=== PATIENT | female | born 1940 | race Caucasian/White ===

== ENCOUNTER → 2017-05-21 12:48 | Outpatient (CLI) | payer MEDICARE, OTHER, SELFPAY ==
[2017-05-21 14:55] LABS: BNP,B-Type NATRIURETIC PEPTIDE 247.3 pg/mL (0-100)
[2017-05-21 15:05] LABS: Erythrocyte Sedimentation Rate 3 mm/hr (0-30)
== END ==
PROVIDERS: Family Provider Family Medicine; PCP Family Medicine; Visit Provider Internal Medicine Pulmonary Disease
DX: R06.00 Dyspnea, unspecified (principal); R91.1 Solitary pulmonary nodule; M25.50 Pain in unspecified joint
CPT/HCPCS: 36415; 83880; 85652

== ENCOUNTER → 2017-05-24 12:15 | Outpatient (CLI) | payer MEDICARE, OTHER, SELFPAY ==
[2017-05-24 14:40] LABS: International Normalized Ratio 2.5; Prothrombin Time (Protime)PT. 27.1 SECONDS (11.7-14.9)
== END ==
PROVIDERS: Family Provider Family Medicine; PCP Family Medicine; Visit Provider Nurse Practitioner Family
DX: Z79.899 Other long term (current) drug therapy (principal)
CPT/HCPCS: 36415; 85610

== ENCOUNTER 2017-06-25 14:03 | Outpatient (RCR) | payer MEDICARE, OTHER, SELFPAY ==
[2017-06-25 16:06] LABS: International Normalized Ratio 1.8
== END 2017-07-23 13:20 | disposition home or self-care (01) ==
LOC: MTLAB 14:03
PROVIDERS: Family Provider Family Medicine; PCP Family Medicine; Visit Provider Nurse Practitioner Family
DX: I26.99 Other pulmonary embolism without acute cor pulmonale (principal); Z79.899 Other long term (current) drug therapy
CPT/HCPCS: 36415; 85610

== ENCOUNTER 2017-08-19 18:51 | Emergency (ER) | payer MEDICARE, OTHER, SELFPAY ==
[2017-08-19 18:51] VITALS: BP 175/66; PULSE 68; RESP 15; TEMP 37.1; O2SAT 97; BMI 30.2
[2017-08-19 19:26] LABS: Hematocrit 37.6 % (37-47); Hemoglobin 12.3 g/dl (12.0-15.0); Mean Corp Hgb Conc 32.7 g/gl (32-36); Mean Corpuscular Hgb 31.4 pg (27.0-32.0); Mean Corpuscular Volume 95.9 fL (81-99); Mean Platelet Vol. 9.7 fl (6.2-12.0); Platelet Count 137 K/mm3 (150-450); RBC Distribution Width CV 12.8 % (11.6-14.6); RBC Distribution Width SD 44.3 fl (35.1-43.9); Red Blood Count 3.92 M/mm3 (4.2-5.4); White Blood Count 5.7 K/mm3 (4.4-11.0)
[2017-08-19 19:33] LABS: Scan Indicated on CBC? Y/N NO
[2017-08-19 19:44] LABS: Anion Gap 8 (5-15); BUN 21 mg/dL (7-18); BUN/Creat Ratio 19.8 RATIO (10-20); Calcium,Total 8.5 mg/dL (8.5-10.1); Chloride 102 mmol/L (98-107); Creatinine, Serum 1.06 mg/dL (0.55-1.02); EST Glomerular Filtration Rate 53 mL/min (>60); Est Glom Filt Rate - Afr Amer 64 mL/min (>60); Estimated Creatinine Clearance 33.01 ml/min; Glucose 101 mg/dL (74-106); Potassium 4.3 mmol/L (3.5-5.1); Sodium Level 141 mmol/L (136-145)
[2017-08-19 19:47] VITALS: BP 140/59; BP 157/68; BP 166/80; PULSE 68; PULSE 70
--- NOTE | 2017-08-19 19:48 | ED.RN ---
PT STATES SHE HAS FALLEN SEVERAL TIMES SINCE EASTER AND POOR BALANCE.
--- NOTE | 2017-08-19 20:23 | ED.VISSUMM ---
- ER Visit Summary Date of Service: 08/19/17 Chief Complaint: Lightheadedness History of Present Illness: The patient is a 76 F who presents because of lightheadedness. She was sitting and titi to use the restroom. She stated she needed to have a bowel movement. She did complain of nausea question of diaphoresis. She had no other symptoms with this episode. She is reported chest pain intermittently that is transient at best. There is no associated symptoms with the chest pain. There is no radiation to the jaw, extremities or back. She denies black stool or maroon stool. She denies any vomiting. 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 Physical Examination: Vital signs are marked for an elevated blood pressure 140/8079. Orthostatic vital signs are normal. HEENT exam is remarkable for cataract surgery. Otherwise exam is normal. Heart is irregularly irregular. Lungs are clear to auscultation. Abdomen soft nontender. Neuro exam is nonfocal. Test Results: CBC is remarkable for a platelet count of 137. BMP is marked for threatening of 1.06. Troponin is less than 0.015. Emergency Department Course and Treatment: To evaluate patient's symptoms in light of her age and and will obtain EKG and troponin to evaluate for cardiac ischemia. CBC to evaluate for anemia. BMP to assess electrolyte and BUN/creatinine ratio. Orthostatics were obtained as well. Treatment Plan: Since her workup is unremarkable and she had urged to use the restroom in my professional medical opinion patient had a near psychosocial secondary to vasovagal event. Disposition: Discharged to home Impression: Vasovagal near syncopal episode Transient mid chest pain of noncardiac etiology History of non-Hodgkin's lymphoma History of hypertension History obstructive sleep apnea History of pulmonary embolus Atrial fibrillation with rate control This note was generated with [employer] dictation software. It may contain incorrect words, spelling, and punctuation that were not noted in review of the chart prior to signing ED Disposition - Plan for ED Patient: Disposition: Home or Assisted Living Chief Complaint: Syncope Instructions: ED Near Syncope Vasovagal Referrals: Roosevelt Mahan, [Primary Care Provider] - As Needed
--- NOTE | 2017-08-19 20:28 | ED.DCSUM_ITS ---
- ER Visit Summary Date of Service: 08/19/17 Chief Complaint: Lightheadedness History of Present Illness: The patient is a 76 F who presents because of lightheadedness. She was sitting and titi to use the restroom. She stated she needed to have a bowel movement. She did complain of nausea question of diaphoresis. She had no other symptoms with this episode. She is reported chest pain intermittently that is transient at best. There is no associated symptoms with the chest pain. There is no radiation to the jaw, extremities or back. She denies black stool or maroon stool. She denies any vomiting. 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 Physical Examination: Vital signs are marked for an elevated blood pressure 140/ 8079. Orthostatic vital signs are normal. HEENT exam is remarkable for cataract surgery. Otherwise exam is normal. Heart is irregularly irregular. Lungs are clear to auscultation. Abdomen soft nontender. Neuro exam is nonfocal. Test Results: CBC is remarkable for a platelet count of 137. BMP is marked for threatening of 1.06. Troponin is less than 0.015. Emergency Department Course and Treatment: To evaluate patient's symptoms in light of her age and and will obtain EKG and troponin to evaluate for cardiac ischemia. CBC to evaluate for anemia. BMP to assess electrolyte and BUN/ creatinine ratio. Orthostatics were obtained as well. Treatment Plan: Since her workup is unremarkable and she had urged to use the restroom in my professional medical opinion patient had a near psychosocial secondary to vasovagal event. Disposition: Discharged to home Impression: Vasovagal near syncopal episode Transient mid chest pain of noncardiac etiology History of non-Hodgkin's lymphoma History of hypertension History obstructive sleep apnea History of pulmonary embolus Atrial fibrillation with rate control This note was generated with [employer] dictation software. It may contain incorrect words, spelling, and punctuation that were not noted in review of the chart prior to signing ED Disposition - Plan for ED Patient: Disposition: Home or Assisted Living Chief Complaint: Syncope Instructions: ED Near Syncope Vasovagal Referrals: Roosevelt Mahan, [Primary Care Provider] - As Needed
[2017-08-19 20:36] VITALS: BP 144/74; PULSE 67; RESP 16
== END 2017-08-19 20:36 | disposition home or self-care (01) ==
PROVIDERS: Emergency Provider Emergency Medicine; Family Provider Family Medicine; PCP Family Medicine
DX: R55 Syncope and collapse (principal); G47.33 Obstructive sleep apnea (adult) (pediatric); I48.91 Unspecified atrial fibrillation; I10 Essential (primary) hypertension; R07.89 Other chest pain; Z85.72 Personal history of non-Hodgkin lymphomas; Z86.711 Personal history of pulmonary embolism; Z79.01 Long term (current) use of anticoagulants; Z79.899 Other long term (current) drug therapy; E03.9 Hypothyroidism, unspecified
CPT/HCPCS: 80048; 84484; 85027; 99285; A4216

== ENCOUNTER → 2017-08-28 14:09 | Outpatient (CLI) | payer MEDICARE, OTHER, SELFPAY ==
--- NOTE | 2017-08-28 14:09 | DT_ITS ---
This patient was seen during an EMR downtime August 26, 2017 - September 02, 2017. This patient may have a combination of paper and electronic documentation or all paper documentation. All documentation is viewable within the e-chart portion of [facility] for each patient visit.
[2017-09-02 11:29] LABS: T4 Free Direct 1.71 ng/dL (0.76-1.46); Thyroid Stim Hormone (TSH) 0.43 uIU/mL (0.358-3.74)
[2017-09-02 11:34] LABS: Hemoglobin 12.2 g/dl (12.0-15.0); Mean Corp Hgb Conc 32.1 g/gl (32-36); Mean Corpuscular Hgb 31.5 pg (27.0-32.0); Mean Corpuscular Volume 98.2 fL (81-99); Mean Platelet Vol. 10.7 fl (6.2-12.0); Platelet Count 185 K/mm3 (150-450); RBC Distribution Width CV 12.4 % (11.6-14.6); RBC Distribution Width SD 43.6 fl (35.1-43.9); Red Blood Count 3.87 M/mm3 (4.2-5.4); Scan Indicated on CBC? Y/N NO; White Blood Count 5.7 K/mm3 (4.4-11.0)
== END ==
PROVIDERS: Family Provider Family Medicine; PCP Family Medicine; Visit Provider Family Medicine
DX: E03.9 Hypothyroidism, unspecified (principal); I10 Essential (primary) hypertension; R55 Syncope and collapse; Z79.01 Long term (current) use of anticoagulants
CPT/HCPCS: 36415; 84439; 84443; 85027; 85610

== ENCOUNTER → 2017-09-04 13:28 | Outpatient (CLI) | payer MEDICARE, OTHER, SELFPAY ==
--- NOTE | 2017-09-04 13:33 | CT_ITS ---
STUDY: CT CHEST/THORAX WITHOUT CONTRAST REASON FOR EXAM: Female, 76 years old. Lung nodule follow-up. RADIATION DOSAGE (If Supplied By Facility): CTDIvol = ( 12.25 ) mGy, DLP = ( 345.98 ) mGycm TECHNIQUE: Transaxial imaging was performed without the administration of intravenous contrast material. Multiplanar coronal and sagittal images were reformatted. Individualized dose optimization techniques were used for this CT. COMPARISON: CT chest/thorax without contrast September 04, 2016. FINDINGS: The 5 mm nodule noted previously in the lingula of the left upper lobe is less conspicuous today. Groundglass nodules seen previously in the anteromedial right upper lobe (dictated as right middle lobe on previous exam) have cleared. The lungs again are underexpanded. Lobulated soft tissue density in the inferior right lower lobe abutting the diaphragm is unchanged. Calcified granuloma in the inferior right upper lobe near the minor fissure (series 4 image 41, 06 at image 114) is stable. 2 mm nodule in the anterolateral periphery of the right upper lobe on series 4 image 28 is also stable. There is stable 2-3 mm nodule in the lateral periphery of the left upper lobe on series 4 image 37. There is stable subsegmental atelectasis in the left lung base. There is no demonstrated pleural abnormality. Normal heart and pericardium. There is dense calcification in the mitral valve annulus Stable borderline to mildly enlarged lymph nodes in the medial aortopulmonary window and precarinal tissues. A few additional nonspecific subcentimeter lymph nodes seen in the left anterior mediastinum Normal hilar regions. Normal unenhanced pulmonary arteries. There is stable atherosclerotic calcification of the ascending aorta, the aortic arch, the proximal brachiocephalic arteries, and descending thoracic aorta. There are multi-level degenerative changes of the thoracic spine. There are relatively acute fractures of the posterior right eighth and 10th ribs, the 10th rib fracture showing two thirds shaft width displacement. There are healing fractures in varying stage at the anterolateral and lateral right eighth rib as well as posterolateral and lateral right ninth rib There are stable postsurgical changes along the fundus and greater curvature the stomach, as well as a cluster of surgical clips adjacent to the medial posterior aspect of the spleen. Surgical clips of prior cholecystectomy noted in the gallbladder fossa. CT/Chest without Contrast IMPRESSION: 1. Pulmonary nodules described on previous study are either stable or resolved, as noted. There are a few additional stable small nodules, also described above. 2. The lungs are hypoexpanded. Stable subsegmental atelectasis left lung base as well as lobulated soft tissue density in the inferior right lower lobe abutting the diaphragm, which may also be atelectasis. 3. There is dense calcification of the mitral valve. 4. There is vascular calcification seen in the coronary arteries and thoracic aorta. 5. Stable borderline to mildly enlarged lymph nodes in the aorticopulmonary window and precarinal tissues. No new adenopathy. 6. Multiple right rib fracture deformities of varying degrees of healing, as noted, new since previous exam. 7. Postsurgical changes of the stomach and posterior left upper quadrant again noted. Prior cholecystectomy. Electronically Signed: Sergio Robin MD at 15:35 EDT , Service support ,
== END ==
PROVIDERS: Family Provider Family Medicine; PCP Family Medicine; Visit Provider Internal Medicine Pulmonary Disease
DX: R91.8 Other nonspecific abnormal finding of lung field (principal)
CPT/HCPCS: 71250

== ENCOUNTER → 2017-09-09 10:44 | Outpatient (CLI) | payer MEDICARE, OTHER, SELFPAY | PROVIDERS: Family Provider Family Medicine; PCP Family Medicine; Visit Provider Family Medicine | DX: R55 Syncope and collapse (principal) | CPT/HCPCS: 93225; 93226 ==

== ENCOUNTER → 2017-09-12 15:48 | Outpatient (CLI) | payer MEDICARE, OTHER, SELFPAY ==
[2017-09-12 17:42] LABS: International Normalized Ratio 1.7; Prothrombin Time (Protime)PT. 19.8 SECONDS (11.7-14.9)
== END ==
PROVIDERS: Family Provider Family Medicine; PCP Family Medicine; Visit Provider Family Medicine
DX: Z79.899 Other long term (current) drug therapy (principal)
CPT/HCPCS: 85610

== ENCOUNTER 2017-10-04 15:30 | Emergency (ER) | payer MEDICARE, OTHER, SELFPAY ==
[2017-10-04 15:31] VITALS: BP 164/74; PULSE 69; RESP 16; TEMP 36.9; O2SAT 97; BMI 30.4
[2017-10-04] MEDS: Ondansetron 4 MG/2 ML Vial IV (16:30)
[2017-10-04] MEDS: Morphine 4 MG/ML Syringe IV (16:30)
[2017-10-04] MEDS: 0.9% Normal Saline 1,000 ML 150 ML IV (16:30)
[2017-10-04 16:33] LABS: Absolute Lymphocyte Count 1.42 X10^3/ul (0.83-4.51); Absolute Neutrophil Count 2.7 X10^3/uL (2.0-7.7); Basophil# 0.01 X10^3/uL; Basophil% 0.2 % (0-1); Eosinophil# 0.05 X10^3/uL; Eosinophils% 1.1 % (0-5); Hemoglobin 11.5 g/dl (12.0-15.0); Lymphocyte # 1.42 X10^3/ul (4.0); Lymphocyte % 30.3 % (19-41); Mean Corp Hgb Conc 33.8 g/gl (32-36); Mean Corpuscular Hgb 32.7 pg (27.0-32.0); Mean Corpuscular Volume 96.6 fL (81-99); Mean Platelet Vol. 10.5 fl (6.2-12.0); Monocyte# 0.46 X10^3/uL; Monocyte% 9.8 % (0-10); Neutrophil # 2.74 X10^3/uL (2.7-7.7); Neutrophil % 58.4 % (47-70); Platelet Count 122 K/mm3 (150-450); RBC Distribution Width CV 12.9 % (11.6-14.6); Red Blood Count 3.52 M/mm3 (4.2-5.4); White Blood Count 4.7 K/mm3 (4.4-11.0)
[2017-10-04 16:35] LABS: POSITIVE COUNT NO; POSITIVE DIFFERENTIAL NO; POSITIVE MORPHOLOGY NO
--- NOTE | 2017-10-04 16:35 | RAD_ITS ---
STUDY: X-RAY CHEST REASON FOR EXAM: Female, 77 years old. Right-sided pain TECHNIQUE: Frontal and lateral views of the chest. COMPARISON: CTA chest September 04, 2017 and January 25, 2017 FINDINGS: Surgical clips right and left upper quadrant. IVC filter present. The lungs are clear and expanded. There is no demonstrated pleural abnormality. Normal size heart. Normal mediastinum and radames. Normal visualized pulmonary arteries. Normal visualized aortic arch and descending thoracic aorta. Normal visualized thoracic spine. Normal visualized ribs, clavicles, and shoulders. There is no demonstrated abnormality of the visualized soft tissue structures of the upper abdomen. RAD/Chest PA and Lateral IMPRESSION: Normal x-ray examination of the chest. Electronically Signed: Lobo Teixeira MD at 17:01 EDT , Service support ,
[2017-10-04 17:12] LABS: AST(SGOT) 36 U/L (15-37); Alanine Aminotransfer ALT/SGPT 29 U/L (13-56); Albumin, Serum 3.5 g/dL (3.2-5.0); Alkaline Phosphatase 71 U/L (45-117); Anion Gap 7 (5-15); BUN 20 mg/dL (7-18); BUN/Creat Ratio 19.8 RATIO (10-20); Bilirubin, Direct 0.25 mg/dL (0.00-0.30); Calcium,Total 9.1 mg/dL (8.5-10.1); Chloride 105 mmol/L (98-107); Creatinine, Serum 1.01 mg/dL (0.55-1.02); EST Glomerular Filtration Rate 56 mL/min (>60); Est Glom Filt Rate - Afr Amer 68 mL/min (>60); Estimated Creatinine Clearance 32.44 ml/min; Glucose 90 mg/dL (74-106); Potassium 4.1 mmol/L (3.5-5.1); Protein, Total 6.5 g/dL (6.4-8.2); Sodium Level 141 mmol/L (136-145)
[2017-10-04 17:37] VITALS: PULSE 60; RESP 16; O2SAT 97
[2017-10-04 17:42] LABS: Bacteria 0 SEEN /hpf (None Seen); Mucous, Urine 0 SEEN /hpf (<or=2+); Red Blood Cells-Urine 0 SEEN /hpf (0-5); Squamous Epithelial Cells - UA 0 SEEN /hpf (5-10); White Blood Cells 0 SEEN /hpf (0-5)
[2017-10-04 17:51] LABS: Color, Urine Yellow (Yellow); Glucose, Dipstick Normal (Normal); Ketone-Dipstick Negative (Negative); Leukocyte Esterase-Dipstick Negative /ul (Negative); Nitrite-Dipstick Negative (Negative); Occult Blood-Urine Negative /ul (Negative); Protein-Dipstick Negative (Negative); Specific Gravity, Urine 1.025 (1.002-1.030); Urine Bilirubin Dipstick Negative (Negative); Urine Clarity Sl. Cloudy (Clear); Urine Urobilinogen Normal (Normal)
--- NOTE | 2017-10-04 18:25 | ED.VISSUMM ---
- ER Visit Summary Date of Service: 10/04/17 Chief Complaint: Right flank pain History of Present Illness: The patient is a [address] Roosevelt Mahan. She reports that she has right flank pain that began yesterday and is gradually increased since noon. Is a sharp pains 5 out of 10 with movement. It is 2 out of 10 at rest. She states it is not worsened by deep breaths. She denies any associated nausea, vomiting, diarrhea. Her last bowel movement was yesterday. She has had no melena or hematochezia. No dysuria or frequency. Patient reports that she had a CAT scan recently that showed she had multiple rib fractures on that side. She reports that she fell Easter Saturday and at the end of June. She reports her pain is much worse today than it had been. Physical Examination: Vitals: Stable. Afebrile. General: Well-nourished and well-developed. Head: Normocephalic atraumatic. Neck: Supple, no lymphadenopathy. No JVD. Nontender. Cardiovascular: Regular rate and rhythm. No murmurs. Respiratory: No respiratory distress. Clear to auscultation bilaterally. Mild tenderness palpation over the lower ribs on the right anteriorly. Moderate tenderness palpation over the right posterior ribs inferiorly. Abdominal: Soft, nontender, nondistended, normal bowel sounds. No guarding, rebound, or peritoneal signs. Back: Nontender. Extremities: Nontender, no edema. Skin: Normal color, no rash. Neurologic: Alert and oriented ?3. Cranial nerves II through XII are intact. Normal strength and sensation. Psych: Normal affect. Test Results: CBC is marked for an H&H 11.5 and 34.0, platelets 122. Chem-7 more for BUN of 20. LFTs are normal. UA is normal. Chest x-ray shows no acute disease. No pneumothorax or hemothorax. Emergency Department Course and Treatment: Reviewed the patient's prior CT. This was obtained September 04, 2017. It showed multiple right rib fractures in varying degrees of healing. I suspect this is the source of her pain. She treated morphine and Zofran IV and is resting comfortably. Treatment Plan: Patient will be discharged with [place] and Colace. She reports that Konstantin has an incentive spirometer at home. Instructed to follow-up Dr. Roosevelt Mahan in 1 week if not improving. Return to the emergency department for any worsening symptoms. Disposition: To home in improved and stable condition. Impression: 1. Rib fractures on right. This note was generated with [employer] dictation software. It may contain incorrect words, spelling, and punctuation that were not noted in review of the chart prior to signing ED Disposition - Plan for ED Patient: Disposition: Home or Assisted Living Chief Complaint: Flank Pain Instructions: ED Fx Rib Prescriptions: Ondansetron [Zofran Odt] 4 mg PO Q8H PRN PRN #10 tablet PRN Reason: Nausea Docusate Sodium [Colace] 100 mg PO DAILY #20 capsule Hydrocodone/Acetaminophen [[place] 5-325 Tablet] 1 - 2 each PO 4X/DAY PRN PRN 5 Days #20 tablet PRN Reason: Pain Referrals: Roosevelt Mahan DO [Primary Care Provider] - 1 Week if not improving
[2017-10-04 18:53] VITALS: BP 123/74; PULSE 68; RESP 15; O2SAT 98
== END 2017-10-04 18:55 | disposition home or self-care (01) ==
PROVIDERS: Emergency Provider Emergency Medicine; Family Provider Family Medicine; PCP Family Medicine
DX: R07.81 Pleurodynia (principal); S22.41XD Multiple fractures of ribs, right side, subsequent encounter for fracture with routine healing; W19.XXXD Unspecified fall, subsequent encounter; R06.00 Dyspnea, unspecified; R05 Cough; K59.00 Constipation, unspecified; R53.1 Weakness; I25.10 Atherosclerotic heart disease of native coronary artery without angina pectoris; I10 Essential (primary) hypertension; G47.33 Obstructive sleep apnea (adult) (pediatric); Z90.49 Acquired absence of other specified parts of digestive tract; Z79.01 Long term (current) use of anticoagulants; Z79.899 Other long term (current) drug therapy
CPT/HCPCS: 71046; 80048; 80076; 81001; 85025; 96361; 96374; 96375; 99284; J7030; A4216; J2405

== ENCOUNTER 2017-11-26 12:38 | Outpatient (RCR) | payer MEDICARE, OTHER, SELFPAY ==
[2017-11-26 13:54] LABS: International Normalized Ratio 1.8; Prothrombin Time (Protime)PT. 20.6 SECONDS (11.7-14.9)
== END 2017-11-26 14:00 ==
LOC: MTLAB 12:38
PROVIDERS: Family Provider Family Medicine; PCP Family Medicine; Visit Provider Family Medicine
DX: Z79.899 Other long term (current) drug therapy (principal)
CPT/HCPCS: 36415; 85610

== ENCOUNTER → 2018-01-03 15:26 | Outpatient (CLI) | payer MEDICARE, OTHER, SELFPAY ==
[2018-01-03 17:35] LABS: International Normalized Ratio 2.7; Prothrombin Time (Protime)PT. 28.5 SECONDS (11.7-14.9)
[2018-01-03 17:41] LABS: Erythrocyte Sedimentation Rate 4 mm/hr (0-30)
[2018-01-03 18:22] LABS: BNP,B-Type NATRIURETIC PEPTIDE 112.6 pg/mL (0-100)
== END ==
PROVIDERS: Family Provider Family Medicine; PCP Family Medicine; Visit Provider Internal Medicine Pulmonary Disease
DX: R91.1 Solitary pulmonary nodule (principal); R07.9 Chest pain, unspecified; R55 Syncope and collapse; Z79.899 Other long term (current) drug therapy; R06.00 Dyspnea, unspecified
CPT/HCPCS: 36415; 83880; 85610; 85652

== ENCOUNTER 2018-02-14 13:41 | Outpatient (RCR) | payer MEDICARE, OTHER, SELFPAY ==
[2018-02-03 15:55] LABS: International Normalized Ratio 1.6; Prothrombin Time (Protime)PT. 19.2 SECONDS (11.7-14.9)
[2018-02-14 17:56] LABS: International Normalized Ratio 3.4; Prothrombin Time (Protime)PT. 34.9 SECONDS (11.7-14.9)
== END 2018-02-14 14:00 | disposition home or self-care (01) ==
LOC: MTLAB 13:41
PROVIDERS: Family Provider Family Medicine; PCP Family Medicine; Referring Provider Family Medicine; Visit Provider Family Medicine
DX: Z79.899 Other long term (current) drug therapy (principal); Z79.01 Long term (current) use of anticoagulants
CPT/HCPCS: 36415; 83880; 85610

== ENCOUNTER → 2018-02-17 15:09 | Outpatient (CLI) | payer MEDICARE, OTHER, SELFPAY ==
[2017-12-04 13:09] VITALS: BMI 30.4
--- NOTE | 2018-02-17 15:12 | RAD_ITS ---
STUDY: X-RAY CHEST REASON FOR EXAM: Female, 77 years old. Lung nodules. TECHNIQUE: PA and lateral views of the chest. COMPARISON: PA and lateral chest x-ray as well as CT chest/thorax without contrast October 04, 2017. FINDINGS: The lungs again are under expanded, and there is some crowding that limits evaluation. There is stable lobulated density in the inferior right base superimposed on the dome of the diaphragm that correlates with areas of concern on prior imaging. No new infiltrate. There is no demonstrated pleural abnormality. Normal size heart. Normal mediastinum and radames. Normal visualized pulmonary arteries. There is stable mild atherosclerotic calcification of the aortic arch. There are stable degenerative changes and mild dextroscoliosis of the visualized thoracic spine. 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 Surgical clips again project in the bilateral upper quadrants of the abdomen. Inferior vena cava filter is again noted as well. RAD/Chest PA and Lateral IMPRESSION: Stable x-ray examination of the chest, as described. Lobulated density in the inferior right lung base may be nodular atelectasis or true pulmonary nodules. Electronically Signed: Sergio Robin MD at 18:44 EST , Service support ,
--- OUTSIDE RECORDS SUMMARY | 2018-04-01 13:40 | XMS RPT_ITS ---
:1940 Author Organization OHIP Support Name Relationship Address Phone R Unavailable Unavailable Unavailable ZIMMERLY, ROLANDO Unavailable [address] + [place] [address] R Unavailable Unavailable Unavailable ZIMMERLY, ROLANDO Unavailable [address] + [place] [address] R Unavailable Unavailable Unavailable ZIMMERLY, ROLANDO Unavailable [address] + [place] [address] R Unavailable Unavailable Unavailable ZIMMERLY, ROLANDO Unavailable [address] + [place] [address] R Unavailable Unavailable Unavailable ZIMMERLY, ROLANDO Unavailable [address] + [place] [address] R Unavailable Unavailable Unavailable ZIMMERLY, ROLANDO Unavailable [address] + [place] [address] R Unavailable Unavailable Unavailable ZIMMERLY, ROLANDO Unavailable [address] + [place] [address] R Unavailable Unavailable Unavailable ZIMMERLY, ROLANDO Unavailable [address] + [place] [address] ZIMMERLY, LUBA Unavailable [address] + [place] [address] ZIMMERLY, LUBA Unavailable [address] + [place] [address] ZIMMERLY, LUBA Unavailable [address] + [place] [address] ZIMMERLY, LUBA Unavailable [address] + [place] [address] R Unavailable Unavailable Unavailable ZIMMERLY, ROLANDO Unavailable [address] + [place] [address] R Unavailable Unavailable Unavailable ZIMMERLY, ROLANDO Unavailable [address] + [place] [address] R Unavailable Unavailable Unavailable ZIMMERLY, ROLANDO Unavailable [address] [phone] [place] [address] R Unavailable Unavailable Unavailable ZIMMERLY, ROLANDO Unavailable [address] + [place] [address] R Unavailable Unavailable Unavailable ZIMMERLY, ROLANDO Unavailable [address] [phone] [place] [address] R Unavailable Unavailable Unavailable ZIMMERLY, ROLANDO Unavailable [address] + [place] [address] R Unavailable Unavailable Unavailable ZIMMERLY, ROLANDO Unavailable [address] [phone] [place] [address] R Unavailable Unavailable Unavailable ZIMMERLY, ROLANDO Unavailable [address] [phone] [place] [address] R Unavailable Unavailable Unavailable ZIMMERLY, ROLANDO Unavailable [address] [phone] [place] [address] R Unavailable Unavailable Unavailable ZIMMERLY, ROLANDO Unavailable [address] [phone] [place] [address] R Unavailable Unavailable Unavailable ZIMMERLY, ROLANDO Unavailable [address] [phone] [place] [address] R Unavailable Unavailable Unavailable ZIMMERLY, ROLANDO Unavailable [address] [phone] [place] [address] R Unavailable Unavailable Unavailable ZIMMERLY, ROLANDO Unavailable [address] [phone] [place] [address] R Unavailable Unavailable Unavailable ZIMMERLY, ROLANDO Unavailable [address] [phone] [place] [address] R Unavailable Unavailable Unavailable ZIMMERLY, ROLANDO Unavailable [address] [phone] [place] [address] ZIMMERLY, LUBA Unavailable [address] + [place] [address] ZIMMERLY, LUBA Unavailable [address] + [place] [address] Care Team Providers Name Role Phone JAJA PHAN Chely SANA Attending Unavailable BROWN, PATRICIA Primary Care Unavailable YAJAIRA GARG CNP Attending Unavailable BROWN, PATRICIA Primary Care Unavailable YAJAIRA GARG CNP Attending Unavailable BROWN, PATRICIA Primary Care Unavailable Brown, Patricia Attending Unavailable Brown, Patricia Referring Unavailable Brown, Patricia Attending Unavailable Brown, Patricia Referring Unavailable Brown, Patricia Primary Care Unavailable Sibilia, Jonny Attending Unavailable Sibilia, Jonny Referring Unavailable Brown, Patricia Primary Care Unavailable Ellis, Esequiel COSTUME SHOP COORDINATOR-C Attending Unavailable Brown, Patricia Referring Unavailable Ellis, Esequiel COSTUME SHOP COORDINATOR-C Attending Unavailable Brown, Patricia Referring Unavailable Ellis, Esequiel COSTUME SHOP COORDINATOR-C Attending Unavailable Brown, Patricia Primary Care Unavailable Ellis, Esequiel COSTUME SHOP COORDINATOR-C Attending Unavailable Ellis, Esequiel COSTUME SHOP COORDINATOR-C Referring Unavailable Brown, Patricia Primary Care Unavailable Brown, Patricia Attending Unavailable Brown, Patricia Referring Unavailable Brown, Patricia Primary Care Unavailable Ellis, Esequiel COSTUME SHOP COORDINATOR-C Attending Unavailable Ellis, Esequiel COSTUME SHOP COORDINATOR-C Referring Unavailable Brown, Patricia Primary Care Unavailable Brown, Patricia Primary Care Unavailable Cirilo Sal Attending Unavailable Brown, Patricia Attending Unavailable Brown, Patricia Referring Unavailable Brown, Patricia Primary Care Unavailable Sibilia, Jonny Attending Unavailable Sibilia, Jonny Referring Unavailable Brown, Patricia Primary Care Unavailable Brown, Patricia Attending Unavailable Brown, Patricia Referring Unavailable Brown, Patricia Primary Care Unavailable Brown, Patricia Attending Unavailable Brown, Patricia Referring Unavailable Brown, Patricia Primary Care Unavailable Brown, Patricia Attending Unavailable Brown, Patricia Referring Unavailable Brown, Patricia Primary Care Unavailable Brown, Patricia Primary Care Unavailable Timmy Portillo Attending Unavailable Dwain Castaneda Attending Unavailable Brown, Patricia Attending Unavailable Brown, Patricia Referring Unavailable Brown, Patricia Primary Care Unavailable Brown, Patricia Attending Unavailable Brown, Patricia Referring Unavailable Brown, Patricia Primary Care Unavailable Brown, Patricia Attending Unavailable Brown, Patricia Referring Unavailable Brown, Patricia Primary Care Unavailable Sibilia, Jonny Attending Unavailable SibLakisha arita Referring Unavailable Brown, Patricia Primary Care Unavailable Sibilia, Jonny Attending Unavailable Sibilia, Jonny Referring Unavailable Brown, Patricia Primary Care Unavailable Brown, Patricia Attending Unavailable Brown, Patricia Referring Unavailable Brown, Patricia Primary Care Unavailable PROBLEMS PROBLEMS DATE TYPE CONDITION / CODE ATTENDING STATUS SOURCE 03/05/2018 Unknown E03.9 - Brown, Patricia Active [place] Hypothyroidism, Community unspecified / Hospital E03.9(ICD-10) Repository 03/05/2018 Unknown R53.83 - Other Patricia Mahan Active [place] fatigue / Community R53.83(ICD-10) Hospital Repository 03/05/2018 Unknown R29.898 - Other Patricia Mahan Active [place] symptoms and signs Community involving the Hospital musculoskeletal Repository system / R29.898(ICD-10) 03/05/2018 Unknown 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 / Community L60.3(ICD-10) Hospital Repository 02/25/2018 Unknown Z79.899 - Other long Patricia Mahan Active [place] term (current) drug Community therapy / Hospital Z79.899(ICD-10) Repository 12/04/2017 Unknown R55 - Syncope and Patircia Mahan Active [place] collapse / Community R55(ICD-10) Hospital Repository 12/24/2017 Unknown 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 of Community anticoagulants / Hospital Z79.01(ICD-10) Repository 10/04/2017 Unknown S22.39XA - Fracture Timmy Portillo Active [place] of one rib, Community unspecified side, Hospital initial encounter for Repository closed fracture / S22.39XA(ICD-10) 09/09/2017 Unknown R42 - Dizziness and Patricia Mahan Active [place] giddiness / Community R42(ICD-10) Hospital Repository 05/24/2017 Unknown C85.90 - Non-Hodgkin [place] gibson Active [place] lymphoma, COSTUME SHOP COORDINATOR-C Community unspecified, Hospital unspecified site / Repository C85.90(ICD-10) PROCEDURES PROCEDURES No Procedure Records FoundRESULTS RESULTS INTERNAL MEDICINE Observed: 03/05/2018 Status: F Source: [place] OFFICE VISIT 2:23 PM [facility] REPOSITORY [facility] [address] [place] [address] [place] [address] OFFICE VISIT Date of Service: 03/05/18 MR#: [id number] Acct: [id number] Name: JEAN PAUL LICEA Rep #: [id number] : 1940 Provider: Patricia Mahan DO Age/Sex: 77/F [place] [facility] [place] Status: Signed Intake Vital Signs03/05/18 Height 5 ft 03/05/18 Weight: 156 lb 03/05/18 Body Mass Index (BMI) 30.4 03/05/18 Blood Pressure 155/78 H Intake Visit Reasons: 3 MO FU Chief Complaint: 3 Month follow-up visit Is patient in pain?: No Allergies gentamicin Adverse Reaction (Verified 03/05/18 13:21) Unknown Medications Ascorbic Acid 500 mg PO DAILY 06/20/16 [History Confirmed 03/05/18] Calcium Carb/Vitamin D [Caltrate-600 With Vit D Tab] 1 tab PO BIDCM 06/20/16 [History Confirmed 03/05/18] Cetirizine HCl [Zyrtec] 10 mg PO DAILY 06/20/16 [History Confirmed 03/05/18] Cyanocobalamin (Vitamin B-12) [B-12] 1,000 mcg PO DAILY 06/20/16 [History Confirmed 03/05/18] Folic Acid/Vit B Complex and C [B-Complex with Vit C Caplet] 400 mcg PO DAILY 06/20/16 [History Confirmed 03/05/18] Ocean Gate-3 Fatty Acids/Fish Oil [Ocean Gate 3 1,000 mg Softgel] 1 ea PO DAILY 06/20/16 [History Confirmed 03/05/18] Vitamin E (Dl,Tocopheryl Acet) [E-200] 200 unit PO DAILY 06/20/16 [History Confirmed 03/05/18] Multivitamin [Multiple Vitamins] 1 ea PO DAILY 06/21/16 [History Confirmed 03/05/18] artificial tears (hypromellose) 0.3 % eye gel 1 drp OPHTHALMIC ONCE 05/24/17 [History Confirmed 03/05/18] carboxymethylcellulose sodium 1 % eye liquid gel drops 1 drp OPHTHALMIC 4-8XD PRN 05/24/17 [History Confirmed 03/05/18] prednisolone acetate 1 % eye drops,suspension 1 drp OPHTHALMIC Q4H 05/24/17 [History Confirmed 03/05/18] solifenacin 10 mg tablet 10 mg PO QDAY 07/16/17 [History Confirmed 03/05/18] alendronate 70 mg tablet 70 mg PO QWEEK #14 tab 08/04/17 [Rx Confirmed 03/05/18] levothyroxine 75 mcg tablet 75 mcg PO QDAY #90 tab 08/04/17 [Rx Confirmed 03/05/18] Warfarin [Coumadin] 1 mg PO SUTUTHSA 08/19/17 [History Confirmed 03/05/18] Docusate Sodium [Colace] 100 mg PO DAILY #20 cap 10/04/17 [Rx Confirmed 03/05/18] amlodipine 5 mg tablet 5 mg PO QDAY #90 tab 10/18/17 [Rx Confirmed 03/05/18] furosemide 40 mg tablet 40 mg PO DAILY PRN #90 tab 10/18/17 [Rx Confirmed 03/05/18] lisinopril 40 mg tablet 40 mg PO DAILY #90 tab 10/18/17 [Rx Confirmed 03/05/18] mirabegron ER 25 mg tablet,extended release 24 hr 25 mg PO DAILY 12/04/17 [History Confirmed 03/05/18] nabumetone 500 mg tablet 500 mg PO BID PRN #180 tab 01/21/18 [Rx Confirmed 03/05/18] warfarin 2 mg tablet 2 mg PO MOWEFR #14 tab 02/11/18 [Rx Confirmed 03/05/18] [facility] Medical History History of pneumonia (Acute) Osteoporosis (Chronic) Degenerative arthritis (Acute) Pulmonary embolism (Acute) Corneal dystrophy (Acute) Non Hodgkin's lymphoma (Acute) Arthritis (Chronic) Chronic pain (Chronic) History of blood clots (Acute) Hypertension (Chronic) Hypothyroidism (Chronic) Sleep apnea (Chronic) Surgical History History of Achilles tendon repair (Acute) History of cholecystectomy (Acute) History of colonoscopy (Acute) history of heart cath (Acute) Family History Father Heart disease Cancer prostate Mother No problems noted. Social History Smoking Status: Never smoker alcohol intake: never substance use type: does not use what type of physical activity do you participate in: none HPI HPI Chief Complaint: 3 Month follow-up visit Details: JEAN PAUL LICEA, is a 77 F who presents to the office today for multiple problems. She is having increasing difficulty walking but it seems to be basically because of being weak. She has nails on her left foot that are very thickened and she is unable to cut. She is concerned that her thyroid dose may be off as it has not been checked in about a year. Her major complaint is that she is increasingly weak and increasingly unstable when she walks. ROS Const Constitutional: No chills, fatigue, fever(s), frequent falls, malaise, weakness, sleep problems or change in appetite Eyes Eyes: No blurry vision, change in vision, double vision, discharge or visual disturbances ENT ENT: Positive for mouth pain (Tongue sore); no abnormal hearing, ear pain, ear pressure, tinnitus or dizziness/vertigo Resp Respiratory: No cough, shortness of breath or wheezing Cardio Cardiology: No chest pain at rest, chest pain with exertion, shortness of breath, dyspnea on exertion, generalized swelling, irregular heart rhythm, lightheadedness, orthopnea, fast heart rate or palpitations Gastro GI: No abdominal pain, change in bowel habits, constipation, diarrhea, nausea/dyspepsia or vomiting Genitourinary-Female: No difficulty urinating, burning urination, painful urination, urinary incontinence, urinary frequency, urinary urgency, urinary hesitancy, urinary retention, Frequent nighttime urination/ nocturia, sexual problems, genital lesions, abnormal vaginal bleeding, pelvic pain, vaginal dryness, vaginal odor or Vaginal Itching Musc Musculoskeletal: No joint pain, back pain, joint swelling, limited range of motion, numbness or tingling Skin Skin: Positive for nail changes (Left large toe); no change in skin color, itching, rash or wounds Breast Breast: No breast lump or breast pain Neuro Neurology: Positive for unsteady gait/balance, dizziness and memory loss; no frequent falls, weakness, visual disturbances, abnormal hearing, numbness, tingling or loss of vision Psych Psychiatric: No change in appetite, Positive for memory loss, No anxiety, No depression, No Thoughts of harming yourself/Others Endo Endocrine: No fatigue, heat intolerance, increased thirst/drinking, increased hunger or increased urination Aller/Imm Allergy/Immunologic: No wheezing, itchy eyes or seasonal allergy symptoms Lamin/Lymp Hematologic/Lymphatic: No easy bleeding, easy bruising or enlarged lymph nodes Exam Const General: frail appearing Nutritional Appearance: average body habitus Orientation: oriented x3 HENMT Head: normal to inspection Ears: hearing grossly normal bilaterally Nose: external nose normal Face and sinus: normal facial exam Mouth: oral mucosae normal Teeth and gingiva: dentition normal Throat: posterior oropharynx normal Neck Neck: no lymphadenopathy Neck mass: No Resp Effort AND Inspection: normal respiratory effort Auscultation: Bilateral: Clear to Auscultation Cardio Rate: regular rate Rhythm: regular rhythm Skin Lesions: no lesions Neuro Gait: gait assisted Method: walking stick Extrem General: no clubbing, cyanosis or edema Assessment AND Plan Problems 1. Osteoporosis M81.0 2. Degenerative arthritis M19.90 3. Non Hodgkin's lymphoma C85.90 4. History of blood clots Z86.718 5. Hypertension I10 6. Generalized weakness R53.1 Plan This patient was seen for routine checkup. Her health appears to be declining as she is much more frail and is having significant difficulty with walking. She does not complain of any specific pain just weakness in the feeling of being very unstable. She also has very dystrophic nails on the left foot but other than that her exam was unchanged from prior exams. I have ordered a number of different things for her. First were going to get physical therapy on to see if we can help with gait training. Second are going to have her see a news videotape editor to deal with the dystrophic nails on the left foot. Then I going to do some blood work to evaluate her blood count check her thyroid status. I am not very hopeful that with the multiplicity of problems she has had in the past that were going to be able to keep her out of a care facility for much longer. Orders Orders: Referrals: Plan Detail Follow Up 3 Months Coding Level of Care Code Off vis,est,level 4 Diagnoses Osteoporosis M81.0 Degenerative arthritis M19.90 Non Hodgkin's lymphoma C85.90 History of blood clots Z86.718 Hypertension I10 Generalized weakness R53.1 03/05/18 1423 <Electronically signed by Patricia Mahan DO> Date Patricia Mahan DO Cosigner Signature: Date (if applicable) CC: CBC W/DIFF, AUTOMATED Collected: 03/05/2018 Status: F Source: [place] 2:15 PM [facility] REPOSITORY TYPE CODE TESTS RESULT OUT OF RANGE REFERENCE UNITS LAB L100.1000 4.4-11.0 K/mm3 Normal WBC 4.6 LAB L100.1200 4.2-5.4 M/mm3 Low RBC 3.52 LAB L100.1300 12.0-15.0 g/dl Low HGB 11.5 LAB L100.1400 37-47 % Low HCT 34.4 LAB L100.1500 81-99 fL Normal MCV 97.7 LAB L100.1600 27.0-32.0 pg High MCH 32.7 LAB L100.1700 32-36 g/gl Normal MCHC 33.4 LAB L100.1810 11.6-14.6 % Normal RDW CV 12.2 LAB L100.1820 35.1-43.9 fl Normal RDW SD 42.0 LAB L100.1900 150-450 K/mm3 Low PLT 148 LAB L100.2000 6.2-12.0 fl Normal MPV 10.1 LAB L100.2100 47-70 % Normal NEUT% 65.9 LAB L100.2200 19-41 % Normal LY% 23.9 LAB L100.2300 0-10 % Normal MONO% 9.1 LAB L100.2400 0-5 % Normal EO% 0.9 LAB L100.2500 0-1 % Normal BASO% 0.2 LAB L100.2550 0.0-0.9 % Normal IM GRAN % 0.000 Result Comment: IG% - Immature Granulocytes (promyelocytes, myelocytes and metamyelocytes) > 1% indicates that a LEFT SHIFT is Present. LAB L100.2620 2.0-7.7 X10 3/uL Normal Absolute Neut 3.0 LAB L100.2720 0.83-4.51 X10 3/ul Normal Absolute Lymph 1.10 Performed By: #### L100.0100 #### [facility] [address] [place], [address] THYROID STIM HORMONE Collected: 03/05/2018 Status: F Source: [place] (TSH) 2:15 PM [facility] REPOSITORY TYPE CODE TESTS RESULT OUT OF RANGE REFERENCE UNITS LAB L501.9520 0.358-3.74 uIU/mL Low TSH 0.31 Performed By: #### L501.9520, L506.0400 #### [facility] [address] [place], [address] T4 FREE DIRECT Collected: 03/05/2018 Status: F Source: [place] 2:15 PM [facility] REPOSITORY TYPE CODE TESTS RESULT OUT OF REFERENCE UNITS RANGE LAB L506.0400 0.76-1.46 ng/dL High T4 FREE 1.70 DIRECT Performed By: #### L501.9520, L506.0400 #### [facility] [address] [place], [address] PROTHROMBIN TIME W/INR Collected: 03/03/2018 Status: F Source: [place] 1:37 PM [facility] REPOSITORY TYPE CODE TESTS RESULT OUT OF RANGE REFERENCE UNITS LAB L300.4150 11.7-14.9 SECONDS High PROTIME 23.1 LAB L300.4200 Normal INR 2.0 Performed By: #### L300.3900 #### [facility] [address] [place], [address] PROTHROMBIN TIME W/INR Collected: 02/26/2018 Status: F Source: [place] 1:27 PM [facility] REPOSITORY TYPE CODE TESTS RESULT OUT OF RANGE REFERENCE UNITS LAB L300.4150 11.7-14.9 SECONDS High PROTIME 33.8 LAB L300.4200 Normal INR 3.3 Performed By: #### L300.3900 #### [facility] [address] [place], [address] CHEST PA AND LATERAL Observed: 02/17/2018 Status: F Source: [place] 3:13 PM [facility] REPOSITORY [facility] [address] [place] [address] Chest PA and Lateral MR#: [id number] Acct: [id number] Name: JEAN PAUL LICEA Rep #: [id number] : 1940 F 77 From: Morris Robin MD PCP: Patricia Mahan DO Status: REG CLI Study: Chest PA and Lateral Date of Exam: 02/17/18 Exam# [id number] Ordering Dr: Jonny Esteban MD STUDY: X-RAY CHEST REASON FOR EXAM: Female, 77 years old. Lung nodules. TECHNIQUE: PA and lateral views of the chest. COMPARISON: PA and lateral chest x-ray as well as CT chest/thorax without contrast October 04, 2017. FINDINGS: The lungs again are under expanded, and there is some crowding that limits evaluation. There is stable lobulated density in the inferior right base superimposed on the dome of the diaphragm that correlates with areas of concern on prior imaging. No new infiltrate. There is no demonstrated pleural abnormality. Normal size heart. Normal mediastinum and radames. Normal visualized pulmonary arteries. There is stable mild atherosclerotic calcification of the aortic arch. There are stable degenerative changes and mild dextroscoliosis of the visualized thoracic spine. 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 Surgical clips again project in the bilateral upper quadrants of the abdomen. Inferior vena cava filter is again noted as well. RAD/Chest PA and Lateral IMPRESSION: Stable x-ray examination of the chest, as described. Lobulated density in the inferior right lung base may be nodular atelectasis or true pulmonary nodules. Electronically Signed: Sergio Robin MD at 18:44 EST , Service support , CC: Patricia Mahan DO; Jonny Esteban MD Navigation Teacher: Signed PROTHROMBIN TIME W/INR Collected: 02/14/2018 Status: F Source: [place] 1:44 PM [facility] REPOSITORY TYPE CODE TESTS RESULT OUT OF RANGE REFERENCE UNITS LAB L300.4150 11.7-14.9 SECONDS High PROTIME 34.9 LAB L300.4200 Normal INR 3.4 Performed By: #### L300.3900 #### [facility] [address] [address] [place], [place], [address] PROTHROMBIN TIME W/INR Collected: 02/03/2018 Status: F Source: [place] 2:25 PM [facility] REPOSITORY TYPE CODE TESTS RESULT OUT OF RANGE REFERENCE UNITS LAB L300.4150 11.7-14.9 SECONDS High PROTIME 19.2 LAB L300.4200 Normal INR 1.6 Performed By: #### L300.3900 #### [facility] [address] [place], [place], [address] PROTHROMBIN TIME W/INR Collected: 01/03/2018 Status: F Source: [place] 3:30 PM [facility] REPOSITORY Order Comment: Comments: Standing order --to be done monthly DR. MAHAN ORDERED PT DR. ESTEBAN ORDERED BTNP,SED Comments: Standing order --to be done monthly TYPE CODE TESTS RESULT OUT OF RANGE REFERENCE UNITS LAB L300.4150 11.7-14.9 SECONDS High PROTIME 28.5 LAB L300.4200 Normal INR 2.7 Performed By: #### L300.3900 #### [facility] [address] [place], [place], [address] ERYTHROCYTE SED RATE Collected: 01/03/2018 Status: F Source: [place] 3:30 PM [facility] REPOSITORY Order Comment: DR. MAHAN ORDERED PT DR. ESTEBAN ORDERED BTNP,SED TYPE CODE TESTS RESULT OUT OF RANGE REFERENCE UNITS LAB L102.0000 0-30 mm/hr Normal SED RATE 4 Performed By: #### L101.9900 #### [facility] [place], [place], [address] BNP,B-TYPE NATRIURETIC Collected: 01/03/2018 Status: F Source: [place] PEPTIDE 3:30 PM [facility] REPOSITORY Order Comment: DR. MAHAN ORDERED PT DR. ESTEBAN ORDERED BTNP,SED TYPE CODE TESTS RESULT OUT OF RANGE REFERENCE UNITS LAB L503.6620 0-100 pg/mL High B-TYPE 112.6 ZAKI PEP Performed By: #### L503.6620 #### [facility] [address] [place], [place], [address] INTERNAL MEDICINE Observed: 12/04/2017 Status: F Source: [place] OFFICE VISIT 2:20 PM [facility] [address] [place] [address] [place] [address] OFFICE VISIT Date of Service: 12/04/17 MR#: [id number] Acct: [id number] Name: JEAN PAUL LICEA Rep #: [id number] : 1940 Provider: Patricia Mahan DO Age/Sex: 77/F [place] [facility] Status: Signed Intake Vital Signs12/04/17 Height 5 ft Intake Visit Reasons: 3 mo fu Chief Complaint: follow-up visit Is patient in pain?: No Allergies gentamicin Adverse Reaction (Verified 10/04/17 15:33) Unknown Medications Ascorbic Acid 500 mg PO DAILY 06/20/16 [History Confirmed 08/19/17] Calcium Carb/Vitamin D [Caltrate-600 With Vit D Tab] 1 tab PO BIDCM 06/20/16 [History Confirmed 08/19/17] Cetirizine HCl [Zyrtec] 10 mg PO DAILY 06/20/16 [History Confirmed 12/04/17] Cyanocobalamin (Vitamin B-12) [B-12] 1,000 mcg PO DAILY 06/20/16 [History Confirmed 08/19/17] Folic Acid/Vit Bcomp,C [B-Complex with Vit C Caplet] 400 mcg PO DAILY 06/20/16 [History Confirmed 08/19/17] Ocean Gate-3 Fatty Acids/Fish Oil [Ocean Gate 3 1,000 mg Softgel] 1 ea PO DAILY 06/20/16 [History Confirmed 08/19/17] Vitamin E (Dl,Tocopheryl Acet) [E-200] 200 unit PO DAILY 06/20/16 [History Confirmed 08/19/17] Multivitamin [Multiple Vitamins] 1 ea PO DAILY 06/21/16 [History Confirmed 08/19/17] artificial tears (hypromellose) 0.3 % eye gel 1 drp OPHTHALMIC ONCE 05/24/17 [History Confirmed 08/19/17] carboxymethylcellulose sodium 1 % eye liquid gel drops 1 drp OPHTHALMIC 4-8XD PRN 05/24/17 [History Confirmed 08/19/17] ofloxacin 0.3 % eye drops 2 drp OPHTHALMIC Q4H 05/24/17 [History Confirmed 08/19/17] prednisolone acetate 1 % eye drops,suspension 1 drp OPHTHALMIC Q4H 05/24/17 [History Confirmed 08/19/17] solifenacin 10 mg tablet 10 mg PO QDAY 07/16/17 [History Confirmed 08/19/17] alendronate 70 mg tablet 70 mg PO QWEEK #14 tab 08/04/17 [Rx Confirmed 08/19/17] levothyroxine 75 mcg tablet 75 mcg PO QDAY #90 tab 08/04/17 [Rx Confirmed 12/04/17] Warfarin Sodium [Coumadin] 2 mg PO MOWEFR 08/19/17 [History Confirmed 08/19/17] Warfarin [Coumadin] 1 mg PO SUTUTHSA 08/19/17 [History Confirmed 08/19/17] Docusate Sodium [Colace] 100 mg PO DAILY #20 cap 10/04/17 [Rx] amlodipine 5 mg tablet 5 mg PO QDAY #90 tab 10/18/17 [Rx] furosemide 40 mg tablet 40 mg PO DAILY PRN #90 tab 10/18/17 [Rx] lisinopril 40 mg tablet 40 mg PO DAILY #90 tab 10/18/17 [Rx] nabumetone 500 mg tablet 500 mg PO BID PRN #60 tab 12/03/17 [Rx] mirabegron ER 25 mg tablet,extended release 24 hr 25 mg PO DAILY 12/04/17 [History Confirmed 12/04/17] PFSH Medical History History of pneumonia (Acute) Osteoporosis (Chronic) Degenerative arthritis (Acute) Pulmonary embolism (Acute) Corneal dystrophy (Acute) Non Hodgkin's lymphoma (Acute) Arthritis (Chronic) Chronic pain (Chronic) History of blood clots (Acute) Hypertension (Chronic) Hypothyroidism (Chronic) Sleep apnea (Chronic) Surgical History History of Achilles tendon repair (Acute) History of cholecystectomy (Acute) History of colonoscopy (Acute) history of heart cath (Acute) Family History Father Heart disease Cancer prostate Mother No problems noted. Social History Smoking Status: Never smoker alcohol intake: never substance use type: does not use what type of physical activity do you participate in: none HPI HPI Chief Complaint: follow-up visit Details: JEAN PAUL LICEA, is a 77 F who presents to the office today for routine check up. She has had some more episodes of syncope ROS Const Constitutional: Positive for fatigue and weakness; no weight change, body ache, chills, sleep problems, fever(s), change in appetite, snoring, frequent falls, headache(s) or excessive sweating Eyes Eyes: No change in vision, eye pain, light sensitivity or blurry vision ENT ENT: No headache(s), abnormal hearing, ear pain, tinnitus, nasal congestion, sore throat or neck pain Resp Respiratory: No snoring, cough, shortness of breath or wheezing Cardio Cardiology: Positive for chest pain at rest; no excessive sweating, chest pain with exertion, shortness of breath, dyspnea on exertion, palpitations, orthopnea or lightheadedness Gastro GI: Positive for constipation; no abdominal pain, change in bowel habits, diarrhea, vomiting, nausea/dyspepsia or cramping Genitourinary-Female: No burning urination, painful urination, urinary incontinence, urinary frequency, abnormal vaginal bleeding, pelvic pain or other Musc Musculoskeletal: No neck pain, abnormal walking, joint pain, back pain, limited range of motion, numbness or tingling Skin Skin: No redness, dry skin, itching, lesions, wounds or rash Neuro Neurology: Positive for weakness, dizziness and memory loss; no frequent falls, headache(s), abnormal hearing, abnormal walking, numbness, tingling or abnormal speech Psych Psychiatric: No change in appetite, Positive for memory loss, No anxiety, No depression, No Thoughts of harming yourself/Others Endo Endocrine: Positive for fatigue; no excessive sweating, cold intolerance, increased thirst/drinking, heat intolerance, flushing or increased hunger Aller/Imm Allergy/Immunologic: No wheezing, itchy eyes, hives or seasonal allergy symptoms Lamin/Lymp Hematologic/Lymphatic: No easy bleeding, easy bruising or enlarged lymph nodes Exam Const General: frail appearing Nutritional Appearance: average body habitus Orientation: oriented x3 [facility] Head: normal to inspection Ears: hearing grossly normal bilaterally Nose: external nose normal Face and sinus: normal facial exam Mouth: oral mucosae normal Teeth and gingiva: dentition normal Throat: posterior oropharynx normal Neck Neck: no lymphadenopathy Neck mass: No Resp Effort AND Inspection: normal respiratory effort Auscultation: Bilateral: Clear to Auscultation Cardio Rate: regular rate Rhythm: regular rhythm Skin Lesions: no lesions Extrem General: no clubbing, cyanosis or edema Assessment AND Plan Problems 1. Hypertension I10 2. History of blood clots Z86.718 3. History of non-Hodgkin's lymphoma Z85.72 4. 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 Syncopal episodes R55 Patient Instructions This patient is here for regular checkup. Since I last have seen her she is gone through her 30 day patient monitor. On this monitor it showed 4 episodes where she had a winky block phenomena dropping her heart rate to as low as 36. When I done a 48 hour Holter monitor earlier this summer it did not show that arrhythmia and that certainly explains her episodes of syncope. Physical examination is unchanged I told her that perhaps decreasing or eliminating the metoprolol would take care of this problem but if it did not pacemaker would be the only other solution she understood this we also discussed problems she is having with her eyes and indeed apparently needs another retinal surgery. I talked about her INR results the need to do regular monthly checks to make sure she falls within therapeutic limits and she understands that. 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 Syncopal episodes R55 12/04/17 1420 <Electronically signed by Patricia Mahan DO> Date Patricia Mahan DO Cosigner Signature: Date (if applicable) CC: PROTHROMBIN TIME W/INR Collected: 11/26/2017 Status: F Source: [place] 12:43 PM [facility] REPOSITORY TYPE CODE TESTS RESULT OUT OF RANGE REFERENCE UNITS LAB L300.4150 11.7-14.9 SECONDS High PROTIME 20.6 LAB L300.4200 Normal INR 1.8 Performed By: #### L300.3900 #### [facility] [address] [place], [address] Observed: 11/18/2017 Status: F Source: [facility] 12:16 PM [facility] REPOSITORY . MICRO - Microbiology PROCEDURE: Urine Culture [*1] SOURCE: Urine BODY SITE: COLLECTED DATE/TIME: 11/18/2017 12:16 EDT RECEIVED DATE/TIME: 11/18/2017 22:35 EDT START DATE/TIME: 11/18/2017 22:35 EDT FREE TEXT SOURCE: FINAL REPORTS Final Report [] Verified Date/Time/Personnel: 11/20/2017 07:15 EDT 10,000 organisms per mL Mixed without predominant isolate(s). Sensitivity Testing not indicated. Probably contamination. Repeat culture suggested. PRELIMINARY REPORTS Preliminary Report [] Verified Date/Time/Personnel: 11/19/2017 08:38 EDT No growth to date Performing Locations *1: This test was performed at: [facility], [address] [place] [address], [address] [place] [address] Performed By: #### CUR #### [address] [address] UA Collected: 11/18/2017 Status: F Source: [facility] 12:15 PM [facility] REPOSITORY TYPE CODE TESTS RESULT OUT OF RANGE REFERENCE UNITS LAB SPCUA(RAMIRO NC) UA Specimen Type Not Given LAB CLRUA(RAM[place]O NC) UA Color Yellow LAB APPUA(RAMIRO Clear NC) UA Appear Clear LAB SGUA(LOIN C) UA Spec Unknown Grav 1.005 LAB GLUA(LOIN Negative mg/dL C) UA Glucose Negative LAB BILUA(RAMIRO Negative NC) UA Bili Negative LAB KETUA(RAM[place] Negative mg/dL NC) UA Ketones Negative LAB BLDUA(RAMIRO Negative NC) UA Blood Negative LAB PHUA(LOIN C) UA pH 6.0 LAB PROUA(RAMIRO Negative mg/dL NC) UA Protein Negative LAB UROUA(RAMIRO E.U./dL NC) UA Urobilinogen 0.2 LAB NITUA(RAMIRO Negative NC) UA Nitrite Negative LAB LEUUA(RAMIRO Negative NC) UA Leuk Est Negative Performed By: #### UAMICAO, UA #### [facility] [address] [place], [place] [address] .URINALYSIS MICROSCOPIC Collected: 11/18/2017 Status: F Source: [facility] 12:15 PM [facility] REPOSITORY TYPE CODE TESTS RESULT OUT OF REFERENCE UNITS RANGE LAB WBCUA(LOIN None Seen /hpf C) UA WBC None Seen LAB RBCUA(LOIN None Seen /hpf C) UA RBC None Seen LAB EPIUA(LOIN None Seen /hpf C) UA Squam Epithelial None Seen Performed By: #### UAMICAO, UA #### [facility] [address] [place], [place] [address] BMP Collected: 11/18/2017 Status: F Source: [facility] 12:15 [facility] REPOSITORY TYPE CODE TESTS RESULT OUT OF REFERENCE UNITS RANGE LAB GLU(LOINC) 83-110 mg/dL Glucose Level 88 LAB NA(LOINC) 136-145 mmol/L Sodium Level 141 LAB K(LOINC) 3.5-5.1 mmol/L Potassium Level 4.1 LAB CL(LOINC) 98-107 mmol/L Chloride 101 LAB CO2(LOINC) 23-31 mmol/L CO2 High 34 LAB EBAL(LOINC mEq/L ) Electrolyte Balance 6.0 LAB BUN(LOINC) 7-18 mg/dL BUN High 27 LAB CRE(LOINC) 0.55-1.02 mg/dL Creatinine High Lvl (s) 1.20 LAB BC(LOINC) 7-27 ratio BUN/Creatinine 22 Ratio LAB CA(LOINC) 8.4-10.2 mg/dL Calcium Lvl 9.4 Performed By: #### GFR, BMP #### [address] [address] .GFR Collected: 11/18/2017 Status: F Source: [facility] 12:15 [facility] REPOSITORY TYPE CODE TESTS RESULT OUT OF REFERENCE UNITS RANGE LAB GFRAA(LOINC ml/min/1.73 ) sqm GFR 53 Colombian Result Comment: GFR Population mean for , Non- Americans Ages 20-29 = 116 mL/min/1.73 sq.m. Ages 30-39 = 107 mL/min/1.73 sq.m. Ages 40-49 = 99 mL/min/1.73 sq.m. Ages 50-59 = 93 mL/min/1.73 sq.m. Ages 60-69 = 85 mL/min/1.73 sq.m. Ages 70+ = 75 mL/min/1.73 sq.m. Chronic Kidney Disease: Less than 60 mL/min/1.73 square meters End Stage Renal Disease: Less than 15 mL/min/1.73 square meters LAB GFRNO(LOINC) ml/min/1.73sqm GFR Non- 43 Result Comment: GFR Population mean for , Non- Americans Ages 20-29 = 116 mL/min/1.73 sq.m. Ages 30-39 = 107 mL/min/1.73 sq.m. Ages 40-49 = 99 mL/min/1.73 sq.m. Ages 50-59 = 93 mL/min/1.73 sq.m. Ages 60-69 = 85 mL/min/1.73 sq.m. Ages 70+ = 75 mL/min/1.73 sq.m. Chronic Kidney Disease: Less than 60 mL/min/1.73 square meters End Stage Renal Disease: Less than 15 mL/min/1.73 square meters Performed By: #### GFR, [facility] #### [place] [address] EMERGENCY DEPARTMENT Observed: 10/05/2017 Status: F Source: [place] SUMMARY 12:49 AM [facility] REPOSITORY [facility] Medical Records Department [address] [place] [id number] Emergency Department Summary 10/04/17 1825 MR#: [id number] Acct: [id number] Name: JEAN PAUL LICEA Rep #: [id number] : 1940 77 From: Timmy Portillo MD PCP: Patricia Mahan DO Status: DEP ER - ER Visit Summary Date of Service: 10/04/17 Chief Complaint: Right flank pain History of Present Illness: The patient is a [address] Patricia Mahan. She reports that she has right flank pain that began yesterday and is gradually increased since noon. Is a sharp pains 5 out of 10 with movement. It is 2 out of 10 at rest. She states it is not worsened by deep breaths. She denies any associated nausea, vomiting, diarrhea. Her last bowel movement was yesterday. She has had no melena or hematochezia. No dysuria or frequency. Patient reports that she had a CAT scan recently that showed she had multiple rib fractures on that side. She reports that she fell Easter Saturday and at the end of June. She reports her pain is much worse today than it had been. Physical Examination: Vitals: Stable. Afebrile. General: Well-nourished and well-developed. Head: Normocephalic atraumatic. Neck: Supple, no lymphadenopathy. No JVD. Nontender. Cardiovascular: Regular rate and rhythm. No murmurs. Respiratory: No respiratory distress. Clear to auscultation bilaterally. Mild tenderness palpation over the lower ribs on the right anteriorly. Moderate tenderness palpation over the right posterior ribs inferiorly. Abdominal: Soft, nontender, nondistended, normal bowel sounds. No guarding, rebound, or peritoneal signs. Back: Nontender. Extremities: Nontender, no edema. Skin: Normal color, no rash. Neurologic: Alert and oriented 3. Cranial nerves II through XII are intact. Normal strength and sensation. Psych: Normal affect. Test Results: CBC is marked for an H AND H 11.5 and 34.0, platelets 122. Chem-7 more for BUN of 20. LFTs are normal. UA is normal. Chest x-ray shows no acute disease. No pneumothorax or hemothorax. Emergency Department Course and Treatment: Reviewed the patient's prior CT. This was obtained September 04, 2017. It showed multiple right rib fractures in varying degrees of healing. I suspect this is the source of her pain. She treated morphine and Zofran IV and is resting comfortably. Treatment Plan: Patient will be discharged with Juntura and Colace. She reports that Konstantin has an incentive spirometer at home. Instructed to follow-up Dr. Patricia Mahan in 1 week if not improving. Return to the emergency department for any worsening symptoms. Disposition: To home in improved and stable condition. Impression: 1. Rib fractures on right. This note was generated with Friendseeation software. It may contain incorrect words, spelling, and punctuation that were not noted in review of the chart prior to signing ED Disposition - Plan for ED Patient: Disposition: Home or Assisted Living Chief Complaint: Flank Pain Instructions: ED Fx Rib Prescriptions: Ondansetron [Zofran Odt] 4 mg PO Q8H PRN PRN #10 tablet PRN Reason: Nausea Docusate Sodium [Colace] 100 mg PO DAILY #20 capsule Hydrocodone/Acetaminophen [Juntura 5-325 Tablet] 1 - 2 each PO 4X/DAY PRN PRN 5 Days #20 tablet PRN Reason: Pain Referrals: Patricia Mahan, DO [Primary Care Provider] - 1 Week if not improving What to do if you have Problems For any increased pain, shortness of breath, bleeding, nausea or vomiting, chest pain, or any unexpected problems, contact your Primary Care Provider. Call [facility] ([phone]) or report to the closest Emergency Room. Call 911 if necessary. 10/05/17 0049 <Electronically signed by Timmy Portillo MD> Date Timmy Portillo MD Cosigner Signature (If Indicated): Date CC: Patricia Mahan DO URINALYSIS, COMPLETE Collected: 10/04/2017 Status: F Source: [place] 5:34 PM [facility] REPOSITORY Order Comment: Order Date: 10/04/17 Has pt arrived? Y How was Urine Obtained? CLEAN CATCH TYPE CODE TESTS RESULT OUT OF RANGE REFERENCE UNITS LAB L400.3000 Yellow COLOR Normal Yellow LAB L400.3050 Clear Normal CLARITY Sl. Cloudy LAB L400.3200 Normal mg/dl Normal GLUCOSE, UR Normal LAB L400.3300 Negative mg/dL Normal BILIRUBIN URINE Negative LAB L400.3400 Negative mg/dl Normal KETONE UR Negative LAB L400.3465 1.002-1.030 Normal SP.GR. DIPSTX 1.025 LAB L400.3550 5.0 - 8.0 pH UR Normal 7.0 LAB L400.3600 Negative mg/dl PROT Normal DIPSTX Negative LAB L400.3700 Normal mg/dl Normal UROBILI Normal LAB L400.3750 Negative Normal NITRITE UR Negative LAB L400.3780 Negative /ul Normal OCCULT BLOOD-UR Negative LAB L400.3800 Negative /ul LEUK Normal ESTERASE Negative LAB L400.4050 0-5 /hpf WBC 0 Normal SEEN LAB L400.4100 0-5 /hpf 0 Normal RBC-UA SEEN LAB L400.4150 5-10 /hpf SQUAM 0 Normal EPI SEEN LAB L400.4300 None Seen /hpf 0 Normal BACTERIA SEEN LAB L400.4350 <or=2+ /hpf 0 Normal MUCUS, URINE SEEN Performed By: #### L400.0001 #### [facility] [address] [place], [place], [id number] CBC W/DIFF, AUTOMATED Collected: 10/04/2017 Status: F Source: [place] 4:24 PM [facility] REPOSITORY TYPE CODE TESTS RESULT OUT OF RANGE REFERENCE UNITS LAB L100.1000 4.4-11.0 K/mm3 Normal WBC 4.7 LAB L100.1200 4.2-5.4 M/mm3 Low RBC 3.52 LAB L100.1300 12.0-15.0 g/dl Low HGB 11.5 LAB L100.1400 37-47 % Low HCT 34.0 LAB L100.1500 81-99 fL Normal MCV 96.6 LAB L100.1600 27.0-32.0 pg High MCH 32.7 LAB L100.1700 32-36 g/gl Normal MCHC 33.8 LAB L100.1810 11.6-14.6 % Normal RDW CV 12.9 LAB L100.1820 35.1-43.9 fl High RDW SD 44.0 LAB L100.1900 150-450 K/mm3 Low PLT 122 LAB L100.2000 6.2-12.0 fl Normal MPV 10.5 LAB L100.2100 47-70 % Normal NEUT% 58.4 LAB L100.2200 19-41 % Normal LY% 30.3 LAB L100.2300 0-10 % Normal MONO% 9.8 LAB L100.2400 0-5 % Normal EO% 1.1 LAB L100.2500 0-1 % Normal BASO% 0.2 LAB L100.2550 0.0-0.9 % Normal IM GRAN % 0.200 Result Comment: IG% - Immature Granulocytes (promyelocytes, myelocytes and metamyelocytes) > 1% indicates that a LEFT SHIFT is Present. LAB L100.2620 2.0-7.7 X10 3/uL Normal Absolute Neut 2.7 LAB L100.2720 0.83-4.51 X10 3/ul Normal Absolute Lymph 1.42 Performed By: #### L100.0100 #### [facility] [address] [facility] [place], [place], [id number] BASIC METABOLIC Collected: 10/04/2017 Status: F Source: [place] PROFILE ([facility]) 4:24 PM [facility] REPOSITORY TYPE CODE TESTS RESULT OUT OF RANGE REFERENCE UNITS LAB L501.0100 74-106 mg/dL Normal GLU 90 Result Comment: Please note revised GLUCOSE reference range effective 2017. LAB L501.1000 7-18 mg/dL High BUN 20 LAB L501.1100 0.55-1.02 mg/dL Normal CREAT,SERUM 1.01 Result Comment: The validity of the calculated GFR AND GFRAA in patients over 70 years has not been determined. Clinical correlation is essential. LAB L501.1110 >60 mL/min Low EST GFR 56 Result Comment: Non- GFR Calc LAB L501.1115 >60 mL/min Normal EST GFR - AA 68 Result Comment: GFR Calc LAB L501.1255 ml/min Normal Estimated CRCL 32.44 LAB L501.1300 10-20 RATIO Normal BUN/CRE 19.8 LAB L501.2200 8.5-10 mg/dL Normal .1 CA 9.1 LAB L501.5300 136-14 mmol/L Normal 5 NA 141 LAB L501.5600 3.5-5. mmol/L Normal 1 K 4.1 LAB L501.5900 98-107 mmol/L Normal CL 105 LAB L501.6100 21.0-3 mmol/L Normal 2.0 CO2 29.0 LAB L501.6200 5-15 Normal GAP 7 Performed By: #### L500.2500, L500.3400 #### [facility] [address] [place], [place], [address] LIVER PROFILE Collected: 10/04/2017 Status: F Source: [place] 4:24 PM [facility] REPOSITORY TYPE CODE TESTS RESULT OUT OF RANGE REFERENCE UNITS LAB L501.1500 6.4-8.2 g/dL Normal T PROT 6.5 LAB L501.1800 3.2-5.0 g/dL Normal ALB 3.5 LAB L501.1950 2.2-4.2 g/dL Normal GLOB 3.0 LAB L501.4100 15-37 U/L Normal AST 36 LAB L501.4305 45-117 U/L Normal ALK P 71 LAB L501.4405 13-56 U/L Normal ALT 29 LAB L501.4600 0.20-1.00 mg/dL Normal T BILI 0.80 LAB L501.4700 0.00-0.30 mg/dL Normal D BILI 0.25 Performed By: #### L500.2500, L500.3400 #### [facility] [address] [facility] [facility] [place], [place], [address] CHEST PA AND LATERAL Observed: 10/04/2017 Status: F Source: [place] 4:05 PM [facility] REPOSITORY [facility] Imaging Services [address] [place] [address] Chest PA and Lateral MR#: [id number] Acct: [id number] Name: JEAN PAUL LICEA Rep #: [id number] : 1940 F 77 From: Lobo Teixeira MD PCP: Patricia Mahan DO Status: REG ER Study: Chest PA and Lateral Date of Exam: 10/04/17 Exam# [id number] Ordering Dr: Timmy Portillo MD STUDY: X-RAY CHEST REASON FOR EXAM: Female, 77 years old. Right-sided pain TECHNIQUE: Frontal and lateral views of the chest. COMPARISON: CTA chest September 04, 2017 and January 25, 2017 FINDINGS: Surgical clips right and left upper quadrant. IVC filter present. The lungs are clear and expanded. There is no demonstrated pleural abnormality. Normal size heart. Normal mediastinum and radames. Normal visualized pulmonary arteries. Normal visualized aortic arch and descending thoracic aorta. Normal visualized thoracic spine. Normal visualized ribs, clavicles, and shoulders. There is no demonstrated abnormality of the visualized soft tissue structures of the upper abdomen. RAD/Chest PA and Lateral IMPRESSION: Normal x-ray examination of the chest. Electronically Signed: Lobo Teixeira MD at 17:01 EDT , Service support , CC: Patricia Mahan DO; Timmy Portillo MD Navigation Teacher: Signed PROTHROMBIN TIME W/INR Collected: 09/12/2017 Status: F Source: [place] 3:55 PM [facility] REPOSITORY TYPE CODE TESTS RESULT OUT OF RANGE REFERENCE UNITS LAB L300.4150 11.7-14.9 SECONDS High PROTIME 19.8 LAB L300.4200 Normal INR 1.7 Performed By: #### L300.3900 #### [facility] [address] [facility] [place], [address] DOWNTIME REPORT Observed: 09/12/2017 Status: F Source: [place] 12:[address] [facility] Medical Records Department [address] [place] [address] Downtime Report MR#: [id number] Acct: [id number] Name: JEAN PAUL LICEA Rep #: [id number] : 1940 76 From: Rush Huynh PCP: Patricia Mahan DO Status: REG CLI This patient was seen during an EMR downtime August 26, 2017 - September 02, 2017. This patient may have a combination of paper and electronic documentation or all paper documentation. All documentation is viewable within the e-chart portion of Footnote for each patient visit. CHEST WITHOUT Observed: 09/04/2017 Status: F Source: [place] CONTRAST 1:33 PM [facility] REPOSITORY [facility] Imaging Services [address] [place] [address] Chest without Contrast MR#: [id number] Acct: [id number] Name: JEAN PAUL LICEA Rep #: [id number] : 1940 F 76 From: Morris Robin MD PCP: Patricia Mahan, DO Status: REG CLI Study: Chest without Contrast Date of Exam: 09/04/17 Exam# [id number] Ordering Dr: Jonny Esteban MD STUDY: CT CHEST/THORAX WITHOUT CONTRAST REASON FOR EXAM: Female, 76 years old. Lung nodule follow-up. RADIATION DOSAGE (If Supplied By Facility): CTDIvol = ( 12.25 ) mGy, DLP = ( 345.98 ) mGycm TECHNIQUE: Transaxial imaging was performed without the administration of intravenous contrast material. Multiplanar coronal and sagittal images were reformatted. Individualized dose optimization techniques were used for this CT. COMPARISON: CT chest/thorax without contrast September 04, 2016. FINDINGS: The 5 mm nodule noted previously in the lingula of the left upper lobe is less conspicuous today. Groundglass nodules seen previously in the anteromedial right upper lobe (dictated as right middle lobe on previous exam) have cleared. The lungs again are underexpanded. Lobulated soft tissue density in the inferior right lower lobe abutting the diaphragm is unchanged. Calcified granuloma in the inferior right upper lobe near the minor fissure (series 4 image 41, 06 at image 114) is stable. 2 mm nodule in the anterolateral periphery of the right upper lobe on series 4 image 28 is also stable. There is stable 2-3 mm nodule in the lateral periphery of the left upper lobe on series 4 image 37. There is stable subsegmental atelectasis in the left lung base. There is no demonstrated pleural abnormality. Normal heart and pericardium. There is dense calcification in the mitral valve annulus Stable borderline to mildly enlarged lymph nodes in the medial aortopulmonary window and precarinal tissues. A few additional nonspecific subcentimeter lymph nodes seen in the left anterior mediastinum Normal hilar regions. Normal unenhanced pulmonary arteries. There is stable atherosclerotic calcification of the ascending aorta, the aortic arch, the proximal brachiocephalic arteries, and descending thoracic aorta. There are multi-level degenerative changes of the thoracic spine. There are relatively acute fractures of the posterior right eighth and 10th ribs, the 10th rib fracture showing two thirds shaft width displacement. There are healing fractures in varying stage at the anterolateral and lateral right eighth rib as well as posterolateral and lateral right ninth rib There are stable postsurgical changes along the fundus and greater curvature the stomach, as well as a cluster of surgical clips adjacent to the medial posterior aspect of the spleen. Surgical clips of prior cholecystectomy noted in the gallbladder fossa. CT/Chest without Contrast IMPRESSION: 1. Pulmonary nodules described on previous study are either stable or resolved, as noted. There are a few additional stable small nodules, also described above. 2. The lungs are hypoexpanded. Stable subsegmental atelectasis left lung base as well as lobulated soft tissue density in the inferior right lower lobe abutting the diaphragm, which may also be atelectasis. 3. There is dense calcification of the mitral valve. 4. There is vascular calcification seen in the coronary arteries and thoracic aorta. 5. Stable borderline to mildly enlarged lymph nodes in the aorticopulmonary window and precarinal tissues. No new adenopathy. 6. Multiple right rib fracture deformities of varying degrees of healing, as noted, new since previous exam. 7. Postsurgical changes of the stomach and posterior left upper quadrant again noted. Prior cholecystectomy. Electronically Signed: Sergio Robin MD at 15:35 EDT , Service support , CC: Patricia Mahan DO; Jonny Esteban MD Navigation Teacher: Signed CBC-COMPLETE BLOOD CNT Collected: 08/28/2017 Status: F Source: [place] NO DIFF 10:00 AM [facility] REPOSITORY TYPE CODE TESTS RESULT OUT OF RANGE REFERENCE UNITS LAB L100.1000 4.4-11.0 K/mm3 Normal WBC 5.7 LAB L100.1200 4.2-5.4 M/mm3 Low RBC 3.87 LAB L100.1300 12.0-15.0 g/dl Normal HGB 12.2 LAB L100.1400 37-47 % Normal HCT 38.0 LAB L100.1500 81-99 fL Normal MCV 98.2 LAB L100.1600 27.0-32.0 pg Normal MCH 31.5 LAB L100.1700 32-36 g/gl Normal MCHC 32.1 LAB L100.1810 11.6-14.6 % Normal RDW CV 12.4 LAB L100.1820 35.1-43.9 fl Normal RDW SD 43.6 LAB L100.1900 150-450 K/mm3 Normal PLT 185 LAB L100.2000 6.2-12.0 fl Normal MPV 10.7 Performed By: #### L100.0500 #### [facility] [address] [place], [address] THYROID STIM HORMONE Collected: 08/28/2017 Status: F Source: [place] (TSH) 10:00 AM [facility] REPOSITORY Order Comment: Has Patient had X-rays with Contrast this admission? N TYPE CODE TESTS RESULT OUT OF RANGE REFERENCE UNITS LAB L501.9520 0.358-3.74 uIU/mL Normal TSH 0.43 Performed By: #### L501.9520, L506.0400 #### [facility] [address] [place], [address] T4 FREE DIRECT Collected: 08/28/2017 Status: F Source: [place] 10:00 AM [facility] REPOSITORY Order Comment: Has Patient had X-rays with Contrast this admission? N TYPE CODE TESTS RESULT OUT OF REFERENCE UNITS RANGE LAB L506.0400 0.76-1.46 ng/dL High T4 FREE 1.71 DIRECT Performed By: #### L501.9520, L506.0400 #### [facility] [address] [place], [address] EMERGENCY DEPARTMENT Observed: 08/19/2017 Status: F Source: [place] SUMMARY 8:28 PM [facility] REPOSITORY [facility] Medical Records Department [address] [place] [id number] Emergency Department Summary 08/19/172022 MR#: [id number] Acct: [id number] Name: JEAN PAUL LICEA Rep #: [id number] : 1940 76 From: Cirilo Sal MD PCP: Patricia Mahan DO Status: REG ER - ER Visit Summary Date of Service: 08/19/17 Chief Complaint: Lightheadedness History of Present Illness: The patient is a 76 F who presents because of lightheadedness. She was sitting and titi to use the restroom. She stated she needed to have a bowel movement. She did complain of nausea question of diaphoresis. She had no other symptoms with this episode. She is reported chest pain intermittently that is transient at best. There is no associated symptoms with the chest pain. There is no radiation to the jaw, extremities or back. She denies black stool or maroon stool. She denies any vomiting. 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 Physical Examination: Vital signs are marked for an elevated blood pressure 140/8079. Orthostatic vital signs are normal. HEENT exam is remarkable for cataract surgery. Otherwise exam is normal. Heart is irregularly irregular. Lungs are clear to auscultation. Abdomen soft nontender. Neuro exam is nonfocal. Test Results: CBC is remarkable for a platelet count of 137. BMP is marked for threatening of 1.06. Troponin is less than 0.015. Emergency Department Course and Treatment: To evaluate patient's symptoms in light of her age and and will obtain EKG and troponin to evaluate for cardiac ischemia. CBC to evaluate for anemia. BMP to assess electrolyte and BUN/creatinine ratio. Orthostatics were obtained as well. Treatment Plan: Since her workup is unremarkable and she had urged to use the restroom in my professional medical opinion patient had a near psychosocial secondary to vasovagal event. Disposition: Discharged to home Impression: Vasovagal near syncopal episode Transient mid chest pain of noncardiac etiology History of non-Hodgkin's lymphoma History of hypertension History obstructive sleep apnea History of pulmonary embolus Atrial fibrillation with rate control This note was generated with [employer] dictation software. It may contain incorrect words, spelling, and punctuation that were not noted in review of the chart prior to signing ED Disposition - Plan for ED Patient: Disposition: Home or Assisted Living Chief Complaint: Syncope Instructions: ED Near Syncope Vasovagal Referrals: Patricia Mahan DO [Primary Care Provider] - As Needed What to do if you have Problems For any increased pain, shortness of breath, bleeding, nausea or vomiting, chest pain, or any unexpected problems, contact your Primary Care Provider. Call [facility] ([phone]) or report to the closest Emergency Room. Call 911 if necessary. 08/19/172027 <Electronically signed by Cirilo Sal MD> Date Cirilo Sal MD Cosigner Signature (If Indicated): Date CC: Patricia Mahan DO CBC-COMPLETE BLOOD CNT Collected: 08/19/2017 Status: F Source: [place] NO DIFF 7:20 PM [facility] REPOSITORY TYPE CODE TESTS RESULT OUT OF RANGE REFERENCE UNITS LAB L100.1000 4.4-11.0 K/mm3 Normal WBC 5.7 LAB L100.1200 4.2-5.4 M/mm3 Low RBC 3.92 LAB L100.1300 12.0-15.0 g/dl Normal HGB 12.3 LAB L100.1400 37-47 % Normal HCT 37.6 LAB L100.1500 81-99 fL Normal MCV 95.9 LAB L100.1600 27.0-32.0 pg Normal MCH 31.4 LAB L100.1700 32-36 g/gl Normal MCHC 32.7 LAB L100.1810 11.6-14.6 % Normal RDW CV 12.8 LAB L100.1820 35.1-43.9 fl High RDW SD 44.3 LAB L100.1900 150-450 K/mm3 Low PLT 137 LAB L100.2000 6.2-12.0 fl Normal MPV 9.7 Performed By: #### L100.0500 #### [facility] [address] [place], [address] BASIC METABOLIC Collected: 08/19/2017 Status: F Source: [place] PROFILE (BMP) 7:20 PM [facility] REPOSITORY TYPE CODE TESTS RESULT OUT OF RANGE REFERENCE UNITS LAB L501.0100 74-106 mg/dL Normal GLU 101 Result Comment: Fasting Glucose result from 100 to 125 mg/dL suggests IMPAIRED HOMEOSTASIS per A.D.A. criteria. Please note revised GLUCOSE reference range effective 2017. LAB L501.1000 7-18 mg/dL High BUN 21 LAB L501.1100 0.55-1.02 mg/dL High CREAT,SERUM 1.06 Result Comment: The validity of the calculated GFR AND GFRAA in patients over 70 years has not been determined. Clinical correlation is essential. LAB L501.1110 >60 mL/min Low EST GFR 53 Result Comment: Non- GFR Calc LAB L501.1115 >60 mL/min Normal EST GFR - AA 64 Result Comment: GFR Calc LAB L501.1255 ml/min Normal Estimated CRCL 33.01 LAB L501.1300 10-20 RATIO Normal BUN/CRE 19.8 LAB L501.2200 8.5-10 mg/dL Normal .1 CA 8.5 LAB L501.5300 136-14 mmol/L Normal 5 NA 141 LAB L501.5600 3.5-5. mmol/L Normal 1 K 4.3 LAB L501.5900 98-107 mmol/L Normal CL 102 LAB L501.6100 21.0-3 mmol/L Normal 2.0 CO2 31.0 LAB L501.6200 5-15 Normal GAP 8 Performed By: #### L500.2500, L501.4010 #### [facility] [address] [place], [address] TROPONIN-I Collected: 08/19/2017 Status: F Source: [place] 7:20 PM [facility] REPOSITORY TYPE CODE TESTS RESULT OUT OF RANGE REFERENCE UNITS LAB L501.4010 <0.045 ng/mL Normal < 0.015 TROPONIN-I Result Comment: TROPONIN-I EXPECTED VALUES <0.045 Negative 0.045 - 0.590 Consistent with Cardiac Damage > OR = 0.600 Critical Value Not every elevated troponin is indicative of ND. These values should be used with clinical judgement in examining the patient's clinical picture for diagnosis. To establish a diagnosis of ND versus myocardial injury, there must be a demonstrated rise and/or fall in the troponin values, in addition to ischemic symptoms, EKG changes, new regional wall motion abnormality, and/or angiographical evidence. PLEASE NOTE: REFERENCE RANGES EDITED 17 Performed By: #### L500.2500, L501.4010 #### [place] [facility] [address] [place], [address] INTERNAL MEDICINE Observed: 07/16/2017 Status: F Source: [place] OFFICE VISIT 5:34 PM [facility] REPOSITORY [facility] [address] [place] [address] [place] [address] OFFICE VISIT Date of Service: 07/16/17 MR#: [id number] Acct: [id number] Name: JEAN PAUL LICEA Rep #: [id number] : 1940 Provider: Patricia Mahan DO Age/Sex: 76/F Location: [facility] Status: Signed Intake Vital Signs07/16/17 Height 4 ft 10 in Intake Visit Reasons: FU Chief Complaint: follow-up visit Is patient in pain?: Yes (back ) Pain scale (1-10): 5 Allergies gentamicin Adverse Reaction (Verified 07/17/16 13:05) Unknown Medications Alendronate Sodium [Fosamax] 70 mg PO QWEEK 06/20/16 [History Confirmed 07/16/17] Ascorbic Acid 500 mg PO DAILY 06/20/16 [History Confirmed 07/16/17] Atenolol [Tenormin] 100 mg PO BID 06/20/16 [History Confirmed 07/16/17] Calcium Carb/Vitamin D [Caltrate-600 With Vit D Tab] 1 tab PO BIDCM 06/20/16 [History Confirmed 05/24/17] Cetirizine HCl [Zyrtec] 10 mg PO DAILY 06/20/16 [History Confirmed 07/16/17] Cyanocobalamin (Vitamin B-12) [B-12] 1,000 mcg PO DAILY 06/20/16 [History Confirmed 07/16/17] Folic Acid/Vit Bcomp,C [B-Complex with Vit C Caplet] 400 mcg PO DAILY 06/20/16 [History Confirmed 07/16/17] Furosemide [Lasix] 40 mg PO DAILY PRN 06/20/16 [History Confirmed 07/16/17] Lisinopril [Zestril] 40 mg PO DAILY 06/20/16 [History Confirmed 07/16/17] Ocean Gate-3 Fatty Acids/Fish Oil [Ocean Gate 3 1,000 mg Softgel] 1 ea PO DAILY 06/20/16 [History Confirmed 07/16/17] Vitamin E (Dl,Tocopheryl Acet) [E-200] 200 unit PO DAILY 06/20/16 [History Confirmed 07/16/17] Multivitamin [Multiple Vitamins] 1 ea PO DAILY 06/21/16 [History Confirmed 07/16/17] Nabumetone [Relafen] 500 mg PO BID 07/17/16 [History Confirmed 07/16/17] amlodipine 5 mg tablet 5 mg PO QDAY 05/24/17 [History Confirmed 05/24/17] artificial tears (hypromellose) 0.3 % eye gel 1 drp OPHTHALMIC ONCE 05/24/17 [History Confirmed 07/16/17] carboxymethylcellulose sodium 1 % eye liquid gel drops 1 drp OPHTHALMIC 4-8XD PRN 05/24/17 [History Confirmed 07/16/17] levothyroxine 75 mcg capsule PO 05/24/17 [History Confirmed 07/16/17] ofloxacin 0.3 % eye drops 2 drp OPHTHALMIC Q4H 05/24/17 [History Confirmed 07/16/17] prednisolone acetate 1 % eye drops,suspension 1 drp OPHTHALMIC Q4H 05/24/17 [History Confirmed 07/16/17] warfarin 1 mg tablet 1 mg PO ONCE tab 05/24/17 [History Confirmed 05/24/17] warfarin 2 mg tablet 2 mg PO QDAY 05/24/17 [History Confirmed 05/24/17] solifenacin 10 mg tablet 10 mg PO QDAY PRN 07/16/17 [History Confirmed 07/16/17] PFSH Medical History History of pneumonia (Acute) Osteoporosis (Chronic) Degenerative arthritis (Acute) Pulmonary embolism (Acute) Corneal dystrophy (Acute) Non Hodgkin's lymphoma (Acute) Arthritis (Chronic) Chronic pain (Chronic) History of blood clots (Acute) Hypertension (Chronic) Hypothyroidism (Chronic) Sleep apnea (Chronic) Surgical History History of Achilles tendon repair (Acute) History of cholecystectomy (Acute) History of colonoscopy (Acute) history of heart cath (Acute) Family History Father Heart disease Cancer prostate Mother No problems noted. Social History Smoking Status: Never smoker alcohol intake: never substance use type: does not use what type of physical activity do you participate in: none HPI HPI Chief Complaint: follow-up visit Details: JEAN PAUL LICEA, is a 76 F who presents to the office today for a pre-op evaluation before eye surgery. She fell several weeks ago and has a lot of facial eccymosis. ROS Const Constitutional: Positive for fatigue, weakness and frequent falls; no weight change, body ache, chills, sleep problems, fever(s), change in appetite, snoring, headache(s) or excessive sweating Eyes Eyes: No change in vision, eye pain, light sensitivity or blurry vision ENT ENT: No headache(s), abnormal hearing, ear pain, tinnitus, nasal congestion, sore throat or neck pain Resp Respiratory: No snoring, cough, shortness of breath or wheezing Cardio Cardiology: Positive for chest pain at rest; no excessive sweating, chest pain with exertion, shortness of breath, dyspnea on exertion, palpitations, orthopnea or lightheadedness Gastro GI: No abdominal pain, change in bowel habits, constipation, diarrhea, vomiting, nausea/dyspepsia or cramping Genitourinary-Female: No burning urination, painful urination, urinary incontinence, urinary frequency, abnormal vaginal bleeding, pelvic pain or other Musc Musculoskeletal: Positive for back pain, numbness and tingling (arms and feet); no neck pain, abnormal walking, joint pain or limited range of motion Skin Skin: No redness, dry skin, itching, lesions, wounds or rash Neuro Neurology: Positive for weakness, frequent falls, numbness, tingling (arms and feet), dizziness, memory loss and unsteady gait/balance; no headache(s), abnormal hearing, abnormal walking or abnormal speech Psych Psychiatric: No change in appetite, Positive for memory loss, No anxiety, No depression, No Thoughts of harming yourself/Others, Positive for difficulty concentrating Endo Endocrine: Positive for fatigue; no excessive sweating, cold intolerance, increased thirst/drinking, heat intolerance, flushing or increased hunger Aller/Imm Allergy/Immunologic: No wheezing, itchy eyes, hives or seasonal allergy symptoms Lamin/Lymp Hematologic/Lymphatic: No easy bleeding, easy bruising or enlarged lymph nodes Exam Const General: cooperative Nutritional Appearance: average body habitus Orientation: oriented x3 Limitations: physical limitations (needs a cane to walk) HENMT Head: normal to inspection, other (Marked facial eccymosis from fall) Ears: hearing grossly normal bilaterally, TM's normal bilaterally Nose: external nose normal Face and sinus: ecchymosis bilaterally Resp Effort AND Inspection: normal respiratory effort Auscultation: Bilateral: Clear to Auscultation Cardio Rate: regular rate Rhythm: regular rhythm Neuro General: oriented x3, no focal motor deficits Cognition: normal cognition Gait: shuffling Extrem General: no calf tenderness, limp Other: marked Assessment AND Plan Problems 1. Retinal tear of right eye H33.311 2. Pulmonary embolism I26.99 3. Hypertension I10 4. History of non-Hodgkin's lymphoma Z85.72 5. Arthritis M19.90 Patient Instructions This patient was seen for preop evaluation they are going to do some eye surgery on the right eye she had surgery for retinal tear was partially successful they are going to do a procedure that I am not familiar with putting a bubble and trying to fasten the rest of the retina down to see if it can improve some of her eyesight. It is important for her to improve the eyesight because her balance is been off she has fallen several times and had a severely contused face and right knee from these falls. She walks very and certainly with a cane and she has had some increased memory loss so part of our plan is doing neurologic evaluation after the completion of the surgery. Plan Detail Follow Up 4 Months Coding Level of Care Code Off vis,est,level 3 Diagnoses Retinal tear of right eye H33.311 Pulmonary embolism I26.99 Hypertension I10 History of non-Hodgkin's lymphoma Z85.72 Arthritis M19.90 07/16/17 5844 <Electronically signed by Patricai Mahan DO> Date Patricia Mahan DO Cosigner Signature: Date (if applicable) CC: PROTHROMBIN TIME W/INR Collected: 06/25/2017 Status: F Source: [place] 2:07 PM [facility] REPOSITORY TYPE CODE TESTS RESULT OUT OF RANGE REFERENCE UNITS LAB L300.4150 11.7-14.9 SECONDS High PROTIME 21.0 LAB L300.4200 Normal INR 1.8 Performed By: #### L300.3900 #### [facility] [address] [place], [address] INTERNAL MEDICINE Observed: 05/24/2017 Status: F Source: [place] OFFICE VISIT 3:37 PM [facility] REPOSITORY [facility] [address] [place] [address] OFFICE VISIT Date of Service: 05/24/17 MR#: [id number] Acct: [id number] Name: JEAN PAUL LICEA Rep #: [id number] : 1940 Provider: Esequiel Ellis NP Age/Sex: 76/F Location[place] [facility] Status: Signed Intake Vital Signs05/24/17 Height 4 ft 11 in Intake Visit Reasons: NEEDS COUMADIN CHECK Chief Complaint: Needs INR order Is patient in pain?: Yes (generalized) Pain scale (1-10): 5 Allergies gentamicin Adverse Reaction (Verified 07/17/16 13:05) Unknown Medications Alendronate Sodium [Fosamax] 70 mg PO QWEEK 06/20/16 [History Confirmed 07/17/16] Ascorbic Acid 500 mg PO DAILY 06/20/16 [History Confirmed 07/17/16] Atenolol [Tenormin] 100 mg PO BID 06/20/16 [History Confirmed 12/10/16] Calcium Carb/Vitamin D [Caltrate-600 With Vit D Tab] 1 tab PO BIDCM 06/20/16 [History Confirmed 07/17/16] Cetirizine HCl [Zyrtec] 10 mg PO DAILY 06/20/16 [History Confirmed 07/17/16] Cyanocobalamin (Vitamin B-12) [B-12] 1,000 mcg PO DAILY 06/20/16 [History Confirmed 07/17/16] Folic Acid/Vit Bcomp,C [B-Complex with Vit C Caplet] 400 mcg PO DAILY 06/20/16 [History Confirmed 07/17/16] Furosemide [Lasix] 40 mg PO DAILY PRN 06/20/16 [History Confirmed 07/17/16] Levothyroxine [Synthroid] 100 mcg PO DAILY 06/20/16 [History Confirmed 12/10/16] Lisinopril [Zestril] 40 mg PO DAILY 06/20/16 [History Confirmed 07/17/16] Ocean Gate-3 Fatty Acids/Fish Oil [Ocean Gate 3 1,000 mg Softgel] 1 ea PO DAILY 06/20/16 [History Confirmed 07/17/16] Vitamin E (Dl,Tocopheryl Acet) [E-200] 200 unit PO DAILY 06/20/16 [History Confirmed 07/17/16] Multivitamin [Multiple Vitamins] 1 ea PO DAILY 06/21/16 [History Confirmed 07/17/16] Mirabegron [Myrbetriq] 50 mg PO DAILY 07/17/16 [History Confirmed 07/17/16] Nabumetone [Relafen] 500 mg PO BID 07/17/16 [History Confirmed 07/17/16] artificial tears (hypromellose) 0.3 % eye gel 1 drp OPHTHALMIC ONCE 05/24/17 [History Confirmed 05/24/17] carboxymethylcellulose sodium 1 % eye liquid gel drops 1 drp OPHTHALMIC 4-8XD PRN 05/24/17 [History Confirmed 05/24/17] ofloxacin 0.3 % eye drops 2 drp OPHTHALMIC Q4H 05/24/17 [History Confirmed 05/24/17] prednisolone acetate 1 % eye drops,suspension 1 drp OPHTHALMIC Q4H 05/24/17 [History Confirmed 05/24/17] warfarin 1 mg tablet 1 mg PO ONCE tab 05/24/17 [History Confirmed 05/24/17] warfarin 2 mg tablet 2 mg PO QDAY 05/24/17 [History Confirmed 05/24/17] [facility] Medical History Non Hodgkin's lymphoma (Acute) Arthritis (Chronic) Chronic pain (Chronic) History of blood clots (Acute) Hypertension (Chronic) Hypothyroidism (Chronic) Sleep apnea (Chronic) Social History Smoking Status: Never smoker HPI [facility] Chief Complaint: Needs INR order Details: JEAN PAUL LICEA, is a 76 F who presents to the office today for an acute visit to have an order for her INR to be checked. She has a past medical history as listed below. 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 She has resumed her regular dose of Coumadin and is due to have a INR checked. She is a patient of Dr. 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 The patient states that she has resumed her Coumadin at the prior instructed dose and denies any current signs of bleeding. She specifically denies any bleeding of the gums, blood in the urine, blood in the stool, or hematemesis. The patient states that she has no acute complaints at this time. The patient otherwise denies any fever, chills, nausea, vomiting, shortness of breath, chest pain or pressure, palpitations, orthopnea, lower extremity edema, syncope or presyncopal episodes. ROS Const Constitutional: Positive for fatigue, sleep problems and weakness; no weight change, body ache, chills, fever(s), change in appetite, snoring, frequent falls, headache(s) or excessive sweating Eyes Eyes: Positive for eye pain and blurry vision; no change in vision or light sensitivity ENT ENT: Positive for neck pain and hearing loss; no headache(s), abnormal hearing, ear pain, tinnitus, nasal congestion or sore throat Resp Respiratory: Positive for wheezing; no snoring, cough or shortness of breath Cardio Cardiology: No excessive sweating, chest pain at rest, chest pain with exertion, shortness of breath, dyspnea on exertion, palpitations, orthopnea or lightheadedness Gastro GI: Positive for bloating; no abdominal pain, change in bowel habits, constipation, diarrhea, vomiting, nausea/dyspepsia or cramping Genitourinary-Female: Positive for urinary incontinence Musc Musculoskeletal: Positive for neck pain, joint pain, back pain, numbness, tingling (fingers, legs chronic) and stiffness; no abnormal walking or limited range of motion Skin Skin: No redness, dry skin, itching, lesions, wounds or rash Neuro Neurology: Positive for weakness, numbness and tingling (fingers, legs chronic); no frequent falls, headache(s), abnormal hearing, abnormal walking, abnormal speech, dizziness or memory loss Psych Psychiatric: No change in appetite, No memory loss, No anxiety, No depression, No Thoughts of harming yourself/Others Endo Endocrine: Positive for fatigue; no excessive sweating, cold intolerance, increased thirst/drinking, heat intolerance, flushing or increased hunger Aller/Imm Allergy/Immunologic: Positive for wheezing; no itchy eyes, hives or seasonal allergy symptoms Lamin/Lymp Hematologic/Lymphatic: No easy bleeding, easy bruising or enlarged lymph nodes Exam Const General: cooperative, comfortable, no acute distress Nutritional Appearance: average body habitus, well nourished Orientation: alert, oriented x3 Limitations: mental status not altered [facility] Head: normal to inspection Mouth: oral mucosa abnormal other (dry) Throat: posterior oropharynx normal Resp Effort AND Inspection: normal respiratory effort, able to speak in complete sentences, normal respiratory pattern, symmetric chest movement, no audible wheezes, no cough Auscultation: Bilateral: Clear to Auscultation Cardio Palpation: normal PMI Rate: regular rate Heart Sounds: S1 normal, S2 normal, normal S1 and S2, no click, no gallops, no murmurs, no rubs Skin General: no rashes or lesions noted, elasticity normal, turgor normal Lesions: no lesions Rashes: no rashes Neuro General: alert, awake, oriented x3, CN's II-XI intact bilaterally Speech: speech normal Gait: gait assisted (cane) Motor: muscle tone normal throughout Extrem General: normal to inspection, no edema, no pedal edema Psych Appearance: grossly normal Mental Status: mental status grossly normal Affect: normal affect Attitude: cooperative Thought Process: normal Assessment AND Plan 1. History of blood clots Z86.718 Plan A standing order for PT/INR was placed for the patient. Her INR was 2.5 which is therapeutic no adjustments to her current Coumadin dosing. Informed patient of this and she will follow-up with Dr. Mahan on her routine appointments in 3 months or sooner if needed 2. Long-term use of high-risk medication Z79.899 Plan Plan as above Orders Orders: 3. HTN (hypertension) I10 Plan Hypertension: Stable on current medications, will not make any adjustments at this time. Will continue with current medication regimen, risk factor reduction, and lifestyle modifications. Discussed dietary changes that should be considered which include reducing the amount of sodium intake. Plan Detail Follow Up 3 months for routine appointment with Dr. Mahan Coding Level of Care Code Off vis,new,level 3 Diagnoses History of blood clots Z86.718 Long-term use of high-risk medication Z79.899 HTN (hypertension) I10 05/24/17 1537 <Electronically signed by Esequiel SANTANA> Date Esequiel SANTANA Cosigner Signature: Date (if applicable) CC: PROTHROMBIN TIME W/INR Collected: 05/24/2017 Status: F Source: [place] 12:21 PM [facility] REPOSITORY Order Comment: Comments: Standing order Comments: Standing order TYPE CODE TESTS RESULT OUT OF RANGE REFERENCE UNITS LAB L300.4150 11.7-14.9 SECONDS High PROTIME 27.1 LAB L300.4200 Normal INR 2.5 Performed By: #### L300.3900 #### [facility] [address] [place], [address] BNP,B-TYPE NATRIURETIC Collected: 05/21/2017 Status: F Source: [place] PEPTIDE 12:55 PM [facility] REPOSITORY TYPE CODE TESTS RESULT OUT OF RANGE REFERENCE UNITS LAB L503.6620 0-100 pg/mL High B-TYPE 247.3 ZAKI PEP Performed By: #### L503.6620 #### [facility] [address] [place], [place], [address] ERYTHROCYTE SED RATE Collected: 05/21/2017 Status: F Source: MELISSA 12:55 PM [facility] REPOSITORY TYPE CODE TESTS RESULT OUT OF RANGE REFERENCE UNITS LAB L102.0000 0-30 mm/hr Normal SED RATE 3 Performed By: #### L101.9900 #### [facility] [address] [place], [address] XR CHEST 2 VIEWS Observed: 04/17/2017 Status: F Source: Appydrink 10:58 AM [facility] REPOSITORY ORIGINAL XR CHEST 2 VIEWS CLINICAL STATEMENT: cough COMPARISON: None FINDINGS:The cardiac contours are normal. There is no pulmonary vascular congestion or consolidation. There is minimal patchy bilateral lower lobe parenchymal changes present without consolidation, pleu ral effusion, or pneumothorax. There are degenerative changes present throughout the osseous structures. Postsurgical changes are noted in the left upper quadrant with partial visualization of an IVC filter. IMPRESSION:Patchy opacities in the lower hemithoraces. There is been little interval change given technical factors from remote CT images dating back to 12/30/2013 Interpreted By: Susi Osborne MD Preliminary Report By: Susi Osborne MD Electronically Signed By: Susi Osborne MD Dictated Date: 04/17/2017 11:14:48 AM Prelim Date: 04/17/2017 11:14:48 AM Sign Date: 04/17/2017 11:16:15 AM ALLERGIES ALLERGIES DATE TYPE / CODE NAME / CODE REACTION SEVERITY SOURCE 03/05/2018 Drug gentamicin/F Unknown Unknown [facility] Allergy/4160 [id number]( Hospital 22229(SNOMED NORM) Repository CT) ENCOUNTERS ENCOUNTERS ADMIT/DISCHARGE ACCOUNT NUMBER ADMITTING ENCOUNTER LOCATION SOURCE CLASS 03/05/2018 [id number] Ambulatory [facility] ding:MTLAB Repository 03/05/2018/03/05/20 [id number] Ambulatory BMSBuilding: [place] [facility] Repository 03/03/2018 [id number] Ambulatory [facility] ding:MTLAB Repository 02/17/2018 [id number] Ambulatory [facility] ding:MTRAD Repository 02/14/2018/02/15/20 [id number] Ambulatory [place] [address] ding:MTLAB Repository 01/03/2018 [id number] Ambulatory [facility] ding:MTLAB Repository 12/04/2017/12/05/19 [id number] Ambulatory BMSBuilding: [place] 18 [facility] Repository 11/26/2017/11/27/19 [id number] Ambulatory [place] ding:MTLAB Repository 11/18/2017/11/19/19 [id number] Ambulatory ABY [place] [address] [place] [address] ding:[facility] Repository 10/24/2017/10/25/19 [id number] Ambulatory ABY Aby[address] ding:RAD [facility] Repository 10/04/2017/10/05/19 [id number] Emergency [place] Melissa[address] ding:ED Repository 09/12/2017 [id number] [facility] 09/09/2017 [id number] [facility] 09/09/2017 [id number] Ambulatory BMSBuilding: [facility] Repository 09/04/2017 [id number] Ambulatory [facility] ding:CT Repository 08/28/2017 [id number] Ambulatory [facility] ding:MTLAB Repository 08/28/2017/08/29/19 [id number] Ambulatory BMSBuilding: [place] 18 BMS.[facility] Repository 08/19/2017/08/20/19 [id number] Emergency [place] Melissa[address] ding:ED Repository 07/23/2017 [id number] Ambulatory [facility] ding:MTLAB Repository 07/16/2017/07/17/19 [id number] Ambulatory BMSBuilding: Melissa 18 BMS.[facility] Repository 06/25/2017/07/24/19 [id number] Ambulatory Melissa Melissa[address] Hospital ding:MTLAB Repository 05/24/2017 [id number] [facility] Repository 05/24/2017/05/25/19 [id number] Ambulatory BMSBuilding: [place] 18 BMS.[facility] Hospital Repository 05/23/2017 [id number] Ambulatory BMSBuilding: [place] BMS.[facility] Hospital Repository 05/21/2017 [id number] Ambulatory [facility] Hospital ding:MTLAB Repository 04/17/2017/04/17/19 [id number] Ambulatory ABY Aby [address] [place] [address] ding:[facility] Repository PAYERS PAYERS ENCOUNTER GUARANTOR PAYER SUBSCRIBER SOURCE 03/05/2018 JEAN PAUL E Primary JEAN PAUL E [place] [id number] Insurance:MEDICARE ZIMMERLYDOB: [facility] PART [facility] [id number] [place] Number: Repository [id number]: 330 [id number] [phone] (HP) Date:2018-03-05 03/05/2018 Secondary JEAN PAUL E [place] Insurance:EVERENCE ZIMMERLYDOB: [facility] [id number] Hospital Number: Repository [id number] Date:0061-81-70JK [address] [address]TN: 03/05/2018 Tertiary NOT GIVENUNK [place] Insurance:SELF PAY [facility] Hospital Number: Effective Repository Date:2018-03-05 03/05/2018 JEAN PAUL E Primary JEAN PAUL E [place] [id number] Insurance:MEDICARE ZIMMERLYDOB: [facility] [id number] [facility] [place] Number: Repository 13835Zzh: 330 [id number] [phone] () Date:2017-12-04 03/05/2018 Secondary JEAN PAUL E [place] Insurance:EVERENCE ZIMMERLYDOB: [facility] 0411-03-27ESB Hospital Number: Repository [id number] Date:0643-77-58ZR [address] [place] [address]KN: 03/05/2018 Tertiary NOT GIVENUNK Melissa Insurance:SELF PAY [facility] [place] Hospital Number: Effective Repository Date:2018-03-05 03/03/2018 JEAN PAUL E Primary JEAN PAUL E [place] [id number] Insurance:MEDICARE ZIMMERLYDOB: [facility] PART A [facility] [id number] [facility] [place] Number: Repository 85086Kfa: 330 [id number] [phone] (HP) Date:2017-11-26 03/03/2018 Secondary JEAN PAUL E [place] Insurance:EVERENCE ZIMMERLYDOB: [facility] [id number] Hospital Number: Repository [id number] Date:6277-58-75NK[address] [place] [address]KM: 03/03/2018 Tertiary NOT GIVENUNK [place] Insurance:SELF PAY [facility] Number: Effective Repository Date:2018-02-25 02/17/2018 JEAN PAUL E Primary JEAN PAUL E [place] [id number] Insurance:MEDICARE [facility]LYD[facility] [id number] [facility] [place] Number: Repository [id number]: 330 [id number] [phone] () Date:2018-02-17 02/17/2018 Secondary JEAN PAUL E [place] Insurance:EVERENCE ZIMMERLYDOB: [facility] [id number] Hospital Number: Repository [id number] Date:8962-47-69YI [address], [place] [address]WQ: 02/17/2018 Tertiary NOT GIVENUNK Melissa Insurance:SELF PAY [facility] Number: Effective Repository Date:2018-02-17 02/14/2018 JEAN PAUL E Primary JEAN PAUL E [place] [id number] Insurance:MEDICARE ZIMMERLYDOB: [facility] [place] PART A [facility] [id number] [facility] [place] Number: Repository [id number]: 330 [id number] [phone] () Date:2017-11-26 02/14/2018 Secondary JEAN PAUL E [place] Insurance:EVERENCE ZIMMERLYDOB: [facility] [id number] Hospital Number: Repository [id number] Date:7515-12-13RZ[address] [place] [address]HN: 02/14/2018 Tertiary NOT GIVENUNK [place] Insurance:SELF PAY [facility] Number: Effective Repository Date:2017-12-24 01/03/2018 JEAN PAUL E Primary JEAN PAUL E [place] [id number] Insurance:MEDICARE ZIMMERLYDOB: Community [place] PART A [facility] [id number] [facility] [place] Number: Repository [id number]: 330 [id number] [phone] (HP) Date:2018-01-03 01/03/2018 Secondary JEAN PAUL E [place] Insurance:EVERENCE ZIMMERLYDOB: [facility] [id number] Hospital Number: Repository [id number] Date:8363-93-75OU [address] [place] [address] [place] [address]OL: 01/03/2018 Tertiary NOT GIVENUNK [place] Insurance:SELF PAY [facility] Hospital Number: Effective Repository Date:2018-01-03 12/04/2017 JEAN PAUL E Primary JEAN PAUL E [place] [id number] Insurance:MEDICARE ZIMMERLYDOB: Community [place] PART A [facility] [id number] [facility] [place] Number: Repository [id number]: 330 [id number] [phone] (HP) Date:2017-09-07 12/04/2017 Secondary JEAN PAUL E [place] Insurance:EVERENCE ZIMMERLYDOB: [facility] [id number] Hospital Number: Repository [id number] Date:9782-88-78BE [address] [place] [place] [address]CP: 12/04/2017 Tertiary NOT GIVENUNK [place] Insurance:SELF PAY [facility] Hospital Number: Effective Repository Date:2017-12-04 11/26/2017 JEAN PAUL E Primary JEAN PAUL E [place] [id number] Insurance:MEDICARE ZIMMERLYDOB: Community [place] PART A [facility] [id number] [facility] [place] Number: Repository [address]Oeq: 330 [id number] [phone] (HP) Date:2017-11-26 11/26/2017 Secondary JEAN PAUL E [place] Insurance:EVERENCE ZIMMERLYDOB: [facility] [id number] Hospital Number: Repository [id number] Date:0878-52-06XZ [address], [place] [address]NC: 11/26/2017 Tertiary NOT GIVENUNK Melissa Insurance:SELF PAY [facility] Number: Effective Repository Date:2017-11-26 11/18/2017 [facility]ARE [facility]: [facility] PART BPolicy Number: [id number] Repository [place] [id number] [address] [place] Date:2017-11-18 - [place], [place] [address]Xut: 330 [id number] 85[address]Yqf: (HP) Name:[facility]8 Administrators LLCPO (HP)Tel: (000) [address]Dzrhxwnxm, 000-0000 (WP) [place] [address]WJ: 11/18/2017 Secondary [facility] Insurance:EVERENCE [facility]: [facility] Number: [id number] Repository [id number] [address] [place] Date:2017-11-18 - [place] 0516-11-50Orrh [address]Yii: (330) Name:[facility] Sree [phone] [place] (HP)Tel: [phone]: (SY) [phone] 10/24/2017 BINGHAMTON E Primary [facility] CharlotteDOB: Insurance:MEDICARE [facility] REXDOB: [facility] PART BPolicy Number: [id number] Repository [place] [id number] [address] [place] [address], [place] Date:2017-10-11 - [place], [place] [address]Rxv: 330 [id number] 00[address]Djf: (HP) Name:[facility] [phone] Administrators LLCPO (HP)Tel: (000) [address]Frtkpzvqr, 000-0000 (WP) [place] [address]VE: 10/24/2017 Secondary JEAN PAUL E [facility] Insurance:EVERENCE OF ZIMMERLYDOB: [facility] Number: [id number] Repository [id number] 9 [place] Date:2017-10-11 - [place] 3692-88-89Bose [address]Qeo: 330) Name:[facility] Sree [phone] [address] [place] (HP)Tel: [phone]: () [phone] 10/04/2017 JEAN PAUL E Primary JEAN PAUL E [place] [id number] Insurance:MEDICARE [facility] HOSPITALMERLYDOB: [facility] [id number] [place] Number: Repository [address]Vjr: 330 [id number] [phone] () Date:2017-10-04 10/04/2017 Secondary JEAN PAUL E [place] Insurance:EVERENCE [facility]IG[facility] HOSPITALMERLYDOB: [facility] [id number] Hospital Number: Repository [id number] Date:4947-83-57DI [address] [place] [address]VH: 10/04/2017 Tertiary NOT GIVENUNK [place] Insurance:SELF PAY [facility] [place] [facility] Number: Effective Repository Date:2017-10-04 09/12/2017 JEAN PAUL E Primary JEAN PAUL E [place] [id number] Insurance:MEDICARE ZIMMERLYDOB: [facility] [id number] [place] Number: Repository [address]Lch: 330 [id number] [phone] () Date:2017-09-12 09/12/2017 Secondary JEAN PAUL E [place] Insurance:EVERENCE ZIMMERLYDOB: [facility] [id number] Hospital Number: Repository [id number] Date:8852-19-63JU [address] [address]WT: 09/12/2017 Tertiary NOT GIVENUNK [place] Insurance:SELF PAY [facility] Number: Effective Repository Date:2017-09-12 09/09/2017 JEAN PAUL E Primary JEAN PAUL E [place] [id number] Insurance:MEDICARE ZIMMERLYDOB[facility] [id number] Number: Repository [address]Gim: 330 [id number] [phone] (HP) Date:2017-08-29 09/09/2017 Secondary JEAN PAUL E [place] Insurance:EVERENCE ZIMMERLYDOB: [facility] [id number] Hospital Number: Repository [id number] Date:7138-50-94LP[address] [address]VU: 09/09/2017 Tertiary NOT GIVENUNK [place] Insurance:SELF PAY [facility] Number: Effective Repository Date:2017-08-29 09/09/2017 JEAN PAUL E Primary JEAN PAUL E [place] [id number] Insurance:MEDICARE ZIMMERLYDOB: [facility] PART A [facility] [id number] [facility] [place] Number: Repository [address]Ojk: 330 [id number] [phone] () Date:2017-08-29 09/09/2017 Secondary JEAN PAUL E [place] Insurance:EVERENCE ZIMMERLYDOB: [facility] [id number] Hospital Number: Repository [id number] Date:7114-28-72MF [address] [address]EK: 09/09/2017 Tertiary NOT GIVENUNK [place] Insurance:SELF PAY [facility] Number: Effective Repository Date:2017-09-09 09/04/2017 JEAN PAUL E Primary JEAN PAUL E [place] [id number] Insurance:MEDICARE ZIMMERLYDOB: [facility] [id number] Number: Repository [id number]: 330 [id number] [phone] (HP) Date:2017-05-21 09/04/2017 Secondary JEAN PAUL E [place] Insurance:EVERENCE ZIMMERLYDOB: [facility] [id number] Hospital Number: Repository [id number] Date:2511-77-54YC [facility] [address] [address]AR: 09/04/2017 Tertiary NOT GIVENUNK [place] Insurance:SELF PAY [facility] Number: Effective Repository Date:2017-05-21 08/28/2017 JEAN PAUL E Primary JEAN PAUL E [place] [id number] Insurance:MEDICARE ZIMMERLYDOB: [facility] [id number] [place] Number: Repository [address]Zau: 330 [id number] [phone] (HP) Date:2017-08-28 08/28/2017 Secondary JEAN PAUL E [place] Insurance:EVERENCE ZIMMERLYDOB: [facility] [id number] Hospital Number: Repository [id number] Date:1569-96-82DI [address] [address]BJ: 08/28/2017 Tertiary NOT GIVENUNK [place] Insurance:SELF PAY [facility] Number: Effective Repository Date:2017-08-28 08/28/2017 JEAN PAUL E Primary JEAN PAUL E [place] [id number] Insurance:MEDICARE ZIMMERLYDOB: [facility] [id number] [facility] [place] Number: Repository [address]Mxi: 330 [id number] [phone] () Date:2017-05-24 08/28/2017 Secondary JEAN PAUL E [place] Insurance:EVERENCE ZIMMERLYDOB: [facility] [id number] Hospital Number: Repository [id number] Date:4342-62-51RV [address] [address]FC: 08/28/2017 Tertiary NOT GIVENUNK Melissa Insurance:SELF PAY [facility] Number: Effective Repository Date:2017-09-05 08/19/2017 JEAN PAUL E Primary JEAN PAUL E [place] [id number] Insurance:MEDICARE ZIMMERLYDOB: [facility] [id number] Acute Long [facility], [place] Number: Repository [address]Piq: 330 [id number] [phone] (HP) Date:2017-08-19 08/19/2017 Secondary JEAN PAUL E [place] Insurance:EVERENCE ZIMMERLYDOB: [facility] [id number] Hospital Number: Repository [id number] Date:5611-59-52DG [address] [address]CX: 08/19/2017 Tertiary NOT GIVENUNK [place] Insurance:SELF PAY [facility] Hospital Number: Effective Repository Date:2017-08-19 07/23/2017 JEAN PAUL E Primary JEAN PAUL E [place] [id number] Insurance:MEDICARE ZIMMERLYDOB: [facility] [id number] [facility] [place] Number: Repository [id number]: 330 [id number] [phone] (HP) Date:2017-06-25 07/23/2017 Secondary JEAN PAUL E [place] Insurance:EVERENCE ZIMMERLYDOB: [facility] [id number] Hospital Number: Repository [id number] Date:7550-76-89KM [address] [address]RU: 07/23/2017 Tertiary NOT GIVENUNK [place] Insurance:SELF PAY [facility] [place] [facility] Number: Effective Repository Date:2017-07-23 07/16/2017 JEAN PAUL E Primary JEAN PAUL E [place] [id number] Insurance:MEDICARE ZIMMERLYDOB: [facility] [id number] Recovery Center [facility] [place] Number: Repository [id number]: 330 [id number] [phone] (HP) Date:2017-07-02 07/16/2017 Secondary JEAN PAUL E [place] Insurance:EVERENCE ZIMMERLYDOB: [facility] [id number] Hospital Number: Repository [id number] Date:9524-94-71[address], [place] [address]XC: 07/16/2017 Tertiary NOT GIVENUNK [place] Insurance:SELF PAY [facility] [place] [facility] Number: Effective Repository Date:2017-07-05 06/25/2017 JEAN PAUL E Primary JEAN PAUL E [place] [id number] Insurance:MEDICARE ZIMMERLYDOB: [facility] [id number] [facility] [place] Number: Repository [id number]: 330 [id number] [phone] (HP) Date:2017-06-25 06/25/2017 Secondary JEAN PAUL E [place] Insurance:EVERENCE ZIMMERLYDOB: [facility] [id number] Hospital Number: Repository [id number] Date:5097-66-78CO [address] [place] [address]EM: 06/25/2017 Tertiary NOT GIVENUNK [place] Insurance:SELF PAY [facility] Number: Effective Repository Date:2017-06-25 05/24/2017 JEAN PAUL E Primary JEAN PAUL E [place] [id number] Insurance:MEDICARE ZIMMERLYDOB: [facility] [id number] [place] Number: Repository [address]Yuy: 330 [id number] [phone] (HP) Date:2017-05-24 05/24/2017 Secondary JEAN PAUL E [place] Insurance:EVERENCE ZIMMERLYDOB: [facility] [id number] Hospital Number: Repository [id number] Date:9181-82-95RS [address] [address]ID: 05/24/2017 Tertiary NOT GIVENUNK [place] Insurance:SELF PAY [facility] Number: Effective Repository Date:2017-05-24 05/24/2017 JEAN PAUL E Primary JEAN PAUL E [place] [id number] Insurance:MEDICARE ZIMMERLYDOB: [facility] [id number] Acute [facility], [place] Number: Repository [address]Kfb: 330 [id number] [phone] (HP) Date:2017-05-23 05/24/2017 Secondary JEAN PAUL E [place] Insurance:EVERENCE ZIMMERLYDOB: [facility] [id number] Hospital Number: Repository [id number] Date:4413-87-97TR [address] [address]JQ: 05/24/2017 Tertiary NOT GIVENUNK [place] Insurance:SELF PAY [facility] Number: Effective Repository Date:2017-05-23 05/23/2017 Jean Paul E Primary JEAN PAUL E [place] [id number] Insurance:MEDICARE ZIMMERLYDOB: [facility] [id number] [place] Number: Repository [id number]: 330 [id number] [phone] (HP) Date:2017-05-23 05/23/2017 Secondary Jean Paul E [place] Insurance:EVERENCE ZimmerlyDOB: [facility] [id number] Hospital Number: Repository [id number] Date:9710-97-56ZD [address] [address]GG: 05/23/2017 Tertiary NOT GIVENUNK [place] Insurance:SELF PAY [facility] [place] [facility] Number: Effective Repository Date:2017-05-23 05/21/2017 Jean Paul E Primary JEAN PAUL E [place] [id number] Insurance:MEDICARE ZIMMERLYDOB: [facility] [id number] [facility] [place] Number: Repository [id number]: 330 [id number] [phone] (HP) Date:2017-05-21 05/21/2017 Secondary Jean Paul E [place] Insurance:EVERENCE ZimmerlyDOB: [facility] [id number] Hospital Number: Repository [id number] Date:9763-91-33MR [address] [address]PE: 05/21/2017 Tertiary NOT GIVENUNK [place] Insurance:SELF PAY [facility] Number: Effective Repository Date:2017-05-21 04/17/2017 JEAN PAUL E Primary JEAN PAUL E [facility] ZIMMERLYDOB: Insurance:MEDICARE ZIMMERLYDOB: [facility] [id number] PART [facility] Number: [id number] Repository [place] [id number] [address] [place] [facility] [place] [place] Date:2017-04-17 - [place] [address]Gks: 330 2638-36-33Oiiz 45[address]Gps: (HP) Name:[facility] [phone] Administrators LLCPO (HP)Tel: 000) [address]Vgkqrtrfc, [phone] (WP) [place] [address]PJ: 04/17/2017 [facility] Insurance:[facility]: [facility] Number: [id number] Repository [id number] [address] [place] Date:2017-04-17 - [place] 1595-03-90Fiti [address]Inf: (330) Name:[facility] [phone] JEWELS Back (HP)Tel: [phone]: (WP) [phone]
== END ==
PROVIDERS: Family Provider Family Medicine; PCP Family Medicine; Referring Provider Internal Medicine Pulmonary Disease; Visit Provider Internal Medicine Pulmonary Disease
DX: R91.1 Solitary pulmonary nodule (principal)
CPT/HCPCS: 71046

== ENCOUNTER 2018-03-03 13:31 | Outpatient (RCR) | payer MEDICARE, OTHER, SELFPAY ==
[2017-12-04 13:09] VITALS: BMI 30.4
[2018-02-26 14:16] LABS: International Normalized Ratio 3.3; Prothrombin Time (Protime)PT. 33.8 SECONDS (11.7-14.9)
[2018-03-03 15:58] LABS: Prothrombin Time (Protime)PT. 23.1 SECONDS (11.7-14.9)
== END 2018-03-03 14:00 | disposition home or self-care (01) ==
LOC: MTLAB 13:31
PROVIDERS: Family Provider Family Medicine; PCP Family Medicine; Referring Provider Family Medicine; Visit Provider Family Medicine
DX: Z79.01 Long term (current) use of anticoagulants (principal); Z79.899 Other long term (current) drug therapy
CPT/HCPCS: 36415; 85610

== ENCOUNTER → 2018-03-05 14:10 | Outpatient (CLI) | payer MEDICARE, OTHER, SELFPAY ==
[2018-03-05 13:19] VITALS: BMI 30.4
[2018-03-05 15:48] LABS: Basophil# 0.01 X10^3/uL; Basophil% 0.2 % (0-1); Eosinophil# 0.04 X10^3/uL; Eosinophils% 0.9 % (0-5); Hematocrit 34.4 % (37-47); Hemoglobin 11.5 g/dl (12.0-15.0); Lymphocyte % 23.9 % (19-41); Mean Corp Hgb Conc 33.4 g/gl (32-36); Mean Corpuscular Hgb 32.7 pg (27.0-32.0); Mean Corpuscular Volume 97.7 fL (81-99); Mean Platelet Vol. 10.1 fl (6.2-12.0); Monocyte# 0.42 X10^3/uL; Monocyte% 9.1 % (0-10); Neutrophil # 3.03 X10^3/uL (2.7-7.7); Neutrophil % 65.9 % (47-70); Platelet Count 148 K/mm3 (150-450); RBC Distribution Width CV 12.2 % (11.6-14.6); Red Blood Count 3.52 M/mm3 (4.2-5.4); White Blood Count 4.6 K/mm3 (4.4-11.0)
[2018-03-05 16:12] LABS: POSITIVE COUNT NO; POSITIVE DIFFERENTIAL NO; POSITIVE MORPHOLOGY NO
[2018-03-05 16:18] LABS: Thyroid Stim Hormone (TSH) 0.31 uIU/mL (0.358-3.74)
--- OUTSIDE RECORDS SUMMARY | 2018-04-21 19:01 | XMS RPT_ITS ---
:1940 Author Organization OHIP Support Name Relationship Address Phone R Unavailable Unavailable Unavailable ZIMMERLY, ROLANDO Unavailable [address] + [place] [address] R Unavailable Unavailable Unavailable ZIMMERLY, ROLANDO Unavailable [address] + [place] [address] R Unavailable Unavailable Unavailable ZIMMERLY, ROLANDO Unavailable [address] + [place] [address] R Unavailable Unavailable Unavailable ZIMMERLY, ROLANDO Unavailable [address] + [place] [address] R Unavailable Unavailable Unavailable ZIMMERLY, ROLANDO Unavailable [address] + [place] [address] R Unavailable Unavailable Unavailable ZIMMERLY, ROLANDO Unavailable [address] + [place] [address] R Unavailable Unavailable Unavailable ZIMMERLY, ROLANDO Unavailable [address] + [place] [address] R Unavailable Unavailable Unavailable ZIMMERLY, ROLANDO Unavailable [address] + [place] [address] R Unavailable Unavailable Unavailable ZIMMERLY, ROLANDO Unavailable [address] + [place] [address] R Unavailable Unavailable Unavailable ZIMMERLY, ROLANDO Unavailable [address] + [place] [address] ZIMMERLY, LUBA Unavailable [address] + [place] [address] ZIMMERLY, LUBA Unavailable [address] + [place] [address] ZIMMERLY, LUBA Unavailable [address] + [place] [address] ZIMMERLY, LUBA Unavailable [address] + [place] [address] R Unavailable Unavailable Unavailable ZIMMERLY, ROLANDO Unavailable [address] + [place] [address] R Unavailable Unavailable Unavailable ZIMMERLY, ROLANDO Unavailable [address] + [place] [address] R Unavailable Unavailable Unavailable ZIMMERLY, ROLANDO Unavailable [address] [phone] [place] [address] R Unavailable Unavailable Unavailable ZIMMERLY, ROLANDO Unavailable [address] + [place] [address] R Unavailable Unavailable Unavailable ZIMMERLY, ROLANDO Unavailable [address] [phone] [place] [address] R Unavailable Unavailable Unavailable ZIMMERLY, ROLANDO Unavailable [address] + [place] [address] R Unavailable Unavailable Unavailable ZIMMERLY, ROLANDO Unavailable [address] [phone] [place] [address] R Unavailable Unavailable Unavailable ZIMMERLY, ROLANDO Unavailable [address] [phone] [place] [address] R Unavailable Unavailable Unavailable ZIMMERLY, ROLANDO Unavailable [address] [phone] [place] [address] R Unavailable Unavailable Unavailable ZIMMERLY, ROLANDO Unavailable [address] [phone] [place] [address] R Unavailable Unavailable Unavailable ZIMMERLY, ROLANDO Unavailable [address] [phone] [place] [address] R Unavailable Unavailable Unavailable ZIMMERLY, ROLANDO Unavailable [address] [phone] [place] [address] R Unavailable Unavailable Unavailable ZIMMERLY, ROLANDO Unavailable [address] [phone] [place] [address] R Unavailable Unavailable Unavailable ZIMMERLY, ROLANDO Unavailable [address] [phone] [place] [address] R Unavailable Unavailable Unavailable ZIMMERLY, ROLANDO Unavailable [address] [phone] [place] [address] ZIMMERLY, LUBA Unavailable [address] + [place] [address] ZIMMERLY, LUBA Unavailable [address] + [place] [address] Care Team Providers Name Role Phone JAJA PHAN, Chely SANA Attending Unavailable BROWN, PATRICIA Primary Care Unavailable FISH BALTAZAR HENNESSYE Attending Unavailable BROWN, PATRICIA Primary Care Unavailable FISH BALTAZAR HENNESSYE Attending Unavailable BROWN, PATRICIA Primary Care Unavailable Brown, Patricia Attending Unavailable Brown, Patrciia Referring Unavailable Brown, Patricia Attending Unavailable Brown, Patricia Referring Unavailable Brown, Patricia Primary Care Unavailable Jonny Esteban Attending Unavailable Sibilia, Jonny Referring Unavailable Brown, Patricia Primary Care Unavailable Esequiel Ellis REEL HOOKER-C Attending Unavailable Brown, Patricia Referring Unavailable Brown, Patricia Attending Unavailable Brown, Patricia Referring Unavailable Brown, Patricia Primary Care Unavailable Brown, Patricia Attending Unavailable Brown, Patricia Referring Unavailable Brown, Patricia Primary Care Unavailable Esequiel Ellis REEL HOOKER-C Attending Unavailable Brown, Patricia Referring Unavailable Esequiel Ellis REEL HOOKER-C Attending Unavailable Brown, Patricia Primary Care Unavailable Esequiel Ellis REEL HOOKER-C Attending Unavailable Esequiel Ellis REEL HOOKER-C Referring Unavailable Brown, Patricia Primary Care Unavailable Brown, Patricia Attending Unavailable Brown, Patricia Referring Unavailable Brown, Patricia Primary Care Unavailable Esequiel Ellis REEL HOOKER-C Attending Unavailable EllisEsequiel REEL HOOKER-C Referring Unavailable Brown, Patricia Primary Care Unavailable Brown, Patricia Primary Care Unavailable Cirilo Sal Attending Unavailable Brown, Patricia Attending Unavailable Brown, Patricia Referring Unavailable Brown, Patricia Primary Care Unavailable Jonny Esteban Attending Unavailable Sibilia Jonny Referring Unavailable Brown, Patricia Primary Care [...] Referring Unavailable Brown, Patricia Primary Care Unavailable Jonny Esteban Attending Unavailable Lakisha Walker Referring Unavailable Patricia Mahan Primary Care Unavailable Sibilia, Jonny Attending Unavailable Sibilia, Jonny Referring Unavailable Negrito, Patricia Primary Care Unavailable Negrito, Patricia Attending Unavailable Negrito, Patricia Referring Unavailable Negrito, Patricia Primary Care Unavailable PROBLEMS PROBLEMS DATE TYPE CONDITION / CODE ATTENDING STATUS SOURCE 03/05/2018 Unknown E03.9 - Patricia Mahan Active [facility] Hypothyroidism, Community unspecified / Hospital E03.9(ICD-10) Repository 03/05/2018 Unknown R53.83 - Other Patricia Mahan Active [facility] fatigue / Community R53.83(ICD-10) Hospital Repository 03/05/2018 Unknown R29.898 - Other Patricia Mahan Active [facility] symptoms and signs Community involving the Hospital musculoskeletal Repository system / R29.898(ICD-10) 03/05/2018 Unknown 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 / Community L60.3(ICD-10) Hospital Repository 03/24/2018 Unknown Z79.01 - residential Patricia Mahan Active [facility] (current) use of Community anticoagulants / Hospital Z79.01(ICD-10) Repository 02/25/2018 Unknown Z79.899 - Other long Patricia Mahan Active [facility] term (current) drug Community therapy / Hospital Z79.899(ICD-10) Repository 12/04/2017 Unknown R55 - Syncope and Patricia Mahan Active [facility] collapse / Community R55(ICD-10) Hospital Repository 10/04/2017 Unknown S22.39XA - Fracture Timmy Portillo Active [facility] of one rib, Community unspecified side, Hospital initial encounter for Repository closed fracture / S22.39XA(ICD-10) 09/09/2017 Unknown R42 - Dizziness and Patricia Mahan Active [facility] giddiness / Community R42(ICD-10) Hospital Repository 05/24/2017 Unknown C85.90 - Non-Hodgkin EllisEsequiel Active [facility] lymphoma, REEL HOOKER-C Community unspecified, Hospital unspecified site / Repository C85.90(ICD-10) PROCEDURES PROCEDURES No Procedure Records FoundRESULTS RESULTS PROTHROMBIN TIME W/INR Collected: 04/15/2018 Status: F Source: [place] 2:40 PM [facility] REPOSITORY Order Comment: Comments: to be done weekly Comments: to be done weekly TYPE CODE TESTS RESULT OUT OF RANGE REFERENCE UNITS LAB L300.4150 11.7-14.9 SECONDS Normal PROTIME 14.9 LAB L300.4200 Normal INR 1.2 Performed By: #### L300.3900 #### [facility] [address] [place], [address] PT D/C SUMMARY (1) Observed: 04/11/2018 Status: F Source: [place] 9:28 AM [facility] REPOSITORY [facility] [address] [place] [address]. [address] [place] [address] / REHABILITATION SERVICES DISCHARGE SUMMARY MR#: [id number] Acct: [id number] Name: JEAN PAUL LICEA Rep #: [id number] : 1940 77 From: Félix Sawyer PT, Cert. MDT, OCS Referring Dr.: Patricia Mahan DO Status: REG RCR Insurance: MEDICARE PART A B [employer] - PT D/C Summary It has been my pleasure to treat JEAN PAUL LICEA under orders from Patricia Mahan DO, for the diagnosis of OTHER SYMPTOMS AND SIGNS INVOLVING THE MUSCULOSKELETAL SYSTEM for a total of 9 visit(s). Discharge Date: 04/09/18 Please see the following information for a summary of their discharge status. - Subjective Subjective: Doing okay ,,patient reports no falls. Plan for heart monitor to deternine if I need pacemaker - Pain Bilateral Back Pain Intensity (Out of 10): 3 - Overall Improvement % Improvement: 50 - Objective Objective/Function: POSTURE:mild foward mild knee valgus. GAIT: mild foward posture knee valgus reciprocal antalgic. MMT: quads/hams 4-/5,hip flexion 4-/5,hip abd 3+/5,ankle 4/5. BALANCE: fair with fww - Goals Goal 1:: Patient to be Independant with HEP Goal Progress: Goal Met Goal 2:: Patient to be Independant with posture/body mechanics Goal Progress: Goal Met Goal 3:: Patient to improve BLE by 1/2 grade to inmprove function Goal Progress: Progressing Goal 4:: Patient to improve CATSIB score b7 10 points to improve gait Goal Progress: Goal Met Goal 5:: Patient to improve functional gait assessment score by 10 points to improve gait Goal Progress: Progressing - Plan Plan: D/C - D/C Information Discharge Comments: HEP If there are questions or concerns regarding this patient's physical therapy, please feel free to call me at [phone]. Thank you for the referral of this patient. Sincerely, Félix Sawyer PT, Cert MDT, OCS <Electronically signed by Félix Sawyer PT, Cert. MDT, OCS> 04/11/18 0928 CC: Patricia Mahan DO KATHE Signed PROTHROMBIN TIME W/INR Collected: 04/07/2018 Status: F Source: [place] 1:44 PM [facility] REPOSITORY TYPE CODE TESTS RESULT OUT OF RANGE REFERENCE UNITS LAB L300.4150 11.7-14.9 SECONDS High PROTIME 16.9 LAB L300.4200 Normal INR 1.4 Performed By: #### L300.3900 #### [facility] [address] [place], [address] PROTHROMBIN TIME W/INR Collected: 04/02/2018 Status: F Source: [place] 1:41 PM [facility] REPOSITORY TYPE CODE TESTS RESULT OUT OF REFERENCE UNITS RANGE LAB L300.4150 11.7-14.9 SECONDS High PROTIME 38.9 LAB L300.4200 High alert INR 4.0 Result Comment: CRITICAL VALUE VERIFIED. CALLED TO DR MAHAN 04/02/18 180[facility] [place]. RESULTS READ BACK BY DR MAHAN . Performed By: #### L300.3900 #### [facility] [address] [place], [address] INITAL EVALUATION (1) Observed: 03/13/2018 Status: F Source: [place] - PT 1:54 PM [facility] REPOSITORY [facility] [address] [place], [place] [address] Fax REHABILITATION SERVICES INITIAL EVALUATION MR#: [id number] Acct: [id number] Name: JEAN PAUL LICEA Rep #: [id number] : 1940 77 From: Félix Sawyer PT, Cert. MDT, OCS Referring Dr.: Patricia Mahan DO Status: REG RCR Insurance: MEDICARE PART A B [facility] [employer] [facility] Patient's Visit Information JEAN PAUL LICEA is a 77 year old F referred to Physical Therapy by Patricia Mahan DO with a diagnosis of OTHER SYMPTOMS AND SIGNS INVOLVING THE MUSCULOSKELETAL SYSTEM. Date of Evaluation: 03/12/18 Physical Therapist: Félix Sawyer PT, Cert MDT, OCS - Visit Plan Frequency: 2x /Week Duration: 4 Weeks Plan: gait training ,balance training,strengthening LE,general condtion - Subjective Findings: This 77 y/o female presenst to physical therapy with difficulty with gait. Patient has been experiencing weakness in leg thus impairs gait . Patient has fallen at home. Patient seen MD recommended PT. Patient has multiple comorbities infleunce condtion.Patient had food surgery with achilles lengthening ,and surgery to support arch 1994. Patient uses cane for gait. Patient has h/o hodkins lymphoma. Patient c/o parathesia in hands.Patient has some dizziness. Patient lives [address] [facility] with stair lift. SOCAIL: lives with brother. VOACTION : RETIRED - Pain Bilateral Back Pain Intensity (Out of 10): 4 Pain Intensity Range: 10 - Objective POSTURE: mild foward posture trunk flexed foward ,ER right leg. NEURO: denies parathesia /tingling ,reflexes 1/3. GAIT: foward trunk ,slow burke unstaedy Right leg ER poor stance time ,shuffle steps. BALANCE: fair with cane. AROM: hip 95 degrees,knee 5-110 degrees. MMT: quads/hams 4-/5,hip flexion 3+/5 ,hip abd 3/5,ankle 4-/5 - Balance Scores Functional Gait Assessment Score: 2 % Disability: 93.3400 CATSIB Score (Max score 120 seconds): 10 - Goals Goal 1:: Patient to be Independant with HEP Goal Time Frame: 4-6 Weeks Goal 2:: Patient to be Independant with posture/body mechanics Goal Time Frame: 4-6 Weeks Goal 3:: Patient to improve BLE by 1/2 grade to inmprove function Goal Time Frame: 4-6 Weeks Goal 4:: Patient to improve CATSIB score b7 10 points to improve gait Goal Time Frame: 4-6 Weeks Goal 5:: Patient to improve functional gait assessment score by 10 points to improve gait Goal Time Frame: 4-6 Weeks - Rehabilitation Potential Physical Therapy Diagnosis: This patient has multile complexity issue along with weakness ,gait impairments and balance deficits thus benifit from skilled PT,did recommend rollator for walking safety Rehabilitation Potential: Fair - Anticipated Interventions Patient/Client Instruction: Educate patient on: Condition For the Purpose of:: To increase ROM, To improve muscle performance and motor function, To improve ability to perform ADL's, To increase tolerance to activity/condition/position, To improve ability of physical actions for home/community/work/leisure, To improve health of tissue, To decrease soft tissue restriction, To improve endurance, To improve balance, To improve safety with gait, To improve ability to perform tasks related to life management Therapeutic Exercise to Include: Strength training, Endurance training, Balance training, Gait and locomotor training For the Purpose of:: To improve muscle performance and motor function, To improve ability to perform ADL's, To increase tolerance to activity/condition/position, To improve ability of physical actions for home/community/work/leisure, To improve gait and locomotor functions, To increase flexibility/ROM, To improve endurance, To improve balance, To improve safety with gait, To assume or resume ADL's, To improve ability to perform tasks related to life management Thank you for the opportunity to evaluate your patient. For Medicare and Medicare HMO plans, please review the plan of care and approve it. It will need to be FAXED BACK to us at [phone] for Medicare purposes. For Medicare only, by signing this I certify the plan of care. Please let me know if there are questions or concerns regarding this plan of care. Physician Signature: Date: <Electronically signed by Félix Sawyer PT, Cert. T, OCS> 03/13/18 1354 CC: Patricia Mahan DO KATHE Signed INTERNAL MEDICINE Observed: 03/05/2018 Status: F Source: [place] OFFICE VISIT 2:23 PM [facility] [address] [place] [address] [place] [address] OFFICE VISIT Date of Service: 03/05/18 MR#: [id number] Acct: [id number] Name: JEAN PAUL LICEA Rep #: [id number] : 1940 Provider: Patricia Mahan DO Age/Sex: 77/F Location: [facility] Status: Signed Intake Vital Signs03/05/18 Height 5 [...] mcg PO DAILY 06/20/16 [History Confirmed 03/05/18] Macon-3 Fatty Acids/Fish Oil [Macon 3 1,000 mg Softgel] 1 ea PO [...] MOWEFR #14 tab 02/11/18 [Rx Confirmed 03/05/18] PFSH Medical History History of pneumonia (Acute) [...] are going to have her see a methodologist to deal with the dystrophic nails on [...] signed by Patricia Mahan DO> Date Patricia Briggs Signature: Date (if applicable) CC: CBC W/DIFF, AUTOMATED Collected: 03/05/2018 Status: F Source: [place] 2:15 PM [facility] REPOSITORY TYPE CODE TESTS RESULT OUT OF [...] Lymph 1.10 Performed By: #### L100.0100 #### [facility] [address] [place], [place], [address] THYROID STIM HORMONE Collected: 03/05/2018 Status: F Source: [place] (TSH) 2:15 PM [facility] REPOSITORY TYPE CODE TESTS RESULT OUT OF RANGE REFERENCE UNITS LAB L501.9520 0.358-3.74 uIU/mL Low TSH 0.31 Performed By: #### L501.9520, L506.0400 #### [facility] [address] [place], [address] T4 FREE DIRECT Collected: 03/05/2018 Status: F Source: [place] 2:15 PM [facility] REPOSITORY TYPE CODE TESTS RESULT OUT OF REFERENCE UNITS RANGE LAB L506.0400 0.76-1.46 ng/dL High T4 FREE 1.70 DIRECT Performed By: #### L501.9520, L506.0400 #### [facility] [address] [place], [address] PROTHROMBIN TIME W/INR Collected: 03/03/2018 Status: F Source: [place] 1:37 PM [facility] REPOSITORY TYPE CODE TESTS RESULT OUT OF RANGE REFERENCE UNITS LAB L300.4150 11.7-14.9 SECONDS High PROTIME 23.1 LAB L300.4200 Normal INR 2.0 Performed By: #### L300.3900 #### [facility] [address] [place], [address] PROTHROMBIN TIME W/INR Collected: 02/26/2018 Status: F Source: [place] 1:27 PM [facility] REPOSITORY TYPE CODE TESTS RESULT OUT OF RANGE REFERENCE UNITS LAB L300.4150 11.7-14.9 SECONDS High PROTIME 33.8 LAB L300.4200 Normal INR 3.3 Performed By: #### L300.3900 #### [facility] [address] [place], [address] CHEST PA AND LATERAL Observed: 02/17/2018 Status: F Source: [place] 3:13 PM [facility] REPOSITORY [facility] Imaging Services [address] [place] [address] Chest PA and Lateral MR#: [id number] Acct: [id number] Name: JEAN PAUL ILCEA Rep #: [id number] : 1940 F 77 From: Morris Robin MD PCP: Patricia Mahan DO Status: REG CLI Study: Chest PA and Lateral Date of Exam: 02/17/18 Exam# [id number] Ordering Dr: Jonny Esteban MD STUDY: X-RAY [...] CC: Patricia Mahan DO; Jonny Esteban MD Correctional Casework Specialist: Signed PROTHROMBIN TIME W/INR Collected: 02/14/2018 Status: F Source: [place] 1:44 PM [facility] REPOSITORY TYPE CODE TESTS RESULT OUT OF RANGE REFERENCE UNITS LAB L300.4150 11.7-14.9 SECONDS High PROTIME 34.9 LAB L300.4200 Normal INR 3.4 Performed By: #### L300.3900 #### [facility] [address] [place], [address] PROTHROMBIN TIME W/INR Collected: 02/03/2018 Status: F Source: [place] 2:25 PM [facility] REPOSITORY TYPE CODE TESTS RESULT OUT OF RANGE REFERENCE UNITS LAB L300.4150 11.7-14.9 SECONDS High PROTIME 19.2 LAB L300.4200 Normal INR 1.6 Performed By: #### L300.3900 #### [facility] [address] [place], [address] PROTHROMBIN TIME W/INR Collected: 01/03/2018 Status: F Source: [place] 3:30 PM [facility] REPOSITORY Order Comment: Comments: Standing order --to be done monthly DR. MAHAN ORDERED PT DR. ESTEBAN ORDERED BTNP,SED Comments: Standing order --to be done monthly TYPE CODE TESTS RESULT OUT OF RANGE REFERENCE UNITS LAB L300.4150 11.7-14.9 SECONDS High PROTIME 28.5 LAB L300.4200 Normal INR 2.7 Performed By: #### L300.3900 #### [facility] [address] [place], [address] ERYTHROCYTE SED RATE Collected: 01/03/2018 Status: F Source: [place] 3:30 PM [facility] REPOSITORY Order Comment: DR. MAHAN ORDERED PT DR. ESTEBAN ORDERED BTNP,SED TYPE CODE TESTS RESULT OUT OF RANGE REFERENCE UNITS LAB L102.0000 0-30 mm/hr Normal SED RATE 4 Performed By: #### L101.9900 #### [facility] [address] [place], [place], [address] BNP,B-TYPE NATRIURETIC Collected: 01/03/2018 Status: F Source: [place] 3:30 PM [facility] REPOSITORY Order Comment: DR. MAHAN ORDERED PT DR. ESTEBAN ORDERED BTNP,SED TYPE CODE TESTS RESULT OUT OF RANGE REFERENCE UNITS LAB L503.6620 0-100 pg/mL High B-TYPE 112.6 ZAKI PEP Performed By: #### L503.6620 #### [facility] [address] [place], [address] INTERNAL MEDICINE Observed: 12/04/2017 Status: F Source: [place] OFFICE VISIT 2:20 PM [facility] REPOSITORY [facility] [address] [place] [address] OFFICE VISIT Date of Service: 12/04/17 MR#: [id number] Acct: [id number] Name: JEAN PAUL LICEA Rep #: [id number] : 1940 Provider: Patricia Mahan DO Age/Sex: 77/F Location: [facility] Status: Signed Intake Vital Signs12/04/17 Height 5 [...] mcg PO DAILY 06/20/16 [History Confirmed 08/19/17] Macon-3 Fatty Acids/Fish Oil [Macon 3 1,000 mg Softgel] 1 ea PO DAILY 06/20/16 [History Confirmed 08/19/17] Vitamin E (Dl,Tocopheryl Acet) [E-200] 200 unit PO DAILY 03/29/17 [History Confirmed 08/19/17] Multivitamin [Multiple Vitamins] 1 [...] mg PO DAILY 12/04/17 [History Confirmed 12/04/17] [facility] Medical History History of pneumonia (Acute) [...] History of non-Hodgkin's lymphoma Z85.72 4. Arthritis M19. 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 Syncopal episodes R55 Patient Instructions This patient is here for regular checkup. Since I last have seen her she is gone through her 30 day cardiac exercise physiologist. 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, [address] Observed: 11/18/2017 Status: F Source: [facility] 12:16 PM [facility] REPOSITORY . MICRO - Microbiology PROCEDURE: Urine [...] Locations *1: This test was performed at: [facility], [address] [place] [address], [address] Performed By: #### CUR #### [address] [address] UA Collected: 11/18/2017 Status: F Source: [facility] 12:15 PM [facility] REPOSITORY TYPE CODE TESTS RESULT OUT [...] UA Leuk Est Negative Performed By: #### UA, UAMICAO #### [place] [address] [place] [address] .URINALYSIS MICROSCOPIC Collected: 11/18/2017 Status: F Source: [facility] [employer] 12:15 [facility] REPOSITORY TYPE CODE TESTS RESULT OUT OF REFERENCE UNITS RANGE LAB WBCUA(LOIN None Seen /hpf C) UA WBC None Seen LAB RBCUA(LOIN None Seen /hpf C) UA RBC None Seen LAB EPIUA(LOIN None Seen /hpf C) UA Squam Epithelial None Seen Performed By: #### UA, UAMICAO #### [place] [address] BMP Collected: 11/18/2017 Status: F Source: [facility] 12:15 [facility] REPOSITORY TYPE CODE TESTS RESULT [...] mg/dL Calcium Lvl 9.4 Performed By: #### BMP, GFR #### [address] [address] .GFR Collected: 11/18/2017 Status: F Source: [facility] 12:15 PM [facility] REPOSITORY TYPE CODE TESTS RESULT OUT OF REFERENCE UNITS RANGE LAB GFRAA(LOINC ml/min/1.73 ) sqm GFR 53 [place] Result Comment: GFR Population mean for , [...] 15 mL/min/1.73 square meters Performed By: #### BMP, GFR #### [address] [address] EMERGENCY DEPARTMENT Observed: 10/05/2017 Status: F Source: [place] SUMMARY 12:49 AM [facility] REPOSITORY [facility] Medical Records Department [address] [place] [address] Emergency Department Summary 10/04/17 1825 MR#: [id number] Acct: [id number] Name: JEAN PAUL LICEA Rep #: [id number] : 1940 77 From: Timmy Portillo MD PCP: Patricia Mahan, DO Status: DEP ER - ER Visit [...] Treatment Plan: Patient will be discharged with [place] and Colace. She reports that Konstantin has an incentive spirometer at home. Instructed to follow-up Dr. Patricia Mahan in 1 week if not improving. Return to the emergency department for any worsening symptoms. Disposition: To home in improved and stable condition. Impression: 1. Rib fractures on right. This note was generated with EMBA Medical dictation software. It may contain incorrect words, [...] 100 mg PO DAILY #20 capsule Hydrocodone/Acetaminophen [[place] 5-325 Tablet] 1 - 2 each PO 4X/DAY PRN PRN 5 Days #20 tablet PRN Reason: Pain Referrals: Patricia Mahan DO [Primary Care Provider] - 1 Week if not improving What to do if you have Problems For any increased pain, shortness of breath, bleeding, nausea or vomiting, chest pain, or any unexpected problems, contact your Primary Care Provider. Call [facility] ([phone]) or report to the closest Emergency Room. Call 911 if necessary. 10/05/17 0049 <Electronically signed by Timmy Portillo MD> Date Timmy Portillo MD Cosigner Signature (If Indicated): Date CC: Patricia Mahan DO URINALYSIS, COMPLETE Collected: 10/04/2017 Status: F Source: [place] 5:34 PM [facility] REPOSITORY Order Comment: Order Date: 10/04/17 Has [...] URINE SEEN Performed By: #### L400.0001 #### [facility] [address] [place], [address] CBC W/DIFF, AUTOMATED Collected: 10/04/2017 Status: F Source: [place] 4:24 PM [facility] REPOSITORY TYPE CODE TESTS RESULT OUT OF [...] Lymph 1.42 Performed By: #### L100.0100 #### [facility] [address] [place], [address] BASIC METABOLIC Collected: 10/04/2017 Status: F Source: [place] PROFILE ([facility]) 4:24 PM [facility] REPOSITORY TYPE CODE TESTS RESULT OUT OF [...] 7 Performed By: #### L500.2500, L500.3400 #### [facility] [address] [facility], [address] LIVER PROFILE Collected: 10/04/2017 Status: F Source: [place] 4:24 PM [facility] REPOSITORY TYPE CODE TESTS RESULT OUT OF [...] 0.25 Performed By: #### L500.2500, L500.3400 #### [facility] [address] [place], [address] CHEST PA AND LATERAL Observed: 10/04/2017 Status: F Source: [place] 4:05 PM [facility] REPOSITORY [facility] Imaging Services [address] [place] [address] Chest PA and Lateral MR#: [id number] Acct: [id number] Name: VINAYAKJEAN PAUL E Rep #: [id number] : 1940 F 77 From: Lobo Teixeira MD PCP: Patricia Mahan DO Status: REG ER Study: Chest PA and Lateral Date of Exam: 10/04/17 Exam# [id number] Ordering Dr: Timmy Portillo MD STUDY: X-RAY [...] CC: Patricia Mahan DO; Timmy Portillo MD Correctional Casework Specialist: Signed PROTHROMBIN TIME W/INR Collected: 09/12/2017 Status: F Source: [place] 3:55 PM [facility] REPOSITORY TYPE CODE TESTS RESULT OUT OF RANGE REFERENCE UNITS LAB L300.4150 11.7-14.9 SECONDS High PROTIME 19.8 LAB L300.4200 Normal INR 1.7 Performed By: #### L300.3900 #### [facility] [address] [facility], [address] DOWNTIME REPORT Observed: 09/12/2017 Status: F Source: [place] 12:36 PM [facility] REPOSITORY [facility] Medical Records Department [address] [place] [address] Downtime Report MR#: [id number] Acct: [id number] Name: JEAN PAUL LICEA Lynnette Rep #: [id number] : 1940 76 From: Rush Huynh PCP: Patricia Brown, DO Status: REG CLI This patient was seen during an EMR downtime August 26, 2017 - September 02, 2017. This patient may have a combination of paper and electronic documentation or all paper documentation. All documentation is viewable within the e-chart portion of A4 Data for each patient visit. CHEST WITHOUT Observed: 09/04/2017 Status: F Source: [place] CONTRAST 1:33 PM [facility] REPOSITORY [facility] Imaging Services [address] [place] [address] Chest without Contrast MR#: [id number] Acct: [id number] Name: JEAN PAUL LICEA Rep #: [id number] : 1940 F 76 From: Morris Robin MD PCP: Patricia Mahan DO Status: REG CLI Study: Chest without Contrast Date of Exam: 09/04/17 Exam# [id number] Ordering Dr: Jonny Esteban MD STUDY: CT [...] CC: Patricia Mahan DO; Jonny Esteban MD Correctional Casework Specialist: Signed CBC-COMPLETE BLOOD CNT Collected: 08/28/2017 Status: F Source: [place] NO DIFF 10:00 AM [facility] REPOSITORY TYPE CODE TESTS RESULT OUT OF [...] MPV 10.7 Performed By: #### L100.0500 #### [facility] [address] [facility] [place], [place], [address] THYROID STIM HORMONE Collected: 08/28/2017 Status: F Source: [place] (TSH) 10:00 AM [facility] REPOSITORY Order Comment: Has Patient had X-rays with Contrast this admission? N TYPE CODE TESTS RESULT OUT OF RANGE REFERENCE UNITS LAB L501.9520 0.358-3.74 uIU/mL Normal TSH 0.43 Performed By: #### L501.9520, L506.0400 #### [facility] [address] [place], [place], [address] T4 FREE DIRECT Collected: 08/28/2017 Status: F Source: [place] 10:00 AM [facility] REPOSITORY Order Comment: Has Patient had X-rays with Contrast this admission? N TYPE CODE TESTS RESULT OUT OF REFERENCE UNITS RANGE LAB L506.0400 0.76-1.46 ng/dL High T4 FREE 1.71 DIRECT Performed By: #### L501.9520, L506.0400 #### [facility] [address] [place], [address] EMERGENCY DEPARTMENT Observed: 08/19/2017 Status: F Source: [place] SUMMARY 8:28 PM [facility] REPOSITORY [facility] Medical Records Department [address] [place] [address] Emergency Department Summary 08/19/172022 MR#: [id number] Acct: [id number] Name: JEAN PAUL LICEA Rep #: [id number] : 1940 76 From: Cirilo Sal MD PCP: Patricia Mahan, DO Status: REG ER - ER Visit [...] rate control This note was generated with EMBA Medical dictation software. It may contain incorrect words, [...] your Primary Care Provider. Call [facility] ([phone]) or report to the closest Emergency Room. Call 911 if necessary. 08/19/172027 <Electronically signed by Cirilo Sal MD> Date Cirilo Sal MD Cosigner Signature (If Indicated): Date CC: Patricia Mahan DO CBC-COMPLETE BLOOD CNT Collected: 08/19/2017 Status: F Source: [place] NO DIFF 7:20 PM [facility] REPOSITORY TYPE CODE TESTS RESULT OUT OF [...] MPV 9.7 Performed By: #### L100.0500 #### [facility] [address] [facility], [address] BASIC METABOLIC Collected: 08/19/2017 Status: F Source: [place] PROFILE (BMP) 7:20 PM [facility] REPOSITORY TYPE CODE TESTS RESULT OUT OF [...] 8 Performed By: #### L500.2500, L501.4010 #### [facility] [address] [facility] [place], [address] TROPONIN-I Collected: 08/19/2017 Status: F Source: [place] 7:20 PM [facility] REPOSITORY TYPE CODE TESTS RESULT OUT OF RANGE REFERENCE UNITS LAB L501.4010 <0.045 ng/mL Normal < 0.015 TROPONIN-I Result Comment: TROPONIN-I EXPECTED VALUES <0.045 Negative 0.045 - 0.590 Consistent with Cardiac Damage > OR = 0.600 Critical Value Not every elevated troponin is indicative of PR. These values should be used with clinical judgement in examining the patient's clinical picture for diagnosis. To establish a diagnosis of PR versus myocardial injury, there must be a demonstrated rise and/or fall in the troponin values, in addition to ischemic symptoms, EKG changes, new regional wall motion abnormality, and/or angiographical evidence. PLEASE NOTE: REFERENCE RANGES EDITED 17 Performed By: #### L500.2500, L501.4010 #### [facility] [address] [place], [address] INTERNAL MEDICINE Observed: 07/16/2017 Status: F Source: [place] OFFICE VISIT 5:34 PM [facility] REPOSITORY [facility] [address] [place] [address] [place] [address] OFFICE VISIT Date of Service: 07/16/17 MR#: [id number] Acct: [id number] Name: BARBIESIMAMAKENNAJEAN PAUL Lynnette Rep #: [id number] : 1940 Provider: Patricia Mahan DO Age/Sex: 76/F Location: [facility] Status: Signed Intake Vital Signs07/16/17 Height 4 [...] mg PO DAILY 06/20/16 [History Confirmed 07/16/17] Macon-3 Fatty Acids/Fish Oil [Macon 3 1,000 mg Softgel] 1 ea PO [...] PO QDAY PRN 07/16/17 [History Confirmed 07/16/17] [facility] Medical History History of pneumonia (Acute) [...] of non-Hodgkin's lymphoma Z85.72 Arthritis M19.90 07/16/17 7068 <Electronically signed by Patricia R Brown DO> Date Patricia Mahan DO Trav Signature: Date (if applicable) CC: PROTHROMBIN TIME W/INR Collected: 06/25/2017 Status: F Source: [place] 2:07 PM [facility] REPOSITORY TYPE CODE TESTS RESULT OUT OF RANGE REFERENCE UNITS LAB L300.4150 11.7-14.9 SECONDS High PROTIME 21.0 LAB L300.4200 Normal INR 1.8 Performed By: #### L300.3900 #### [facility] [address] [place], [address] INTERNAL MEDICINE Observed: 05/24/2017 Status: F Source: [place] OFFICE VISIT 3:37 PM [facility] REPOSITORY [facility] [address] [place] [address] OFFICE VISIT Date of Service: 05/24/17 MR#: [id number] Acct: [id number] Name: JEAN PAUL LICEA Rep #: [id number] : 1940 Provider: Esequiel Ellis NP Age/Sex: 76/F Location: [facility] Status: Signed Intake Vital Signs05/24/17 Height 4 [...] mg PO DAILY 06/20/16 [History Confirmed 07/17/16] Macon-3 Fatty Acids/Fish Oil [Macon 3 1,000 mg Softgel] 1 ea PO [...] mg PO QDAY 05/24/17 [History Confirmed 05/24/17] [facility] Medical History Non Hodgkin's lymphoma (Acute) Arthritis (Chronic) Chronic pain (Chronic) History of blood clots (Acute) Hypertension (Chronic) Hypothyroidism (Chronic) Sleep apnea (Chronic) Social History Smoking Status: Never smoker HPI HPI Chief Complaint: Needs INR order Details: JEAN [...] oriented x3 Limitations: mental status not altered [facility] Head: normal to inspection Mouth: oral mucosa [...] 05/24/2017 Status: F Source: [place] 12:21 PM [facility] REPOSITORY Order Comment: Comments: Standing order Comments: Standing order TYPE CODE TESTS RESULT OUT OF RANGE REFERENCE UNITS LAB L300.4150 11.7-14.9 SECONDS High PROTIME 27.1 LAB L300.4200 Normal INR 2.5 Performed By: #### L300.3900 #### [facility] [address] [place], [place], [address] BNP,B-TYPE NATRIURETIC Collected: 05/21/2017 Status: F Source: [place] PEPTIDE 12:55 PM [facility] REPOSITORY TYPE CODE TESTS RESULT OUT OF RANGE REFERENCE UNITS LAB L503.6620 0-100 pg/mL High B-TYPE 247.3 ZAKI PEP Performed By: #### L503.6620 #### [facility] [address] [place], [address] ERYTHROCYTE SED RATE Collected: 05/21/2017 Status: F Source: [place] 12:55 PM [facility] REPOSITORY TYPE CODE TESTS RESULT OUT OF RANGE REFERENCE UNITS LAB L102.0000 0-30 mm/hr Normal SED RATE 3 Performed By: #### L101.9900 #### [facility] [address] [place], [address] XR CHEST 2 VIEWS Observed: 04/17/2017 Status: F Source: [facility] 10:58 AM [facility] REPOSITORY ORIGINAL XR CHEST [...] SEVERITY SOURCE 03/05/2018 Drug gentamicin/F Unknown Unknown [facility] Allergy/4160 [id number](RX [facility] [address](SNOMED NORM) Repository CT) ENCOUNTERS ENCOUNTERS ADMIT/DISCHARGE ACCOUNT NUMBER ADMITTING ENCOUNTER LOCATION SOURCE CLASS 04/15/2018 [id number] Ambulatory [facility] ding:MTLAB Repository 04/09/2018 [id number] Ambulatory [facility] ding:PT Repository 03/05/2018 [id number] Ambulatory [facility] ding:MTLAB Repository 03/05/2018/03/05/20 [id number] Ambulatory BMSBuilding: [place] 18 BMS.[facility] Repository 03/03/2018/03/03/20 [id number] Ambulatory [place] 18 [facility] Hospital ding:MTLAB Repository 02/17/2018 [id number] [facility] [place] [facility] ding[facility] Repository 02/14/2018/02/15/20 [id number] [place] [address] [place] [address] Hospital ding:MTLAB Repository 01/03/2018 [id number] [facility] [place] [facility] ding[facility] Repository 12/04/2017/12/05/19 [id number] Ambulatory BMSBuilding: [place] 18 [facility] Repository 11/26/2017/11/27/19 [id number] Amb[place] [address] [place] [address] Hospital ding:MTLAB Repository 11/18/2017/11/19/19 [id number] Ambulatory [address] ding:[facility]AB [facility] Repository 10/24/2017/10/25/19 [id number] Ambulatory [address] ding:RAD [facility] Repository 10/04/2017/10/05/19 [id number] Emergency [place] [address] [place] [address] Hospital ding:ED Repository 09/12/2017 [id number] [facility] Repository 09/09/2017 [id number] [facility]PSN Repository 09/09/2017 [id number] Ambulatory [facility]: [place] [facility] Hospital Repository 09/04/2017 [id number] [facility] [place] [facility] ding[facility]CT Repository 08/28/2017 [id number] [facility] [place] [facility] ding:MTLAB Repository 08/28/2017/08/29/19 [id number] Ambulatory BMSBuilding: [place] 18 [facility] Hospital Repository 08/19/2017/08/20/19 [id number] Emergency [place] [address] [place] [address] Hospital ding:ED Repository 07/23/2017 [id number] [facility] [place] [facility] ding:MTLAB Repository 07/16/2017/07/17/19 [id number] Ambulatory BMSBuilding: [place] 18 BMS.[facility] Repository 06/25/2017/07/24/19 [id number] Ambulatory [place] [address] [place] [address] ding:MTLAB Repository 05/24/2017 [id number] Ambulatory [place] [facility] ding:MTLAB Repository 05/24/2017/05/25/19 [id number] Ambulatory BMSBuilding: [place] 18 BMS.[facility] Repository 05/23/2017 [id number] Ambulatory BMSBuilding: [place] BMS.[facility] Repository 05/21/2017 [id number] Ambulatory [facility] ding:MTLAB Repository 04/17/2017/04/17/19 [id number] Ambulatory [address] ding:[facility] Repository PAYERS PAYERS ENCOUNTER GUARANTOR PAYER SUBSCRIBER SOURCE 04/15/2018 JEAN PAUL E Primary JEAN PAUL E [place] [id number] Insurance:MEDICARE ZIMMERLYDOB: [facility] [id number] Number: Repository [address]Jow: 330 [id number] [phone] () Date:2017-11-26 04/15/2018 Secondary JEAN PAUL E [place] Insurance:EVERENCE ZIMMERLYDOB: [facility] [id number] Hospital Number: Repository [id number] Date:[id number] [address]ON: 04/15/2018 Tertiary NOT GIVENUNK [place] Insurance:SELF PAY [facility] Number: Effective Repository Date:2018-03-24 04/09/2018 JEAN PAUL E Primary JEAN PAUL E [place] [id number] Insurance:MEDICARE ZIMMERLYDOB: [facility] [id number] Number: Repository [address]Bnz: 330 [id number] [phone] (HP) Date:1995-05-24 04/09/2018 Secondary JEAN PAUL E [place] Insurance:EVERENCE ZIMMERLYDOB: [facility] [id number] Hospital Number: Repository [id number] Date:[id number] [place] [address]PJ: 04/09/2018 Tertiary NOT GIVENUNK [place] Insurance:SELF PAY [facility] Number: Effective Repository Date:2018-03-06 03/05/2018 JEAN PAUL E Primary JEAN PAUL E [place] [id number] Insurance:MEDICARE ZIMMERLYDOB: [facility] [place] PART A [facility] [id number] [place] Number: Repository [id number]: 330 [id number] [phone] () Date:2018-03-05 03/05/2018 Secondary JEAN PAUL E [place] Insurance:EVERENCE ZIMMERLYDOB: [facility] [id number] Hospital Number: Repository [id number] Date:[id number] [address]CB: 03/05/2018 Tertiary NOT GIVENUNK [place] Insurance:SELF PAY [facility] Hospital Number: Effective Repository Date:2018-03-05 03/05/2018 JEAN PAUL E Primary JEAN PAUL E [place] [id number] Insurance:MEDICARE ZIMMERLYDOB: [facility] [place] PART A [facility] [id number] [facility] Health [place] Number: Repository [id number]: 330 [id number] [phone] () Date:2017-12-04 03/05/2018 Secondary JEAN PAUL E [place] Insurance:EVERENCE ZIMMERLYDOB: [facility] [id number] Hospital Number: Repository [id number] Date:0556-83-80YL[address] [address]XV: 03/05/2018 Tertiary NOT GIVENUNK [place] Insurance:SELF PAY [facility] Hospital Number: Effective Repository Date:2018-03-05 03/03/2018 JEAN PAUL E Primary JEAN PAUL E [place] [id number] Insurance:MEDICARE ZIMMERLYDOB: Community [place] PART A [facility] [id number] River Health [place] Number: Repository [id number]: 330 [id number] [phone] () Date:2017-11-26 03/03/2018 Secondary JEAN PAUL E [place] Insurance:EVERENCE ZIMMERLYDOB: [facility] [id number] Hospital Number: Repository [id number] Date:[id number] [address] [place] [address]YE: 03/03/2018 Tertiary NOT GIVENUNK [place] Insurance:SELF PAY [facility] Hospital Number: Effective Repository Date:2018-02-25 02/17/2018 JEAN PAUL E Primary JEAN PAUL E [place] [id number] Insurance:MEDICARE [facility] [id number] River Health [place] Number: Repository [id number]: (330 [id number] [phone] () Date:2018-02-17 02/17/2018 Secondary JEAN PAUL E [place] Insurance:EVERENCE ZIMMERLYDOB: [facility] [id number] Hospital Number: Repository [id number] Date:6552-93-72[address] [place] [address]NK: 02/17/2018 Tertiary NOT GIVENUNK [place] Insurance:SELF PAY [facility] Hospital Number: Effective Repository Date:2018-02-17 02/14/2018 JEAN PAUL E Primary JEAN PAUL E [place] [id number] Insurance:MEDICARE ZIMMERLYDOB: [facility] [id number] River Health [place] Number: Repository [address]Mpo: 330 [id number] [phone] () Date:2017-11-26 02/14/2018 Secondary JEAN PAUL E [place] Insurance:EVERENCE ZIMMERLYDOB: [facility] [id number] Hospital Number: Repository [id number] Date:7995-98-67IO [address] [place] [address]CJ: 02/14/2018 Tertiary NOT GIVENUNK [place] Insurance:SELF PAY [facility] Number: Effective Repository Date:2017-12-24 01/03/2018 JEAN PAUL E Primary JEAN PAUL E [place] [id number] Insurance:MEDICARE ZIMMERLYDOB: [facility] [place] PART A [facility] [id number] [place] Number[place] Repository [id number]: 330 [id number] [phone] (HP) Date:2018-01-03 01/03/2018 Secondary JEAN PAUL E [place] Insurance:EVERENCE ZIMMERLYDOB: [facility] [id number] Hospital Number: Repository [id number] Date:5341-67-83MT [facility] [address] [place] [address]JJ: 01/03/2018 Tertiary NOT GIVENUNK [place] Insurance:SELF PAY [facility] Hospital Number: Effective Repository Date:2018-01-03 12/04/2017 JEAN PAUL E Primary JEAN PAUL E [place] [id number] Insurance:MEDICARE ZIMMERLYDOB: [facility] [place] PART A [facility] [id number] River Health [place] Number: Repository [address]Vkl: 330 [id number] [phone] () Date:2017-09-07 12/04/2017 Secondary JEAN PAUL E [place] Insurance:EVERENCE ZIMMERLYDOB: [facility] [id number] Hospital Number: Repository [id number] Date:7489-98-50LB [address] [place] [address]RD: 12/04/2017 Tertiary NOT GIVENUNK [place] Insurance:SELF PAY [facility] Number: Effective Repository Date:2017-12-04 11/26/2017 JEAN PAUL E Primary JEAN PAUL E [place] [id number] Insurance:MEDICARE ZIMMERLYDOB: [facility] [place] PART A [facility] [id number] [place] Number: Repository [address]Cbj: 330 [id number] [phone] (HP) Date:2017-11-26 11/26/2017 Secondary JEAN PAUL E [place] Insurance:EVERENCE ZIMMERLYDOB: [facility] [id number] Hospital Number: Repository [id number] Date:3761-72-18JY [address] [address]OV: 11/26/2017 Tertiary NOT GIVENUNK [place] Insurance:SELF PAY [facility] Number: Effective Repository Date:2017-11-26 11/18/2017 JAEN PAUL E Primary JEAN PAUL E [facility] ZIMMERLYDOB: Insurance:MEDICARE ZIMMERLYDOB: [facility] [id number] PART BPolicy Number: [id number] Repository [place] [id number] [address] [place] Date:2017-11-18 [place], [place] [address]Euf: 330 [id number] 15125Idx: () Name:[facility] [phone] [facility] ()Tel: 000) [address]Jpv[address], 000-0000 ([place]) [place] [address]NE: 11/18/2017 Secondary JEAN PAUL E [facility] Insurance:EVERENCE OF ZIMMERMAKENNADOB: [facility] Number: [id number] Repository [id number] [address] [place] Date:2017-11-18 - [place] 8476-06-98Rorj [address]Ddi: (330) Name:[facility] [phone] [place] (HP)Tel: [phone]: (HZ) [phone] 10/24/2017 JEAN PAUL E Primary JEAN PAUL E [facility] ZIMMERLYDOB: Insurance:MEDICARE ZIMMERLYDOB: [facility] [id number] PART BPolicy Number: [id number] Repository [place] [id number] [address] [place], [place] Date:2017-10-11 [place], [place] [address]Fcq: 330 [id number] 005[address]Fhu: () Name:[facility] [phone] Administrators LLCPO (HP)Tel: 000) [address]Vqdjbabyc, 000-0000 ([place]) [place] [address]LK: 10/24/2017 Secondary JEAN PAUL E [facility] Insurance:EVERENCE OF ZIMMERLYDOB: [facility] Number: [id number] Repository [id number] [address] [place] [address] Date:2017-10-11 - [place], [place] 3734-71-26Qhrl [address]Duz: (711) Name:[facility] [phone], [place] (HP)Tel: [phone]: ([place]) [phone] 10/04/2017 JEAN PAUL E Primary JEAN PAUL E [place] [id number] Insurance:MEDICARE ZIMMERLYDOB: [facility] PART A [facility] [id number] Number: Repository [id number]: 330 [id number] [phone] () Date:2017-10-04 10/04/2017 Secondary JEAN PAUL E [place] Insurance:EVERENCE ZIMMERLYDOB: [facility] [id number] Hospital Number: Repository [id number] Date:7360-17-16CK [address] [address]DS: 10/04/2017 Tertiary NOT GIVENUNK [place] Insurance:SELF PAY [facility] Number: Effective Repository Date:2017-10-04 09/12/2017 JEAN PAUL E Primary JEAN PAUL E [place] [id number] Insurance:MEDICARE ZIMMERLYDOB: [facility] Hospital PART A [facility] [id number] Number: Repository [id number]: 330 [id number] [phone] () Date:2017-09-12 09/12/2017 Secondary JEAN PAUL E [place] Insurance:EVERENCE ZIMMERLYDOB: [facility] [id number] Hospital Number: Repository [id number] Date:7889-50-40OQ [address] [place] [place] [address]UQ: 09/12/2017 Tertiary NOT GIVENUNK [place] Insurance:SELF PAY [facility] Number: Effective Repository Date:2017-09-12 09/09/2017 JEAN PAUL E Primary JEAN PAUL E [place] [id number] Insurance:MEDICARE [facility]LY[facility]OB[facility] [id number] [place] Number[place] Repository [id number]: 330 [id number] [phone] (HP) Date:2017-08-29 09/09/2017 Secondary JEAN PAUL E [place] Insurance:EVERENCE ZIMMERLYDOB: [facility] [id number] Hospital Number: Repository [id number] Date:4498-21-47HE [address] [place] [address]PO: 09/09/2017 Tertiary NOT [place]UNK [place] Insurance:SELF PAY [facility] Number: Effective Repository Date:2017-08-29 09/09/2017 JEAN PAUL E Primary JEAN PAUL E [place] [id number] Insurance:MEDICARE ZIMMERLYDOB[facility] [id number] [place] Number[facility] Repository [address]Ncy: 330 [id number] [phone] Date:2017-08-29 09/09/2017 Secondary JEAN PAUL E [place] Insurance:EVERENCE ZIMMERLYDOB: [facility] [id number] Hospital Number: Repository [id number] Date:2434-71-00[address] [place] [address]LB: 09/09/2017 Tertiary NOT GIVENUNK [place] Insurance:SELF PAY [facility] Number: Effective Repository Date:2017-09-09 09/04/2017 JEAN PAUL E Primary JEAN PAUL E [place] [id number] Insurance:MEDICARE ZIMMERLYDOB[facility] [id number] [place] Number[place] Repository [address]Jfe: 330 [id number] [phone] (HP) Date:2017-05-21 09/04/2017 Secondary JEAN PAUL E [place] Insurance:EVERENCE ZIMMERLYDOB: [facility] [id number] Hospital Number: Repository [id number] Date:5660-82-27DR [address], [place] [address]WF: 09/04/2017 Tertiary NOT [place]UNK [place] Insurance:SELF PAY [facility] Number: Effective Repository Date:2017-05-21 08/28/2017 JEAN PAUL E Primary JEAN PAUL E [place] [id number] Insurance:MEDICARE ZIMMERLYDOB: [facility] [id number] [place] Number: Repository [address]Aah: 330 [id number] [phone] (HP) Date:2017-08-28 08/28/2017 Secondary JEAN PAUL E [place] Insurance:EVERENCE ZIMMERLYDOB: [facility] [id number] Hospital Number: Repository [id number] Date:8062-46-86[address], [place] [address]RM: 08/28/2017 Tertiary NOT [place] Insurance:SELF PAY [facility] Number: Effective Repository Date:2017-08-28 08/28/2017 JEAN PAUL E Primary JEAN PAUL E [place] [id number] Insurance:MEDICARE ZIMMERLYDOB: [facility] [id number] River Health [place] Number: Repository [id number]: 330 [id number] [phone] (HP) Date:2017-05-24 08/28/2017 Secondary JEAN PAUL E [place] Insurance:EVERENCE ZIMMERLYDOB: [facility] [id number] Hospital Number: Repository [id number] Date:2009-95-28[address], [place] [address]CX: 08/28/2017 Tertiary NOT [place] Insurance:SELF PAY [facility] Number: Effective Repository Date:2017-09-05 08/19/2017 JEAN PAUL E Primary JEAN PAUL E [place] [id number] Insurance:MEDICARE ZIMMERLYDOB: [facility] [id number] River Health [place] Number: Repository [address]Wgl: 330 [id number] [phone] (HP) Date:2017-08-19 08/19/2017 Secondary JEAN PAUL E [place] Insurance:EVERENCE ZIMMERLYDOB: [facility] [id number] Hospital Number: Repository [id number] Date:7160-25-11KA [address] [place] [address]WL: 08/19/2017 Tertiary NOT [place] Insurance:SELF PAY [facility] Number: Effective Repository Date:2017-08-19 07/23/2017 JEAN PAUL E Primary JEAN PAUL E [place] [id number] Insurance:MEDICARE ZIMMERLYDOB: [facility] [id number] [place], [place] Number: Repository [address]Qel: 330 [id number] [phone] (HP) Date:2017-06-25 07/23/2017 Secondary JEAN PAUL E [place] Insurance:EVERENCE ZIMMERLYDOB: [facility] [id number] Hospital Number: Repository [id number] Date:8519-41-67VB [address] [address]DZ: 07/23/2017 Tertiary NOT GIVENUNK [place] Insurance:SELF PAY [facility] Number: Effective Repository Date:2017-07-23 07/16/2017 JEAN PAUL E Primary JEAN PAUL E [place] [id number] Insurance:MEDICARE ZIMMERLYDOB: [facility] [id number] [place], [place] Number: Repository [id number]: 330 [id number] [phone] (HP) Date:2017-07-02 07/16/2017 Secondary JEAN PAUL E [place] Insurance:EVERENCE ZIMMERLYDOB: [facility] [id number] Hospital Number: Repository [id number] Date:3401-06-93KY [address] [place] [address], [place] [address]MY: 07/16/2017 Tertiary NOT GIVENUNK [place] Insurance:SELF PAY [facility] Number: Effective Repository Date:2017-07-05 06/25/2017 JEAN PAUL E Primary JEAN PAUL E [place] [id number] Insurance:MEDICARE ZIMMERLYDOB: [facility] [id number] [place], [place] Number: Repository [id number]: 330 [id number] [phone] (HP) Date:2017-06-25 06/25/2017 Secondary JEAN PAUL E [place] Insurance:EVERENCE ZIMMERLYDOB: [facility] [id number] Hospital Number: Repository [id number] Date:7746-42-88KZ [facility] [address] [address]TM: 06/25/2017 Tertiary NOT GIVENUNK [place] Insurance:SELF PAY [facility] Number: Effective Repository Date:2017-06-25 05/24/2017 JEAN PAUL E Primary JEAN PAUL E [place] [id number] Insurance:MEDICARE ZIMMERLYDOB: [facility] [id number] [place], [place] Number: Repository [id number]: 330 [id number] [phone] (HP) Date:2017-05-24 05/24/2017 Secondary JEAN PAUL E [place] Insurance:EVERENCE ZIMMERLYDOB: [facility] [id number] Hospital Number: Repository [id number] Date:8502-93-27BY [address] [place] [address] [place] [address]QZ: 05/24/2017 Tertiary NOT [place]UN[place] Insurance:SELF PAY [facility] Number: Effective Repository Date:2017-05-24 05/24/2017 JEAN PAUL E Primary JEAN PAUL E [place] [id number] Insurance:MEDICARE ZIMMERLYDOB: [facility] [id number] [place], [place] Number: Repository [id number]: 330 [id number] [phone] (HP) Date:2017-05-23 05/24/2017 Secondary JEAN PAUL E [place] Insurance:EVERENCE ZIMMERLYDOB: [facility] [id number] Hospital Number: Repository [id number] Date:2519-70-14DR [address] [address]NU: 05/24/2017 Tertiary NOT [place]IV[place]UNK [place] Insurance:SELF PAY [facility] Number: Effective Repository Date:2017-05-23 05/23/2017 Jean Paul E Primary JEAN PAUL E [place] [id number] Insurance:MEDICARE ZIMMERLYDOB: [facility] PART [facility] [id number] [place] Number: Repository [address]Tny: 330 [id number] [phone] (HP) Date:2017-05-23 05/23/2017 Secondary Jean Paul E [place] Insurance:EVERENCE ZimmerlyDOB: [facility] [id number] Hospital Number: Repository [id number] Date:8546-37-07FG [address] [place] [address]GH: 05/23/2017 Tertiary NOT [place]IV[place]UNK [place] Insurance:SELF PAY [facility] Hospital Number: Effective Repository Date:2017-05-23 05/21/2017 Jean Paul E Primary JENA PAUL E [place] [id number] Insurance:MEDICARE ZIMMERLYDOB: [facility] [id number] [place] Number: Repository [address]Wpm: 330 [id number] [phone] (HP) Date:2017-05-21 05/21/2017 Secondary Jean Paul E [place] Insurance:EVERENCE ZimmerlyDOB: [facility] [id number] Hospital Number: Repository [id number] Date:4199-79-95WI [address] [place] [address]ST: 05/21/2017 Tertiary NOT [place]UNK [place] Insurance:SELF PAY [facility] Number: Effective Repository Date:2017-05-21 04/17/2017 [facility]: [facility] [id number] PART BPolicy Number: [id number] Repository [facility] [id number] [address] [place], [place] Date:2017-04-17 - [place], [place] [address]Dvx: [phone] [id number] 901[address]Hzb: (HP) Name:[facility] [phone] [employer] (HP)Tel: [phone], [phone] ([place]) [place] [address]GD: 04/17/2017 Secondary [facility] Insurance:[facility]: [facility] Number: [id number] Repository [id number] 9 [facility] Date:2017-04-17 - [place], [place] 8417-80-27Imya [address]Cfa: (330) Name:[facility] [phone] JEWEL[employer] Back (HP)Tel: [phone]: [phone]
== END ==
PROVIDERS: Family Provider Family Medicine; PCP Family Medicine; Referring Provider Family Medicine; Visit Provider Family Medicine
DX: R53.83 Other fatigue (principal); E03.9 Hypothyroidism, unspecified
CPT/HCPCS: 36415; 84439; 84443; 85025

== ENCOUNTER 2018-04-09 13:00 | Outpatient (RCR) | payer MEDICARE, OTHER, SELFPAY ==
[2018-03-05 13:19] VITALS: BMI 30.4
--- NOTE | 2018-03-12 14:57 | HP.PTEVAL ---
Patient's Visit Information JEAN PAUL LICEA is a 77 year old F referred to Physical Therapy by Roosevelt Mahan DO with a diagnosis of OTHER SYMPTOMS AND SIGNS INVOLVING THE MUSCULOSKELETAL SYSTEM. Date of Evaluation: 03/12/18 Physical Therapist: Félix Sawyer, PT, Cert MDT, OCS - Visit Plan Frequency: 2x /Week Duration: 4 Weeks Plan: gait training ,balance training,strengthening LE,general condtion - Subjective Findings: This 77 y/o female presenst to physical therapy with difficulty with gait. Patient has been experiencing weakness in leg thus impairs gait . Patient has fallen at home. Patient seen MD recommended PT. Patient has multiple comorbities infleunce condtion.Patient had food surgery with achilles lengthening ,and surgery to support arch 1994. Patient uses cane for gait. Patient has h/o hodkins lymphoma. Patient c/o parathesia in hands.Patient has some dizziness. Patient lives 2 story [address] [facility] with stair lift. SOCAIL: lives with brother. VOACTION : RETIRED - Pain Bilateral Back Pain Intensity (Out of 10): 4 Pain Intensity Range: 10 - Objective POSTURE: mild foward posture trunk flexed foward ,ER right leg. NEURO: denies parathesia /tingling ,reflexes 1/3. GAIT: foward trunk ,slow burke unstaedy Right leg ER poor stance time ,shuffle steps. BALANCE: fair with cane. AROM: hip 95 degrees,knee 5-110 degrees. MMT: quads/hams 4-/5,hip flexion 3+/5 ,hip abd 3/5,ankle 4-/5 - Balance Scores Functional Gait Assessment Score: 2 % Disability: 93.3400 CATSIB Score (Max score 120 seconds): 10 - Goals Goal 1:: Patient to be Independant with HEP Goal Time Frame: 4-6 Weeks Goal 2:: Patient to be Independant with posture/body mechanics Goal Time Frame: 4-6 Weeks Goal 3:: Patient to improve BLE by 1/2 grade to inmprove function Goal Time Frame: 4-6 Weeks Goal 4:: Patient to improve CATSIB score b7 10 points to improve gait Goal Time Frame: 4-6 Weeks Goal 5:: Patient to improve functional gait assessment score by 10 points to improve gait Goal Time Frame: 4-6 Weeks - Rehabilitation Potential Physical Therapy Diagnosis: This patient has multile complexity issue along with weakness ,gait impairments and balance deficits thus benifit from skilled PT,did recommend rollator for walking safety Rehabilitation Potential: Fair - Anticipated Interventions Patient/Client Instruction: Educate patient on: Condition For the Purpose of:: To increase ROM, To improve muscle performance and motor function, To improve ability to perform ADL's, To increase tolerance to activity/condition/position, To improve ability of physical actions for home/community/work/leisure, To improve health of tissue, To decrease soft tissue restriction, To improve endurance, To improve balance, To improve safety with gait, To improve ability to perform tasks related to life management Therapeutic Exercise to Include: Strength training, Endurance training, Balance training, Gait and locomotor training For the Purpose of:: To improve muscle performance and motor function, To improve ability to perform ADL's, To increase tolerance to activity/condition/position, To improve ability of physical actions for home/community/work/leisure, To improve gait and locomotor functions, To increase flexibility/ROM, To improve endurance, To improve balance, To improve safety with gait, To assume or resume ADL's, To improve ability to perform tasks related to life management Thank you for the opportunity to evaluate your patient. For Medicare and Medicare HMO plans, please review the plan of care and approve it. It will need to be FAXED BACK to us at [phone] for Medicare purposes. For Medicare only, by signing this I certify the plan of care. Please let me know if there are questions or concerns regarding this plan of care. Physician Signature: Date:
--- NOTE | 2018-04-09 13:57 | HP.PTDCSUM_ITS ---
HP - PT D/C Summary It has been my pleasure to treat JEAN PAUL LICEA under orders from Roosevelt Mahan DO, for the diagnosis of OTHER SYMPTOMS AND SIGNS INVOLVING THE MUSCULOSKELETAL SYSTEM for a total of 9 visit(s). Discharge Date: 04/09/18 Please see the following information for a summary of their discharge status. - Subjective Subjective: Doing okay ,,patient reports no falls. Plan for heart monitor to deternine if I need pacemaker - Pain Bilateral Back Pain Intensity (Out of 10): 3 - Overall Improvement % Improvement: 50 - Objective Objective/Function: POSTURE:mild foward mild knee valgus. GAIT: mild foward posture knee valgus reciprocal antalgic. MMT: quads/hams 4-/5,hip flexion 4- /5,hip abd 3+/5,ankle 4/5. BALANCE: fair with fww - Goals Goal 1:: Patient to be Independant with HEP Goal Progress: Goal Met Goal 2:: Patient to be Independant with posture/body mechanics Goal Progress: Goal Met Goal 3:: Patient to improve BLE by 1/2 grade to inmprove function Goal Progress: Progressing Goal 4:: Patient to improve CATSIB score b7 10 points to improve gait Goal Progress: Goal Met Goal 5:: Patient to improve functional gait assessment score by 10 points to improve gait Goal Progress: Progressing - Plan Plan: D/C - D/C Information Discharge Comments: HEP If there are questions or concerns regarding this patient's physical therapy, please feel free to call me at [phone]. Thank you for the referral of this patient. Sincerely, Félix Sawyer, PT, Cert MDT, OCS
== END 2018-04-09 19:00 | disposition home or self-care (01) ==
LOC: PT 13:00
PROVIDERS: Family Provider Family Medicine; PCP Family Medicine; Referring Provider Family Medicine; Visit Provider Family Medicine
DX: R29.898 Other symptoms and signs involving the musculoskeletal system (principal)
CPT/HCPCS: 97110; 97163; 97530

== ENCOUNTER 2018-04-21 14:15 | Outpatient (RCR) | payer MEDICARE, OTHER, SELFPAY ==
[2018-03-05 13:19] VITALS: BMI 30.4
[2018-04-02 16:49] LABS: Prothrombin Time (Protime)PT. 38.9 SECONDS (11.7-14.9)
[2018-04-07 16:03] LABS: International Normalized Ratio 1.4; Prothrombin Time (Protime)PT. 16.9 SECONDS (11.7-14.9)
[2018-04-15 15:47] LABS: International Normalized Ratio 1.2; Prothrombin Time (Protime)PT. 14.9 SECONDS (11.7-14.9)
[2018-04-21 15:49] LABS: International Normalized Ratio 1.6; Prothrombin Time (Protime)PT. 18.7 SECONDS (11.7-14.9)
== END 2018-04-21 16:00 | disposition home or self-care (01) ==
LOC: MTLAB 14:15
PROVIDERS: Family Provider Family Medicine; PCP Family Medicine; Referring Provider Family Medicine; Visit Provider Family Medicine
DX: I26.99 Other pulmonary embolism without acute cor pulmonale (principal); Z79.899 Other long term (current) drug therapy
CPT/HCPCS: 36415; 85610

== ENCOUNTER 2018-05-20 15:02 | Outpatient (RCR) | payer MEDICARE, OTHER, SELFPAY ==
[2018-03-05 13:19] VITALS: BMI 30.4
[2018-04-29 16:48] LABS: International Normalized Ratio 1.4; Prothrombin Time (Protime)PT. 17.4 SECONDS (11.7-14.9)
[2018-05-08 16:49] LABS: International Normalized Ratio 1.6; Prothrombin Time (Protime)PT. 19.5 SECONDS (11.7-14.9)
[2018-05-20 17:55] LABS: International Normalized Ratio 1.7; Prothrombin Time (Protime)PT. 19.6 SECONDS (11.7-14.9)
== END 2018-05-22 15:01 | disposition home or self-care (01) ==
LOC: MTLAB 15:02
PROVIDERS: Nurse Practitioner Family; Family Provider Family Medicine; PCP Family Medicine; Referring Provider Family Medicine; Visit Provider Family Medicine
DX: Z79.899 Other long term (current) drug therapy (principal)
CPT/HCPCS: 36415; 85610

== ENCOUNTER 2018-06-10 12:44 | Outpatient (RCR) | payer MEDICARE, OTHER, SELFPAY ==
[2018-03-05 13:19] VITALS: BMI 30.4
[2018-05-28 16:07] LABS: International Normalized Ratio 2.1; Prothrombin Time (Protime)PT. 23.9 SECONDS (11.7-14.9)
[2018-06-10 15:18] LABS: Hematocrit 36.6 % (37-47); Mean Corp Hgb Conc 32.8 g/gl (32-36); Mean Corpuscular Hgb 31.5 pg (27.0-32.0); Mean Corpuscular Volume 96.1 fL (81-99); Mean Platelet Vol. 10.6 fl (6.2-12.0); Platelet Count 147 K/mm3 (150-450); RBC Distribution Width CV 12.9 % (11.6-14.6); RBC Distribution Width SD 45.2 fl (35.1-43.9); Red Blood Count 3.81 M/mm3 (4.2-5.4); White Blood Count 4.8 K/mm3 (4.4-11.0)
[2018-06-10 15:33] LABS: T4 Free Direct 1.73 ng/dL (0.76-1.46); Thyroid Stim Hormone (TSH) 0.37 uIU/mL (0.358-3.74)
[2018-06-10 15:46] LABS: Scan Indicated on CBC? Y/N NO
== END 2018-06-10 13:00 | disposition home or self-care (01) ==
LOC: MTLAB 12:44
PROVIDERS: Family Provider Family Medicine; PCP Family Medicine; Referring Provider Family Medicine; Visit Provider Family Medicine
DX: Z79.01 Long term (current) use of anticoagulants (principal); R53.83 Other fatigue
CPT/HCPCS: 36415; 84439; 84443; 85027; 85610

== ENCOUNTER 2018-07-09 15:14 | Outpatient (RCR) | payer MEDICARE, OTHER, SELFPAY ==
[2018-06-10 13:05] VITALS: BMI 30.4
[2018-07-09 17:55] LABS: International Normalized Ratio 2.1; Prothrombin Time (Protime)PT. 23.6 SECONDS (11.7-14.9)
== END 2018-07-22 16:00 | disposition home or self-care (01) ==
LOC: MTLAB 15:14
PROVIDERS: Family Provider Family Medicine; PCP Family Medicine; Referring Provider Family Medicine; Visit Provider Family Medicine
DX: Z79.01 Long term (current) use of anticoagulants (principal); Z86.718 Personal history of other venous thrombosis and embolism
CPT/HCPCS: 36415; 85610

== ENCOUNTER 2018-08-04 14:55 | Outpatient (RCR) | payer MEDICARE, OTHER, SELFPAY ==
[2018-06-10 13:05] VITALS: BMI 30.4
[2018-08-04 17:54] LABS: International Normalized Ratio 1.6; Prothrombin Time (Protime)PT. 18.9 SECONDS (11.7-14.9)
== END 2018-08-04 15:00 | disposition home or self-care (01) ==
LOC: MTLAB 14:55
PROVIDERS: Family Provider Family Medicine; PCP Family Medicine; Referring Provider Family Medicine; Visit Provider Family Medicine
DX: Z79.01 Long term (current) use of anticoagulants (principal); Z86.718 Personal history of other venous thrombosis and embolism
CPT/HCPCS: 36415; 85610

== ENCOUNTER 2018-08-22 14:31 | Outpatient (RCR) | payer MEDICARE, OTHER, SELFPAY ==
[2018-03-05 13:19] VITALS: BMI 30.4
[2018-06-10 13:05] VITALS: BMI 30.4
[2018-08-15 17:27] LABS: International Normalized Ratio 1.7; Prothrombin Time (Protime)PT. 19.4 SECONDS (11.7-14.9)
[2018-08-22 17:38] LABS: International Normalized Ratio 2.8; Prothrombin Time (Protime)PT. 29.8 SECONDS (11.7-14.9)
== END 2018-08-22 16:00 | disposition home or self-care (01) ==
LOC: MTLAB 14:31
PROVIDERS: Family Provider Family Medicine; PCP Family Medicine; Referring Provider Family Medicine; Visit Provider Family Medicine
DX: Z79.01 Long term (current) use of anticoagulants (principal); Z86.718 Personal history of other venous thrombosis and embolism
CPT/HCPCS: 36415; 85610

== ENCOUNTER → 2018-09-04 | Outpatient (CLI) | payer MEDICARE, OTHER, SELFPAY ==
[2018-03-05 13:19] VITALS: BMI 30.4
[2018-06-10 13:05] VITALS: BMI 30.4
--- NOTE | 2018-09-04 12:44 | CT_ITS ---
HISTORY: Lung nodules follow-up TECHNIQUE: Helically acquired images were obtained of the chest. A radiation dose optimization technique was used for this scan. IV Contrast dosage and agent: None. COMPARISON: September 04, 2017, September 04, 2016, September 05, 2015, April 04, 2015, and September 30, 2014. FINDINGS: # of images incl. paperwork: [phone] Several nodules remain within the right lower lobe sitting on the diaphragm. They are contiguous with one another, and difficult to separate out nodule from nodule from diaphragm. On lung windows, the largest, most lateral lesion within the right lower lobe, sitting on the diaphragm, abutting the major fissure, and anterior posterior dimensions, as measured on lung windows, series 4 image 91 is 1.5 cm. This lesion, on the September 30, 2014 study was slightly better defined, as were several additional adjacent nodules, likely due to improved pulmonary expansion, measured 1.3 cm. My measurement of this lesion of September 04, 2017 is 1.5 cm. My measurement of this lesion on September 05, 2015 1.4 cm. Bronchiectasis with bronchial wall thickening is present within the lower lungs. This is similar. The smaller nodules surrounding this larger nodule, on the diaphragm, anteriorly within the right lower lobe are otherwise very similar. A 3 mm nodule on the minor fissure within the right lower lobe is unchanged since September 30, 2014. Series 4 image 58 demonstrates a 3 x 1 mm nodule in the left upper lobe. This is more conspicuous on today's study compared to August 2017, but not enlarged. This is unchanged since September 05, 2015, and more conspicuous since September 30, 2014, but not significantly increased in size. 2 mm right upper lobe peripheral nodule anteriorly described on series 4 image 28 of the previous study is no longer identified. Groundglass opacity within the lungs is present but perhaps to a lesser degree than the previous study due to slightly improved expansion than previously, but still less expansion than the 2014 study. Posterior right seventh, eighth, ninth, and 11th incompletely healed rib fractures are more healed than the most recent study. Vertebral body height is fairly well-preserved. Calcification of intervertebral disks at almost every level within the thoracic spine is similar. Anterior bridging small enthesophytes are similar. Calcifications within the erector spinae musculature, posterior to the thoracic spine at many levels is the same as on all of the studies. Elongation of the thoracic aorta with atherosclerotic plaque is similar. Calcification tracheal bronchial tree is severe. Calcification around the aortic valve and mitral valve within the coronary arteries is similar. Mediastinal lymph nodes remain prominent. Axillary lymph nodes are normal. The gallbladder is been resected. Some metal is present at the left hemiabdomen near the splenic hilum, possibly related to clipping of an aneurysm. Gastric surgery has been performed. Small vessel calcifications within the breasts and anterior chest wall suggests long-standing type [address]Chest without Contrast IMPRESSION: Multiple pulmonary nodules. No new nodule since September 30, 2014. Slight increase in size of the largest nodule adjacent to the right hemidiaphragm from 1.3-1.5 cm since September 30, 2014. This 2 mm of growth over almost 4 years is not consistent with malignancy. Other nodules have also not grown or resolved. Per Fleischner Society recommendations, these nodules can be considered benign. Individualized dose optimization techniques were used for this CT. at 0234 Reported and signed by: Charles Garza MD Electronically Signed: Charles Garza MD at 2:33 EDT Tel , Service support ,
== END | disposition home or self-care (01) ==
LOC: CT 12:43
PROVIDERS: Family Provider Family Medicine; PCP Family Medicine; Referring Provider Internal Medicine Pulmonary Disease; Visit Provider Internal Medicine Pulmonary Disease
DX: R91.1 Solitary pulmonary nodule (principal)
CPT/HCPCS: 71250

== ENCOUNTER 2018-09-18 14:22 | Outpatient (RCR) | payer MEDICARE, OTHER, SELFPAY ==
[2018-06-10 13:05] VITALS: BMI 30.4
[2018-08-29 14:18] LABS: International Normalized Ratio 3.1; Prothrombin Time (Protime)PT. 31.8 SECONDS (11.7-14.9)
[2018-09-04 17:51] LABS: Prothrombin Time (Protime)PT. 37.5 SECONDS (11.7-14.9)
[2018-09-04 18:04] LABS: International Normalized Ratio 3.8
[2018-09-18 15:49] LABS: International Normalized Ratio 1.3; Prothrombin Time (Protime)PT. 15.5 SECONDS (11.7-14.9)
== END 2018-09-18 15:00 | disposition home or self-care (01) ==
LOC: MTLAB 14:22
PROVIDERS: Family Provider Family Medicine; PCP Family Medicine; Referring Provider Family Medicine; Visit Provider Family Medicine
DX: Z79.01 Long term (current) use of anticoagulants (principal); Z86.718 Personal history of other venous thrombosis and embolism; R91.1 Solitary pulmonary nodule
CPT/HCPCS: 36415; 71250; 85610

== ENCOUNTER 2018-10-08 14:23 | Outpatient (RCR) | payer MEDICARE, OTHER, SELFPAY ==
[2018-09-04 14:44] VITALS: BMI 30.4
[2018-09-24 16:03] LABS: International Normalized Ratio 2.3; Prothrombin Time (Protime)PT. 25.5 SECONDS (11.7-14.9)
[2018-10-08 16:36] LABS: International Normalized Ratio 2.5; Prothrombin Time (Protime)PT. 26.6 SECONDS (11.7-14.9)
== END 2018-10-08 15:00 | disposition home or self-care (01) ==
LOC: MTLAB 14:23
PROVIDERS: Family Provider Family Medicine; PCP Family Medicine; Referring Provider Family Medicine; Visit Provider Family Medicine
DX: Z79.01 Long term (current) use of anticoagulants (principal); Z86.718 Personal history of other venous thrombosis and embolism
CPT/HCPCS: 36415; 85610

== ENCOUNTER 2018-10-22 09:30 | Outpatient (RCR) | payer MEDICARE, OTHER, SELFPAY ==
[2018-09-24 16:18] VITALS: BMI 30.4
[2018-10-08 11:33] VITALS: BP 157/80; PULSE 80; RESP 18; TEMP 35.3; BMI 30.2
--- NOTE | 2018-10-08 15:09 | PCM.WC.HP ---
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 Burden is an 80-year-old who was referred to the wound center by her primary care physician due to nonhealing abdominal wall ulcer. This was started about 6 weeks ago. After onset, she was seen by her primary care physician and treated with a 10-day course of Keflex with some improvement noted. She was reevaluated after 3 weeks and subsequently referred here due to nonhealing of the ulcer. She admits to significant moisture in the yeast in her abdominal fold. She states that she tries to keep the area dry and applies plain powder to the area. She also admits to a lot of layering because she stays cold. She denies any significant discharge. She also denies chills or fever. 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) Skin ulcer (Chronic) Generalized weakness (Chronic) Osteoporosis (Chronic) Arthritis (Chronic) Chronic pain (Chronic) Hypertension (Chronic) Hypothyroidism (Chronic) Sleep apnea (Chronic) Chronic ITP (idiopathic thrombocytopenia) (Chronic) Allergies/Adverse Reactions: Allergies gentamicin Adverse Reaction (Verified 09/04/18 14:43) Unknown Home Medications: Ambulatory Orders Medication Instructions Recorded Ascorbic Acid 500 mg PO DAILY 06/20/16 Calcium Carb/Vitamin D 1 tab PO BIDCM 06/20/16 [Caltrate-600 With Vit D Tab] Cetirizine HCl [Zyrtec] 10 mg PO DAILY 06/20/16 Cyanocobalamin (Vitamin B-12) 1,000 mcg PO DAILY 06/20/16 [B-12] Folic Acid/Vit B Complex and C 400 mcg PO DAILY 06/20/16 [B-Complex with Vit C Caplet] [place]-3 Fatty Acids/Fish Oil 1 ea PO DAILY 06/20/16 [[place] 3 1,000 mg Softgel] Vitamin E (Dl,Tocopheryl Acet) 200 unit PO DAILY 06/20/16 [E-200] Multivitamin [Multiple Vitamins] 1 ea PO DAILY 06/21/16 artificial tears (hypromellose) 1 drp OPHTHALMIC ONCE 05/24/17 0.3 % eye gel carboxymethylcellulose sodium 1 % 1 drp OPHTHALMIC 4-8XD PRN 05/24/17 eye liquid gel drops prednisolone acetate 1 % eye 1 drp OPHTHALMIC Q4H 05/24/17 drops,suspension solifenacin 10 mg tablet 10 mg PO QDAY 07/16/17 amlodipine 5 mg tablet 5 mg PO QDAY #90 tab 10/18/17 furosemide 40 mg tablet 40 mg PO DAILY PRN #90 tab 10/18/17 lisinopril 40 mg tablet 40 mg PO DAILY #90 tab 10/18/17 alendronate 70 mg tablet 70 mg PO QWEEK #12 tab 04/04/18 levothyroxine 75 mcg tablet 75 mcg PO QDAY #90 tab 04/23/18 nabumetone 500 mg tablet 500 mg PO BID PRN #180 tab 08/07/18 multivitamin with minerals tablet 1 tab PO BID tab 09/04/18 mupirocin 2 % topical ointment 1 applic TOPICAL BID #30 g 09/05/18 docusate sodium 100 mg capsule 100 mg PO DAILY PRN cap 09/24/18 warfarin 1 mg tablet 1 mg PO DAILY #60 tab 09/24/18 warfarin 2 mg tablet 2 mg PO DAILY #60 tab 09/24/18 Smoking Status: Never smoker Review of Systems Constitutional: Denies: Anorexia, Chills, Fever Eyes: Denies: Pain, Redness HEENT: Denies: Difficulty Swallowing Cardiovascular: Denies: Chest Pain, Chest Pressure Respiratory: Denies: Hemoptysis Gastrointestinal: Denies: Hematemesis Genitourinary: Denies: Hematuria - Physical Exam Vital Signs Temp Pulse Resp BP 95.5 F L 80 18 157/80 H 10/08/18 11:33 10/08/18 11:33 10/08/18 11:33 10/08/18 11:33 General: Alert, Oriented x3, Cooperative, No apparent distress HEENT: Atraumatic, Normocephalic Oral: Moist Mucosa Neck: Supple Lungs: Normal air movement Cardiovascular: Regular rate, Regular Rhythm, Normal S1, Normal S2 Abdomen: Soft, Obese Extremities: No cyanosis, No edema Skin: Ulcer/ Wound Wound Measurements and Assessment WC - Nurse 1 - General Ulcer Measurement Start: 10/08/18 11:24 Freq: Status: Active Protocol: Activity Type Activity Date Activity User E-Sign Co-Sign Detail Recorded Client Recorded Date Recorded By Document 10/08/18 11:33 DV [id number] 10/08/18 12:03 DV 10/08/18 11:33 Wound Center Nurse 1 [Ulcer Assessment] #2 Right Lower Abdomen- Medial -Combined with other wound No -Current Size (cm) - Length 2.0 -Current Size (cm) - Width 2.5 -Current Size (cm) - Depth 0.1 -Total Square Cm 5.00 -Photo Taken No -Epithelialization None Present -Tunneling No -Undermining/Tunneling No -Circular Undermining No -Classification - Thickness Full Thickness without Exposed Support Structure -Exudate Amt Medium -Exudate Type Serosanguineous -Wound Margin Flat & Intact -Granulation Amt None Present (0 %) -Granulation Quality N/A -Slough/Fibrin No -Necrosis Amt Large (67-100%) -Necrotic Tissue Type Adherent Slough -Structure Exposed None/Limited to Skin Breakdown -Texture (Shanita-wound Skin Appearance) Assessed, Scarring,Rash -Moisture (Shanita-wound Skin Appearance Assessed, ) Weeping -Color (Shanita-wound Skin Appearance) Assessed, Erythema -Temperature (Shanita-wound Skin No Abnormality Appearance) (Pt Warm) -Tenderness on Palpation (Shanita-wound Yes Skin Appearance) -Foul Odor after Cleansing Yes -Anesthetic Used 5% Lidocaine Gel #1 Right Lower Abdomen- Lateral -Combined with other wound No -Current Size (cm) - Length 1.1 -Current Size (cm) - Width 3.3 -Current Size (cm) - Depth 0.1 -Total Square Cm 3.63 -Date of Last Picture (Recall this 10/08/18 field) -Photo Taken Yes -Epithelialization None Present -Tunneling No -Undermining/Tunneling No -Circular Undermining No -Classification - Thickness Full Thickness without Exposed Support Structure -Exudate Amt Medium -Exudate Type Yellow/Green -Wound Margin Flat & Intact -Granulation Amt None Present (0 %) -Granulation Quality N/A -Necrosis Amt Large (67-100%) -Necrotic Tissue Type Adherent Slough -Structure Exposed None/Limited to Skin Breakdown -Texture (Shanita-wound Skin Appearance) Assessed, Localized Edema ,Scarring -Moisture (Shanita-wound Skin Appearance Assessed, ) Weeping -Color (Shanita-wound Skin Appearance) Assessed, Erythema -Temperature (Shanita-wound Skin No Abnormality Appearance) (Pt Warm) -Tenderness on Palpation (Shanita-wound Yes Skin Appearance) -Foul Odor after Cleansing Yes -Anesthetic Used 5% Lidocaine Gel WC - Nurse 2 - General Ulcer CM Notes Start: 10/08/18 11:24 Freq: Status: Active Protocol: Activity Type Activity Date Activity User E-Sign Co-Sign Detail Recorded Client Recorded Date Recorded By Document 10/08/18 12:16 MW [id number] 10/08/18 12:25 MW 10/08/18 12:16 Wound Center Nurse 2 [Procedure/Treatment] #2 Right Lower Abdomen- Medial -Time 12:17 -Correct Patient Yes -Correct Side, Site, Position Yes -Correct Procedure Yes -Procedure Performed Yes -Type of Procedure Debridement -Clinical Debridement Subcutaneous -Post Debridement Size (cm) - Length 2.0 -Post Debridement Size (cm) - Width 2.2 -Post Debridement Size (cm) - Depth 0.1 -Total Square Cm 4.40 -Wound/Ulcer Outcome Not Healed -Ulcer Cleansing Rinsed/ Irrigated with Saline -Foul Odor after Cleansing No -Bioengineered Tissue No -Bleeding Controlled with Pressure -Offloading No -Treatment Response Procedure Tolerated Well #1 Right Lower Abdomen- Lateral -Time 12:17 -Correct Patient Yes -Correct Side, Site, Position Yes -Correct Procedure Yes -Procedure Performed Yes -Type of Procedure Debridement -Clinical Debridement Subcutaneous -Post Debridement Size (cm) - Length 0.7 -Post Debridement Size (cm) - Width 2.5 -Post Debridement Size (cm) - Depth 0.1 -Total Square Cm 1.75 -Wound/Ulcer Outcome Not Healed -Ulcer Cleansing Rinsed/ Irrigated with Saline -Foul Odor after Cleansing No -Bioengineered Tissue No -Bleeding Controlled with Pressure -Offloading No -Treatment Response Procedure Tolerated Well [See Physician Procedure note for Specifics] Pain Scale: 0-10 Numeric [Pain] -Is Patient Pain Free? Yes Musculoskeletal: No Muscle Wasting Neurological: Cranial nerves II-XII grossly intact Psych/Mental Status: Normal Affect Debridement Note Post-Debridement Measurements/Treatment WC - Nurse 2 - General Ulcer CM Notes Start: 10/08/18 11:24 Freq: Status: Active Protocol: Activity Type Activity Date Activity User E-Sign Co-Sign Detail Recorded Client Recorded Date Recorded By Document 10/08/18 12:16 MW [id number] 10/08/18 12:25 MW 10/08/18 12:16 Wound Center Nurse 2 #2 Right Lower Abdomen- Medial -Time 12:17 -Correct Patient Yes -Correct Side, Site, Position Yes -Correct Procedure Yes -Procedure Performed Yes -Type of Procedure Debridement -Clinical Debridement Subcutaneous -Post Debridement Size (cm) - Length 2.0 -Post Debridement Size (cm) - Width 2.2 -Post Debridement Size (cm) - Depth 0.1 -Total Square Cm 4.40 -Wound/Ulcer Outcome Not Healed -Ulcer Cleansing Rinsed/ Irrigated with Saline -Foul Odor after Cleansing No -Bioengineered Tissue No -Bleeding Controlled with Pressure -Offloading No -Treatment Response Procedure Tolerated Well #1 Right Lower Abdomen- Lateral -Time 12:17 -Correct Patient Yes -Correct Side, Site, Position Yes -Correct Procedure Yes -Procedure Performed Yes -Type of Procedure Debridement -Clinical Debridement Subcutaneous -Post Debridement Size (cm) - Length 0.7 -Post Debridement Size (cm) - Width 2.5 -Post Debridement Size (cm) - Depth 0.1 -Total Square Cm 1.75 -Wound/Ulcer Outcome Not Healed -Ulcer Cleansing Rinsed/ Irrigated with Saline -Foul Odor after Cleansing No -Bioengineered Tissue No -Bleeding Controlled with Pressure -Offloading No -Treatment Response Procedure Tolerated Well Pain Scale: 0-10 Numeric Is Patient Pain Free? Yes Wound debrided: Right lower abdomen (medial) Wound Grade/Stage: Stage III Type of Debridement: Excisional debridement Anesthesia Used: 4% Lidocaine Solution Depth: Down to and including healthy tissue, in the subcutaneous layer Percentage of wound debrided: 100 Instrument Used: 3mm curette Tissue Removed: Slough and devitalized tissue Severity: Fat Layer Exposed Amount of bleeding with debridement: Mild Bleeding Controlled with: Pressure Patient tolerated procedure well - Additional Wound Wound debrided: Right lower abdomen (lateral) Wound Grade/Stage: Stage II Type of Debridement: Excisional debridement Anesthesia Used: 4% Lidocaine Solution Depth: Down to and including healthy tissue, in the subcutaneous layer Percentage of wound debrided: 100 Instrument Used: 3mm curette Tissue Removed: Slough and devitalized tissue Severity: Fat Layer Exposed Amount of bleeding with debridement: Mild Bleeding Controlled with: Pressure Patient tolerated procedure: Patient tolerated procedure well Assessment/Plan Assessment: Same as above Plan: Debridement done as documented above. Procedure was well-tolerated. Ulceration likely due to pannicultis/increased moisture buildup due to dermatitis intertrigo. Culture taken from medial ulcer. Fibracol daily with Adaptic over top. Strongly advised that she keep surrounding area and pannus dry. Antifungal powder recommended. Use of absorbable clothing (100% cotton materials)also discussed. Advised to avoid layering. Increased protein intake also recommended. All her questions were answered and she was advised to call with any further questions or concerns. Follow-up in a week. This note was generated with [employer] dictation software. It may contain incorrect words, spelling, and punctuation that were not noted in checking the note before signing.
[2018-10-15 10:57] VITALS: BP 144/68; PULSE 86; RESP 20; TEMP 36.6; BMI 30.2
--- NOTE | 2018-10-15 11:44 | PCM.WC.PN ---
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 Burden is an 80-year-old who was referred to the wound center by her primary care physician due to nonhealing abdominal wall ulcer. This was started about 6 weeks ago. After onset, she was seen by her primary care physician and treated with a 10-day course of Keflex with some improvement noted. She was reevaluated after 3 weeks and subsequently referred here due to nonhealing of the ulcer. She admits to significant moisture in the yeast in her abdominal fold. She states that she tries to keep the area dry and applies plain powder to the area. She also admits to a lot of layering because she stays cold. She denies any significant discharge. She also denies chills or fever. Progress of Wound: No significnat improvement in the past week. Medial ulcer also with more slough and drainage. - Physical Exam Vital Signs Temp Pulse Resp BP 97.9 F 86 20 H 144/68 H 10/15/18 10:57 10/15/18 10:57 10/15/18 10:57 10/15/18 10:57 General: Alert, Oriented x3, Cooperative, No apparent distress HEENT: Atraumatic, Normocephalic Oral: Moist Mucosa Neck: Supple Lungs: Normal air movement Abdomen: Obese Extremities: No cyanosis Skin: Ulcer/ Wound Wound Measurements and Assessment WC - Nurse 1 - General Ulcer Measurement Start: 10/08/18 11:24 Freq: Status: Active Protocol: Activity Type Activity Date Activity User E-Sign Co-Sign Detail Recorded Client Recorded Date Recorded By Document 10/15/18 10:57 DL [id number] 10/15/18 11:06 DL 10/15/18 10:57 Wound Center Nurse 1 [Ulcer Assessment] #2 Right Lower Abdomen- Medial -Current Size (cm) - Length 2 -Current Size (cm) - Width 2.6 -Current Size (cm) - Depth 0.5 -Total Square Cm 5.2 -Photo Taken No -Exudate Amt Small -Exudate Type Serosanguineous -Wound Margin Distinct, Outline Attached -Granulation Amt Small (1-33%) -Necrosis Amt Large (67-100%) -Necrotic Tissue Type Adherent Slough -Structure Exposed N/A -Texture (Shanita-wound Skin Appearance) Scarring -Moisture (Shanita-wound Skin Appearance No Abnormality ) -Color (Shanita-wound Skin Appearance) Erythema -Temperature (Shanita-wound Skin No Abnormality Appearance) (Pt Warm) -Tenderness on Palpation (Shanita-wound Yes Skin Appearance) -Ulcer Cleansing Rinsed/ Irrigated with Saline -Foul Odor after Cleansing No -Anesthetic Used 5% Lidocaine Gel #1 Right Lower Abdomen- Lateral -Current Size (cm) - Length 0.7 -Current Size (cm) - Width 2.4 -Current Size (cm) - Depth 0.2 -Total Square Cm 1.68 -Photo Taken No -Exudate Amt Small -Exudate Type Serosanguineous -Wound Margin Distinct, Outline Attached -Granulation Amt None Present (0 %) -Necrosis Amt Large (67-100%) -Necrotic Tissue Type Adherent Slough -Structure Exposed N/A -Texture (Shanita-wound Skin Appearance) Scarring -Moisture (Shanita-wound Skin Appearance No Abnormality ) -Color (Shanita-wound Skin Appearance) Erythema -Temperature (Shanita-wound Skin No Abnormality Appearance) (Pt Warm) -Tenderness on Palpation (Shanita-wound No Skin Appearance) -Ulcer Cleansing Rinsed/ Irrigated with Saline -Foul Odor after Cleansing No -Anesthetic Used 4% Lidocaine Solution WC - Nurse 2 - General Ulcer CM Notes Start: 10/08/18 11:24 Freq: Status: Active Protocol: Activity Type Activity Date Activity User E-Sign Co-Sign Detail Recorded Client Recorded Date Recorded By Document 10/15/18 11:23 MW [id number] 10/15/18 11:29 MW 10/15/18 11:23 Wound Center Nurse 2 [Procedure/Treatment] #2 Right Lower Abdomen- Medial -Time 11:25 -Correct Patient Yes -Correct Side, Site, Position Yes -Correct Procedure Yes -Procedure Performed Yes -Type of Procedure Debridement -Clinical Debridement Subcutaneous -Post Debridement Size (cm) - Length 2.0 -Post Debridement Size (cm) - Width 2.6 -Post Debridement Size (cm) - Depth 0.4 -Total Square Cm 5.20 -Wound/Ulcer Outcome Not Healed -Ulcer Cleansing Rinsed/ Irrigated with Saline -Foul Odor after Cleansing No -Bioengineered Tissue No -Bleeding Controlled with Pressure -Offloading No -Treatment Response Procedure Tolerated Well #1 Right Lower Abdomen- Lateral -Time 11:26 -Correct Patient Yes -Correct Side, Site, Position Yes -Correct Procedure Yes -Procedure Performed Yes -Type of Procedure Debridement -Clinical Debridement Subcutaneous -Post Debridement Size (cm) - Length 0.8 -Post Debridement Size (cm) - Width 3.0 -Post Debridement Size (cm) - Depth 0.1 -Total Square Cm 2.40 -Wound/Ulcer Outcome Not Healed -Ulcer Cleansing Rinsed/ Irrigated with Saline -Foul Odor after Cleansing No -Bioengineered Tissue No -Bleeding Controlled with Pressure -Offloading No -Treatment Response Procedure Tolerated Well [See Physician Procedure note for Specifics] Pain Scale: 0-10 Numeric [Pain] -Is Patient Pain Free? Yes Musculoskeletal: No Muscle Wasting Neurological: Cranial nerves II-XII grossly intact Psych/Mental Status: Normal Affect Debridement Note Post-Debridement Measurements/Treatment WC - Nurse 2 - General Ulcer CM Notes Start: 10/08/18 11:24 Freq: Status: Active Protocol: Activity Type Activity Date Activity User E-Sign Co-Sign Detail Recorded Client Recorded Date Recorded By Document 10/08/18 12:16 MW [id number] 10/08/18 12:25 MW Document 10/15/18 11:23 MW [id number] 10/15/18 11:29 MW 10/08/18 10/15/18 12:16 11:23 Wound Center Nurse 2 #2 Right Lower Abdomen- Medial -Time 12:17 11:25 -Correct Patient Yes Yes -Correct Side, Site, Position Yes Yes -Correct Procedure Yes Yes -Procedure Performed Yes Yes -Type of Procedure Debridement Debridement -Clinical Debridement Subcutaneous Subcutaneous -Post Debridement Size (cm) - Length 2.0 2.0 -Post Debridement Size (cm) - Width 2.2 2.6 -Post Debridement Size (cm) - Depth 0.1 0.4 -Total Square Cm 4.40 5.20 -Wound/Ulcer Outcome Not Healed Not Healed -Ulcer Cleansing Rinsed/ Rinsed/ Irrigated with Irrigated with Saline Saline -Foul Odor after Cleansing No No -Bioengineered Tissue No No -Bleeding Controlled with Pressure Pressure -Offloading No No -Treatment Response Procedure Procedure Tolerated Well Tolerated Well #1 Right Lower Abdomen- Lateral -Time 12:17 11:26 -Correct Patient Yes Yes -Correct Side, Site, Position Yes Yes -Correct Procedure Yes Yes -Procedure Performed Yes Yes -Type of Procedure Debridement Debridement -Clinical Debridement Subcutaneous Subcutaneous -Post Debridement Size (cm) - Length 0.7 0.8 -Post Debridement Size (cm) - Width 2.5 3.0 -Post Debridement Size (cm) - Depth 0.1 0.1 -Total Square Cm 1.75 2.40 -Wound/Ulcer Outcome Not Healed Not Healed -Ulcer Cleansing Rinsed/ Rinsed/ Irrigated with Irrigated with Saline Saline -Foul Odor after Cleansing No No -Bioengineered Tissue No No -Bleeding Controlled with Pressure Pressure -Offloading No No -Treatment Response Procedure Procedure Tolerated Well Tolerated Well Pain Scale: 0-10 Numeric Is Patient Pain Free? Yes Yes Wound debrided: Right lower abdomen ( medial ) Wound Grade/Stage: Stage III Type of Debridement: Excisional debridement Anesthesia Used: 4% Lidocaine Solution Depth: Down to and including healthy tissue, in the subcutaneous layer Percentage of wound debrided: 100 Instrument Used: 5mm curette Tissue Removed: Slough and devitalized tissue Severity: Fat Layer Exposed Amount of bleeding with debridement: Mild Bleeding Controlled with: Pressure Patient tolerated procedure well - Additional Wound Wound debrided: Right Lower Abdomen (Lateral ) Wound Grade/Stage: Stage II Type of Debridement: Excisional debridement Anesthesia Used: 4% Lidocaine Solution Depth: Down to and including healthy tissue, in the subcutaneous layer Percentage of wound debrided: 100 Instrument Used: 5mm curette Tissue Removed: Slough and devitalized Severity: Fat Layer Exposed Amount of bleeding with debridement: Mild Bleeding Controlled with: Pressure Patient tolerated procedure: Patient tolerated procedure well Assessment/Plan Active Problems (Last Reviewed 09/24/18 @ 16:48 by Roosevelt Mahan DO) 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 Procedure was well-tolerated. Medial Ulcer with significant slough and culture with Pseudomonas sensitive to Ciprofloxacin. Switch to Santyl to the medial ulcer and continue Fibracol daily with Adaptic over top to lateral ulcer. Strongly advised that she keep surrounding area and pannus dry. Antifungal powder recommended. Use of absorbable clothing (100% cotton materials)also discussed. Advised to avoid layering. Increased protein intake also recommended. I believe she would benefit from HHN to help with ulcer care. Prescription for Ciprofloxacin and Flagyl also given. Advised that they have her pharmacist also run drug drug interactions. Currently on Coumadin. She was advised to check her INR on saturday and Saturday. All her questions were answered and she was advised to call with any further questions or concerns. Follow-up in a week. This note was generated with [email or web address] dictation software. It may contain incorrect words, spelling, and punctuation that were not noted in checking the note before signing.
[2018-10-22 09:39] VITALS: BP 137/71; PULSE 86; RESP 22; TEMP 36.8; BMI 30.2
--- NOTE | 2018-10-22 12:48 | PCM.WC.PN ---
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 Burden is an 80-year-old who was referred to the wound center by her primary care physician due to nonhealing abdominal wall ulcer. This was started about 6 weeks ago. After onset, she was seen by her primary care physician and treated with a 10-day course of Keflex with some improvement noted. She was reevaluated after 3 weeks and subsequently referred here due to nonhealing of the ulcer. She admits to significant moisture in the yeast in her abdominal fold. She states that she tries to keep the area dry and applies plain powder to the area. She also admits to a lot of layering because she stays cold. She denies any significant discharge. She also denies chills or fever. Progress of Wound: Improving. No new concerns at this time. Now has home health 3 days weekly. - Physical Exam Vital Signs Temp Pulse Resp BP 98.2 F 86 22 H 137/71 H 10/22/18 09:39 10/22/18 09:39 10/22/18 09:39 10/22/18 09:39 General: Alert, Oriented x3, Cooperative, No apparent distress HEENT: Atraumatic, Normocephalic Oral: Moist Mucosa Neck: Supple Lungs: Normal air movement Abdomen: Soft, Obese Extremities: No cyanosis Skin: Ulcer/ Wound Wound Measurements and Assessment WC - Nurse 1 - General Ulcer Measurement Start: 10/08/18 11:24 Freq: Status: Active Protocol: Activity Type Activity Date Activity User E-Sign Co-Sign Detail Recorded Client Recorded Date Recorded By Document 10/22/18 09:39 DL [id number] 10/22/18 09:45 DL 10/22/18 09:39 Wound Center Nurse 1 [Ulcer Assessment] #2 Right Lower Abdomen- Medial -Current Size (cm) - Length 1.8 -Current Size (cm) - Width 2.4 -Current Size (cm) - Depth 1.0 -Total Square Cm 4.32 -Photo Taken No -Epithelialization None Present -Tunneling No -Undermining/Tunneling No -Circular Undermining No -Classification - Thickness Full Thickness without Exposed Support Structure -Exudate Amt Medium -Exudate Type Serous -Wound Margin Flat & Intact -Granulation Amt None Present (0 %) -Granulation Quality N/A -Slough/Fibrin Yes -Necrosis Amt Large (67-100%) -Necrotic Tissue Type Adherent Slough -Structure Exposed None/Limited to Skin Breakdown -Texture (Shanita-wound Skin Appearance) Assessed, Scarring -Moisture (Shanita-wound Skin Appearance No Abnormality, ) Assessed -Color (Shanita-wound Skin Appearance) Assessed, Erythema -Temperature (Shanita-wound Skin No Abnormality Appearance) (Pt Warm) -Tenderness on Palpation (Shanita-wound No Skin Appearance) -Ulcer Cleansing Rinsed/ Irrigated with Saline -Foul Odor after Cleansing No -Anesthetic Used 4% Lidocaine Solution #1 Right Lower Abdomen- Lateral -Combined with other wound No -Current Size (cm) - Length 1.0 -Current Size (cm) - Width 2.7 -Current Size (cm) - Depth 0.2 -Total Square Cm 2.70 -Photo Taken No -Epithelialization None Present -Tunneling No -Undermining/Tunneling No -Circular Undermining No -Classification - Thickness Full Thickness without Exposed Support Structure -Exudate Amt Medium -Exudate Type Serous -Wound Margin Flat & Intact -Granulation Amt None Present (0 %) -Granulation Quality N/A -Slough/Fibrin Yes -Necrosis Amt Large (67-100%) -Necrotic Tissue Type Adherent Slough -Structure Exposed None/Limited to Skin Breakdown -Texture (Shanita-wound Skin Appearance) Assessed, Scarring -Moisture (Shanita-wound Skin Appearance No Abnormality, ) Assessed -Color (Shanita-wound Skin Appearance) Assessed, Erythema -Temperature (Shanita-wound Skin No Abnormality Appearance) (Pt Warm) -Tenderness on Palpation (Shanita-wound No Skin Appearance) -Ulcer Cleansing Rinsed/ Irrigated with Saline -Foul Odor after Cleansing No -Anesthetic Used 4% Lidocaine Solution WC - Nurse 2 - General Ulcer CM Notes Start: 10/08/18 11:24 Freq: Status: Active Protocol: Activity Type Activity Date Activity User E-Sign Co-Sign Detail Recorded Client Recorded Date Recorded By Document 10/22/18 10:23 MW [id number] 10/22/18 10:28 MW 10/22/18 10:23 Wound Center Nurse 2 [Procedure/Treatment] #2 Right Lower Abdomen- Medial -Time 10:23 -Correct Patient Yes -Correct Side, Site, Position Yes -Correct Procedure Yes -Procedure Performed Yes -Type of Procedure Debridement -Clinical Debridement Subcutaneous -Post Debridement Size (cm) - Length 1.5 -Post Debridement Size (cm) - Width 2.5 -Post Debridement Size (cm) - Depth 0.5 -Total Square Cm 3.75 -Wound/Ulcer Outcome Not Healed -Ulcer Cleansing Rinsed/ Irrigated with Saline -Foul Odor after Cleansing No -Bioengineered Tissue No -Bleeding Controlled with Pressure -Offloading No -Treatment Response Procedure Tolerated Well #1 Right Lower Abdomen- Lateral -Time 10:23 -Correct Patient Yes -Correct Side, Site, Position Yes -Correct Procedure Yes -Procedure Performed Yes -Type of Procedure Debridement -Clinical Debridement Subcutaneous -Post Debridement Size (cm) - Length 0.7 -Post Debridement Size (cm) - Width 2.5 -Post Debridement Size (cm) - Depth 0.1 -Total Square Cm 1.75 -Wound/Ulcer Outcome Not Healed -Ulcer Cleansing Rinsed/ Irrigated with Saline -Foul Odor after Cleansing No -Bioengineered Tissue No -Bleeding Controlled with Pressure -Offloading No -Treatment Response Procedure Tolerated Well [See Physician Procedure note for Specifics] Pain Scale: 0-10 Numeric [Pain] -Is Patient Pain Free? Yes Musculoskeletal: No Muscle Wasting Neurological: Cranial nerves II-XII grossly intact Psych/Mental Status: Normal Affect Debridement Note Post-Debridement Measurements/Treatment WC - Nurse 2 - General Ulcer CM Notes Start: 10/08/18 11:24 Freq: Status: Active Protocol: Activity Type Activity Date Activity User E-Sign Co-Sign Detail Recorded Client Recorded Date Recorded By Document 10/08/18 12:16 MW [id number] 10/08/18 12:25 MW Document 10/15/18 11:23 MW [id number] 10/15/18 11:29 MW Document 10/22/18 10:23 MW [id number] 10/22/18 10:28 MW 10/08/18 10/15/18 10/22/18 12:16 11:23 10:23 Wound Center Nurse 2 #2 Right Lower Abdomen- Medial -Time 12:17 11:25 10:23 -Correct Patient Yes Yes Yes -Correct Side, Site, Position Yes Yes Yes -Correct Procedure Yes Yes Yes -Procedure Performed Yes Yes Yes -Type of Procedure Debridement Debridement Debridement -Clinical Debridement Subcutaneous Subcutaneous Subcutaneous -Post Debridement Size (cm) - Length 2.0 2.0 1.5 -Post Debridement Size (cm) - Width 2.2 2.6 2.5 -Post Debridement Size (cm) - Depth 0.1 0.4 0.5 -Total Square Cm 4.40 5.20 3.75 -Wound/Ulcer Outcome Not Healed Not Healed Not Healed -Ulcer Cleansing Rinsed/ Rinsed/ Rinsed/ Irrigated with Irrigated with Irrigated with Saline Saline Saline -Foul Odor after Cleansing No No No -Bioengineered Tissue No No No -Bleeding Controlled with Pressure Pressure Pressure -Offloading No No No -Treatment Response Procedure Procedure Procedure Tolerated Well Tolerated Well Tolerated Well #1 Right Lower Abdomen- Lateral -Time 12:17 11:26 10:23 -Correct Patient Yes Yes Yes -Correct Side, Site, Position Yes Yes Yes -Correct Procedure Yes Yes Yes -Procedure Performed Yes Yes Yes -Type of Procedure Debridement Debridement Debridement -Clinical Debridement Subcutaneous Subcutaneous Subcutaneous -Post Debridement Size (cm) - Length 0.7 0.8 0.7 -Post Debridement Size (cm) - Width 2.5 3.0 2.5 -Post Debridement Size (cm) - Depth 0.1 0.1 0.1 -Total Square Cm 1.75 2.40 1.75 -Wound/Ulcer Outcome Not Healed Not Healed Not Healed -Ulcer Cleansing Rinsed/ Rinsed/ Rinsed/ Irrigated with Irrigated with Irrigated with Saline Saline Saline -Foul Odor after Cleansing No No No -Bioengineered Tissue No No No -Bleeding Controlled with Pressure Pressure Pressure -Offloading No No No -Treatment Response Procedure Procedure Procedure Tolerated Well Tolerated Well Tolerated Well Pain Scale: 0-10 Numeric Is Patient Pain Free? Yes Yes Yes Wound debrided: Right lower abdomen ( Medial ) Wound Grade/Stage: Stage III Type of Debridement: Excisional debridement Anesthesia Used: 4% Lidocaine Solution Depth: Down to and including healthy tissue, in the subcutaneous layer Percentage of wound debrided: 100 Instrument Used: 5mm curette Tissue Removed: Slough and devitalized tissue Severity: Fat Layer Exposed Amount of bleeding with debridement: Mild Bleeding Controlled with: Pressure Patient tolerated procedure well - Additional Wound Wound debrided: Right lower abdomen ( lateral ) Wound Grade/Stage: Stage II Type of Debridement: Excisional debridement Anesthesia Used: 4% Lidocaine Solution Depth: Down to and including healthy tissue, in the subcutaneous layer Percentage of wound debrided: 100 Instrument Used: 3mm curette Tissue Removed: Slough and devitalized tissue Severity: Fat Layer Exposed Amount of bleeding with debridement: Mild Bleeding Controlled with: Pressure Patient tolerated procedure: Patient tolerated procedure well Assessment/Plan Active Problems (Last Reviewed 09/24/18 @ 16:48 by Roosevelt Mahan DO) 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 Procedure was well-tolerated. Completed antibiotics. Improvement noted in the past week. Continue Santyl to medial ulcer and Fibracol to lateral. Strongly advised that she keep surrounding area and pannus dry. Antifungal powder recommended. Use of absorbable clothing (100% cotton materials)also discussed. Advised to avoid layering. Increased protein intake also recommended. She will continue with [facility] for wound care at home. All her questions were answered and she was advised to call with any further questions or concerns. Follow-up in 2 weeks. This note was generated with [employer] software. It may contain incorrect words, spelling, and punctuation that were not noted in checking the note before signing.
== END 2018-10-22 23:59 ==
LOC: WC 09:30
PROVIDERS: Family Provider Family Medicine; PCP Family Medicine; Visit Provider Internal Medicine
DX: L98.492 Non-pressure chronic ulcer of skin of other sites with fat layer exposed (principal); Z79.01 Long term (current) use of anticoagulants; Z86.718 Personal history of other venous thrombosis and embolism; E65 Localized adiposity; L30.4 Erythema intertrigo
CPT/HCPCS: 11042; 36415; 85610; 87070; 87075; 87077; 87186; 87205

== ENCOUNTER 2018-11-20 11:00 | Outpatient (RCR) | payer MEDICARE, OTHER, SELFPAY ==
[2018-10-23 01:14] VITALS: BP 137/71; PULSE 86; RESP 22; TEMP 36.8
[2018-11-05 10:49] VITALS: BP 151/79; PULSE 95; RESP 20; TEMP 37.2; BMI 30.2
--- NOTE | 2018-11-05 11:54 | PCM.WC.PN ---
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 Burden is an 80-year-old who was referred to the wound center by her primary care physician due to nonhealing abdominal wall ulcer. This was started about 6 weeks ago. After onset, she was seen by her primary care physician and treated with a 10-day course of Keflex with some improvement noted. She was reevaluated after 3 weeks and subsequently referred here due to nonhealing of the ulcer. She admits to significant moisture in the yeast in her abdominal fold. She states that she tries to keep the area dry and applies plain powder to the area. She also admits to a lot of layering because she stays cold. She denies any significant discharge. She also denies chills or fever. Progress of Wound: No significnat change in the past week. New left lower abdomen. - Physical Exam Vital Signs Temp Pulse Resp BP 98.9 F 95 20 H 151/79 H 11/05/18 10:49 11/05/18 10:49 11/05/18 10:49 11/05/18 10:49 General: Alert, Oriented x3, Cooperative, No apparent distress HEENT: Atraumatic, Normocephalic Oral: Moist Mucosa Neck: Supple Lungs: Normal air movement Abdomen: Obese, Tender Extremities: No cyanosis Skin: Ulcer/ Wound Wound Measurements and Assessment WC - Nurse 1 - General Ulcer Measurement Start: 11/05/18 10:49 Freq: Status: Active Protocol: Activity Type Activity Date Activity User E-Sign Co-Sign Detail Recorded Client Recorded Date Recorded By Document 11/05/18 10:49 DL [id number] 11/05/18 10:54 DL 11/05/18 10:49 Wound Center Nurse 1 [Ulcer Assessment] #2 Right Lower Abdomen- Medial -Current Size (cm) - Length 1.9 -Current Size (cm) - Width 2.9 -Current Size (cm) - Depth 0.9 -Total Square Cm 5.51 -Photo Taken No -Exudate Amt Small -Exudate Type Serosanguineous -Wound Margin Distinct, Outline Attached -Granulation Amt None Present (0 %) -Necrosis Amt Large (67-100%) -Necrotic Tissue Type Adherent Slough -Structure Exposed Fat Layer Exposed -Texture (Shanita-wound Skin Appearance) Scarring -Moisture (Shanita-wound Skin Appearance No Abnormality ) -Color (Shanita-wound Skin Appearance) Rubor -Ulcer Cleansing Rinsed/ Irrigated with Saline -Foul Odor after Cleansing No -Anesthetic Used 5% Lidocaine Gel #1 Right Lower Abdomen- Lateral -Current Size (cm) - Length 0.5 -Current Size (cm) - Width 3.1 -Current Size (cm) - Depth 0.2 -Total Square Cm 1.55 -Photo Taken No -Exudate Amt Small -Exudate Type Serosanguineous -Wound Margin Distinct, Outline Attached -Granulation Amt None Present (0 %) -Necrosis Amt Large (67-100%) -Necrotic Tissue Type Adherent Slough -Structure Exposed N/A -Texture (Shanita-wound Skin Appearance) Scarring -Color (Shanita-wound Skin Appearance) Rubor -Temperature (Shanita-wound Skin No Abnormality Appearance) (Pt Warm) -Tenderness on Palpation (Shanita-wound No Skin Appearance) -Ulcer Cleansing Rinsed/ Irrigated with Saline -Foul Odor after Cleansing No -Anesthetic Used 5% Lidocaine Gel WC - Nurse 2 - General Ulcer CM Notes Start: 11/05/18 10:49 Freq: Status: Active Protocol: Activity Type Activity Date Activity User E-Sign Co-Sign Detail Recorded Client Recorded Date Recorded By Document 11/05/18 11:19 ROMI [id number] 11/05/18 11:30 ROMI 11/05/18 11:19 Wound Center Nurse 2 [Procedure/Treatment] 3-left side abdomen -Time 11:23 -Correct Patient Yes -Correct Side, Site, Position Yes -Correct Procedure Yes -Procedure Performed Yes -Type of Procedure Debridement -Clinical Debridement Subcutaneous -Post Debridement Size (cm) - Length 1.2 -Post Debridement Size (cm) - Width 2 -Post Debridement Size (cm) - Depth 0.1 -Total Square Cm 2.4 -Wound/Ulcer Outcome Not Healed -Ulcer Cleansing Rinsed/ Irrigated with Saline -Foul Odor after Cleansing No -Bioengineered Tissue No -Bleeding Controlled with Pressure -Offloading No -Treatment Response Procedure Tolerated Well #2 Right Lower Abdomen- Medial -Time 11:24 -Correct Patient Yes -Correct Side, Site, Position Yes -Correct Procedure Yes -Procedure Performed Yes -Type of Procedure Debridement -Clinical Debridement Subcutaneous -Post Debridement Size (cm) - Length 1.2 -Post Debridement Size (cm) - Width 3 -Post Debridement Size (cm) - Depth 0.5 -Total Square Cm 3.6 -Wound/Ulcer Outcome Not Healed -Ulcer Cleansing Rinsed/ Irrigated with Saline -Foul Odor after Cleansing No -Bioengineered Tissue No -Bleeding Controlled with Pressure -Offloading No -Treatment Response Procedure Tolerated Well #1 Right Lower Abdomen- Lateral -Time 11:23 -Correct Patient Yes -Correct Side, Site, Position Yes -Correct Procedure Yes -Procedure Performed Yes -Type of Procedure Debridement -Clinical Debridement Subcutaneous -Post Debridement Size (cm) - Length 0.6 -Post Debridement Size (cm) - Width 2.4 -Post Debridement Size (cm) - Depth 0.1 -Total Square Cm 1.44 -Wound/Ulcer Outcome Not Healed -Ulcer Cleansing Rinsed/ Irrigated with Saline -Foul Odor after Cleansing No -Bioengineered Tissue No -Bleeding Controlled with Pressure -Offloading No -Treatment Response Procedure Tolerated Well [See Physician Procedure note for Specifics] Pain Scale: 0-10 Numeric [Pain] -Is Patient Pain Free? Yes Musculoskeletal: No Muscle Wasting Neurological: Cranial nerves II-XII grossly intact Psych/Mental Status: Normal Affect Debridement Note Post-Debridement Measurements/Treatment WC - Nurse 2 - General Ulcer CM Notes Start: 11/05/18 10:49 Freq: Status: Active Protocol: Activity Type Activity Date Activity User E-Sign Co-Sign Detail Recorded Client Recorded Date Recorded By Document 11/05/18 11:19 ROMI [id number] 11/05/18 11:30 ROMI 11/05/18 11:19 Wound Center Nurse 2 3-left side abdomen -Time 11:23 -Correct Patient Yes -Correct Side, Site, Position Yes -Correct Procedure Yes -Procedure Performed Yes -Type of Procedure Debridement -Clinical Debridement Subcutaneous -Post Debridement Size (cm) - Length 1.2 -Post Debridement Size (cm) - Width 2 -Post Debridement Size (cm) - Depth 0.1 -Total Square Cm 2.4 -Wound/Ulcer Outcome Not Healed -Ulcer Cleansing Rinsed/ Irrigated with Saline -Foul Odor after Cleansing No -Bioengineered Tissue No -Bleeding Controlled with Pressure -Offloading No -Treatment Response Procedure Tolerated Well #2 Right Lower Abdomen- Medial -Time 11:24 -Correct Patient Yes -Correct Side, Site, Position Yes -Correct Procedure Yes -Procedure Performed Yes -Type of Procedure Debridement -Clinical Debridement Subcutaneous -Post Debridement Size (cm) - Length 1.2 -Post Debridement Size (cm) - Width 3 -Post Debridement Size (cm) - Depth 0.5 -Total Square Cm 3.6 -Wound/Ulcer Outcome Not Healed -Ulcer Cleansing Rinsed/ Irrigated with Saline -Foul Odor after Cleansing No -Bioengineered Tissue No -Bleeding Controlled with Pressure -Offloading No -Treatment Response Procedure Tolerated Well #1 Right Lower Abdomen- Lateral -Time 11:23 -Correct Patient Yes -Correct Side, Site, Position Yes -Correct Procedure Yes -Procedure Performed Yes -Type of Procedure Debridement -Clinical Debridement Subcutaneous -Post Debridement Size (cm) - Length 0.6 -Post Debridement Size (cm) - Width 2.4 -Post Debridement Size (cm) - Depth 0.1 -Total Square Cm 1.44 -Wound/Ulcer Outcome Not Healed -Ulcer Cleansing Rinsed/ Irrigated with Saline -Foul Odor after Cleansing No -Bioengineered Tissue No -Bleeding Controlled with Pressure -Offloading No -Treatment Response Procedure Tolerated Well Pain Scale: 0-10 Numeric Is Patient Pain Free? Yes Wound debrided: Lower abdomen ( Left ) Wound Grade/Stage: Stage II Type of Debridement: Excisional debridement Anesthesia Used: 4% Lidocaine Solution Depth: Down to and including healthy tissue, in the subcutaneous layer Percentage of wound debrided: 100 Instrument Used: #15 blade Tissue Removed: Necrotic and devitalized tissue Severity: Fat Layer Exposed Amount of bleeding with debridement: Mild Bleeding Controlled with: Pressure Patient tolerated procedure well - Additional Wound Wound debrided: Lower abdomen ( Right Medial ) Wound Grade/Stage: Stage III Type of Debridement: Excisional debridement Anesthesia Used: 4% Lidocaine Solution Depth: Down to and including healthy tissue, in the subcutaneous layer Percentage of wound debrided: 100 Instrument Used: 7mm curette Tissue Removed: Slough and devitalized tissue Severity: Fat Layer Exposed Amount of bleeding with debridement: Mild Bleeding Controlled with: Pressure Patient tolerated procedure: Patient tolerated procedure well - Additional Wound Wound debrided: Right lower abdomen ( Lateral ) Wound Grade/Stage: Stage II Type of Debridement: Excisional debridement Anesthesia Used: 4% Lidocaine Solution Depth: Down to and including healthy tissue Percentage of wound debrided: 100 Instrument Used: 7mm curette Tissue Removed: Slough and devitalized tissue Severity: Fat Layer Exposed Amount of bleeding with debridement: Mild Bleeding Controlled with: Pressure Patient tolerated procedure: Patient tolerated procedure well Assessment/Plan Active Problems (Last Reviewed 09/24/18 @ 16:48 by Roosevelt Mahan DO) 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 Debridement done as documented above. Procedure was well-tolerated. No significant improvement in the past week. Continue Santyl to right sided medial ulcer and left abdominal ulcer. Fibracol to right sided lateral. Snap Vac also over the medial ulcer. Strongly advised that she keep surrounding area and pannus dry. Antifungal powder recommended. Use of absorbable clothing (100% cotton materials)also discussed. Advised to avoid layering. Increased protein intake also recommended. She will continue with [facility] for wound care at home. All her questions were answered and she was advised to call with any further questions or concerns. Follow-up on saturday for a nurse visit and with me in 1 week. This note was generated with [employer] dictation software. It may contain incorrect words, spelling, and punctuation that were not noted in checking the note before signing.
[2018-11-07 16:19] VITALS: BP 140/60; PULSE 86; RESP 18; TEMP 36.2; BMI 30.2
[2018-11-12 12:31] VITALS: BP 148/75; PULSE 90; RESP 18; TEMP 36.3; BMI 30.2
--- NOTE | 2018-11-12 19:32 | PN.PCM_ITS ---
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 Burden is an 80-year-old who was referred to the wound center by her primary care physician due to nonhealing abdominal wall ulcer. This was started about 6 weeks ago. After onset, she was seen by her primary care physician and treated with a 10-day course of Keflex with some improvement noted. She was reevaluated after 3 weeks and subsequently referred here due to nonhealing of the ulcer. She admits to significant moisture in the yeast in her abdominal fold. She states that she tries to keep the area dry and applies plain powder to the area. She also admits to a lot of layering because she stays cold. She denies any significant discharge. She also denies chills or fever. Progress of Wound: Reports worsening pain in her abdominal area over the last 3 days. Denies chills, fever otherwise feeling of unwell. - Physical Exam Vital Signs Temp Pulse Resp BP 97.3 F L 90 18 148/75 H 11/12/18 12:31 11/12/18 12:31 11/12/18 12:31 11/12/18 12:31 General: Alert, Oriented x3, Cooperative, No apparent distress HEENT: Atraumatic, Normocephalic Oral: Moist Mucosa Neck: Supple Lungs: Normal air movement Abdomen: Obese, Tender Skin: Ulcer/ Wound Wound Measurements and Assessment WC - Nurse 1 - General Ulcer Measurement Start: 11/05/18 10:49 Freq: Status: Active Protocol: Activity Type Activity Date Activity User E-Sign Co-Sign Detail Recorded Client Recorded Date Recorded By Document 11/12/18 12:31 DL [id number] 11/12/18 12:45 DL 11/12/18 12:31 Wound Center Nurse 1 [Ulcer Assessment] #4 R Lat ABD inf -Current Size (cm) - Length 1.4 -Current Size (cm) - Width 2.1 -Current Size (cm) - Depth 0.1 -Total Square Cm 2.94 -Photo Taken No -Exudate Amt Small -Exudate Type Serosanguineous -Wound Margin Distinct, Outline Attached -Granulation Amt Large (67-100%) -Granulation Quality Pale,[place] -Necrosis Amt None Present (0 %) -Structure Exposed N/A -Texture (Shanita-wound Skin Appearance) Scarring -Moisture (Shanita-wound Skin Appearance Dry/Scaly ) -Color (Shanita-wound Skin Appearance) Rubor -Temperature (Shanita-wound Skin No Abnormality Appearance) (Pt Warm) -Tenderness on Palpation (Shanita-wound No Skin Appearance) -Ulcer Cleansing Rinsed/ Irrigated with Saline -Foul Odor after Cleansing No -Anesthetic Used 5% Lidocaine Gel 3-left side abdomen -Current Size (cm) - Length 1.6 -Current Size (cm) - Width 1.7 -Current Size (cm) - Depth 0.1 -Total Square Cm 2.72 -Photo Taken No -Exudate Type Serosanguineous -Wound Margin Distinct, Outline Attached -Granulation Amt Small (1-33%) -Granulation Quality [place] -Necrosis Amt Large (67-100%) -Necrotic Tissue Type Adherent Slough -Structure Exposed N/A -Texture (Shanita-wound Skin Appearance) Scarring -Moisture (Shanita-wound Skin Appearance No Abnormality ) -Color (Shanita-wound Skin Appearance) Rubor -Temperature (Shanita-wound Skin No Abnormality Appearance) (Pt Warm) -Tenderness on Palpation (Shanita-wound No Skin Appearance) -Ulcer Cleansing Rinsed/ Irrigated with Saline -Foul Odor after Cleansing No -Anesthetic Used 5% Lidocaine Gel #2 Right Lower Abdomen- Medial -Current Size (cm) - Length 2 -Current Size (cm) - Width 3.8 -Current Size (cm) - Depth 0.6 -Total Square Cm 7.6 -Photo Taken No -Wound Margin Distinct, Outline Attached -Granulation Amt Small (1-33%) -Granulation Quality [place],Red -Necrosis Amt Large (67-100%) -Necrotic Tissue Type Adherent Slough -Structure Exposed N/A -Texture (Shanita-wound Skin Appearance) Scarring -Moisture (Shanita-wound Skin Appearance No Abnormality ) -Color (Shanita-wound Skin Appearance) Erythema,Rubor -Temperature (Shanita-wound Skin No Abnormality Appearance) (Pt Warm) -Tenderness on Palpation (Shanita-wound No Skin Appearance) -Ulcer Cleansing Rinsed/ Irrigated with Saline #1 Right Lower Abdomen- Lateral -Current Size (cm) - Length 0.7 -Current Size (cm) - Width 3 -Current Size (cm) - Depth 0.1 -Total Square Cm 2.1 -Photo Taken No -Exudate Amt Small -Exudate Type Serosanguineous -Wound Margin Distinct, Outline Attached -Granulation Amt Medium (34-66%) -Granulation Quality [place] -Necrosis Amt Medium (34-66%) -Necrotic Tissue Type Adherent Slough -Structure Exposed N/A -Texture (Shanita-wound Skin Appearance) Scarring -Moisture (Shanita-wound Skin Appearance No Abnormality ) -Color (Shanita-wound Skin Appearance) Rubor -Temperature (Shanita-wound Skin No Abnormality Appearance) (Pt Warm) -Tenderness on Palpation (Shanita-wound No Skin Appearance) -Ulcer Cleansing Rinsed/ Irrigated with Saline -Foul Odor after Cleansing No -Anesthetic Used 5% Lidocaine Gel WC - Nurse 2 - General Ulcer CM Notes Start: 11/05/18 10:49 Freq: Status: Active Protocol: Activity Type Activity Date Activity User E-Sign Co-Sign Detail Recorded Client Recorded Date Recorded By Document 11/12/18 13:27 MW [id number] 11/12/18 13:36 MW 11/12/18 13:27 Wound Center Nurse 2 [Procedure/Treatment] #4 R Lat ABD inf -Time 13:30 -Correct Patient Yes -Correct Side, Site, Position Yes -Correct Procedure Yes -Procedure Performed Yes -Type of Procedure Debridement -Clinical Debridement Subcutaneous -Post Debridement Size (cm) - Length 0.1 -Post Debridement Size (cm) - Width 0.1 -Post Debridement Size (cm) - Depth 0.1 -Total Square Cm 0.01 -Wound/Ulcer Outcome Not Healed -Ulcer Cleansing Rinsed/ Irrigated with Saline -Foul Odor after Cleansing No -Bioengineered Tissue No -Bleeding Controlled with Pressure -Offloading No -Treatment Response Procedure Tolerated Well 3-left side abdomen -Time 13:30 -Correct Patient Yes -Correct Side, Site, Position Yes -Correct Procedure Yes -Procedure Performed Yes -Type of Procedure Debridement -Clinical Debridement Subcutaneous -Post Debridement Size (cm) - Length 1.9 -Post Debridement Size (cm) - Width 2.5 -Post Debridement Size (cm) - Depth 0.1 -Total Square Cm 4.75 -Wound/Ulcer Outcome Not Healed -Ulcer Cleansing Rinsed/ Irrigated with Saline -Foul Odor after Cleansing No -Bioengineered Tissue No -Bleeding Controlled with Pressure -Offloading No -Treatment Response Procedure Tolerated Well #2 Right Lower Abdomen- Medial -Time 13:31 -Correct Patient Yes -Correct Side, Site, Position Yes -Correct Procedure Yes -Procedure Performed Yes -Type of Procedure Debridement -Clinical Debridement Subcutaneous -Post Debridement Size (cm) - Length 2.0 -Post Debridement Size (cm) - Width 3.7 -Post Debridement Size (cm) - Depth 0.4 -Total Square Cm 7.40 -Wound/Ulcer Outcome Not Healed -Ulcer Cleansing Rinsed/ Irrigated with Saline -Foul Odor after Cleansing No -Bioengineered Tissue No -Bleeding Controlled with Pressure -Offloading No -Treatment Response Procedure Tolerated Well #1 Right Lower Abdomen- Lateral -Time 13:31 -Correct Patient Yes -Correct Side, Site, Position Yes -Correct Procedure Yes -Procedure Performed Yes -Type of Procedure Debridement -Clinical Debridement Subcutaneous -Post Debridement Size (cm) - Length 0.8 -Post Debridement Size (cm) - Width 3.0 -Post Debridement Size (cm) - Depth 0.4 -Total Square Cm 2.40 -Wound/Ulcer Outcome Not Healed -Ulcer Cleansing Rinsed/ Irrigated with Saline -Foul Odor after Cleansing No -Bioengineered Tissue No -Bleeding Controlled with Pressure -Offloading No -Treatment Response Procedure Tolerated Well [See Physician Procedure note for Specifics] Pain Scale: 0-10 Numeric [Pain] -Is Patient Pain Free? Yes Neurological: Cranial nerves II-XII grossly intact Psych/Mental Status: Normal Affect Debridement Note Post-Debridement Measurements/Treatment WC - Nurse 2 - General Ulcer CM Notes Start: 11/05/18 10:49 Freq: Status: Active Protocol: Activity Type Activity Date Activity User E-Sign Co-Sign Detail Recorded Client Recorded Date Recorded By Document 11/05/18 11:19 JF [id number] 11/05/18 11:30 JF Document 11/12/18 13:27 MW [id number] 11/12/18 13:36 MW 11/05/18 11/12/18 11:19 13:27 Wound Center Nurse 2 #4 R Lat ABD inf -Time 13:30 -Correct Patient Yes -Correct Side, Site, Position Yes -Correct Procedure Yes -Procedure Performed Yes -Type of Procedure Debridement -Clinical Debridement Subcutaneous -Post Debridement Size (cm) - Length 0.1 -Post Debridement Size (cm) - Width 0.1 -Post Debridement Size (cm) - Depth 0.1 -Total Square Cm 0.01 -Wound/Ulcer Outcome Not Healed -Ulcer Cleansing Rinsed/ Irrigated with Saline -Foul Odor after Cleansing No -Bioengineered Tissue No -Bleeding Controlled with Pressure -Offloading No -Treatment Response Procedure Tolerated Well 3-left side abdomen -Time 11:23 13:30 -Correct Patient Yes Yes -Correct Side, Site, Position Yes Yes -Correct Procedure Yes Yes -Procedure Performed Yes Yes -Type of Procedure Debridement Debridement -Clinical Debridement Subcutaneous Subcutaneous -Post Debridement Size (cm) - Length 1.2 1.9 -Post Debridement Size (cm) - Width 2 2.5 -Post Debridement Size (cm) - Depth 0.1 0.1 -Total Square Cm 2.4 4.75 -Wound/Ulcer Outcome Not Healed Not Healed -Ulcer Cleansing Rinsed/ Rinsed/ Irrigated with Irrigated with Saline Saline -Foul Odor after Cleansing No No -Bioengineered Tissue No No -Bleeding Controlled with Pressure Pressure -Offloading No No -Treatment Response Procedure Procedure Tolerated Well Tolerated Well #2 Right Lower Abdomen- Medial -Time 11:24 13:31 -Correct Patient Yes Yes -Correct Side, Site, Position Yes Yes -Correct Procedure Yes Yes -Procedure Performed Yes Yes -Type of Procedure Debridement Debridement -Clinical Debridement Subcutaneous Subcutaneous -Post Debridement Size (cm) - Length 1.2 2.0 -Post Debridement Size (cm) - Width 3 3.7 -Post Debridement Size (cm) - Depth 0.5 0.4 -Total Square Cm 3.6 7.40 -Wound/Ulcer Outcome Not Healed Not Healed -Ulcer Cleansing Rinsed/ Rinsed/ Irrigated with Irrigated with Saline Saline -Foul Odor after Cleansing No No -Bioengineered Tissue No No -Bleeding Controlled with Pressure Pressure -Offloading No No -Treatment Response Procedure Procedure Tolerated Well Tolerated Well #1 Right Lower Abdomen- Lateral -Time 11:23 13:31 -Correct Patient Yes Yes -Correct Side, Site, Position Yes Yes -Correct Procedure Yes Yes -Procedure Performed Yes Yes -Type of Procedure Debridement Debridement -Clinical Debridement Subcutaneous Subcutaneous -Post Debridement Size (cm) - Length 0.6 0.8 -Post Debridement Size (cm) - Width 2.4 3.0 -Post Debridement Size (cm) - Depth 0.1 0.4 -Total Square Cm 1.44 2.40 -Wound/Ulcer Outcome Not Healed Not Healed -Ulcer Cleansing Rinsed/ Rinsed/ Irrigated with Irrigated with Saline Saline -Foul Odor after Cleansing No No -Bioengineered Tissue No No -Bleeding Controlled with Pressure Pressure -Offloading No No -Treatment Response Procedure Procedure Tolerated Well Tolerated Well Pain Scale: 0-10 Numeric Is Patient Pain Free? Yes Yes Wound debrided: Right medial abdomen Type of Debridement: Excisional debridement Anesthesia Used: 4% Lidocaine Solution Depth: Down to and including healthy tissue, in the subcutaneous layer Percentage of wound debrided: 100 Instrument Used: 7mm curette Tissue Removed: Slough and devitalized tissue Severity: Fat Layer Exposed Amount of bleeding with debridement: Mild Bleeding Controlled with: Pressure Patient tolerated procedure well - Additional Wound Wound debrided: Right lateral abdomen Type of Debridement: Excisional debridement Anesthesia Used: 4% Lidocaine Solution Depth: Down to and including healthy tissue, in the subcutaneous layer Percentage of wound debrided: 100 Instrument Used: 3mm curette Tissue Removed: Slough and-Devitalized tissue Severity: Fat Layer Exposed Amount of bleeding with debridement: Mild Bleeding Controlled with: Pressure Patient tolerated procedure: Patient tolerated procedure well - Additional Wound Wound debrided: Left lower abdomen Type of Debridement: Excisional debridement Anesthesia Used: 4% Lidocaine Solution Depth: Down to and including healthy tissue Percentage of wound debrided: 100 Instrument Used: 3mm curette Tissue Removed: Devitalized tissue Severity: Fat Layer Exposed Amount of bleeding with debridement: Mild Bleeding Controlled with: Pressure Assessment/Plan Active Problems (Last Reviewed 09/24/18 @ 16:48 by Roosevelt Mahan DO) 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 Debridement done as documented above. Procedure was well-tolerated. Cultures taken from the right medial abdomen. For now, continue Santyl to right sided medial ulcer and left abdominal ulcer. Fibracol to right sided lateral and snap Vac also over the right medial ulcer. Strongly advised that she keep surrounding area and pannus dry. Antifungal powder recommended. Use of absorbable clothing (100% cotton materials)also discussed. Advised to avoid layering. Increased protein intake also recommended. She will continue with N for wound care at home. All her questions were answered and she was advised to call with any further questions or concerns. Follow-up on saturday for a nurse visit and with me in 1 week. This note was generated with [employer] dictation software. It may contain incorrect words, spelling, and punctuation that were not noted in checking the note before signing.
[2018-11-18 16:23] VITALS: BP 133/81; PULSE 87; RESP 18; TEMP 36.1
[2018-11-20 10:52] VITALS: BP 135/66; PULSE 92; RESP 20; TEMP 36.9
--- NOTE | 2018-11-20 12:49 | PCM.WC.PN ---
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 Burden is an 80-year-old who was referred to the wound center by her primary care physician due to nonhealing abdominal wall ulcer. This was started about 6 weeks ago. After onset, she was seen by her primary care physician and treated with a 10-day course of Keflex with some improvement noted. She was reevaluated after 3 weeks and subsequently referred here due to nonhealing of the ulcer. She admits to significant moisture in the yeast in her abdominal fold. She states that she tries to keep the area dry and applies plain powder to the area. She also admits to a lot of layering because she stays cold. She denies any significant discharge. She also denies chills or fever. Progress of Wound: No new concerns at this time. Still reports abdominal pain. Right and left lateral ulcers with worsening. Right medial ulcer is improving. - Physical Exam Vital Signs Temp Pulse Resp BP 98.5 F 92 20 H 135/66 H 11/20/18 10:52 11/20/18 10:52 11/20/18 10:52 11/20/18 10:52 General: Alert, Oriented x3, Cooperative, No apparent distress HEENT: Atraumatic, Normocephalic Oral: Moist Mucosa Neck: Supple Abdomen: Soft, Obese Extremities: No cyanosis Skin: Ulcer/ Wound Wound Measurements and Assessment WC - Nurse 1 - General Ulcer Measurement Start: 11/05/18 10:49 Freq: Status: Active Protocol: Activity Type Activity Date Activity User E-Sign Co-Sign Detail Recorded Client Recorded Date Recorded By Document 11/18/18 16:23 DL [id number] 11/18/18 16:44 DL Document 11/20/18 10:52 DL [id number] 11/20/18 11:01 DL 11/18/18 11/20/18 16:23 10:52 Wound Center Nurse 1 [Ulcer Assessment] #4 R Lat ABD inf -Current Size (cm) - Length 0.5 -Current Size (cm) - Width 0.6 -Current Size (cm) - Depth 0.1 -Total Square Cm 0.30 -Photo Taken No -Exudate Amt None Present -Wound Margin Flat & Intact -Granulation Amt Small (1-33%) -Granulation Quality [place] -Necrosis Amt Small (1-33%) -Necrotic Tissue Type Adherent Slough -Structure Exposed N/A -Texture (Shanita-wound Skin Appearance) Scarring -Moisture (Shanita-wound Skin Appearance No Abnormality ) -Color (Shanita-wound Skin Appearance) Erythema -Temperature (Shanita-wound Skin No Abnormality Appearance) (Pt Warm) -Tenderness on Palpation (Shanita-wound Yes Skin Appearance) -Ulcer Cleansing Wound Cleanser -Foul Odor after Cleansing No -Anesthetic Used 5% Lidocaine Gel 3-left side abdomen -Current Size (cm) - Length 2 -Current Size (cm) - Width 2.8 -Current Size (cm) - Depth 0.2 -Total Square Cm 5.6 -Photo Taken No -Exudate Amt Small -Exudate Type Serosanguineous -Wound Margin Distinct, Outline Attached -Granulation Amt None Present (0 %) -Necrosis Amt Large (67-100%) -Necrotic Tissue Type Adherent Slough -Structure Exposed N/A -Texture (Shanita-wound Skin Appearance) Scarring -Moisture (Shanita-wound Skin Appearance No Abnormality ) -Color (Shanita-wound Skin Appearance) Erythema -Temperature (Shanita-wound Skin No Abnormality Appearance) (Pt Warm) -Tenderness on Palpation (Shanita-wound Yes Skin Appearance) -Ulcer Cleansing Wound Cleanser -Foul Odor after Cleansing No -Anesthetic Used 5% Lidocaine Gel #2 Right Lower Abdomen- Medial -Current Size (cm) - Length 2 -Current Size (cm) - Width 3.2 -Current Size (cm) - Depth 1.1 -Total Square Cm 6.4 -Photo Taken No -Exudate Amt Small Small -Exudate Type Serosanguineous Serosanguineous -Wound Margin Distinct, Distinct, Outline Outline Attached Attached -Granulation Amt Large (67-100%) -Necrosis Amt Medium (34-66%) -Necrotic Tissue Type Adherent Slough -Structure Exposed N/A -Texture (Shanita-wound Skin Appearance) No Abnormality Scarring -Moisture (Shanita-wound Skin Appearance No Abnormality No Abnormality ) -Color (Shanita-wound Skin Appearance) No Abnormality Erythema -Temperature (Shanita-wound Skin No Abnormality No Abnormality Appearance) (Pt Warm) (Pt Warm) -Tenderness on Palpation (Shanita-wound No Yes Skin Appearance) -Ulcer Cleansing Wound Cleanser Wound Cleanser -Foul Odor after Cleansing No No -Anesthetic Used 5% Lidocaine Gel #1 Right Lower Abdomen- Lateral -Current Size (cm) - Length 0.6 -Current Size (cm) - Width 3 -Current Size (cm) - Depth 0.2 -Total Square Cm 1.8 -Photo Taken No -Exudate Amt Small -Exudate Type Serosanguineous -Wound Margin Distinct, Outline Attached -Granulation Amt Medium (34-66%) -Granulation Quality Red -Necrosis Amt Medium (34-66%) -Necrotic Tissue Type Adherent Slough -Structure Exposed N/A -Texture (Shanita-wound Skin Appearance) Scarring -Moisture (Shanita-wound Skin Appearance No Abnormality ) -Color (Shanita-wound Skin Appearance) Erythema -Temperature (Shanita-wound Skin No Abnormality Appearance) (Pt Warm) -Tenderness on Palpation (Shanita-wound No Skin Appearance) -Ulcer Cleansing Wound Cleanser -Foul Odor after Cleansing No -Anesthetic Used 5% Lidocaine Gel WC - Nurse 2 - General Ulcer CM Notes Start: 11/05/18 10:49 Freq: Status: Active Protocol: Activity Type Activity Date Activity User E-Sign Co-Sign Detail Recorded Client Recorded Date Recorded By Document 11/20/18 11:11 MW [id number] 11/20/18 11:22 MW 11/20/18 11:11 Wound Center Nurse 2 [Procedure/Treatment] #4 R Lat ABD inf -Time 11:14 -Correct Patient Yes -Correct Side, Site, Position Yes -Correct Procedure Yes -Procedure Performed No -Post Debridement Size (cm) - Length 0.1 -Post Debridement Size (cm) - Width 0.1 -Post Debridement Size (cm) - Depth 0.1 -Total Square Cm 0.01 -Wound/Ulcer Outcome Not Healed -Ulcer Cleansing Rinsed/ Irrigated with Saline -Foul Odor after Cleansing No -Bioengineered Tissue No -Bleeding Controlled with Pressure -Offloading No -Treatment Response Procedure Tolerated Well 3-left side abdomen -Time 11:13 -Correct Patient Yes -Correct Side, Site, Position Yes -Correct Procedure Yes -Procedure Performed Yes -Type of Procedure Debridement -Clinical Debridement Subcutaneous -Post Debridement Size (cm) - Length 2.2 -Post Debridement Size (cm) - Width 3.1 -Post Debridement Size (cm) - Depth 0.1 -Total Square Cm 6.82 -Wound/Ulcer Outcome Not Healed -Ulcer Cleansing Rinsed/ Irrigated with Saline -Foul Odor after Cleansing No -Bioengineered Tissue No -Bleeding Controlled with Pressure -Offloading No -Treatment Response Procedure Tolerated Well #2 Right Lower Abdomen- Medial -Time 11:13 -Correct Patient Yes -Correct Side, Site, Position Yes -Correct Procedure Yes -Procedure Performed Yes -Type of Procedure Debridement -Clinical Debridement Subcutaneous -Post Debridement Size (cm) - Length 1.8 -Post Debridement Size (cm) - Width 3.3 -Post Debridement Size (cm) - Depth 0.8 -Total Square Cm 5.94 -Wound/Ulcer Outcome Not Healed -Ulcer Cleansing Rinsed/ Irrigated with Saline -Foul Odor after Cleansing No -Bioengineered Tissue No -Bleeding Controlled with Pressure -Offloading No -Treatment Response Procedure Tolerated Well #1 Right Lower Abdomen- Lateral -Time 11:11 -Correct Patient Yes -Correct Side, Site, Position Yes -Correct Procedure Yes -Procedure Performed Yes -Type of Procedure Debridement -Clinical Debridement Subcutaneous -Post Debridement Size (cm) - Length 0.8 -Post Debridement Size (cm) - Width 3.2 -Post Debridement Size (cm) - Depth 0.1 -Total Square Cm 2.56 -Wound/Ulcer Outcome Not Healed -Ulcer Cleansing Rinsed/ Irrigated with Saline -Foul Odor after Cleansing No -Bioengineered Tissue No -Bleeding Controlled with Pressure -Offloading No -Treatment Response Procedure Tolerated Well [See Physician Procedure note for Specifics] Pain Scale: 0-10 Numeric [Pain] -Is Patient Pain Free? Yes Musculoskeletal: No Muscle Wasting Neurological: Cranial nerves II-XII grossly intact Psych/Mental Status: Normal Affect Debridement Note Post-Debridement Measurements/Treatment WC - Nurse 2 - General Ulcer CM Notes Start: 11/05/18 10:49 Freq: Status: Active Protocol: Activity Type Activity Date Activity User E-Sign Co-Sign Detail Recorded Client Recorded Date Recorded By Document 08/14/19 11:19 [id number] 11/05/18 11:30 JF Document 11/12/18 13:27 MW [id number] 11/12/18 13:36 MW Document 11/20/18 11:11 MW [id number] 11/20/18 11:22 MW 11/05/18 11/12/18 11/20/18 11:19 13:27 11:11 Wound Center Nurse 2 #4 R Lat ABD inf -Time 13:30 11:14 -Correct Patient Yes Yes -Correct Side, Site, Position Yes Yes -Correct Procedure Yes Yes -Procedure Performed Yes No -Type of Procedure Debridement -Clinical Debridement Subcutaneous -Post Debridement Size (cm) - Length 0.1 0.1 -Post Debridement Size (cm) - Width 0.1 0.1 -Post Debridement Size (cm) - Depth 0.1 0.1 -Total Square Cm 0.01 0.01 -Wound/Ulcer Outcome Not Healed Not Healed -Ulcer Cleansing Rinsed/ Rinsed/ Irrigated with Irrigated with Saline Saline -Foul Odor after Cleansing No No -Bioengineered Tissue No No -Bleeding Controlled with Pressure Pressure -Offloading No No -Treatment Response Procedure Procedure Tolerated Well Tolerated Well 3-left side abdomen -Time 11:23 13:30 11:13 -Correct Patient Yes Yes Yes -Correct Side, Site, Position Yes Yes Yes -Correct Procedure Yes Yes Yes -Procedure Performed Yes Yes Yes -Type of Procedure Debridement Debridement Debridement -Clinical Debridement Subcutaneous Subcutaneous Subcutaneous -Post Debridement Size (cm) - Length 1.2 1.9 2.2 -Post Debridement Size (cm) - Width 2 2.5 3.1 -Post Debridement Size (cm) - Depth 0.1 0.1 0.1 -Total Square Cm 2.4 4.75 6.82 -Wound/Ulcer Outcome Not Healed Not Healed Not Healed -Ulcer Cleansing Rinsed/ Rinsed/ Rinsed/ Irrigated with Irrigated with Irrigated with Saline Saline Saline -Foul Odor after Cleansing No No No -Bioengineered Tissue No No No -Bleeding Controlled with Pressure Pressure Pressure -Offloading No No No -Treatment Response Procedure Procedure Procedure Tolerated Well Tolerated Well Tolerated Well #2 Right Lower Abdomen- Medial -Time 11:24 13:31 11:13 -Correct Patient Yes Yes Yes -Correct Side, Site, Position Yes Yes Yes -Correct Procedure Yes Yes Yes -Procedure Performed Yes Yes Yes -Type of Procedure Debridement Debridement Debridement -Clinical Debridement Subcutaneous Subcutaneous Subcutaneous -Post Debridement Size (cm) - Length 1.2 2.0 1.8 -Post Debridement Size (cm) - Width 3 3.7 3.3 -Post Debridement Size (cm) - Depth 0.5 0.4 0.8 -Total Square Cm 3.6 7.40 5.94 -Wound/Ulcer Outcome Not Healed Not Healed Not Healed -Ulcer Cleansing Rinsed/ Rinsed/ Rinsed/ Irrigated with Irrigated with Irrigated with Saline Saline Saline -Foul Odor after Cleansing No No No -Bioengineered Tissue No No No -Bleeding Controlled with Pressure Pressure Pressure -Offloading No No No -Treatment Response Procedure Procedure Procedure Tolerated Well Tolerated Well Tolerated Well #1 Right Lower Abdomen- Lateral -Time 11:23 13:31 11:11 -Correct Patient Yes Yes Yes -Correct Side, Site, Position Yes Yes Yes -Correct Procedure Yes Yes Yes -Procedure Performed Yes Yes Yes -Type of Procedure Debridement Debridement Debridement -Clinical Debridement Subcutaneous Subcutaneous Subcutaneous -Post Debridement Size (cm) - Length 0.6 0.8 0.8 -Post Debridement Size (cm) - Width 2.4 3.0 3.2 -Post Debridement Size (cm) - Depth 0.1 0.4 0.1 -Total Square Cm 1.44 2.40 2.56 -Wound/Ulcer Outcome Not Healed Not Healed Not Healed -Ulcer Cleansing Rinsed/ Rinsed/ Rinsed/ Irrigated with Irrigated with Irrigated with Saline Saline Saline -Foul Odor after Cleansing No No No -Bioengineered Tissue No No No -Bleeding Controlled with Pressure Pressure Pressure -Offloading No No No -Treatment Response Procedure Procedure Procedure Tolerated Well Tolerated Well Tolerated Well Pain Scale: 0-10 Numeric Is Patient Pain Free? Yes Yes Yes Wound debrided: Right lateral Type of Debridement: Excisional debridement Anesthesia Used: 4% Lidocaine Solution Depth: Down to and including healthy tissue, in the subcutaneous layer Percentage of wound debrided: 100 Instrument Used: 7mm curette Tissue Removed: Slough and devitalized tissue Severity: Fat Layer Exposed Amount of bleeding with debridement: Mild Bleeding Controlled with: Pressure Patient tolerated procedure well - Additional Wound Wound debrided: Right medial Type of Debridement: Excisional debridement Anesthesia Used: 4% Lidocaine Solution Depth: Down to and including healthy tissue, in the subcutaneous layer Percentage of wound debrided: 100 Instrument Used: 7mm curette Tissue Removed: Slough and devitalized tissue Severity: Fat Layer Exposed Amount of bleeding with debridement: Mild Bleeding Controlled with: Pressure Patient tolerated procedure: Patient tolerated procedure well - Additional Wound Wound debrided: Left lateral Type of Debridement: Excisional debridement Anesthesia Used: 4% Lidocaine Solution Depth: Down to and including healthy tissue, in the subcutaneous layer Percentage of wound debrided: 100 Instrument Used: 7mm curette Tissue Removed: Slough and devitalized tissue Severity: Fat Layer Exposed Amount of bleeding with debridement: Mild Bleeding Controlled with: Pressure Patient tolerated procedure: Patient tolerated procedure well Assessment/Plan Active Problems (Last Reviewed 11/17/18 @ 11:22 by Luz Andino) 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 Tolerated debridement better. Lateral ulcers with no significant improvement. Cultures from the right medial ulcer reviewed. Minimal growth which is likely due to skin contaminant. Right medial ulcer also with better granulation tissue. Debridement done as documented above. Procedure was well-tolerated. Continue Santyl to right sided medial ulcer. This appears to be responding well. Will switch from Fibracol to Kathy to the lateral ulcers. We will also start on fluconazole to cover for possible candidal infection secondary to intertrigo dermatitis/moisture. Continue snap Vac also over the right medial ulcer. Monitor INR every 48 hours due to increased risk of bleeding secondary to drug interaction between fluconazole and Coumadin. Strongly advised that she keep surrounding area and pannus dry. Antifungal powder recommended. Use of absorbable clothing (100% cotton materials)also discussed. Advised to avoid layering. Increased protein intake also recommended. She will continue with [facility] for wound care at home. All her questions were answered and she was advised to call with any further questions or concerns. Follow-up on saturday for a nurse visit and with me in 1 week. This note was generated with [employer] software. It may contain incorrect words, spelling, and punctuation that were not noted in checking the note before signing.
== END 2018-11-22 23:59 ==
LOC: WC 11:00
PROVIDERS: Family Provider Family Medicine; PCP Family Medicine; Referring Provider Internal Medicine; Visit Provider Internal Medicine
DX: L98.492 Non-pressure chronic ulcer of skin of other sites with fat layer exposed (principal); E65 Localized adiposity; L30.4 Erythema intertrigo
CPT/HCPCS: 11042; 87070; 87075; 87077; 87186; 87205; 97605; 97607; 99212; G0463

== ENCOUNTER → 2018-11-23 | Outpatient (CLI) | payer MEDICARE, OTHER, SELFPAY ==
[2018-11-23 11:00] LABS: International Normalized Ratio 2.3; Prothrombin Time (Protime)PT. 24.9 SECONDS (11.7-14.9)
== END | disposition home or self-care (01) ==
PROVIDERS: Family Provider Family Medicine; PCP Family Medicine; Referring Provider Family Medicine; Visit Provider Family Medicine
DX: D69.3 Immune thrombocytopenic purpura (principal); Z79.01 Long term (current) use of anticoagulants
CPT/HCPCS: 85610

== ENCOUNTER 2018-11-25 11:58 | Outpatient (RCR) | payer MEDICARE, OTHER, SELFPAY ==
[2018-11-25 13:58] LABS: International Normalized Ratio 2.3; Prothrombin Time (Protime)PT. 24.9 SECONDS (11.7-14.9)
== END 2018-11-25 18:00 | disposition home or self-care (01) ==
LOC: MTLAB 11:58
PROVIDERS: Family Provider Family Medicine; PCP Family Medicine; Referring Provider Family Medicine; Visit Provider Family Medicine
DX: Z79.01 Long term (current) use of anticoagulants (principal); Z86.718 Personal history of other venous thrombosis and embolism
CPT/HCPCS: 36415; 85610

== ENCOUNTER 2018-12-15 11:15 | Outpatient (RCR) | payer MEDICARE, OTHER, SELFPAY ==
[2018-11-23 01:00] VITALS: BP 135/66; PULSE 92; RESP 20; TEMP 36.9
[2018-11-25 11:31] VITALS: BP 136/66; PULSE 89; RESP 18; TEMP 37.1
[2018-11-27 08:48] VITALS: BP 143/63; PULSE 86; RESP 18; TEMP 36.2
--- NOTE | 2018-11-27 10:25 | PCM.WC.PN ---
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 Burden is an 80-year-old who was referred to the wound center by her primary care physician due to nonhealing abdominal wall ulcer. This was started about 6 weeks ago. After onset, she was seen by her primary care physician and treated with a 10-day course of Keflex with some improvement noted. She was reevaluated after 3 weeks and subsequently referred here due to nonhealing of the ulcer. She admits to significant moisture in the yeast in her abdominal fold. She states that she tries to keep the area dry and applies plain powder to the area. She also admits to a lot of layering because she stays cold. She denies any significant discharge. She also denies chills or fever. Progress of Wound: Stable ulcers. Started on Fluconazole. INR has remained stable. - Physical Exam Vital Signs Temp Pulse Resp BP 97.1 F L 86 18 143/63 H 11/27/18 08:48 11/27/18 08:48 11/27/18 08:48 11/27/18 08:48 General: Alert, Oriented x3, Cooperative, No apparent distress HEENT: Atraumatic, Normocephalic Oral: Moist Mucosa Neck: Supple Lungs: Normal air movement Abdomen: Obese Extremities: No cyanosis Skin: Ulcer/ Wound Wound Measurements and Assessment WC - Nurse 1 - General Ulcer Measurement Start: 11/25/18 11:31 Freq: Status: Active Protocol: Activity Type Activity Date Activity User E-Sign Co-Sign Detail Recorded Client Recorded Date Recorded By Document 11/25/18 11:31 MW [id number] 11/25/18 11:32 MW Document 11/27/18 08:48 RB [id number] 11/27/18 09:16 RB 11/25/18 11/27/18 11:31 08:48 [Ulcer Assessment] #4 R Lat ABD inf -Combined with other wound No -Current Size (cm) - Length 0.1 -Current Size (cm) - Width 0.1 -Current Size (cm) - Depth 0.1 -Total Square Cm 0.01 -Tunneling No -Undermining/Tunneling No -Circular Undermining No -Exudate Amt Small -Exudate Type Serosanguineous -Wound Margin Distinct, Outline Attached -Granulation Amt Medium (34-66%) -Granulation Quality [place] -Slough/Fibrin Yes -Necrosis Amt Small (1-33%) -Necrotic Tissue Type Adherent Slough -Structure Exposed N/A -Texture (Shanita-wound Skin Appearance) Assessed -Moisture (Shanita-wound Skin Appearance Assessed ) -Color (Shanita-wound Skin Appearance) Assessed -Temperature (Shanita-wound Skin No Abnormality Appearance) (Pt Warm) -Tenderness on Palpation (Shanita-wound No Skin Appearance) -Foul Odor after Cleansing No -Anesthetic Used 4% Lidocaine Solution,5% Lidocaine Gel 3-left side abdomen -Current Size (cm) - Length 2.3 -Current Size (cm) - Width 3.3 -Current Size (cm) - Depth 0.1 -Total Square Cm 7.59 -Tunneling No -Undermining/Tunneling No -Circular Undermining No -Exudate Amt Small -Exudate Type Serosanguineous -Wound Margin Distinct, Outline Attached -Granulation Amt Large (67-100%) -Granulation Quality [place] -Slough/Fibrin Yes -Necrosis Amt Small (1-33%) -Necrotic Tissue Type Adherent Slough -Structure Exposed N/A -Texture (Shanita-wound Skin Appearance) Assessed -Moisture (Shanita-wound Skin Appearance Assessed ) -Color (Shanita-wound Skin Appearance) Assessed -Temperature (Shanita-wound Skin No Abnormality Appearance) (Pt Warm) -Tenderness on Palpation (Shanita-wound No Skin Appearance) -Ulcer Cleansing Wound Cleanser -Foul Odor after Cleansing No -Anesthetic Used 5% Lidocaine Gel #2 Right Lower Abdomen- Medial -Combined with other wound No -Current Size (cm) - Length 2 -Current Size (cm) - Width 3.5 -Current Size (cm) - Depth 0.6 -Total Square Cm 7.0 -Tunneling No -Undermining/Tunneling No -Circular Undermining No -Exudate Amt Small -Exudate Type Serosanguineous -Wound Margin Flat & Intact -Granulation Amt Medium (34-66%) -Granulation Quality [place] -Slough/Fibrin Yes -Necrosis Amt Small (1-33%) -Necrotic Tissue Type Adherent Slough -Structure Exposed N/A -Texture (Shanita-wound Skin Appearance) Assessed -Moisture (Shanita-wound Skin Appearance Assessed ) -Color (Shanita-wound Skin Appearance) Assessed -Temperature (Shanita-wound Skin No Abnormality Appearance) (Pt Warm) -Tenderness on Palpation (Shanita-wound No Skin Appearance) -Ulcer Cleansing Wound Cleanser -Foul Odor after Cleansing No -Anesthetic Used 4% Lidocaine Solution #1 Right Lower Abdomen- Lateral -Combined with other wound No -Current Size (cm) - Length 1 -Current Size (cm) - Width 3 -Current Size (cm) - Depth 0.1 -Total Square Cm 3 -Tunneling No -Undermining/Tunneling No -Circular Undermining No -Exudate Amt Small -Exudate Type Serosanguineous -Wound Margin Distinct, Outline Attached -Granulation Amt Medium (34-66%) -Granulation Quality [place] -Slough/Fibrin Yes -Necrosis Amt Small (1-33%) -Necrotic Tissue Type Adherent Slough -Structure Exposed N/A -Texture (Shanita-wound Skin Appearance) Assessed -Moisture (Shanita-wound Skin Appearance Assessed ) -Color (Shanita-wound Skin Appearance) Assessed -Temperature (Shanita-wound Skin No Abnormality Appearance) (Pt Warm) -Tenderness on Palpation (Shanita-wound No Skin Appearance) -Ulcer Cleansing Wound Cleanser -Foul Odor after Cleansing No -Anesthetic Used 5% Lidocaine Gel Wound Center Nurse 1 [Edema Assessment] -Lower Limb Edema Present No WC - Nurse 2 - General Ulcer CM Notes Start: 11/25/18 11:31 Freq: Status: Active Protocol: Activity Type Activity Date Activity User E-Sign Co-Sign Detail Recorded Client Recorded Date Recorded By Document 11/27/18 09:24 MW [id number] 11/27/18 09:35 MW 11/27/18 09:24 Wound Center Nurse 2 [Procedure/Treatment] #4 R Lat ABD inf -Time 09:25 -Correct Patient Yes -Correct Side, Site, Position Yes -Correct Procedure Yes -Post Debridement Size (cm) - Length 0 -Post Debridement Size (cm) - Width 0 -Post Debridement Size (cm) - Depth 0 -Total Square Cm 0 -Wound/Ulcer Outcome Healed- Epithelialized -Ulcer Cleansing Rinsed/ Irrigated with Saline -Bleeding Controlled with NA -Treatment Response Procedure Tolerated Well 3-left side abdomen -Time 09:26 -Correct Patient Yes -Correct Side, Site, Position Yes -Correct Procedure Yes -Procedure Performed Yes -Type of Procedure Debridement -Clinical Debridement Subcutaneous -Post Debridement Size (cm) - Length 2.0 -Post Debridement Size (cm) - Width 3.7 -Post Debridement Size (cm) - Depth 0.2 -Total Square Cm 7.40 -Wound/Ulcer Outcome Not Healed -Ulcer Cleansing Rinsed/ Irrigated with Saline -Foul Odor after Cleansing No -Bioengineered Tissue No -Bleeding Controlled with Pressure -Offloading No -Treatment Response Procedure Tolerated Well #2 Right Lower Abdomen- Medial -Time 09:26 -Correct Patient Yes -Correct Side, Site, Position Yes -Correct Procedure Yes -Procedure Performed Yes -Type of Procedure Debridement -Clinical Debridement Subcutaneous -Post Debridement Size (cm) - Length 1.5 -Post Debridement Size (cm) - Width 3.2 -Post Debridement Size (cm) - Depth 1.0 -Total Square Cm 4.80 -Wound/Ulcer Outcome Not Healed -Ulcer Cleansing Rinsed/ Irrigated with Saline -Foul Odor after Cleansing No -Bioengineered Tissue No -Bleeding Controlled with Pressure -Offloading No -Treatment Response Procedure Tolerated Well #1 Right Lower Abdomen- Lateral -Time 09:26 -Correct Patient Yes -Correct Side, Site, Position Yes -Correct Procedure Yes -Procedure Performed Yes -Type of Procedure Debridement -Clinical Debridement Subcutaneous -Post Debridement Size (cm) - Length 0.6 -Post Debridement Size (cm) - Width 3.0 -Post Debridement Size (cm) - Depth 0.1 -Total Square Cm 1.80 -Wound/Ulcer Outcome Not Healed -Ulcer Cleansing Rinsed/ Irrigated with Saline -Foul Odor after Cleansing No -Bioengineered Tissue No -Bleeding Controlled with Pressure -Offloading No -Treatment Response Procedure Tolerated Well [See Physician Procedure note for Specifics] Pain Scale: 0-10 Numeric [Pain] -Is Patient Pain Free? Yes Neurological: Cranial nerves II-XII grossly intact Psych/Mental Status: Normal Affect Debridement Note Post-Debridement Measurements/Treatment WC - Nurse 2 - General Ulcer CM Notes Start: 11/25/18 11:31 Freq: Status: Active Protocol: Activity Type Activity Date Activity User E-Sign Co-Sign Detail Recorded Client Recorded Date Recorded By Document 11/27/18 09:24 MW [id number] 11/27/18 09:35 MW 11/27/18 09:24 Wound Center Nurse 2 #4 R Lat ABD inf -Time 09:25 -Correct Patient Yes -Correct Side, Site, Position Yes -Correct Procedure Yes -Post Debridement Size (cm) - Length 0 -Post Debridement Size (cm) - Width 0 -Post Debridement Size (cm) - Depth 0 -Total Square Cm 0 -Wound/Ulcer Outcome Healed- Epithelialized -Ulcer Cleansing Rinsed/ Irrigated with Saline -Bleeding Controlled with NA -Treatment Response Procedure Tolerated Well 3-left side abdomen -Time 09:26 -Correct Patient Yes -Correct Side, Site, Position Yes -Correct Procedure Yes -Procedure Performed Yes -Type of Procedure Debridement -Clinical Debridement Subcutaneous -Post Debridement Size (cm) - Length 2.0 -Post Debridement Size (cm) - Width 3.7 -Post Debridement Size (cm) - Depth 0.2 -Total Square Cm 7.40 -Wound/Ulcer Outcome Not Healed -Ulcer Cleansing Rinsed/ Irrigated with Saline -Foul Odor after Cleansing No -Bioengineered Tissue No -Bleeding Controlled with Pressure -Offloading No -Treatment Response Procedure Tolerated Well #2 Right Lower Abdomen- Medial -Time 09:26 -Correct Patient Yes -Correct Side, Site, Position Yes -Correct Procedure Yes -Procedure Performed Yes -Type of Procedure Debridement -Clinical Debridement Subcutaneous -Post Debridement Size (cm) - Length 1.5 -Post Debridement Size (cm) - Width 3.2 -Post Debridement Size (cm) - Depth 1.0 -Total Square Cm 4.80 -Wound/Ulcer Outcome Not Healed -Ulcer Cleansing Rinsed/ Irrigated with Saline -Foul Odor after Cleansing No -Bioengineered Tissue No -Bleeding Controlled with Pressure -Offloading No -Treatment Response Procedure Tolerated Well #1 Right Lower Abdomen- Lateral -Time 09:26 -Correct Patient Yes -Correct Side, Site, Position Yes -Correct Procedure Yes -Procedure Performed Yes -Type of Procedure Debridement -Clinical Debridement Subcutaneous -Post Debridement Size (cm) - Length 0.6 -Post Debridement Size (cm) - Width 3.0 -Post Debridement Size (cm) - Depth 0.1 -Total Square Cm 1.80 -Wound/Ulcer Outcome Not Healed -Ulcer Cleansing Rinsed/ Irrigated with Saline -Foul Odor after Cleansing No -Bioengineered Tissue No -Bleeding Controlled with Pressure -Offloading No -Treatment Response Procedure Tolerated Well Pain Scale: 0-10 Numeric Is Patient Pain Free? Yes Wound debrided: Right lower abdomen ( Medial ) Wound Grade/Stage: Stage III Type of Debridement: Excisional debridement Anesthesia Used: 4% Lidocaine Solution Depth: Down to and including healthy tissue, in the subcutaneous layer Percentage of wound debrided: 100 Instrument Used: 7mm curette Tissue Removed: Slough and devitalized tissue Severity: Fat Layer Exposed Amount of bleeding with debridement: Mild Bleeding Controlled with: Pressure Patient tolerated procedure well - Additional Wound Wound debrided: Right lower abdomen ( lateral ) Wound Grade/Stage: Stage II Type of Debridement: Excisional debridement Anesthesia Used: 4% Lidocaine Solution Depth: Down to and including healthy tissue, in the subcutaneous layer Percentage of wound debrided: 100 Instrument Used: 3mm curette Tissue Removed: Slough and devitalized tissue Severity: Fat Layer Exposed Amount of bleeding with debridement: Mild Bleeding Controlled with: Pressure Patient tolerated procedure: Patient tolerated procedure well - Additional Wound Wound debrided: Left lower abdomen Wound Grade/Stage: Stage III Type of Debridement: Excisional debridement Anesthesia Used: 4% Lidocaine Solution Depth: Down to and including healthy tissue, in the subcutaneous layer Percentage of wound debrided: 100 Instrument Used: 3mm curette Tissue Removed: Slough and devitalized tissue Severity: Fat Layer Exposed Amount of bleeding with debridement: Mild Bleeding Controlled with: Pressure Patient tolerated procedure: Patient tolerated procedure well Assessment/Plan Active Problems (Last Reviewed 11/17/18 @ 11:22 by Luz Andino) 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 Procedure was well-tolerated. Continue Santyl to right sided medial ulcer. Good granulation tissue. Depth however worsened slightly this week. Left lateral depth also worsened. Continue Kathy to both lateral ulcers and fluconazole to cover for possible candidal infection secondary to intertrigo dermatitis/moisture. Continue snap Vac also over the right medial ulcer. Monitor for increased bleeding/ bruising due to increased risk of bleeding secondary to drug interaction between fluconazole and Coumadin. INR x 2 have been within normal. Strongly advised that she keep surrounding area and pannus dry. Antifungal powder recommended. Use of absorbable clothing (100% cotton materials)also discussed. Advised to avoid layering. Increased protein intake also recommended. She will continue with N for wound care at home. All her questions were answered and she was advised to call with any further questions or concerns. Follow-up on saturday for a nurse visit and with me in 1 week. This note was generated with [employer] dictation software. It may contain incorrect words, spelling, and punctuation that were not noted in checking the note before signing.
[2018-12-01 14:16] VITALS: BP 101/70; PULSE 84; RESP 18; TEMP 36.7
[2018-12-03 11:19] VITALS: BP 131/77; PULSE 86; RESP 18; TEMP 36.3
--- NOTE | 2018-12-03 18:08 | PN.PCM_ITS ---
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 Burden is an 80-year-old who was referred to the wound center by her primary care physician due to nonhealing abdominal wall ulcer. This was started about 6 weeks ago. After onset, she was seen by her primary care physician and treated with a 10-day course of Keflex with some improvement noted. She was reevaluated after 3 weeks and subsequently referred here due to nonhealing of the ulcer. She admits to significant moisture in the yeast in her abdominal fold. She states that she tries to keep the area dry and applies plain powder to the area. She also admits to a lot of layering because she stays cold. She denies any significant discharge. She also denies chills or fever. Progress of Wound: Worsening ulcers. Still has significant abdominal pain. - Physical Exam Vital Signs Temp Pulse Resp BP 97.3 F L 86 18 131/77 H 12/03/18 11:19 12/03/18 11:19 12/03/18 11:19 12/03/18 11:19 General: Alert, Oriented x3, Cooperative, No apparent distress HEENT: Atraumatic, Normocephalic Oral: Moist Mucosa Neck: Supple Lungs: Normal air movement Abdomen: Soft, Obese, Tender Extremities: No cyanosis Skin: Ulcer/ Wound Wound Measurements and Assessment WC - Nurse 1 - General Ulcer Measurement Start: 11/25/18 11:31 Freq: Status: Active Protocol: Activity Type Activity Date Activity User E-Sign Co-Sign Detail Recorded Client Recorded Date Recorded By Document 12/01/18 14:16 MW [id number] 12/01/18 14:22 MW Document 12/03/18 11:19 RB [id number] 12/03/18 11:25 RB 09/09/19 09/11/19 14:16 11:19 Wound Center Nurse 1 [Ulcer Assessment] 3-left side abdomen -Combined with other wound No -Current Size (cm) - Length 2.5 -Current Size (cm) - Width 4.3 -Current Size (cm) - Depth 0.3 -Total Square Cm 10.75 -Tunneling No -Undermining/Tunneling No -Circular Undermining No -Exudate Amt Small -Exudate Type Serosanguineous -Wound Margin Flat & Intact -Granulation Amt Medium (34-66%) -Granulation Quality [place] -Slough/Fibrin Yes -Necrosis Amt Small (1-33%) -Necrotic Tissue Type Adherent Slough -Structure Exposed N/A -Texture (Shanita-wound Skin Appearance) Assessed, Scarring -Moisture (Shanita-wound Skin Appearance Assessed ) -Color (Shanita-wound Skin Appearance) Assessed, Erythema -Temperature (Shanita-wound Skin No Abnormality Appearance) (Pt Warm) -Tenderness on Palpation (Shanita-wound No Skin Appearance) -Ulcer Cleansing soap and water Wound Cleanser -Foul Odor after Cleansing No No -Anesthetic Used 4% Lidocaine Solution,5% Lidocaine Gel #2 Right Lower Abdomen- Medial -Combined with other wound No -Current Size (cm) - Length 2 -Current Size (cm) - Width 4 -Current Size (cm) - Depth 1.4 -Total Square Cm 8 -Tunneling Yes -Tunneling Position (O'clock) 9 -Tunneling Distance (cm) 1.4 -Undermining/Tunneling No -Circular Undermining No -Exudate Amt Small -Exudate Type Serosanguineous -Wound Margin Distinct, Outline Attached -Granulation Amt Medium (34-66%) -Granulation Quality [place] -Slough/Fibrin Yes -Necrosis Amt Small (1-33%) -Necrotic Tissue Type Adherent Slough -Structure Exposed N/A -Texture (Shanita-wound Skin Appearance) Assessed, Scarring -Moisture (Shanita-wound Skin Appearance Assessed ) -Color (Shanita-wound Skin Appearance) Assessed, Erythema -Temperature (Shanita-wound Skin No Abnormality Appearance) (Pt Warm) -Tenderness on Palpation (Shanita-wound No Skin Appearance) -Ulcer Cleansing soap and water Wound Cleanser -Foul Odor after Cleansing No No -Anesthetic Used 4% Lidocaine Solution,5% Lidocaine Gel #1 Right Lower Abdomen- Lateral -Combined with other wound No No -Current Size (cm) - Length 1 -Current Size (cm) - Width 3.5 -Current Size (cm) - Depth 0.4 -Total Square Cm 3.5 -Tunneling No -Undermining/Tunneling No -Circular Undermining No -Exudate Amt Small -Exudate Type Serosanguineous -Wound Margin Distinct, Outline Attached -Granulation Amt Medium (34-66%) -Granulation Quality [place] -Slough/Fibrin Yes -Necrosis Amt Small (1-33%) -Necrotic Tissue Type Adherent Slough -Structure Exposed N/A -Texture (Shanita-wound Skin Appearance) Assessed, Scarring -Moisture (Shanita-wound Skin Appearance Assessed ) -Color (Shanita-wound Skin Appearance) Erythema -Temperature (Shanita-wound Skin No Abnormality Appearance) (Pt Warm) -Tenderness on Palpation (Shanita-wound No Skin Appearance) -Ulcer Cleansing soap and water Wound Cleanser -Foul Odor after Cleansing No No -Anesthetic Used 4% Lidocaine Solution,5% Lidocaine Gel [Edema Assessment] -Lower Limb Edema Present No WC - Nurse 2 - General Ulcer CM Notes Start: 11/25/18 11:31 Freq: Status: Active Protocol: Activity Type Activity Date Activity User E-Sign Co-Sign Detail Recorded Client Recorded Date Recorded By Document 12/03/18 11:32 MW [id number] 12/03/18 11:47 MW 12/03/18 11:32 Wound Center Nurse 2 [Procedure/Treatment] 3-left side abdomen -Time 11:35 -Correct Patient Yes -Correct Side, Site, Position Yes -Correct Procedure Yes -Procedure Performed Yes -Type of Procedure Debridement -Clinical Debridement Subcutaneous -Post Debridement Size (cm) - Length 2.0 -Post Debridement Size (cm) - Width 4.0 -Post Debridement Size (cm) - Depth 0.4 -Total Square Cm 3.00 -Wound/Ulcer Outcome Not Healed -Ulcer Cleansing Rinsed/ Irrigated with Saline -Foul Odor after Cleansing No -Bioengineered Tissue No -Bleeding Controlled with Pressure -Offloading No -Treatment Response Procedure Tolerated Well #2 Right Lower Abdomen- Medial -Time 11:36 -Correct Patient Yes -Correct Side, Site, Position Yes -Correct Procedure Yes -Procedure Performed Yes -Type of Procedure Debridement -Clinical Debridement Subcutaneous -Post Debridement Size (cm) - Length 1.7 -Post Debridement Size (cm) - Width 3.5 -Post Debridement Size (cm) - Depth 2.0 -Total Square Cm 0.85 -Wound/Ulcer Outcome Not Healed -Ulcer Cleansing Rinsed/ Irrigated with Saline -Foul Odor after Cleansing No -Bioengineered Tissue No -Bleeding Controlled with Pressure -Offloading No -Treatment Response Procedure Tolerated Well #1 Right Lower Abdomen- Lateral -Time 11:36 -Correct Patient Yes -Correct Side, Site, Position Yes -Correct Procedure Yes -Procedure Performed Yes -Type of Procedure Debridement -Clinical Debridement Subcutaneous -Post Debridement Size (cm) - Length 1.0 -Post Debridement Size (cm) - Width 3.0 -Post Debridement Size (cm) - Depth 0.2 -Total Square Cm 8.00 -Wound/Ulcer Outcome Not Healed -Ulcer Cleansing Rinsed/ Irrigated with Saline -Foul Odor after Cleansing No -Bioengineered Tissue No -Bleeding Controlled with Pressure -Offloading No -Treatment Response Procedure Tolerated Well [See Physician Procedure note for Specifics] Pain Scale: 0-10 Numeric [Pain] -Is Patient Pain Free? Yes Neurological: Cranial nerves II-XII grossly intact Psych/Mental Status: Normal Affect Debridement Note Post-Debridement Measurements/Treatment WC - Nurse 2 - General Ulcer CM Notes Start: 11/25/18 11:31 Freq: Status: Active Protocol: Activity Type Activity Date Activity User E-Sign Co-Sign Detail Recorded Client Recorded Date Recorded By Document 11/27/18 09:24 MW [id number] 11/27/18 09:35 MW Document 12/03/18 11:32 MW [id number] 12/03/18 11:47 MW 11/27/18 12/03/18 09:24 11:32 Wound Center Nurse 2 #4 R Lat ABD inf -Time 09:25 -Correct Patient Yes -Correct Side, Site, Position Yes -Correct Procedure Yes -Post Debridement Size (cm) - Length 0 -Post Debridement Size (cm) - Width 0 -Post Debridement Size (cm) - Depth 0 -Total Square Cm 0 -Wound/Ulcer Outcome Healed- Epithelialized -Ulcer Cleansing Rinsed/ Irrigated with Saline -Bleeding Controlled with NA -Treatment Response Procedure Tolerated Well 3-left side abdomen -Time 09:26 11:35 -Correct Patient Yes Yes -Correct Side, Site, Position Yes Yes -Correct Procedure Yes Yes -Procedure Performed Yes Yes -Type of Procedure Debridement Debridement -Clinical Debridement Subcutaneous Subcutaneous -Post Debridement Size (cm) - Length 2.0 1.0 -Post Debridement Size (cm) - Width 3.7 3.0 -Post Debridement Size (cm) - Depth 0.2 0.2 -Total Square Cm 7.40 3.00 -Wound/Ulcer Outcome Not Healed Not Healed -Ulcer Cleansing Rinsed/ Rinsed/ Irrigated with Irrigated with Saline Saline -Foul Odor after Cleansing No No -Bioengineered Tissue No No -Bleeding Controlled with Pressure Pressure -Offloading No No -Treatment Response Procedure Procedure Tolerated Well Tolerated Well #2 Right Lower Abdomen- Medial -Time 09: 11:36 -Correct Patient Yes Yes -Correct Side, Site, Position Yes Yes -Correct Procedure Yes Yes -Procedure Performed Yes Yes -Type of Procedure Debridement Debridement -Clinical Debridement Subcutaneous Subcutaneous -Post Debridement Size (cm) - Length 1.5 1.7 -Post Debridement Size (cm) - Width 3.2 0.5 -Post Debridement Size (cm) - Depth 1.0 0.2 -Total Square Cm 4.80 0.85 -Wound/Ulcer Outcome Not Healed Not Healed -Ulcer Cleansing Rinsed/ Rinsed/ Irrigated with Irrigated with Saline Saline -Foul Odor after Cleansing No No -Bioengineered Tissue No No -Bleeding Controlled with Pressure Pressure -Offloading No No -Treatment Response Procedure Procedure Tolerated Well Tolerated Well #1 Right Lower Abdomen- Lateral -Time 09: 11:36 -Correct Patient Yes Yes -Correct Side, Site, Position Yes Yes -Correct Procedure Yes Yes -Procedure Performed Yes Yes -Type of Procedure Debridement Debridement -Clinical Debridement Subcutaneous Subcutaneous -Post Debridement Size (cm) - Length 0.6 2.0 -Post Debridement Size (cm) - Width 3.0 4.0 -Post Debridement Size (cm) - Depth 0.1 0.4 -Total Square Cm 1.80 8.00 -Wound/Ulcer Outcome Not Healed Not Healed -Ulcer Cleansing Rinsed/ Rinsed/ Irrigated with Irrigated with Saline Saline -Foul Odor after Cleansing No No -Bioengineered Tissue No No -Bleeding Controlled with Pressure Pressure -Offloading No No -Treatment Response Procedure Procedure Tolerated Well Tolerated Well Pain Scale: 0-10 Numeric Is Patient Pain Free? Yes Yes Wound debrided: Right lower abdomen (medial) Wound Grade/Stage: Stage III Type of Debridement: Excisional debridement Anesthesia Used: 4% Lidocaine Solution Depth: Down to and including healthy tissue, in the subcutaneous layer Percentage of wound debrided: 100 Instrument Used: 7mm curette Tissue Removed: Slough and devitalized tissue Severity: Fat Layer Exposed Amount of bleeding with debridement: Mild Bleeding Controlled with: Pressure Patient tolerated procedure well - Additional Wound Wound debrided: Right lateral abdomen Wound Grade/Stage: Stage II Type of Debridement: Excisional debridement Anesthesia Used: 4% Lidocaine Solution Depth: Down to and including healthy tissue, in the subcutaneous layer Percentage of wound debrided: 100 Instrument Used: 3mm curette Tissue Removed: Slough and devitalized tissue Severity: Fat Layer Exposed Amount of bleeding with debridement: Mild Bleeding Controlled with: Pressure Patient tolerated procedure: Patient tolerated procedure well - Additional Wound Wound debrided: Left lower abdomen Wound Grade/Stage: Stage III Type of Debridement: Excisional debridement Anesthesia Used: 5% Lidocaine Gel Depth: Down to and including healthy tissue, in the subcutaneous layer Percentage of wound debrided: 100 Instrument Used: 7mm curette Tissue Removed: Slough and devitalized tissue Severity: Fat Layer Exposed Amount of bleeding with debridement: Mild Bleeding Controlled with: Pressure Patient tolerated procedure: Patient tolerated procedure well Assessment/Plan Active Problems (Last Reviewed 12/02/18 @ 13:26 by Holly Burden) 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 Procedure was well-tolerated. Yohana has made no significant change. Right medial ulcer and left lateral with worsening depth. No improvement in right lateral ulcer. I believe she would benefit from surgical debridement/panniculectomy. Continue snap Vac to right medial ulcer. Santyl to left medial and Fibracol to right lateral ulcer. Strongly advised that she keep surrounding area and pannus dry. Antifungal powder recommended. Use of absorbable clothing (100% cotton materials)also discussed. Advised to avoid layering. Increased protein intake also recommended. She will continue with N for wound care at home. All her questions were answered and she was advised to call with any further questions or concerns. Referred to Dr. Tafoya for possible surgical consult. Follow-up on saturday for a nurse visit and with me in 1 week. This note was generated with Dragon dictation software. It may contain incorrect words, spelling, and punctuation that were not noted in checking the note before signing.
[2018-12-08 11:49] VITALS: BP 132/65; PULSE 82; RESP 18; TEMP 36.2
[2018-12-10 11:46] VITALS: BP 113/48; PULSE 94; RESP 18; TEMP 36.6
--- NOTE | 2018-12-10 12:28 | PCM.WC.PN ---
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 Burden is an 80-year-old who was referred to the wound center by her primary care physician due to nonhealing abdominal wall ulcer. This was started about 6 weeks ago. After onset, she was seen by her primary care physician and treated with a 10-day course of Keflex with some improvement noted. She was reevaluated after 3 weeks and subsequently referred here due to nonhealing of the ulcer. She admits to significant moisture in the yeast in her abdominal fold. She states that she tries to keep the area dry and applies plain powder to the area. She also admits to a lot of layering because she stays cold. She denies any significant discharge. She also denies chills or fever. Progress of Wound: Worsening still. Cultures with new growth. - Physical Exam Vital Signs Temp Pulse Resp BP 97.8 F 94 18 113/48 L 12/10/18 11:46 12/10/18 11:46 12/10/18 11:46 12/10/18 11:46 General: Alert, Oriented x3, Cooperative, No apparent distress HEENT: Atraumatic, Normocephalic Oral: Moist Mucosa Neck: Supple Lungs: Normal air movement Abdomen: Soft, Obese, Tender Extremities: No cyanosis Skin: Ulcer/ Wound Wound Measurements and Assessment WC - Nurse 1 - General Ulcer Measurement Start: 11/25/18 11:31 Freq: Status: Active Protocol: Activity Type Activity Date Activity User E-Sign Co-Sign Detail Recorded Client Recorded Date Recorded By Document 12/08/18 11:49 RB [id number] 12/08/18 11:52 RB Document 12/10/18 11:46 RB [id number] 12/10/18 11:58 RB 12/08/18 12/10/18 11:49 11:46 Wound Center Nurse 1 [Ulcer Assessment] 3-left side abdomen -Combined with other wound No -Current Size (cm) - Length 3.3 -Current Size (cm) - Width 5.1 -Current Size (cm) - Depth 1.3 -Total Square Cm 16.83 -Photo Taken No -Epithelialization None Present -Tunneling No Yes -Tunneling Position (O'clock) 8 -Tunneling Distance (cm) 1.2 -Undermining/Tunneling No No -Circular Undermining No No -Exudate Amt Medium Medium -Exudate Type Serosanguineous Serosanguineous -Wound Margin Thickened & Flat & Intact Rolled Under -Granulation Amt Medium (34-66%) None Present (0 %) -Granulation Quality Red -Slough/Fibrin Yes Yes -Necrosis Amt Medium (34-66%) Large (67-100%) -Necrotic Tissue Type Adherent Slough Adherent Slough -Structure Exposed N/A -Texture (Shanita-wound Skin Appearance) Assessed, Assessed, Scarring Scarring -Moisture (Shanita-wound Skin Appearance Assessed Assessed ) -Color (Shanita-wound Skin Appearance) Assessed Assessed, Erythema -Temperature (Shanita-wound Skin No Abnormality No Abnormality Appearance) (Pt Warm) (Pt Warm) -Tenderness on Palpation (Shanita-wound No Yes Skin Appearance) -Ulcer Cleansing Wound Cleanser soaqp and water -Foul Odor after Cleansing No -Anesthetic Used 4% Lidocaine Solution #2 Right Lower Abdomen- Medial -Combined with other wound No -Current Size (cm) - Length 1.7 -Current Size (cm) - Width 3.4 -Current Size (cm) - Depth 2.1 -Total Square Cm 5.78 -Photo Taken No -Epithelialization None Present -Tunneling No No -Undermining/Tunneling No Yes -Undermining/Tunneling Starts (O' 9 clock) -Undermining/Tunneling Ends (O'clock) 1 -Maximum Distance (cm) 2 -Circular Undermining No -Exudate Amt Medium Medium -Exudate Type Serosanguineous Serosanguineous -Wound Margin Distinct, Distinct, Outline Outline Attached Attached -Granulation Amt Medium (34-66%) Large (67-100%) -Granulation Quality Red Red -Slough/Fibrin No Yes -Necrosis Amt Medium (34-66%) Small (1-33%) -Necrotic Tissue Type Adherent Slough Adherent Slough -Structure Exposed N/A -Texture (Shanita-wound Skin Appearance) Assessed, Assessed, Scarring Scarring -Moisture (Shanita-wound Skin Appearance Assessed Assessed ) -Color (Shanita-wound Skin Appearance) Assessed Assessed, Erythema -Temperature (Shanita-wound Skin No Abnormality No Abnormality Appearance) (Pt Warm) (Pt Warm) -Tenderness on Palpation (Shanita-wound No Yes Skin Appearance) -Ulcer Cleansing Wound Cleanser soap and water -Foul Odor after Cleansing No No -Anesthetic Used 4% Lidocaine Solution #1 Right Lower Abdomen- Lateral -Combined with other wound No -Current Size (cm) - Length 0.9 -Current Size (cm) - Width 3 -Current Size (cm) - Depth 0.4 -Total Square Cm 2.7 -Photo Taken No -Epithelialization None Present -Tunneling No No -Undermining/Tunneling No No -Circular Undermining No No -Exudate Amt Medium Medium -Exudate Type Serosanguineous Serosanguineous -Wound Margin Distinct, Distinct, Outline Outline Attached Attached -Granulation Amt Medium (34-66%) Medium (34-66%) -Granulation Quality Red Red -Slough/Fibrin Yes Yes -Necrosis Amt Medium (34-66%) Medium (34-66%) -Necrotic Tissue Type Adherent Slough Adherent Slough -Structure Exposed N/A -Texture (Shanita-wound Skin Appearance) Scarring Assessed, Scarring -Moisture (Shanita-wound Skin Appearance Assessed Assessed ) -Color (Shanita-wound Skin Appearance) Assessed Erythema -Temperature (Shanita-wound Skin No Abnormality No Abnormality Appearance) (Pt Warm) (Pt Warm) -Tenderness on Palpation (Shanita-wound No Yes Skin Appearance) -Ulcer Cleansing Wound Cleanser soap and water -Foul Odor after Cleansing No No -Anesthetic Used 4% Lidocaine Solution WC - Nurse 2 - General Ulcer CM Notes Start: 11/25/18 11:31 Freq: Status: Active Protocol: Activity Type Activity Date Activity User E-Sign Co-Sign Detail Recorded Client Recorded Date Recorded By Document 12/10/18 12:09 MW [id number] 12/10/18 12:19 MW 12/10/18 12:09 Wound Center Nurse 2 [Procedure/Treatment] 3-left side abdomen -Time 12:10 -Correct Patient Yes -Correct Side, Site, Position Yes -Correct Procedure Yes -Procedure Performed Yes -Type of Procedure Debridement -Clinical Debridement Subcutaneous -Post Debridement Size (cm) - Length 4.0 -Post Debridement Size (cm) - Width 5.0 -Post Debridement Size (cm) - Depth 2.0 -Total Square Cm 20.00 -Wound/Ulcer Outcome Not Healed -Ulcer Cleansing Rinsed/ Irrigated with Saline -Foul Odor after Cleansing No -Bioengineered Tissue No -Bleeding Controlled with Pressure -Offloading No -Treatment Response Procedure Tolerated Well #2 Right Lower Abdomen- Medial -Time 12:10 -Correct Patient Yes -Correct Side, Site, Position Yes -Correct Procedure Yes -Procedure Performed Yes -Type of Procedure Debridement -Clinical Debridement Subcutaneous -Post Debridement Size (cm) - Length 1.3 -Post Debridement Size (cm) - Width 3.2 -Post Debridement Size (cm) - Depth 2.5 -Total Square Cm 4.16 -Wound/Ulcer Outcome Not Healed -Ulcer Cleansing Rinsed/ Irrigated with Saline -Foul Odor after Cleansing No -Bioengineered Tissue No -Bleeding Controlled with Pressure -Offloading No -Treatment Response Procedure Tolerated Well #1 Right Lower Abdomen- Lateral -Time 12:10 -Correct Patient Yes -Correct Side, Site, Position Yes -Correct Procedure Yes -Procedure Performed Yes -Type of Procedure Debridement -Clinical Debridement Subcutaneous -Post Debridement Size (cm) - Length 1.0 -Post Debridement Size (cm) - Width 3.0 -Post Debridement Size (cm) - Depth 0.2 -Total Square Cm 3.00 -Wound/Ulcer Outcome Not Healed -Ulcer Cleansing Rinsed/ Irrigated with Saline -Foul Odor after Cleansing No -Bioengineered Tissue No -Bleeding Controlled with Pressure -Offloading No -Treatment Response Procedure Tolerated Well [See Physician Procedure note for Specifics] Pain Scale: 0-10 Numeric [Pain] -Is Patient Pain Free? Yes Neurological: Cranial nerves II-XII grossly intact Psych/Mental Status: Normal Affect Debridement Note Post-Debridement Measurements/Treatment WC - Nurse 2 - General Ulcer CM Notes Start: 11/25/18 11:31 Freq: Status: Active Protocol: Activity Type Activity Date Activity User E-Sign Co-Sign Detail Recorded Client Recorded Date Recorded By Document 11/27/18 09:24 MW [id number] 11/27/18 09:35 MW Document 12/03/18 11:32 MW [id number] 12/03/18 11:47 MW Document 12/10/18 12:09 MW [id number] 12/10/18 12:19 MW 11/27/18 12/03/18 12/10/18 09:24 11:32 12:09 Wound Center Nurse 2 #4 R Lat ABD inf -Time 09:25 -Correct Patient Yes -Correct Side, Site, Position Yes -Correct Procedure Yes -Post Debridement Size (cm) - Length 0 -Post Debridement Size (cm) - Width 0 -Post Debridement Size (cm) - Depth 0 -Total Square Cm 0 -Wound/Ulcer Outcome Healed- Epithelialized -Ulcer Cleansing Rinsed/ Irrigated with Saline -Bleeding Controlled with NA -Treatment Response Procedure Tolerated Well 3-left side abdomen -Time 09: 11:35 12:10 -Correct Patient Yes Yes Yes -Correct Side, Site, Position Yes Yes Yes -Correct Procedure Yes Yes Yes -Procedure Performed Yes Yes Yes -Type of Procedure Debridement Debridement Debridement -Clinical Debridement Subcutaneous Subcutaneous Subcutaneous -Post Debridement Size (cm) - Length 2.0 2.0 4.0 -Post Debridement Size (cm) - Width 3.7 4.0 5.0 -Post Debridement Size (cm) - Depth 0.2 0.4 2.0 -Total Square Cm 7.40 8.00 20.00 -Wound/Ulcer Outcome Not Healed Not Healed Not Healed -Ulcer Cleansing Rinsed/ Rinsed/ Rinsed/ Irrigated with Irrigated with Irrigated with Saline Saline Saline -Foul Odor after Cleansing No No No -Bioengineered Tissue No No No -Bleeding Controlled with Pressure Pressure Pressure -Offloading No No No -Treatment Response Procedure Procedure Procedure Tolerated Well Tolerated Well Tolerated Well #2 Right Lower Abdomen- Medial -Time : 11:36 12:10 -Correct Patient Yes Yes Yes -Correct Side, Site, Position Yes Yes Yes -Correct Procedure Yes Yes Yes -Procedure Performed Yes Yes Yes -Type of Procedure Debridement Debridement Debridement -Clinical Debridement Subcutaneous Subcutaneous Subcutaneous -Post Debridement Size (cm) - Length 1.5 1.7 1.3 -Post Debridement Size (cm) - Width 3.2 0.5 3.2 -Post Debridement Size (cm) - Depth 1.0 2.0 2.5 -Total Square Cm 4.80 0.85 4.16 -Wound/Ulcer Outcome Not Healed Not Healed Not Healed -Ulcer Cleansing Rinsed/ Rinsed/ Rinsed/ Irrigated with Irrigated with Irrigated with Saline Saline Saline -Foul Odor after Cleansing No No No -Bioengineered Tissue No No No -Bleeding Controlled with Pressure Pressure Pressure -Offloading No No No -Treatment Response Procedure Procedure Procedure Tolerated Well Tolerated Well Tolerated Well #1 Right Lower Abdomen- Lateral -Time 09:26 11:36 12:10 -Correct Patient Yes Yes Yes -Correct Side, Site, Position Yes Yes Yes -Correct Procedure Yes Yes Yes -Procedure Performed Yes Yes Yes -Type of Procedure Debridement Debridement Debridement -Clinical Debridement Subcutaneous Subcutaneous Subcutaneous -Post Debridement Size (cm) - Length 0.6 1.0 1.0 -Post Debridement Size (cm) - Width 3.0 3.0 3.0 -Post Debridement Size (cm) - Depth 0.1 0.2 0.2 -Total Square Cm 1.80 3.00 3.00 -Wound/Ulcer Outcome Not Healed Not Healed Not Healed -Ulcer Cleansing Rinsed/ Rinsed/ Rinsed/ Irrigated with Irrigated with Irrigated with Saline Saline Saline -Foul Odor after Cleansing No No No -Bioengineered Tissue No No No -Bleeding Controlled with Pressure Pressure Pressure -Offloading No No No -Treatment Response Procedure Procedure Procedure Tolerated Well Tolerated Well Tolerated Well Pain Scale: 0-10 Numeric Is Patient Pain Free? Yes Yes Yes Wound debrided: Abdomen ( Left ) Type of Debridement: Excisional debridement Anesthesia Used: 4% Lidocaine Solution, 5% Lidocaine Gel Depth: Down to and including healthy tissue, in the subcutaneous layer Percentage of wound debrided: 100 Instrument Used: 7mm curette, #15 blade, Forceps Tissue Removed: Slough and devitalized tissue Severity: Fat Layer Exposed Amount of bleeding with debridement: Mild Bleeding Controlled with: Pressure Patient tolerated procedure well - Additional Wound Wound debrided: Abdomen ( Right Medial ) Type of Debridement: Excisional debridement Anesthesia Used: 4% Lidocaine Solution, 5% Lidocaine Gel Depth: Down to and including healthy tissue, in the subcutaneous layer Percentage of wound debrided: 100 Instrument Used: 7mm curette Tissue Removed: Slough and devitalized tissue Severity: Fat Layer Exposed Amount of bleeding with debridement: Mild Bleeding Controlled with: Pressure Patient tolerated procedure: Patient tolerated procedure well - Additional Wound Wound debrided: Abdomen ( Right lateral ) Type of Debridement: Excisional debridement Anesthesia Used: 4% Lidocaine Solution Depth: Down to and including healthy tissue, in the subcutaneous layer Percentage of wound debrided: 100 Instrument Used: 7mm curette Tissue Removed: Slouh and devitalized tissue Severity: Fat Layer Exposed Amount of bleeding with debridement: Mild Bleeding Controlled with: Pressure Patient tolerated procedure: Patient tolerated procedure well Assessment/Plan Active Problems (Last Reviewed 12/02/18 @ 13:26 by Holly Burden) 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 Procedure was well-tolerated. Yohana has made no significant change. Right medial ulcer and left lateral with worsening depth and circumference. No improvement in right lateral ulcer. I believe she would benefit from surgical debridement/panniculectomy. She is scheduled for a visit with Dr. Tafoya on Saturday. Vitals at this time are stable and ulcers are chronic. Continue Santyl to all ulcers. Strongly advised that she keep surrounding area and pannus dry. Antifungal powder recommended. Use of absorbable clothing (100% cotton materials)also discussed. Advised to avoid layering. Increased protein intake also recommended. She will continue with [facility] for wound care at home. She was also advised to go to the ER if notes worsening pain, chills, fever or any change in status. She expressed understanding. Prescription for Augmentin given based on current culture/sensitivity. All her questions were answered and she was advised to call with any further questions or concerns. Follow-up in 1 week. This note was generated with [employer] dictation software. It may contain incorrect words, spelling, and punctuation that were not noted in checking the note before signing.
[2018-12-15 11:02] VITALS: BP 127/63; PULSE 87; RESP 16; TEMP 37.1
--- NOTE | 2018-12-15 23:11 | PCM.WC.HP ---
History of Present Illness Date of Service: 12/15/18 - WOUND CENTER CONSULT Referring Physician: Dr. Wilson. PRISON LIBRARIAN: Dr. Tafoya. Chief Complaint: Nonhealing infected abdominal wall ulcers with panniculus. History of Wound: 80-year-old woman presented to the Wound Center with a large abdominal panniculus and associated multiple painful ulcerations that are infected. She had a wound culture in 10/10 which showed Pseudomonas aeroginosa, MRSE, Corynebacterium amycolatum, and Anaerobic cocci. She was placed on Cipro and Flagyl. Another wound culture in 11/10 showed MRSE again but it was felt to be a contaminant. Because of persistent pain and ulceration, another wound culture was done on 12/03/18. It showed Proteus mirabilis, MRSE, and Anaerobic cocci. She was placed on Augmentin. Will add Doxycycline today. At present, her wound care has been Santyl. She also has issues with fungal intertrigo for which powders and Diflucan have been ordered. With her large abdominal panniculus and associated painful symptomatology and infected ulcerations, I was asked to evaluate this patient for surgical options for treatment. 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 Arthritis. NonHodgkin's Lymphoma. ITP. Surgical History: no surgical history Allergies/Adverse Reactions: Allergies gentamicin Adverse Reaction (Verified 12/16/18 22:27) Unknown Home Medications: Ambulatory Orders Medication Instructions Recorded Cetirizine HCl [Zyrtec] 10 mg PO DAILY 06/20/16 Folic Acid/Vit B Complex and C 400 mcg PO DAILY 06/20/16 [B-Complex with Vit C Caplet] Vitamin E (Dl,Tocopheryl Acet) 400 unit PO DAILY 06/20/16 [E-200] artificial tears (hypromellose) 1 drp OPHTHALMIC ONCE 05/24/17 0.3 % eye gel prednisolone acetate 1 % eye 1 drp OPHTHALMIC Q4H 05/24/17 drops,suspension solifenacin 10 mg tablet 10 mg PO QDAY 07/16/17 multivitamin with minerals tablet 1 tab PO BID tab 09/04/18 docusate sodium 100 mg capsule 100 mg PO DAILY PRN cap 09/24/18 Krill Oil 500 mg PO DAILY 12/16/18 Levothyroxine Sodium [Synthroid] 100 mcg PO QDAY 12/16/18 Acetaminophen 500 mg PO BID PRN PRN 01/02/19 Benzonatate [Tessalon Perle] 100 mg PO TID PRN PRN 01/02/19 Bisacodyl 10 mg PA PRN PRN 01/02/19 Calcium Carbonate/Vitamin D3 1 ea PO DAILY 01/02/19 [Calcium 600 + Vit D Tablet] Ferrous Sulfate [Iron] 325 mg PO DAILY 01/02/19 Lisinopril 40 mg PO DAILY 01/02/19 Sennosides/Docusate Sodium 1 ea PO PRN PRN 01/02/19 [Senna-S Tablet] Sodium Chloride [Noé-128] 1 drp OP BID PRN PRN 01/02/19 traMADol [Ultram (G)] 50 mg PO Q6H PRN PRN 01/02/19 - Family History Paternal Family History: Family History (Last Reviewed 12/02/18 @ 13:26 by Holly Burden) Father Heart disease Cancer Mother No problems noted. Smoking Status: Never smoker Tobacco Use: Non-smoker Alcohol: None Drugs: None Review of Systems Constitutional: Reports: Fatigue. Denies: Fever, Weight Change Eyes: Denies: Pain HEENT: Denies: Nasal Congestion, Sore Throat Cardiovascular: Denies: Chest Pain Respiratory: Denies: Cough, Shortness of Breath Gastrointestinal: Denies: Constipation, Diarrhea, Nausea, Vomiting Genitourinary: Denies: Frequency, Hematuria Musculoskeletal: Reports: Joint Pain. Denies: Back Pain, Hand Pain, Leg Pain, Neck Pain Skin: Reports: Wounds - has multiple nonhealing infection abdominal wall ulcerations. Neurological: Denies: Headaches Psychiatric: Denies: Depression Endocrine: Denies: Polydipsia, Polyuria Hematologic/ Lymphatic: Reports: Easy Bruising - on Coumadin., - - has ITP and NonHodgkin's Lymphoma. - Physical Exam Vital Signs Temp Pulse Resp BP 98.7 F 87 16 127/63 H 12/15/18 11:02 12/15/18 11:02 12/15/18 11:02 12/15/18 11:02 General: Alert, Oriented x3 HEENT: PERRLA, EOMI Oral: Moist Mucosa Neck: Supple Lungs: Clear to auscultation Cardiovascular: Regular rate, Regular Rhythm Abdomen: Soft, Non-Distended, Tender - in the areas of the ulcerations., - - has large abdominal panniculus with associated abdominal wall skin crease intertrigo. Extremities: No clubbing, No cyanosis, Edema - mild edema in lower extremities., Peripheral Pulses Normal Skin: Ulcer/ Wound - has multiple nfected abdominal wall ulcerations., - - has abdominal wall skin crease intertrigo. Wound Measurements and Assessment WC - Nurse 1 - General Ulcer Measurement Start: 11/25/18 11:31 Freq: Status: Active Protocol: Activity Type Activity Date Activity User E-Sign Co-Sign Detail Recorded Client Recorded Date Recorded By Document 12/15/18 11:02 [facility] [id number] 12/15/18 11:15 [facility] 12/15/18 11:02 Wound Center Nurse 1 [Ulcer Assessment] 3-left side abdomen -Combined with other wound No -Current Size (cm) - Length 3.3 -Current Size (cm) - Width 6.2 -Current Size (cm) - Depth 1.2 -Total Square Cm 20.46 -Photo Taken No -Epithelialization None Present -Tunneling No -Undermining/Tunneling No -Circular Undermining No -Exudate Amt Large -Exudate Type Serosanguineous -Wound Margin Distinct, Outline Attached -Granulation Amt Small (1-33%) -Granulation Quality Red -Slough/Fibrin Yes -Necrosis Amt Large (67-100%) -Necrotic Tissue Type Eschar -Texture (Shanita-wound Skin Appearance) Assessed, Scarring -Moisture (Shanita-wound Skin Appearance Assessed ) -Color (Shanita-wound Skin Appearance) Erythema -Temperature (Shanita-wound Skin No Abnormality Appearance) (Pt Warm) -Tenderness on Palpation (Shanita-wound Yes Skin Appearance) -Ulcer Cleansing Rinsed/ Irrigated with Saline -Foul Odor after Cleansing No -Anesthetic Used 4% Lidocaine Solution #2 Right Lower Abdomen- Medial -Combined with other wound No -Current Size (cm) - Length 0.7 -Current Size (cm) - Width 3.7 -Current Size (cm) - Depth 0.2 -Total Square Cm 2.59 -Photo Taken No -Epithelialization None Present -Tunneling No -Undermining/Tunneling No -Circular Undermining No -Exudate Amt Medium -Exudate Type Serosanguineous -Wound Margin Distinct, Outline Attached -Granulation Amt Small (1-33%) -Granulation Quality Red -Slough/Fibrin Yes -Necrosis Amt Large (67-100%) -Necrotic Tissue Type Adherent Slough -Texture (Shanita-wound Skin Appearance) Assessed, Scarring -Moisture (Shanita-wound Skin Appearance Assessed ) -Color (Shanita-wound Skin Appearance) Assessed, Erythema -Temperature (Shanita-wound Skin No Abnormality Appearance) (Pt Warm) -Tenderness on Palpation (Shanita-wound Yes Skin Appearance) -Ulcer Cleansing Rinsed/ Irrigated with Saline -Foul Odor after Cleansing No -Anesthetic Used 4% Lidocaine Solution #1 Right Lower Abdomen- Lateral -Combined with other wound No -Current Size (cm) - Length 1 -Current Size (cm) - Width 3.5 -Current Size (cm) - Depth 0.4 -Total Square Cm 3.5 -Photo Taken No -Epithelialization None Present -Tunneling No -Undermining/Tunneling No -Circular Undermining No -Exudate Amt Medium -Exudate Type Serosanguineous -Wound Margin Distinct, Outline Attached -Granulation Amt Small (1-33%) -Granulation Quality Red -Slough/Fibrin Yes -Necrosis Amt Medium (34-66%) -Necrotic Tissue Type Adherent Slough -Texture (Shanita-wound Skin Appearance) Assessed, Scarring -Moisture (Shanita-wound Skin Appearance Assessed ) -Color (Shanita-wound Skin Appearance) Assessed, Erythema -Temperature (Shanita-wound Skin No Abnormality Appearance) (Pt Warm) -Tenderness on Palpation (Shanita-wound Yes Skin Appearance) -Ulcer Cleansing Rinsed/ Irrigated with Saline -Foul Odor after Cleansing No -Anesthetic Used 4% Lidocaine Solution WC - Nurse 2 - General Ulcer CM Notes Start: 11/25/18 11:31 Freq: Status: Active Protocol: Activity Type Activity Date Activity User E-Sign Co-Sign Detail Recorded Client Recorded Date Recorded By Document 12/15/18 11:59 ROMI [id number] 12/15/18 12:06 ROMI 12/15/18 11:59 Wound Center Nurse 2 [Procedure/Treatment] 3-left side abdomen -Time 12:05 -Correct Patient Yes -Correct Side, Site, Position Yes -Correct Procedure Yes -Procedure Performed Yes -Type of Procedure Debridement -Clinical Debridement Subcutaneous -Post Debridement Size (cm) - Length 3.4 -Post Debridement Size (cm) - Width 6.2 -Post Debridement Size (cm) - Depth 1.2 -Total Square Cm 21.08 -Wound/Ulcer Outcome Not Healed -Ulcer Cleansing Rinsed/ Irrigated with Saline -Foul Odor after Cleansing No -Bioengineered Tissue No -Bleeding Controlled with Pressure -Offloading No -Treatment Response Procedure Tolerated Well #2 Right Lower Abdomen- Medial -Time 12:05 -Correct Patient Yes -Correct Side, Site, Position Yes -Correct Procedure Yes -Procedure Performed Yes -Type of Procedure Debridement -Clinical Debridement Subcutaneous -Post Debridement Size (cm) - Length 0.8 -Post Debridement Size (cm) - Width 3.8 -Post Debridement Size (cm) - Depth 0.2 -Total Square Cm 3.04 -Wound/Ulcer Outcome Not Healed -Ulcer Cleansing Rinsed/ Irrigated with Saline -Foul Odor after Cleansing No -Bioengineered Tissue No -Bleeding Controlled with Pressure -Offloading No -Treatment Response Procedure Tolerated Well #1 Right Lower Abdomen- Lateral -Time 12:05 -Correct Patient Yes -Correct Side, Site, Position Yes -Correct Procedure Yes -Procedure Performed Yes -Type of Procedure Debridement -Clinical Debridement Subcutaneous -Post Debridement Size (cm) - Length 1.1 -Post Debridement Size (cm) - Width 3.5 -Post Debridement Size (cm) - Depth 0.5 -Total Square Cm 3.85 -Wound/Ulcer Outcome Not Healed -Ulcer Cleansing Rinsed/ Irrigated with Saline -Foul Odor after Cleansing No -Bioengineered Tissue No -Bleeding Controlled with Pressure -Offloading No -Treatment Response Procedure Tolerated Well [See Physician Procedure note for Specifics] Pain Scale: 0-10 Numeric [Pain] -Is Patient Pain Free? Yes Lymphatic: - - no inguinal adenopathy. Neurological: Cranial nerves II-XII grossly intact Psych/Mental Status: Normal Affect, Appropriate Debridement Note Post-Debridement Measurements/Treatment WC - Nurse 2 - General Ulcer CM Notes Start: 11/25/18 11:31 Freq: Status: Active Protocol: Activity Type Activity Date Activity User E-Sign Co-Sign Detail Recorded Client Recorded Date Recorded By Document 11/27/18 09:24 MW [id number] 11/27/18 09:35 MW Document 12/03/18 11:32 MW [id number] 12/03/18 11:47 MW Document 12/10/18 12:09 MW [id number] 12/10/18 12:19 MW Document 12/15/18 11:59 JF [id number] 12/15/18 12:06 JF 11/27/18 12/03/18 12/10/18 09:24 11:32 12:09 Wound Center Nurse 2 #4 R Lat ABD inf -Time 09:25 -Correct Patient Yes -Correct Side, Site, Position Yes -Correct Procedure Yes -Post Debridement Size (cm) - Length 0 -Post Debridement Size (cm) - Width 0 -Post Debridement Size (cm) - Depth 0 -Total Square Cm 0 -Wound/Ulcer Outcome Healed- Epithelialized -Ulcer Cleansing Rinsed/ Irrigated with Saline -Bleeding Controlled with NA -Treatment Response Procedure Tolerated Well 3-left side abdomen -Time 09: 11:35 12:10 -Correct Patient Yes Yes Yes -Correct Side, Site, Position Yes Yes Yes -Correct Procedure Yes Yes Yes -Procedure Performed Yes Yes Yes -Type of Procedure Debridement Debridement Debridement -Clinical Debridement Subcutaneous Subcutaneous Subcutaneous -Post Debridement Size (cm) - Length 2.0 2.0 4.0 -Post Debridement Size (cm) - Width 3.7 4.0 5.0 -Post Debridement Size (cm) - Depth 0.2 0.4 2.0 -Total Square Cm 7.40 8.00 20.00 -Wound/Ulcer Outcome Not Healed Not Healed Not Healed -Ulcer Cleansing Rinsed/ Rinsed/ Rinsed/ Irrigated with Irrigated with Irrigated with Saline Saline Saline -Foul Odor after Cleansing No No No -Bioengineered Tissue No No No -Bleeding Controlled with Pressure Pressure Pressure -Offloading No No No -Treatment Response Procedure Procedure Procedure Tolerated Well Tolerated Well Tolerated Well #2 Right Lower Abdomen- Medial -Time 09:26 11:36 12:10 -Correct Patient Yes Yes Yes -Correct Side, Site, Position Yes Yes Yes -Correct Procedure Yes Yes Yes -Procedure Performed Yes Yes Yes -Type of Procedure Debridement Debridement Debridement -Clinical Debridement Subcutaneous Subcutaneous Subcutaneous -Post Debridement Size (cm) - Length 1.5 1.7 1.3 -Post Debridement Size (cm) - Width 3.2 0.5 3.2 -Post Debridement Size (cm) - Depth 1.0 2.0 2.5 -Total Square Cm 4.80 0.85 4.16 -Wound/Ulcer Outcome Not Healed Not Healed Not Healed -Ulcer Cleansing Rinsed/ Rinsed/ Rinsed/ Irrigated with Irrigated with Irrigated with Saline Saline Saline -Foul Odor after Cleansing No No No -Bioengineered Tissue No No No -Bleeding Controlled with Pressure Pressure Pressure -Offloading No No No -Treatment Response Procedure Procedure Procedure Tolerated Well Tolerated Well Tolerated Well #1 Right Lower Abdomen- Lateral -Time 09:26 11:36 12:10 -Correct Patient Yes Yes Yes -Correct Side, Site, Position Yes Yes Yes -Correct Procedure Yes Yes Yes -Procedure Performed Yes Yes Yes -Type of Procedure Debridement Debridement Debridement -Clinical Debridement Subcutaneous Subcutaneous Subcutaneous -Post Debridement Size (cm) - Length 0.6 1.0 1.0 -Post Debridement Size (cm) - Width 3.0 3.0 3.0 -Post Debridement Size (cm) - Depth 0.1 0.2 0.2 -Total Square Cm 1.80 3.00 3.00 -Wound/Ulcer Outcome Not Healed Not Healed Not Healed -Ulcer Cleansing Rinsed/ Rinsed/ Rinsed/ Irrigated with Irrigated with Irrigated with Saline Saline Saline -Foul Odor after Cleansing No No No -Bioengineered Tissue No No No -Bleeding Controlled with Pressure Pressure Pressure -Offloading No No No -Treatment Response Procedure Procedure Procedure Tolerated Well Tolerated Well Tolerated Well Pain Scale: 0-10 Numeric Is Patient Pain Free? Yes Yes Yes 12/15/18 11:59 Wound Center Nurse 2 #4 R Lat ABD inf -Time -Correct Patient -Correct Side, Site, Position -Correct Procedure -Post Debridement Size (cm) - Length -Post Debridement Size (cm) - Width -Post Debridement Size (cm) - Depth -Total Square Cm -Wound/Ulcer Outcome -Ulcer Cleansing -Bleeding Controlled with -Treatment Response 3-left side abdomen -Time 12:05 -Correct Patient Yes -Correct Side, Site, Position Yes -Correct Procedure Yes -Procedure Performed Yes -Type of Procedure Debridement -Clinical Debridement Subcutaneous -Post Debridement Size (cm) - Length 3.4 -Post Debridement Size (cm) - Width 6.2 -Post Debridement Size (cm) - Depth 1.2 -Total Square Cm 21.08 -Wound/Ulcer Outcome Not Healed -Ulcer Cleansing Rinsed/ Irrigated with Saline -Foul Odor after Cleansing No -Bioengineered Tissue No -Bleeding Controlled with Pressure -Offloading No -Treatment Response Procedure Tolerated Well #2 Right Lower Abdomen- Medial -Time 12:05 -Correct Patient Yes -Correct Side, Site, Position Yes -Correct Procedure Yes -Procedure Performed Yes -Type of Procedure Debridement -Clinical Debridement Subcutaneous -Post Debridement Size (cm) - Length 0.8 -Post Debridement Size (cm) - Width 3.8 -Post Debridement Size (cm) - Depth 0.2 -Total Square Cm 3.04 -Wound/Ulcer Outcome Not Healed -Ulcer Cleansing Rinsed/ Irrigated with Saline -Foul Odor after Cleansing No -Bioengineered Tissue No -Bleeding Controlled with Pressure -Offloading No -Treatment Response Procedure Tolerated Well #1 Right Lower Abdomen- Lateral -Time 12:05 -Correct Patient Yes -Correct Side, Site, Position Yes -Correct Procedure Yes -Procedure Performed Yes -Type of Procedure Debridement -Clinical Debridement Subcutaneous -Post Debridement Size (cm) - Length 1.1 -Post Debridement Size (cm) - Width 3.5 -Post Debridement Size (cm) - Depth 0.5 -Total Square Cm 3.85 -Wound/Ulcer Outcome Not Healed -Ulcer Cleansing Rinsed/ Irrigated with Saline -Foul Odor after Cleansing No -Bioengineered Tissue No -Bleeding Controlled with Pressure -Offloading No -Treatment Response Procedure Tolerated Well Pain Scale: 0-10 Numeric Is Patient Pain Free? Yes Wound debrided: #1 Right lower lateral abdominal wall. Laterality: Right Wound Grade/Stage: 2. Type of Debridement: Excisional debridement Anesthesia Used: 4% Lidocaine Solution Depth: Down to and including healthy tissue, in the subcutaneous layer Percentage of wound debrided: 100 Instrument Used: 5mm curette Tissue Removed: subcutaneous tissue. Severity: Fat Layer Exposed Amount of bleeding with debridement: Mild Bleeding Controlled with: Pressure Patient tolerated procedure well - Additional Wound Wound debrided: #2 Right lower medial abdominal wall. Laterality: Right Wound Grade/Stage: 2. Type of Debridement: Excisional debridement Anesthesia Used: 4% Lidocaine Solution Depth: Down to and including healthy tissue, in the subcutaneous layer Percentage of wound debrided: 100 Instrument Used: 5mm curette Tissue Removed: subcutaneous tissue. Severity: Fat Layer Exposed Amount of bleeding with debridement: Mild Bleeding Controlled with: Pressure Patient tolerated procedure: Patient tolerated procedure well - Additional Wound Wound debrided: #4 Right lower inferolateral abdominal wall. Laterality: Right Wound Grade/Stage: 2. Type of Debridement: Excisional debridement Anesthesia Used: 4% Lidocaine Solution Depth: Down to and including healthy tissue, in the subcutaneous layer Percentage of wound debrided: 100 Instrument Used: 5mm curette Tissue Removed: subcutaneous tissue. Severity: Fat Layer Exposed Amount of bleeding with debridement: Mild Bleeding Controlled with: Pressure Patient tolerated procedure: Patient tolerated procedure well Assessment/Plan Assessment: 1. Nonhealing infected multiple abdominal ulcerations. 2. Abdominal panniculus. 3. Abdominal wall skin crease intertrigo. 4. FPC use of anticoagulation. Plan: Continue Santyl dressing changes daily. Recent wound cultures reviewed. Showed Proteus mirabilis, MRSE, and Anaerobic cocci. She was placed on Augmentin. Will add Doxycycline. With her large abdominal panniculus and recurring infected ulcerations with abscess, her ulcers will not heal without surgical intervention. Will need excisional debridement of skin, subcutaneous tissue, and fascia for suspected necrotizing infection and abdominal panniculectomy. Will leave the wound open initially and proceed with wound care with the VAC. After 4-6 weeks, can reassess for delayed complex secondary wound closure or possible skin grafting. Will check with her PCP regarding her Coumadin to see if we can safely stop it for the surgery. Surgery will be under general anesthesia with a surgical observation overnight stay in the hospital. Anticipate increased metabolic demands from the infection and the planned surgical wound. Will check a Prealbumin and encourage nutritional supplementation with protein to help the healing process. Patient was informed of the risks and complications of the procedure including alternatives to surgery. These were discussed with her personally. She voices understanding and wishes to proceed. Will schedule the surgery in the next couple of weeks. With the amount of pain she is having from these infected ulcerations, will write a script for Dilaudid for pain (40 tabs) and for Valium for spasm (30 tabs). Until then, followup one week for continued wound care.
== END 2018-12-22 23:59 ==
LOC: WC 11:15
PROVIDERS: Family Provider Family Medicine; PCP Family Medicine; Referring Provider Internal Medicine; Visit Provider Internal Medicine
DX: L98.492 Non-pressure chronic ulcer of skin of other sites with fat layer exposed (principal); Z79.01 Long term (current) use of anticoagulants; Z86.718 Personal history of other venous thrombosis and embolism; E65 Localized adiposity; L30.4 Erythema intertrigo
CPT/HCPCS: 11042; 11045; 36415; 85610; 87070; 87075; 87077; 87186; 87205; 97607; 99213; G0463

== ENCOUNTER 2018-12-16 22:19 | Emergency (ER) | payer MEDICARE, OTHER, SELFPAY ==
[2018-12-16 22:19] VITALS: BMI 30.2
[2018-12-16 22:21] VITALS: BP 126/64; PULSE 104; RESP 21; TEMP 37.1; O2SAT 98; BMI 29.7
[2018-12-16 22:29] VITALS: BP 126/64; PULSE 98; RESP 20; TEMP 37.1; O2SAT 97
--- NOTE | 2018-12-16 22:43 | EKG12_ITS ---
Test Reason : Blood Pressure : / mmHG Vent. Rate : 090 BPM Atrial Rate : 090 BPM P-R Int : 242 ms QRS Dur : 104 ms QT Int : 362 ms P-R-T Axes : 045 -11 044 degrees QTc Int : 442 ms Sinus rhythm with 1st degree A-V block Low voltage QRS Borderline ECG Confirmed by PAULINE PUENTES ([id number]), continuity editor MELANIA CHRISTOPHER ([id number]) on 12/23/2018 1:22:39 PM Referred By: ИРИНА Confirmed By:PAULINE PUENTES
--- NOTE | 2018-12-16 22:45 | ED.DCSUM_ITS ---
History of Present Illness Chief Complaint: GI Bleed Narrative: Patient is an 78-year-old female who presents with a dark tarry stool. She is a poor informant. She complains of nausea and vague epigastric discomfort today. Around 8 PM, 2 to 3 hours before presentation she had a single dark tarry stool. No bright red blood. No vomiting. She denies fever or chest pain. When asked if she is short of breath she initially said no and then said she did feel little bit short of breath this morning but then stated not really. No prior history of GI bleed. She is on warfarin due to a history of pulmonary embolism 20 years ago. She is also being treated for a necrotic left lower abdominal wall wound. She had debridement yesterday. She complains of pain associated with the debridement. She then stated she did not have any other abdominal pain although she had referenced some epigastric discomfort earlier. No diarrhea. She also complains of some dizziness which she describes as feeling lightheaded. However this is been a chronic issue. She states it may be a little worse today. Past Medical History - Allergies and Home Meds Allergies/Adverse Reactions: Allergies gentamicin Adverse Reaction (Verified 12/16/18 22:27) Unknown Primary Care Physician: Roosevelt Mahan DO [Primary Care Provider] - Past Medical History: - - Hypertension, left lower abdominal wall wound, hypothyroidism Smoking Status: Never smoker Review of Systems All systems negative except as indicated General: Denies: Fever Cardiovascular: Denies: Chest pain Respiratory: Reports: Dyspnea Gastrointestinal: Reports: Abdominal pain, Nausea, Melena. Denies: Vomiting Physical Exam Vital Signs/Narrative: Vital Signs Temp Pulse Resp BP Pulse Ox 12/16/18 22:29 98.7 F 98 20 H 126/64 H 97 12/16/18 22:21 98.7 F 104 H 21 H 126/64 H 98 Inital Vital Signs reviewed: Yes General: Well nourished Head: Normocephalic Eyes: EOMI ENT: Moist mucous membranes Neck: Supple Cardiovascular: - - Heart is regular tachycardia without murmur, gallop, rub, 2 out of 6 systolic murmur Respiratory: No distress, CTA bilaterally Abdomen: Soft, Nontender, - - Necrotic left lower abdominal wall wound, 2 separate clean-based abdominal wall wounds along the right side of the lower abdomen. Skin: Pallor Neurological: Alert Psychological: Normal affect Diagnostic/Tx/Re-eval Laboratory Results 12/16/18 12/16/18 12/16/18 23:10 23:10 23:10 WBC 19.7 H RBC 2.24 L Hgb 7.1 L Hct 21.2 L MCV 94.6 MCH 31.7 MCHC 33.5 RDW Std Deviation 42.2 RDW Coeff of Migd[place] 12.3 Plt Count 263 MPV 9.9 Immature Gran % (Auto) 0.700 Neut % (Auto) 88.9 H Lymph % (Auto) 2.7 L Ellis % (Auto) 7.2 Eos % (Auto) 0.3 Baso % (Auto) 0.2 Absolute Neuts (auto) 17.5 H Absolute Lymphs (auto) 0.54 L Nucleated RBC % 0 PT Cancelled INR Cancelled APTT Cancelled Sodium 137 Potassium 4.3 Chloride 105 Carbon Dioxide 27.0 Anion Gap 5 BUN 56 H Creatinine 1.37 H Estim Creat Clear Calc 23.52 Est GFR (MDRD) Af Amer 48 L Est GFR (MDRD) Non-Af 39 L BUN/Creatinine Ratio 40.9 H Glucose 116 H Calcium 8.6 Total Bilirubin 0.60 AST 25 ALT 16 Alkaline Phosphatase 164 H Total Protein 5.7 L Albumin 2.2 L Globulin 3.5 Albumin/Globulin Ratio 0.6 L Lipase 80 - Medical Decision Making Labs as above notable for significant leukocytosis with white count of 19.7, hemoglobin is 7.1. Lab called nursing to let them know the INR was 19. They are concerned that this could be laboratory error so I repeating it however given that the patient has obvious melanotic stool and anemia and patient reports that she has been having problems with her INR I believe this is the true value and initiated treatment. Vitamin K, FFP, packed red blood cells have been ordered. Patient is hemodynamically stable with a stable blood pressure and heart rate. Patient will be discussed with the hospitalist and admitted. Additionally her left lower abdominal wound appears infected and although she was on Augmentin as an outpatient she does not seem to be improving so I have ordered IV Zosyn. Patient was also given a Protonix bolus and infusion. ED Disposition - Plan for ED Patient: Disposition: Acute Care Hospital [facility] Diagnosis: Upper GI bleed, Infected wound, Warfarin-induced coagulopathy Referrals: Roosevelt Mahan, [Primary Care Provider] -
[2018-12-16] MEDS: 0.9% Normal Saline 1,000 ML 1000 ML IV (23:00)
[2018-12-16 23:23] LABS: Absolute Lymphocyte Count 0.54 X10^3/uL (0.83-4.51); Absolute Neutrophil Count 17.5 X10^3/uL (2.0-7.7); Basophil# 0.04 X10^3/uL; Basophil% 0.2 % (0-1); Eosinophil# 0.06 X10^3/uL; Eosinophils% 0.3 % (0-5); Hematocrit 21.2 % (37-47); Hemoglobin 7.1 g/dL (12.0-15.0); Lymphocyte # 0.54 X10^3/ul (4.0); Lymphocyte % 2.7 % (19-41); Mean Corp Hgb Conc 33.5 g/dL (32-36); Mean Corpuscular Hgb 31.7 pg (27.0-32.0); Mean Corpuscular Volume 94.6 fL (81-99); Mean Platelet Vol. 9.9 fl (6.2-12.0); Monocyte# 1.42 X10^3/uL; Monocyte% 7.2 % (0-10); NRBC Flagged by Analyzer 0 % (0-5); Neutrophil # 17.46 X10^3/uL (2.7-7.7); Neutrophil % 88.9 % (47-70); POSITIVE DIFFERENTIAL YES; Platelet Count 263 K/mm3 (150-450); RBC Distribution Width CV 12.3 % (11.6-14.6); RBC Distribution Width SD 42.2 fl (35.1-43.9); Red Blood Count 2.24 M/mm3 (4.2-5.4); White Blood Count 19.7 K/mm3 (4.4-11.0)
[2018-12-16 23:31] LABS: Differential Indicated SCAN CRITERIA MET
[2018-12-16 23:36] LABS: ALB/GLOB Ratio 0.6 RATIO (0.9-2.4); AST(SGOT) 25 U/L (15-37); Alanine Aminotransfer ALT/SGPT 16 U/L (13-56); Albumin, Serum 2.2 g/dL (3.2-5.0); Alkaline Phosphatase 164 U/L (45-117); Anion Gap 5 (5-15); BUN 56 mg/dL (7-18); BUN/Creat Ratio 40.9 RATIO (10-20); Calcium,Total 8.6 mg/dL (8.5-10.1); Chloride 105 mmol/L (98-107); Creatinine, Serum 1.37 mg/dL (0.55-1.02); EST Glomerular Filtration Rate 39 mL/min (>60); Est Glom Filt Rate - Afr Amer 48 mL/min (>60); Estimated Creatinine Clearance 23.52 ml/min; Globulin 3.5 g/dL (2.2-4.2); Glucose 116 mg/dL (74-106); Lipase 80 U/L (73-393); Potassium 4.3 mmol/L (3.5-5.1); Protein, Total 5.7 g/dL (6.4-8.2); Sodium Level 137 mmol/L (136-145)
[2018-12-17 00:20] VITALS: BP 94/49; PULSE 89; RESP 20; O2SAT 94
[2018-12-17] MEDS: Vancomycin IV 1,000 MG/200 ML BAG 200 MG IV (00:37)
[2018-12-17 00:38] LABS: Prothrombin Time (Protime)PT. > 120.0 SECONDS (11.7-14.9)
[2018-12-17 00:40] LABS: International Normalized Ratio > 19.5; Partial Thromboplast Time 167.3 Seconds (24.1-36.2)
[2018-12-17] MEDS: Morphine 4 MG/ML Syringe IV (00:41)
[2018-12-17] MEDS: Ondansetron 4 MG/2 ML Vial IV (00:42)
[2018-12-17 02:00] VITALS: BP 101/49; PULSE 86; RESP 17; O2SAT 95
== END 2018-12-17 02:10 | disposition short-term general hospital (02) ==
PROVIDERS: Emergency Provider Emergency Medicine; Family Provider Family Medicine; PCP Family Medicine
DX: K92.2 Gastrointestinal hemorrhage, unspecified (principal); S31.104A Unspecified open wound of abdominal wall, left lower quadrant without penetration into peritoneal cavity, initial encounter; L08.9 Local infection of the skin and subcutaneous tissue, unspecified; I96 Gangrene, not elsewhere classified; X58.XXXA Exposure to other specified factors, initial encounter; Y93.9 Activity, unspecified; Y92.9 Unspecified place or not applicable; D68.32 Hemorrhagic disorder due to extrinsic circulating anticoagulants; T45.515A Adverse effect of anticoagulants, initial encounter; D64.9 Anemia, unspecified; I10 Essential (primary) hypertension; E03.9 Hypothyroidism, unspecified; R01.1 Cardiac murmur, unspecified; Z86.711 Personal history of pulmonary embolism; Z79.899 Other long term (current) drug therapy
CPT/HCPCS: 80053; 83690; 85025; 85610; 85730; 86850; 86900; 86901; 86920; 87070; 87077; 87186; 87205; 93005; 96361; 96365; 96366; 96367; 96368; 96375; 99285; J7030; P9017; A4216; J2405; J3490

== ENCOUNTER 2019-01-05 08:13 | Inpatient (IN) | payer MEDICARE, OTHER, SELFPAY ==
[2018-12-25 09:18] VITALS: BMI 29.7
[2018-12-31 10:21] VITALS: BMI 29.7
--- NOTE | 2019-01-04 21:46 | PCM.HP.BLA ---
History and Physical Date of Admission: 01/05/19 Date: 12/15/18 23:11Initialization Date: 12/15/18 23:11 History of Present Illness Date of Service: 12/15/18 - WOUND CENTER CONSULT Referring Physician: Dr. Wilson. DRAPERY INSTALLER: Dr. Tafoya. Chief Complaint: Nonhealing infected abdominal wall ulcers with panniculus. History of Wound: 80-year-old woman presented to the Wound Center with a large abdominal panniculus and associated multiple painful ulcerations that are infected. She had a wound culture in 10/10 which showed Pseudomonas aeroginosa, MRSE, Corynebacterium amycolatum, and Anaerobic cocci. She was placed on Cipro and Flagyl. Another wound culture in 11/10 showed MRSE again but it was felt to be a contaminant. Because of persistent pain and ulceration, another wound culture was done on 12/03/18. It showed Proteus mirabilis, MRSE, and Anaerobic cocci. She was placed on Augmentin. Will add Doxycycline today. At present, her wound care has been Santyl. She also has issues with fungal intertrigo for which powders and Diflucan have been ordered. With her large abdominal panniculus and associated painful symptomatology and infected ulcerations, I was asked to evaluate this patient for surgical options for treatment. 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 Arthritis. NonHodgkin's Lymphoma. ITP. Surgical History: no surgical history Allergies/Adverse Reactions: Allergies gentamicin Adverse Reaction (Verified 12/16/18 22:27) Unknown Home Medications: Ambulatory Orders Medication Instructions Recorded Cetirizine HCl [Zyrtec] 10 mg PO DAILY 06/20/16 Folic Acid/Vit B Complex and C 400 mcg PO DAILY 06/20/16 [B-Complex with Vit C Caplet] Vitamin E (Dl,Tocopheryl Acet) 400 unit PO DAILY 06/20/16 [E-200] artificial tears (hypromellose) 1 drp OPHTHALMIC ONCE 05/24/17 0.3 % eye gel prednisolone acetate 1 % eye 1 drp OPHTHALMIC Q4H 05/24/17 drops,suspension solifenacin 10 mg tablet 10 mg PO QDAY 07/16/17 multivitamin with minerals tablet 1 tab PO BID tab 09/04/18 docusate sodium 100 mg capsule 100 mg PO DAILY PRN cap 09/24/18 Krill Oil 500 mg PO DAILY 12/16/18 Levothyroxine Sodium [Synthroid] 100 mcg PO QDAY 12/16/18 Acetaminophen 500 mg PO BID PRN PRN 01/02/19 Benzonatate [Tessalon Perle] 100 mg PO TID PRN PRN 01/02/19 Bisacodyl 10 mg NE PRN PRN 01/02/19 Calcium Carbonate/Vitamin D3 1 ea PO DAILY 01/02/19 [Calcium 600 + Vit D Tablet] Ferrous Sulfate [Iron] 325 mg PO DAILY 01/02/19 Lisinopril 40 mg PO DAILY 01/02/19 Sennosides/Docusate Sodium 1 ea PO PRN PRN 01/02/19 [Senna-S Tablet] Sodium Chloride [Noé-128] 1 drp OP BID PRN PRN 01/02/19 traMADol [Ultram (G)] 50 mg PO Q6H PRN PRN 01/02/19 - Family History Paternal Family History: Family History (Last Reviewed 12/02/18 @ 13:26 by Holly Burden) Father Heart disease Cancer Mother No problems noted. Smoking Status: Never smoker Tobacco Use: Non-smoker Alcohol: None Drugs: None Review of Systems Constitutional: Reports: Fatigue. Denies: Fever, Weight Change Eyes: Denies: Pain HEENT: Denies: Nasal Congestion, Sore Throat Cardiovascular: Denies: Chest Pain Respiratory: Denies: Cough, Shortness of Breath Gastrointestinal: Denies: Constipation, Diarrhea, Nausea, Vomiting Genitourinary: Denies: Frequency, Hematuria Musculoskeletal: Reports: Joint Pain. Denies: Back Pain, Hand Pain, Leg Pain, Neck Pain Skin: Reports: Wounds - has multiple nonhealing infection abdominal wall ulcerations. Neurological: Denies: Headaches Psychiatric: Denies: Depression Endocrine: Denies: Polydipsia, Polyuria Hematologic/ Lymphatic: Reports: Easy Bruising - on Coumadin., - - has ITP and NonHodgkin's Lymphoma. - Physical Exam Vital Signs Temp Pulse Resp BP 98.7 F 87 16 127/63 H 12/15/18 11:02 12/15/18 11:02 12/15/18 11:02 12/15/18 11:02 General: Alert, Oriented x3 HEENT: PERRLA, EOMI Oral: Moist Mucosa Neck: Supple Lungs: Clear to auscultation Cardiovascular: Regular rate, Regular Rhythm Abdomen: Soft, Non-Distended, Tender - in the areas of the ulcerations., - - has large abdominal panniculus with associated abdominal wall skin crease intertrigo. Extremities: No clubbing, No cyanosis, Edema - mild edema in lower extremities., Peripheral Pulses Normal Skin: Ulcer/ Wound - has multiple nfected abdominal wall ulcerations., - - has abdominal wall skin crease intertrigo. Wound Measurements and Assessment WC - Nurse 1 - General Ulcer Measurement Start: 11/25/18 11:31 Freq: Status: Active Protocol: Activity Type Activity Date Activity User E-Sign Co-Sign Detail Recorded Client Recorded Date Recorded By Document 12/15/18 11:02 [facility] [id number] 12/15/18 11:15 [facility] 12/15/18 11:02 Wound Center Nurse 1 [Ulcer Assessment] 3-left side abdomen -Combined with other wound No -Current Size (cm) - Length 3.3 -Current Size (cm) - Width 6.2 -Current Size (cm) - Depth 1.2 -Total Square Cm 20.46 -Photo Taken No -Epithelialization None Present -Tunneling No -Undermining/Tunneling No -Circular Undermining No -Exudate Amt Large -Exudate Type Serosanguineous -Wound Margin Distinct, Outline Attached -Granulation Amt Small (1-33%) -Granulation Quality Red -Slough/Fibrin Yes -Necrosis Amt Large (67-100%) -Necrotic Tissue Type Eschar -Texture (Shanita-wound Skin Appearance) Assessed, Scarring -Moisture (Shanita-wound Skin Appearance Assessed ) -Color (Shanita-wound Skin Appearance) Erythema -Temperature (Shanita-wound Skin No Abnormality Appearance) (Pt Warm) -Tenderness on Palpation (Shanita-wound Yes Skin Appearance) -Ulcer Cleansing Rinsed/ Irrigated with Saline -Foul Odor after Cleansing No -Anesthetic Used 4% Lidocaine Solution #2 Right Lower Abdomen- Medial -Combined with other wound No -Current Size (cm) - Length 0.7 -Current Size (cm) - Width 3.7 -Current Size (cm) - Depth 0.2 -Total Square Cm 2.59 -Photo Taken No -Epithelialization None Present -Tunneling No -Undermining/Tunneling No -Circular Undermining No -Exudate Amt Medium -Exudate Type Serosanguineous -Wound Margin Distinct, Outline Attached -Granulation Amt Small (1-33%) -Granulation Quality Red -Slough/Fibrin Yes -Necrosis Amt Large (67-100%) -Necrotic Tissue Type Adherent Slough -Texture (Shanita-wound Skin Appearance) Assessed, Scarring -Moisture (Shanita-wound Skin Appearance Assessed ) -Color (Shanita-wound Skin Appearance) Assessed, Erythema -Temperature (Shanita-wound Skin No Abnormality Appearance) (Pt Warm) -Tenderness on Palpation (Shanita-wound Yes Skin Appearance) -Ulcer Cleansing Rinsed/ Irrigated with Saline -Foul Odor after Cleansing No -Anesthetic Used 4% Lidocaine Solution #1 Right Lower Abdomen- Lateral -Combined with other wound No -Current Size (cm) - Length 1 -Current Size (cm) - Width 3.5 -Current Size (cm) - Depth 0.4 -Total Square Cm 3.5 -Photo Taken No -Epithelialization None Present -Tunneling No -Undermining/Tunneling No -Circular Undermining No -Exudate Amt Medium -Exudate Type Serosanguineous -Wound Margin Distinct, Outline Attached -Granulation Amt Small (1-33%) -Granulation Quality Red -Slough/Fibrin Yes -Necrosis Amt Medium (34-66%) -Necrotic Tissue Type Adherent Slough -Texture (Shanita-wound Skin Appearance) Assessed, Scarring -Moisture (Shanita-wound Skin Appearance Assessed ) -Color (Shanita-wound Skin Appearance) Assessed, Erythema -Temperature (Shaniat-wound Skin No Abnormality Appearance) (Pt Warm) -Tenderness on Palpation (Shanita-wound Yes Skin Appearance) -Ulcer Cleansing Rinsed/ Irrigated with Saline -Foul Odor after Cleansing No -Anesthetic Used 4% Lidocaine Solution WC - Nurse 2 - General Ulcer CM Notes Start: 11/25/18 11:31 Freq: Status: Active Protocol: Activity Type Activity Date Activity User E-Sign Co-Sign Detail Recorded Client Recorded Date Recorded By Document 12/15/18 11:59 ROMI [id number] 12/15/18 12:06 ROMI 12/15/18 11:59 Wound Center Nurse 2 [Procedure/Treatment] 3-left side abdomen -Time 12:05 -Correct Patient Yes -Correct Side, Site, Position Yes -Correct Procedure Yes -Procedure Performed Yes -Type of Procedure Debridement -Clinical Debridement Subcutaneous -Post Debridement Size (cm) - Length 3.4 -Post Debridement Size (cm) - Width 6.2 -Post Debridement Size (cm) - Depth 1.2 -Total Square Cm 21.08 -Wound/Ulcer Outcome Not Healed -Ulcer Cleansing Rinsed/ Irrigated with Saline -Foul Odor after Cleansing No -Bioengineered Tissue No -Bleeding Controlled with Pressure -Offloading No -Treatment Response Procedure Tolerated Well #2 Right Lower Abdomen- Medial -Time 12:05 -Correct Patient Yes -Correct Side, Site, Position Yes -Correct Procedure Yes -Procedure Performed Yes -Type of Procedure Debridement -Clinical Debridement Subcutaneous -Post Debridement Size (cm) - Length 0.8 -Post Debridement Size (cm) - Width 3.8 -Post Debridement Size (cm) - Depth 0.2 -Total Square Cm 3.04 -Wound/Ulcer Outcome Not Healed -Ulcer Cleansing Rinsed/ Irrigated with Saline -Foul Odor after Cleansing No -Bioengineered Tissue No -Bleeding Controlled with Pressure -Offloading No -Treatment Response Procedure Tolerated Well #1 Right Lower Abdomen- Lateral -Time 12:05 -Correct Patient Yes -Correct Side, Site, Position Yes -Correct Procedure Yes -Procedure Performed Yes -Type of Procedure Debridement -Clinical Debridement Subcutaneous -Post Debridement Size (cm) - Length 1.1 -Post Debridement Size (cm) - Width 3.5 -Post Debridement Size (cm) - Depth 0.5 -Total Square Cm 3.85 -Wound/Ulcer Outcome Not Healed -Ulcer Cleansing Rinsed/ Irrigated with Saline -Foul Odor after Cleansing No -Bioengineered Tissue No -Bleeding Controlled with Pressure -Offloading No -Treatment Response Procedure Tolerated Well [See Physician Procedure note for Specifics] Pain Scale: 0-10 Numeric [Pain] -Is Patient Pain Free? Yes Lymphatic: - - no inguinal adenopathy. Neurological: Cranial nerves II-XII grossly intact Psych/Mental Status: Normal Affect, Appropriate Debridement Note Post-Debridement Measurements/Treatment WC - Nurse 2 - General Ulcer CM Notes Start: 11/25/18 11:31 Freq: Status: Active Protocol: Activity Type Activity Date Activity User E-Sign Co-Sign Detail Recorded Client Recorded Date Recorded By Document 11/27/18 09:24 MW [id number] 11/27/18 09:35 MW Document 12/03/18 11:32 MW [id number] 12/03/18 11:47 MW Document 12/10/18 12:09 MW [id number] 12/10/18 12:19 MW Document 12/15/18 11:59 JF [id number] 12/15/18 12:06 JF 11/27/18 12/03/18 12/10/18 09:24 11:32 12:09 Wound Center Nurse 2 #4 R Lat ABD inf -Time 09:25 -Correct Patient Yes -Correct Side, Site, Position Yes -Correct Procedure Yes -Post Debridement Size (cm) - Length 0 -Post Debridement Size (cm) - Width 0 -Post Debridement Size (cm) - Depth 0 -Total Square Cm 0 -Wound/Ulcer Outcome Healed- Epithelialized -Ulcer Cleansing Rinsed/ Irrigated with Saline -Bleeding Controlled with NA -Treatment Response Procedure Tolerated Well 3-left side abdomen -Time 09:26 11:35 12:10 -Correct Patient Yes Yes Yes -Correct Side, Site, Position Yes Yes Yes -Correct Procedure Yes Yes Yes -Procedure Performed Yes Yes Yes -Type of Procedure Debridement Debridement Debridement -Clinical Debridement Subcutaneous Subcutaneous Subcutaneous -Post Debridement Size (cm) - Length 2.0 2.0 4.0 -Post Debridement Size (cm) - Width 3.7 4.0 5.0 -Post Debridement Size (cm) - Depth 0.2 0.4 2.0 -Total Square Cm 7.40 8.00 20.00 -Wound/Ulcer Outcome Not Healed Not Healed Not Healed -Ulcer Cleansing Rinsed/ Rinsed/ Rinsed/ Irrigated with Irrigated with Irrigated with Saline Saline Saline -Foul Odor after Cleansing No No No -Bioengineered Tissue No No No -Bleeding Controlled with Pressure Pressure Pressure -Offloading No No No -Treatment Response Procedure Procedure Procedure Tolerated Well Tolerated Well Tolerated Well #2 Right Lower Abdomen- Medial -Time 09: 11:36 12:10 -Correct Patient Yes Yes Yes -Correct Side, Site, Position Yes Yes Yes -Correct Procedure Yes Yes Yes -Procedure Performed Yes Yes Yes -Type of Procedure Debridement Debridement Debridement -Clinical Debridement Subcutaneous Subcutaneous Subcutaneous -Post Debridement Size (cm) - Length 1.5 1.7 1.3 -Post Debridement Size (cm) - Width 3.2 0.5 3.2 -Post Debridement Size (cm) - Depth 1.0 2.0 2.5 -Total Square Cm 4.80 0.85 4.16 -Wound/Ulcer Outcome Not Healed Not Healed Not Healed -Ulcer Cleansing Rinsed/ Rinsed/ Rinsed/ Irrigated with Irrigated with Irrigated with Saline Saline Saline -Foul Odor after Cleansing No No No -Bioengineered Tissue No No No -Bleeding Controlled with Pressure Pressure Pressure -Offloading No No No -Treatment Response Procedure Procedure Procedure Tolerated Well Tolerated Well Tolerated Well #1 Right Lower Abdomen- Lateral -Time 09: 11:36 12:10 -Correct Patient Yes Yes Yes -Correct Side, Site, Position Yes Yes Yes -Correct Procedure Yes Yes Yes -Procedure Performed Yes Yes Yes -Type of Procedure Debridement Debridement Debridement -Clinical Debridement Subcutaneous Subcutaneous Subcutaneous -Post Debridement Size (cm) - Length 0.6 1.0 1.0 -Post Debridement Size (cm) - Width 3.0 3.0 3.0 -Post Debridement Size (cm) - Depth 0.1 0.2 0.2 -Total Square Cm 1.80 3.00 3.00 -Wound/Ulcer Outcome Not Healed Not Healed Not Healed -Ulcer Cleansing Rinsed/ Rinsed/ Rinsed/ Irrigated with Irrigated with Irrigated with Saline Saline Saline -Foul Odor after Cleansing No No No -Bioengineered Tissue No No No -Bleeding Controlled with Pressure Pressure Pressure -Offloading No No No -Treatment Response Procedure Procedure Procedure Tolerated Well Tolerated Well Tolerated Well Pain Scale: 0-10 Numeric Is Patient Pain Free? Yes Yes Yes 12/15/18 11:59 Wound Center Nurse 2 #4 R Lat ABD inf -Time -Correct Patient -Correct Side, Site, Position -Correct Procedure -Post Debridement Size (cm) - Length -Post Debridement Size (cm) - Width -Post Debridement Size (cm) - Depth -Total Square Cm -Wound/Ulcer Outcome -Ulcer Cleansing -Bleeding Controlled with -Treatment Response 3-left side abdomen -Time 12:05 -Correct Patient Yes -Correct Side, Site, Position Yes -Correct Procedure Yes -Procedure Performed Yes -Type of Procedure Debridement -Clinical Debridement Subcutaneous -Post Debridement Size (cm) - Length 3.4 -Post Debridement Size (cm) - Width 6.2 -Post Debridement Size (cm) - Depth 1.2 -Total Square Cm 21.08 -Wound/Ulcer Outcome Not Healed -Ulcer Cleansing Rinsed/ Irrigated with Saline -Foul Odor after Cleansing No -Bioengineered Tissue No -Bleeding Controlled with Pressure -Offloading No -Treatment Response Procedure Tolerated Well #2 Right Lower Abdomen- Medial -Time 12:05 -Correct Patient Yes -Correct Side, Site, Position Yes -Correct Procedure Yes -Procedure Performed Yes -Type of Procedure Debridement -Clinical Debridement Subcutaneous -Post Debridement Size (cm) - Length 0.8 -Post Debridement Size (cm) - Width 3.8 -Post Debridement Size (cm) - Depth 0.2 -Total Square Cm 3.04 -Wound/Ulcer Outcome Not Healed -Ulcer Cleansing Rinsed/ Irrigated with Saline -Foul Odor after Cleansing No -Bioengineered Tissue No -Bleeding Controlled with Pressure -Offloading No -Treatment Response Procedure Tolerated Well #1 Right Lower Abdomen- Lateral -Time 12:05 -Correct Patient Yes -Correct Side, Site, Position Yes -Correct Procedure Yes -Procedure Performed Yes -Type of Procedure Debridement -Clinical Debridement Subcutaneous -Post Debridement Size (cm) - Length 1.1 -Post Debridement Size (cm) - Width 3.5 -Post Debridement Size (cm) - Depth 0.5 -Total Square Cm 3.85 -Wound/Ulcer Outcome Not Healed -Ulcer Cleansing Rinsed/ Irrigated with Saline -Foul Odor after Cleansing No -Bioengineered Tissue No -Bleeding Controlled with Pressure -Offloading No -Treatment Response Procedure Tolerated Well Pain Scale: 0-10 Numeric Is Patient Pain Free? Yes Wound debrided: #1 Right lower lateral abdominal wall. Laterality: Right Wound Grade/Stage: 2. Type of Debridement: Excisional debridement Anesthesia Used: 4% Lidocaine Solution Depth: Down to and including healthy tissue, in the subcutaneous layer Percentage of wound debrided: 100 Instrument Used: 5mm curette Tissue Removed: subcutaneous tissue. Severity: Fat Layer Exposed Amount of bleeding with debridement: Mild Bleeding Controlled with: Pressure Patient tolerated procedure well - Additional Wound Wound debrided: #2 Right lower medial abdominal wall. Laterality: Right Wound Grade/Stage: 2. Type of Debridement: Excisional debridement Anesthesia Used: 4% Lidocaine Solution Depth: Down to and including healthy tissue, in the subcutaneous layer Percentage of wound debrided: 100 Instrument Used: 5mm curette Tissue Removed: subcutaneous tissue. Severity: Fat Layer Exposed Amount of bleeding with debridement: Mild Bleeding Controlled with: Pressure Patient tolerated procedure: Patient tolerated procedure well - Additional Wound Wound debrided: #4 Right lower inferolateral abdominal wall. Laterality: Right Wound Grade/Stage: 2. Type of Debridement: Excisional debridement Anesthesia Used: 4% Lidocaine Solution Depth: Down to and including healthy tissue, in the subcutaneous layer Percentage of wound debrided: 100 Instrument Used: 5mm curette Tissue Removed: subcutaneous tissue. Severity: Fat Layer Exposed Amount of bleeding with debridement: Mild Bleeding Controlled with: Pressure Patient tolerated procedure: Patient tolerated procedure well Assessment/Plan Assessment: 1. Nonhealing infected multiple abdominal ulcerations. 2. Abdominal panniculus. 3. Abdominal wall skin crease intertrigo. 4. assisted use of anticoagulation. Plan: Continue Santyl dressing changes daily. Recent wound cultures reviewed. Showed Proteus mirabilis, MRSE, and Anaerobic cocci. She was placed on Augmentin. Will add Doxycycline. With her large abdominal panniculus and recurring infected ulcerations with abscess, her ulcers will not heal without surgical intervention. Will need excisional debridement of skin, subcutaneous tissue, and fascia for suspected necrotizing infection and abdominal panniculectomy. Will leave the wound open initially and proceed with wound care with the VAC. After 4-6 weeks, can reassess for delayed complex secondary wound closure or possible skin grafting. Will check with her PCP regarding her Coumadin to see if we can safely stop it for the surgery. Surgery will be under general anesthesia with a surgical observation overnight stay in the hospital. Anticipate increased metabolic demands from the infection and the planned surgical wound. Will check a Prealbumin and encourage nutritional supplementation with protein to help the healing process. Patient was informed of the risks and complications of the procedure including alternatives to surgery. These were discussed with her personally. She voices understanding and wishes to proceed. Will schedule the surgery in the next couple of weeks. With the amount of pain she is having from these infected ulcerations, will write a script for Dilaudid for pain (40 tabs) and for Valium for spasm (30 tabs). Until then, followup one week for continued wound care.
[2019-01-05] VITALS (14 sets, daily range): BP systolic 113–161; BP diastolic 53–76; PULSE 75–92; RESP 16–18; TEMP 36.4–37.3; O2SAT 92–100; BMI 30.1
[2019-01-05] MEDS: Vancomycin IV 1,000 MG/200 ML BAG 200 MG IV (09:04)
[2019-01-05] MEDS: Lactated Ringers 1,000 ML 100 ML IV (09:05)
[2019-01-05] MEDS: Ipratropium/Albuterol Sulfate 3 ML AMPUL.NEB INHALATION (09:42)
--- NOTE | 2019-01-05 10:15 | SOF_PTH ---
PATIENT: JEAN PAUL LICEA LOC: [facility] U#:[id number] AGE/SX: 78/F ROOM: [facility] RE01/05/[address]: Dr. Félix Tafoya MD : 1940 BED: 1 DIS: 01/07/2019 SPEC #: [id number] RECD: 01/05/19 16:17 STATUS: DARCY REQ #: [id number] EMETERIO: 01/05/19 10:[address]: Félix Tafoya DEPT: SURGICAL PATHOLOGY RECD BY: Hector Johnson ENTERED: 01/06/19 09:51 SP TYPE: SOFT TISS OTHR DR: MD Dr. Roosevelt Johnson Dr., DO Daniel Manz, MD Dr. Nicholas F Kotsonis, MD Tissues: Abdomen, NOS Procedures: Decalcification bone/plaque Surgery Specimen Level III HEADER OPERATION: Surgical prep lower abdominal wall with debridement skin PRE-OP DIAGNOSIS: Necrotizing soft tissue infection (chronic); skin ulcer of abdominal wall with fat layer exposed (chronic); intertriginous dermatitis (chronic) TISSUE SUBMITTED: Abdominal soft tissue infected ulcer and abscess MICROSCOPIC DIAGNOSIS Abdominal soft tissue infected ulcer and abscess, debridement: Pieces of skin with extensive ulceration, associated acute inflammation, granulation tissue reaction and underlying tissue with fat necrosis and focal calcification. CHILANGO:albert 01/09/19 MICROSCOPIC DESCRIPTION Slides are reviewed. GROSS DESCRIPTION Received in fixative is one container labeled with the patient's name and designated abdominal soft tissue. The specimen consists of two irregular fragments of skin with attached yellow fatty tissue. One fragment measures 23 x 16 x 5 cm and the other fragment measures 22 x 12 x 4 cm. The fragments contain cutaneous ulcers (three) ranging in size from 4 cm to 6 cm in greatest dimension. These ulcers vary in depth from 0.8 to 2 cm. Serial sections do not reveal mass lesions. The third largest ulcer contains a focus of gritty tissue, possibly representing fat necrosis and associated calcific change. Contract Technical Writer sections are submitted in four cassettes as follows: 1 - largest ulcer, 2 - second largest ulcer, 3 - third largest ulcer, 4 - third largest ulcer with area of calcific change submitted after decalcification. / AM:albert 01/06/19 TC:2 CPT:
--- NOTE | 2019-01-05 14:20 | PCM.OPRPT ---
Report of Operation Date of Procedure: 01/05/19 Pre-Operative Diagnosis: 1. Nonhealing infected multiple abdominal ulcerations. 2. Abdominal panniculus. 3. Abdominal wall skin crease intertrigo. 4. senior living use of anticoagulation. Post-Operative Diagnosis: 1. Nonhealing infected multiple abdominal ulceration abscesses. 2. 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 3. Abdominal panniculus. 4. Abdominal wall skin crease intertrigo. 5. senior living use of anticoagulation. Surgery/Procedure Performed:: 1. Surgical preparation lower anterior abdominal wall with excisional debridement skin, subcutaneous tissue, and fascia for necrotizing soft tissue infection abscess ulcers (588 cm2). 2. Abdominal panniculectomy. Description of Surgical Findings:: 80-year-old woman presented [facility] with a large abdominal panniculus and associated multiple painful ulcerations that are infected. She had a wound culture in 10/10 which showed Pseudomonas aeroginosa, MRSE, Corynebacterium amycolatum, and Anaerobic cocci. She was placed on Cipro and Flagyl. Another wound culture in 11/10 showed MRSE again but it was felt to be a contaminant. Because of persistent pain and ulceration, another wound culture was done on 12/03/18. It showed Proteus mirabilis, MRSE, and Anaerobic cocci. She was placed on Augmentin. Will add Doxycycline today. At present, her wound care has been Santyl. She also has issues with fungal intertrigo for which powders and Diflucan have been ordered. With her large abdominal panniculus and associated painful symptomatology and infected ulcerations, I was asked to evaluate this patient for surgical options for treatment. Patient was informed of the risks and complications of the procedure including alternatives to surgery. These were discussed with the patient personally. Patient voices understanding and wishes to proceed. Size of defect lower anterior abdominal wall - 49 x 12 x 4 cm. landscape contractor: None Type of Anesthesia:: General Specimen's removed: Necrotizing soft tissue infection abscess ulcers lower anterior abdominal wall to Pathology and Microbiology. Drains: None. Estimated Blood Loss (mL): 250 ml. Description of Procedure: Patient was taken to OR in supine position and was placed under general anesthesia. The abdominal wall was prepped and draped in the usual fashion. SCD's were placed for DVT prophylaxis. Perioperative antibiotics were given intravenously. I proceeded with excisional debridement of the nonhealing infection abscess ulcers down into the subcutaneous tissue. A lot of extensive fat necrosis was present. No pus was seen. The fat necrosis extended past Hanane's fascia down to the abdominal wall fascia. This extensive fat necrosis was excised and debrided. She also has extensive abdominal wall skin crease intertrigo, and her large abdominal panniculus is at risk for further worsening infection because her immune system is decreased due to her history of lymphoma and ITP. Therefore an abdominal panniculectomy was also performed from lateral abdominal wall to lateral abdominal wall and from the pubic area superiorly to the umbilicus. Tissue excised was sent to Pathology for analysis to rule out carcinoma. Tissue was also sent to Microbiology for culture. A positive culture will necessitate antibiotic therapy. The wound was irrigated with saline. Hemostasis was obtained with electrocautery. Dimensions of the abdominal wall wound after surgical preparation abdominal wall with excisional debridement skin and subcutaneous tissue and fascia necrotizing soft tissue hidradenitis infection and abdominal panniculectomy were 49 x 12 x 4 cm or 588 cm2. The wound was then dressed with Mepitel nonadherent dressing followed by Kerlix gauze and Betadine followed by dry Kerlix gauze and ABD compression dressing. An abdominal wall binder was also placed to keep the dressing in place. Patient tolerated the procedure well and was sent to PACU in satisfactory condition. Patient will be sent upstairs for continued postop care. She will continue IV antibiotics. The VAC will be placed tomorrow. Will also check a Prealbumin and encourage nutritional supplementation with protein to help the healing process. After discharge she will followup at the [facility] Center. If there is a plateau in the healing process, can proceed in a delayed fashion with further operative debridement and skin grafting or complex secondary wound closure. Grafts/Implants Used: None. - Complications None. - Admit VTE Documentation VTE Present on Admission: No VTE Mechan Device Prophylaxis: SCD's VTE Pharm Prophylaxis ordered?: Yes Code Visit Surgery Charges CPT - 23627 ICD-10 - L98.492, L02.211, M79.89, E65, L30.4, Z79.01 92775 E65, L98.492, L02.211, M79.89, L30.4, Z79.01
[2019-01-05] MEDS: Lactated Ringers 1,000 ML 60 ML IV (16:47)
--- NOTE | 2019-01-05 17:10 | PCM.CONS.GEN ---
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 (8) Generalized weakness Status: Chronic (9) History of pneumonia Status: Resolved (10) Osteoporosis Status: Chronic (11) Degenerative arthritis Status: Chronic (12) Pulmonary embolism Status: Resolved (13) Corneal dystrophy Status: Chronic (14) Chronic pain Status: Chronic Qualifiers: Chronic pain type: other chronic pain Qualified Code(s): G89.29 - Other chronic pain (15) History of blood clots Status: Chronic (16) Hypertension Status: Chronic Qualifiers: Hypertension type: essential hypertension Qualified Code(s): I10 - Essential (primary) hypertension (17) Hypothyroidism Status: Chronic Qualifiers: Hypothyroidism type: acquired Qualified Code(s): E03.9 - Hypothyroidism, unspecified (18) Sleep apnea Status: Chronic (19) History of non-Hodgkin's lymphoma Status: Chronic (20) Chronic ITP (idiopathic thrombocytopenia) Status: Chronic Reason for Consult Date of Consultation: 01/05/19 Reason for Consultation: Medical management. History of Present Illness: The patient is a 78 year old F who underwent excisional debridement of nonhealing infected multiple abdominal ulcerations and abdominal panniculectomy 01/05/[address] Tafoya. She denies significant pain. Denies fever, chills. She has a past medical history of non-Hodgkin's lymphoma, obstructive sleep apnea, hypertension, hypothyroidism, history of PE/DVT, chronic ITP. Patient reports she was hospitalized approximately 3 weeks ago for GI bleed. She was taken off of her Coumadin at that time. She reports she had been on Coumadin for about 25 years due to isolated PE. Past Medical History Past Medical History (Chronic Problems): Chronic Problems (Last Reviewed 12/02/18 @ 13:26 by Holly Burden) Necrotizing soft tissue infection (Chronic) Skin ulcer of abdominal wall with fat layer exposed (Chronic) Pannus, abdominal (Chronic) Intertriginous dermatitis associated with moisture (Chronic) Skin ulcer (Chronic) prison current use of anticoagulant (Chronic) Generalized weakness (Chronic) Osteoporosis (Chronic) Degenerative arthritis (Chronic) Corneal dystrophy (Chronic) Chronic pain (Chronic) History of blood clots (Chronic) Hypertension (Chronic) Hypothyroidism (Chronic) Sleep apnea (Chronic) History of non-Hodgkin's lymphoma (Chronic) Chronic ITP (idiopathic thrombocytopenia) (Chronic) Medical History: Medical History (Last Reviewed 12/02/18 @ 13:26 by Holly Burden) Osteoporosis (Chronic) M81.0 Degenerative arthritis (Chronic) M19.90 Corneal dystrophy (Chronic) H18.50 Chronic pain (Chronic) G89.29 History of blood clots (Chronic) Z86.718 Hypertension (Chronic) I10 Hypothyroidism (Chronic) E03.9 Sleep apnea (Chronic) G47.30 History of pneumonia (Resolved) Z87.01 Pulmonary embolism (Resolved) I26.99 Allergies gentamicin Adverse Reaction (Verified 12/16/18 22:27) Unknown Home Medications: Ambulatory Orders Medication Instructions Recorded Cetirizine HCl [Zyrtec] 10 mg PO DAILY 06/20/16 Folic Acid/Vit B Complex and C 400 mcg PO DAILY 06/20/16 [B-Complex with Vit C Caplet] Vitamin E (Dl,Tocopheryl Acet) 400 unit PO DAILY 06/20/16 [E-200] artificial tears (hypromellose) 1 drp OPHTHALMIC ONCE 05/24/17 0.3 % eye gel prednisolone acetate 1 % eye 1 drp OPHTHALMIC Q4H 05/24/17 drops,suspension solifenacin 10 mg tablet 10 mg PO QDAY 07/16/17 multivitamin with minerals tablet 1 tab PO BID tab 09/04/18 docusate sodium 100 mg capsule 100 mg PO DAILY PRN cap 09/24/18 Krill Oil 500 mg PO DAILY 12/16/18 Levothyroxine Sodium [Synthroid] 100 mcg PO QDAY 12/16/18 Acetaminophen 500 mg PO BID PRN PRN 01/02/19 Benzonatate [Tessalon Perle] 100 mg PO TID PRN PRN 01/02/19 Bisacodyl 10 mg [place] PRN PRN 10/11/19 Calcium Carbonate/Vitamin D3 1 ea PO DAILY 01/02/19 [Calcium 600 + Vit D Tablet] Ferrous Sulfate [Iron] 325 mg PO DAILY 01/02/19 Lisinopril 40 mg PO DAILY 01/02/19 Sennosides/Docusate Sodium 1 ea PO PRN PRN 01/02/19 [Senna-S Tablet] Sodium Chloride [Noé-128] 1 drp OP BID PRN PRN 01/02/19 traMADol [Ultram (G)] 50 mg PO Q6H PRN PRN 01/02/19 Surgical History: Surgical History (Last Reviewed 01/05/19 @ 17:22 by MAX Phillips) History of Achilles tendon repair Z98.890 History of cholecystectomy Z98.890, Z90.49 History of colonoscopy Z98.890 2006 history of heart cath Surgical History: cholecystectomy, - - Excisional debridement abdominal ulcerations and abdominal panniculectomy. 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 History Items: - - Denies known paternal medical history including cardiac history. Paternal Family History: Family History (Last Reviewed 01/05/19 @ 17:23 by XOCHITL PhillipsC) Father Heart disease Cancer Mother No problems noted. Review of Systems Constitutional: Denies: Chills, Fever, Weight Change HEENT: Denies: Head Aches, Sinus Congestion, Sinus Drainage Cardiovascular: Denies: Chest Pain, Palpitations Respiratory: Denies: Cough, Shortness of breath at rest, Sputum production Gastrointestinal: Denies: Abdominal Pain, Nausea, Vomiting Genitourinary: Denies: Dysuria Musculoskeletal: Denies: Joint Pain, Joint Tenderness Skin: Reports: - - Abdominal postop dressing intact. Neurological: Denies: Numbness, Tingling, Focal weakness Psychiatric: Denies: Anxiety, Depression, Homicidal Ideations, Suicidal Ideations Hematologic/ Lymphatic: Denies: Easy Bruising, Easy Bleeding - Physical Exam General: Alert, Oriented x3, Cooperative HEENT: Atraumatic, PERRLA, EOMI, Normocephalic Neck: Supple, No JVD, Negative Carotid Bruits Lungs: Clear to auscultation, Normal air movement Cardiovascular: Regular rate, Regular Rhythm, Normal S1, Normal S2 Abdomen: Bowel Sounds Present, Soft, Non Tender, Non-Distended Extremities: No clubbing, No cyanosis, No edema, Capillary Refill Less than 3 Seconds Skin: - - Abdominal postop dressing intact. Musculoskeletal: No Tenderness to Palpation of Joints or Extremities Neurological: Cranial nerves II-XII grossly intact, Neuro grossly intact Psych/Mental Status: Normal Affect, Appropriate Vital Signs Temp Pulse Resp BP Pulse Ox 97.8 F 87 18 118/62 97 01/05/19 15:36 01/05/19 15:36 01/05/19 15:36 01/05/19 15:36 01/05/19 15:36 Oxygen Flow Rate (L/min) 2 Oxygen Delivery Method Nasal Cannula Weight: 153 lb 12.8 oz Body Mass Index (BMI) 30.0 Intake and Output for Last 24 Hours 01/03/19 01/04/19 01/05/19 23:59 23:59 23:59 Intake Total 1083.67 / 1083.67 Balance 1083.67 / 1083.67 Assessment/Plan All Active Problems (Last Reviewed 12/02/18 @ 13:26 by Holly Burden) Cutaneous abscess of abdominal wall (Acute) History of pneumonia (Resolved) Pulmonary embolism (Resolved) 1. Nonhealing infected abdominal ulcerations, abdominal panniculus-status post abdominal wall excisional debridement of subcutaneous tissue and necrotizing soft tissue infection as well as abdominal panniculectomy 01/05/[address] Tafoya. Tissue abscess and cultures pending. On IV Unasyn and IV vancomycin. Wound RN. PRN pain regimen. PT/OT. 2. Recent GI bleed- taken off coumadin at that time. Patient reports upper gi bleed secondary to ulcer. Add PPI. Trend CBC. 3. Obstructive sleep apnea-continue home BIPAP regimen. 4. Hypertension-stable, continue home lisinopril regimen. 5. Hypothyroidism-continue home Synthroid regimen. 6. History of PE/DVT-no longer on oral anticoagulation as noted above. 7. History of Non-Hodgkin's lymphoma/Chronic ITP-NHL in remission, follows with oncology for chronic ITP. DVT prophylaxis-Lovenox sc This patient was seen by MAX Phillips under the supervision of Dr. Velasquez. <Anca Velasquez - Last Filed: 01/05/19 19:15> Reason for Consult History of Present Illness: The patient is a 78 year old F [] Past Medical History Medical History: Medical History (Last Reviewed 12/02/18 @ 13:26 by Holly Burden) Osteoporosis (Chronic) M81.0 Degenerative arthritis (Chronic) M19.90 Corneal dystrophy (Chronic) H18.50 Chronic pain (Chronic) G89.29 History of blood clots (Chronic) Z86.718 Hypertension (Chronic) I10 Hypothyroidism (Chronic) E03.9 Sleep apnea (Chronic) G47.30 History of pneumonia (Resolved) Z87.01 Pulmonary embolism (Resolved) I26.99 Allergies gentamicin Adverse Reaction (Verified 12/16/18 22:27) Unknown Surgical History: Surgical History (Last Reviewed 01/05/19 @ 17:22 by MAX Phillips) History of Achilles tendon repair Z98.890 History of cholecystectomy Z98.890, Z90.49 History of colonoscopy Z98.890 2007 history of heart cath - *Family History Maternal Family History: Family History (Last Reviewed 01/05/19 @ 17:23 by MAX Phillips) Father Heart disease Cancer Mother No problems noted. Paternal Family History: Family History (Last Reviewed 01/05/19 @ 17:23 by MAX Phillips) Father Heart disease Cancer Mother No problems noted. - Physical Exam Vital Signs Temp Pulse Resp BP Pulse Ox 98.4 F 88 18 146/74 H 100 01/05/19 17:36 01/05/19 17:36 01/05/19 17:36 01/05/19 17:36 01/05/19 17:36 Oxygen Flow Rate (L/min) 2 Oxygen Delivery Method Nasal Cannula Weight: 69.763 kg Body Mass Index (BMI) 30.0 Intake and Output for Last 24 Hours 01/03/19 01/04/19 01/05/19 23:59 23:59 23:59 Intake Total 1083.67 / 1083.67 Output Total 200 / 200 Balance 883.67 / 883.67 Assessment/Plan This patient was seen in conjunction with Clarissa Orozco NP. I have independently interviewed and examined the patient and reviewed pertinent historical, laboratory, and other data. Please refer to her note for patient's presentation, findings, and recommendations. 78-year-old female with past medical history of hypertension, hypothyroidism, history of PE/DVT, recent history of GI bleed secondary to peptic ulcer who comes in for elective excisional debridement and abdominal panniculectomy done on 01/05/19. We are consulted for postop medical management. Patient was seen and examined. Denied any new complaint. Pain is 5 out of 10. She denies any dizziness or palpitations or chest pain Vitals were reviewed -stable Physical Exam: Gen:Appears comfortable, not pale, not jaundiced, alert oriented x3 CVS:HS I +II, regular, no murmurs RESP: CTA GI: BS present and normal, nontender, no palpable organs, dressing intact, abdominal binder over her abdomen EXT:No edema ASSESSMENT: 1. Postop day #0 status post excisional debridement of skin, subcutaneous tissue and fascia for necrotizing soft tissue infected ulcers, abdominal panniculectomy 2. Recent GI bleed secondary to peptic ulcer 3. History of PE/DVT, off oral anticoagulation 4. AMADEO on BiPAP 5. Hypertension 6. Hypothyroidism 7. Non-Hodgkin's lymphoma 8. Chronic ITP Meds reviewed Plan: Follow-up on wound cultures Continue with IV vancomycin and Unasyn PPI BID obtain records from [facility] with regards to recent GI bleed Continue home wound care per Plastic surgery and wound RN Code Visit Inpatient E&M: [id number] Subs Hosp L2
--- NOTE | 2019-01-05 17:53 | PCM.RX.CS ---
Consult Pharmacy has been consulted to manage selected antiobiotic: Vancomycin Type of Consult: New start Suspected Infection: Skin/Soft tissue Weight used for dosin lb 10.595 oz Estimated Creatinine Clearance: 23.5 Goal Trough: 10-15 mcg/mL Pharmacy Plan for Drug Dosing: Pharmacy Service will continue to monitor and adjust dosing as required. Patient received 1000mg Vancomycin pre-op Calculated dose for trough of 10-15 is 500mg 24h Trough will be done 01/10 at 0830 Follow-Up Labs: Trough Vancomycin
[2019-01-05] MEDS: CLARIFY ORDER 1 EACH NOTE ×2 (17:59)
[2019-01-05] MEDS: Pantoprazole Sodium 40 MG Tablet PO (21:08)
[2019-01-05] MEDS: traMADol 50 MG Tablet PO (21:08)
--- NOTE | 2019-01-05 23:44 | CPS ---
Pt refuses at this time. pt will have home unit delivered in AM
[2019-01-06 02:00] VITALS: BP 122/62; PULSE 90; RESP 18; TEMP 37.1; O2SAT 98
[2019-01-06] MEDS: Levothyroxine 100 MCG Tablet PO (05:42)
[2019-01-06] MEDS: Enoxaparin 30 MG/0.3 ML Syringe SC (05:43)
[2019-01-06 07:33] LABS: Erythrocyte Sedimentation Rate 10 mm/hr (0-30)
[2019-01-06 08:01] LABS: ALB/GLOB Ratio 0.7 RATIO (0.9-2.4); AST(SGOT) 32 U/L (15-37); Alanine Aminotransfer ALT/SGPT 20 U/L (13-56); Albumin, Serum 2.1 g/dL (3.2-5.0); Alkaline Phosphatase 139 U/L (45-117); Anion Gap 5 (5-15); BUN 22 mg/dL (7-18); BUN/Creat Ratio 32.5 RATIO (10-20); Calcium,Total 8.3 mg/dL (8.5-10.1); Chloride 107 mmol/L (98-107); Creatinine, Serum 0.68 mg/dL (0.55-1.02); EST Glomerular Filtration Rate 89 mL/min (>60); Est Glom Filt Rate - Afr Amer 108 mL/min (>60); Estimated Creatinine Clearance 32.23 ml/min; Glucose 94 mg/dL (74-106); Potassium 4.4 mmol/L (3.5-5.1); Prealbumin 15.2 mg/dL (20.0-40.0); Protein, Total 5.1 g/dL (6.4-8.2); Sodium Level 142 mmol/L (136-145)
[2019-01-06] MEDS: HYDROmorphone 0.5 MG/0.5 ML SYRINGE IV (08:14)
[2019-01-06] MEDS: Ferrous Sulfate 325 MG Tablet PO (08:15)
[2019-01-06] MEDS: Multivitamins,Ther W-Minerals Tablet 1 TABLET PO (08:16)
[2019-01-06] MEDS: Pantoprazole Sodium 40 MG Tablet PO ×2 (08:19→21:53)
[2019-01-06] MEDS: Calcium Carb/Vitamin D 1 TABLET Tablet PO (08:19)
[2019-01-06] MEDS: Lisinopril 40 MG Tablet PO (08:19)
[2019-01-06] MEDS: Vitamin E 400 UNITS Capsule PO (08:19)
[2019-01-06] MEDS: Vitamin B Comp W-C Capsule 1 CAP PO (08:20)
[2019-01-06] MEDS: Loratadine 10 MG Tablet PO (08:20)
[2019-01-06] MEDS: prednisoLONE eye drops (5 mL) 1 DROP OPTH.BTL 1 DRP RIGHT EYE (08:21)
[2019-01-06] MEDS: Tolterodine Tartrate 4 MG CAP.SA PO (08:24)
[2019-01-06 08:30] VITALS: BP 123/63; PULSE 99; RESP 18; TEMP 37.1; O2SAT 94
[2019-01-06] MEDS: Vancomycin IV 500 MG/100 ML BAG 100 MG IV (08:32)
[2019-01-06] MEDS: Lactated Ringers 1,000 ML 60 ML IV (10:17)
[2019-01-06] MEDS: traMADol 50 MG Tablet PO ×2 (10:20→20:27)
--- NOTE | 2019-01-06 10:33 | CASEMGMT ---
Social Work Note Pt is listed as being from [facility]. JANEE met with pt and introduced self and role at [facility]. Pt is alert and orientated x3. Pt confirms that she is from [facility] and plans to return. Pt states her family will transport her back to [facility]. JANEE placed a call to Liya at [facility]. Liya states pt is from skilled at [facility] and can return whenever medically cleared. JANEE informed Liya that pt is going to come back with a wound vac. Liya states understanding, states again pt can return whenever medically cleared. JANEE faxed updated clinicals to [facility]. Plan: Return to [facility] skilled once medically cleared Kalina Barr [employer]ILLOW CLEAN[employer], [employer]NOCKOUT MAN
--- NOTE | 2019-01-06 10:43 | NURSING ---
wound photo: lower abdomen
--- NOTE | 2019-01-06 12:02 | PN_ITS ---
<Clarissa Orozco - Last Filed: 01/06/19 12:14> Subjective: Patient seen and examined. Wound VAC placed this morning. Patient reports pain is well controlled. - Physical Exam General: Alert, Oriented x3, Cooperative HEENT: Atraumatic, PERRLA, EOMI, Normocephalic Neck: Supple, No JVD, Negative Carotid Bruits Lungs: Clear to auscultation, Normal air movement Cardiovascular: Regular rate, Regular Rhythm, Normal S1, Normal S2, No murmurs Abdomen: Bowel Sounds Present, Soft, Non Tender, Non-Distended Extremities: No clubbing, No cyanosis, No edema, Capillary Refill Less than 3 Seconds Skin: - - Abdominal dressings/binder intact. Wound vac in place. Musculoskeletal: No Tenderness to Palpation of Joints or Extremities Neurological: Cranial nerves II-XII grossly intact, Neuro grossly intact Psych/Mental Status: Normal Affect, Appropriate Vital Signs Temp Pulse Resp BP Pulse Ox 98.7 F 99 18 123/63 H 94 01/06/19 08:30 01/06/19 08:30 01/06/19 08:30 01/06/19 08:30 01/06/19 08:30 Oxygen Flow Rate (L/min) 2 Oxygen Delivery Method Room Air Weight: 153 lb 12.817 oz Body Mass Index (BMI) 30.0 Intake and Output for Last 24 Hours 01/04/19 01/05/19 01/06/19 23:59 23:59 23:59 Intake Total 1083.67 / 1203.67 1432 / 1432 Output Total 200 / 425 425 / 425 Balance 883.67 / 778.67 1007 / 1007 Microbiology Past 72 Hours 01/05/19 14:33 Wound Culture - Preliminary Biopsy - Tissue Gram negative merced Laboratory Tests Past 24 Hrs 01/06/19 01/06/19 06:45 06:45 WBC Pending RBC Pending Hgb Pending Hct Pending MCV Pending MCH Pending MCHC Pending RDW Std Deviation Pending RDW Coeff of Migdalia Pending Plt Count Pending ESR 10 Sodium 142 Potassium 4.4 Chloride 107 Carbon Dioxide 30.0 Anion Gap 5 BUN 22 H Creatinine 0.68 Estim Creat Clear Calc 32.23 Est GFR (MDRD) Af Amer 108 Est GFR (MDRD) Non-Af 89 BUN/Creatinine Ratio 32.5 H Glucose 94 Calcium 8.3 L Total Bilirubin 0.50 AST 32 ALT 20 Alkaline Phosphatase 139 H C-React Prot Ext Range 19.60 H Total Protein 5.1 L Albumin 2.1 L Globulin 3.0 Albumin/Globulin Ratio 0.7 L Prealbumin 15.2 L Medical Necessity - Tobacco Use Smoking Status: Never smoker Assessment/Plan All Active Problems (Last Reviewed 12/02/18 @ 13:26 by Holly Burden) Cutaneous abscess of abdominal wall (Acute) 1. Nonhealing infected abdominal ulcerations, abdominal panniculus-status post abdominal wall excisional debridement of subcutaneous tissue and necrotizing soft tissue infection as well as abdominal panniculectomy 01/05/[address] Amarjit najera. Tissue abscess and cultures pending. On IV Unasyn and IV vancomycin. Wound RN. PRN pain regimen. PT/OT. 2. Recent GI bleed 2/2 peptic ulcer, complicated by severely elevated INR- taken off coumadin at that time. Patient reports upper gi bleed secondary to ulcer. Add PPI BID. Trend CBC. 3. Obstructive sleep apnea-continue home BIPAP regimen. 4. Hypertension-stable, continue home lisinopril regimen. 5. Hypothyroidism-continue home Synthroid regimen. 6. History of PE/DVT-no longer on oral anticoagulation as noted above. 7. History of Non-Hodgkin's lymphoma/Chronic ITP-NHL in remission, follows with oncology for chronic ITP. DVT prophylaxis-Lovenox sc Patient is stable from medical standpoint. Hospitalist service will sign off at this time. Recommend continuing Protonix 40 mg twice daily at discharge given recent GI bleed/peptic ulcer. Please notify if other concerns arise. This patient was seen by MAX Phillips under the supervision of Dr. Varghese. <Jonn Varghese - Last Filed: 01/06/19 13:24> - Physical Exam Vital Signs Temp Pulse Resp BP Pulse Ox 98.7 F 99 18 123/63 H 94 01/06/19 08:30 01/06/19 08:30 01/06/19 08:30 01/06/19 08:30 01/06/19 08:30 Oxygen Flow Rate (L/min) 2 Oxygen Delivery Method Room Air Weight: 153 lb 12.817 oz Body Mass Index (BMI) 30.0 Intake and Output for Last 24 Hours 01/04/19 01/05/19 01/06/19 23:59 23:59 23:59 Intake Total 1083.67 / 1203.67 1432 / 1432 Output Total 200 / 425 425 / 425 Balance 883.67 / 778.67 1007 / 1007 Microbiology Past 72 Hours 01/05/19 14:33 Gram Stain - Final Biopsy - Tissue Wound Culture - Preliminary Gram negative merced Laboratory Tests Past 24 Hrs 01/06/19 01/06/19 06:45 06:45 WBC Pending RBC Pending Hgb Pending Hct Pending MCV Pending MCH Pending MCHC Pending RDW Std Deviation Pending RDW Coeff of Migdalia Pending Plt Count Pending ESR 10 Sodium 142 Potassium 4.4 Chloride 107 Carbon Dioxide 30.0 Anion Gap 5 BUN 22 H Creatinine 0.68 Estim Creat Clear Calc 32.23 Est GFR (MDRD) Af Amer 108 Est GFR (MDRD) Non-Af 89 BUN/Creatinine Ratio 32.5 H Glucose 94 Calcium 8.3 L Total Bilirubin 0.50 AST 32 ALT 20 Alkaline Phosphatase 139 H C-React Prot Ext Range 19.60 H Total Protein 5.1 L Albumin 2.1 L Globulin 3.0 Albumin/Globulin Ratio 0.7 L Prealbumin 15.2 L Assessment/Plan Hospitalist note: I am seeing this patient in conjunction with Clarissa Orozco. I independently seen and examined the patient. Progress note above and laboratory data and I concur with the above treatment plan. Patient seen and examined. She complained of itching that has been going on for several days even before surgery. Abdominal pain is well controlled at this time. Wound VAC placed this morning. Her vital signs are stable. - Physical Exam General: Alert, Oriented x3, Cooperative, No apparent distress. HEENT: Atraumatic, PERRLA, EOMI. Neck: Supple, No JVD, Negative Carotid Bruits, Trachea Midline, Thyroid Normal. Lungs: Clear to auscultation, Normal air movement, No rhonchi, No wheeze, No rales. Cardiovascular: Regular rate, Regular Rhythm, Normal S1, Normal S2, PMI Normal. Abdomen: Bowel Sounds Present, Soft, Non Tender, Non-Distended, No Hepato- splenomegaly. Extremities: No clubbing, No cyanosis, No edema Skin: No rashes, No breakdown Neurological: Cranial nerves are intact, neuro grossly intact Vital Signs are stable. Assessment and plan: #1 nonhealing infected multiple abdominal ulcerations/abscess/panniculitis/intertrigo: Status post excisional debridement of the skin, subcutaneous tissue and fascia as well as abdominal panniculectomy, postoperative day 1. She is on IV vancomycin and Unasyn. Wound culture reveale d gram-negative rods, final is pending. Vital signs are stable, afebrile. BMP was unremarkable. CBC is pending. Dr. Tafoya is managing. #2 recent history of GI bleed: Secondary to peptic ulcer disease. She was taken off Coumadin. CBC is pending. She is on Protonix. #3 hypertension: Stable, continue current medications. #4 other chronic medical problems: Stable, continue current medications as above. Patient is medically stable, will sign off, call if needed. This note was generated with [employer] dictation software. It may contain incorrect words, spelling, and punctuation that were not noted in checking the note before signing. Code Visit Inpatient E&M: 10287 Subs Hosp L2
--- NOTE | 2019-01-06 12:27 | PCM.PN.SRG ---
- Physical Exam General: Alert, Oriented x3, Cooperative HEENT: Atraumatic Oral: Moist Mucosa Lungs: Normal air movement Abdomen: Soft, Tender Extremities: No edema, Capillary Refill Less than 3 Seconds Skin: Ulcer/ Wound - Lower abdominal wall wound. Wound VAC being placed. Musculoskeletal: No Tenderness to Palpation of Joints or Extremities Lymphatic: No Cervical, Supraclavicular, or Inguinal Adenopathy Neurological: Neuro grossly intact Psych/Mental Status: Normal Affect, Appropriate Vital Signs Temp Pulse Resp BP Pulse Ox 98.7 F 99 18 123/63 H 94 01/06/19 08:30 01/06/19 08:30 01/06/19 08:30 01/06/19 08:30 01/06/19 08:30 Oxygen Flow Rate (L/min) 2 Oxygen Delivery Method Room Air Weight: 153 lb 12.817 oz Body Mass Index (BMI) 30.0 Intake and Output for Last 24 Hours 01/04/19 01/05/19 01/06/19 23:59 23:59 23:59 Intake Total 1083.67 / 1203.67 1432 / 1432 Output Total 200 / 425 425 / 425 Balance 883.67 / 778.67 1007 / 1007 Microbiology Past 72 Hours 01/05/19 14:33 Gram Stain - Final Biopsy - Tissue Wound Culture - Preliminary Gram negative merced Laboratory Tests Past 24 Hrs 01/06/19 01/06/19 06:45 06:45 WBC Pending RBC Pending Hgb Pending Hct Pending MCV Pending MCH Pending MCHC Pending RDW Std Deviation Pending RDW Coeff of Migdalia Pending Plt Count Pending ESR 10 Sodium 142 Potassium 4.4 Chloride 107 Carbon Dioxide 30.0 Anion Gap 5 BUN 22 H Creatinine 0.68 Estim Creat Clear Calc 32.23 Est GFR (MDRD) Af Amer 108 Est GFR (MDRD) Non-Af 89 BUN/Creatinine Ratio 32.5 H Glucose 94 Calcium 8.3 L Total Bilirubin 0.50 AST 32 ALT 20 Alkaline Phosphatase 139 H C-React Prot Ext Range 19.60 H Total Protein 5.1 L Albumin 2.1 L Globulin 3.0 Albumin/Globulin Ratio 0.7 L Prealbumin 15.2 L Medical Necessity - Tobacco Use Smoking Status: Never smoker Assessment/Plan All Active Problems (Last Reviewed 12/02/18 @ 13:26 by Holly Burden) Cutaneous abscess of abdominal wall (Acute) History of pneumonia (Resolved) Pulmonary embolism (Resolved) Postop #1 Patient is doing well. She states her pain has been well controlled with the pain meds. She was up walking this morning before the wound VAC placement. Wound VAC placed this morning and the patient is tolerating it well. Vital signs are stable. Labs are still pending.
[2019-01-06 13:45] LABS: International Normalized Ratio 1.1; Prothrombin Time (Protime)PT. 14.4 SECONDS (11.7-14.9)
[2019-01-06 14:13] LABS: Hematocrit 27.1 % (37-47); Hemoglobin 8.4 g/dL (12.0-15.0); Mean Corpuscular Hgb 31.3 pg (27.0-32.0); Mean Corpuscular Volume 101.1 fL (81-99); Mean Platelet Vol. 10.1 fl (6.2-12.0); Platelet Count 185 K/mm3 (150-450); RBC Distribution Width CV 15.5 % (11.6-14.6); RBC Distribution Width SD 56.7 fl (35.1-43.9); Red Blood Count 2.68 M/mm3 (4.2-5.4); White Blood Count 6.8 K/mm3 (4.4-11.0)
[2019-01-06 14:30] VITALS: BP 150/77; PULSE 95; RESP 18; TEMP 36.7; O2SAT 98
[2019-01-06] MEDS: DiphenhydrAMINE 50 MG/ML Syringe 25 MG IV (16:32)
[2019-01-06] MEDS: oxyCODONE 5 MG Tablet 10 MG PO ×2 (16:32→23:49)
[2019-01-06 20:30] VITALS: BP 135/64; PULSE 89; RESP 18; TEMP 37.1; O2SAT 94
[2019-01-07 02:15] VITALS: BP 125/67; PULSE 69; RESP 18; TEMP 36.8; O2SAT 95
[2019-01-07] MEDS: Lactated Ringers 1,000 ML 60 ML IV (05:39)
[2019-01-07] MEDS: oxyCODONE 5 MG Tablet 10 MG PO ×2 (05:39→17:18)
[2019-01-07] MEDS: Levothyroxine 100 MCG Tablet PO (05:40)
[2019-01-07] MEDS: Enoxaparin 30 MG/0.3 ML Syringe SC (05:40)
[2019-01-07 06:31] LABS: Anion Gap 4 (5-15); BUN 29 mg/dL (7-18); BUN/Creat Ratio 41.7 RATIO (10-20); Chloride 103 mmol/L (98-107); EST Glomerular Filtration Rate 86 mL/min (>60); Est Glom Filt Rate - Afr Amer 104 mL/min (>60); Estimated Creatinine Clearance 32.23 ml/min; Glucose 96 mg/dL (74-106); Potassium 4.4 mmol/L (3.5-5.1); Sodium Level 140 mmol/L (136-145)
[2019-01-07 07:02] LABS: Hematocrit 28.7 % (37-47); Mean Corp Hgb Conc 31.4 g/dL (32-36); Mean Corpuscular Hgb 31.5 pg (27.0-32.0); Mean Corpuscular Volume 100.3 fL (81-99); Mean Platelet Vol. 9.9 fl (6.2-12.0); Platelet Count 197 K/mm3 (150-450); RBC Distribution Width CV 15.1 % (11.6-14.6); RBC Distribution Width SD 55.6 fl (35.1-43.9); Red Blood Count 2.86 M/mm3 (4.2-5.4); White Blood Count 8.2 K/mm3 (4.4-11.0)
[2019-01-07 07:39] VITALS: O2SAT 95
[2019-01-07 09:00] VITALS: BP 149/78; PULSE 99; RESP 18; TEMP 36.7; O2SAT 94
[2019-01-07] MEDS: Ferrous Sulfate 325 MG Tablet PO (09:06)
[2019-01-07] MEDS: Multivitamins,Ther W-Minerals Tablet 1 TABLET PO (09:06)
[2019-01-07] MEDS: Vitamin B Comp W-C Capsule 1 CAP PO (09:07)
[2019-01-07] MEDS: Tolterodine Tartrate 4 MG CAP.SA PO (09:07)
[2019-01-07] MEDS: Loratadine 10 MG Tablet PO (09:07)
[2019-01-07] MEDS: Calcium Carb/Vitamin D 1 TABLET Tablet PO (09:08)
[2019-01-07] MEDS: Pantoprazole Sodium 40 MG Tablet PO (09:08)
[2019-01-07] MEDS: Lisinopril 40 MG Tablet PO (09:09)
[2019-01-07] MEDS: Vitamin E 400 UNITS Capsule PO (09:09)
[2019-01-07] MEDS: prednisoLONE eye drops (5 mL) 1 DROP OPTH.BTL 1 DRP RIGHT EYE (09:10)
[2019-01-07] MEDS: Vancomycin IV 500 MG/100 ML BAG 100 MG IV (09:15)
--- NOTE | 2019-01-07 10:05 | PCM.RX.CS ---
Consult Pharmacy has been consulted to manage selected antiobiotic: Vancomycin Type of Consult: Follow-up Suspected Infection: Skin/Soft tissue Prior Doses of Antibiotics Received/Current Regimen: Currently on 500mg IV q24h. Labs: Sodium 140 mmol/L (136-145) 01/07/19 05:50 Potassium 4.4 mmol/L (3.5-5.1) 01/07/19 05:50 Chloride 103 mmol/L (98-107) 01/07/19 05:50 Carbon Dioxide 33.0 mmol/L (21.0-32.0) H 01/07/19 05:50 Anion Gap 4 (5-15) L 01/07/19 05:50 BUN 29 mg/dL (7-18) H 01/07/19 05:50 Creatinine 0.70 mg/dL (0.55-1.02) 01/07/19 05:50 Est GFR (MDRD) Af Amer 104 mL/min (>60) 01/07/19 05:50 Est GFR (MDRD) Non-Af 86 mL/min (>60) 01/07/19 05:50 BUN/Creatinine Ratio 41.7 RATIO (10-20) H 01/07/19 05:50 Glucose 96 mg/dL (74-106) 01/07/19 05:50 Vancomycin Trough 7.0 ug/mL (5.0-15.0) 01/07/19 08:06 Microbiology: Microbiology 01/05/19 14:33 Biopsy - Tissue Gram Stain - Final 01/05/19 14:33 Biopsy - Tissue Wound Culture - Final Proteus mirabilis 01/05/19 14:33 Biopsy - Tissue Anaerobic Culture - Preliminary Checking for anaerobes, further studies to follow. Weight used for dosin.8 kg Estimated Creatinine Clearance: 32 ml/min Goal Trough: 10-15 mcg/mL Pharmacy Plan for Drug Dosing: Trough drawn before this morning's dose was 7.0 mg/L. This is below goal range of 10-15. Will increase next dose to 750mg IV q24h. Since the patient has already received today's dose of 500mg and since the trough was low, we will start the 750mg dose tomorrow morning a few hours earlier than when the next dose would have been due. Will obtain another trough before the 3rd new dose. Pharmacy Service will continue to monitor and adjust dosing as required. Follow-Up Labs: Trough Vancomycin Labs to be done on [date and time ordered]: 01/10/19 05:30
--- NOTE | 2019-01-07 12:03 | NURSING ---
Pt should be discharged back to [facility] today. will switch patient over to smaller VAC once discharge order is in. pt states she has been having minimal pain today. dressing is intact.
[2019-01-07] MEDS: traMADol 50 MG Tablet PO (13:21)
[2019-01-07 15:00] VITALS: BP 135/74; PULSE 98; RESP 18; TEMP 36.7; O2SAT 95
--- NOTE | 2019-01-07 15:21 | CASEMGMT ---
Social Work Note Physician states pt should discharge back to [facility] today. JANEE placed a call to Liya at [facility] and updated her that pt will be discharged back to [facility] today. JANEE informed Liya that this worker is waiting for discharge paperwork but will fax discharge paperwork once available. JANEE placed green sheet and transportation form on pt's chart. Plan: Discharge back to [facility] today Kalina Barr [employer], [employer]
--- NOTE | 2019-01-07 17:33 | PCM.PN.SRG ---
Subjective: Postop surgery #2 Patient resting comfortably. Tolerating the VAC. Ambulating steady with assist. - Physical Exam General: Alert, Oriented x3 HEENT: PERRLA, EOMI Oral: Moist Mucosa Neck: Supple Abdomen: Soft, Non-Distended Skin: Ulcer/ Wound - abdominal wall wound is stable. VAC in place. Minimal drainage in the canister. Neurological: Cranial nerves II-XII grossly intact Psych/Mental Status: Normal Affect, Appropriate Vital Signs Temp Pulse Resp BP Pulse Ox 98.1 F 98 18 135/74 H 95 01/07/19 15:00 01/07/19 15:00 01/07/19 15:00 01/07/19 15:00 01/07/19 15:00 Oxygen Flow Rate (L/min) 2 Oxygen Delivery Method Room Air Weight: 153 lb 12.817 oz Body Mass Index (BMI) 30.0 Intake and Output for Last 24 Hours 01/05/19 01/06/19 01/07/19 23:59 23:59 23:59 Intake Total 1083.67 / 1203.67 1744 / 1744 1324 / 1324 Output Total 200 / 425 725 / 725 500 / 500 Balance 883.67 / 778.67 1019 / 1019 824 / 824 Microbiology Past 72 Hours 01/05/19 14:33 Gram Stain - Final Biopsy - Tissue Wound Culture - Final Proteus mirabilis Anaerobic Culture - Preliminary Checking for anaerobes, further studies to follow. Laboratory Tests Past 24 Hrs 01/07/19 01/07/19 01/07/19 05:50 05:50 08:06 WBC 8.2 RBC 2.86 L Hgb 9.0 L Hct 28.7 L MCV 100.3 H MCH 31.5 MCHC 31.4 L RDW Std Deviation 55.6 H RDW Coeff of Migdalia 15.1 H Plt Count 197 MPV 9.9 Sodium 140 Potassium 4.4 Chloride 103 Carbon Dioxide 33.0 H Anion Gap 4 L BUN 29 H Creatinine 0.70 Estim Creat Clear Calc 32.23 Est GFR (MDRD) Af Amer 104 Est GFR (MDRD) Non-Af 86 BUN/Creatinine Ratio 41.7 H Glucose 96 Calcium 9.0 Vancomycin Trough 7.0 Medical Necessity - Tobacco Use Smoking Status: Never smoker Assessment/Plan All Active Problems (Last Updated 01/06/19 @ 13:19 by Jonn Varghese MD) Cutaneous abscess of abdominal wall (Acute) 1. Nonhealing infected multiple abdominal ulceration abscesses. 2. 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 3. Abdominal panniculus. 4. Abdominal wall skin crease intertrigo. 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 6. s/p surgical preparation lower anterior abdominal wall with excisional debridement skin, subcutaneous tissue, and fascia for necrotizing soft tissue infection abscess ulcers (588 cm2) and abdominal panniculectomy. VAC in place. Minimal drainage in the canister. To be changed three times per week at 150 mmHg continuous suction. Operative culture shows Proteus mirabilis. Perioperatively was on Vancomycin and Unasyn. Will change to Levaquin when discharged to [facility]CF. Prealbumin was 15.2. Encourage nutritional supplementation with protein to help the healing process. Ambulating ok with assist. Discharge to ECF today. Wrote script for Levaquin. When sensitivities are available, antibiotic modifcation may be necessary. [facility] 2 weeks.
--- NOTE | 2019-01-07 17:35 | PCM.TXEXTCAR ---
- Diet 01/05/19 15:33 Diet: Regular Diet - Routine Orders/Code Status Routine Lab Work: CBC - qweekly, BMP - qweekly Code Status: Full Code - Wound(s) abdominal Wound Type: Open Surgical Wound Dressing Change: wound vac at 150 mmHg continuous suction R FOOT Wound Type: SCAB LOWER BACK Wound Type: SCABS lower abdomen Wound Type: Open Surgical Wound Dressing Change: applied KCI wound VAC - Suggestions for Active Care Hours to sit in a chair: 3 Times a day to sit in chair: 4 - Therapies Weight Bearing: Weight bearing as tolerated Physical Therapy: Eval and Treat - ambulation and strengthening. - Allergies/Procedures Done in Hospital Allergies/Adverse Reactions: Allergies gentamicin Adverse Reaction (Verified 12/16/18 22:27) Unknown Procedures: Wound Vac placement, - - Surgery 01/05/19 - 1. Surgical preparation lower anterior abdominal wall with excisional debridement skin, subcutaneous tissue, and fascia for necrotizing soft tissue infection abscess ulcers (588 cm2). 2. Abdominal panniculectomy. - Type of Care/Length of Stay Estimated LOS: More Than 30 Days Type of Care Needed: Skilled Rehab Potential: Fair - Additional Orders/Day of Discharge H&P will serve as current which was dated: 01/04/19 Day of Discharge: 01/07/19 - Dietary and Speech Recommendations Dietitian Recommendations/Changes: Continue regular diet and Peter BID. Will add Ensure Enlive w/ medpass and ONS w/ meals for additional calories/protein if consumed. - Follow Up Care Primary Care Physician: Roosevelt Mahan DO [Primary Care Provider] - Please Follow Up With: Félix Tafoya MD When: saturday01/19/19 at wound center. Call [phone] for a time.
== END 2019-01-07 18:30 | disposition skilled nursing facility (03) | DRG 571 ==
LOC: ACINP 08:14 → MS3 01-06 06:19
PROVIDERS: Hospitalist; Admitting Provider Surgery; Family Provider Family Medicine; PCP Family Medicine; Referring Provider Surgery; Visit Provider Surgery
PROC: 0JB80ZZ Excision of Abdomen Subcutaneous Tissue and Fascia, Open Approach (ICD-10-PCS; principal; 2019-01-05 10:00)
DX: L98.499 Non-pressure chronic ulcer of skin of other sites with unspecified severity (principal); C85.90 Non-Hodgkin lymphoma, unspecified, unspecified site; L02.211 Cutaneous abscess of abdominal wall; D69.3 Immune thrombocytopenic purpura; L30.4 Erythema intertrigo; E65 Localized adiposity; E03.9 Hypothyroidism, unspecified; G47.33 Obstructive sleep apnea (adult) (pediatric); I10 Essential (primary) hypertension; K27.9 Peptic ulcer, site unspecified, unspecified as acute or chronic, without hemorrhage or perforation; Z86.711 Personal history of pulmonary embolism
CPT/HCPCS: 36415; 80048; 80053; 80202; 84134; 85027; 85610; 85652; 86140; 87070; 87075; 87077; 87102; 87176; 87186; 87205; 87206; 88304; 88305; 88311; 94640; J7120; J0295; J2405

== ENCOUNTER 2019-01-12 17:50 | Emergency (ER) | payer MEDICARE, OTHER, SELFPAY ==
[2019-01-12 17:52] VITALS: BP 162/92; PULSE 112; RESP 25; TEMP 39.3; O2SAT 92; BMI 27.5
--- NOTE | 2019-01-12 18:20 | ED.RN ---
PT ARRIVES TO ED VIA [facility]. PT FROM [facility]. ABDOMINAL WOUND WITH WOUND VAC IN PLACE. PER [facility], PT HAD WOUND VAC CHANGED TODAY. PT BROTHER AT BEDSIDE.
[2019-01-12] MEDS: Acetaminophen 500 MG Tablet 1000 MG PO (18:24)
[2019-01-12] MEDS: 0.9% Normal Saline 1,000 ML 1000 ML IV (18:24)
--- NOTE | 2019-01-12 18:25 | RAD_ITS ---
STUDY: X-RAY CHEST REASON FOR EXAM: Female, 78 years old. Abdominal wound and fever. TECHNIQUE: Portable chest. COMPARISON: 02/17/2018. FINDINGS: Low lung volumes. The lungs are clear. No vascular congestion or acute pulmonary inflammatory change. There is no demonstrated pleural abnormality. Normal size heart. Normal mediastinum and radames. Normal visualized pulmonary arteries. Normal visualized aortic arch and descending thoracic aorta. Soft tissues and bony structures are unremarkable. RAD/Chest 1 View (Portable) IMPRESSION: No acute findings. Electronically Signed: Myrna Lucero MD at 18:58 EDT Tel , Service support ,
[2019-01-12 18:34] LABS: Absolute Lymphocyte Count 1.08 X10^3/uL (0.83-4.51); Basophil# 0.04 X10^3/uL; Basophil% 0.4 % (0-1); Eosinophil# 0.25 X10^3/uL; Eosinophils% 2.3 % (0-5); Hematocrit 33.9 % (37-47); Hemoglobin 10.7 g/dL (12.0-15.0); Lymphocyte # 1.08 X10^3/ul (4.0); Mean Corp Hgb Conc 31.6 g/dL (32-36); Mean Corpuscular Hgb 31.5 pg (27.0-32.0); Mean Corpuscular Volume 99.7 fL (81-99); Mean Platelet Vol. 10.3 fl (6.2-12.0); Monocyte# 1.35 X10^3/uL; Monocyte% 12.5 % (0-10); NRBC Flagged by Analyzer 0 % (0-5); Neutrophil # 7.98 X10^3/uL (2.7-7.7); Neutrophil % 74.2 % (47-70); Platelet Count 328 K/mm3 (150-450); RBC Distribution Width CV 14.7 % (11.6-14.6); White Blood Count 10.8 K/mm3 (4.4-11.0)
[2019-01-12 18:38] LABS: International Normalized Ratio 1.1; Prothrombin Time (Protime)PT. 13.6 SECONDS (11.7-14.9)
[2019-01-12 18:45] LABS: ALB/GLOB Ratio 0.6 RATIO (0.9-2.4); AST(SGOT) 32 U/L (15-37); Alanine Aminotransfer ALT/SGPT 25 U/L (13-56); Albumin, Serum 2.5 g/dL (3.2-5.0); Alkaline Phosphatase 173 U/L (45-117); Anion Gap 4 (5-15); BUN 39 mg/dL (7-18); BUN/Creat Ratio 47.3 RATIO (10-20); Calcium,Total 9.3 mg/dL (8.5-10.1); Chloride 103 mmol/L (98-107); Creatinine, Serum 0.82 mg/dL (0.55-1.02); EST Glomerular Filtration Rate 71 mL/min (>60); Est Glom Filt Rate - Afr Amer 86 mL/min (>60); Estimated Creatinine Clearance 47.25 ml/min; Globulin 4.2 g/dL (2.2-4.2); Glucose 110 mg/dL (74-106); Potassium 4.6 mmol/L (3.5-5.1); Protein, Total 6.7 g/dL (6.4-8.2); Sodium Level 137 mmol/L (136-145)
[2019-01-12 18:47] LABS: Lactic Acid 1.2 mmol/L (0.4-2.0)
--- NOTE | 2019-01-12 18:49 | ED.RN ---
PT ARRIVED TO ED WITH SOILED DEPENDS AND ASHLIE PAD. ASHLIE PAD SAURATED WITH URINE. REQUIRING FULL BED CHANGE. PT CLEANED WITH BATH WIPES, NEW SHEETS AND DEPEND PLACED ON PT. PT MOVED UP IN BED AND PLACED IN POSITION OF COMFORT. PT TOLERATED WELL. PT WITH LOWER ABDOMINAL WOUND SPANNING ENTIRE ABDOMEN, WOUND VAC IN PLACE AND PLUGGED IN OPERATION ACCORDING TO ECF SETTINGS.
[2019-01-12 18:51] LABS: Bacteria 0 SEEN /hpf (None Seen); Mucous, Urine 0 SEEN /hpf (<or=2+); Red Blood Cells-Urine 0 SEEN /hpf (0-5); Squamous Epithelial Cells - UA 0 SEEN /hpf (5-10); White Blood Cells 0 SEEN /hpf (0-5)
[2019-01-12 18:55] LABS: Color, Urine Yellow (Yellow); Glucose, Dipstick Normal (Normal); Ketone-Dipstick Negative (Negative); Leukocyte Esterase-Dipstick Negative /ul (Negative); Nitrite-Dipstick Negative (Negative); Occult Blood-Urine Negative /ul (Negative); Protein-Dipstick Negative (Negative); Urine Bilirubin Dipstick Negative (Negative); Urine Clarity Clear (Clear); Urine Urobilinogen Normal (Normal)
[2019-01-12 19:46] VITALS: BP 129/77; PULSE 108; RESP 20; TEMP 37.6; O2SAT 99
--- NOTE | 2019-01-12 19:51 | ED.DCSUM_ITS ---
History of Present Illness Chief Complaint: Wound Informant: Patient Onset: Today Context: Sudden Onset Timing: Continuous Current Severity: Mild Maximum Severity: Mild Narrative: Patient presents to the emergency department with fever. Patient has a complex recent medical history. She had large ulceration of her anterior abdominal wall. She underwent surgical debridement with wound VAC placement with Dr. Tafoya. She has been on oral antibiotics. She was at the wound center today. She had her wound VAC dressing changed. She was sent back to the nursing facil [facility] there she spiked a fever. She denies any symptoms. She denies any cough or shortness of breath. She denies any nausea or vomiting. She states that she does have pain at the surgical site, but it is unchanged. She had no dysuria. Her antibiotics were broadened to doxycycline today. Prior similar symptoms: No Recent Illness/Hospitalization: Yes Past Medical History - Allergies and Home Meds Allergies/Adverse Reactions: Allergies gentamicin Adverse Reaction (Verified 01/12/19 17:51) Unknown Primary Care Physician: Roosevelt Mahan DO [Primary Care Provider] - Prior records reviewed: Yes Surgical History: cholecystectomy, - - Excisional debridement abdominal ulcerations and abdominal panniculectomy. Smoking Status: Never smoker - Family History Maternal Family History: Family History (Last Reviewed 01/05/19 @ 17:23 by MAX Phillips) Father Heart disease Cancer Mother No problems noted. Family History: Reports: - - Denies known paternal medical history including cardiac history. Review of Systems General: Reports: Fever Eyes: Denies: Visual changes - bilaterally, Diplopia ENT: Denies: Rhinorrhea, Sore throat Cardiovascular: Denies: Chest pain, Palpitations Respiratory: Denies: Dyspnea, Cough, Dyspnea on exertion Gastrointestinal: Denies: Abdominal pain, Nausea, Vomiting, Diarrhea, Melena, Hematochezia Genitourinary: Denies: Dysuria, Hematuria, Frequency Musculoskeletal: Denies: Back pain, Extremity Pain Skin: Denies: Rash, Wounds Neurological: Denies: Headache, Weakness, Numbness Physical Exam Vital Signs/Narrative: Vital Signs Temp Pulse Resp BP Pulse Ox 01/12/19 19:46 99.6 F H 108 H 20 H 129/77 H 99 01/12/19 17:52 102.7 F H 112 H 25 H 162/92 H 92 Inital Vital Signs reviewed: Yes General: Well nourished, Well developed, No Acute Distress Head: Normocephalic, Atraumatic Eyes: Perrl, EOMI ENT: Moist mucous membranes, No rhinorrhea Neck: Supple, Nontender Cardiovascular: Regular rate, Regular rhythm, No murmurs Respiratory: No distress, CTA bilaterally, Chest nontender Abdomen: Soft, Nondistended, Normal bowel sounds, Tender, - - Wound VAC is in place. There is minimal erythema the wound edge. There is no purulence in the back. Back: Nontender, Normal Inspection Extremities: Nontender, No edema Skin: Normal color, No rash Neurological: Alert, Oriented x3, Cranial nerves II-XII grossly intact, Normal Strength, Normal Sensation Psychological: Normal affect, Normal Mood Diagnostic/Tx/Re-eval Chest X-Ray - ED: 2 View, Read by ED Physician, Normal, Heart, Lungs, Mediastinum Clinical Impression(s) from Imaging Studies Chest X-Ray 01/12/19 18:25 IMPRESSION: No acute findings. Electronically Signed: Myrna Lucero MD at 18:58 EDT Tel , Service support , Abnormal Lab Results 01/12/19 01/12/19 01/12/19 17:59 17:59 17:59 WBC 10.8 RBC 3.40 L Hgb 10.7 L Hct 33.9 L MCV 99.7 H MCH 31.5 MCHC 31.6 L RDW Std Deviation 54.0 H RDW Coeff of Migdalia 14.7 H Plt Count 328 MPV 10.3 Immature Gran % (Auto) 0.600 Neut % (Auto) 74.2 H Lymph % (Auto) 10.0 L [place] % (Auto) 12.5 H Eos % (Auto) 2.3 Baso % (Auto) 0.4 Absolute Neuts (auto) 8.0 H Absolute Lymphs (auto) 1.08 Nucleated RBC % 0 PT 13.6 INR 1.1 Sodium 137 Potassium 4.6 Chloride 103 Carbon Dioxide 30.0 Anion Gap 4 L BUN 39 H Creatinine 0.82 Estim Creat Clear Calc 47.25 Est GFR (MDRD) Af Amer 86 Est GFR (MDRD) Non-Af 71 BUN/Creatinine Ratio 47.3 H Glucose 110 H Lactic Acid Calcium 9.3 Total Bilirubin 0.30 AST 32 ALT 25 Alkaline Phosphatase 173 H Total Protein 6.7 Albumin 2.5 L Globulin 4.2 Albumin/Globulin Ratio 0.6 L Urine Color Urine Clarity Urine pH Ur Specific [place] Urine Protein Urine Glucose (UA) Urine Ketones Urine Occult Blood Urine Nitrite Urine Bilirubin Urine Urobilinogen Ur Leukocyte Esterase Urine RBC Urine WBC Ur Squamous Epith Cells Urine Bacteria Urine Mucus 01/12/19 01/12/19 17:59 18:45 WBC RBC Hgb Hct MCV MCH MCHC RDW Std Deviation RDW Coeff of [place] Plt Count MPV Immature Gran % (Auto) Neut % (Auto) Lymph % (Auto) [place] % (Auto) Eos % (Auto) Baso % (Auto) Absolute Neuts (auto) Absolute Lymphs (auto) Nucleated RBC % PT INR Sodium Potassium Chloride Carbon Dioxide Anion Gap BUN Creatinine Estim Creat Clear Calc Est GFR (MDRD) Af Amer Est GFR (MDRD) Non-Af BUN/Creatinine Ratio Glucose Lactic Acid 1.2 Calcium Total Bilirubin AST ALT Alkaline Phosphatase Total Protein Albumin Globulin Albumin/Globulin Ratio Urine Color Yellow Urine Clarity Clear Urine pH 8.0 Ur Specific [place] 1.010 Urine Protein Negative Urine Glucose (UA) Normal Urine Ketones Negative Urine Occult Blood Negative Urine Nitrite Negative Urine Bilirubin Negative Urine Urobilinogen Normal Ur Leukocyte Esterase Negative Urine RBC 0 SEEN Urine WBC 0 SEEN Ur Squamous Epith Cells 0 SEEN Urine Bacteria 0 SEEN Urine Mucus 0 SEEN - Rhythm Strip Rhythm Strip: Sinus Rhythm Ectopy: None - Medical Decision Making The patient did have a T-max of one 2.7 here. She was given oral Tylenol. She really is totally asymptomatic. Metabolic work-up was pursued given her recent intervention. Chest x-ray shows no focal infiltrate. Urine shows no evidence of infection. White count was normal. Lactic acid was normal. At this point, the patient is already on antibiotics. Her fever was controlled with Tylenol. She has no evidence of other infectious process. She is feeling improved. I have attempted to reach Dr. Tafoya to discuss her care. I do however feel that she can safely be discharged back to her facility which she prefers. I was able to to review the patient's care with her surgeon. He is in agreement with this plan. Impression 1. Postoperative fever ED Disposition - Plan for ED Patient: Disposition: Home or Assisted Living Instructions: FEBRILE ILLNESS, Uncertain Cause (Adult) Referrals: Roosevelt Mahan DO [Primary Care Provider] -
[2019-01-12 20:17] VITALS: BP 129/76; PULSE 106; RESP 18; TEMP 37.6; O2SAT 95
== END 2019-01-12 20:18 | disposition home or self-care (01) ==
LOC: ED 18:20
PROVIDERS: Emergency Provider Emergency Medicine; Family Provider Family Medicine; PCP Family Medicine
DX: R50.82 Postprocedural fever (principal); Z97.8 Presence of other specified devices
CPT/HCPCS: 71045; 80053; 81001; 83605; 85025; 85610; 87040; 96360; 96361; 99285; J7030

== ENCOUNTER 2019-01-16 18:40 | Emergency (ER) | payer MEDICARE, OTHER, SELFPAY ==
[2019-01-16 18:41] VITALS: BP 117/45; PULSE 92; RESP 15; TEMP 36.9; O2SAT 96; BMI 31.3
[2019-01-16 18:57] VITALS: BP 117/45; PULSE 92; RESP 17; TEMP 36.9; O2SAT 96
[2019-01-16 19:18] LABS: Absolute Lymphocyte Count 1.08 X10^3/uL (0.83-4.51); Absolute Neutrophil Count 14.4 X10^3/uL (2.0-7.7); Basophil# 0.04 X10^3/uL; Basophil% 0.2 % (0-1); Eosinophil# 0.02 X10^3/uL; Eosinophils% 0.1 % (0-5); Hemoglobin 9.7 g/dL (12.0-15.0); Lymphocyte # 1.08 X10^3/ul (4.0); Lymphocyte % 6.4 % (19-41); Mean Corp Hgb Conc 31.3 g/dL (32-36); Mean Corpuscular Hgb 30.8 pg (27.0-32.0); Mean Corpuscular Volume 98.4 fL (81-99); Mean Platelet Vol. 9.9 fl (6.2-12.0); Monocyte# 1.21 X10^3/uL; Monocyte% 7.2 % (0-10); NRBC Flagged by Analyzer 0 % (0-5); Neutrophil # 14.38 X10^3/uL (2.7-7.7); Neutrophil % 85.4 % (47-70); Platelet Count 320 K/mm3 (150-450); RBC Distribution Width CV 14.6 % (11.6-14.6); RBC Distribution Width SD 52.7 fl (35.1-43.9); Red Blood Count 3.15 M/mm3 (4.2-5.4); White Blood Count 16.8 K/mm3 (4.4-11.0)
--- NOTE | 2019-01-16 19:20 | RAD_ITS ---
STUDY: X-RAY CHEST REASON FOR EXAM: Female, 78 years old. Chest pain TECHNIQUE: Frontal view of the chest COMPARISON: X-ray chest January 12, 2019 FINDINGS: Lung volumes are low with compressive changes. The lungs are clear. There are no pleural effusions. There is no pneumothorax. The heart is normal in size. The visualized osseous structures are within normal limits. RAD/Chest 1 View (Portable) IMPRESSION: No acute thoracic pathology. Low lung volumes with compressive changes. Electronically Signed: Cristobal Hung, at 19:32 EDT Tel , Service support ,
[2019-01-16 19:32] LABS: AST(SGOT) 31 U/L (15-37); Alanine Aminotransfer ALT/SGPT 26 U/L (13-56); Alkaline Phosphatase 170 U/L (45-117); Anion Gap 5 (5-15); BUN 56 mg/dL (7-18); BUN/Creat Ratio 57.3 RATIO (10-20); Bilirubin, Direct 0.14 mg/dL (0.00-0.30); Calcium,Total 9.2 mg/dL (8.5-10.1); Chloride 105 mmol/L (98-107); Creatinine, Serum 0.98 mg/dL (0.55-1.02); EST Glomerular Filtration Rate 58 mL/min (>60); Est Glom Filt Rate - Afr Amer 70 mL/min (>60); Estimated Creatinine Clearance 32.89 ml/min; Globulin 3.8 g/dL (2.2-4.2); Glucose 140 mg/dL (74-106); Potassium 4.6 mmol/L (3.5-5.1); Protein, Total 5.8 g/dL (6.4-8.2); Sodium Level 138 mmol/L (136-145)
[2019-01-16 20:09] LABS: Bacteria 0 SEEN /hpf (None Seen); Mucous, Urine 0 SEEN /hpf (<or=2+); Red Blood Cells-Urine 0 SEEN /hpf (0-5); Squamous Epithelial Cells - UA 0 SEEN /hpf (5-10); White Blood Cells 0 SEEN /hpf (0-5)
[2019-01-16 20:10] LABS: Color, Urine Yellow (Yellow); Glucose, Dipstick Normal (Normal); Ketone-Dipstick 5 mg/dl (Negative); Leukocyte Esterase-Dipstick Negative /ul (Negative); Nitrite-Dipstick Negative (Negative); Occult Blood-Urine Negative /ul (Negative); Protein-Dipstick Negative (Negative); Urine Bilirubin Dipstick Negative (Negative); Urine Clarity Clear (Clear); Urine Urobilinogen Normal (Normal); Urine pH 6.5 (5.0 - 8.0)
[2019-01-16 20:18] VITALS: BP 104/57; PULSE 94; RESP 20; TEMP 36.9; O2SAT 98
--- NOTE | 2019-01-16 20:35 | CT_ITS ---
STUDY: CT ABDOMEN AND PELVIS WITHOUT CONTRAST REASON FOR EXAM: Female, 78 years old. Abdominal pain and panniculus infection with fever. RADIATION DOSAGE (If Supplied By Facility): CTDIvol = ( 10.21 ) mGy, DLP = ( 748.43 ) mGycm TECHNIQUE: Transaxial images were obtained from the dome of the diaphragm to the symphysis pubis without oral contrast, and without intravenous contrast. Sagittal and coronal images were reconstructed. Individualized dose optimization techniques were used for this CT. COMPARISON: None. FINDINGS: Heart size is normal. 1.3 cm pleural-based nodule on the right, previously reported. Chronic right rib fractures. The liver is unremarkable. The gallbladder is surgically absent. The spleen and pancreas are unremarkable. Prior surgery or embolization in the left upper quadrant. The adrenal glands are normal. The kidneys are unremarkable. No stones or hydronephrosis. The aorta is normal in caliber. Infrarenal IVC filter. No free fluid or free air. Prior gastric surgery. No bowel obstruction or inflammatory change. Urinary bladder is unremarkable. Soft tissue edema in the right flank wall. Open pelvic wound. Normal osseous structures. CT/Abdomen/Pelvis without Cont IMPRESSION: 1. No acute intra-abdominal or intrapelvic findings. 2. Pleural-based nodule on the right, previously documented. 3. Soft tissue edema. Electronically Signed: Myrna Lucero MD at 21:48 EDT Tel , Service support ,
[2019-01-16 21:43] VITALS: BP 114/54; PULSE 94; RESP 23; TEMP 37.1; O2SAT 97
[2019-01-16 22:30] VITALS: BP 142/99; PULSE 96; RESP 16; TEMP 36.9; O2SAT 96
--- NOTE | 2019-01-16 22:46 | ED.VIS.GEN ---
History of Present Illness Chief Complaint: Fever Past Medical History - Allergies and Home Meds Allergies/Adverse Reactions: Allergies gentamicin Adverse Reaction (Verified 01/12/19 17:51) Unknown Primary Care Physician: Chung Marcos [Primary Care Provider] - Surgical History: cholecystectomy, - - Excisional debridement abdominal ulcerations and abdominal panniculectomy. Smoking Status: Never smoker - Family History Maternal Family History: Family History (Last Reviewed 01/05/19 @ 17:23 by Clarissa Orozco NP-C) Father Heart disease Cancer Mother No problems noted. Family History: Reports: - - Denies known paternal medical history including cardiac history. Physical Exam Vital Signs/Narrative: Vital Signs Temp Pulse Resp BP Pulse Ox 01/16/19 22:30 98.5 F 96 16 142/99 H 96 01/16/19 21:43 98.8 F 94 23 H 114/54 L 97 01/16/19 20:18 98.5 F 94 20 H 104/57 L 98 01/16/19 18:57 98.5 F 92 17 117/45 L 96 ED Disposition - Plan for ED Patient: Disposition: Home or Assisted Living Instructions: FEBRILE ILLNESS, Uncertain Cause (Adult) Referrals: Chung Marcos [Primary Care Provider] -
[2019-01-16] MEDS: oxyCODONE 5 MG Tablet 10 MG PO (22:51)
[2019-01-16 22:53] VITALS: BP 148/62; PULSE 97; RESP 18; O2SAT 95
--- NOTE | 2019-01-16 22:59 | ED.RN ---
Brother felt pt was too weak to go back to ECF vis private transport. We will attempt to send her back via local EMS.
[2019-01-17 01:00] VITALS: BP 140/69; PULSE 94; RESP 20; O2SAT 96
== END 2019-01-17 01:09 | disposition home or self-care (01) ==
PROVIDERS: Emergency Provider Emergency Medicine; Family Provider Family Medicine; PCP Family Medicine
DX: R50.9 Fever, unspecified (principal)
CPT/HCPCS: 71045; 74176; 80048; 80076; 81001; 85025; 87040; 99285

== ENCOUNTER 2019-01-19 13:45 | Outpatient (RCR) | payer MEDICARE, OTHER, SELFPAY ==
[2018-12-23 00:54] VITALS: BP 127/63; PULSE 87; RESP 16; TEMP 37.1
[2018-12-25 09:18] VITALS: BP 137/86; PULSE 102; RESP 18; TEMP 35.9; BMI 29.7
--- NOTE | 2018-12-25 10:27 | PCM.WC.PN ---
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 Burden is an 80-year-old who was referred to the wound center by her primary care physician due to nonhealing abdominal wall ulcer. This was started about 6 weeks ago. After onset, she was seen by her primary care physician and treated with a 10-day course of Keflex with some improvement noted. She was reevaluated after 3 weeks and subsequently referred here due to nonhealing of the ulcer. She admits to significant moisture in the yeast in her abdominal fold. She states that she tries to keep the area dry and applies plain powder to the area. She also admits to a lot of layering because she stays cold. She denies any significant discharge. She also denies chills or fever. Progress of Wound: Male currently in a penitentiary status post recent hospital admission for supratherapeutic INR and GI bleed. Worsening left lateral and right lateral ulcers. - Physical Exam Vital Signs Temp Pulse Resp BP 96.6 F L 102 H 18 137/86 H 12/25/18 09:18 12/25/18 09:18 12/25/18 09:18 12/25/18 09:18 General: Alert, Oriented x3, Cooperative, No apparent distress HEENT: Atraumatic, Normocephalic Oral: Moist Mucosa Neck: Supple Lungs: Normal air movement Abdomen: Soft, Obese Extremities: No cyanosis Skin: Ulcer/ Wound Wound Measurements and Assessment WC - Nurse 1 - General Ulcer Measurement Start: 12/25/18 09:18 Freq: Status: Active Protocol: Activity Type Activity Date Activity User E-Sign Co-Sign Detail Recorded Client Recorded Date Recorded By Document 12/25/18 09:18 DL [id number] 12/25/18 09:32 DL 12/25/18 09:18 Wound Center Nurse 1 [Ulcer Assessment] #4 R Lat ABD inf -Current Size (cm) - Length 0 -Current Size (cm) - Width 0 -Current Size (cm) - Depth 0 -Total Square Cm 0 -Photo Taken No -Exudate Amt None Present -Wound Margin Flat & Intact -Granulation Amt Small (1-33%) -Granulation Quality [place] -Necrosis Amt None Present (0 %) -Necrotic Tissue Type Adherent Slough -Structure Exposed N/A -Texture (Shanita-wound Skin Appearance) Scarring -Moisture (Shanita-wound Skin Appearance No Abnormality ) -Color (Shanita-wound Skin Appearance) No Abnormality -Temperature (Shanita-wound Skin No Abnormality Appearance) (Pt Warm) -Tenderness on Palpation (Shanita-wound No Skin Appearance) -Ulcer Cleansing Wound Cleanser -Foul Odor after Cleansing No -Anesthetic Used 4% Lidocaine Solution 3-left side abdomen -Current Size (cm) - Length 4.7 -Current Size (cm) - Width 7 -Current Size (cm) - Depth 1 -Total Square Cm 32.9 -Photo Taken No -Exudate Amt Medium -Exudate Type Serosanguineous -Wound Margin Distinct, Outline Attached -Granulation Amt None Present (0 %) -Necrosis Amt Large (67-100%) -Necrotic Tissue Type Adherent Slough -Structure Exposed N/A -Texture (Shanita-wound Skin Appearance) Scarring -Moisture (Shanita-wound Skin Appearance No Abnormality ) -Color (Shanita-wound Skin Appearance) Erythema -Temperature (Shanita-wound Skin No Abnormality Appearance) (Pt Warm) -Tenderness on Palpation (Shanita-wound No Skin Appearance) -Ulcer Cleansing Wound Cleanser -Foul Odor after Cleansing No -Anesthetic Used 4% Lidocaine Solution #2 Right Lower Abdomen- Medial -Current Size (cm) - Length 2 -Current Size (cm) - Width 3.8 -Current Size (cm) - Depth 2.2 -Total Square Cm 7.6 -Photo Taken No -Exudate Amt Medium -Exudate Type Serosanguineous -Wound Margin Distinct, Outline Attached -Granulation Amt Medium (34-66%) -Granulation Quality Red -Necrosis Amt Medium (34-66%) -Necrotic Tissue Type Adherent Slough -Structure Exposed N/A -Texture (Shanita-wound Skin Appearance) Scarring -Moisture (Shanita-wound Skin Appearance No Abnormality ) -Color (Shanita-wound Skin Appearance) Erythema -Temperature (Shanita-wound Skin No Abnormality Appearance) (Pt Warm) -Tenderness on Palpation (Shanita-wound No Skin Appearance) -Ulcer Cleansing Wound Cleanser -Foul Odor after Cleansing No -Anesthetic Used 4% Lidocaine Solution #1 Right Lower Abdomen- Lateral -Current Size (cm) - Length 1.5 -Current Size (cm) - Width 3.5 -Current Size (cm) - Depth 0.6 -Total Square Cm 5.25 -Photo Taken No -Exudate Amt Medium -Exudate Type Serosanguineous -Wound Margin Distinct, Outline Attached -Granulation Amt Small (1-33%) -Granulation Quality Red -Necrosis Amt Large (67-100%) -Necrotic Tissue Type Adherent Slough -Structure Exposed N/A -Texture (Shanita-wound Skin Appearance) Scarring -Moisture (Shanita-wound Skin Appearance No Abnormality ) -Color (Shanita-wound Skin Appearance) Erythema -Temperature (Shanita-wound Skin No Abnormality Appearance) (Pt Warm) -Tenderness on Palpation (Shanita-wound No Skin Appearance) -Ulcer Cleansing Wound Cleanser -Foul Odor after Cleansing No -Anesthetic Used 4% Lidocaine Solution WC - Nurse 2 - General Ulcer CM Notes Start: 12/25/18 09:18 Freq: Status: Active Protocol: Activity Type Activity Date Activity User E-Sign Co-Sign Detail Recorded Client Recorded Date Recorded By Document 12/25/18 09:44 MW [id number] 12/25/18 09:53 MW 12/25/18 09:44 Wound Center Nurse 2 [Procedure/Treatment] #4 R Lat ABD inf -Time 09:45 -Correct Patient Yes -Correct Side, Site, Position Yes -Correct Procedure Yes -Procedure Performed No -Post Debridement Size (cm) - Length 0 -Post Debridement Size (cm) - Width 0 -Post Debridement Size (cm) - Depth 0 -Total Square Cm 0 -Wound/Ulcer Outcome Healed- Epithelialized 3-left side abdomen -Time 09:44 -Correct Patient Yes -Correct Side, Site, Position Yes -Correct Procedure Yes -Procedure Performed Yes -Type of Procedure Debridement -Clinical Debridement Subcutaneous -Post Debridement Size (cm) - Length 4.0 -Post Debridement Size (cm) - Width 8.0 -Post Debridement Size (cm) - Depth 1.5 -Total Square Cm 32.00 -Wound/Ulcer Outcome Not Healed -Ulcer Cleansing Rinsed/ Irrigated with Saline -Foul Odor after Cleansing No -Bioengineered Tissue No -Bleeding Controlled with Pressure -Offloading No -Treatment Response Procedure Tolerated Well #2 Right Lower Abdomen- Medial -Time 09:44 -Correct Patient Yes -Correct Side, Site, Position Yes -Correct Procedure Yes -Procedure Performed Yes -Type of Procedure Debridement -Clinical Debridement Subcutaneous -Post Debridement Size (cm) - Length 1.0 -Post Debridement Size (cm) - Width 4.0 -Post Debridement Size (cm) - Depth 1.7 -Total Square Cm 4.00 -Wound/Ulcer Outcome Not Healed -Ulcer Cleansing Rinsed/ Irrigated with Saline -Foul Odor after Cleansing No -Bioengineered Tissue No -Bleeding Controlled with Pressure -Offloading No -Treatment Response Procedure Tolerated Well #1 Right Lower Abdomen- Lateral -Time 09:44 -Correct Patient Yes -Correct Side, Site, Position Yes -Correct Procedure Yes -Procedure Performed Yes -Type of Procedure Debridement -Clinical Debridement Subcutaneous -Post Debridement Size (cm) - Length 1.3 -Post Debridement Size (cm) - Width 4.0 -Post Debridement Size (cm) - Depth 0.6 -Total Square Cm 5.20 -Wound/Ulcer Outcome Not Healed -Ulcer Cleansing Rinsed/ Irrigated with Saline -Foul Odor after Cleansing No -Bioengineered Tissue No -Bleeding Controlled with Pressure -Offloading No -Treatment Response Procedure Tolerated Well [See Physician Procedure note for Specifics] Pain Scale: 0-10 Numeric [Pain] -Is Patient Pain Free? Yes Neurological: Cranial nerves II-XII grossly intact Psych/Mental Status: Normal Affect Debridement Note Post-Debridement Measurements/Treatment WC - Nurse 2 - General Ulcer CM Notes Start: 12/25/18 09:18 Freq: Status: Active Protocol: Activity Type Activity Date Activity User E-Sign Co-Sign Detail Recorded Client Recorded Date Recorded By Document 12/25/18 09:44 MW [id number] 12/25/18 09:53 MW 12/25/18 09:44 Wound Center Nurse 2 #4 R Lat ABD inf -Time 09:45 -Correct Patient Yes -Correct Side, Site, Position Yes -Correct Procedure Yes -Procedure Performed No -Post Debridement Size (cm) - Length 0 -Post Debridement Size (cm) - Width 0 -Post Debridement Size (cm) - Depth 0 -Total Square Cm 0 -Wound/Ulcer Outcome Healed- Epithelialized 3-left side abdomen -Time 09:44 -Correct Patient Yes -Correct Side, Site, Position Yes -Correct Procedure Yes -Procedure Performed Yes -Type of Procedure Debridement -Clinical Debridement Subcutaneous -Post Debridement Size (cm) - Length 4.0 -Post Debridement Size (cm) - Width 8.0 -Post Debridement Size (cm) - Depth 1.5 -Total Square Cm 32.00 -Wound/Ulcer Outcome Not Healed -Ulcer Cleansing Rinsed/ Irrigated with Saline -Foul Odor after Cleansing No -Bioengineered Tissue No -Bleeding Controlled with Pressure -Offloading No -Treatment Response Procedure Tolerated Well #2 Right Lower Abdomen- Medial -Time 09:44 -Correct Patient Yes -Correct Side, Site, Position Yes -Correct Procedure Yes -Procedure Performed Yes -Type of Procedure Debridement -Clinical Debridement Subcutaneous -Post Debridement Size (cm) - Length 1.0 -Post Debridement Size (cm) - Width 4.0 -Post Debridement Size (cm) - Depth 1.7 -Total Square Cm 4.00 -Wound/Ulcer Outcome Not Healed -Ulcer Cleansing Rinsed/ Irrigated with Saline -Foul Odor after Cleansing No -Bioengineered Tissue No -Bleeding Controlled with Pressure -Offloading No -Treatment Response Procedure Tolerated Well #1 Right Lower Abdomen- Lateral -Time 09:44 -Correct Patient Yes -Correct Side, Site, Position Yes -Correct Procedure Yes -Procedure Performed Yes -Type of Procedure Debridement -Clinical Debridement Subcutaneous -Post Debridement Size (cm) - Length 1.3 -Post Debridement Size (cm) - Width 4.0 -Post Debridement Size (cm) - Depth 0.6 -Total Square Cm 5.20 -Wound/Ulcer Outcome Not Healed -Ulcer Cleansing Rinsed/ Irrigated with Saline -Foul Odor after Cleansing No -Bioengineered Tissue No -Bleeding Controlled with Pressure -Offloading No -Treatment Response Procedure Tolerated Well Pain Scale: 0-10 Numeric Is Patient Pain Free? Yes Wound debrided: Left lateral abdomen Type of Debridement: Excisional debridement Anesthesia Used: 4% Lidocaine Solution Depth: Down to and including healthy tissue, in the subcutaneous layer Percentage of wound debrided: 100 Instrument Used: 7mm curette, #15 blade, Forceps Tissue Removed: Slough and Devitalized tissue Severity: Fat Layer Exposed Amount of bleeding with debridement: Mild Bleeding Controlled with: Pressure Patient tolerated procedure well - Additional Wound Wound debrided: Right medial abdomen Type of Debridement: Excisional debridement Anesthesia Used: 4% Lidocaine Solution Depth: Down to and including healthy tissue, in the subcutaneous layer Percentage of wound debrided: 100 Instrument Used: 7mm curette Tissue Removed: Slough and devitalized tissue Severity: Fat Layer Exposed Amount of bleeding with debridement: Mild Bleeding Controlled with: Pressure Patient tolerated procedure: Patient tolerated procedure well - Additional Wound Wound debrided: Right lateral Type of Debridement: Excisional debridement Anesthesia Used: 4% Lidocaine Solution Depth: Down to and including healthy tissue, in the subcutaneous layer Percentage of wound debrided: 100 Instrument Used: 7mm curette Tissue Removed: Slough and devitalized tissue Severity: Fat Layer Exposed Amount of bleeding with debridement: Mild Bleeding Controlled with: Pressure Patient tolerated procedure: Patient tolerated procedure well Assessment/Plan Active Problems (Last Reviewed 12/02/18 @ 13:26 by Holly Burden) 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 Worsening lateral ulcers. Right medial ulcer with worsening depth but very good granulation tissue. Continue Santyl to all ulcers. Change daily. Plan is for surgical debridement by Dr. Tafoya. Strongly advised that she keep surrounding area and pannus dry. Antifungal powder recommended. Use of absorbable clothing (100% cotton materials)also discussed. Advised to avoid layering. Increased protein intake also recommended. All her questions were answered and she was advised to call with any further questions or concerns. Follow-up in 1 week. This note was generated with [employer] dictation software. It may contain incorrect words, spelling, and punctuation that were not noted in checking the note before signing.
[2018-12-31 10:21] VITALS: BP 156/82; PULSE 94; RESP 18; TEMP 35.2; BMI 29.7
--- NOTE | 2018-12-31 11:55 | PN.PCM_ITS ---
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 Burden is an 80-year-old who was referred to the wound center by her primary care physician due to nonhealing abdominal wall ulcer. This was started about 6 weeks ago. After onset, she was seen by her primary care physician and treated with a 10-day course of Keflex with some improvement noted. She was reevaluated after 3 weeks and subsequently referred here due to nonhealing of the ulcer. She admits to significant moisture in the yeast in her abdominal fold. She states that she tries to keep the area dry and applies plain powder to the area. She also admits to a lot of layering because she stays cold. She denies any significant discharge. She also denies chills or fever. Progress of Wound: Stable. No new concerns at this time. Scheduled for Surgery with Dr. Tafoya on Saturday. - Physical Exam Vital Signs Temp Pulse Resp BP 95.3 F L 94 18 156/82 H 12/31/18 10:21 12/31/18 10:21 12/31/18 10:21 12/31/18 10:21 General: Alert, Oriented x3, Cooperative, No apparent distress HEENT: Atraumatic, Normocephalic Oral: Moist Mucosa Neck: Supple Lungs: Normal air movement Abdomen: Soft, Obese Extremities: No cyanosis Skin: Ulcer/ Wound Wound Measurements and Assessment WC - Nurse 1 - General Ulcer Measurement Start: 12/25/18 09:18 Freq: Status: Active Protocol: Activity Type Activity Date Activity User E-Sign Co-Sign Detail Recorded Client Recorded Date Recorded By Document 12/31/18 10:21 [facility] [id number] 12/31/18 10:27 [facility] 12/31/18 10:21 Wound Center Nurse 1 [Ulcer Assessment] 3-left side abdomen -Combined with other wound No -Current Size (cm) - Length 3.9 -Current Size (cm) - Width 7.3 -Current Size (cm) - Depth 1.8 -Total Square Cm 28.47 -Photo Taken No -Epithelialization None Present -Tunneling No -Undermining/Tunneling No -Circular Undermining No -Exudate Type Serosanguineous -Wound Margin Distinct, Outline Attached -Granulation Amt Small (1-33%) -Granulation Quality Kamas -Slough/Fibrin Yes -Necrosis Amt None Present (0 %) -Necrotic Tissue Type Adherent Slough -Texture (Shanita-wound Skin Appearance) Assessed, Localized Edema ,Scarring -Moisture (Shanita-wound Skin Appearance No Abnormality, ) Assessed -Color (Shanita-wound Skin Appearance) Erythema -Temperature (Shanita-wound Skin No Abnormality Appearance) (Pt Warm) -Tenderness on Palpation (Shanita-wound Yes Skin Appearance) -Ulcer Cleansing Rinsed/ Irrigated with Saline -Foul Odor after Cleansing No -Anesthetic Used 5% Lidocaine Gel #2 Right Lower Abdomen- Medial -Combined with other wound No -Current Size (cm) - Length 0.7 -Current Size (cm) - Width 3.4 -Current Size (cm) - Depth 1.6 -Total Square Cm 2.38 -Photo Taken No -Epithelialization None Present -Tunneling No -Undermining/Tunneling No -Circular Undermining No -Exudate Amt Medium -Exudate Type Serosanguineous -Wound Margin Distinct, Outline Attached -Granulation Amt Large (67-100%) -Granulation Quality Red -Slough/Fibrin Yes -Necrosis Amt Small (1-33%) -Necrotic Tissue Type Adherent Slough -Structure Exposed None/Limited to Skin Breakdown -Texture (Shanita-wound Skin Appearance) Localized Edema ,Scarring -Moisture (Shanita-wound Skin Appearance No Abnormality, ) Assessed -Color (Shanita-wound Skin Appearance) Assessed, Erythema -Temperature (Shanita-wound Skin No Abnormality Appearance) (Pt Warm) -Tenderness on Palpation (Shanita-wound Yes Skin Appearance) -Ulcer Cleansing Rinsed/ Irrigated with Saline -Foul Odor after Cleansing No -Anesthetic Used 5% Lidocaine Gel #1 Right Lower Abdomen- Lateral -Combined with other wound No -Current Size (cm) - Length 1.1 -Current Size (cm) - Width 3.8 -Current Size (cm) - Depth 0.6 -Total Square Cm 4.18 -Photo Taken No -Epithelialization None Present -Tunneling No -Undermining/Tunneling No -Circular Undermining No -Exudate Amt Medium -Exudate Type Serosanguineous -Wound Margin Distinct, Outline Attached -Granulation Amt Medium (34-66%) -Granulation Quality Red -Slough/Fibrin Yes -Necrosis Amt None Present (0 %) -Necrotic Tissue Type Adherent Slough -Texture (Shanita-wound Skin Appearance) Scarring -Moisture (Shanita-wound Skin Appearance No Abnormality, ) Assessed -Color (Shanita-wound Skin Appearance) Erythema -Temperature (Shanita-wound Skin No Abnormality Appearance) (Pt Warm) -Tenderness on Palpation (Shanita-wound Yes Skin Appearance) -Ulcer Cleansing Rinsed/ Irrigated with Saline -Foul Odor after Cleansing No -Anesthetic Used 5% Lidocaine Gel [Edema Assessment] -Lower Limb Edema Present NA WC - Nurse 2 - General Ulcer CM Notes Start: 12/25/18 09:18 Freq: Status: Active Protocol: Activity Type Activity Date Activity User E-Sign Co-Sign Detail Recorded Client Recorded Date Recorded By Document 12/31/18 10:54 MW [id number] 12/31/18 11:01 MW 12/31/18 10:54 Wound Center Nurse 2 [Procedure/Treatment] 3-left side abdomen -Time 10:54 -Correct Patient Yes -Correct Side, Site, Position Yes -Correct Procedure Yes -Procedure Performed Yes -Type of Procedure Debridement -Clinical Debridement Subcutaneous -Post Debridement Size (cm) - Length 4.0 -Post Debridement Size (cm) - Width 7.5 -Post Debridement Size (cm) - Depth 0.9 -Total Square Cm 30.00 -Wound/Ulcer Outcome Not Healed -Ulcer Cleansing Rinsed/ Irrigated with Saline -Foul Odor after Cleansing No -Bioengineered Tissue No -Bleeding Controlled with Pressure -Offloading No -Treatment Response Procedure Tolerated Well #2 Right Lower Abdomen- Medial -Time 10:54 -Correct Patient Yes -Correct Side, Site, Position Yes -Correct Procedure Yes -Procedure Performed Yes -Type of Procedure Debridement -Clinical Debridement Subcutaneous -Post Debridement Size (cm) - Length 1.0 -Post Debridement Size (cm) - Width 3.0 -Post Debridement Size (cm) - Depth 2.0 -Total Square Cm 3.00 -Wound/Ulcer Outcome Not Healed -Ulcer Cleansing Rinsed/ Irrigated with Saline -Foul Odor after Cleansing No -Bioengineered Tissue No -Bleeding Controlled with Pressure -Offloading No -Treatment Response Procedure Tolerated Well #1 Right Lower Abdomen- Lateral -Time 10:54 -Correct Patient Yes -Correct Side, Site, Position Yes -Correct Procedure Yes -Procedure Performed Yes -Type of Procedure Debridement -Clinical Debridement Subcutaneous -Post Debridement Size (cm) - Length 1.0 -Post Debridement Size (cm) - Width 3.0 -Post Debridement Size (cm) - Depth 1.0 -Total Square Cm 3.00 -Wound/Ulcer Outcome Not Healed -Ulcer Cleansing Rinsed/ Irrigated with Saline -Foul Odor after Cleansing No -Bioengineered Tissue No -Bleeding Controlled with Pressure -Offloading No -Treatment Response Procedure Tolerated Well [See Physician Procedure note for Specifics] Pain Scale: 0-10 Numeric [Pain] -Is Patient Pain Free? Yes Musculoskeletal: No Muscle Wasting Neurological: Cranial nerves II-XII grossly intact Psych/Mental Status: Normal Affect Debridement Note Post-Debridement Measurements/Treatment WC - Nurse 2 - General Ulcer CM Notes Start: 12/25/18 09:18 Freq: Status: Active Protocol: Activity Type Activity Date Activity User E-Sign Co-Sign Detail Recorded Client Recorded Date Recorded By Document 12/25/18 09:44 MW [id number] 12/25/18 09:53 MW Document 12/31/18 10:54 MW [id number] 12/31/18 11:01 MW 12/25/18 12/31/18 09:44 10:54 Wound Center Nurse 2 #4 R Lat ABD inf -Time 09:45 -Correct Patient Yes -Correct Side, Site, Position Yes -Correct Procedure Yes -Procedure Performed No -Post Debridement Size (cm) - Length 0 -Post Debridement Size (cm) - Width 0 -Post Debridement Size (cm) - Depth 0 -Total Square Cm 0 -Wound/Ulcer Outcome Healed- Epithelialized 3-left side abdomen -Time 09:44 10:54 -Correct Patient Yes Yes -Correct Side, Site, Position Yes Yes -Correct Procedure Yes Yes -Procedure Performed Yes Yes -Type of Procedure Debridement Debridement -Clinical Debridement Subcutaneous Subcutaneous -Post Debridement Size (cm) - Length 4.0 4.0 -Post Debridement Size (cm) - Width 8.0 7.5 -Post Debridement Size (cm) - Depth 1.5 0.9 -Total Square Cm 32.00 30.00 -Wound/Ulcer Outcome Not Healed Not Healed -Ulcer Cleansing Rinsed/ Rinsed/ Irrigated with Irrigated with Saline Saline -Foul Odor after Cleansing No No -Bioengineered Tissue No No -Bleeding Controlled with Pressure Pressure -Offloading No No -Treatment Response Procedure Procedure Tolerated Well Tolerated Well #2 Right Lower Abdomen- Medial -Time 09:44 10:54 -Correct Patient Yes Yes -Correct Side, Site, Position Yes Yes -Correct Procedure Yes Yes -Procedure Performed Yes Yes -Type of Procedure Debridement Debridement -Clinical Debridement Subcutaneous Subcutaneous -Post Debridement Size (cm) - Length 1.0 1.0 -Post Debridement Size (cm) - Width 4.0 3.0 -Post Debridement Size (cm) - Depth 1.7 2.0 -Total Square Cm 4.00 3.00 -Wound/Ulcer Outcome Not Healed Not Healed -Ulcer Cleansing Rinsed/ Rinsed/ Irrigated with Irrigated with Saline Saline -Foul Odor after Cleansing No No -Bioengineered Tissue No No -Bleeding Controlled with Pressure Pressure -Offloading No No -Treatment Response Procedure Procedure Tolerated Well Tolerated Well #1 Right Lower Abdomen- Lateral -Time 09:44 10:54 -Correct Patient Yes Yes -Correct Side, Site, Position Yes Yes -Correct Procedure Yes Yes -Procedure Performed Yes Yes -Type of Procedure Debridement Debridement -Clinical Debridement Subcutaneous Subcutaneous -Post Debridement Size (cm) - Length 1.3 1.0 -Post Debridement Size (cm) - Width 4.0 3.0 -Post Debridement Size (cm) - Depth 0.6 1.0 -Total Square Cm 5.20 3.00 -Wound/Ulcer Outcome Not Healed Not Healed -Ulcer Cleansing Rinsed/ Rinsed/ Irrigated with Irrigated with Saline Saline -Foul Odor after Cleansing No No -Bioengineered Tissue No No -Bleeding Controlled with Pressure Pressure -Offloading No No -Treatment Response Procedure Procedure Tolerated Well Tolerated Well Pain Scale: 0-10 Numeric Is Patient Pain Free? Yes Yes Wound debrided: Right lower abdomen (lateral Type of Debridement: Excisional debridement Anesthesia Used: 4% Lidocaine Solution Depth: Down to and including healthy tissue, in the subcutaneous layer Percentage of wound debrided: 100 Instrument Used: 7mm curette Tissue Removed: Slough and devitalized tissue Severity: Fat Layer Exposed Amount of bleeding with debridement: Mild Bleeding Controlled with: Pressure Patient tolerated procedure well - Additional Wound Wound debrided: Right lower abdomen (medial) Type of Debridement: Excisional debridement Anesthesia Used: 4% Lidocaine Solution Depth: Down to and including healthy tissue, in the subcutaneous layer Percentage of wound debrided: 100 Instrument Used: 7mm curette Tissue Removed: Slough and devitalized tissue Severity: Fat Layer Exposed Amount of bleeding with debridement: Mild Bleeding Controlled with: Pressure Patient tolerated procedure: Patient tolerated procedure well - Additional Wound Wound debrided: Left lower abdomen Type of Debridement: Excisional debridement Anesthesia Used: 4% Lidocaine Solution Depth: Down to and including healthy tissue, in the subcutaneous layer Percentage of wound debrided: 100 Instrument Used: 7mm curette Tissue Removed: Slough and devitalized tissue Severity: Fat Layer Exposed Amount of bleeding with debridement: Mild Bleeding Controlled with: Pressure Patient tolerated procedure: Patient tolerated procedure well Assessment/Plan Active Problems (Last Reviewed 12/02/18 @ 13:26 by Holly Burden) 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 Stable Ulcers. continue Santyl to all ulcers. Change daily. Plan is for surgical debridement by Dr. Tafoya. Strongly advised that she keep surrounding area and pannus dry. Antifungal powder recommended. Use of absorbable clothing (100% cotton materials)also discussed. Advised to avoid layering. Increased protein intake also recommended. All her questions were answered and she was advised to call with any further questions or concerns. Plan is for surgery with Dr. Tafoya on Saturday. Schedule follow up pending surgery. This note was generated with [employer] software. It may contain incorrect words, spelling, and punctuation that were not noted in checking the note before signing.
[2019-01-12 13:48] VITALS: BP 147/82; PULSE 103; RESP 18; TEMP 37.1; BMI 29.7
--- NOTE | 2019-01-12 14:23 | PN.PCM_ITS ---
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 History of Wound: 80-year-old woman presented to the [facility] with a large abdominal panniculus and associated multiple painful ulcerations that are infected. She had a wound culture in 10/10 which showed Pseudomonas aeroginosa, MRSE, Corynebacterium amycolatum, and Anaerobic cocci. She was placed on Cipro and Flagyl. Another wound culture in 11/10 showed MRSE again but it was felt to be a contaminant. Because of persistent pain and ulceration, another wound culture was done on 12/03/18. It showed Proteus mirabilis, MRSE, and Anaerobic cocci. On 01/05/19 she underwent . Surgical preparation lower anterior abdominal wall with excisional debridement skin, subcutaneous tissue, and fascia for necrotizing soft tissue infection abscess ulcers (588 cm2). 2. Abdominal panniculectomy. Wound care is now a wound VAC. She states she has a good appetite. Progress of Wound: Stable. Post op surgery from last Saturday01/05/19 - Physical Exam Vital Signs Temp Pulse Resp BP 98.8 F 103 H 18 147/82 H 01/12/19 13:48 01/12/19 13:48 01/12/19 13:48 01/12/19 13:48 General: Alert, Oriented x3, Cooperative HEENT: Atraumatic, PERRLA Oral: Moist Mucosa Lungs: Normal air movement Cardiovascular: Regular rate Abdomen: Soft Extremities: Capillary Refill Less than 3 Seconds Skin: Ulcer/ Wound - Lower abdomen ulcer Wound Measurements and Assessment - Nurse 1 - General Ulcer Measurement Start: 12/25/18 09:18 Freq: Status: Active Protocol: Activity Type Activity Date Activity User E-Sign Co-Sign Detail Recorded Client Recorded Date Recorded By Document 01/12/19 13:48 [facility] [id number] 01/12/19 13:50 [facility] 01/12/19 13:48 Wound Center Nurse 1 [Ulcer Assessment] #5- LOWER ABDOMEN -Combined with other wound No -Current Size (cm) - Length 6.0 -Current Size (cm) - Width 52 -Current Size (cm) - Depth 6.1 -Total Square Cm 312.0 -Date of Last Picture (Recall this 01/12/19 field) -Photo Taken Yes -Epithelialization None Present -Tunneling No -Undermining/Tunneling No -Circular Undermining No -Classification - Thickness Full Thickness with Exposed Support Structure -Exudate Amt Large -Exudate Type Serosanguineous -Wound Margin Distinct, Outline Attached -Granulation Amt Large (67-100%) -Granulation Quality Red -Slough/Fibrin Yes -Necrosis Amt Medium (34-66%) -Necrotic Tissue Type Adherent Slough -Texture (Shanita-wound Skin Appearance) Assessed, Scarring -Moisture (Shanita-wound Skin Appearance Assessed ) -Color (Shanita-wound Skin Appearance) Assessed, Erythema -Temperature (Shanita-wound Skin No Abnormality Appearance) (Pt Warm) -Tenderness on Palpation (Shanita-wound Yes Skin Appearance) -Ulcer Cleansing SOAP AND WATER -Foul Odor after Cleansing No -Anesthetic Used 4% Lidocaine Solution,5% Lidocaine Gel - Nurse 2 - General Ulcer CM Notes Start: 12/25/18 09:18 Freq: Status: Active Protocol: Activity Type Activity Date Activity User E-Sign Co-Sign Detail Recorded Client Recorded Date Recorded By Document 01/12/19 14:07 [id number] 01/12/19 14:08 01/12/19 14:07 Wound Center Nurse 2 [Procedure/Treatment] -Correct Patient No -Correct Side, Site, Position No -Correct Procedure No -Procedure Performed No -Wound/Ulcer Outcome Not Healed -Ulcer Cleansing Rinsed/ Irrigated with Saline -Foul Odor after Cleansing No -Bioengineered Tissue No -Bleeding Controlled with Pressure -Offloading No -Treatment Response Procedure Tolerated Well [See Physician Procedure note for Specifics] Pain Scale: 0-10 Numeric [Pain] -Is Patient Pain Free? No Musculoskeletal: No Tenderness to Palpation of Joints or Extremities Neurological: Neuro grossly intact Psych/Mental Status: Normal Affect, Appropriate Debridement Note Post-Debridement Measurements/Treatment WC - Nurse 2 - General Ulcer CM Notes Start: 12/25/18 09:18 Freq: Status: Active Protocol: Activity Type Activity Date Activity User E-Sign Co-Sign Detail Recorded Client Recorded Date Recorded By Document 12/25/18 09:44 MW [id number] 12/25/18 09:53 MW Document 12/31/18 10:54 MW [id number] 12/31/18 11:01 MW Document 01/12/19 14:07 [id number] 01/12/19 14:08 12/25/18 12/31/18 01/12/19 09:44 10:54 14:07 Wound Center Nurse 2 #5- LOWER ABDOMEN -Correct Patient No -Correct Side, Site, Position No -Correct Procedure No -Procedure Performed No -Wound/Ulcer Outcome Not Healed -Ulcer Cleansing Rinsed/ Irrigated with Saline -Foul Odor after Cleansing No -Bioengineered Tissue No -Bleeding Controlled with Pressure -Offloading No -Treatment Response Procedure Tolerated Well #4 R Lat ABD inf -Time 09:45 -Correct Patient Yes -Correct Side, Site, Position Yes -Correct Procedure Yes -Procedure Performed No -Post Debridement Size (cm) - Length 0 -Post Debridement Size (cm) - Width 0 -Post Debridement Size (cm) - Depth 0 -Total Square Cm 0 -Wound/Ulcer Outcome Healed- Epithelialized 3-left side abdomen -Time 09:44 10:54 -Correct Patient Yes Yes -Correct Side, Site, Position Yes Yes -Correct Procedure Yes Yes -Procedure Performed Yes Yes -Type of Procedure Debridement Debridement -Clinical Debridement Subcutaneous Subcutaneous -Post Debridement Size (cm) - Length 4.0 4.0 -Post Debridement Size (cm) - Width 8.0 7.5 -Post Debridement Size (cm) - Depth 1.5 0.9 -Total Square Cm 32.00 30.00 -Wound/Ulcer Outcome Not Healed Not Healed -Ulcer Cleansing Rinsed/ Rinsed/ Irrigated with Irrigated with Saline Saline -Foul Odor after Cleansing No No -Bioengineered Tissue No No -Bleeding Controlled with Pressure Pressure -Offloading No No -Treatment Response Procedure Procedure Tolerated Well Tolerated Well #2 Right Lower Abdomen- Medial -Time 09:44 10:54 -Correct Patient Yes Yes -Correct Side, Site, Position Yes Yes -Correct Procedure Yes Yes -Procedure Performed Yes Yes -Type of Procedure Debridement Debridement -Clinical Debridement Subcutaneous Subcutaneous -Post Debridement Size (cm) - Length 1.0 1.0 -Post Debridement Size (cm) - Width 4.0 3.0 -Post Debridement Size (cm) - Depth 1.7 2.0 -Total Square Cm 4.00 3.00 -Wound/Ulcer Outcome Not Healed Not Healed -Ulcer Cleansing Rinsed/ Rinsed/ Irrigated with Irrigated with Saline Saline -Foul Odor after Cleansing No No -Bioengineered Tissue No No -Bleeding Controlled with Pressure Pressure -Offloading No No -Treatment Response Procedure Procedure Tolerated Well Tolerated Well #1 Right Lower Abdomen- Lateral -Time 09:44 10:54 -Correct Patient Yes Yes -Correct Side, Site, Position Yes Yes -Correct Procedure Yes Yes -Procedure Performed Yes Yes -Type of Procedure Debridement Debridement -Clinical Debridement Subcutaneous Subcutaneous -Post Debridement Size (cm) - Length 1.3 1.0 -Post Debridement Size (cm) - Width 4.0 3.0 -Post Debridement Size (cm) - Depth 0.6 1.0 -Total Square Cm 5.20 3.00 -Wound/Ulcer Outcome Not Healed Not Healed -Ulcer Cleansing Rinsed/ Rinsed/ Irrigated with Irrigated with Saline Saline -Foul Odor after Cleansing No No -Bioengineered Tissue No No -Bleeding Controlled with Pressure Pressure -Offloading No No -Treatment Response Procedure Procedure Tolerated Well Tolerated Well Pain Scale: 0-10 Numeric Is Patient Pain Free? 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 Nonhealing infected multiple abdominal ulcerations. 2. Abdominal panniculus. 3. Abdominal wall skin crease intertrigo. 4. jail use of anticoagulation. Plan: On 01/05/19 she under went 1. Surgical preparation lower anterior abdominal wall with excisional debridement skin, subcutaneous tissue, and fascia for necrotizing soft tissue infection abscess ulcers (588 cm2). 2. Abdominal panniculectomy. Wound culture from surgery positive for Proteus mirabilis. She was placed on Levaquin on discharge from the hospital which is sensitive. Wound cultures from 12/16/18 showed Proteus mirabilis, MRSE, and Anaerobic cocci. She was placed on Augmentin and Doxycycline. She is drinking 2-3 protein shakes per day and attempting to eat at least 1/2 of her meals at the facility that she is in. Follow up in one week. Code Visit 12064
[2019-01-19 12:51] VITALS: BP 102/58; PULSE 98; RESP 24; TEMP 37.3; BMI 29.7
--- NOTE | 2019-01-19 18:42 | PCM.WC.PN ---
Type of Wound Date of Service: 01/19/19 Chief Complaint: Nonhealing infected ulcerations lower anterior abdominal wall. History of Wound: Surgery 01/05/19 - 1. Surgical preparation lower anterior abdominal wall with excisional debridement skin, subcutaneous tissue, and fascia for necrotizing soft tissue infection abscess ulcers (588 cm2). 2. Abdominal panniculectomy. Wound care - VAC. Operative culture - Proteus mirabilis. Preop culture showed Proteus mirabilis, MRSE, and Anaerobic cocci. She is currently on Augmentin an Doxycycline. Prealbumin from was 15.2. Encourage nutritional supplementation with protein to help the healing process. She has been to the ED a couple of times last week because of issues with the VAC and fever. There has been some questions about the VAC not working at the [facility] which can lead to a fever and wound infection. Progress of Wound: Recent surgery 01/05/19. - Physical Exam Vital Signs Temp Pulse Resp BP 99.1 F 98 24 H 102/58 L 01/19/19 12:51 01/19/19 12:51 01/19/19 12:51 01/19/19 12:51 Wound Measurements and Assessment WC - Nurse 1 - General Ulcer Measurement Start: 12/25/18 09:18 Freq: Status: Active Protocol: Activity Type Activity Date Activity User E-Sign Co-Sign Detail Recorded Client Recorded Date Recorded By Document 01/19/19 12:51 DL [id number] 01/19/19 13:17 DL 01/19/19 12:51 Wound Center Nurse 1 [Ulcer Assessment] #5- LOWER ABDOMEN -Current Size (cm) - Length 50 -Current Size (cm) - Width 4 -Current Size (cm) - Depth 6 -Total Square Cm 200 -Photo Taken No -Exudate Amt Large -Exudate Type Serosanguineous -Wound Margin Distinct, Outline Attached -Granulation Amt Medium (34-66%) -Granulation Quality Red -Necrosis Amt Medium (34-66%) -Necrotic Tissue Type Adherent Slough -Structure Exposed N/A -Texture (Shanita-wound Skin Appearance) Scarring -Moisture (Shanita-wound Skin Appearance No Abnormality ) -Color (Shanita-wound Skin Appearance) No Abnormality -Temperature (Shanita-wound Skin No Abnormality Appearance) (Pt Warm) -Tenderness on Palpation (Shanita-wound No Skin Appearance) -Ulcer Cleansing Wound Cleanser -Foul Odor after Cleansing No -Anesthetic Used 4% Lidocaine Solution - Nurse 2 - General Ulcer CM Notes Start: 12/25/18 09:18 Freq: Status: Active Protocol: Activity Type Activity Date Activity User E-Sign Co-Sign Detail Recorded Client Recorded Date Recorded By Document 01/19/19 13:53 [id number] 01/19/19 13:54 01/19/19 13:53 Wound Center Nurse 2 [Procedure/Treatment] -Time 13:53 -Correct Patient Yes -Correct Side, Site, Position Yes -Correct Procedure Yes -Procedure Performed Yes -Type of Procedure Debridement -Clinical Debridement Subcutaneous -Post Debridement Size (cm) - Length 50.1 -Post Debridement Size (cm) - Width 4.1 -Post Debridement Size (cm) - Depth 6.1 -Total Square Cm 205.41 -Wound/Ulcer Outcome Not Healed -Ulcer Cleansing Rinsed/ Irrigated with Saline -Foul Odor after Cleansing No -Bioengineered Tissue No -Bleeding Controlled with Pressure -Offloading No -Treatment Response Procedure Tolerated Well [See Physician Procedure note for Specifics] Pain Scale: 0-10 Numeric [Pain] -Is Patient Pain Free? Yes Debridement Note Post-Debridement Measurements/Treatment WC - Nurse 2 - General Ulcer CM Notes Start: 12/25/18 09:18 Freq: Status: Active Protocol: Activity Type Activity Date Activity User E-Sign Co-Sign Detail Recorded Client Recorded Date Recorded By Document 12/25/18 09:44 MW [id number] 12/25/18 09:53 MW Document 12/31/18 10:54 MW [id number] 12/31/18 11:01 MW Document 01/12/19 14:07 [id number] 01/12/19 14:08 JF Document 01/19/19 13:53 [id number] 01/19/19 13:54 12/25/18 12/31/18 01/12/19 09:44 10:54 14:07 Wound Center Nurse 2 #5- LOWER ABDOMEN -Time -Correct Patient No -Correct Side, Site, Position No -Correct Procedure No -Procedure Performed No -Type of Procedure -Clinical Debridement -Post Debridement Size (cm) - Length -Post Debridement Size (cm) - Width -Post Debridement Size (cm) - Depth -Total Square Cm -Wound/Ulcer Outcome Not Healed -Ulcer Cleansing Rinsed/ Irrigated with Saline -Foul Odor after Cleansing No -Bioengineered Tissue No -Bleeding Controlled with Pressure -Offloading No -Treatment Response Procedure Tolerated Well #4 R Lat ABD inf -Time 09:45 -Correct Patient Yes -Correct Side, Site, Position Yes -Correct Procedure Yes -Procedure Performed No -Post Debridement Size (cm) - Length 0 -Post Debridement Size (cm) - Width 0 -Post Debridement Size (cm) - Depth 0 -Total Square Cm 0 -Wound/Ulcer Outcome Healed- Epithelialized 3-left side abdomen -Time 09:44 10:54 -Correct Patient Yes Yes -Correct Side, Site, Position Yes Yes -Correct Procedure Yes Yes -Procedure Performed Yes Yes -Type of Procedure Debridement Debridement -Clinical Debridement Subcutaneous Subcutaneous -Post Debridement Size (cm) - Length 4.0 4.0 -Post Debridement Size (cm) - Width 8.0 7.5 -Post Debridement Size (cm) - Depth 1.5 0.9 -Total Square Cm 32.00 30.00 -Wound/Ulcer Outcome Not Healed Not Healed -Ulcer Cleansing Rinsed/ Rinsed/ Irrigated with Irrigated with Saline Saline -Foul Odor after Cleansing No No -Bioengineered Tissue No No -Bleeding Controlled with Pressure Pressure -Offloading No No -Treatment Response Procedure Procedure Tolerated Well Tolerated Well #2 Right Lower Abdomen- Medial -Time 09:44 10:54 -Correct Patient Yes Yes -Correct Side, Site, Position Yes Yes -Correct Procedure Yes Yes -Procedure Performed Yes Yes -Type of Procedure Debridement Debridement -Clinical Debridement Subcutaneous Subcutaneous -Post Debridement Size (cm) - Length 1.0 1.0 -Post Debridement Size (cm) - Width 4.0 3.0 -Post Debridement Size (cm) - Depth 1.7 2.0 -Total Square Cm 4.00 3.00 -Wound/Ulcer Outcome Not Healed Not Healed -Ulcer Cleansing Rinsed/ Rinsed/ Irrigated with Irrigated with Saline Saline -Foul Odor after Cleansing No No -Bioengineered Tissue No No -Bleeding Controlled with Pressure Pressure -Offloading No No -Treatment Response Procedure Procedure Tolerated Well Tolerated Well #1 Right Lower Abdomen- Lateral -Time 09:44 10:54 -Correct Patient Yes Yes -Correct Side, Site, Position Yes Yes -Correct Procedure Yes Yes -Procedure Performed Yes Yes -Type of Procedure Debridement Debridement -Clinical Debridement Subcutaneous Subcutaneous -Post Debridement Size (cm) - Length 1.3 1.0 -Post Debridement Size (cm) - Width 4.0 3.0 -Post Debridement Size (cm) - Depth 0.6 1.0 -Total Square Cm 5.20 3.00 -Wound/Ulcer Outcome Not Healed Not Healed -Ulcer Cleansing Rinsed/ Rinsed/ Irrigated with Irrigated with Saline Saline -Foul Odor after Cleansing No No -Bioengineered Tissue No No -Bleeding Controlled with Pressure Pressure -Offloading No No -Treatment Response Procedure Procedure Tolerated Well Tolerated Well Pain Scale: 0-10 Numeric Is Patient Pain Free? Yes Yes No 01/19/19 13:53 Wound Center Nurse 2 #5- LOWER ABDOMEN -Time 13:53 -Correct Patient Yes -Correct Side, Site, Position Yes -Correct Procedure Yes -Procedure Performed Yes -Type of Procedure Debridement -Clinical Debridement Subcutaneous -Post Debridement Size (cm) - Length 50.1 -Post Debridement Size (cm) - Width 4.1 -Post Debridement Size (cm) - Depth 6.1 -Total Square Cm 205.41 -Wound/Ulcer Outcome Not Healed -Ulcer Cleansing Rinsed/ Irrigated with Saline -Foul Odor after Cleansing No -Bioengineered Tissue No -Bleeding Controlled with Pressure -Offloading No -Treatment Response Procedure Tolerated Well #4 R Lat ABD inf -Time -Correct Patient -Correct Side, Site, Position -Correct Procedure -Procedure Performed -Post Debridement Size (cm) - Length -Post Debridement Size (cm) - Width -Post Debridement Size (cm) - Depth -Total Square Cm -Wound/Ulcer Outcome 3-left side abdomen -Time -Correct Patient -Correct Side, Site, Position -Correct Procedure -Procedure Performed -Type of Procedure -Clinical Debridement -Post Debridement Size (cm) - Length -Post Debridement Size (cm) - Width -Post Debridement Size (cm) - Depth -Total Square Cm -Wound/Ulcer Outcome -Ulcer Cleansing -Foul Odor after Cleansing -Bioengineered Tissue -Bleeding Controlled with -Offloading -Treatment Response #2 Right Lower Abdomen- Medial -Time -Correct Patient -Correct Side, Site, Position -Correct Procedure -Procedure Performed -Type of Procedure -Clinical Debridement -Post Debridement Size (cm) - Length -Post Debridement Size (cm) - Width -Post Debridement Size (cm) - Depth -Total Square Cm -Wound/Ulcer Outcome -Ulcer Cleansing -Foul Odor after Cleansing -Bioengineered Tissue -Bleeding Controlled with -Offloading -Treatment Response #1 Right Lower Abdomen- Lateral -Time -Correct Patient -Correct Side, Site, Position -Correct Procedure -Procedure Performed -Type of Procedure -Clinical Debridement -Post Debridement Size (cm) - Length -Post Debridement Size (cm) - Width -Post Debridement Size (cm) - Depth -Total Square Cm -Wound/Ulcer Outcome -Ulcer Cleansing -Foul Odor after Cleansing -Bioengineered Tissue -Bleeding Controlled with -Offloading -Treatment Response Pain Scale: 0-10 Numeric Is Patient Pain Free? Yes Wound debrided: #5 Lower anterior abdominal wall. Laterality: Not Applicable Wound Grade/Stage: 2. Type of Debridement: Excisional debridement Anesthesia Used: 4% Lidocaine Solution Depth: Down to and including healthy tissue, in the subcutaneous layer Percentage of wound debrided: 100 Instrument Used: 7mm curette Tissue Removed: subcutaneous tissue. Severity: Fat Layer Exposed Amount of bleeding with debridement: Mild Bleeding Controlled with: Pressure Patient tolerated procedure well, - - the abdominal wall ulcer shows no evidence of infection. Some fat necrosis present. Minimal exudate present. Assessment/Plan Assessment: 1. Nonhealing infected multiple abdominal ulceration abscesses. 2. 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 3. Abdominal panniculus. 4. Abdominal wall skin crease intertrigo. 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 6. s/p surgical preparation lower anterior abdominal wall with excisional debridement skin, subcutaneous tissue, and fascia for necrotizing soft tissue infection abscess ulcers (588 cm2) and abdominal panniculectomy. Plan: There is no evidence of infection in the abdominal wall wound. There has been issues with the VAC. So will place the VAC on hold and begin Dakin's dressing changes twice a day. After a few more weeks of healing, will consider closing the wound with a complex secondary wound closure. This would be done on an outpatient basis under general anesthesia. Will have drains for several days and will wear an abdominal binder. Patient is interested in proceeding with wound closure. Prealbumin from 01/06/19 was 15.2. Encourage nutritional supplementation with protein to help the healing process. Continue Augmentin and Doxycycline from her operative culture that showed Proteus mirabilis and a preop culture that showed Proteus mirabilis, MRSE, and Anaerobic cocci. Followup one week.
== END 2019-01-22 23:59 ==
LOC: WC 13:45
PROVIDERS: Family Provider Family Medicine; PCP Family Medicine; Referring Provider Internal Medicine; Visit Provider Internal Medicine
DX: L98.492 Non-pressure chronic ulcer of skin of other sites with fat layer exposed (principal); Z79.01 Long term (current) use of anticoagulants; Z86.718 Personal history of other venous thrombosis and embolism; E65 Localized adiposity; L30.4 Erythema intertrigo
CPT/HCPCS: 11042; 11045; 99213; G0463

== ENCOUNTER 2019-02-09 10:45 | Outpatient (RCR) | payer MEDICARE, OTHER, SELFPAY ==
[2019-01-23 00:53] VITALS: BP 102/58; PULSE 98; RESP 24; TEMP 37.3; BMI 31.3
[2019-01-26 09:52] VITALS: BP 96/64; PULSE 102; RESP 16; TEMP 37.7; BMI 31.3
--- NOTE | 2019-01-26 13:40 | PN.PCM_ITS ---
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 History of Wound: Surgery 01/05/19 - 1. Surgical preparation lower anterior abdominal wall with excisional debridement skin, subcutaneous tissue, and fascia for necrotizing soft tissue infection abscess ulcers (588 cm2). 2. Abdominal panniculectomy. Wound care - Wound VAC stopped due to the increased pain and stress. Daily dressing changes with 1/4 strength Dakin's solution moistened gauze covered by dry dressing. Operative culture - Proteus mirabilis. Preop culture showed Proteus mirabilis, MRSE, and Anaerobic cocci. She is currently on Augmentin an Doxycycline. Prealbumin from was 15.2. Encourage nutritional supplementation with protein to help the healing process. She states that she is having issues eating her meals and drinking 3 protein shakes per day, she gets too full and has even vomited because she is so full. Instructed her to try to eat food first then drink 2 protein shakes per day after a meal. She has been to the ED a couple of times last week because of issues with the VAC and fever. There has been some questions about the VAC not working at the [facility] which can lead to a fever and wound infection. Progress of Wound: Stable. Post op surgery from last Saturday01/05/19 - Physical Exam Vital Signs Temp Pulse Resp BP 99.8 F H 102 H 16 96/64 01/26/19 09:52 01/26/19 09:52 01/26/19 09:52 01/26/19 09:52 General: Alert, Oriented x3, Cooperative HEENT: Atraumatic Oral: Moist Mucosa Lungs: Normal air movement Cardiovascular: Regular rate Abdomen: Soft, Non Tender Skin: Ulcer/ Wound - lower abdomen pannus ulcer Wound Measurements and Assessment - Nurse 1 - General Ulcer Measurement Start: 01/26/19 09:52 Freq: Status: Active Protocol: Activity Type Activity Date Activity User E-Sign Co-Sign Detail Recorded Client Recorded Date Recorded By Document 01/26/19 09:52 [facility] [id number] 01/26/19 10:02 [facility] 01/26/19 09:52 Wound Center Nurse 1 [Ulcer Assessment] #5- LOWER ABDOMEN -Combined with other wound No -Current Size (cm) - Length 5 -Current Size (cm) - Width 50 -Current Size (cm) - Depth 5.8 -Total Square Cm 250 -Photo Taken No -Epithelialization Small 1-33% -Tunneling No -Undermining/Tunneling No -Circular Undermining No -Exudate Amt Large -Exudate Type Serosanguineous -Wound Margin Distinct, Outline Attached -Granulation Amt Large (67-100%) -Granulation Quality Red -Slough/Fibrin Yes -Necrosis Amt Small (1-33%) -Necrotic Tissue Type Adherent Slough -Texture (Shanita-wound Skin Appearance) Assessed -Moisture (Shanita-wound Skin Appearance Assessed ) -Color (Shanita-wound Skin Appearance) Assessed -Temperature (Shanita-wound Skin No Abnormality Appearance) (Pt Warm) -Tenderness on Palpation (Shanita-wound No Skin Appearance) -Ulcer Cleansing soap and water -Foul Odor after Cleansing No -Anesthetic Used 4% Lidocaine Solution - Nurse 2 - General Ulcer CM Notes Start: 01/26/19 09:52 Freq: Status: Active Protocol: Activity Type Activity Date Activity User E-Sign Co-Sign Detail Recorded Client Recorded Date Recorded By Document 01/26/19 11:22 [id number] 01/26/19 11:23 01/26/19 11:22 Wound Center Nurse 2 [Procedure/Treatment] -Time 11:22 -Correct Patient Yes -Correct Side, Site, Position Yes -Correct Procedure Yes -Procedure Performed Yes -Type of Procedure Debridement -Clinical Debridement Subcutaneous -Post Debridement Size (cm) - Length 7 -Post Debridement Size (cm) - Width 51 -Post Debridement Size (cm) - Depth 6.0 -Total Square Cm 357 -Wound/Ulcer Outcome Not Healed -Ulcer Cleansing Rinsed/ Irrigated with Saline -Foul Odor after Cleansing No -Bioengineered Tissue No -Bleeding Controlled with Pressure -Offloading No -Treatment Response Procedure Tolerated Well [See Physician Procedure note for Specifics] Pain Scale: 0-10 Numeric [Pain] -Is Patient Pain Free? Yes Musculoskeletal: No Tenderness to Palpation of Joints or Extremities Neurological: Neuro grossly intact Psych/Mental Status: Normal Affect, Appropriate Debridement Note Post-Debridement Measurements/Treatment WC - Nurse 2 - General Ulcer CM Notes Start: 01/26/19 09:52 Freq: Status: Active Protocol: Activity Type Activity Date Activity User E-Sign Co-Sign Detail Recorded Client Recorded Date Recorded By Document 01/26/19 11:22 [id number] 01/26/19 11:23 ROMI 01/26/19 11:22 Wound Center Nurse 2 #5- LOWER ABDOMEN -Time 11:22 -Correct Patient Yes -Correct Side, Site, Position Yes -Correct Procedure Yes -Procedure Performed Yes -Type of Procedure Debridement -Clinical Debridement Subcutaneous -Post Debridement Size (cm) - Length 7 -Post Debridement Size (cm) - Width 51 -Post Debridement Size (cm) - Depth 6.0 -Total Square Cm 357 -Wound/Ulcer Outcome Not Healed -Ulcer Cleansing Rinsed/ Irrigated with Saline -Foul Odor after Cleansing No -Bioengineered Tissue No -Bleeding Controlled with Pressure -Offloading No -Treatment Response Procedure Tolerated Well Pain Scale: 0-10 Numeric Is Patient Pain Free? 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 Nonhealing infected multiple abdominal ulceration abscesses. 2. 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 3. Abdominal panniculus. 4. Abdominal wall skin crease intertrigo. 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 6. s/p surgical preparation lower anterior abdominal wall with excisional debridement skin, subcutaneous tissue, and fascia for necrotizing soft tissue infection abscess ulcers (588 cm2) and abdominal panniculectomy. Plan: There is no evidence of infection in the abdominal wall wound. Will c kathleenue to place the VAC on hold and do Dakin's dressing changes twice a day. After a few more weeks of healing, will consider closing the wound with a complex secondary wound closure. This would be done on an outpatient basis under general anesthesia. Will have drains for several days and will wear an abdominal binder. Patient is interested in proceeding with wound closure. Prealbumin from 01/06/19 was 15.2. Encourage nutritional supplementation with protein to help the healing process. Patient states that she is having a difficult time eating her meals because she needs to drink 3 protein shakes per day. She has been so full that she even has vomited after eating. Instructed her to eat her meals before drinking the protein shakes and will decrease the protein shakes to 2 per day. Did have a discussion of making good food choices that are high in protein. Continue Augmentin and Doxycycline from her operative culture that showed Proteus mirabilis and a preop culture that showed Proteus mirabilis, MRSE, and Anaerobic cocci. Followup one week. Code Visit [id number]: [id number] Leyda subq tissue 20 sq cm/< Add On Codes: 46797 Leyda subq tissue add-on - x 117
[2019-02-02 10:58] VITALS: BP 141/72; PULSE 102; RESP 22; TEMP 37; BMI 31.3
--- NOTE | 2019-02-02 14:59 | PCM.WC.PN ---
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 History of Wound: Surgery 01/05/19 - 1. Surgical preparation lower anterior abdominal wall with excisional debridement skin, subcutaneous tissue, and fascia for necrotizing soft tissue infection abscess ulcers (588 cm2). 2. Abdominal panniculectomy. Wound care - Wound VAC stopped due to the increased pain and stress. Daily dressing changes with 1/4 strength Dakin's solution moistened gauze covered by dry dressing. Operative culture - Proteus mirabilis. Preop culture showed Proteus mirabilis, MRSE, and Anaerobic cocci. She is currently on Augmentin an Doxycycline. Prealbumin from was 15.2. Encourage nutritional supplementation with protein to help the healing process. She states that she is having issues eating her meals and drinking 3 protein shakes per day, she gets too full and has even vomited because she is so full. Instructed her to try to eat food first then drink 2 protein shakes per day after a meal. She has been to the ED a couple of times last week because of issues with the VAC and fever. There has been some questions about the VAC not working at the [facility] which can lead to a fever and wound infection. Progress of Wound: Post op surgery from 01/05/19. Improved. - Physical Exam Vital Signs Temp Pulse Resp BP 98.6 F 102 H 22 H 141/72 H 02/02/19 10:58 02/02/19 10:58 02/02/19 10:58 02/02/19 10:58 General: Alert, Cooperative HEENT: Atraumatic Oral: Moist Mucosa Lungs: Normal air movement Cardiovascular: Regular rate Extremities: Capillary Refill Less than 3 Seconds Skin: Ulcer/ Wound - Lower abdominal ulcer. New skin abrasion on left buttock, skin sloughing only. Wound Measurements and Assessment WC - Nurse 1 - General Ulcer Measurement Start: 01/26/19 09:52 Freq: Status: Active Protocol: Activity Type Activity Date Activity User E-Sign Co-Sign Detail Recorded Client Recorded Date Recorded By Document 02/02/19 10:58 [id number] 02/02/19 11:09 DL 02/02/19 10:58 Wound Center Nurse 1 [Ulcer Assessment] #5- LOWER ABDOMEN -Current Size (cm) - Length 7.5 -Current Size (cm) - Width 44.5 -Current Size (cm) - Depth 5.2 -Total Square Cm 333.75 -Photo Taken No -Exudate Amt Large -Exudate Type Yellow/Green -Wound Margin Distinct, Outline Attached -Granulation Amt Large (67-100%) -Granulation Quality Red -Necrosis Amt Small (1-33%) -Necrotic Tissue Type Adherent Slough -Structure Exposed N/A -Texture (Shanita-wound Skin Appearance) Scarring -Moisture (Shanita-wound Skin Appearance No Abnormality ) -Color (Shanita-wound Skin Appearance) No Abnormality -Temperature (Shanita-wound Skin No Abnormality Appearance) (Pt Warm) -Tenderness on Palpation (Shanita-wound No Skin Appearance) -Ulcer Cleansing Wound Cleanser -Foul Odor after Cleansing No -Anesthetic Used 4% Lidocaine Solution WC - Nurse 2 - General Ulcer CM Notes Start: 01/26/19 09:52 Freq: Status: Active Protocol: Activity Type Activity Date Activity User E-Sign Co-Sign Detail Recorded Client Recorded Date Recorded By Document 02/02/19 11:21 DL [id number] 02/02/19 11:25 DL 02/02/19 11:21 Wound Center Nurse 2 [Procedure/Treatment] -Time 11:23 -Correct Patient Yes -Correct Side, Site, Position Yes -Correct Procedure Yes -Procedure Performed Yes -Type of Procedure Debridement -Clinical Debridement Subcutaneous -Post Debridement Size (cm) - Length 6.0 -Post Debridement Size (cm) - Width 48.0 -Post Debridement Size (cm) - Depth 4.4 -Total Square Cm 288.00 -Wound/Ulcer Outcome Not Healed -Ulcer Cleansing Rinsed/ Irrigated with Saline -Foul Odor after Cleansing No -Bioengineered Tissue No -Bleeding Controlled with Pressure -Offloading No -Treatment Response Procedure Tolerated Well [See Physician Procedure note for Specifics] Pain Scale: 0-10 Numeric [Pain] -Is Patient Pain Free? Yes Musculoskeletal: No Tenderness to Palpation of Joints or Extremities Neurological: Neuro grossly intact Psych/Mental Status: Normal Affect, Appropriate Debridement Note Post-Debridement Measurements/Treatment WC - Nurse 2 - General Ulcer CM Notes Start: 01/26/19 09:52 Freq: Status: Active Protocol: Activity Type Activity Date Activity User E-Sign Co-Sign Detail Recorded Client Recorded Date Recorded By Document 01/26/19 11:22 JF [id number] 01/26/19 11:23 JF Document 02/02/19 11:21 DL [id number] 02/02/19 11:25 DL 01/26/19 02/02/19 11:22 11:21 Wound Center Nurse 2 #5- LOWER ABDOMEN -Time 11:22 11:23 -Correct Patient Yes Yes -Correct Side, Site, Position Yes Yes -Correct Procedure Yes Yes -Procedure Performed Yes Yes -Type of Procedure Debridement Debridement -Clinical Debridement Subcutaneous Subcutaneous -Post Debridement Size (cm) - Length 7 6.0 -Post Debridement Size (cm) - Width 51 48.0 -Post Debridement Size (cm) - Depth 6.0 4.4 -Total Square Cm 357 288.00 -Wound/Ulcer Outcome Not Healed Not Healed -Ulcer Cleansing Rinsed/ Rinsed/ Irrigated with Irrigated with Saline Saline -Foul Odor after Cleansing No No -Bioengineered Tissue No No -Bleeding Controlled with Pressure Pressure -Offloading No No -Treatment Response Procedure Procedure Tolerated Well Tolerated Well Pain Scale: 0-10 Numeric Is Patient Pain Free? Yes Yes Wound debrided: lower abdomen Laterality: Not Applicable Type of Debridement: Excisional debridement Anesthesia Used: 5% Lidocaine Gel Depth: Down to and including healthy tissue, in the subcutaneous layer Percentage of wound debrided: 100 Instrument Used: 7mm curette Tissue Removed: subcutaneous tissue and slough Severity: Fat Layer Exposed Amount of bleeding with debridement: Mild Bleeding Controlled with: Pressure, Compression and gauze Patient tolerated procedure well Assessment/Plan Assessment: 1. Nonhealing infected multiple abdominal ulceration abscesses. 2. 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 3. Abdominal panniculus. 4. Abdominal wall skin crease intertrigo. 5. Skin tear of left buttock. 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 6. s/p surgical preparation lower anterior abdominal wall with excisional debridement skin, subcutaneous tissue, and fascia for necrotizing soft tissue infection abscess ulcers (588 cm2) and abdominal panniculectomy. Plan: There is no evidence of infection in the abdominal wall wound. Will discontinue the VAC and continue to do Dakin's 1/4 strength solution dressing changes twice a day. After a few more weeks of healing, will consider closing the wound with a complex secondary wound closure. This would be done on an outpatient basis under general anesthesia. Will have drains for several days and will wear an abdominal binder. Patient is interested in proceeding with wound closure. Patient has a skin tear/abrasion on left buttock. It is very supperficial. Will place Mepilex boarder dressing on the area to protect it from shearing force. Encouraged to reposition frequently (every hour) to prevent further injury. Prealbumin from 01/06/19 was 15.2. Encourage nutritional supplementation with protein to help the healing process. Patient states that she is having a difficult time eating her meals because she needs to drink 3 protein shakes per day. She has been so full that she even has vomited after eating. Instructed her to eat her meals before drinking the protein shakes and will decrease the protein shakes to 2 per day. Did have a discussion of making good food choices that are high in protein. Continue Augmentin and Doxycycline from her operative culture that showed Proteus mirabilis and a preop culture that showed Proteus mirabilis, MRSE, and Anaerobic cocci. Followup one week. Code Visit 111xxx-113xx: 56356 Leyda subq tissue 20 sq cm/< Add On Codes: 19012 Leyda subq tissue add-on - x14
[2019-02-09 10:44] VITALS: BP 114/58; PULSE 95; RESP 16; TEMP 37; BMI 31.3
--- NOTE | 2019-02-09 23:14 | PN.PCM_ITS ---
Type of Wound Date of Service: 02/09/19 Chief Complaint: Nonhealing infected ulcerations lower anterior abdominal wall. History of Wound: Surgery 01/05/19 - 1. Surgical preparation lower anterior abdominal wall with excisional debridement skin, subcutaneous tissue, and fascia for necrotizing soft tissue infection abscess ulcers (588 cm2). 2. Abdominal panniculectomy. Wound care - Dakin's. Operative culture - Proteus mirabilis. Preop culture showed Proteus mirabilis, MRSE, and Anaerobic cocci. She was placed on Augmentin an Doxycycline and has finished them. Prealbumin from was 15.2. Encourage nutritional supplementation with protein to help the healing process. Today she denies fever. Her appetite is ok. Progress of Wound: Improved. - Physical Exam Vital Signs Temp Pulse Resp BP 98.6 F 95 16 114/58 L 02/09/19 10:44 02/09/19 10:44 02/09/19 10:44 02/09/19 10:44 Wound Measurements and Assessment WC - Nurse 1 - General Ulcer Measurement Start: 01/26/19 09:52 Freq: Status: Active Protocol: Activity Type Activity Date Activity User E-Sign Co-Sign Detail Recorded Client Recorded Date Recorded By Document 02/09/19 10:44 MW [id number] 02/09/19 10:46 MW 02/09/19 10:44 Wound Center Nurse 1 [Ulcer Assessment] #5- LOWER ABDOMEN -Combined with other wound No -Current Size (cm) - Length 4.5 -Current Size (cm) - Width 46.0 -Current Size (cm) - Depth 4.5 -Total Square Cm 207.00 -Photo Taken No -Epithelialization Small 1-33% -Tunneling No -Undermining/Tunneling No -Circular Undermining No -Exudate Amt Large -Exudate Type Serosanguineous -Wound Margin Distinct, Outline Attached -Granulation Amt Large (67-100%) -Granulation Quality Red -Slough/Fibrin Yes -Necrosis Amt Small (1-33%) -Necrotic Tissue Type Adherent Slough -Structure Exposed N/A -Texture (Shanita-wound Skin Appearance) Assessed, Scarring -Moisture (Shanita-wound Skin Appearance No Abnormality, ) Assessed -Color (Shanita-wound Skin Appearance) No Abnormality, Assessed -Temperature (Shanita-wound Skin No Abnormality Appearance) (Pt Warm) -Ulcer Cleansing soap and water -Foul Odor after Cleansing No -Anesthetic Used 4% Lidocaine Solution [Edema Assessment] -Lower Limb Edema Present No WC - Nurse 2 - General Ulcer CM Notes Start: 01/26/19 09:52 Freq: Status: Active Protocol: Activity Type Activity Date Activity User E-Sign Co-Sign Detail Recorded Client Recorded Date Recorded By Document 02/09/19 11:15 [id number] 02/09/19 11:22 02/09/19 11:15 Wound Center Nurse 2 [Procedure/Treatment] #5- LOWER ABDOMEN -Time 11:21 -Correct Patient Yes -Correct Side, Site, Position Yes -Correct Procedure Yes -Procedure Performed Yes -Type of Procedure Debridement -Clinical Debridement Subcutaneous -Post Debridement Size (cm) - Length 5 -Post Debridement Size (cm) - Width 46.5 -Post Debridement Size (cm) - Depth 5 -Total Square Cm 232.5 -Wound/Ulcer Outcome Not Healed -Ulcer Cleansing Rinsed/ Irrigated with Saline -Foul Odor after Cleansing No -Bioengineered Tissue No -Bleeding Controlled with Pressure -Offloading No -Treatment Response Procedure Tolerated Well [See Physician Procedure note for Specifics] Pain Scale: 0-10 Numeric [Pain] -Is Patient Pain Free? Yes Debridement Note Post-Debridement Measurements/Treatment WC - Nurse 2 - General Ulcer CM Notes Start: 01/26/19 09:52 Freq: Status: Active Protocol: Activity Type Activity Date Activity User E-Sign Co-Sign Detail Recorded Client Recorded Date Recorded By Document 01/26/19 11:22 [id number] 01/26/19 11:23 Document 02/02/19 11:21 DL [id number] 02/02/19 11:25 DL Document 02/09/19 11:15 JF [id number] 02/09/19 11:22 01/26/19 02/02/19 02/09/19 11:22 11:21 11:15 Wound Center Nurse 2 #5- LOWER ABDOMEN -Time 11:22 11:23 11:21 -Correct Patient Yes Yes Yes -Correct Side, Site, Position Yes Yes Yes -Correct Procedure Yes Yes Yes -Procedure Performed Yes Yes Yes -Type of Procedure Debridement Debridement Debridement -Clinical Debridement Subcutaneous Subcutaneous Subcutaneous -Post Debridement Size (cm) - Length 7 6.0 5 -Post Debridement Size (cm) - Width 51 48.0 46.5 -Post Debridement Size (cm) - Depth 6.0 4.4 5 -Total Square Cm 357 288.00 232.5 -Wound/Ulcer Outcome Not Healed Not Healed Not Healed -Ulcer Cleansing Rinsed/ Rinsed/ Rinsed/ Irrigated with Irrigated with Irrigated with Saline Saline Saline -Foul Odor after Cleansing No No No -Bioengineered Tissue No No No -Bleeding Controlled with Pressure Pressure Pressure -Offloading No No No -Treatment Response Procedure Procedure Procedure Tolerated Well Tolerated Well Tolerated Well Pain Scale: 0-10 Numeric Is Patient Pain Free? Yes Yes Yes Assessment/Plan Assessment: 1. Nonhealing infected multiple abdominal ulceration abscesses. 2. 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 3. Abdominal panniculus. 4. Abdominal wall skin crease intertrigo. 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 6. s/p surgical preparation lower anterior abdominal wall with excisional debridement skin, subcutaneous tissue, and fascia for necrotizing soft tissue infection abscess ulcers (588 cm2) and abdominal panniculectomy. Plan: Continue Dakin's dressing changes twice a day. The wound continues to improve with good granulation tissue. After a few more weeks of healing, will consider closing the wound with a complex secondary wound closure. This would be done on an outpatient basis under general anesthesia. Will have drains for several days and will wear an abdominal binder. Patient is interested in proceeding with wound closure. Prealbumin from 01/06/19 was 15.2. Encourage nutritional supplementation with protein to help the healing process. She has finished the Augmentin and Doxycycline from her operative culture that showed Proteus mirabilis and a preop culture that showed Proteus mirabilis, MRSE, and Anaerobic cocci. Followup 2 weeks. Her Hgb today was 8.1. Will need PRBC jet or to her operative debridement and complex secondary wound closure surgery. Patient was informed of the risks and complications of the procedure including alternatives to surgery. These were discussed with her personally. She voices understanding and wishes to proceed. Code Visit Wound Center Charges CPT - 48153 ICD-10 -V58.49, L98.492, L02.211, M79.89, E65, L30.4, Z79.01
== END 2019-02-21 23:59 ==
LOC: WC 10:45
PROVIDERS: Family Provider Family Medicine; PCP Family Medicine; Referring Provider Internal Medicine; Visit Provider Surgery
DX: L98.492 Non-pressure chronic ulcer of skin of other sites with fat layer exposed (principal); L02.211 Cutaneous abscess of abdominal wall; E65 Localized adiposity; L30.4 Erythema intertrigo
CPT/HCPCS: 11042; 11045

== ENCOUNTER 2019-02-25 13:19 | Inpatient (IN) | payer MEDICARE, OTHER, SELFPAY ==
[2019-02-25] VITALS (7 sets, daily range): BP systolic 103–137; BP diastolic 49–89; PULSE 84–101; RESP 12–18; TEMP 36.1–37.2; O2SAT 92–100; BMI 27.8
--- NOTE | 2019-02-25 13:18 | CASEMGMT ---
LW/POA in the summary tab of the e-chart, Micky Burden is listed as pt's healthcare POA. NAHOMI Maguire
[2019-02-25 15:26] LABS: Hematocrit 30.1 % (37-47); Hemoglobin 9.5 g/dL (12.0-15.0); Mean Corp Hgb Conc 31.6 g/dL (32-36); Mean Corpuscular Hgb 30.5 pg (27.0-32.0); Mean Corpuscular Volume 96.8 fL (81-99); Mean Platelet Vol. 9.3 fl (6.2-12.0); Platelet Count 289 K/mm3 (150-450); RBC Distribution Width CV 15.3 % (11.6-14.6); RBC Distribution Width SD 53.7 fl (35.1-43.9); Red Blood Count 3.11 M/mm3 (4.2-5.4); White Blood Count 9.1 K/mm3 (4.4-11.0)
[2019-02-25 15:33] LABS: Erythrocyte Sedimentation Rate 29 mm/hr (0-30)
[2019-02-25] MEDS: Iron Polysaccharide Complex 150 MG CAPSULE PO (15:38)
[2019-02-25] MEDS: Vancomycin IV 1,000 MG/200 ML BAG 200 MG IV (16:20)
[2019-02-25] MEDS: Multivitamins,Ther W-Minerals Tablet 1 TABLET PO (16:21)
[2019-02-25] MEDS: 0.9% Saline Lock 10 ML Syringe IV ×2 (16:21→17:56)
[2019-02-25 16:28] LABS: ALB/GLOB Ratio 0.6 RATIO (0.9-2.4); AST(SGOT) 37 U/L (15-37); Alanine Aminotransfer ALT/SGPT 23 U/L (13-56); Albumin, Serum 2.2 g/dL (3.2-5.0); Alkaline Phosphatase 228 U/L (45-117); Anion Gap 2 (5-15); BUN 14 mg/dL (7-18); BUN/Creat Ratio 18.1 RATIO (10-20); Calcium,Total 8.8 mg/dL (8.5-10.1); Chloride 104 mmol/L (98-107); Creatinine, Serum 0.78 mg/dL (0.55-1.02); EST Glomerular Filtration Rate 76 mL/min (>60); Est Glom Filt Rate - Afr Amer 92 mL/min (>60); Estimated Creatinine Clearance 32.23 ml/min; Globulin 3.9 g/dL (2.2-4.2); Glucose 85 mg/dL (74-106); Potassium 4.3 mmol/L (3.5-5.1); Prealbumin 10.3 mg/dL (20.0-40.0); Protein, Total 6.1 g/dL (6.4-8.2); Sodium Level 138 mmol/L (136-145)
--- NOTE | 2019-02-25 18:31 | PCM.HP.BLA ---
History and Physical Date of Admission: 02/25/19 HISTORY OF PRESENT ILLNESS 78-year-old woman presents with nonhealing infection abdominal ulcer that required surgery on 01/05/19 where she underwent surgical preparation lower anterior abdominal wall with excisional debridement skin, subcutaneous tissue, and fascia for necrotizing soft tissue infection abscess ulcers (588 cm2) and abdominal panniculectomy. Initial wound care was with the VAC. There were issues with the VAC and her wound care was changed to Dakin's dressing changes. Her wound has improved since the Dakin's dressing changes were started. Her operative cultures showed Proteus mirabilis. Preoperative cultures showed Proteus mirabilis, MRSE, Staphylococcus simulans (Methicillin resistant), Pseudomonas aeroginosa, and Anaerobic cocci. She was treated with Levaquin and then Augmentin and Doxycycline and has finished them. It was recommended to the patient to return to the OR for further operative debridement and complex secondary wound closure. She was in agreement. However, she had a preop Hgb of 7.7. She comes in today to begin IV antibiotics in preparation for her surgery tomorrow and to receive PRBC in preparation for her surgery tomorrow. Will start with Vancomycin and Zosyn. PAST MEDICAL HISTORY Necrotizing soft tissue infection (Chronic) Skin ulcer of abdominal wall with fat layer exposed (Chronic) Pannus, abdominal (Chronic) Intertriginous dermatitis associated with moisture (Chronic) Skin ulcer (Chronic) Generalized weakness (Chronic) Osteoporosis (Chronic) Arthritis (Chronic) Chronic pain (Chronic) Hypertension (Chronic) Hypothyroidism (Chronic) Sleep apnea (Chronic) History of non-Hodgkin's lymphoma (Chronic) Chronic ITP (idiopathic thrombocytopenia) (Chronic) PAST SURGICAL HISTORY Surgical preparation lower anterior abdominal wall with excisional debridement skin, subcutaneous tissue, and fascia for necrotizing soft tissue infection abscess ulcers (588 cm2) and abdominal panniculectomy - 01/05/19 MEDICATIONS Artificial tears Tylenol Tessalon Perle Bisacodyl Zyrtec Colace Iron Ensure Krill Oil Levothyroxine Lisinopril Milk of Magnesia MVI Oxycodone Protonix Prednisolone eye drops Phenergan Senna-S Noé-128 Detrol LA Vitamin B Complex Vitamin E ALLERGIES Gentamicin FAMILY HISTORY Father - Heart disease, Cancer SOCIAL HISTORY Smoking Status: Never smoker Tobacco Use: Non-smoker Alcohol: None Drugs: None REVIEW OF SYSTEMS Constitutional: Reports: Fatigue. Denies: Fever, Weight Change Eyes: Denies: Pain HEENT: Denies: Nasal Congestion, Sore Throat Cardiovascular: Denies: Chest Pain Respiratory: Denies: Cough, Shortness of Breath Gastrointestinal: Denies: Constipation, Diarrhea, Nausea, Vomiting Genitourinary: Denies: Frequency, Hematuria Musculoskeletal: Reports: Joint Pain. Denies: Back Pain, Hand Pain, Leg Pain, Neck Pain Skin: Reports: Wounds - has multiple nonhealing infection abdominal wall ulcerations. Neurological: Denies: Headaches Psychiatric: Denies: Depression Endocrine: Denies: Polydipsia, Polyuria Hematologic/ Lymphatic: Reports: Easy Bruising - on Coumadin., - - has ITP and NonHodgkin's Lymphoma PHYSICAL EXAMINATION General: Alert, Oriented x3 HEENT: PERRLA, EOMI Oral: Moist Mucosa Neck: Supple Lungs: Clear to auscultation Cardiovascular: Regular rate, Regular Rhythm Abdomen: Soft, Non-Distended, Tender - in the areas of the ulceration., - - has large abdominal panniculus with associated abdominal wall skin crease intertrigo. Extremities: No clubbing, No cyanosis, Edema - mild edema in lower extremities., Peripheral Pulses Normal Skin: Ulcer/ Wound - has nonhealing ulcer lower anterior abdominal wall. Measures 46 x 5 cm. - - has abdominal wall skin crease intertrigo. Lymphatic: - - no inguinal adenopathy. Neurological: Cranial nerves II-XII grossly intact Psych/Mental Status: Normal Affect, Appropriate ASSESSMENT 1. Nonhealing infected ulcer lower anterior abdominal wall. 2. 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 3. Abdominal panniculus. 4. Abdominal wall skin crease intertrigo. 5. intermediate use of anticoagulation. 6. Anemia of chronic disease, acute on chronic. 7. s/p surgical preparation lower anterior abdominal wall with excisional debridement skin, subcutaneous tissue, and fascia for necrotizing soft tissue infection abscess ulcers (588 cm2) and abdominal panniculectomy. PLAN Continue Dakin's dressing changes twice a day. With improvement in the wound, recommend going back to surgery for further operative debridement and complex secondary wound closure. With her multiple organisms from her previous infection, she is being admitted ahead of time for IV antibiotic therapy. Will start with Vancomycin and Zosyn. She had a Hgb result a week ago that showed 7.7. That will need to improve and will get PRBC today before her surgery. Surgery will be done under general anesthesia. Patient was informed of the risks and complications of the procedure including alternatives to surgery. These were discussed with her personally. She voices understanding and wishes to proceed.
--- NOTE | 2019-02-25 19:42 | PCM.RX.CS ---
Consult Pharmacy has been consulted to manage selected antiobiotic: Vancomycin Type of Consult: New start Suspected Infection: Skin/Soft tissue Prior Doses of Antibiotics Received/Current Regimen: INITIAL WEIGHT BASED DOSE OF VANCOMYCIN IV 1000MG X 1 ON 02/25 @ 1620 Labs: Sodium 138 mmol/L (136-145) 02/25/19 15:05 Potassium 4.3 mmol/L (3.5-5.1) 02/25/19 15:05 Chloride 104 mmol/L (98-107) 02/25/19 15:05 Carbon Dioxide 32.0 mmol/L (21.0-32.0) 02/25/19 15:05 Anion Gap 2 (5-15) L 02/25/19 15:05 BUN 14 mg/dL (7-18) 02/25/19 15:05 Creatinine 0.78 mg/dL (0.55-1.02) 02/25/19 15:05 Est GFR (MDRD) Af Amer 92 mL/min (>60) 02/25/19 15:05 Est GFR (MDRD) Non-Af 76 mL/min (>60) 02/25/19 15:05 BUN/Creatinine Ratio 18.1 RATIO (10-20) 02/25/19 15:05 Glucose 85 mg/dL (74-106) 02/25/19 15:05 Weight used for dosin.6 kg Estimated Creatinine Clearance: 48.1 Goal Trough: 10-15 mcg/mL Pharmacy Plan for Drug Dosin. Will start vancomycin IV 750mg Q24H starting 02/26 @ 1600 based on pt's weight and CrCl 2. Will schedule trough prior to 3rd dose Pharmacy Service will continue to monitor and adjust dosing as required. Labs to be done on [date and time ordered]: 02/27/19 @ 1530
[2019-02-25] MEDS: oxyCODONE 5 MG Tablet 10 MG PO (20:00)
[2019-02-25] MEDS: Pantoprazole Sodium 40 MG Tablet PO (21:19)
[2019-02-25] MEDS: Docusate Sodium 100 MG Capsule PO (21:19)
[2019-02-25] MEDS: DAKIN'S SOL HALF STRENGTH (=0.25%) 1 APPLIC TOPICAL (21:20)
[2019-02-26] VITALS (12 sets, daily range): BP systolic 97–128; BP diastolic 48–81; PULSE 78–101; RESP 16–18; TEMP 36.4–37.7; O2SAT 93–100; BMI 27.8
[2019-02-26] MEDS: Levothyroxine 100 MCG Tablet PO (05:05)
[2019-02-26] MEDS: 0.9% Normal Saline 1,000 ML 75 ML IV ×2 (07:20→12:20)
--- NOTE | 2019-02-26 07:30 | SOF_PTH ---
PATIENT: JEAN PAUL LICEA LOC: [facility] U#:[id number] AGE/SX: 78/F ROOM: [facility] RE02/25/[address]: Dr. Félix Tafoya MD : [id number] BED: 1 DIS: 02/28/2019 SPEC #: [id number] RECD: 02/26/19 11:18 STATUS: DARCY REWillis #: [id number] EMETERIO: 02/26/19 07:[address]: Félix Tafoya DEPT: SURGICAL PATHOLOGY RECD BY: Hector Johnson ENTERED: 02/26/19 13:23 SP TYPE: SOFT TISS OTHR DR: Dr. Chung Marcos, DO Tissues: Abdomen, NOS Procedures: Surgery Specimen Level IV HEADER OPERATION: Surgical preparation abdominal wall, excisional debridement PRE-OP DIAGNOSIS: Nonhealing infected multiple abdominal ulceration abscesses; necrotizing soft tissue infection lower anterior abdominal wall; abdominal panniculus TISSUE SUBMITTED: Abdominal tissue MICROSCOPIC DIAGNOSIS Skin and soft tissue of abdomen, excision: Ulceration with associated acute and chronic inflammation and granulation. Focal fat necrosis and benign histiocytic reparative change. One out of one lymph node with no pathologic change. AM:albert 02/27/19 MICROSCOPIC DESCRIPTION Slides are reviewed. GROSS DESCRIPTION Received in fixative is one container labeled with the patient's name and designated abdominal tissue. The specimen consists of two irregular pieces of skin with underlying tissue measuring 23 x 7.5 cm and up to 2 cm in thickness and 10 x 3.5 cm and up to 2 cm in thickness. Also present in the container is a detached piece of adipose tissue measuring 2 x 1.5 x 0.5 cm. The skin surface of the two large pieces shows an extensive area of ulceration. No mass lesion is identified. Plate Printer sections are submitted in three cassettes. / SJ:albert 02/26/19 TC:2 CPT: 36238
--- NOTE | 2019-02-26 09:23 | OP.PCM_ITS ---
Report of Operation Date of Procedure: 02/26/19 Pre-Operative Diagnosis: 1. Nonhealing infected ulcer lower anterior abdominal wall. 2. 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 3. Abdominal panniculus. 4. Abdominal wall skin crease intertrigo. 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 6. s/p surgical preparation lower anterior abdominal wall with excisional debridement skin, subcutaneous tissue, and fascia for necrotizing soft tissue infection abscess ulcers (588 cm2) and abdominal panni culectomy. Post-Operative Diagnosis: Same. Surgery/Procedure Performed:: Surgical preparation lower anterior abdominal wall with excisional debridement nonhealing infected ulcer (240 cm2) and 48 cm complex secondary wound closure. Description of Surgical Findings:: 78-year-old woman presents with nonhealing infection abdominal ulcer that required surgery on 01/05/19 where she underwent surgical preparation lower anterior abdominal wall with excisional debridement skin, subcutaneous tissue, and fascia for necrotizing soft tissue infection abscess ulcers (588 cm2) and abdominal panniculectomy. Initial wound care was with the VAC. There were issues with the VAC and her wound care was changed to Dakin's dressing changes. Her wound has improved since the Dakin's dressing changes were started. Her operative cultures showed Proteus mirabilis. Preoperative cultures showed Proteus mirabilis, MRSE, Staphylococcus simulans (Methicillin resistant), Pseudomonas aeroginosa, and Anaerobic cocci. She was treated with Levaquin and then Augmentin and Doxycycline and has finished them. It was recommended to the patient to return to the OR for further operative debridement and complex secondary wound closure. She was in agreement. However, she had a preop Hgb of 7.7. She comes in today to begin IV antibiotics in preparation for her surgery tomorrow and to receive PRBC in preparation for her surgery tomorrow. Will start with Vancomycin and Zosyn. Patient was informed of the risks and complications of the procedure including alternatives to surgery. These were discussed with the patient personally. Patient voices understanding and wishes to proceed. Length of abdominal wall incision - 48 cm. I used Rupali absorbable hemostat, (I used 3 vials). Reference Number - [id number]. Lot Number - [id number]. Expiration - November 20, 2023. pm technician: Nelly Jones. Type of Anesthesia:: General Specimen's removed: Infected abdominal wall ulcer to Pathology and Microbiology. Drains: Julius x2. Estimated Blood Loss (mL): 50 ml. Description of Procedure: Patient was taken to OR in supine position and was placed under general anesthesia. The abdominal wall was prepped and draped in the usual fashion. I then placed Ioban draping over the abdomen as well. SCD's were placed for DVT prophylaxis. Perioperative antibiotics were given intravenously. Using xylocaine with epinephrine, the abdominal wall ulcer was infiltrated. After waiting 5 minutes for the anesthetic to take effect, incision was made in the lower anterior abdominal wall area down through the granulation scar tissue down to the abdominal wall fascia. The size of the wound for wound closure was 48 x5 cm or 240 cm2. Hemostasis was obtained with electrocautery. The wound was irrigated with Irrisept 0.05% Chlorhexidine which was followed by saline irrigation. I placed 2 size 15 Julius drains through separate stab incisions laterally in the flank areas and secured to the skin with 3-0 Nylon suture. I then sprayed Rupali absorbable hemostat into the abdominal wall to minimize seroma formation. I used 3 vials. I started to close the abdominal wall skin flap in the midline with 2-0 Vicryl figure of eight interrupted sutures for the Hanane's fascia. I then closed the lateral aspect of the abdominal wall flaps with 2-0 Vicryl figure of eight interrupted sutures for Hannae's fascia. The deep dermis and subcutaneous tissue was approximated with 3-0 Monocryl interrupted sutures. The skin was approximated with 3-0 V lock unidirectional barbed running subcuticular suture. This was followed by Histoacryl skin tissue adhesive. This was followed by Histoacryl skin tissue adhesive. Good contour noted on the abdominal wall. No vascular compromise noted on the skin flap. Kerlix gauze was applied to the suture line and umbilicus followed by ABD pad compression dressing and an abdominal binder. The length of the complex s econdary wound closure was 48 cm. Patient tolerated the procedure well and was sent to PACU in satisfactory condition. Patient will be sent upstairs for continued postop care. Grafts/Implants Used: None. - Complications None. - Admit VTE Documentation VTE Present on Admission: No VTE Mechan Device Prophylaxis: SCD's VTE Pharm Prophylaxis ordered?: Yes Code Visit Surgery Charges CPT - 39204-05 ICD-10 - L98.492, L02.211, M79.89, E65, L30.4, Z79.01 40856 L98.492, L02.211, M79.89, E65, L30.4, Z79.01 L98.492, L02.211, M79.89, E65, L30.4, Z79.01 12735 L98.492, L02.211, M79.89, E65, L30.4, Z79.01
--- NOTE | 2019-02-26 09:35 | CASEMGMT ---
Patient is from [facility] ([facility]). JANEE faxed updates to [facility]. Natalia SINGH MSW
[2019-02-26] MEDS: HYDROmorphone 0.5 MG/0.5 ML SYRINGE IV ×2 (12:20→16:20)
[2019-02-26] MEDS: Multivitamins,Ther W-Minerals Tablet 1 TABLET PO ×2 (12:40→18:00)
[2019-02-26] MEDS: Docusate Sodium 100 MG Capsule PO ×2 (12:40→21:55)
[2019-02-26] MEDS: Pantoprazole Sodium 40 MG Tablet PO ×2 (12:41→21:55)
[2019-02-26] MEDS: Loratadine 10 MG Tablet PO (12:41)
[2019-02-26] MEDS: Lisinopril 40 MG Tablet PO (12:41)
[2019-02-26] MEDS: Calcium Carb/Vitamin D 1 TABLET Tablet PO (12:41)
[2019-02-26] MEDS: Tolterodine Tartrate 4 MG CAP.SA PO (12:41)
[2019-02-26] MEDS: Iron Polysaccharide Complex 150 MG CAPSULE PO (16:05)
[2019-02-26] MEDS: prednisoLONE eye drops (5 mL) 1 DROP OPTH.BTL 1 DRP OPHTHALMIC (16:06)
[2019-02-26] MEDS: 0.9% Saline Lock 10 ML Syringe IV (18:01)
[2019-02-26] MEDS: Acetaminophen 500 MG Tablet 1000 MG PO (19:52)
--- NOTE | 2019-02-26 21:35 | NURSING ---
Per Dr Tafoya, leave surgical drsg to abd intact. No not apply Rima drsg to wound.
[2019-02-26] MEDS: oxyCODONE 5 MG Tablet 10 MG PO (21:58)
[2019-02-27] VITALS (11 sets, daily range): BP systolic 82–114; BP diastolic 38–66; PULSE 86–102; RESP 16–24; TEMP 36.3–37.2; O2SAT 92–100
[2019-02-27] MEDS: oxyCODONE 5 MG Tablet 10 MG PO ×3 (01:59→22:50)
[2019-02-27] MEDS: Acetaminophen 500 MG Tablet 1000 MG PO ×2 (04:30→15:49)
[2019-02-27] MEDS: Levothyroxine 100 MCG Tablet PO (05:37)
[2019-02-27] MEDS: Enoxaparin 40 MG/0.4 ML Syringe SC (05:41)
[2019-02-27] MEDS: 0.9% Saline Lock 10 ML Syringe IV ×3 (05:42→21:06)
[2019-02-27] MEDS: Docusate Sodium 100 MG Capsule PO ×2 (08:15→21:18)
[2019-02-27] MEDS: Iron Polysaccharide Complex 150 MG CAPSULE PO (08:15)
[2019-02-27] MEDS: Loratadine 10 MG Tablet PO (08:15)
[2019-02-27] MEDS: Tolterodine Tartrate 4 MG CAP.SA PO (08:15)
[2019-02-27] MEDS: Pantoprazole Sodium 40 MG Tablet PO ×2 (08:18→21:18)
[2019-02-27] MEDS: Calcium Carb/Vitamin D 1 TABLET Tablet PO (08:18)
[2019-02-27] MEDS: prednisoLONE eye drops (5 mL) 1 DROP OPTH.BTL 1 DRP OPHTHALMIC (08:19)
[2019-02-27] MEDS: Multivitamins,Ther W-Minerals Tablet 1 TABLET PO ×2 (09:56→15:46)
--- NOTE | 2019-02-27 10:21 | CASEMGMT ---
Addendum entered by Natalia Milan 02/27/19 10:33: SW received a return call from patient's brother, Peter. He said he is not sure he should transport patient as she has that wound across her abdomen and it hurts for her to sit up. SW told him that is no problem and someone will let him know when patient is ready for d/c. Green sheet on chart for d/c back to [facility] ([facility]). Plan: d/c back to [facility] when ready. Natalia BACON Original Note: JANEE spoke with patient and she confirmed her plan is to return to [facility] at d/c. She is not sure if family will transport her back. She told SW to call her brother, Peter who is her POA. SW called Peter and left him a voice mail requesting a return call. Natalia BACON
--- NOTE | 2019-02-27 10:55 | NURSING ---
wound photo: lower abdomen
[2019-02-27] MEDS: 0.9% Normal Saline 1,000 ML 75 ML IV (11:11)
[2019-02-27 12:27] LABS: Absolute Lymphocyte Count 0.95 X10^3/uL (0.83-4.51); Absolute Neutrophil Count 11.3 X10^3/uL (2.0-7.7); Basophil# 0.03 X10^3/uL; Basophil% 0.2 % (0-1); Eosinophil# 0.08 X10^3/uL; Eosinophils% 0.6 % (0-5); Hematocrit 27.7 % (37-47); Hemoglobin 8.6 g/dL (12.0-15.0); Lymphocyte # 0.95 X10^3/ul (4.0); Lymphocyte % 6.8 % (19-41); Mean Corpuscular Hgb 30.7 pg (27.0-32.0); Mean Corpuscular Volume 98.9 fL (81-99); Mean Platelet Vol. 9.7 fl (6.2-12.0); Monocyte# 1.56 X10^3/uL; Monocyte% 11.1 % (0-10); NRBC Flagged by Analyzer 0 % (0-5); Neutrophil # 11.33 X10^3/uL (2.7-7.7); Neutrophil % 80.8 % (47-70); POSITIVE DIFFERENTIAL YES; Platelet Count 204 K/mm3 (150-450); RBC Distribution Width CV 15.9 % (11.6-14.6); RBC Distribution Width SD 57.3 fl (35.1-43.9)
[2019-02-27 12:53] LABS: Differential Indicated SCAN CRITERIA MET
[2019-02-27 12:58] LABS: Anion Gap 4 (5-15); BUN 36 mg/dL (7-18); BUN/Creat Ratio 34.6 RATIO (10-20); Calcium,Total 8.7 mg/dL (8.5-10.1); Chloride 112 mmol/L (98-107); Creatinine, Serum 1.04 mg/dL (0.55-1.02); EST Glomerular Filtration Rate 54 mL/min (>60); Est Glom Filt Rate - Afr Amer 66 mL/min (>60); Estimated Creatinine Clearance 30.99 ml/min; Glucose 99 mg/dL (74-106); Potassium 3.8 mmol/L (3.5-5.1); Sodium Level 143 mmol/L (136-145)
--- NOTE | 2019-02-27 13:11 | CASEMGMT ---
JANEE faxed wound nurse notes to [facility]. JANEE also called and spoke with Rona letting her know this was faxed and that SW still has not seen the physician so it is still not known when he will d/c patient. JANEE told her someone will call them and notify them when she is ready. Plan: d/c back to [facility]. Natalia SINGH MSW
[2019-02-27 14:34] LABS: Pathologist Review Reviewed
--- NOTE | 2019-02-27 16:51 | PCM.PN.SRG ---
Subjective: Postop #1 Patient complains of incisional pain. She is a little unsteady on her feet. - Physical Exam Vitals/I&O's: Vital Signs Temp Pulse Resp BP Pulse Ox 99 F 101 H 16 109/62 96 02/27/19 15:59 02/27/19 15:59 02/27/19 15:59 02/27/19 15:59 02/27/19 15:59 Oxygen Flow Rate (L/min) 2 Oxygen Delivery Method Room Air Weight: 142 lb 6.698 oz Body Mass Index (BMI) 27.8 Intake and Output for Last 24 Hours 02/25/19 02/26/19 02/27/19 23:59 23:59 23:59 Intake Total 1015.00 / 1255.00 2286.25 / 2286.25 1457.50 / 1457.50 Output Total 105 / 105 Balance 1015.00 / 1255.00 2255.25 / 2255.25 1352.50 / 1352.50 Drainage 31 ml yesterday, 150 ml today. General: Alert, Oriented x3 HEENT: PERRLA, EOMI Oral: Moist Mucosa Neck: Supple Abdomen: Soft, Non-Distended Skin: Incision - dry and intact. No clinical evidence of hematoma. Neurological: Cranial nerves II-XII grossly intact Psych/Mental Status: Normal Affect, Appropriate Microbiology Past 72 Hours 02/26/19 Unknown Tissue - Abdominal Gram Stain - Final 02/26/19 Unknown Tissue - Abdominal Wound Culture - Preliminary No growth-Final to follow Laboratory Results 02/25/19 15:05: Blood Type A POSITIVE, Antibody Screen NEGATIVE, Crossmatch See Detail 02/27/19 12:15: WBC 14.0 H, RBC 2.80 L, Hgb 8.6 L, Hct 27.7 L, MCV 98.9, MCH 30.7, MCHC 31.0 L, RDW Std Deviation 57.3 H, RDW Coeff of Migdalia 15.9 H, Plt Count 204, MPV 9.7, Immature Gran % (Auto) 0.500, Neut % (Auto) 80.8 H, Lymph % (Auto) 6.8 L, [place] % (Auto) 11.1 H, Eos % (Auto) 0.6, Baso % (Auto) 0.2, Absolute Neuts (auto) 11.3 H, Absolute Lymphs (auto) 0.95, Nucleated RBC % 0, Diff Path Review Reviewed 02/27/19 12:15: Sodium 143, Potassium 3.8, Chloride 112 H, Carbon Dioxide 27.0, Anion Gap 4 L, BUN 36 H, Creatinine 1.04 H, Estim Creat Clear Calc 30.99, Est GFR (MDRD) Af Amer 66, Est GFR (MDRD) Non-Af 54 L, BUN/Creatinine Ratio 34.6 H, Glucose 99, Calcium 8.7 02/27/19 15:35: Vancomycin Trough 11.0 Current Medications Acetaminophen (Tylenol) 1,000 mg PO TID PRN PRN PRN Reason: Pain or Fever Last Admin: 02/27/19 15:49 Dose: 1,000 mg Documented by: Benzonatate (Tessalon Perle) 100 mg PO TID PRN PRN PRN Reason: COUGH Bisacodyl (Dulcolax) 10 mg RECTAL PRN PRN PRN Reason: Constipation Calcium/Vitamin D (Os-Sly 500mg + D) 1 tablet PO DAILY [facility] Last Admin: 02/27/19 08:18 Dose: 1 tablet Documented by: Diazepam (Valium) 5 mg PO 4X/DAY PRN PRN PRN Reason: SPASMS Docusate Sodium (Colace) 100 mg PO BID [facility] Last Admin: 02/27/19 08:15 Dose: 100 mg Documented by: Hydromorphone HCl (Dilaudid Inj) 0.5 mg IV Q4H PRN PRN PRN Reason: Pain Score 6-10/10 Last Admin: 02/26/19 16:20 Dose: 0.5 mg Documented by: Sodium Chloride () 250 mls @ 15 mls/hr IV .[id number] PRN PRN Reason: Saline Flush Last Infusion: 02/27/19 13:07 Dose: 0 mls/hr Documented by: Piperacillin Sod/Tazobactam (Sod 3.375 gm/ Sodium Chloride) 50 mls @ 12.5 mls/hr IV Q8 [facility] Last Infusion: 02/27/19 15:49 Dose: Infused Documented by: Vancomycin IV Pharmacy to Dose (1 ea/ Sodium Chloride) 500 mls @ 250 mls/hr IV X1 PRN; Protocol PRN Reason: Rx to Dose Vancomycin HCl 750 mg/ Sodium (Chloride) 265 mls @ 250 mls/hr IV Q24H [facility] Last Admin: 02/27/19 15:45 Dose: 250 mls/hr Documented by: Sodium Chloride () 1,000 mls @ 100 mls/hr IV .Q10H [facility] Last Infusion: 02/27/19 11:30 Dose: 100 mls/hr Documented by: Levothyroxine Sodium (Synthroid) 100 mcg PO DAILY@0600 [facility] Last Admin: 02/27/19 05:37 Dose: 100 mcg Documented by: Lisinopril (Zestril) 40 mg PO DAILY [facility] Last Admin: 02/27/19 09:47 Dose: Not Given Documented by: Loratadine (Claritin) 10 mg PO DAILY [facility] Last Admin: 02/27/19 08:15 Dose: 10 mg Documented by: Multivitamins/Minerals ([facility]) [facility] Last Admin: 02/27/19 15:46 Dose: 1 tablet Documented by: Nutritional Formula (Peter - [place] Flavor) [facility] Last Admin: 02/27/19 15:46 Dose: 1 packet Documented by: Nutritional Formula (Lactose Free) (Ensure Enlive) 120 ml PO 4X/DAY [facility] Last Admin: 02/27/19 13:00 Dose: 120 ml Documented by: Ondansetron HCl (Zofran) 4 mg IV Q6H PRN PRN PRN Reason: NAUSEA Oxycodone HCl (Oxyir) 10 mg PO Q4H PRN PRN PRN Reason: Pain Score 6-10/10 Last Admin: 02/27/19 09:47 Dose: 10 mg Documented by: Pantoprazole Sodium (Protonix) 40 mg PO BID [facility] Last Admin: 02/27/19 08:18 Dose: 40 mg Documented by: Polysaccharide Iron Complex (Ferrex 150) [facility] Last Admin: 02/27/19 08:15 Dose: 150 mg Documented by: Prednisolone Acetate (Pred Forte Eye Drops (5 Ml)) 1 drop OPHTHALMIC DAILY [facility] Last Admin: 02/27/19 08:19 Dose: 1 drop Documented by: Promethazine HCl (Phenergan Tablet) 25 mg PO Q4H PRN PRN PRN Reason: NAUSEA/VOMITING Senna/Docusate Sodium (Senokot-S, Shanita-Colace) 1 tablet PO PRN PRN PRN Reason: Constipation Sodium Chloride () 10 - 40 ml IV UD PRN PRN Reason: SALINE FLUSH Last Admin: 02/27/19 15:49 Dose: 20 ml Documented by: Tolterodine Tartrate (Detrol La) 4 mg PO DAILY [facility] Last Admin: 02/27/19 08:15 Dose: 4 mg Documented by: Medical Necessity - Tobacco Use Smoking Status: Never smoker Assessment/Plan All Active Problems (Last Updated 01/06/19 @ 13:19 by Jonn Varghese MD) Tear of skin of left buttock (Acute) 1. Nonhealing infected ulcer lower anterior abdominal wall. 2. 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 3. Abdominal panniculus. 4. Abdominal wall skin crease intertrigo. 5. [facility] use of anticoagulation. 6. s/p surgical preparation lower anterior abdominal wall with excisional debridement skin, subcutaneous tissue, and fascia for necrotizing soft tissue infection abscess ulcers (588 cm2) and abdominal panniculectomy. 7. s/p surgical preparation lower anterior abdominal wall with excisional debridement nonhealing infected ulcer (240 cm2) and 48 cm complex secondary wound closure. 8. Anemia of chronic disease. Incision is dry and intact. Patient complains of incisional pain. She is a little unsteady on her feet. Encourage ambulation with assist. Will keep one more day. Hgb today is 8.6. Will transfuse the second PRBC today. Prealbumin was 10.3. Encourage nutritional supplementation with protein to help the healing process. Operative culture is negative thus far. Continue Vancomycin and Zosyn.
--- NOTE | 2019-02-27 17:04 | PCM.RX.CS ---
Consult Pharmacy has been consulted to manage selected antiobiotic: Vancomycin Type of Consult: Follow-up Suspected Infection: Skin/Soft tissue Prior Doses of Antibiotics Received/Current Regimen: Currently on 750mg iv q24h. Labs: Sodium 143 mmol/L (136-145) 02/27/19 12:15 Potassium 3.8 mmol/L (3.5-5.1) 02/27/19 12:15 Chloride 112 mmol/L (98-107) H 02/27/19 12:15 Carbon Dioxide 27.0 mmol/L (21.0-32.0) 02/27/19 12:15 Anion Gap 4 (5-15) L 02/27/19 12:15 BUN 36 mg/dL (7-18) H 02/27/19 12:15 Creatinine 1.04 mg/dL (0.55-1.02) H 02/27/19 12:15 Est GFR (MDRD) Af Amer 66 mL/min (>60) 02/27/19 12:15 Est GFR (MDRD) Non-Af 54 mL/min (>60) L 02/27/19 12:15 BUN/Creatinine Ratio 34.6 RATIO (10-20) H 02/27/19 12:15 Glucose 99 mg/dL (74-106) 02/27/19 12:15 Vancomycin Trough 11.0 ug/mL (5.0-15.0) 02/27/19 15:35 Microbiology: Microbiology 02/26/19 Unknown Tissue - Abdominal Gram Stain - Final 02/26/19 Unknown Tissue - Abdominal Wound Culture - Preliminary No growth-Final to follow Weight used for dosin.6 kg Estimated Creatinine Clearance: ~38ml/min Goal Trough: 10-15 mcg/mL Pharmacy Plan for Drug Dosing: Trough level today was 11.0 (goal range 10-15mcg/ml) ~21.5hrs post 02.26.19 dose. Renal function Cr 1.04 and CrCl ~38ml/min for adjusted body weight. Will continue 750mg iv q24h and a repeat trough level has been ordered for 03.01.19. Pharmacy Service will continue to monitor and adjust dosing as required. Follow-Up Labs: Trough Vancomycin - 03.01.19 @1530 before 1600 dose
[2019-02-27] MEDS: Furosemide 20 MG/2 ML VIAL 10 MG IV (21:06)
--- NOTE | 2019-02-28 01:57 | NURSING ---
Pt reporting at this time that she felt like she was standing on the end of the bed and she felt like she was going to fall. She states she has had two episodes likes this now. Pt states she felt like she wasn't in her room. Pt is A/O x3 at this time. BP 129/68. Pt reassured at this time that she is safe. Pt was given Oxyir previously.
[2019-02-28] MEDS: 0.9% Normal Saline 1,000 ML 60 ML IV (02:00)
[2019-02-28 04:54] VITALS: BP 113/58; PULSE 88; RESP 19; TEMP 36.9; O2SAT 93
[2019-02-28] MEDS: Acetaminophen 500 MG Tablet 1000 MG PO (06:29)
[2019-02-28] MEDS: Levothyroxine 100 MCG Tablet PO (06:30)
[2019-02-28 09:10] VITALS: BP 119/63; PULSE 79; RESP 18; TEMP 36.8; O2SAT 93
[2019-02-28] MEDS: Iron Polysaccharide Complex 150 MG CAPSULE PO (09:13)
[2019-02-28] MEDS: Multivitamins,Ther W-Minerals Tablet 1 TABLET PO (09:13)
[2019-02-28] MEDS: Loratadine 10 MG Tablet PO (09:13)
[2019-02-28] MEDS: Docusate Sodium 100 MG Capsule PO (09:13)
[2019-02-28] MEDS: Lisinopril 40 MG Tablet PO (09:14)
[2019-02-28] MEDS: prednisoLONE eye drops (5 mL) 1 DROP OPTH.BTL 1 DRP OPHTHALMIC (09:14)
[2019-02-28] MEDS: Calcium Carb/Vitamin D 1 TABLET Tablet PO (09:14)
[2019-02-28] MEDS: Pantoprazole Sodium 40 MG Tablet PO (09:14)
[2019-02-28] MEDS: Tolterodine Tartrate 4 MG CAP.SA PO (09:14)
[2019-02-28] MEDS: oxyCODONE 5 MG Tablet 10 MG PO (11:10)
[2019-02-28 11:32] LABS: Hematocrit 34.4 % (37-47); Hemoglobin 10.9 g/dL (12.0-15.0); Mean Corp Hgb Conc 31.7 g/dL (32-36); Mean Corpuscular Hgb 30.4 pg (27.0-32.0); Mean Corpuscular Volume 96.1 fL (81-99); Mean Platelet Vol. 9.4 fl (6.2-12.0); Platelet Count 221 K/mm3 (150-450); RBC Distribution Width CV 16.8 % (11.6-14.6); RBC Distribution Width SD 58.6 fl (35.1-43.9); Red Blood Count 3.58 M/mm3 (4.2-5.4); White Blood Count 11.6 K/mm3 (4.4-11.0)
--- NOTE | 2019-02-28 11:44 | TREXTCAR_ITS ---
- Diet 02/25/19 14:52 Diet: Regular Diet Is pt able to select menu?: Yes - Routine Orders/Code Status Routine Lab Work: BMP - in one week. fax results to wound center at [phone]. Code Status: Full Code - Wound(s) ABDOMEN Wound Type: Surgical Incision Dressing Change: Dry Sterile Dressing Mid Abdomin Wound Type: Open Surgical Wound - Suggestions for Active Care Hours to sit in a chair: 8 Times a day to sit in chair: 4 - Therapies Weight Bearing: Weight bearing as tolerated Extremity Affected:: Bilateral Lower Physical Therapy: Eval and Treat Occupational Therapy: Eval and Treat - Allergies/Procedures Done in Hospital Allergies/Adverse Reactions: Allergies gentamicin Adverse Reaction (Verified 02/18/19 16:23) Unknown Procedures: Blood transfusion, - - 02/26/19 - Surgical preparation lower anterior abdominal wall with excisional debridement nonhealing infected ulcer (240 cm2) and 48 cm complex secondary wound closure. - Type of Care/Length of Stay Estimated LOS: More Than 30 Days Type of Care Needed: Skilled Rehab Potential: Fair Prognosis: Fair - Additional Orders/Day of Discharge Additional Orders: shantanu drain x2 to bulb suction. nursing to empty and record output qshift. Augmentin 875mg po twice a day until the drains are removed. Percocet 5mg i tab po [id number] prn pain (30 tabs). Valium 5mg i tab po three times per day prn spasm (20 tabs). Wear abdominal binder. H&P will serve as current which was dated: 02/25/19 Day of Discharge: 02/28/19 - Dietary and Speech Recommendations Dietitian Recommendations/Changes: Rec continue Regular diet w/ Ensure Enlive 120 ml PO 4x/day at [facility] and Peter 1 packet BID. Will provide 1 scoop Beneprotein at meals to promote wound healing. - Follow Up Care Primary Care Physician: Chung Marcos [Primary Care Provider] - Please Follow Up With: Félix Tafoya MD When: saturday03/09/19 at wound center. call [phone] for appt.
[2019-02-28 11:46] LABS: Anion Gap 5 (5-15); BUN 37 mg/dL (7-18); BUN/Creat Ratio 39.6 RATIO (10-20); Calcium,Total 8.7 mg/dL (8.5-10.1); Chloride 112 mmol/L (98-107); Creatinine, Serum 0.93 mg/dL (0.55-1.02); EST Glomerular Filtration Rate 61 mL/min (>60); Est Glom Filt Rate - Afr Amer 74 mL/min (>60); Estimated Creatinine Clearance 34.66 ml/min; Glucose 131 mg/dL (74-106); Potassium 3.6 mmol/L (3.5-5.1); Sodium Level 143 mmol/L (136-145)
--- NOTE | 2019-02-28 11:54 | PCM.DC.SUM ---
Discharge Date and Diagnosis - Problem List Patient Problems: Active and Suspected Problems (Last Reviewed 03/02/19 @ 15:24 by Luz Andino) Iron deficiency anemia due to dietary causes (Acute) Date of Admission: 02/25/19 Date of Discharge: 02/28/19 - Primary Discharge Diagnosis Nonhealing infected ulcer lower anterior abdominal wall. 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 - Secondary Discharge Diagnosis Pannus, abdominal Intertriginous dermatitis associated with moisture jail current use of anticoagulant Generalized weakness Osteoporosis Degenerative arthritis Corneal dystrophy Chronic pain History of blood clots Hypertension Hypothyroidism Sleep apnea History of non-Hodgkin's lymphoma Chronic ITP (idiopathic thrombocytopenia) Hospital Course and Treatment Imaging Results: None. 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 Procedures: Blood transfusion Summary of Care Provided: 78-year-old woman presents with nonhealing infection abdominal ulcer that required surgery on 01/05/19 where she underwent surgical preparation lower anterior abdominal wall with excisional debridement skin, subcutaneous tissue, and fascia for necrotizing soft tissue infection abscess ulcers (588 cm2) and abdominal panniculectomy. Initial wound care was with the VAC. There were issues with the VAC and her wound care was changed to Dakin's dressing changes. Her wound has improved since the Dakin's dressing changes were started. Her operative cultures showed Proteus mirabilis. Preoperative cultures showed Proteus mirabilis, MRSE, Staphylococcus simulans (Methicillin resistant), Pseudomonas aeroginosa, and Anaerobic cocci. She was treated with Levaquin and then Augmentin and Doxycycline and has finished them. It was recommended to the patient to return to the OR for further operative debridement and complex secondary wound closure. She was in agreement. However, she had a preop Hgb of 7.7. She comes in today (day before surgery) to begin IV antibiotics in preparation for her surgery tomorrow and to receive PRBC in preparation for her surgery tomorrow. Will start with Vancomycin and Zosyn. She was given a unit of PRBC preop and a unit of PRBC postop. Her Hgb improved to 10.9 at discharge. It was 7.7 the week before surgery. She has anemia of chronic disease. On 02/26/19 the patient went to the operating room and underwent surgical preparation lower anterior abdominal wall with excisional debridement nonhealing infected ulcer (240 cm2) and 48 cm complex secondary wound closure. She worked on ambulation for a couple of days until she felt steady on her feet for discharge. Drainage has ranged from 31 ml to 150 ml per day. Will remove the drains at the Wound Center. Continue abdominal binder. She was treated perioperatively with Vancomycin and Zosyn. At discharge she was sent home on Augmentin. On the 2nd postop day, she was more steady on her feet with ambulation. Prealbumin was 10.3. Encourage nutritional supplementation with protein to help the healing process. Discharge on 02/28/19 back to [facility]. Wrote script for Augmentin until the drains are removed. Wrote scripts for Percocet for pain (30 tabs) and for Valium for spasm (20 tabs). Will start to remove the drains at the Wound Center on 03/09/19. The remaining drain will be removed the following week. Patient Problems: Active and Suspected Problems (Last Reviewed 03/02/19 @ 15:24 by Luz Andino) Iron deficiency anemia due to dietary causes (Acute) - Physical Exam Vitals/I&O's: Vital Signs Temp Pulse Resp BP Pulse Ox 98.2 F 79 18 119/63 93 02/28/19 09:10 02/28/19 09:10 02/28/19 09:10 02/28/19 09:10 02/28/19 09:10 Oxygen Flow Rate (L/min) 2 Oxygen Delivery Method Room Air Weight: 142 lb 6.698 oz Body Mass Index (BMI) 27.8 Intake and Output for Last 24 Hours 02/26/19 02/27/19 02/28/19 23:59 23:59 23:59 Intake Total 2286.25 / 2286.25 4090.84 / 4090.84 123.41 / 123.41 Output Total 150 / 150 45 / 45 Balance 2255.25 / 2255.25 3940.84 / 3940.84 78.41 / 78.41 Microbiology Past 72 Hours 02/26/19 Unknown Tissue - Abdominal Gram Stain - Final 02/26/19 Unknown Tissue - Abdominal Wound Culture - Final No growth aerobically. Laboratory Results 02/25/19 15:05: Blood Type A POSITIVE, Antibody Screen NEGATIVE, Crossmatch See Detail 02/27/19 12:15: WBC 14.0 H, RBC 2.80 L, Hgb 8.6 L, Hct 27.7 L, MCV 98.9, MCH 30.7, MCHC 31.0 L, RDW Std Deviation 57.3 H, RDW Coeff of Migdalia 15.9 H, Plt Count 204, MPV 9.7, Immature Gran % (Auto) 0.500, Neut % (Auto) 80.8 H, Lymph % (Auto) 6.8 L, Dewey % (Auto) 11.1 H, Eos % (Auto) 0.6, Baso % (Auto) 0.2, Absolute Neuts (auto) 11.3 H, Absolute Lymphs (auto) 0.95, Nucleated RBC % 0, Diff Path Review Reviewed 02/27/19 12:15: Sodium 143, Potassium 3.8, Chloride 112 H, Carbon Dioxide 27.0, Anion Gap 4 L, BUN 36 H, Creatinine 1.04 H, Estim Creat Clear Calc 30.99, Est GFR (MDRD) Af Amer 66, Est GFR (MDRD) Non-Af 54 L, BUN/Creatinine Ratio 34.6 H, Glucose 99, Calcium 8.7 02/27/19 15:35: Vancomycin Trough 11.0 02/28/19 11:20: WBC 11.6 H, RBC 3.58 L, Hgb 10.9 L, Hct 34.4 L, MCV 96.1, MCH 30.4, MCHC 31.7 L, RDW Std Deviation 58.6 H, RDW Coeff of Migdalia 16.8 H, Plt Count 221, MPV 9.4 02/28/19 11:20: Sodium 143, Potassium 3.6, Chloride 112 H, Carbon Dioxide 26.0, Anion Gap 5, BUN 37 H, Creatinine 0.93, Estim Creat Clear Calc 34.66, Est GFR (MDRD) Af Amer 74, Est GFR (MDRD) Non-Af 61, BUN/Creatinine Ratio 39.6 H, Glucose 131 H, Calcium 8.7 Current Medications Acetaminophen (Tylenol) 1,000 mg PO TID PRN PRN PRN Reason: Pain or Fever Last Admin: 02/28/19 06:29 Dose: 1,000 mg Documented by: Benzonatate (Tessalon Perle) 100 mg PO TID PRN PRN PRN Reason: COUGH Bisacodyl (Dulcolax) 10 mg RECTAL PRN PRN PRN Reason: Constipation Calcium/Vitamin D (Os-Sly 500mg + D) 1 tablet PO DAILY [facility] Last Admin: 02/28/19 09:14 Dose: 1 tablet Documented by: Diazepam (Valium) 5 mg PO 4X/DAY PRN PRN PRN Reason: SPASMS Docusate Sodium (Colace) 100 mg PO BID [facility] Last Admin: 02/28/19 09:13 Dose: 100 mg Documented by: Hydromorphone HCl (Dilaudid Inj) 0.5 mg IV Q4H PRN PRN PRN Reason: Pain Score 6-10/10 Last Admin: 02/26/19 16:20 Dose: 0.5 mg Documented by: Sodium Chloride () 250 mls @ 15 mls/hr IV .[id number] PRN PRN Reason: Saline Flush Last Infusion: 02/28/19 11:02 Dose: 0 mls/hr Documented by: Piperacillin Sod/Tazobactam (Sod 3.375 gm/ Sodium Chloride) 50 mls @ 12.5 mls/hr IV Q8 [facility] Last Infusion: 02/28/19 10:23 Dose: Infused Documented by: Vancomycin IV Pharmacy to Dose (1 ea/ Sodium Chloride) 500 mls @ 250 mls/hr IV X1 PRN; Protocol PRN Reason: Rx to Dose Sodium Chloride () 1,000 mls @ 60 mls/hr IV .[id number] [facility] Last Admin: 02/28/19 02:00 Dose: 60 mls/hr Documented by: Levothyroxine Sodium (Synthroid) 100 mcg PO DAILY@0600 [facility] Last Admin: 02/28/19 06:30 Dose: 100 mcg Documented by: Lisinopril (Zestril) 40 mg PO DAILY [facility] Last Admin: 02/28/19 09:14 Dose: 40 mg Documented by: Loratadine (Claritin) 10 mg PO DAILY [facility] Last Admin: 02/28/19 09:13 Dose: 10 mg Documented by: Multivitamins/Minerals (Multivitamin With Minerals) 1 tablet PO BIDCM [facility] Last Admin: 02/28/19 09:13 Dose: 1 tablet Documented by: Nutritional Formula (Peter - [place] Flavor) 1 packet PO BIDCM [facility] Last Admin: 02/28/19 09:13 Dose: 1 packet Documented by: Nutritional Formula (Lactose Free) (Ensure Enlive) 120 ml PO 4X/DAY [facility] Last Admin: 02/28/19 09:14 Dose: 120 ml Documented by: Ondansetron HCl (Zofran) 4 mg IV Q6H PRN PRN PRN Reason: NAUSEA Oxycodone HCl (Oxyir) 10 mg PO Q4H PRN PRN PRN Reason: Pain Score 6-10/10 Last Admin: 02/28/19 11:10 Dose: 10 mg Documented by: Pantoprazole Sodium (Protonix) 40 mg PO BID [facility] Last Admin: 02/28/19 09:14 Dose: 40 mg Documented by: Polysaccharide Iron Complex (Ferrex 150) [facility] Last Admin: 02/28/19 09:13 Dose: 150 mg Documented by: Prednisolone Acetate (Pred Forte Eye Drops (5 Ml)) 1 drop OPHTHALMIC DAILY [facility] Last Admin: 02/28/19 09:14 Dose: 1 drop Documented by: Promethazine HCl (Phenergan Tablet) 25 mg PO Q4H PRN PRN PRN Reason: NAUSEA/VOMITING Senna/Docusate Sodium (Senokot-S, Shanita-Colace) 1 tablet PO PRN PRN PRN Reason: Constipation Sodium Chloride () 10 - 40 ml IV UD PRN PRN Reason: SALINE FLUSH Last Admin: 02/27/19 21:06 Dose: 20 ml Documented by: Tolterodine Tartrate (Detrol La) 4 mg PO DAILY [facility] Last Admin: 02/28/19 09:14 Dose: 4 mg Documented by: Discharge Diet: No Restrictions, - - encourage nutritional supplementation with protein to help the healing process. Weight Bearing Status: Weight bearing as tolerated Lifting Restrict to (lbs):: 20 Keep extremity elevated above heart level: - - elevate head. Call your doctor if your incision/area has: Continuous Slow Oozing, Sudden Increased Bleeding, Increased Pain/ Swelling, Increased Redness, Foul Smelling Discharge, Swelling at the incision site Call your doctor if you observe: Fever of 101 or Higher, Coldness, Increased Pain, Shortness of breath, Chest pain, Calf discomfort, Uncontrolled pain Cleanse incision/area with: - - may get the incision wet in the shower after the drains are removed. Drain: Suction - shantanu drain x2 to bulb suction. Empty and record output daily. Additional Dressing/Incision Instructions:: wear abdominal binder. Home Medications: Medications to take at Discharge Cetirizine HCl [Zyrtec] 10 mg PO DAILY 06/20/16 Vitamin E (Dl,Tocopheryl Acet) [E-200] 400 unit PO DAILY 06/20/16 artificial tears (hypromellose) 0.3 % eye gel 1 drp EACH EYE 4X/DAY PRN 05/24/17 prednisolone acetate 1 % eye drops,suspension 1 drp RIGHT EYE DAILY 05/24/17 multivitamin with minerals tablet 1 tab PO DAILY tab 09/04/18 docusate sodium 100 mg capsule 100 mg PO BID cap 09/24/18 Krill Oil 500 mg PO DAILY 12/16/18 Acetaminophen 2 tab PO TID PRN PRN 01/02/19 Benzonatate [Tessalon Perle] 100 mg PO TID PRN PRN 01/02/19 Bisacodyl 10 mg RECTAL PRN PRN 01/02/19 Ferrous Sulfate [Iron] 325 mg PO TID 01/02/19 Lisinopril 40 mg PO DAILY 01/02/19 Sennosides/Docusate Sodium [Senna-S Tablet] 1 ea PO DAILY PRN 01/02/19 Sodium Chloride [Noé-128] 1 drp EACH EYE BID PRN PRN 01/02/19 Levothyroxine Sodium 100 mcg PO DAILY 01/12/19 Ensure Enlive 120 ml PO DAILY 02/18/19 Magnesium Hydroxide [Milk Of Magnesia] 30 ml PO DAILY PRN 02/25/19 Pantoprazole Sodium [Protonix] 40 mg PO BID 02/25/19 Tolterodine Tartrate [Detrol LA] 4 mg PO DAILY 02/25/19 Vitamin B Complex 1 ea PO DAILY 02/25/19 proMETHazine tablet [Phenergan tablet] 25 mg PO Q8H PRN PRN 02/25/19 Amox/Clavulanate Tablet [Augmentin Tablet] 875 mg PO Q12H #30 tab 02/28/19 Calcium Carb/Vitamin D [Os-Sly 500MG + D] 1 tab PO DAILY tab 02/28/19 Diazepam [Valium] 5 mg PO TID PRN PRN #20 tab 02/28/19 Ensure Enlive 120 ml PO 4X/DAY liquid 02/28/19 Oxycodone HCl/Acetaminophen [Percocet 5/325] 1 tab PO Q6H PRN PRN 7 Days #30 tab 02/28/19 Peg 400/Hypromellose/Glycerin [Artificial Tears] 1 drp OPHTHALMIC (EYE) DAILY PRN PRN bottle 02/28/19 Tolterodine Tartrate [Detrol LA] 4 mg PO DAILY cap.sa 02/28/19 proMETHazine tablet [Phenergan tablet] 25 mg PO Q4H PRN PRN tab 02/28/19 Following Prescrptions Were Given to Patient: Amox/Clavulanate Tablet [Augmentin Tablet] 875 mg PO Q12H #30 tab Prescription Printed Oxycodone HCl/Acetaminophen [Percocet 5/325] 1 tab PO Q6H PRN PRN 7 Days #30 tab PRN Reason: Pain Score 4-5/10 Prescription Printed Diazepam [Valium] 5 mg PO TID PRN PRN #20 tab PRN Reason: Spasms Prescription Printed Other Amb Orders: Basic Metabolic Profile (BMP) Time Frame: 1 Week, Facility: [facility], Location: [facility] Primary Care Physician: Chung Marcos [Primary Care Provider] - Please Follow Up With: Félix Tafoya MD When: saturday03/09/19 at wound center. call [phone] for appt. Disposition: Senior Living facility Minutes spent on discharge:: 35 Patient Condition:: Fair Medical Necessity - Tobacco Use Smoking Status: Never smoker Meaningful Use Info Meaningful Use Diagnoses (Choose all that apply): None applicable
--- NOTE | 2019-02-28 12:36 | NURSING ---
Report called to the [facility]. Report given to nurse Jamison.
--- NOTE | 2019-02-28 13:48 | NURSING ---
Brother took patient's belongings, including home CPAP, jacket and blue bag to [facility].
== END 2019-02-28 14:00 | disposition skilled nursing facility (03) | DRG 571 ==
PROVIDERS: Admitting Provider Surgery; Family Provider Family Medicine; PCP Family Medicine; Referring Provider Surgery; Visit Provider Surgery
PROC: 0JB80ZZ Excision of Abdomen Subcutaneous Tissue and Fascia, Open Approach (ICD-10-PCS; principal; 2019-02-26 07:15)
DX: L98.499 Non-pressure chronic ulcer of skin of other sites with unspecified severity (principal); D69.3 Immune thrombocytopenic purpura; C85.90 Non-Hodgkin lymphoma, unspecified, unspecified site; I96 Gangrene, not elsewhere classified; D63.8 Anemia in other chronic diseases classified elsewhere; D50.8 Other iron deficiency anemias; L30.4 Erythema intertrigo; E03.9 Hypothyroidism, unspecified; G47.30 Sleep apnea, unspecified; I10 Essential (primary) hypertension; M81.0 Age-related osteoporosis without current pathological fracture; M19.90 Unspecified osteoarthritis, unspecified site; Z79.01 Long term (current) use of anticoagulants; G89.29 Other chronic pain; E65 Localized adiposity
CPT/HCPCS: 36415; 80048; 80053; 80202; 84134; 85025; 85027; 85652; 86140; 86850; 86900; 86901; 86920; 86922; 87070; 87075; 87102; 87205; 87206; 88305; 97116; 97162; 97165; 97530; 97802; 99251; J7030; J7040; J7050; J7120; P9016; A4216; G0463; J1940; J2405

== ENCOUNTER → 2019-03-23 05:00 | Outpatient (REF) | payer MEDICARE, OTHER, SELFPAY ==
[2019-03-16 10:26] VITALS: BMI 31.3
[2019-03-23 08:11] LABS: Absolute Lymphocyte Count 1.18 X10^3/uL (0.83-4.51); Absolute Neutrophil Count 3.1 X10^3/uL (2.0-7.7); Basophil# 0.02 X10^3/uL; Basophil% 0.4 % (0-1); Eosinophil# 0.35 X10^3/uL; Eosinophils% 6.3 % (0-5); Hematocrit 31.6 % (37-47); Hemoglobin 10.2 g/dL (12.0-15.0); Lymphocyte # 1.18 X10^3/ul (4.0); Lymphocyte % 21.2 % (19-41); Mean Corp Hgb Conc 32.3 g/dL (32-36); Mean Corpuscular Hgb 31.3 pg (27.0-32.0); Mean Corpuscular Volume 96.9 fL (81-99); Mean Platelet Vol. 11.1 fl (6.2-12.0); Monocyte# 0.86 X10^3/uL; Monocyte% 15.5 % (0-10); NRBC Flagged by Analyzer 0 % (0-5); Neutrophil # 3.13 X10^3/uL (2.7-7.7); Neutrophil % 56.2 % (47-70); Platelet Count 182 K/mm3 (150-450); RBC Distribution Width CV 15.6 % (11.6-14.6); RBC Distribution Width SD 55.8 fl (35.1-43.9); Red Blood Count 3.26 M/mm3 (4.2-5.4); White Blood Count 5.6 K/mm3 (4.4-11.0)
[2019-03-23 08:25] LABS: Anion Gap 3 (5-15); BUN 51 mg/dL (7-18); BUN/Creat Ratio 63.8 RATIO (10-20); Calcium,Total 8.7 mg/dL (8.5-10.1); Chloride 107 mmol/L (98-107); EST Glomerular Filtration Rate 73 mL/min (>60); Est Glom Filt Rate - Afr Amer 89 mL/min (>60); Glucose 80 mg/dL (74-106); Potassium 4.4 mmol/L (3.5-5.1); Sodium Level 140 mmol/L (136-145)
[2019-03-25 00:34] VITALS: BMI 27.8
== END ==
LOC: OLS.ACH 05:00
PROVIDERS: Family Provider Family Medicine; PCP Family Medicine; Visit Provider Family Medicine
DX: D50.0 Iron deficiency anemia secondary to blood loss (chronic) (principal)
CPT/HCPCS: 36415; 80048; 85025

== ENCOUNTER 2019-03-23 10:45 | Outpatient (RCR) | payer MEDICARE, OTHER, SELFPAY ==
[2019-02-22 00:42] VITALS: BP 114/58; PULSE 95; RESP 16; TEMP 37
[2019-03-09 08:17] VITALS: BP 119/61; PULSE 90; RESP 18; TEMP 37.3; BMI 31.3
--- NOTE | 2019-03-09 17:46 | PN.PCM_ITS ---
Type of Wound Date of Service: 03/09/19 Chief Complaint: Nonhealing infected ulcer lower anterior abdominal wall with recent closure on 02/26/19. History of Wound: Surgery 02/26/19 - Surgical preparation lower anterior abdominal wall with excisional debridement nonhealing infected ulcer (240 cm2) a nd 48 cm complex secondary wound closure. Wound care - dry dressings. Operative culture - negative. Was discharged on Augmentin until the drains are removed. Prealbumin from 02/25/19 was 10.3. Encourage nutritional supplementation with protein to help the healing process. Surgery 01/05/19 - 1. Surgical preparation lower anterior abdominal wall with excisional debridement skin, subcutaneous tissue, and fascia for necrotizing soft tissue infection abscess ulcers (588 cm2). 2. Abdominal panniculectomy. Operative culture from 01/05/19 - Proteus mirabilis. Preop culture showed Proteus mi rabilis, MRSE, and Anaerobic cocci. She was placed on Augmentin and Doxycycline and finished them. Today she denies fever. Her appetite is ok. Progress of Wound: Recent surgical wound closure on 02/26/19 with central abrasion. - Physical Exam Vital Signs Temp Pulse Resp BP 99.1 F 90 18 119/61 03/09/19 08:17 03/09/19 08:17 03/09/19 08:17 03/09/19 08:17 Wound Measurements and Assessment WC - Nurse 1 - General Ulcer Measurement Start: 02/25/19 14:55 Freq: Status: Active Protocol: Activity Type Activity Date Activity User E-Sign Co-Sign Detail Recorded Client Recorded Date Recorded By Document 03/09/19 08:17 MW [id number] 03/09/19 08:35 MW 03/09/19 08:17 Wound Center Nurse 1 [Ulcer Assessment] #6 lower abd post surgical -Combined with other wound No -Current Size (cm) - Length 0.1 -Current Size (cm) - Width 0.1 -Current Size (cm) - Depth 0.1 -Total Square Cm 0.01 -Date of Last Picture (Recall this 03/09/19 field) -Photo Taken Yes -Epithelialization None Present -Tunneling No -Undermining/Tunneling No -Circular Undermining No -Exudate Amt Small -Exudate Type Serosanguineous -Wound Margin Flat & Intact -Granulation Amt None Present (0 %) -Granulation Quality N/A -Slough/Fibrin Yes -Necrosis Amt Small (1-33%) -Necrotic Tissue Type Adherent Slough -Structure Exposed N/A -Texture (Shanita-wound Skin Appearance) Assessed, Scarring -Moisture (Shanita-wound Skin Appearance Assessed,Dry/ ) Scaly -Color (Shanita-wound Skin Appearance) No Abnormality, Assessed -Temperature (Shanita-wound Skin No Abnormality Appearance) (Pt Warm) -Tenderness on Palpation (Shanita-wound No Skin Appearance) -Ulcer Cleansing soap and water -Foul Odor after Cleansing No #5- LOWER ABDOMEN -Combined with other wound No -Current Size (cm) - Length 0 -Current Size (cm) - Width 0 -Current Size (cm) - Depth 0 -Total Square Cm 0 #4 R Lat ABD inf -Combined with other wound No -Current Size (cm) - Length 0 -Current Size (cm) - Width 0 -Current Size (cm) - Depth 0 -Total Square Cm 0 [Edema Assessment] -Lower Limb Edema Present No WC - Nurse 2 - General Ulcer CM Notes Start: 02/25/19 14:55 Freq: Status: Active Protocol: Activity Type Activity Date Activity User E-Sign Co-Sign Detail Recorded Client Recorded Date Recorded By Document 03/09/19 08:56 [id number] 03/09/19 08:57 03/09/19 08:56 Wound Center Nurse 2 [Procedure/Treatment] #6 lower abd post surgical -Correct Patient No -Correct Side, Site, Position No -Correct Procedure No -Procedure Performed No -Wound/Ulcer Outcome Not Healed #5- LOWER ABDOMEN -Correct Patient No -Correct Side, Site, Position No -Correct Procedure No -Procedure Performed No -Wound/Ulcer Outcome Not Healed [See Physician Procedure note for Specifics] Pain Scale: 0-10 Numeric [Pain] -Is Patient Pain Free? Yes Debridement Note Post-Debridement Measurements/Treatment WC - Nurse 2 - General Ulcer CM Notes Start: 02/25/19 14:55 Freq: Status: Active Protocol: Activity Type Activity Date Activity User E-Sign Co-Sign Detail Recorded Client Recorded Date Recorded By Document 03/09/19 08:56 [id number] 03/09/19 08:57 03/09/19 08:56 Wound Center Nurse 2 #6 lower abd post surgical -Correct Patient No -Correct Side, Site, Position No -Correct Procedure No -Procedure Performed No -Wound/Ulcer Outcome Not Healed #5- LOWER ABDOMEN -Correct Patient No -Correct Side, Site, Position No -Correct Procedure No -Procedure Performed No -Wound/Ulcer Outcome Not Healed Pain Scale: 0-10 Numeric Is Patient Pain Free? Yes Wound debrided: #6 Lower anterior abdominal wall. Laterality: Not Applicable Wound Grade/Stage: 2. No debridement was completed today - Patient has a small central abrasion ulceration from friction from skin rubbing on skin. Will apply Silver dressing changes to this abrasion daily. Assessment/Plan Assessment: 1. Nonhealing infected ulcer lower anterior abdominal wall with recent surgical closure on 02/26/19 and central abrasion. 2. 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 3. Abdominal panniculus. 4. Abdominal wall skin crease intertrigo. 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 Plan: The incision is dry and intact except for the central area where there is a superficial abrasion most likely from abrasion from skin rubbing on skin which kept in the moisture leading to the abrasion. Will start Silver dressings to the central abrasion. The rest of the incision can be covered with dry gauze to keep her skin from rubbing on skin which can lead to further moisture breakdown. One of her drains was removed today. The other drain will be removed next week. Her Prealbumin is 10.3. Encourage nutritional supplementation with protein to help the healing process. Until the drains are removed, continue Augmentin. Her operative culture was negative. Followup one week. Continue abdominal binder. Code Visit Wound Center Charges CPT - 56607 ICD-10 - V58.49, L98.492, L02.211, M79.89, E65, L30.4. Z79.01
[2019-03-16 10:26] VITALS: BP 125/43; PULSE 96; RESP 16; TEMP 36.8; BMI 31.3
--- NOTE | 2019-03-16 15:49 | PCM.WC.PN ---
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 History of Wound: Surgery 02/26/19 - Surgical preparation lower anterior abdominal wall with excisional debridement nonhealing infected ulcer (240 cm2) and 48 cm complex secondary wound closure. Wound care - Silver in the couple areas where the incision has and dry gauze along the entire suture line daily or every other day if there is not much drainage. Operative culture - negative. Was discharged on Augmentin until the drains are removed. Prealbumin from 02/25/19 was 10.3. Encourage nutritional supplementation with protein to help the healing process. Surgery 01/05/19 - 1. Surgical preparation lower anterior abdominal wall with excisional debridement skin, subcutaneous tissue, and fascia for necrotizing soft tissue infection abscess ulcers (588 cm2). 2. Abdominal panniculectomy. Operative culture from 01/05/19 - Proteus mirabilis. Preop culture showed Proteus mirabilis, MRSE, and Anaerobic cocci. She was placed on Augmentin and Doxycycline and finished them. Today she denies fever. Her appetite is ok. Progress of Wound: Recent surgical wound closure on 02/26/19 with central abrasion. - Physical Exam Vital Signs Temp Pulse Resp BP 98.3 F 96 16 125/43 H 03/16/19 10:26 03/16/19 10:26 03/16/19 10:26 03/16/19 10:26 General: Alert, Oriented x3, Cooperative HEENT: Atraumatic Oral: Moist Mucosa Lungs: Normal air movement Cardiovascular: Regular rate Abdomen: Soft Extremities: Capillary Refill Less than 3 Seconds Skin: Ulcer/ Wound - lower abdominal incision with a few areas of separation Wound Measurements and Assessment WC - Nurse 1 - General Ulcer Measurement Start: 02/25/19 14:55 Freq: Status: Active Protocol: Activity Type Activity Date Activity User E-Sign Co-Sign Detail Recorded Client Recorded Date Recorded By Document 03/16/19 10:26 [facility] [id number] 03/16/19 10:35 [facility] 03/16/19 10:26 Wound Center Nurse 1 [Ulcer Assessment] #6 lower abd post surgical -Combined with other wound No -Current Size (cm) - Length 0.1 -Current Size (cm) - Width 0.1 -Current Size (cm) - Depth 0.1 -Total Square Cm 0.01 -Date of Last Picture (Recall this 03/16/19 field) -Photo Taken Yes -Epithelialization Small 1-33% -Tunneling No -Undermining/Tunneling No -Circular Undermining No -Exudate Amt Small -Exudate Type Serosanguineous -Wound Margin Distinct, Outline Attached -Granulation Amt Medium (34-66%) -Granulation Quality [place] -Slough/Fibrin Yes -Necrosis Amt Medium (34-66%) -Necrotic Tissue Type Adherent Slough -Texture (Shanita-wound Skin Appearance) Assessed, Scarring -Moisture (Shanita-wound Skin Appearance Assessed,Dry/ ) Scaly -Color (Shanita-wound Skin Appearance) Assessed, Erythema -Temperature (Shanita-wound Skin No Abnormality Appearance) (Pt Warm) -Tenderness on Palpation (Shanita-wound Yes Skin Appearance) -Ulcer Cleansing soapy water -Foul Odor after Cleansing No -Anesthetic Used 4% Lidocaine Solution WC - Nurse 2 - General Ulcer CM Notes Start: 02/25/19 14:55 Freq: Status: Active Protocol: Activity Type Activity Date Activity User E-Sign Co-Sign Detail Recorded Client Recorded Date Recorded By Document 03/16/19 11:00 [id number] 03/16/19 11:07 03/16/19 11:00 Wound Center Nurse 2 [Procedure/Treatment] -Time 11:01 -Correct Patient Yes -Correct Side, Site, Position Yes -Correct Procedure Yes -Procedure Performed Yes -Type of Procedure Debridement -Clinical Debridement Selective -Post Debridement Size (cm) - Length 1.3 -Post Debridement Size (cm) - Width 53.0 -Post Debridement Size (cm) - Depth 0.3 -Total Square Cm 68.90 -Wound/Ulcer Outcome Not Healed -Ulcer Cleansing Rinsed/ Irrigated with Saline -Foul Odor after Cleansing No -Bioengineered Tissue No -Bleeding Controlled with Pressure -Offloading No -Treatment Response Procedure Tolerated Well [See Physician Procedure note for Specifics] Pain Scale: 0-10 Numeric [Pain] -Is Patient Pain Free? Yes Musculoskeletal: No Muscle Wasting Neurological: Neuro grossly intact Psych/Mental Status: Normal Affect, Appropriate Debridement Note Post-Debridement Measurements/Treatment WC - Nurse 2 - General Ulcer CM Notes Start: 02/25/19 14:55 Freq: Status: Active Protocol: Activity Type Activity Date Activity User E-Sign Co-Sign Detail Recorded Client Recorded Date Recorded By Document 03/09/19 08:56 [id number] 03/09/19 08:57 Document 03/16/19 11:00 [id number] 03/16/19 11:07 03/09/19 03/16/19 08:56 11:00 Wound Center Nurse 2 #6 lower abd post surgical -Time 11:01 -Correct Patient No Yes -Correct Side, Site, Position No Yes -Correct Procedure No Yes -Procedure Performed No Yes -Type of Procedure Debridement -Clinical Debridement Selective -Post Debridement Size (cm) - Length 1.3 -Post Debridement Size (cm) - Width 53.0 -Post Debridement Size (cm) - Depth 0.3 -Total Square Cm 68.90 -Wound/Ulcer Outcome Not Healed Not Healed -Ulcer Cleansing Rinsed/ Irrigated with Saline -Foul Odor after Cleansing No -Bioengineered Tissue No -Bleeding Controlled with Pressure -Offloading No -Treatment Response Procedure Tolerated Well #5- LOWER ABDOMEN -Correct Patient No -Correct Side, Site, Position No -Correct Procedure No -Procedure Performed No -Wound/Ulcer Outcome Not Healed Pain Scale: 0-10 Numeric Is Patient Pain Free? Yes Yes Wound debrided: lower abdominal incision with a few areas of separation Type of Debridement: Selective debridement Anesthesia Used: 5% Lidocaine Gel Depth: Down to and including healthy tissue, in the subcutaneous layer Percentage of wound debrided: 100 Instrument Used: - - scissors and pickups Tissue Removed: Subcutaneous tissue, slough and scabbing Severity: Limited To Skin Breakdown Amount of bleeding with debridement: Mild Bleeding Controlled with: Pressure Patient tolerated procedure well Assessment/Plan Assessment: 1. Nonhealing infected ulcer lower anterior abdominal wall with recent surgical closure on 02/26/19 and central abrasion. 2. 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 3. Abdominal panniculus. 4. Abdominal wall skin crease intertrigo. 5. [facility] use of anticoagulation. Plan: The incision is dry and intact except for the central area where there is a superficial abrasion most likely from abrasion from skin rubbing on skin which kept in the moisture leading to the abrasion. Will start Silver dressings to the central abrasion. The rest of the incision can be covered with dry gauze to keep her skin from rubbing on skin which can lead to further moisture breakdown. Her remaining drain fell out yesterday. Removed the suture that was still in an did a selective debridement to certain areas along the incision line that have . Her Prealbumin is 10.3. Encourage nutritional supplementation with protein to help the healing process. Until the drains are removed, continue Augmentin. Her operative culture was negative. Followup one week. Continue abdominal binder. Code Visit [id number]
[2019-03-23 10:56] VITALS: BP 126/69; PULSE 90; RESP 16; TEMP 36.1; BMI 31.3
--- NOTE | 2019-03-23 16:14 | PN.PCM_ITS ---
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 History of Wound: Surgery 02/26/19 - Surgical preparation lower anterior abdominal wall with excisional debridement nonhealing infected ulcer (240 cm2) and 48 cm complex secondary wound closure. Wound care - Silver in the couple areas where the incision has and dry gauze along the entire suture line daily or every other day if there is not much drainage. Operative culture - negative. Was discharged on Augmentin until the drains are removed. Prealbumin from 02/25/19 was 10.3. Encourage nutritional supplementation with protein to help the healing process. Surgery 01/05/19 - 1. Surgical preparation lower anterior abdominal wall with excisional debridement skin, subcutaneous tissue, and fascia for necrotizing soft tissue infection abscess ulcers (588 cm2). 2. Abdominal panniculectomy. Operative culture from 01/05/19 - Proteus mirabilis. Preop culture showed Proteus mirabilis, MRSE, and Anaerobic cocci. She was placed on Augmentin and Doxycycline and finished them. Today she denies fever. Her appetite is ok. Progress of Wound: Recent surgical wound closure on 02/26/19 with central abrasion. - Physical Exam Vital Signs Temp Pulse Resp BP 97.0 F L 90 16 126/69 H 03/23/19 10:56 03/23/19 10:56 03/23/19 10:56 03/23/19 10:56 General: Alert, Oriented x3, Cooperative HEENT: Atraumatic Oral: Moist Mucosa Lungs: Normal air movement Cardiovascular: Regular rate Abdomen: Soft Extremities: Capillary Refill Less than 3 Seconds Skin: Ulcer/ Wound - lower abdominal incision with some openings to the incision line Wound Measurements and Assessment WC - Nurse 1 - General Ulcer Measurement Start: 02/25/19 14:55 Freq: Status: Active Protocol: Activity Type Activity Date Activity User E-Sign Co-Sign Detail Recorded Client Recorded Date Recorded By Document 03/23/19 10:56 MW [id number] 03/23/19 11:10 MW 03/23/19 10:56 Wound Center Nurse 1 [Ulcer Assessment] #6 lower abd post surgical -Combined with other wound No -Current Size (cm) - Length 1.0 -Current Size (cm) - Width 47.0 -Current Size (cm) - Depth 0.1 -Total Square Cm 47.00 -Photo Taken No -Epithelialization Small 1-33% -Tunneling No -Undermining/Tunneling No -Circular Undermining No -Exudate Amt Small -Exudate Type Serosanguineous -Wound Margin Flat & Intact -Granulation Amt Small (1-33%) -Granulation Quality [place] -Slough/Fibrin Yes -Necrosis Amt Large (67-100%) -Necrotic Tissue Type Adherent Slough -Structure Exposed N/A -Texture (Shanita-wound Skin Appearance) Assessed, Scarring -Moisture (Shanita-wound Skin Appearance Assessed,Dry/ ) Scaly -Color (Shanita-wound Skin Appearance) No Abnormality, Assessed -Temperature (Shanita-wound Skin No Abnormality Appearance) (Pt Warm) -Tenderness on Palpation (Shanita-wound No Skin Appearance) -Ulcer Cleansing soap and water -Anesthetic Used 4% Lidocaine Solution [Edema Assessment] -Lower Limb Edema Present No WC - Nurse 2 - General Ulcer CM Notes Start: 02/25/19 14:55 Freq: Status: Active Protocol: Activity Type Activity Date Activity User E-Sign Co-Sign Detail Recorded Client Recorded Date Recorded By Document 03/23/19 11:57 [id number] 03/23/19 12:03 03/23/19 11:57 Wound Center Nurse 2 [Procedure/Treatment] #6 lower abd post surgical -Time 12:00 -Correct Patient Yes -Correct Side, Site, Position Yes -Correct Procedure Yes -Procedure Performed Yes -Type of Procedure Debridement -Clinical Debridement Subcutaneous -Post Debridement Size (cm) - Length 0.8 -Post Debridement Size (cm) - Width 57 -Post Debridement Size (cm) - Depth 0.5 -Total Square Cm 45.6 -Wound/Ulcer Outcome Not Healed -Ulcer Cleansing Rinsed/ Irrigated with Saline -Foul Odor after Cleansing No -Bioengineered Tissue No -Bleeding Controlled with Pressure -Offloading No -Treatment Response Procedure Tolerated Well [See Physician Procedure note for Specifics] Pain Scale: 0-10 Numeric [Pain] -Is Patient Pain Free? Yes Musculoskeletal: No Tenderness to Palpation of Joints or Extremities Neurological: Neuro grossly intact Psych/Mental Status: Normal Affect, Appropriate Debridement Note Post-Debridement Measurements/Treatment WC - Nurse 2 - General Ulcer CM Notes Start: 02/25/19 14:55 Freq: Status: Active Protocol: Activity Type Activity Date Activity User E-Sign Co-Sign Detail Recorded Client Recorded Date Recorded By Document 03/09/19 08:56 [id number] 03/09/19 08:57 Document 03/16/19 11:00 [id number] 03/16/19 11:07 Document 03/23/19 11:57 [id number] 03/23/19 12:03 03/09/19 03/16/19 03/23/19 08:56 11:00 11:57 Wound Center Nurse 2 #6 lower abd post surgical -Time 11:01 12:00 -Correct Patient No Yes Yes -Correct Side, Site, Position No Yes Yes -Correct Procedure No Yes Yes -Procedure Performed No Yes Yes -Type of Procedure Debridement Debridement -Clinical Debridement Selective Subcutaneous -Post Debridement Size (cm) - Length 1.3 0.8 -Post Debridement Size (cm) - Width 53.0 57 -Post Debridement Size (cm) - Depth 0.3 0.5 -Total Square Cm 68.90 45.6 -Wound/Ulcer Outcome Not Healed Not Healed Not Healed -Ulcer Cleansing Rinsed/ Rinsed/ Irrigated with Irrigated with Saline Saline -Foul Odor after Cleansing No No -Bioengineered Tissue No No -Bleeding Controlled with Pressure Pressure -Offloading No No -Treatment Response Procedure Procedure Tolerated Well Tolerated Well #5- LOWER ABDOMEN -Correct Patient No -Correct Side, Site, Position No -Correct Procedure No -Procedure Performed No -Wound/Ulcer Outcome Not Healed Pain Scale: 0-10 Numeric Is Patient Pain Free? Yes Yes Yes Wound debrided: Lower abdominal incision with several open areas Type of Debridement: Excisional debridement Anesthesia Used: 5% Lidocaine Gel Depth: Down to and including healthy tissue, in the subcutaneous layer Percentage of wound debrided: 100 Instrument Used: 3mm curette Tissue Removed: Subcutaneous tissue and slough Severity: Limited To Skin Breakdown Amount of bleeding with debridement: Mild Bleeding Controlled with: Pressure Patient tolerated procedure well Assessment/Plan Assessment: 1. Nonhealing infected ulcer lower anterior abdominal wall with recent surgical closure on 02/26/19 and central abrasion. 2. 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 3. Abdominal panniculus. 4. Abdominal wall skin crease intertrigo. 5. [facility] use of [facility]. Plan: The incision has several areas that are opened whis is most likely from skin rubbing on skin which kept in the moisture leading to the abrasion. Will start Silver dressings to the opened areas. The rest of the incision can be covered with dry gauze to keep her skin from rubbing on skin which can lead to further moisture breakdown. . Her Prealbumin is 10.3. Encourage nutritional supplementation with protein to help the healing process. Until the drains are removed, continue Augmentin. Her operative culture was negative. Followup two weeks. She has a cardiology appointment next week. Continue abdominal binder. Code Visit [id number]
== END 2019-03-24 23:59 ==
LOC: WC 10:45
PROVIDERS: Family Provider Family Medicine; PCP Family Medicine; Referring Provider Internal Medicine; Visit Provider Surgery
DX: L98.491 Non-pressure chronic ulcer of skin of other sites limited to breakdown of skin (principal); L02.211 Cutaneous abscess of abdominal wall; E65 Localized adiposity; L30.4 Erythema intertrigo; Z98.890 Other specified postprocedural states; B96.4 Proteus (mirabilis) (morganii) as the cause of diseases classified elsewhere; D50.0 Iron deficiency anemia secondary to blood loss (chronic)
CPT/HCPCS: 11042; 11045; 36415; 80048; 85025; 97597; 97598; 99213; G0463

== ENCOUNTER → 2019-03-30 04:00 | Outpatient (REF) | payer MEDICARE, OTHER, SELFPAY ==
[2019-03-25 00:34] VITALS: BMI 27.8
[2019-03-30 07:42] LABS: Absolute Lymphocyte Count 1.17 X10^3/uL (0.83-4.51); Absolute Neutrophil Count 3.9 X10^3/uL (2.0-7.7); Basophil# 0.03 X10^3/uL; Basophil% 0.5 % (0-1); Eosinophil# 0.23 X10^3/uL; Eosinophils% 3.7 % (0-5); Hematocrit 31.1 % (37-47); Hemoglobin 9.9 g/dL (12.0-15.0); Lymphocyte # 1.17 X10^3/ul (4.0); Mean Corp Hgb Conc 31.8 g/dL (32-36); Mean Corpuscular Hgb 30.6 pg (27.0-32.0); Monocyte# 0.79 X10^3/uL; Monocyte% 12.8 % (0-10); NRBC Flagged by Analyzer 0 % (0-5); Neutrophil # 3.91 X10^3/uL (2.7-7.7); Neutrophil % 63.7 % (47-70); Platelet Count 199 K/mm3 (150-450); RBC Distribution Width SD 53.1 fl (35.1-43.9); Red Blood Count 3.24 M/mm3 (4.2-5.4); White Blood Count 6.2 K/mm3 (4.4-11.0)
[2019-03-30 08:04] LABS: Anion Gap 5 (5-15); BUN 54 mg/dL (7-18); BUN/Creat Ratio 66.2 RATIO (10-20); Calcium,Total 9.1 mg/dL (8.5-10.1); Chloride 106 mmol/L (98-107); Creatinine, Serum 0.82 mg/dL (0.55-1.02); EST Glomerular Filtration Rate 72 mL/min (>60); Est Glom Filt Rate - Afr Amer 87 mL/min (>60); Glucose 90 mg/dL (74-106); Potassium 4.5 mmol/L (3.5-5.1); Sodium Level 139 mmol/L (136-145)
[2019-03-30 10:34] VITALS: BMI 30.2
== END ==
LOC: OLS.ACH 04:00
PROVIDERS: Family Provider Family Medicine; PCP Family Medicine; Visit Provider Family Medicine
DX: S31.103D Unspecified open wound of abdominal wall, right lower quadrant without penetration into peritoneal cavity, subsequent encounter (principal)
CPT/HCPCS: 36415; 80048; 80076; 82607; 82728; 82746; 83540; 83550; 83615; 85025

== ENCOUNTER → 2019-04-06 05:00 | Outpatient (REF) | payer MEDICARE, OTHER, SELFPAY ==
[2019-03-30 10:34] VITALS: BMI 30.2
[2019-04-06 07:30] LABS: Absolute Lymphocyte Count 1.17 X10^3/uL (0.83-4.51); Absolute Neutrophil Count 2.2 X10^3/uL (2.0-7.7); Basophil# 0.03 X10^3/uL; Basophil% 0.7 % (0-1); Eosinophil# 0.26 X10^3/uL; Eosinophils% 6.1 % (0-5); Hematocrit 31.9 % (37-47); Hemoglobin 10.2 g/dL (12.0-15.0); Lymphocyte # 1.17 X10^3/ul (4.0); Lymphocyte % 27.3 % (19-41); Mean Corpuscular Hgb 30.7 pg (27.0-32.0); Mean Corpuscular Volume 96.1 fL (81-99); Mean Platelet Vol. 10.7 fl (6.2-12.0); Monocyte# 0.63 X10^3/uL; Monocyte% 14.7 % (0-10); NRBC Flagged by Analyzer 0 % (0-5); Neutrophil # 2.19 X10^3/uL (2.7-7.7); Platelet Count 200 K/mm3 (150-450); RBC Distribution Width CV 14.6 % (11.6-14.6); RBC Distribution Width SD 51.6 fl (35.1-43.9); Red Blood Count 3.32 M/mm3 (4.2-5.4); White Blood Count 4.3 K/mm3 (4.4-11.0)
[2019-04-06 07:35] LABS: Anion Gap 2 (5-15); BUN 48 mg/dL (7-18); BUN/Creat Ratio 63.4 RATIO (10-20); Calcium,Total 9.5 mg/dL (8.5-10.1); Chloride 107 mmol/L (98-107); Creatinine, Serum 0.76 mg/dL (0.55-1.02); EST Glomerular Filtration Rate 78 mL/min (>60); Est Glom Filt Rate - Afr Amer 95 mL/min (>60); Glucose 78 mg/dL (74-106); Sodium Level 140 mmol/L (136-145)
[2019-04-06 10:42] VITALS: BMI 30.2
== END ==
LOC: OLS.ACH 05:00
PROVIDERS: Family Provider Family Medicine; PCP Family Medicine; Visit Provider Family Medicine
DX: S31.103D Unspecified open wound of abdominal wall, right lower quadrant without penetration into peritoneal cavity, subsequent encounter (principal); L98.492 Non-pressure chronic ulcer of skin of other sites with fat layer exposed; L30.4 Erythema intertrigo; E65 Localized adiposity; Z98.890 Other specified postprocedural states
CPT/HCPCS: 11042; 11045; 36415; 80048; 85025

== ENCOUNTER → 2019-04-20 05:00 | Outpatient (REF) | payer MEDICARE, OTHER, SELFPAY ==
[2019-04-06 10:42] VITALS: BMI 30.2
[2019-04-20 08:17] LABS: Absolute Neutrophil Count 2.4 X10^3/uL (2.0-7.7); Basophil# 0.02 X10^3/uL; Basophil% 0.4 % (0-1); Eosinophils% 6.6 % (0-5); Hematocrit 34.1 % (37-47); Hemoglobin 10.9 g/dL (12.0-15.0); Lymphocyte % 22.1 % (19-41); Mean Corpuscular Hgb 31.4 pg (27.0-32.0); Mean Corpuscular Volume 98.3 fL (81-99); Monocyte% 17.7 % (0-10); NRBC Flagged by Analyzer 0 % (0-5); Neutrophil # 2.39 X10^3/uL (2.7-7.7); Platelet Count 137 K/mm3 (150-450); RBC Distribution Width CV 14.8 % (11.6-14.6); RBC Distribution Width SD 53.7 fl (35.1-43.9); Red Blood Count 3.47 M/mm3 (4.2-5.4); White Blood Count 4.5 K/mm3 (4.4-11.0)
[2019-04-20 08:40] LABS: Anion Gap 3 (5-15); BUN 65 mg/dL (7-18); BUN/Creat Ratio 66.5 RATIO (10-20); Calcium,Total 9.3 mg/dL (8.5-10.1); Chloride 105 mmol/L (98-107); Creatinine, Serum 0.98 mg/dL (0.55-1.02); EST Glomerular Filtration Rate 58 mL/min (>60); Est Glom Filt Rate - Afr Amer 70 mL/min (>60); Glucose 85 mg/dL (74-106); Sodium Level 140 mmol/L (136-145)
[2019-04-20 10:26] VITALS: BMI 30.2
== END ==
LOC: OLS.ACH 05:00
PROVIDERS: PCP Family Medicine; Visit Provider Family Medicine
DX: S31.103D Unspecified open wound of abdominal wall, right lower quadrant without penetration into peritoneal cavity, subsequent encounter (principal); L98.492 Non-pressure chronic ulcer of skin of other sites with fat layer exposed; L30.4 Erythema intertrigo; E65 Localized adiposity; Z98.890 Other specified postprocedural states; L98.491 Non-pressure chronic ulcer of skin of other sites limited to breakdown of skin
CPT/HCPCS: 11042; 36415; 80048; 85025

== ENCOUNTER 2019-04-20 10:30 | Outpatient (RCR) | payer MEDICARE, OTHER, SELFPAY ==
[2019-03-25 00:34] VITALS: BP 126/69; PULSE 90; RESP 16; TEMP 36.1; BMI 27.8
[2019-03-30 10:34] VITALS: BMI 30.2
[2019-04-06 10:42] VITALS: BP 152/77; PULSE 88; RESP 20; TEMP 36.7; BMI 30.2
--- NOTE | 2019-04-06 15:20 | PN.PCM_ITS ---
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 History of Wound: Surgery 02/26/19 - Surgical preparation lower anterior abdominal wall with excisional debridement nonhealing infected ulcer (240 cm2) and 48 cm complex secondary wound closure. Wound care - Silver to the areas where the incision has and dry gauze along the entire suture line daily or every other day if there is not much drainage. Operative culture - negative. Was discharged on Augmentin until the drains are removed. Prealbumin from 02/25/19 was 10.3. Encourage nutritional supplementation with protein to help the healing process. Surgery 01/05/19 - 1. Surgical preparation lower anterior abdominal wall with excisional debridement skin, subcutaneous tissue, and fascia for necrotizing soft tissue infection abscess ulcers (588 cm2). 2. Abdominal panniculectomy. Operative culture from 01/05/19 - Proteus mirabilis. Preop culture showed Proteus mirabilis, MRSE, and Anaerobic cocci. She was placed on Augmentin and Doxycycline and finished them. Today she denies fever. Her appetite is ok. Progress of Wound: Recent surgical wound closure on 02/26/19 with central abrasion. She now has several areas that are opened along the incision line. - Physical Exam Vital Signs Temp Pulse Resp BP 98.1 F 88 20 H 152/77 H 04/06/19 10:42 04/06/19 10:42 04/06/19 10:42 04/06/19 10:42 General: Alert, Oriented x3, Cooperative HEENT: Atraumatic Oral: Moist Mucosa Lungs: Normal air movement Cardiovascular: Regular rate Abdomen: Soft Extremities: Capillary Refill Less than 3 Seconds Skin: Ulcer/ Wound - Lower abdominal incision with several openings. Will group them together to make clusters for measurment purposes Wound Measurements and Assessment WC - Nurse 1 - General Ulcer Measurement Start: 04/06/19 10:37 Freq: Status: Active Protocol: Activity Type Activity Date Activity User E-Sign Co-Sign Detail Recorded Client Recorded Date Recorded By Document 04/06/19 10:42 DL [id number] 04/06/19 10:50 DL 04/06/19 10:42 Wound Center Nurse 1 [Ulcer Assessment] #6 right lower abd cluster x3. -Current Size (cm) - Length 0.7 -Current Size (cm) - Width 46 -Current Size (cm) - Depth 0.2 -Total Square Cm 32.2 -Photo Taken No -Exudate Amt Small -Exudate Type Serosanguineous -Wound Margin Distinct, Outline Attached -Granulation Amt Small (1-33%) -Granulation Quality [place] -Necrosis Amt Large (67-100%) -Necrotic Tissue Type Adherent Slough -Structure Exposed N/A -Texture (Shanita-wound Skin Appearance) Scarring -Moisture (Shanita-wound Skin Appearance No Abnormality ) -Color (Shanita-wound Skin Appearance) No Abnormality -Temperature (Shanita-wound Skin No Abnormality Appearance) (Pt Warm) -Tenderness on Palpation (Shanita-wound No Skin Appearance) -Ulcer Cleansing Wound Cleanser -Foul Odor after Cleansing No -Anesthetic Used 5% Lidocaine Gel WC - Nurse 2 - General Ulcer CM Notes Start: 04/06/19 10:37 Freq: Status: Active Protocol: Activity Type Activity Date Activity User E-Sign Co-Sign Detail Recorded Client Recorded Date Recorded By Document 04/06/19 11:28 [email or web address] [id number] 04/06/19 11:38 04/06/19 11:28 Wound Center Nurse 2 [Procedure/Treatment] 7-left side abdomen x 2 -Time 11:35 -Correct Patient Yes -Correct Side, Site, Position Yes -Correct Procedure Yes -Procedure Performed Yes -Type of Procedure Debridement -Clinical Debridement Subcutaneous -Post Debridement Size (cm) - Length 16.0 -Post Debridement Size (cm) - Width 1.0 -Post Debridement Size (cm) - Depth 0.5 -Total Square Cm 16.00 -Wound/Ulcer Outcome Not Healed -Ulcer Cleansing Rinsed/ Irrigated with Saline -Foul Odor after Cleansing No -Bioengineered Tissue No -Bleeding Controlled with Pressure -Offloading No -Treatment Response Procedure Tolerated Well #6 right lower abd cluster x3. -Time 11:28 -Correct Patient Yes -Correct Side, Site, Position Yes -Correct Procedure Yes -Procedure Performed Yes -Type of Procedure Debridement -Clinical Debridement Subcutaneous -Post Debridement Size (cm) - Length 0.6 -Post Debridement Size (cm) - Width 23.0 -Post Debridement Size (cm) - Depth 0.4 -Total Square Cm 13.80 -Wound/Ulcer Outcome Not Healed -Ulcer Cleansing Rinsed/ Irrigated with Saline -Foul Odor after Cleansing No -Bioengineered Tissue No -Bleeding Controlled with Pressure -Offloading No -Treatment Response Procedure Tolerated Well [See Physician Procedure note for Specifics] Pain Scale: 0-10 Numeric [Pain] -Is Patient Pain Free? Yes Musculoskeletal: Tenderness - she has a hx of arthritis Neurological: Neuro grossly intact Debridement Note Post-Debridement Measurements/Treatment WC - Nurse 2 - General Ulcer CM Notes Start: 04/06/19 10:37 Freq: Status: Active Protocol: Activity Type Activity Date Activity User E-Sign Co-Sign Detail Recorded Client Recorded Date Recorded By Document 04/06/19 11:28 ROMI [id number] 04/06/19 11:38 ROMI 04/06/19 11:28 Wound Center Nurse 2 7-left side abdomen x 2 -Time 11:35 -Correct Patient Yes -Correct Side, Site, Position Yes -Correct Procedure Yes -Procedure Performed Yes -Type of Procedure Debridement -Clinical Debridement Subcutaneous -Post Debridement Size (cm) - Length 16.0 -Post Debridement Size (cm) - Width 1.0 -Post Debridement Size (cm) - Depth 0.5 -Total Square Cm 16.00 -Wound/Ulcer Outcome Not Healed -Ulcer Cleansing Rinsed/ Irrigated with Saline -Foul Odor after Cleansing No -Bioengineered Tissue No -Bleeding Controlled with Pressure -Offloading No -Treatment Response Procedure Tolerated Well #6 right lower abd cluster x3. -Time 11:28 -Correct Patient Yes -Correct Side, Site, Position Yes -Correct Procedure Yes -Procedure Performed Yes -Type of Procedure Debridement -Clinical Debridement Subcutaneous -Post Debridement Size (cm) - Length 0.6 -Post Debridement Size (cm) - Width 23.0 -Post Debridement Size (cm) - Depth 0.4 -Total Square Cm 13.80 -Wound/Ulcer Outcome Not Healed -Ulcer Cleansing Rinsed/ Irrigated with Saline -Foul Odor after Cleansing No -Bioengineered Tissue No -Bleeding Controlled with Pressure -Offloading No -Treatment Response Procedure Tolerated Well Pain Scale: 0-10 Numeric Is Patient Pain Free? Yes Wound debrided: right lower abdominal ulcer cluster Type of Debridement: Excisional debridement Anesthesia Used: 5% Lidocaine Gel Depth: Down to and including healthy tissue, in the subcutaneous layer Percentage of wound debrided: 100 Instrument Used: 3mm curette Tissue Removed: subcutaneous tissue and slough Severity: Fat Layer Exposed Amount of bleeding with debridement: Mild Bleeding Controlled with: Pressure Patient tolerated procedure well - Additional Wound Wound debrided: left lower abdominal ulcer cluster Laterality: Left Type of Debridement: Excisional debridement Anesthesia Used: 5% Lidocaine Gel Depth: Down to and including healthy tissue Percentage of wound debrided: 100 Instrument Used: 3mm curette Tissue Removed: subcutaneous tissue and slough Severity: Fat Layer Exposed Amount of bleeding with debridement: Mild Bleeding Controlled with: Pressure Patient tolerated procedure: Patient tolerated procedure well Assessment/Plan Active Problems (Last Reviewed 03/30/19 @ 10:46 by Luz Andino) 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 Nonhealing infected ulcer lower anterior abdominal wall with recent surgical closure on 02/26/19 and central abrasion. 2. 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 3. Abdominal panniculus. 4. Abdominal wall skin crease intertrigo. 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 Plan: The incision has several areas that are opened whis is most likely from skin rubbing on skin which kept in the moisture leading to the abrasion. Wound care: Silver dressings to the opened areas. The rest of the incision can be covered with dry gauze to keep her skin from rubbing on skin which can lead to further moisture breakdown. Her Prealbumin is 10.3. Encourage nutritional supplementation with protein to help the healing process. She is complaining that she is having a difficult time eating her food due to all of her supplements. I phoned and spoke to her nurse at the [facility] home where she is placed and she states she is getting 3 ensure shakes per day and 2 hanna drinks. We discussed this and she will talk with the machine ceramic coater there to see if we can cut back on some of her supplements so she is able to eat regular food and not be so full. Her operative culture was negative. Followup two weeks. Continue abdominal binder. Code Visit [id number]: 22480 Global Visit
[2019-04-20 10:26] VITALS: BP 141/74; PULSE 82; RESP 16; TEMP 36.6; BMI 30.2
--- NOTE | 2019-04-20 13:24 | PN.PCM_ITS ---
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 History of Wound: Surgery 02/26/19 - Surgical preparation lower anterior abdominal wall with excisional debridement nonhealing infected ulcer (240 cm2) and 48 cm complex secondary wound closure. Wound care - Collagen hydrogel to the areas where the incision has and dry gauze along the entire suture line daily. Operative culture - negative. Was discharged on Augmentin until the drains are removed. Prealbumin from 02/25/19 was 10.3. Encourage nutritional supplementation with protein to help the healing process. Surgery 01/05/19 - 1. Surgical preparation lower anterior abdominal wall with excisional debridement skin, subcutaneous tissue, and fascia for necrotizing soft tissue infection abscess ulcers (588 cm2). 2. Abdominal panniculectomy. Operative culture from 01/05/19 - Proteus mirabilis. Preop culture showed Proteus mirabilis, MRSE, and Anaerobic cocci. She was placed on Augmentin and Doxycycline and finished them. Today she denies fever. Her appetite is ok. Progress of Wound: Recent surgical wound closure on 02/26/19 with central abrasion. She now has several areas that are opened along the incision line which are improving. - Physical Exam Vital Signs Temp Pulse Resp BP 98 F 82 16 141/74 H 04/20/19 10:26 04/20/19 10:26 04/20/19 10:26 04/20/19 10:26 General: Alert, Oriented x3, Cooperative HEENT: Atraumatic Oral: Moist Mucosa Lungs: Normal air movement Cardiovascular: Regular rate Abdomen: Soft Extremities: No edema, Capillary Refill Less than 3 Seconds Skin: Ulcer/ Wound - lower abdomen with tow opened areas in the central aspect of the incision Wound Measurements and Assessment WC - Nurse 1 - General Ulcer Measurement Start: 04/06/19 10:37 Freq: Status: Active Protocol: Activity Type Activity Date Activity User E-Sign Co-Sign Detail Recorded Client Recorded Date Recorded By Document 04/20/19 10:26 [facility] [id number] 04/20/19 10:37 [facility] 04/20/19 10:26 Wound Center Nurse 1 [Ulcer Assessment] 7-left side abdomen x 2 -Combined with other wound No -Current Size (cm) - Length 23 -Current Size (cm) - Width 0.5 -Current Size (cm) - Depth 0.2 -Total Square Cm 11.5 -Photo Taken No -Epithelialization Medium 34-66% -Tunneling No -Undermining/Tunneling No -Circular Undermining No -Exudate Amt Small -Exudate Type Serosanguineous -Wound Margin Distinct, Outline Attached -Granulation Amt Large (67-100%) -Granulation Quality Red -Slough/Fibrin Yes -Necrosis Amt Small (1-33%) -Necrotic Tissue Type Adherent Slough -Texture (Shanita-wound Skin Appearance) Assessed, Scarring -Moisture (Shanita-wound Skin Appearance Assessed,Dry/ ) Scaly -Color (Shanita-wound Skin Appearance) Assessed -Temperature (Shanita-wound Skin No Abnormality Appearance) (Pt Warm) -Tenderness on Palpation (Shanita-wound No Skin Appearance) -Ulcer Cleansing soapy water -Foul Odor after Cleansing No -Anesthetic Used 5% Lidocaine Gel #6 right lower abd cluster x3. -Combined with other wound No -Current Size (cm) - Length 0.1 -Current Size (cm) - Width 0.1 -Current Size (cm) - Depth 0.1 -Total Square Cm 0.01 -Epithelialization Large 67-100% -Tunneling No -Undermining/Tunneling No -Circular Undermining No -Texture (Shanita-wound Skin Appearance) Assessed, Scarring -Moisture (Shanita-wound Skin Appearance Assessed,Dry/ ) Scaly -Color (Shanita-wound Skin Appearance) Assessed -Temperature (Shanita-wound Skin No Abnormality Appearance) (Pt Warm) -Tenderness on Palpation (Shanita-wound No Skin Appearance) -Ulcer Cleansing soapy water -Foul Odor after Cleansing No -Anesthetic Used 5% Lidocaine Gel WC - Nurse 2 - General Ulcer CM Notes Start: 04/06/19 10:37 Freq: Status: Active Protocol: Activity Type Activity Date Activity User E-Sign Co-Sign Detail Recorded Client Recorded Date Recorded By Document 04/20/19 10:55 [id number] 04/20/19 10:58 04/20/19 10:55 Wound Center Nurse 2 [Procedure/Treatment] 7-left side abdomen x 2 -Time 10:55 -Correct Patient Yes -Correct Side, Site, Position Yes -Correct Procedure Yes -Procedure Performed Yes -Type of Procedure Debridement -Clinical Debridement Subcutaneous -Post Debridement Size (cm) - Length 0.5 -Post Debridement Size (cm) - Width 11.5 -Post Debridement Size (cm) - Depth 0.3 -Total Square Cm 5.75 -Wound/Ulcer Outcome Not Healed -Ulcer Cleansing Rinsed/ Irrigated with Saline -Foul Odor after Cleansing No -Bioengineered Tissue No -Bleeding Controlled with Pressure -Offloading No -Treatment Response Procedure Tolerated Well #6 right lower abd cluster x3. -Correct Patient No -Correct Side, Site, Position No -Correct Procedure No -Procedure Performed No -Post Debridement Size (cm) - Length 0 -Post Debridement Size (cm) - Width 0 -Post Debridement Size (cm) - Depth 0 -Total Square Cm 0 -Wound/Ulcer Outcome Healed- Epithelialized [See Physician Procedure note for Specifics] Pain Scale: 0-10 Numeric [Pain] -Is Patient Pain Free? Yes Musculoskeletal: No Muscle Wasting Neurological: Neuro grossly intact Psych/Mental Status: Normal Affect, Appropriate Debridement Note Post-Debridement Measurements/Treatment WC - Nurse 2 - General Ulcer CM Notes Start: 04/06/19 10:37 Freq: Status: Active Protocol: Activity Type Activity Date Activity User E-Sign Co-Sign Detail Recorded Client Recorded Date Recorded By Document 04/06/19 11:28 [id number] 04/06/19 11:38 Document 04/20/19 10:55 [id number] 04/20/19 10:58 04/06/19 04/20/19 11:28 10:55 Wound Center Nurse 2 7-left side abdomen x 2 -Time 11:35 10:55 -Correct Patient Yes Yes -Correct Side, Site, Position Yes Yes -Correct Procedure Yes Yes -Procedure Performed Yes Yes -Type of Procedure Debridement Debridement -Clinical Debridement Subcutaneous Subcutaneous -Post Debridement Size (cm) - Length 16.0 0.5 -Post Debridement Size (cm) - Width 1.0 11.5 -Post Debridement Size (cm) - Depth 0.5 0.3 -Total Square Cm 16.00 5.75 -Wound/Ulcer Outcome Not Healed Not Healed -Ulcer Cleansing Rinsed/ Rinsed/ Irrigated with Irrigated with Saline Saline -Foul Odor after Cleansing No No -Bioengineered Tissue No No -Bleeding Controlled with Pressure Pressure -Offloading No No -Treatment Response Procedure Procedure Tolerated Well Tolerated Well #6 right lower abd cluster x3. -Time 11:28 -Correct Patient Yes No -Correct Side, Site, Position Yes No -Correct Procedure Yes No -Procedure Performed Yes No -Type of Procedure Debridement -Clinical Debridement Subcutaneous -Post Debridement Size (cm) - Length 0.6 0 -Post Debridement Size (cm) - Width 23.0 0 -Post Debridement Size (cm) - Depth 0.4 0 -Total Square Cm 13.80 0 -Wound/Ulcer Outcome Not Healed Healed- Epithelialized -Ulcer Cleansing Rinsed/ Irrigated with Saline -Foul Odor after Cleansing No -Bioengineered Tissue No -Bleeding Controlled with Pressure -Offloading No -Treatment Response Procedure Tolerated Well Pain Scale: 0-10 Numeric Is Patient Pain Free? Yes Yes Wound debrided: central lower abdominal incison with two opened areas Type of Debridement: Excisional debridement Anesthesia Used: 5% Lidocaine Gel Depth: Down to and including healthy tissue, in the subcutaneous layer Percentage of wound debrided: 100 Instrument Used: 3mm curette Tissue Removed: subcutaneous tissue and slough Severity: Limited To Skin Breakdown Amount of bleeding with debridement: Mild Bleeding Controlled with: Pressure Patient tolerated procedure well Assessment/Plan Assessment: 1. Nonhealing infected ulcer lower anterior abdominal wall with recent surgical closure on 02/26/19 and central abrasion. 2. 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 3. Abdominal panniculus. 4. Abdominal wall skin crease intertrigo. 5. 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 Plan: The incision now only has a couple areas that are opened whis is most likely from skin rubbing on skin which kept in the moisture leading to the abrasion. Wound care: Collagen hydrogel to the opened areas. The rest of the incision can be covered with dry gauze to keep her skin from rubbing on skin which can lead to further moisture breakdown. Her Prealbumin is 10.3. Encourage nutritional supplementation with protein to help the healing process. She is complaining that she is having a difficult time eating her food due to all of her supplements. I phoned and spoke to her nurse [facility] and she states she is getting 3 ensure shakes per day and 2 hanna drinks. We discussed this and she will talk with the welder pipe making there to see if we can cut back on some of her supplements so she is able to eat regular food and not be so full. Her operative culture was negative. Followup two weeks. Continue abdominal binder. Code Visit [id number]: [id number] Global Visit
== END 2019-04-24 23:59 ==
LOC: WC 10:30
PROVIDERS: Family Provider Family Medicine; PCP Family Medicine; Referring Provider Internal Medicine; Visit Provider Surgery
DX: L98.492 Non-pressure chronic ulcer of skin of other sites with fat layer exposed (principal); L30.4 Erythema intertrigo; E65 Localized adiposity; Z98.890 Other specified postprocedural states; L98.491 Non-pressure chronic ulcer of skin of other sites limited to breakdown of skin
CPT/HCPCS: 11042; 11045

== ENCOUNTER → 2019-04-27 05:00 | Outpatient (REF) | payer MEDICARE, OTHER, SELFPAY ==
[2019-04-20 10:26] VITALS: BMI 30.2
[2019-04-27 08:22] LABS: Mean Corp Hgb Conc 31.4 g/dL (32-36); Mean Corpuscular Hgb 30.9 pg (27.0-32.0); Mean Corpuscular Volume 98.3 fL (81-99); Mean Platelet Vol. 10.7 fl (6.2-12.0); Platelet Count 141 K/mm3 (150-450); RBC Distribution Width CV 14.3 % (11.6-14.6); RBC Distribution Width SD 51.8 fl (35.1-43.9); Red Blood Count 3.56 M/mm3 (4.2-5.4); White Blood Count 3.9 K/mm3 (4.4-11.0)
[2019-04-27 08:39] LABS: Anion Gap 4 (5-15); BUN 38 mg/dL (7-18); Calcium,Total 9.1 mg/dL (8.5-10.1); Chloride 106 mmol/L (98-107); Creatinine, Serum 0.83 mg/dL (0.55-1.02); EST Glomerular Filtration Rate 71 mL/min (>60); Est Glom Filt Rate - Afr Amer 85 mL/min (>60); Glucose 77 mg/dL (74-106); Potassium 4.3 mmol/L (3.5-5.1); Sodium Level 139 mmol/L (136-145)
== END ==
LOC: OLS.ACH 05:00
PROVIDERS: PCP Family Medicine; Visit Provider Family Medicine
DX: S31.103D Unspecified open wound of abdominal wall, right lower quadrant without penetration into peritoneal cavity, subsequent encounter (principal); I10 Essential (primary) hypertension
CPT/HCPCS: 36415; 80048; 85027

== ENCOUNTER → 2019-05-04 05:00 | Outpatient (REF) | payer MEDICARE, OTHER, SELFPAY ==
[2019-04-20 10:26] VITALS: BMI 30.2
[2019-05-04 07:52] LABS: Absolute Neutrophil Count 2.4 X10^3/uL (2.0-7.7); Basophil# 0.02 X10^3/uL; Basophil% 0.4 % (0-1); Eosinophil# 0.29 X10^3/uL; Eosinophils% 6.5 % (0-5); Hematocrit 35.1 % (37-47); Hemoglobin 11.1 g/dL (12.0-15.0); Lymphocyte % 24.7 % (19-41); Mean Corp Hgb Conc 31.6 g/dL (32-36); Mean Corpuscular Hgb 30.8 pg (27.0-32.0); Mean Corpuscular Volume 97.5 fL (81-99); Mean Platelet Vol. 10.4 fl (6.2-12.0); Monocyte# 0.65 X10^3/uL; Monocyte% 14.6 % (0-10); NRBC Flagged by Analyzer 0 % (0-5); Neutrophil # 2.39 X10^3/uL (2.7-7.7); Neutrophil % 53.6 % (47-70); Platelet Count 128 K/mm3 (150-450); RBC Distribution Width CV 13.8 % (11.6-14.6); RBC Distribution Width SD 49.3 fl (35.1-43.9); White Blood Count 4.5 K/mm3 (4.4-11.0)
[2019-05-04 08:16] LABS: Anion Gap 3 (5-15); BUN 34 mg/dL (7-18); BUN/Creat Ratio 37.9 RATIO (10-20); Calcium,Total 9.2 mg/dL (8.5-10.1); Chloride 104 mmol/L (98-107); EST Glomerular Filtration Rate 64 mL/min (>60); Est Glom Filt Rate - Afr Amer 78 mL/min (>60); Glucose 82 mg/dL (74-106); Potassium 4.4 mmol/L (3.5-5.1); Sodium Level 138 mmol/L (136-145)
[2019-05-04 10:29] VITALS: BMI 30.2
== END ==
LOC: OLS.ACH 05:00
PROVIDERS: PCP Family Medicine; Visit Provider Family Medicine
DX: S31.103D Unspecified open wound of abdominal wall, right lower quadrant without penetration into peritoneal cavity, subsequent encounter (principal); L98.491 Non-pressure chronic ulcer of skin of other sites limited to breakdown of skin; L30.4 Erythema intertrigo; E65 Localized adiposity
CPT/HCPCS: 11042; 36415; 80048; 85025

== ENCOUNTER → 2019-05-11 04:00 | Outpatient (REF) | payer MEDICARE, OTHER, SELFPAY ==
[2019-05-04 10:29] VITALS: BMI 30.2
[2019-05-11 09:50] LABS: Absolute Lymphocyte Count 0.94 X10^3/uL (0.83-4.51); Absolute Neutrophil Count 2.7 X10^3/uL (2.0-7.7); Basophil# 0.01 X10^3/uL; Basophil% 0.2 % (0-1); Eosinophil# 0.24 X10^3/uL; Eosinophils% 5.4 % (0-5); Hematocrit 37.7 % (37-47); Hemoglobin 12.3 g/dL (12.0-15.0); Lymphocyte # 0.94 X10^3/ul (4.0); Lymphocyte % 21.3 % (19-41); Mean Corp Hgb Conc 32.6 g/dL (32-36); Mean Corpuscular Hgb 31.8 pg (27.0-32.0); Mean Corpuscular Volume 97.4 fL (81-99); Mean Platelet Vol. 10.5 fl (6.2-12.0); Monocyte# 0.55 X10^3/uL; Monocyte% 12.5 % (0-10); NRBC Flagged by Analyzer 0 % (0-5); Neutrophil # 2.66 X10^3/uL (2.7-7.7); Neutrophil % 60.4 % (47-70); Platelet Count 117 K/mm3 (150-450); RBC Distribution Width CV 13.3 % (11.6-14.6); RBC Distribution Width SD 47.8 fl (35.1-43.9); Red Blood Count 3.87 M/mm3 (4.2-5.4); White Blood Count 4.4 K/mm3 (4.4-11.0)
[2019-05-11 09:56] LABS: Anion Gap 4 (5-15); BUN 28 mg/dL (7-18); BUN/Creat Ratio 32.6 RATIO (10-20); Calcium,Total 9.4 mg/dL (8.5-10.1); Chloride 109 mmol/L (98-107); Creatinine, Serum 0.86 mg/dL (0.55-1.02); EST Glomerular Filtration Rate 68 mL/min (>60); Est Glom Filt Rate - Afr Amer 82 mL/min (>60); Glucose 77 mg/dL (74-106); Potassium 4.4 mmol/L (3.5-5.1); Sodium Level 142 mmol/L (136-145)
== END ==
LOC: OLS.ACH 04:00
PROVIDERS: PCP Family Medicine; Visit Provider Family Medicine
DX: S31.103D Unspecified open wound of abdominal wall, right lower quadrant without penetration into peritoneal cavity, subsequent encounter (principal)
CPT/HCPCS: 36415; 80048; 85025

== ENCOUNTER → 2019-05-14 05:00 | Outpatient (REF) | payer MEDICARE, OTHER, SELFPAY ==
[2019-05-04 10:29] VITALS: BMI 30.2
[2019-05-14 08:09] LABS: Anion Gap 4 (5-15); BUN 24 mg/dL (7-18); BUN/Creat Ratio 25.4 RATIO (10-20); Calcium,Total 9.2 mg/dL (8.5-10.1); Chloride 107 mmol/L (98-107); Creatinine, Serum 0.94 mg/dL (0.55-1.02); EST Glomerular Filtration Rate 61 mL/min (>60); Est Glom Filt Rate - Afr Amer 73 mL/min (>60); Glucose 76 mg/dL (74-106); Potassium 4.4 mmol/L (3.5-5.1); Sodium Level 140 mmol/L (136-145)
== END ==
LOC: OLS.ACH 05:00
PROVIDERS: PCP Family Medicine; Visit Provider Family Medicine
DX: I10 Essential (primary) hypertension (principal)
CPT/HCPCS: 36415; 80048

== ENCOUNTER → 2019-05-18 04:00 | Outpatient (REF) | payer MEDICARE, OTHER, SELFPAY ==
[2019-05-04 10:29] VITALS: BMI 30.2
[2019-05-18 08:16] LABS: Absolute Lymphocyte Count 1.03 X10^3/uL (0.83-4.51); Absolute Neutrophil Count 2.7 X10^3/uL (2.0-7.7); Basophil# 0.01 X10^3/uL; Basophil% 0.2 % (0-1); Eosinophil# 0.22 X10^3/uL; Eosinophils% 4.9 % (0-5); Hematocrit 34.5 % (37-47); Hemoglobin 11.3 g/dL (12.0-15.0); Lymphocyte # 1.03 X10^3/ul (4.0); Lymphocyte % 22.8 % (19-41); Mean Corp Hgb Conc 32.8 g/dL (32-36); Mean Corpuscular Hgb 31.8 pg (27.0-32.0); Mean Corpuscular Volume 97.2 fL (81-99); Mean Platelet Vol. 10.3 fl (6.2-12.0); Monocyte# 0.59 X10^3/uL; Monocyte% 13.1 % (0-10); NRBC Flagged by Analyzer 0 % (0-5); Neutrophil # 2.66 X10^3/uL (2.7-7.7); Neutrophil % 58.8 % (47-70); Platelet Count 122 K/mm3 (150-450); RBC Distribution Width CV 12.9 % (11.6-14.6); RBC Distribution Width SD 46.2 fl (35.1-43.9); Red Blood Count 3.55 M/mm3 (4.2-5.4); White Blood Count 4.5 K/mm3 (4.4-11.0)
[2019-05-18 08:36] LABS: Anion Gap 5 (5-15); BUN 22 mg/dL (7-18); BUN/Creat Ratio 27.9 RATIO (10-20); Chloride 106 mmol/L (98-107); Creatinine, Serum 0.79 mg/dL (0.55-1.02); EST Glomerular Filtration Rate 74 mL/min (>60); Est Glom Filt Rate - Afr Amer 90 mL/min (>60); Glucose 81 mg/dL (74-106); Potassium 4.1 mmol/L (3.5-5.1); Sodium Level 141 mmol/L (136-145)
[2019-05-18 10:23] VITALS: BMI 30.2
== END ==
LOC: OLS.ACH 04:00
PROVIDERS: PCP Family Medicine; Visit Provider Family Medicine
DX: S31.103D Unspecified open wound of abdominal wall, right lower quadrant without penetration into peritoneal cavity, subsequent encounter (principal); L98.491 Non-pressure chronic ulcer of skin of other sites limited to breakdown of skin; L30.4 Erythema intertrigo; E65 Localized adiposity; Z98.890 Other specified postprocedural states
CPT/HCPCS: 11042; 36415; 80048; 85025

== ENCOUNTER 2019-05-18 10:30 | Outpatient (RCR) | payer MEDICARE, OTHER, SELFPAY ==
[2019-04-25 00:36] VITALS: BP 141/74; PULSE 82; RESP 16; TEMP 36.6
[2019-05-04 10:29] VITALS: BP 153/68; PULSE 84; RESP 18; TEMP 36.6; BMI 30.2
--- NOTE | 2019-05-04 12:56 | PN.PCM_ITS ---
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 History of Wound: Surgery 02/26/19 - Surgical preparation lower anterior abdominal wall with excisional debridement nonhealing infected ulcer (240 cm2) and 48 cm complex secondary wound closure. Wound care - Collagen hydrogel to the remaining opened area where the incision has and dry gauze along the entire suture line daily. Operative culture - negative. Was discharged on Augmentin until the drains are removed. Prealbumin from 02/25/19 was 10.3. Encourage nutritional supplementation with protein to help the healing process. Surgery 01/05/19 - 1. Surgical preparation lower anterior abdominal wall with excisional debridement skin, subcutaneous tissue, and fascia for necrotizing soft tissue infection abscess ulcers (588 cm2). 2. Abdominal panniculectomy. Operative culture from 01/05/19 - Proteus mirabilis. Preop culture showed Proteus mirabilis, MRSE, and Anaerobic cocci. She was placed on Augmentin and Doxycycline and finished them. Today she denies fever. Her appetite is ok. Progress of Wound: Recent surgical wound closure on 02/26/19 with central abrasion. She now has one small area that is opened along the incision line. The other areas are now healed. - Physical Exam Vital Signs Temp Pulse Resp BP 97.8 F 84 18 153/68 H 05/04/19 10:29 05/04/19 10:29 05/04/19 10:29 05/04/19 10:29 General: Alert, Oriented x3, Cooperative, No apparent distress HEENT: Atraumatic Lungs: Normal air movement Cardiovascular: Regular rate Abdomen: Soft Extremities: Capillary Refill Less than 3 Seconds Skin: Ulcer/ Wound - one small opening remains in the center of the abdominal incision Wound Measurements and Assessment WC - Nurse 1 - General Ulcer Measurement Start: 05/04/19 10:25 Freq: Status: Active Protocol: Activity Type Activity Date Activity User E-Sign Co-Sign Detail Recorded Client Recorded Date Recorded By Document 05/04/19 10:29 RB [id number] 05/04/19 10:34 RB 05/04/19 10:29 Wound Center Nurse 1 [Ulcer Assessment] #5- LOWER ABDOMEN -Combined with other wound No -Current Size (cm) - Length 0.2 -Current Size (cm) - Width 0.7 -Current Size (cm) - Depth 0.1 -Total Square Cm 0.14 -Tunneling No -Undermining/Tunneling No -Circular Undermining No -Exudate Amt Small -Exudate Type Serosanguineous -Wound Margin Flat & Intact -Granulation Amt Medium (34-66%) -Granulation Quality [place] -Slough/Fibrin Yes -Necrosis Amt Small (1-33%) -Necrotic Tissue Type Adherent Slough -Structure Exposed N/A -Texture (Shanita-wound Skin Appearance) Assessed -Moisture (Shanita-wound Skin Appearance Assessed ) -Color (Shanita-wound Skin Appearance) Assessed -Temperature (Shanita-wound Skin No Abnormality Appearance) (Pt Warm) -Tenderness on Palpation (Shanita-wound No Skin Appearance) -Ulcer Cleansing Wound Cleanser -Foul Odor after Cleansing No -Anesthetic Used 4% Lidocaine Solution WC - Nurse 2 - General Ulcer CM Notes Start: 05/04/19 10:25 Freq: Status: Active Protocol: Activity Type Activity Date Activity User E-Sign Co-Sign Detail Recorded Client Recorded Date Recorded By Document 05/04/19 10:44 [id number] 05/04/19 10:45 05/04/19 10:44 Wound Center Nurse 2 [Procedure/Treatment] -Time 10:45 -Correct Patient Yes -Correct Side, Site, Position Yes -Correct Procedure Yes -Procedure Performed Yes -Type of Procedure Debridement -Clinical Debridement Subcutaneous -Post Debridement Size (cm) - Length 0.4 -Post Debridement Size (cm) - Width 0.5 -Post Debridement Size (cm) - Depth 0.1 -Total Square Cm 0.20 -Wound/Ulcer Outcome Not Healed -Ulcer Cleansing Rinsed/ Irrigated with Saline -Foul Odor after Cleansing No -Bioengineered Tissue No -Bleeding Controlled with Pressure -Offloading No -Treatment Response Procedure Tolerated Well [See Physician Procedure note for Specifics] Pain Scale: 0-10 Numeric [Pain] -Is Patient Pain Free? Yes Musculoskeletal: No Tenderness to Palpation of Joints or Extremities Neurological: Neuro grossly intact Psych/Mental Status: Normal Affect, Appropriate Debridement Note Post-Debridement Measurements/Treatment WC - Nurse 2 - General Ulcer CM Notes Start: 05/04/19 10:25 Freq: Status: Active Protocol: Activity Type Activity Date Activity User E-Sign Co-Sign Detail Recorded Client Recorded Date Recorded By Document 05/04/19 10:44 ROMI [id number] 05/04/19 10:45 ROMI 05/04/19 10:44 Wound Center Nurse 2 #5- LOWER ABDOMEN -Time 10:45 -Correct Patient Yes -Correct Side, Site, Position Yes -Correct Procedure Yes -Procedure Performed Yes -Type of Procedure Debridement -Clinical Debridement Subcutaneous -Post Debridement Size (cm) - Length 0.4 -Post Debridement Size (cm) - Width 0.5 -Post Debridement Size (cm) - Depth 0.1 -Total Square Cm 0.20 -Wound/Ulcer Outcome Not Healed -Ulcer Cleansing Rinsed/ Irrigated with Saline -Foul Odor after Cleansing No -Bioengineered Tissue No -Bleeding Controlled with Pressure -Offloading No -Treatment Response Procedure Tolerated Well Pain Scale: 0-10 Numeric Is Patient Pain Free? Yes Wound debrided: center of abdominal incision, small opening Type of Debridement: Excisional debridement Anesthesia Used: 5% Lidocaine Gel Depth: Down to and including healthy tissue, in the subcutaneous layer Percentage of wound debrided: 100 Instrument Used: 3mm curette Tissue Removed: subcutaneous tissue and slough Severity: Limited To Skin Breakdown Amount of bleeding with debridement: Mild Bleeding Controlled with: Pressure Patient tolerated procedure well Assessment/Plan Assessment: 1. Nonhealing infected ulcer lower anterior abdominal wall with recent surgical closure on 02/26/19 and central abrasion. 2. 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 3. Abdominal panniculus. 4. Abdominal wall skin crease intertrigo. 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 Plan: The incision now only has one small opened area that is opened this is most likely from skin rubbing on skin which kept in the moisture leading to the abrasion. Wound care: Collagen hydrogel to the opened areas. The rest of the incision can be covered with dry gauze to keep her skin from rubbing on skin which can lead to further moisture breakdown. Her Prealbumin is 10.3. Encourage nutritional supplementation with protein to help the healing process. She is complaining that she is having a difficult time eating her food due to all of her supplements. I phoned and spoke to her nurse at the [facility] home where she is placed and she states she is getting 3 ensure shakes per day and 2 hanna drinks. We discussed this and she will talk with the hat and cap drying room attendant there to see if we can cut back on some of her supplements so she is able to eat regular food and not be so full. Her operative culture was negative. Followup two weeks. Continue abdominal binder. Code Visit [id number]: [id number] Global Visit
[2019-05-18 10:23] VITALS: BP 157/63; PULSE 87; RESP 18; TEMP 36.6; BMI 30.2
--- NOTE | 2019-05-18 12:28 | PCM.WC.PN ---
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 History of Wound: Surgery 02/26/19 - Surgical preparation lower anterior abdominal wall with excisional debridement nonhealing infected ulcer (240 cm2) and 48 cm complex secondary wound closure. Wound care - Collagen hydrogel to the remaining opened area where the incision has and dry gauze along the entire suture line daily. She has a new spot today on the right side. She has a sore abscess area on her pubic area, encouraged warm compresses for 10 minutes several times per day to that area. Operative culture - negative. Was discharged on Augmentin until the drains are removed. Prealbumin from 02/25/19 was 10.3. Encourage nutritional supplementation with protein to help the healing process. Surgery 01/05/19 - 1. Surgical preparation lower anterior abdominal wall with excisional debridement skin, subcutaneous tissue, and fascia for necrotizing soft tissue infection abscess ulcers (588 cm2). 2. Abdominal panniculectomy. Operative culture from 01/05/19 - Proteus mirabilis. Preop culture showed Proteus mirabilis, MRSE, and Anaerobic cocci. She was placed on Augmentin and Doxycycline and finished them. Today she denies fever. Her appetite is ok. Progress of Wound: Recent surgical wound closure on 02/26/19 with central abrasion. She now has a couple small area that have opened along the incision line. The other areas are now healed. - Physical Exam Vital Signs Temp Pulse Resp BP 98 F 87 18 157/63 H 05/18/19 10:23 05/18/19 10:23 05/18/19 10:23 05/18/19 10:23 General: Alert, Oriented x3, Cooperative HEENT: Atraumatic Oral: Moist Mucosa Lungs: Normal air movement Cardiovascular: Regular rate Abdomen: Soft Extremities: Capillary Refill Less than 3 Seconds Skin: Ulcer/ Wound - lower abdominal incision with a couple opened areas that are slowly improving. She does have a redened area on her her pubic area that is mildly tender to palpation. Not opened, no drainage. Wound Measurements and Assessment WC - Nurse 1 - General Ulcer Measurement Start: 05/04/19 10:25 Freq: Status: Active Protocol: Activity Type Activity Date Activity User E-Sign Co-Sign Detail Recorded Client Recorded Date Recorded By Document 05/18/19 10:23 DL [id number] 05/18/19 10:30 DL 05/18/19 10:23 Wound Center Nurse 1 [Ulcer Assessment] #8 R Lower Abd -Current Size (cm) - Length 0.5 -Current Size (cm) - Width 0.9 -Current Size (cm) - Depth 0.3 -Total Square Cm 0.45 -Photo Taken Yes -Exudate Amt Small -Exudate Type Serosanguineous -Wound Margin Distinct, Outline Attached -Granulation Amt Large (67-100%) -Granulation Quality [place] -Necrosis Amt Small (1-33%) -Necrotic Tissue Type Adherent Slough -Structure Exposed N/A -Texture (Shanita-wound Skin Appearance) Scarring -Moisture (Shanita-wound Skin Appearance No Abnormality ) -Color (Shanita-wound Skin Appearance) No Abnormality -Temperature (Shanita-wound Skin No Abnormality Appearance) (Pt Warm) -Tenderness on Palpation (Shanita-wound No Skin Appearance) -Ulcer Cleansing Wound Cleanser -Foul Odor after Cleansing No -Anesthetic Used 5% Lidocaine Gel #5- LOWER ABDOMEN -Current Size (cm) - Length 0 -Current Size (cm) - Width 0 -Current Size (cm) - Depth 0 -Total Square Cm 0 -Photo Taken Yes -Exudate Amt None Present -Wound Margin Flat & Intact -Granulation Amt Large (67-100%) -Granulation Quality [place] -Necrosis Amt None Present (0 %) -Structure Exposed N/A -Texture (Shanita-wound Skin Appearance) Scarring -Moisture (Shanita-wound Skin Appearance No Abnormality ) -Color (Shanita-wound Skin Appearance) No Abnormality -Temperature (Shanita-wound Skin No Abnormality Appearance) (Pt Warm) -Tenderness on Palpation (Shanita-wound No Skin Appearance) -Ulcer Cleansing Rinsed/ Irrigated with Saline -Foul Odor after Cleansing No WC - Nurse 2 - General Ulcer CM Notes Start: 05/04/19 10:25 Freq: Status: Active Protocol: Activity Type Activity Date Activity User E-Sign Co-Sign Detail Recorded Client Recorded Date Recorded By Document 05/18/19 10:43 [id number] 05/18/19 10:44 05/18/19 10:43 Wound Center Nurse 2 [Procedure/Treatment] #8 R Lower Abd -Time 10:43 -Correct Patient Yes -Correct Side, Site, Position Yes -Correct Procedure Yes -Procedure Performed Yes -Type of Procedure Debridement -Clinical Debridement Subcutaneous -Post Debridement Size (cm) - Length 0.5 -Post Debridement Size (cm) - Width 0.5 -Post Debridement Size (cm) - Depth 0.1 -Total Square Cm 0.25 -Wound/Ulcer Outcome Not Healed -Ulcer Cleansing Rinsed/ Irrigated with Saline -Foul Odor after Cleansing No -Bioengineered Tissue No -Bleeding Controlled with Pressure -Offloading No -Treatment Response Procedure Tolerated Well #5- LOWER ABDOMEN -Correct Patient No -Correct Side, Site, Position No -Correct Procedure No -Procedure Performed No -Wound/Ulcer Outcome Healed- Epithelialized [See Physician Procedure note for Specifics] Pain Scale: 0-10 Numeric [Pain] -Is Patient Pain Free? Yes Musculoskeletal: No Tenderness to Palpation of Joints or Extremities Neurological: Neuro grossly intact Psych/Mental Status: Normal Affect Debridement Note Post-Debridement Measurements/Treatment WC - Nurse 2 - General Ulcer CM Notes Start: 05/04/19 10:25 Freq: Status: Active Protocol: Activity Type Activity Date Activity User E-Sign Co-Sign Detail Recorded Client Recorded Date Recorded By Document 05/04/19 10:44 [id number] 05/04/19 10:45 Document 05/18/19 10:43 [id number] 05/18/19 10:44 05/04/19 05/18/19 10:44 10:43 Wound Center Nurse 2 #8 R Lower Abd -Time 10:43 -Correct Patient Yes -Correct Side, Site, Position Yes -Correct Procedure Yes -Procedure Performed Yes -Type of Procedure Debridement -Clinical Debridement Subcutaneous -Post Debridement Size (cm) - Length 0.5 -Post Debridement Size (cm) - Width 0.5 -Post Debridement Size (cm) - Depth 0.1 -Total Square Cm 0.25 -Wound/Ulcer Outcome Not Healed -Ulcer Cleansing Rinsed/ Irrigated with Saline -Foul Odor after Cleansing No -Bioengineered Tissue No -Bleeding Controlled with Pressure -Offloading No -Treatment Response Procedure Tolerated Well #5- LOWER ABDOMEN -Time 10:45 -Correct Patient Yes No -Correct Side, Site, Position Yes No -Correct Procedure Yes No -Procedure Performed Yes No -Type of Procedure Debridement -Clinical Debridement Subcutaneous -Post Debridement Size (cm) - Length 0.4 -Post Debridement Size (cm) - Width 0.5 -Post Debridement Size (cm) - Depth 0.1 -Total Square Cm 0.20 -Wound/Ulcer Outcome Not Healed Healed- Epithelialized -Ulcer Cleansing Rinsed/ Irrigated with Saline -Foul Odor after Cleansing No -Bioengineered Tissue No -Bleeding Controlled with Pressure -Offloading No -Treatment Response Procedure Tolerated Well Pain Scale: 0-10 Numeric Is Patient Pain Free? Yes Yes Wound debrided: Spot on right lower abdominal incision line Laterality: Right Type of Debridement: Excisional debridement Anesthesia Used: 5% Lidocaine Gel Depth: Down to and including healthy tissue, in the subcutaneous layer Percentage of wound debrided: 100 Instrument Used: 3mm curette Tissue Removed: subcutaneous tissue and slough Severity: Limited To Skin Breakdown Amount of bleeding with debridement: None Bleeding Controlled with: Pressure Patient tolerated procedure well Assessment/Plan Assessment: 1. Nonhealing infected ulcer lower anterior abdominal wall with recent surgical closure on 02/26/19 and central abrasion. 2. 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 3. Abdominal panniculus. 4. Abdominal wall skin crease intertrigo. 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 Plan: The incision now only has one small opened area that is opened this is most likely from skin rubbing on skin which kept in the moisture leading to the abrasion. Wound care: Collagen hydrogel to the opened areas. The rest of the incision can be covered with dry gauze to keep her skin from rubbing on skin which can lead to further moisture breakdown. She has a small red area on her pubic area that is tender to palpation. Encouraged warm compresses several times per day to see if it will help with the drainage. Will start her on Doxycycline BID (28 tabs). Her Prealbumin is 10.3. Encourage nutritional supplementation with protein to help the healing process. She is complaining that she is having a difficult time eating her food due to all of her supplements. I phoned and spoke to her nurse at the [facility] where she is placed and she states she is getting 3 ensure shakes per day and 2 hanna drinks. We discussed this and she will talk with the emergency worker there to see if we can cut back on some of her supplements so she is able to eat regular food and not be so full. Her operative culture was negative. Followup two weeks. Continue abdominal binder. Code Visit [id number]: [id number] Global Visit
== END 2019-05-23 23:59 ==
LOC: WC 10:30
PROVIDERS: Family Provider Family Medicine; PCP Family Medicine; Referring Provider Internal Medicine; Visit Provider Surgery
DX: L98.491 Non-pressure chronic ulcer of skin of other sites limited to breakdown of skin (principal); L30.4 Erythema intertrigo; E65 Localized adiposity; Z98.890 Other specified postprocedural states
CPT/HCPCS: 11042

== ENCOUNTER → 2019-05-25 05:57 | Outpatient (REF) | payer MEDICARE, OTHER, SELFPAY ==
[2019-05-18 10:23] VITALS: BMI 30.2
[2019-05-25 08:16] LABS: Absolute Lymphocyte Count 1.15 X10^3/uL (0.83-4.51); Absolute Neutrophil Count 1.8 X10^3/uL (2.0-7.7); Basophil# 0.01 X10^3/uL; Basophil% 0.3 % (0-1); Eosinophil# 0.28 X10^3/uL; Eosinophils% 7.5 % (0-5); Hematocrit 33.6 % (37-47); Hemoglobin 10.8 g/dL (12.0-15.0); Lymphocyte # 1.15 X10^3/ul (4.0); Lymphocyte % 30.7 % (19-41); Mean Corp Hgb Conc 32.1 g/dL (32-36); Mean Corpuscular Hgb 31.5 pg (27.0-32.0); Mean Platelet Vol. 10.6 fl (6.2-12.0); Monocyte# 0.51 X10^3/uL; Monocyte% 13.6 % (0-10); NRBC Flagged by Analyzer 0 % (0-5); Neutrophil # 1.79 X10^3/uL (2.7-7.7); Neutrophil % 47.6 % (47-70); Platelet Count 113 K/mm3 (150-450); RBC Distribution Width CV 12.9 % (11.6-14.6); RBC Distribution Width SD 46.5 fl (35.1-43.9); Red Blood Count 3.43 M/mm3 (4.2-5.4); White Blood Count 3.8 K/mm3 (4.4-11.0)
[2019-05-25 08:33] LABS: Anion Gap 8 (5-15); BUN 29 mg/dL (7-18); BUN/Creat Ratio 34.6 RATIO (10-20); Calcium,Total 8.8 mg/dL (8.5-10.1); Chloride 107 mmol/L (98-107); Creatinine, Serum 0.84 mg/dL (0.55-1.02); EST Glomerular Filtration Rate 69 mL/min (>60); Est Glom Filt Rate - Afr Amer 84 mL/min (>60); Glucose 75 mg/dL (74-106); Potassium 4.1 mmol/L (3.5-5.1); Sodium Level 143 mmol/L (136-145)
[2019-05-25 15:20] LABS: Xtra Tube EP Lab EXTRA TUBE
== END ==
LOC: OLS.ACH 05:57
PROVIDERS: PCP Family Medicine; Visit Provider Family Medicine
DX: S31.103D Unspecified open wound of abdominal wall, right lower quadrant without penetration into peritoneal cavity, subsequent encounter (principal)
CPT/HCPCS: 36415; 80048; 80053; 82728; 83540; 83550; 83615; 85025

== ENCOUNTER → 2019-06-01 04:30 | Outpatient (REF) | payer MEDICARE, OTHER, SELFPAY ==
[2019-05-18 10:23] VITALS: BMI 30.2
[2019-06-01 08:33] LABS: Absolute Lymphocyte Count 1.13 X10^3/uL (0.83-4.51); Absolute Neutrophil Count 1.7 X10^3/uL (2.0-7.7); Basophil# 0.01 X10^3/uL; Basophil% 0.3 % (0-1); Eosinophil# 0.25 X10^3/uL; Eosinophils% 6.9 % (0-5); Hematocrit 36.3 % (37-47); Hemoglobin 11.6 g/dL (12.0-15.0); Lymphocyte # 1.13 X10^3/ul (4.0); Lymphocyte % 31.2 % (19-41); Mean Corpuscular Hgb 31.4 pg (27.0-32.0); Mean Corpuscular Volume 98.1 fL (81-99); Mean Platelet Vol. 10.3 fl (6.2-12.0); Monocyte# 0.54 X10^3/uL; Monocyte% 14.9 % (0-10); NRBC Flagged by Analyzer 0 % (0-5); Neutrophil # 1.68 X10^3/uL (2.7-7.7); Neutrophil % 46.4 % (47-70); Platelet Count 120 K/mm3 (150-450); RBC Distribution Width CV 12.8 % (11.6-14.6); White Blood Count 3.6 K/mm3 (4.4-11.0)
[2019-06-01 08:40] LABS: Anion Gap 2 (5-15); BUN 25 mg/dL (7-18); BUN/Creat Ratio 24.8 RATIO (10-20); Chloride 109 mmol/L (98-107); Creatinine, Serum 1.01 mg/dL (0.55-1.02); EST Glomerular Filtration Rate 56 mL/min (>60); Est Glom Filt Rate - Afr Amer 68 mL/min (>60); Glucose 77 mg/dL (74-106); Potassium 4.4 mmol/L (3.5-5.1); Sodium Level 141 mmol/L (136-145)
[2019-06-01 10:50] VITALS: BMI 30.2
== END ==
LOC: OLS.ACH 04:30
PROVIDERS: Visit Provider Family Medicine
DX: S31.103D Unspecified open wound of abdominal wall, right lower quadrant without penetration into peritoneal cavity, subsequent encounter (principal); L98.491 Non-pressure chronic ulcer of skin of other sites limited to breakdown of skin; L30.4 Erythema intertrigo; E65 Localized adiposity
CPT/HCPCS: 11042; 36415; 80048; 85025

== ENCOUNTER 2019-06-01 08:53 | Outpatient (RCR) | payer MEDICARE, OTHER, SELFPAY ==
[2019-05-24 00:30] VITALS: BP 157/63; PULSE 87; RESP 18; TEMP 36.6
[2019-06-01 10:50] VITALS: BP 157/79; PULSE 81; RESP 18; TEMP 36.4; BMI 30.2
--- NOTE | 2019-06-01 11:22 | PN.PCM_ITS ---
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 History of Wound: Surgery 02/26/19 - Surgical preparation lower anterior abdominal wall with excisional debridement nonhealing infected ulcer (240 cm2) and 48 cm complex secondary wound closure. Wound care - Collagen hydrogel to the remaining opened area on right lower abdominal incision. The remaining incision is healed. The pubic area has a firm area but is not red and inflamed. Will continue to monitor. If it enlarges, she can place warm, moist compresses to the area several times a day. Operative culture - negative. Was discharged on Augmentin until the drains are removed. Prealbumin from 02/25/19 was 10.3. Encourage nutritional supplementation with protein to help the healing process. Surgery 01/05/19 - 1. Surgical preparation lower anterior abdominal wall with excisional debridement skin, subcutaneous tissue, and fascia for necrotizing soft tissue infection abscess ulcers (588 cm2). 2. Abdominal panniculectomy. Operative culture from 01/05/19 - Proteus mirabilis. Preop culture showed Proteus mirabilis, MRSE, and Anaerobic cocci. She was placed on Augmentin and Doxycycline and finished them. Today she denies fever. Her appetite is ok. Progress of Wound: Recent surgical wound closure on 02/26/19 with central abrasion. She now has one small area that is opened along the incision line. The other areas are now healed. - Physical Exam Vital Signs Temp Pulse Resp BP 97.6 F L 81 18 157/79 H 06/01/19 10:50 06/01/19 10:50 06/01/19 10:50 06/01/19 10:50 General: Alert, Oriented x3, Cooperative HEENT: Atraumatic Oral: Moist Mucosa Lungs: Normal air movement Cardiovascular: Regular rate Abdomen: Soft, Non Tender Extremities: Capillary Refill Less than 3 Seconds Skin: Ulcer/ Wound - right lower abdominal incision with small opening Wound Measurements and Assessment WC - Nurse 1 - General Ulcer Measurement Start: 06/01/19 10:50 Freq: Status: Active Protocol: Activity Type Activity Date Activity User E-Sign Co-Sign Detail Recorded Client Recorded Date Recorded By Document 06/01/19 10:50 RB [id number] 06/01/19 10:59 RB 06/01/19 10:50 Wound Center Nurse 1 [Ulcer Assessment] #8 R Lower Abd -Combined with other wound No -Current Size (cm) - Length 0.1 -Current Size (cm) - Width 0.1 -Current Size (cm) - Depth 0.1 -Total Square Cm 0.01 -Tunneling No -Undermining/Tunneling No -Circular Undermining No -Exudate Amt None Present -Wound Margin Flat & Intact -Granulation Amt Medium (34-66%) -Granulation Quality [place] -Slough/Fibrin Yes -Necrosis Amt Small (1-33%) -Necrotic Tissue Type Adherent Slough -Structure Exposed N/A -Texture (Shanita-wound Skin Appearance) Assessed, Scarring -Moisture (Shanita-wound Skin Appearance Assessed ) -Color (Shanita-wound Skin Appearance) Assessed -Temperature (Shanita-wound Skin No Abnormality Appearance) (Pt Warm) -Tenderness on Palpation (Shanita-wound No Skin Appearance) -Ulcer Cleansing Rinsed/ Irrigated with Saline -Foul Odor after Cleansing No -Anesthetic Used 4% Lidocaine Solution - Nurse 2 - General Ulcer CM Notes Start: 06/01/19 10:50 Freq: Status: Active Protocol: Activity Type Activity Date Activity User E-Sign Co-Sign Detail Recorded Client Recorded Date Recorded By Document 06/01/19 11:12 ROMI [id number] 06/01/19 11:13 ROMI 06/01/19 11:12 Wound Center Nurse 2 [Procedure/Treatment] -Time 11:13 -Correct Patient Yes -Correct Side, Site, Position Yes -Correct Procedure Yes -Procedure Performed Yes -Type of Procedure Debridement -Clinical Debridement Subcutaneous -Post Debridement Size (cm) - Length 0.1 -Post Debridement Size (cm) - Width 0.1 -Post Debridement Size (cm) - Depth 0.3 -Total Square Cm 0.01 -Wound/Ulcer Outcome Not Healed -Ulcer Cleansing Rinsed/ Irrigated with Saline -Foul Odor after Cleansing No -Bioengineered Tissue No -Bleeding Controlled with Pressure -Offloading No -Treatment Response Procedure Tolerated Well [See Physician Procedure note for Specifics] Pain Scale: 0-10 Numeric [Pain] -Is Patient Pain Free? Yes Musculoskeletal: No Muscle Wasting Neurological: Neuro grossly intact Psych/Mental Status: Normal Affect, Appropriate Debridement Note Post-Debridement Measurements/Treatment WC - Nurse 2 - General Ulcer CM Notes Start: 06/01/19 10:50 Freq: Status: Active Protocol: Activity Type Activity Date Activity User E-Sign Co-Sign Detail Recorded Client Recorded Date Recorded By Document 06/01/19 11:12 ROMI [id number] 06/01/19 11:13 ROMI 06/01/19 11:12 Wound Center Nurse 2 #8 R Lower Abd -Time 11:13 -Correct Patient Yes -Correct Side, Site, Position Yes -Correct Procedure Yes -Procedure Performed Yes -Type of Procedure Debridement -Clinical Debridement Subcutaneous -Post Debridement Size (cm) - Length 0.1 -Post Debridement Size (cm) - Width 0.1 -Post Debridement Size (cm) - Depth 0.3 -Total Square Cm 0.01 -Wound/Ulcer Outcome Not Healed -Ulcer Cleansing Rinsed/ Irrigated with Saline -Foul Odor after Cleansing No -Bioengineered Tissue No -Bleeding Controlled with Pressure -Offloading No -Treatment Response Procedure Tolerated Well Pain Scale: 0-10 Numeric Is Patient Pain Free? Yes Wound debrided: lower abdomen ulcer Laterality: Right Type of Debridement: Excisional debridement Anesthesia Used: 5% Lidocaine Gel Depth: Down to and including healthy tissue, in the subcutaneous layer Percentage of wound debrided: 100 Instrument Used: - - 1 mm curette Tissue Removed: subcutaneous tissue and slough- pin hole opening Severity: Limited To Skin Breakdown Amount of bleeding with debridement: Mild Bleeding Controlled with: Pressure Patient tolerated procedure well Assessment/Plan Active Problems (Last Reviewed 05/25/19 @ 11:09 by Luz Andino) Skin ulcer of abdominal wall with fat layer exposed (Chronic) Intertriginous dermatitis associated with moisture (Chronic) Assessment: 1. Nonhealing infected ulcer lower anterior abdominal wall with recent surgical closure on 02/26/19 and central abrasion. 2. 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 3. Abdominal panniculus. 4. Abdominal wall skin crease intertrigo. 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 Plan: The incision now only has one small opened area that is opened this is most likely from skin rubbing on skin which kept in the moisture leading to the abrasion. Wound care: Collagen hydrogel to the opened area. The rest of the incision can be covered with dry gauze to keep her skin from rubbing on skin which can lead to further moisture breakdown. Completed Doxycycline. Her Prealbumin is 10.3. Encourage nutritional supplementation with protein to help the healing process. Her operative culture was negative. Followup two weeks. Continue abdominal binder. [id number]: [id number] Leyda subq tissue 20 sq cm/<
== END 2019-06-23 23:59 ==
LOC: WC 08:53
PROVIDERS: Family Provider Family Medicine; PCP Family Medicine; Referring Provider Internal Medicine; Visit Provider Surgery
DX: L98.491 Non-pressure chronic ulcer of skin of other sites limited to breakdown of skin (principal); L30.4 Erythema intertrigo; E65 Localized adiposity
CPT/HCPCS: 11042

== ENCOUNTER → 2019-06-08 05:00 | Outpatient (REF) | payer MEDICARE, OTHER, SELFPAY ==
[2019-06-01 10:50] VITALS: BMI 30.2
[2019-06-08 08:00] LABS: Absolute Lymphocyte Count 0.96 X10^3/uL (0.83-4.51); Absolute Neutrophil Count 1.7 X10^3/uL (2.0-7.7); Basophil# 0.01 X10^3/uL; Basophil% 0.3 % (0-1); Eosinophils% 5.8 % (0-5); Hematocrit 33.8 % (37-47); Lymphocyte # 0.96 X10^3/ul (4.0); Lymphocyte % 27.9 % (19-41); Mean Corp Hgb Conc 32.5 g/dL (32-36); Mean Corpuscular Hgb 31.9 pg (27.0-32.0); Mean Platelet Vol. 10.7 fl (6.2-12.0); Monocyte# 0.52 X10^3/uL; Monocyte% 15.1 % (0-10); NRBC Flagged by Analyzer 0 % (0-5); Neutrophil # 1.74 X10^3/uL (2.7-7.7); Neutrophil % 50.6 % (47-70); Platelet Count 111 K/mm3 (150-450); RBC Distribution Width CV 12.6 % (11.6-14.6); RBC Distribution Width SD 44.9 fl (35.1-43.9); Red Blood Count 3.45 M/mm3 (4.2-5.4); White Blood Count 3.4 K/mm3 (4.4-11.0)
[2019-06-08 08:30] LABS: Anion Gap 4 (5-15); BUN 31 mg/dL (7-18); BUN/Creat Ratio 36.6 RATIO (10-20); Calcium,Total 8.9 mg/dL (8.5-10.1); Chloride 106 mmol/L (98-107); Creatinine, Serum 0.85 mg/dL (0.55-1.02); EST Glomerular Filtration Rate 69 mL/min (>60); Est Glom Filt Rate - Afr Amer 83 mL/min (>60); Glucose 87 mg/dL (74-106); Sodium Level 140 mmol/L (136-145)
== END ==
LOC: OLS.ACH 05:00
PROVIDERS: PCP Family Medicine; Visit Provider Family Medicine
DX: S31.103D Unspecified open wound of abdominal wall, right lower quadrant without penetration into peritoneal cavity, subsequent encounter (principal)
CPT/HCPCS: 36415; 80048; 85025

== ENCOUNTER → 2019-06-15 04:00 | Outpatient (REF) | payer MEDICARE, OTHER, SELFPAY ==
[2019-06-01 10:50] VITALS: BMI 30.2
[2019-06-15 06:48] LABS: Absolute Lymphocyte Count 1.12 X10^3/uL (0.83-4.51); Absolute Neutrophil Count 2.1 X10^3/uL (2.0-7.7); Basophil# 0.02 X10^3/uL; Basophil% 0.5 % (0-1); Eosinophil# 0.22 X10^3/uL; Eosinophils% 5.3 % (0-5); Hematocrit 34.7 % (37-47); Hemoglobin 11.2 g/dL (12.0-15.0); Lymphocyte # 1.12 X10^3/ul (4.0); Lymphocyte % 27.1 % (19-41); Mean Corp Hgb Conc 32.3 g/dL (32-36); Mean Corpuscular Hgb 31.6 pg (27.0-32.0); Mean Platelet Vol. 10.9 fl (6.2-12.0); Monocyte# 0.64 X10^3/uL; Monocyte% 15.5 % (0-10); NRBC Flagged by Analyzer 0 % (0-5); Neutrophil # 2.13 X10^3/uL (2.7-7.7); Neutrophil % 51.4 % (47-70); Platelet Count 119 K/mm3 (150-450); RBC Distribution Width CV 12.5 % (11.6-14.6); RBC Distribution Width SD 45.1 fl (35.1-43.9); Red Blood Count 3.54 M/mm3 (4.2-5.4); White Blood Count 4.1 K/mm3 (4.4-11.0)
[2019-06-15 07:14] LABS: Anion Gap 6 (5-15); BUN 29 mg/dL (7-18); BUN/Creat Ratio 33.1 RATIO (10-20); Calcium,Total 8.9 mg/dL (8.5-10.1); Chloride 107 mmol/L (98-107); Creatinine, Serum 0.88 mg/dL (0.55-1.02); EST Glomerular Filtration Rate 66 mL/min (>60); Est Glom Filt Rate - Afr Amer 80 mL/min (>60); Glucose 74 mg/dL (74-106); Potassium 4.1 mmol/L (3.5-5.1); Sodium Level 143 mmol/L (136-145)
== END ==
LOC: OLS.ACH 04:00
PROVIDERS: PCP Family Medicine; Visit Provider Family Medicine
DX: S31.103D Unspecified open wound of abdominal wall, right lower quadrant without penetration into peritoneal cavity, subsequent encounter (principal)
CPT/HCPCS: 36415; 80048; 85025

== ENCOUNTER → 2019-06-29 05:00 | Outpatient (REF) | payer MEDICARE, OTHER, SELFPAY ==
[2019-06-01 10:50] VITALS: BMI 30.2
[2019-06-29 07:31] LABS: Hematocrit 34.5 % (37-47); Hemoglobin 11.1 g/dL (12.0-15.0); Mean Corp Hgb Conc 32.2 g/dL (32-36); Mean Corpuscular Hgb 32.1 pg (27.0-32.0); Mean Corpuscular Volume 99.7 fL (81-99); Mean Platelet Vol. 10.9 fl (6.2-12.0); Platelet Count 116 K/mm3 (150-450); RBC Distribution Width CV 12.5 % (11.6-14.6); RBC Distribution Width SD 45.2 fl (35.1-43.9); Red Blood Count 3.46 M/mm3 (4.2-5.4); White Blood Count 3.9 K/mm3 (4.4-11.0)
[2019-06-30 04:06] LABS: Immunoglobulin A 209 mg/dL (64-422)
[2019-06-30 17:37] LABS: Immunoglobulin G 839 mg/dL (586-1602); Immunoglobulin M 70 mg/dL (26-217)
== END ==
LOC: OLS.ACH 05:00
PROVIDERS: PCP Family Medicine; Visit Provider Family Medicine
DX: N18.9 Chronic kidney disease, unspecified (principal); D63.8 Anemia in other chronic diseases classified elsewhere
CPT/HCPCS: 36415; 82784; 85027

== ENCOUNTER → 2019-07-06 05:00 | Outpatient (REF) | payer MEDICARE, OTHER, SELFPAY ==
[2019-07-06 08:48] LABS: Thyroid Stim Hormone (TSH) 1.39 uIU/mL (0.358-3.74)
== END ==
LOC: OLS.ACH 05:00
PROVIDERS: PCP Family Medicine; Referring Provider Family Medicine; Visit Provider Family Medicine
DX: E03.9 Hypothyroidism, unspecified (principal)
CPT/HCPCS: 36415; 84443

== ENCOUNTER → 2019-08-18 04:00 | Outpatient (REF) | payer MEDICARE, OTHER, SELFPAY ==
[2019-08-18 08:57] LABS: Absolute Lymphocyte Count 1.08 X10^3/uL (0.83-4.51); Absolute Neutrophil Count 5.3 X10^3/uL (2.0-7.7); Basophil# 0.02 X10^3/uL; Basophil% 0.3 % (0-1); Eosinophil# 0.27 X10^3/uL; Eosinophils% 3.7 % (0-5); Hematocrit 30.6 % (37-47); Hemoglobin 9.9 g/dL (12.0-15.0); Lymphocyte # 1.08 X10^3/ul (4.0); Lymphocyte % 14.6 % (19-41); Mean Corp Hgb Conc 32.4 g/dL (32-36); Mean Corpuscular Hgb 30.4 pg (27.0-32.0); Mean Corpuscular Volume 93.9 fL (81-99); Mean Platelet Vol. 13.3 fl (6.2-12.0); Monocyte# 0.65 X10^3/uL; Monocyte% 8.8 % (0-10); NRBC Flagged by Analyzer 0 % (0-5); Neutrophil # 5.34 X10^3/uL (2.7-7.7); Neutrophil % 72.3 % (47-70); Platelet Count 260 K/mm3 (150-450); RBC Distribution Width CV 14.6 % (11.6-14.6); RBC Distribution Width SD 49.1 fl (35.1-43.9); Red Blood Count 3.26 M/mm3 (4.2-5.4); White Blood Count 7.4 K/mm3 (4.4-11.0)
== END ==
LOC: OLS.ACH 04:00
PROVIDERS: PCP Family Medicine; Referring Provider Family Medicine; Visit Provider Family Medicine
DX: D50.8 Other iron deficiency anemias (principal); D50.0 Iron deficiency anemia secondary to blood loss (chronic); D63.8 Anemia in other chronic diseases classified elsewhere
CPT/HCPCS: 36415; 85025

== ENCOUNTER → 2019-09-14 04:00 | Outpatient (REF) | payer MEDICARE, OTHER, SELFPAY ==
[2019-09-14 07:49] LABS: Absolute Lymphocyte Count 1.17 X10^3/uL (0.83-4.51); Absolute Neutrophil Count 2.2 X10^3/uL (2.0-7.7); Basophil# 0.01 X10^3/uL; Basophil% 0.2 % (0-1); Eosinophil# 0.17 X10^3/uL; Eosinophils% 4.1 % (0-5); Hematocrit 37.6 % (37-47); Hemoglobin 12.2 g/dL (12.0-15.0); Lymphocyte # 1.17 X10^3/ul (4.0); Lymphocyte % 28.5 % (19-41); Mean Corp Hgb Conc 32.4 g/dL (32-36); Mean Corpuscular Hgb 32.7 pg (27.0-32.0); Mean Corpuscular Volume 100.8 fL (81-99); Monocyte# 0.51 X10^3/uL; Monocyte% 12.4 % (0-10); NRBC Flagged by Analyzer 0 % (0-5); Neutrophil # 2.24 X10^3/uL (2.7-7.7); Neutrophil % 54.6 % (47-70); Platelet Count 109 K/mm3 (150-450); RBC Distribution Width CV 11.8 % (11.6-14.6); RBC Distribution Width SD 44.1 fl (35.1-43.9); Red Blood Count 3.73 M/mm3 (4.2-5.4); White Blood Count 4.1 K/mm3 (4.4-11.0)
[2019-09-14 08:41] LABS: Vitamin B12 646 pg/mL (211-911)
[2019-09-14 08:56] LABS: ALB/GLOB Ratio 1.1 RATIO (0.9-2.4); AST(SGOT) 29 U/L (15-37); Alanine Aminotransfer ALT/SGPT 36 U/L (13-56); Albumin, Serum 3.1 g/dL (3.2-5.0); Alkaline Phosphatase 93 U/L (45-117); Anion Gap 7 (5-15); BUN 36 mg/dL (7-18); BUN/Creat Ratio 35.3 RATIO (10-20); Chloride 104 mmol/L (98-107); Creatinine, Serum 1.02 mg/dL (0.55-1.02); EST Glomerular Filtration Rate 55 mL/min (>60); Est Glom Filt Rate - Afr Amer 67 mL/min (>60); Ferritin 197 ng/mL (8-252); Globulin 2.9 g/dL (2.2-4.2); Glucose 86 mg/dL (74-106); Iron 61 ug/dL (50-170); Iron Binding Capacity,Total 253 ug/dL (250-450); LDH 154 U/L (84-246); Potassium 4.4 mmol/L (3.5-5.1); Sodium Level 140 mmol/L (136-145)
== END ==
LOC: OLS.ACH 04:00
PROVIDERS: PCP Family Medicine; Visit Provider Family Medicine
DX: Z85.72 Personal history of non-Hodgkin lymphomas (principal); D50.9 Iron deficiency anemia, unspecified
CPT/HCPCS: 36415; 80053; 82607; 82728; 82746; 83540; 83550; 83615; 85025

== ENCOUNTER → 2019-09-15 14:25 | Outpatient (REF) | payer MEDICARE, OTHER, SELFPAY ==
[2019-09-15 15:18] LABS: BNP,B-Type NATRIURETIC PEPTIDE 189.6 pg/mL (0-100)
== END ==
LOC: OLS.ACH 14:25
PROVIDERS: PCP Family Medicine; Visit Provider Family Medicine
DX: Z86.711 Personal history of pulmonary embolism (principal); R06.02 Shortness of breath
CPT/HCPCS: 36415; 83880

== ENCOUNTER → 2019-12-01 06:30 | Outpatient (REF) | payer MEDICARE, OTHER, SELFPAY ==
[2019-11-25 10:32] VITALS: BMI 33.7
[2019-12-01 09:44] LABS: Anion Gap 4 (5-15); BUN 49 mg/dL (7-18); BUN/Creat Ratio 38.9 RATIO (10-20); Calcium,Total 8.8 mg/dL (8.5-10.1); Chloride 102 mmol/L (98-107); Creatinine, Serum 1.26 mg/dL (0.55-1.02); EST Glomerular Filtration Rate 43 mL/min (>60); Est Glom Filt Rate - Afr Amer 52 mL/min (>60); Glucose 86 mg/dL (74-106); Potassium 4.2 mmol/L (3.5-5.1); Sodium Level 140 mmol/L (136-145)
== END ==
LOC: OLS.ACH 06:30
PROVIDERS: PCP Family Medicine; Visit Provider Family Medicine
DX: I48.91 Unspecified atrial fibrillation (principal)
CPT/HCPCS: 36415; 80048

== ENCOUNTER → 2019-12-03 14:49 | Outpatient (CLI) | payer MEDICARE, OTHER, SELFPAY ==
[2019-11-25 10:32] VITALS: BMI 33.7
--- NOTE | 2019-12-03 14:50 | ECHOCS_ITS ---
Reason For Study: CHF Procedure This was a 2D Doppler, Color Flow transthoracic echocardiogram. The study was technically difficult. Contrast injection was performed. Exam performed in department. Left Ventricle Normal LV size. The estimated ejection fraction is 65 %. Unable to assess diastolic dysfunction. No regional wall motion abnormalities noted. Right Ventricle Normal RV size. Normal systolic function. Atria The left atrium is mildly enlarged. The right atrium is mildly enlarged. No doppler evidence for ASD. Mitral Valve There is moderate to severe mitral annular calcification. Mild mitral valve stenosis. Mild (1+) mitral valve insufficiency. Tricuspid Valve There is no tricuspid stenosis. Mild tricuspid valve insufficiency. Pulmonary artery systolic pressure is 40-45 mmHg. Aortic Valve Trisinus/trileaflet aortic valve. Aortic sclerosis, no stenosis. There is no aortic stenosis. Trivial aortic valve insufficiency. Pulmonic Valve There is no pulmonic valvular stenosis. Trivial pulmonic valve insufficiency. Great Vessels Normal aortic root. Pericardium/Pleural No pericardial effusion. Medication 22 gauge I.V. with prn adaptor inserted into left arm. Diluted definity 4.0ml given slow IV push to enhance endocardial definition. MMode/2D Measurements & Calculations LVIDd: 4.0 cm IVSd: 0.71 cm LVOT diam: 2.0 cm LVIDs: 2.5 cm LVPWd: 0.76 cm FS: 38.1 % LVOT area: 3.2 cm2 Ao root diam: 3.5 cm LAV(MOD-bp): 49.4 ml LVAd ap4: 23.0 cm2 LAV(MOD-bp) Indexed: 29.1 ml/m2 EDV(MOD-sp4): 60.9 ml LAV(MOD-sp2): 52.4 ml EDV(sp4-el): 63.6 ml LAV(MOD-sp4): 44.6 ml LVAs ap4: 11.9 cm2 ESV(MOD-sp4): 20.3 ml ESV(sp4-el): 20.7 ml EF(MOD-sp4): 66.6 % EF(sp4-el): 67.4 % SV(MOD-sp4): 40.6 ml SV(sp4-el): 42.8 ml LA A4 area: 17.5 cm2 LA dimension(2D): 4.0 cm RA A4 area: 17.6 cm2 Time Measurements MV dec time: 0.13 sec Doppler Measurements & Calculations MV E max gabriela: 187.4 cm/sec MV V2 max: 215.3 cm/sec Ao V2 max: 154.3 cm/sec MV max P.5 mmHg Ao max P.5 mmHg MV V2 mean: 95.6 cm/sec Ao V2 mean: 114.0 cm/sec MV mean P.0 mmHg Ao mean P.7 mmHg MV V2 VTI: 33.3 cm Ao V2 VTI: 30.4 cm ISRA(V,D): 1.7 cm2 LV V1 max: 84.6 cm/sec PA V2 max: 105.7 cm/sec TR max gabriela: 292.2 cm/sec LV V1 max P.9 mmHg TR max P.2 mmHg Interpretation Summary The estimated ejection fraction is 65 %. Unable to assess diastolic dysfunction. There is moderate to severe mitral annular calcification. Mild (1+) mitral valve insufficiency. Mild tricuspid valve insufficiency. Pulmonary artery systolic pressure is 40-45 mmHg. Aortic sclerosis, no stenosis. Trivial aortic valve insufficiency. Ordering Physician: Bridgette Rod Referring Physician: PATRICIA SNIDER Performed By: Yaquelin Terrell, TRUDY, RVT
== END ==
PROVIDERS: PCP Family Medicine; Referring Provider Specialist; Visit Provider Specialist
DX: I48.20 Chronic atrial fibrillation, unspecified (principal)
CPT/HCPCS: 93306; Q9957; A4216; C8929

== ENCOUNTER → 2019-12-08 08:12 | Outpatient (CLI) | payer MEDICARE, OTHER, SELFPAY ==
[2019-11-25 10:32] VITALS: BMI 33.7
--- NOTE | 2019-12-08 08:15 | CT_ITS ---
STUDY: CT CHEST WITHOUT CONTRAST REASON FOR EXAM: Female, 79 years old. RIGHT LUNG NODULE FOLLOW UP. HX OF HTN,AFIB,PE AND LEFT HEART CATH RADIATION DOSAGE (If Supplied By Facility): CTDIvol = ( 18.97 ) mGy, DLP = ( 609.11 ) mGycm TECHNIQUE: Transaxial imaging was performed without the administration of intravenous contrast material. Multiplanar coronal and sagittal images were reformatted. Individualized dose optimization techniques were used for this CT. COMPARISON: Comparison is made with prior study dated 09/04/2018. FINDINGS: Stable small benign-appearing bilateral axillary lymph nodes. Stable elevation of the right hemidiaphragm. Stable appearance of the noncalcified pulmonary nodules in the right lower lobe abutting the right hemidiaphragm. The largest nodule measures 1.4 cm x 1.1 cm. Stable bronchiectasis in the chronic airspace disease in the right lower lobe in the right infrahilar region. There is no demonstrated pleural abnormality. There are calcifications of the coronary arteries. There are multiple small lymph nodes within the mediastinum, which are normal in size and morphology most compatible with reactive lymph hyperplasia. Normal hilar regions. Normal unenhanced pulmonary arteries. There is atherosclerotic calcification of the aortic arch with tortuosity and elongation of the aortic arch and descending thoracic aorta. There are multi-level degenerative changes of the thoracic spine. Once again, there is evidence of a healed right seventh eighth ninth and 11th rib fractures. There is no demonstrated abnormality of the visualized upper abdomen. CT/Chest without Contrast IMPRESSION: Stable examination. Electronically Signed: Ethan Connelly, at 9:08 EDT , Service support ,
== END ==
PROVIDERS: PCP Family Medicine; Referring Provider Internal Medicine Pulmonary Disease; Visit Provider Internal Medicine Pulmonary Disease
DX: R91.1 Solitary pulmonary nodule (principal); R06.00 Dyspnea, unspecified
CPT/HCPCS: 71250

== ENCOUNTER → 2019-12-09 05:00 | Outpatient (REF) | payer MEDICARE, OTHER, SELFPAY ==
[2019-11-25 10:32] VITALS: BMI 33.7
== END ==
LOC: OLS.ACH 05:00
PROVIDERS: PCP Family Medicine; Visit Provider Family Medicine
DX: Z11.59 Encounter for screening for other viral diseases (principal); N23 Unspecified renal colic
CPT/HCPCS: 87077; 87086; 87088; 87186; 87635; U0003

== ENCOUNTER → 2019-12-16 05:00 | Outpatient (REF) | payer MEDICARE, OTHER, SELFPAY ==
[2019-11-25 10:32] VITALS: BMI 33.7
== END ==
LOC: OLS.ACH 05:00
PROVIDERS: PCP Family Medicine; Referring Provider Family Medicine; Visit Provider Family Medicine
DX: Z11.59 Encounter for screening for other viral diseases (principal)
CPT/HCPCS: 87635; U0003

== ENCOUNTER → 2019-12-17 05:30 | Outpatient (REF) | payer MEDICARE, OTHER, SELFPAY ==
[2019-11-25 10:32] VITALS: BMI 33.7
[2019-12-17 08:41] LABS: Absolute Lymphocyte Count 1.02 X10^3/uL (0.83-4.51); Basophil# 0.02 X10^3/uL; Basophil% 0.5 % (0-1); Eosinophils% 5.2 % (0-5); Hemoglobin 11.2 g/dL (12.0-15.0); Lymphocyte # 1.02 X10^3/ul (4.0); Lymphocyte % 26.4 % (19-41); Mean Corpuscular Hgb 32.3 pg (27.0-32.0); Mean Corpuscular Volume 100.9 fL (81-99); Mean Platelet Vol. 11.2 fl (6.2-12.0); Monocyte# 0.66 X10^3/uL; Monocyte% 17.1 % (0-10); NRBC Flagged by Analyzer 0 % (0-5); Neutrophil # 1.96 X10^3/uL (2.7-7.7); Neutrophil % 50.8 % (47-70); Platelet Count 100 K/mm3 (150-450); RBC Distribution Width CV 12.4 % (11.6-14.6); RBC Distribution Width SD 46.5 fl (35.1-43.9); Red Blood Count 3.47 M/mm3 (4.2-5.4); White Blood Count 3.9 K/mm3 (4.4-11.0)
[2019-12-17 08:52] LABS: Anion Gap 5 (5-15); BUN 42 mg/dL (7-18); BUN/Creat Ratio 23.7 RATIO (10-20); Calcium,Total 9.1 mg/dL (8.5-10.1); Chloride 101 mmol/L (98-107); Creatinine, Serum 1.77 mg/dL (0.55-1.02); EST Glomerular Filtration Rate 29 mL/min (>60); Est Glom Filt Rate - Afr Amer 35 mL/min (>60); Glucose 76 mg/dL (74-106); Potassium 5.1 mmol/L (3.5-5.1); Sodium Level 137 mmol/L (136-145); Uric Acid 7.5 mg/dL (2.6-6.0)
== END ==
LOC: OLS.ACH 05:30
PROVIDERS: PCP Family Medicine; Referring Provider Family Medicine; Visit Provider Family Medicine
DX: I48.21 Permanent atrial fibrillation (principal); R42 Dizziness and giddiness; I12.9 Hypertensive chronic kidney disease with stage 1 through stage 4 chronic kidney disease, or unspecified chronic kidney disease; N18.9 Chronic kidney disease, unspecified
CPT/HCPCS: 36415; 80048; 84550; 85025

== ENCOUNTER → 2019-12-17 22:08 | Outpatient (REF) | payer MEDICARE, OTHER, SELFPAY ==
[2019-11-25 10:32] VITALS: BMI 33.7
== END ==
LOC: OLS.ACH 22:08
PROVIDERS: PCP Family Medicine; Referring Provider Family Medicine; Visit Provider Family Medicine
DX: Z03.818 Encounter for observation for suspected exposure to other biological agents ruled out (principal); I12.9 Hypertensive chronic kidney disease with stage 1 through stage 4 chronic kidney disease, or unspecified chronic kidney disease; I48.21 Permanent atrial fibrillation; N18.9 Chronic kidney disease, unspecified; R42 Dizziness and giddiness
CPT/HCPCS: 36415; 80048; 84550; 85025; 87635; U0003

== ENCOUNTER → 2019-12-18 21:30 | Outpatient (REF) | payer MEDICARE, OTHER, SELFPAY ==
[2019-11-25 10:32] VITALS: BMI 33.7
[2019-12-19] LABS: Probe Check PASS; Specimen Processing Control PASS
== END ==
LOC: OLS.ACH 21:30
PROVIDERS: PCP Family Medicine; Visit Provider Family Medicine
DX: Z03.818 Encounter for observation for suspected exposure to other biological agents ruled out (principal)
CPT/HCPCS: 87635; U0003

== ENCOUNTER → 2019-12-21 10:00 | Outpatient (REF) | payer MEDICARE, OTHER, SELFPAY ==
[2019-11-25 10:32] VITALS: BMI 33.7
== END ==
LOC: OLS.ACH 10:00
PROVIDERS: PCP Family Medicine; Visit Provider Family Medicine
DX: Z11.59 Encounter for screening for other viral diseases (principal)
CPT/HCPCS: 87635; U0003

== ENCOUNTER → 2019-12-25 14:36 | Outpatient (REF) | payer MEDICARE, OTHER, SELFPAY ==
[2019-11-25 10:32] VITALS: BMI 33.7
== END ==
LOC: OLS.ACH 14:36
PROVIDERS: PCP Family Medicine; Referring Provider Family Medicine; Visit Provider Family Medicine
DX: Z03.818 Encounter for observation for suspected exposure to other biological agents ruled out (principal)
CPT/HCPCS: 87635; U0003

== ENCOUNTER → 2019-12-28 08:00 | Outpatient (REF) | payer MEDICARE, OTHER, SELFPAY ==
[2019-11-25 10:32] VITALS: BMI 33.7
== END ==
LOC: OLS.ACH 08:00
PROVIDERS: Referring Provider Family Medicine; Visit Provider Family Medicine
DX: Z03.818 Encounter for observation for suspected exposure to other biological agents ruled out (principal)
CPT/HCPCS: 87635; U0003

== ENCOUNTER → 2020-01-01 12:43 | Outpatient (REF) | payer MEDICARE, OTHER, SELFPAY ==
[2019-12-30 13:05] VITALS: BMI 34.1
== END ==
LOC: OLS.ACH 12:43
PROVIDERS: Referring Provider Family Medicine; Visit Provider Family Medicine
DX: Z03.818 Encounter for observation for suspected exposure to other biological agents ruled out (principal)
CPT/HCPCS: 87635; U0003

== ENCOUNTER → 2020-01-04 04:00 | Outpatient (REF) | payer MEDICARE, OTHER, SELFPAY ==
[2019-12-30 13:05] VITALS: BMI 34.1
[2020-01-04 07:43] LABS: Hematocrit 34.3 % (37-47); Mean Corp Hgb Conc 32.1 g/dL (32-36); Mean Corpuscular Hgb 32.7 pg (27.0-32.0); Mean Corpuscular Volume 102.1 fL (81-99); Mean Platelet Vol. 10.7 fl (6.2-12.0); Platelet Count 112 K/mm3 (150-450); RBC Distribution Width CV 12.1 % (11.6-14.6); RBC Distribution Width SD 45.4 fl (35.1-43.9); Red Blood Count 3.36 M/mm3 (4.2-5.4); White Blood Count 3.4 K/mm3 (4.4-11.0)
[2020-01-04 08:26] LABS: Anion Gap 4 (5-15); BUN 36 mg/dL (7-18); Chloride 106 mmol/L (98-107); Creatinine, Serum 1.06 mg/dL (0.55-1.02); EST Glomerular Filtration Rate 53 mL/min (>60); Est Glom Filt Rate - Afr Amer 64 mL/min (>60); Glucose 79 mg/dL (74-106); Potassium 4.5 mmol/L (3.5-5.1); Sodium Level 138 mmol/L (136-145)
== END ==
LOC: OLS.ACH 04:00
PROVIDERS: Referring Provider Family Medicine; Visit Provider Family Medicine
DX: I10 Essential (primary) hypertension (principal); E03.9 Hypothyroidism, unspecified; D64.9 Anemia, unspecified
CPT/HCPCS: 36415; 80048; 84443; 85027

== ENCOUNTER → 2020-01-04 15:53 | Outpatient (REF) | payer MEDICARE, OTHER, SELFPAY ==
[2019-12-30 13:05] VITALS: BMI 34.1
== END ==
LOC: OLS.ACH 15:53
PROVIDERS: Visit Provider Family Medicine
DX: Z03.818 Encounter for observation for suspected exposure to other biological agents ruled out (principal); I10 Essential (primary) hypertension; E03.9 Hypothyroidism, unspecified; D64.9 Anemia, unspecified
CPT/HCPCS: 36415; 80048; 84443; 85027; 87635; U0003

== ENCOUNTER → 2020-02-01 04:00 | Outpatient (REF) | payer MEDICARE, OTHER, SELFPAY ==
[2019-12-30 13:05] VITALS: BMI 34.1
[2020-02-01 07:23] LABS: Absolute Lymphocyte Count 1.03 X10^3/uL (0.83-4.51); Absolute Neutrophil Count 1.7 X10^3/uL (2.0-7.7); Basophil# 0.01 X10^3/uL; Basophil% 0.3 % (0-1); Eosinophil# 0.18 X10^3/uL; Eosinophils% 5.3 % (0-5); Hematocrit 34.4 % (37-47); Hemoglobin 11.1 g/dL (12.0-15.0); Lymphocyte # 1.03 X10^3/ul (4.0); Lymphocyte % 30.4 % (19-41); Mean Corp Hgb Conc 32.3 g/dL (32-36); Mean Corpuscular Hgb 32.5 pg (27.0-32.0); Mean Corpuscular Volume 100.6 fL (81-99); Mean Platelet Vol. 10.7 fl (6.2-12.0); Monocyte# 0.44 X10^3/uL; NRBC Flagged by Analyzer 0 % (0-5); Neutrophil # 1.72 X10^3/uL (2.7-7.7); Neutrophil % 50.7 % (47-70); Platelet Count 108 K/mm3 (150-450); RBC Distribution Width CV 11.9 % (11.6-14.6); RBC Distribution Width SD 44.4 fl (35.1-43.9); Red Blood Count 3.42 M/mm3 (4.2-5.4); White Blood Count 3.4 K/mm3 (4.4-11.0)
[2020-02-01 07:37] LABS: ALB/GLOB Ratio 1.1 RATIO (0.9-2.4); AST(SGOT) 26 U/L (15-37); Alanine Aminotransfer ALT/SGPT 28 U/L (13-56); Albumin, Serum 3.1 g/dL (3.2-5.0); Alkaline Phosphatase 100 U/L (45-117); Anion Gap 6 (5-15); BUN 34 mg/dL (7-18); Calcium,Total 8.8 mg/dL (8.5-10.1); Chloride 103 mmol/L (98-107); Creatinine, Serum 1.03 mg/dL (0.55-1.02); EST Glomerular Filtration Rate 55 mL/min (>60); Est Glom Filt Rate - Afr Amer 66 mL/min (>60); Globulin 2.9 g/dL (2.2-4.2); Glucose 78 mg/dL (74-106); Potassium 4.5 mmol/L (3.5-5.1); Sodium Level 140 mmol/L (136-145)
== END ==
LOC: OLS.ACH 04:00
PROVIDERS: Referring Provider Family Medicine; Visit Provider Family Medicine
DX: D50.9 Iron deficiency anemia, unspecified (principal)
CPT/HCPCS: 36415; 80053; 85025

== ENCOUNTER → 2020-03-08 08:19 | Outpatient (REF) | payer MEDICARE, OTHER, SELFPAY ==
[2019-12-30 13:05] VITALS: BMI 34.1
== END ==
LOC: OLS.ACH 08:19
PROVIDERS: Visit Provider Family Medicine
DX: Z03.818 Encounter for observation for suspected exposure to other biological agents ruled out (principal)
CPT/HCPCS: 87635; U0003

== ENCOUNTER → 2020-03-22 07:57 | Outpatient (REF) | payer MEDICARE, OTHER, SELFPAY ==
[2019-12-30 13:05] VITALS: BMI 34.1
== END ==
LOC: OLS.ACH 07:57
PROVIDERS: Referring Provider Family Medicine; Visit Provider Family Medicine
DX: Z03.818 Encounter for observation for suspected exposure to other biological agents ruled out (principal)
CPT/HCPCS: 87635; U0003

== ENCOUNTER → 2020-04-05 17:52 | Outpatient (REF) | payer MEDICARE, OTHER, SELFPAY ==
[2019-12-30 13:05] VITALS: BMI 34.1
== END ==
LOC: OLS.ACH 17:52
PROVIDERS: Referring Provider Family Medicine; Visit Provider Family Medicine
DX: Z03.818 Encounter for observation for suspected exposure to other biological agents ruled out (principal)
CPT/HCPCS: 87635; U0005; U0003

== ENCOUNTER → 2020-04-16 14:20 | Outpatient (REF) | payer MEDICARE, OTHER, SELFPAY ==
[2019-12-30 13:05] VITALS: BMI 34.1
[2020-04-16 16:24] LABS: Absolute Lymphocyte Count 0.76 X10^3/uL (0.83-4.51); Absolute Neutrophil Count 1.8 X10^3/uL (2.0-7.7); Basophil# 0.01 X10^3/uL; Basophil% 0.3 % (0-1); Eosinophil# 0.03 X10^3/uL; Hemoglobin 11.6 g/dL (12.0-15.0); Lymphocyte # 0.76 X10^3/ul (4.0); Lymphocyte % 25.9 % (19-41); Mean Corp Hgb Conc 32.2 g/dL (32-36); Mean Corpuscular Hgb 31.8 pg (27.0-32.0); Mean Corpuscular Volume 98.6 fL (81-99); Mean Platelet Vol. 10.9 fl (6.2-12.0); Monocyte# 0.38 X10^3/uL; Monocyte% 12.9 % (0-10); NRBC Flagged by Analyzer 0 % (0-5); Neutrophil # 1.75 X10^3/uL (2.7-7.7); Neutrophil % 59.6 % (47-70); Platelet Count 126 K/mm3 (150-450); RBC Distribution Width CV 11.3 % (11.6-14.6); RBC Distribution Width SD 41.1 fl (35.1-43.9); Red Blood Count 3.65 M/mm3 (4.2-5.4); White Blood Count 2.9 K/mm3 (4.4-11.0)
[2020-04-16 16:54] LABS: ALB/GLOB Ratio 1.1 RATIO (0.9-2.4); AST(SGOT) 32 U/L (15-37); Alanine Aminotransfer ALT/SGPT 35 U/L (13-56); Albumin, Serum 3.1 g/dL (3.2-5.0); Alkaline Phosphatase 138 U/L (45-117); Anion Gap 6 (5-15); BUN 25 mg/dL (7-18); BUN/Creat Ratio 22.5 RATIO (10-20); Calcium,Total 8.8 mg/dL (8.5-10.1); Chloride 100 mmol/L (98-107); Creatinine, Serum 1.11 mg/dL (0.55-1.02); EST Glomerular Filtration Rate 50 mL/min (>60); Est Glom Filt Rate - Afr Amer 61 mL/min (>60); Globulin 2.9 g/dL (2.2-4.2); Glucose 100 mg/dL (74-106); Potassium 4.4 mmol/L (3.5-5.1); Sodium Level 136 mmol/L (136-145)
== END ==
LOC: OLS.ACH 14:20
PROVIDERS: Referring Provider Family Medicine; Visit Provider Family Medicine
DX: Z03.818 Encounter for observation for suspected exposure to other biological agents ruled out (principal); J44.9 Chronic obstructive pulmonary disease, unspecified; N18.30 Chronic kidney disease, stage 3 unspecified; I50.9 Heart failure, unspecified
CPT/HCPCS: 80053; 85025

== ENCOUNTER 2020-04-18 12:43 | Emergency (ER) | payer MEDICARE, OTHER, SELFPAY ==
[2019-12-30 13:05] VITALS: BMI 34.1
[2020-04-18 12:45] VITALS: BP 162/85; PULSE 85; RESP 18; TEMP 37.1; O2SAT 96; BMI 32.4
--- NOTE | 2020-04-18 12:50 | ED.RN ---
pt has a bladder stimulator, [facility] lost the controller per ems.
[2020-04-18 12:51] VITALS: BP 121/107; O2SAT 96
[2020-04-18] MEDS: LORazepam 0.5 MG Tablet PO (13:57)
[2020-04-18 14:44] VITALS: BP 144/78; PULSE 72; RESP 16; O2SAT 95
--- NOTE | 2020-04-18 15:10 | ED.VIS.GEN ---
History of Present Illness Chief Complaint: Anxiety Informant: Patient, - - Documents that accompanied patient from nursing facility Onset: Days Context: - - Known since patient has mild dementia Timing: Continuous - Presumed Quality: Shortness of breath and anxiety Location: Covid test +13 days ago Current Severity: Mild Maximum Severity: Moderate Worsened by: When patient becomes anxious Relieved by: Nothing Associated Symptoms: She states she has no symptoms. She has a wound right lateral lower abdome Narrative: She is 79-year-old woman who presents from nursing facility. She has multiple medical problems. She had a positive Covid test approximate 13 days ago. She has been short of breath and anxious since then. She also has a wound on her lower lateral abdomen on the right side. She denies fever, chills night sweats. She denies any symptoms presently. She is not a good informant. Per nursing paperwork she is anxious and there is concern regarding the wound. Prior similar symptoms: Yes Recent Illness/Hospitalization: Yes - Past Medical History (1) Chronic ITP (idiopathic thrombocytopenia) Status: Chronic (2) Chronic atrial fibrillation Status: Chronic (3) Corneal dystrophy Status: Chronic (4) Degenerative arthritis Status: Chronic (5) Essential hypertension Status: Chronic (6) History of blood clots Status: Chronic (7) History of non-Hodgkin's lymphoma Status: Chronic (8) Hypothyroidism Status: Chronic (9) Osteoporosis Status: Chronic (10) Sleep apnea Status: Chronic (11) COVID-19 virus infection Status: Acute Past Medical History - Allergies and Home Meds Allergies/Adverse Reactions: Allergies gentamicin Adverse Reaction (Verified 04/18/20 12:50) shaking, dizziness Primary Care Physician: Care Physician,No Primary [Primary Care Provider] - Prior records reviewed: Yes Surgical History: cholecystectomy, - - Excisional debridement abdominal ulcerations and abdominal panniculectomy. Lives: Retirement Smoking Status: Never smoker Alcohol: None Drugs: None - Family History Maternal Family History: Family History (Last Reviewed 11/25/19 @ 14:[address] Bridgette Rod MD) Father Heart disease Cancer Mother No problems noted. Family History: Reports: - - Denies known paternal medical history including cardiac history. Review of Systems General: Denies: Chills, Fever, Malaise, Subjective, Sweats Eyes: Denies: Visual changes - bilaterally, Blurred Vision - bilaterally ENT: Denies: Rhinorrhea, Sore throat Cardiovascular: Denies: Chest pain, Palpitations Respiratory: Reports: Dyspnea. Denies: Cough, Sputum, Dyspnea on exertion Gastrointestinal: Denies: Nausea, Vomiting, Diarrhea, Constipation Genitourinary: Denies: Dysuria, Hematuria, Frequency Musculoskeletal: Denies: Myalgias, Arthralgias, Neck pain, Back pain Skin: Reports: Wounds. Denies: Rash Neurological: Reports: Weakness Endocrine: Denies: Polyuria, Polydipsia Physical Exam Vital Signs/Narrative: Vital Signs Temp Pulse Resp BP Pulse Ox 04/18/20 14:44 72 16 144/78 H 95 04/18/20 12:51 121/107 H 96 04/18/20 12:45 98.7 F 85 18 162/85 H 96 Inital Vital Signs reviewed: Yes General: Well nourished, Well developed, Obese, No Acute Distress Head: Normocephalic, Atraumatic Eyes: Perrl, EOMI. Negative for: Pale conjunctiva, Scleral icterus ENT: Moist mucous membranes, No rhinorrhea, TM's clear Neck: Supple, Nontender, No lymphadenopathy Cardiovascular: Regular rate, Normal S1, Normal S2, Irregular Respiratory: No distress, CTA bilaterally, Chest nontender Abdomen: Soft, Nontender, Nondistended, Normal bowel sounds, No masses, - - Breakdown of skin that is 1 cm x 1 cm. There is no erythema, warmth or induration. The skin is discolored and dark. There is no fluctuance. Rectal: Deferred Back: Nontender, Normal Inspection Extremities: Nontender, Edema Skin: Normal color, No rash Neurological: Alert, Cranial nerves II-XII grossly intact, Normal Strength, Normal Sensation. Negative for: Oriented x3 Psychological: Normal affect Diagnostic/Tx/Re-eval - Medical Decision Making His lab work from the shelter reveals she has neutropenia due to Covid. Feel that her dyspnea is due to Covid. And this probably has provoked her to be anxious. There is no work-up that is needed at this time. The wound is not infected and there is no concern for cellulitis. Patient was treated with Ativan for her anxiety and discharged back to the nursing facility. ED Disposition - Plan for ED Patient: Disposition: Longterm Facility Diagnosis: Dyspnea due to COVID-19, Neutropenia due to infection, Anxiety Instructions: Coronavirus Disease 2019 (COVID-19): Overview, ED Anxiety Reaction Referrals: Care Physician,No Primary [Primary Care Provider] -
[2020-04-18 16:27] VITALS: BP 139/87; PULSE 90; RESP 19; O2SAT 95
--- NOTE | 2020-04-18 17:12 | ED.RN ---
THIS RN CALLED REPORT TO [facility], NURSE WHITLEY. INFORMED THAT PT IS RETURING BACK TO FACILITY AND ANXIETY MEDS WERE GIVEN.
== END 2020-04-18 17:22 | disposition skilled nursing facility (03) ==
PROVIDERS: Emergency Provider Emergency Medicine
DX: D70.3 Neutropenia due to infection (principal); F41.9 Anxiety disorder, unspecified; R06.00 Dyspnea, unspecified; U07.1 COVID-19; S31.103A Unspecified open wound of abdominal wall, right lower quadrant without penetration into peritoneal cavity, initial encounter; X58.XXXA Exposure to other specified factors, initial encounter; Y93.9 Activity, unspecified; Y92.9 Unspecified place or not applicable; E66.9 Obesity, unspecified; I10 Essential (primary) hypertension; D69.3 Immune thrombocytopenic purpura; E03.9 Hypothyroidism, unspecified; F03.90 Unspecified dementia, unspecified severity, without behavioral disturbance, psychotic disturbance, mood disturbance, and anxiety; G47.30 Sleep apnea, unspecified; I48.20 Chronic atrial fibrillation, unspecified; M81.0 Age-related osteoporosis without current pathological fracture; Z85.72 Personal history of non-Hodgkin lymphomas; Z86.718 Personal history of other venous thrombosis and embolism; Z79.899 Other long term (current) drug therapy
CPT/HCPCS: 99284

== ENCOUNTER → 2020-04-21 21:10 | Outpatient (REF) | payer MEDICARE, OTHER, SELFPAY ==
[2020-04-18 12:45] VITALS: BMI 32.4
[2020-04-22 08:05] LABS: Mucous, Urine 0 SEEN /hpf (<or=2+); Red Blood Cells-Urine 0 SEEN /hpf (0-5)
[2020-04-22 08:17] LABS: Color, Urine Yellow (Yellow); Glucose, Dipstick Normal (Normal); Ketone-Dipstick Negative (Negative); Leukocyte Esterase-Dipstick 25 /ul (Negative); Nitrite-Dipstick Negative (Negative); Occult Blood-Urine Negative /ul (Negative); Protein-Dipstick Negative (Negative); Urine Bilirubin Dipstick Negative (Negative); Urine Clarity Sl. Cloudy (Clear); Urine Urobilinogen Normal (Normal)
[2020-04-22 08:23] LABS: Bacteria 1+ /hpf (None Seen); Squamous Epithelial Cells - UA 0-5 SEEN /hpf (5-10); White Blood Cells 0-5 SEEN /hpf (0-5)
== END ==
LOC: OLS.ACH 21:10
PROVIDERS: Visit Provider Family Medicine
DX: N39.0 Urinary tract infection, site not specified (principal); F03.90 Unspecified dementia, unspecified severity, without behavioral disturbance, psychotic disturbance, mood disturbance, and anxiety; R41.82 Altered mental status, unspecified
CPT/HCPCS: 81001; 87086; 87088

== ENCOUNTER → 2020-04-23 07:19 | Outpatient (REF) | payer MEDICARE, OTHER, SELFPAY ==
[2020-04-18 12:45] VITALS: BMI 32.4
[2020-04-24 07:20] LABS: Bacteria 0 SEEN /hpf (None Seen); Mucous, Urine 0 SEEN /hpf (<or=2+); Red Blood Cells-Urine 0 SEEN /hpf (0-5); Squamous Epithelial Cells - UA 0 SEEN /hpf (5-10); White Blood Cells 0 SEEN /hpf (0-5)
[2020-04-24 07:35] LABS: Color, Urine Yellow (Yellow); Glucose, Dipstick Normal (Normal); Ketone-Dipstick Negative (Negative); Leukocyte Esterase-Dipstick Negative /ul (Negative); Nitrite-Dipstick Negative (Negative); Occult Blood-Urine Negative /ul (Negative); Protein-Dipstick Negative (Negative); Urine Bilirubin Dipstick Negative (Negative); Urine Clarity Sl. Cloudy (Clear); Urine Urobilinogen Normal (Normal)
== END ==
LOC: OLS.ACH 07:19
PROVIDERS: Visit Provider Family Medicine
DX: N39.0 Urinary tract infection, site not specified (principal)
CPT/HCPCS: 81001; 87086

== ENCOUNTER → 2020-04-26 15:30 | Outpatient (REF) | payer MEDICARE, OTHER, SELFPAY ==
[2020-04-18 12:45] VITALS: BMI 32.4
[2020-04-26 16:56] LABS: Absolute Lymphocyte Count 0.34 X10^3/uL (0.83-4.51); Absolute Neutrophil Count 5.4 X10^3/uL (2.0-7.7); Basophil# 0.02 X10^3/uL; Basophil% 0.3 % (0-1); Eosinophil# 0.01 X10^3/uL; Eosinophils% 0.2 % (0-5); Hematocrit 41.1 % (37-47); Hemoglobin 13.5 g/dL (12.0-15.0); Lymphocyte # 0.34 X10^3/ul (4.0); Lymphocyte % 5.7 % (19-41); Mean Corp Hgb Conc 32.8 g/dL (32-36); Mean Corpuscular Hgb 32.3 pg (27.0-32.0); Mean Corpuscular Volume 98.3 fL (81-99); Mean Platelet Vol. 11.1 fl (6.2-12.0); Monocyte# 0.12 X10^3/uL; NRBC Flagged by Analyzer 0 % (0-5); Neutrophil # 5.44 X10^3/uL (2.7-7.7); Neutrophil % 91.1 % (47-70); POSITIVE DIFFERENTIAL YES; Platelet Count 124 K/mm3 (150-450); RBC Distribution Width CV 11.9 % (11.6-14.6); RBC Distribution Width SD 42.9 fl (35.1-43.9); Red Blood Count 4.18 M/mm3 (4.2-5.4)
[2020-04-26 16:57] LABS: Differential Indicated SCAN CRITERIA MET
[2020-04-26 17:18] LABS: Anion Gap 6 (5-15); BUN 30 mg/dL (7-18); BUN/Creat Ratio 26.5 RATIO (10-20); Calcium,Total 9.5 mg/dL (8.5-10.1); Chloride 99 mmol/L (98-107); Creatinine, Serum 1.13 mg/dL (0.55-1.02); EST Glomerular Filtration Rate 49 mL/min (>60); Est Glom Filt Rate - Afr Amer 59 mL/min (>60); Glucose 130 mg/dL (74-106); Potassium 4.9 mmol/L (3.5-5.1); Sodium Level 138 mmol/L (136-145)
[2020-04-26 17:34] LABS: Differential Comment SCANNED
== END ==
LOC: OLS.ACH 15:30
PROVIDERS: Referring Provider Family Medicine; Visit Provider Family Medicine
DX: R41.82 Altered mental status, unspecified (principal); Z03.818 Encounter for observation for suspected exposure to other biological agents ruled out
CPT/HCPCS: 80048; 85025

== ENCOUNTER → 2020-07-04 04:00 | Outpatient (REF) | payer MEDICARE, OTHER, SELFPAY ==
[2020-07-04 07:36] LABS: Thyroid Stim Hormone (TSH) 1.14 uIU/mL (0.358-3.74)
== END ==
LOC: OLS.ACH 04:00
PROVIDERS: Visit Provider Family Medicine
DX: E03.9 Hypothyroidism, unspecified (principal)
CPT/HCPCS: 36415; 84443

== ENCOUNTER → 2020-07-05 05:00 | Outpatient (REF) | payer MEDICARE, OTHER, SELFPAY ==
[2020-07-05 08:00] LABS: Absolute Neutrophil Count 1.7 X10^3/uL (2.0-7.7); Basophil# 0.01 X10^3/uL; Basophil% 0.3 % (0-1); Eosinophil# 0.14 X10^3/uL; Eosinophils% 4.2 % (0-5); Hematocrit 34.2 % (37-47); Hemoglobin 10.8 g/dL (12.0-15.0); Lymphocyte % 32.8 % (19-41); Mean Corp Hgb Conc 31.6 g/dL (32-36); Mean Corpuscular Volume 101.5 fL (81-99); Mean Platelet Vol. 11.6 fl (6.2-12.0); Monocyte# 0.43 X10^3/uL; Monocyte% 12.8 % (0-10); NRBC Flagged by Analyzer 0 % (0-5); Neutrophil # 1.66 X10^3/uL (2.7-7.7); Neutrophil % 49.6 % (47-70); Platelet Count 102 K/mm3 (150-450); RBC Distribution Width CV 12.6 % (11.6-14.6); RBC Distribution Width SD 47.4 fl (35.1-43.9); Red Blood Count 3.37 M/mm3 (4.2-5.4); White Blood Count 3.4 K/mm3 (4.4-11.0)
[2020-07-05 08:11] LABS: ALB/GLOB Ratio 1.2 RATIO (0.9-2.4); AST(SGOT) 24 U/L (15-37); Alanine Aminotransfer ALT/SGPT 23 U/L (13-56); Albumin, Serum 3.1 g/dL (3.2-5.0); Alkaline Phosphatase 93 U/L (45-117); Anion Gap 2 (5-15); BUN 30 mg/dL (7-18); BUN/Creat Ratio 22.4 RATIO (10-20); Chloride 106 mmol/L (98-107); Creatinine, Serum 1.34 mg/dL (0.55-1.02); EST Glomerular Filtration Rate 40 mL/min (>60); Est Glom Filt Rate - Afr Amer 49 mL/min (>60); Globulin 2.5 g/dL (2.2-4.2); Glucose 82 mg/dL (74-106); Potassium 4.5 mmol/L (3.5-5.1); Protein, Total 5.6 g/dL (6.4-8.2); Sodium Level 141 mmol/L (136-145)
== END ==
LOC: OLS.ACH 05:00
PROVIDERS: Visit Provider Family Medicine
DX: I13.0 Hypertensive heart and chronic kidney disease with heart failure and stage 1 through stage 4 chronic kidney disease, or unspecified chronic kidney disease (principal)
CPT/HCPCS: 36415; 80053; 85025

== ENCOUNTER → 2020-07-19 13:34 | Outpatient (CLI) | payer MEDICARE, OTHER, SELFPAY ==
--- NOTE | 2020-07-19 13:39 | CT_ITS ---
STUDY: CT BRAIN WITH AND WITHOUT CONTRAST REASON FOR EXAM: Female, 79 years old. CHANGE PARANOIA RADIATION DOSAGE (If Supplied By Facility): CTDIvol = ( 44.99 ) mGy, DLP = ( 1479.73 ) mGycm TECHNIQUE: Transaxial CT imaging of the brain was performed pre and post contrast administration. The examination was performed with intravenous administration of IV 50mL Isovue-370. Individualized dose optimization techniques were used for this CT. COMPARISON: None. FINDINGS: Normal soft tissue structures. Normal calvarium. There is mild cerebral atrophy with widening of the extra-axial spaces and ventricular dilatation. Normal white matter tracts of the cerebral hemispheres. There are small punctate calcifications of the basal ganglia which are seen in the aging brain as a normal variant. Normal brainstem. Calcification of the dentate nuclei of the cerebellum. There is no intracranial hemorrhage. There are no findings of an acute ischemic infarction. Normal visualized paranasal sinuses. CT/Brain/Head W/WO Contrast IMPRESSION: Chronic involutional changes of the brain. Electronically Signed: Ethan Connelly MD at 14:46 EDT , Service support ,
== END ==
PROVIDERS: PCP Family Medicine; Referring Provider Family Medicine; Visit Provider Family Medicine
DX: F22 Delusional disorders (principal)
CPT/HCPCS: 70470; Q9967

== ENCOUNTER → 2020-08-23 04:00 | Outpatient (REF) | payer MEDICARE, OTHER, SELFPAY ==
[2020-08-23 08:51] LABS: Anion Gap 3 (5-15); BUN 31 mg/dL (7-18); BUN/Creat Ratio 28.4 RATIO (10-20); Calcium,Total 8.9 mg/dL (8.5-10.1); Chloride 104 mmol/L (98-107); Creatinine, Serum 1.09 mg/dL (0.55-1.02); EST Glomerular Filtration Rate 51 mL/min (>60); Est Glom Filt Rate - Afr Amer 62 mL/min (>60); Glucose 90 mg/dL (74-106); Potassium 4.3 mmol/L (3.5-5.1); Sodium Level 141 mmol/L (136-145)
== END ==
LOC: OLS.ACH 04:00
PROVIDERS: PCP Family Medicine; Referring Provider Family Medicine; Visit Provider Family Medicine
DX: I13.0 Hypertensive heart and chronic kidney disease with heart failure and stage 1 through stage 4 chronic kidney disease, or unspecified chronic kidney disease (principal)
CPT/HCPCS: 36415; 80048

== ENCOUNTER → 2020-11-02 05:00 | Outpatient (REF) | payer MEDICARE, OTHER, SELFPAY ==
[2020-09-20 13:46] VITALS: BMI 32.5
[2020-11-02 07:26] LABS: Absolute Lymphocyte Count 1.32 X10^3/uL (0.83-4.51); Absolute Neutrophil Count 1.9 X10^3/uL (2.0-7.7); Basophil# 0.02 X10^3/uL; Basophil% 0.5 % (0-1); Hematocrit 32.7 % (37-47); Hemoglobin 10.5 g/dL (12.0-15.0); Lymphocyte # 1.32 X10^3/ul (0.83-4.51); Mean Corp Hgb Conc 32.1 g/dL (32-36); Mean Corpuscular Hgb 32.1 pg (27.0-32.0); Mean Platelet Vol. 11.3 fl (6.2-12.0); Monocyte# 0.56 X10^3/uL; NRBC Flagged by Analyzer 0 % (0-5); Neutrophil # 1.88 X10^3/uL (2.7-7.7); POSITIVE COUNT YES; Platelet Count 94 K/mm3 (150-450); RBC Distribution Width SD 47.5 fl (35.1-43.9); Red Blood Count 3.27 M/mm3 (4.2-5.4)
[2020-11-02 07:28] LABS: Differential Indicated SCAN CRITERIA MET
[2020-11-02 07:52] LABS: Platelet Estimate SLT DEC (ADEQ)
[2020-11-02 08:00] LABS: ALB/GLOB Ratio 1.4 RATIO (0.9-2.4); AST(SGOT) 26 U/L (15-37); Alanine Aminotransfer ALT/SGPT 26 U/L (13-56); Albumin, Serum 3.1 g/dL (3.2-5.0); Alkaline Phosphatase 97 U/L (45-117); Anion Gap 5 (5-15); BUN 36 mg/dL (7-18); BUN/Creat Ratio 29.3 RATIO (10-20); Calcium,Total 8.6 mg/dL (8.5-10.1); Chloride 107 mmol/L (98-107); Creatinine, Serum 1.23 mg/dL (0.55-1.02); EST Glomerular Filtration Rate 44 mL/min (>60); Est Glom Filt Rate - Afr Amer 54 mL/min (>60); Globulin 2.2 g/dL (2.2-4.2); Glucose 81 mg/dL (74-106); Protein, Total 5.3 g/dL (6.4-8.2); Sodium Level 144 mmol/L (136-145)
== END ==
LOC: OLS.ACH 05:00
PROVIDERS: PCP Family Medicine; Referring Provider Family Medicine; Visit Provider Family Medicine
DX: N18.30 Chronic kidney disease, stage 3 unspecified (principal); D50.9 Iron deficiency anemia, unspecified
CPT/HCPCS: 36415; 80053; 85025

== ENCOUNTER → 2020-12-03 05:29 | Outpatient (REF) | payer MEDICARE, OTHER, SELFPAY ==
[2020-12-03 05:30] LABS: Mucous, Urine 0 SEEN /hpf (<or=2+)
[2020-12-03 05:47] LABS: Color, Urine Yellow (Yellow); Glucose, Dipstick Normal (Normal); Ketone-Dipstick Negative (Negative); Leukocyte Esterase-Dipstick 500 /ul (Negative); Nitrite-Dipstick Negative (Negative); Occult Blood-Urine 250 /ul (Negative); Protein-Dipstick 30 mg/dl (Negative); Urine Bilirubin Dipstick Negative (Negative); Urine Clarity Sl. Cloudy (Clear); Urine Urobilinogen 1 mg/dl (Normal); Urine pH 6.5 (5.0 - 8.0)
[2020-12-03 05:56] LABS: Bacteria 2+ /hpf (None Seen); Red Blood Cells-Urine 0-5 SEEN /hpf (0-5); Squamous Epithelial Cells - UA 10-25 SEEN /hpf (5-10); Transitional Epithelial - Ur 0-5 SEEN /hpf (0-5); White Blood Cells 25-50 SEEN /hpf (0-5)
== END ==
LOC: OLS.ACH 05:29
PROVIDERS: PCP Family Medicine; Visit Provider Family Medicine
DX: R33.9 Retention of urine, unspecified (principal)
CPT/HCPCS: 81001; 87077; 87086; 87088; 87186

== ENCOUNTER 2020-12-07 18:56 | Inpatient (IN) | payer MEDICARE, OTHER, SELFPAY ==
[2020-12-07 18:57] VITALS: BP 120/78; PULSE 88; RESP 18; TEMP 36.9; O2SAT 94; BMI 30.7
--- NOTE | 2020-12-07 19:19 | CT_ITS ---
STUDY: CT RIGHT HIP WITHOUT CONTRAST REASON FOR EXAM: Female, 80 years old. Trauma. RADIATION DOSAGE (If Supplied By Facility): CTDIvol = ( 27.66 ) mGy, DLP = ( 858.78 ) mGycm TECHNIQUE: Transaxial imaging of the right hip was performed without oral contrast, and without intravenous administration of contrast material. Multiplanar coronal and sagittal images were reformatted. Individualized dose optimization techniques were used for this CT. COMPARISON: None. FINDINGS: The visualized bowel appears normal. Normal appendix. Visualized urinary bladder is normal. There is atherosclerotic changes of the pelvic vasculature. The visualized sacrum, sacroiliac joint and right iliac wing appear normal. Normal right superior and inferior pubic rami. Abnormal initial tuberosities. There appears to be a subcapital fracture of the right femur with impaction of the femoral neck into the femoral head. The femur is otherwise unremarkable. Femoral head remains in normal alignment with the acetabulum. There is mild joint space narrowing. CT/Extremity Lower without Contra IMPRESSION: Impacted fracture of the right femoral neck without dislocation. Electronically Signed: Brown Vail DO at 20:40 EDT Tel [phone], Service support ,
--- NOTE | 2020-12-07 19:22 | EDS_ITS ---
HPI HPI - Fall History of Present Illness Chief Complaint: Fall Narrative Narrative: [facility] She sustained a mechanical fall yesterday and hurt her right hip. Apparently she had an x-ray which was inconclusive at the [facility]. Apparently there is no other injury, I cannot get a history from her because she has dementia. She can tell me her name but she is otherwise disoriented to anything else. [facility] Medical History (Updated 12/07/20 @ 20:[address] Jose Alfredo Aguilar MD) Chronic atrial fibrillation Chronic pain Corneal dystrophy Cutaneous abscess of abdominal wall Degenerative arthritis Essential hypertension Generalized weakness History of blood clots History of pulmonary embolus (PE) Hypothyroidism Intertriginous dermatitis associated with moisture Iron deficiency anemia due to chronic blood loss Iron deficiency anemia due to dietary causes detention current use of anticoagulant Necrotizing soft tissue infection Osteoporosis Pannus, abdominal Paroxysmal atrial flutter Pulmonary embolism Skin ulcer Skin ulcer of abdominal wall with fat layer exposed Sleep apnea Tear of skin of left buttock Home Medications artificial tears(hypromellose) 0.3 % eye gel 1 drp EACH EYE 4X/DAY PRN 05/24/17 [History Last Taken Unknown] prednisolone acetate 1 % eye drops,suspension 1 drp RIGHT EYE DAILY 05/24/17 [History Last Taken 02/25/19] docusate sodium 100 mg capsule 100 mg PO BID cap 09/24/18 [History Last Taken 02/25/19] krill oil 500 mg PO DAILY 12/16/18 [History Last Taken 02/24/19] acetaminophen 2 tab PO TID PRN PRN 01/02/19 [History Last Taken 02/24/19] benzonatate 100 mg PO TID PRN PRN 01/02/19 [History Last Taken Unknown] bisacodyl 10 mg RECTAL PRN PRN 01/02/19 [History Last Taken Unknown] sennosides-docusate sodium 1 ea PO DAILY PRN 01/02/19 [History Last Taken Unknown] sodium chloride 1 drp EACH EYE BID PRN PRN 01/02/19 [History Last Taken Unknown] magnesium hydroxide 30 ml PO DAILY PRN 02/25/19 [History Last Taken Unknown] promethazine 25 mg PO Q8H PRN PRN 02/25/19 [History Last Taken Unknown] food supplemt, lactose-reduced 120 ml PO 4X/DAY liquid 02/28/19 [Rx Last Taken Unknown] levothyroxine 100 mcg PO DAILY 09/22/19 [History Last Taken Unknown] acetaminophen 500 mg tablet 1,000 mg PO QHS tab 10/27/19 [History Last Taken Unknown] cholecalciferol (vitamin D3) 25 mcg (1,000 unit) tablet 25 mcg PO DAILY 10/27/19 [History Last Taken Unknown] cyanocobalamin (vitamin B-12) 500 mcg tablet 500 mcg PO DAILY 10/27/19 [History Last Taken Unknown] diltiazem HCl 180 mg capsule,24 hr,extended release 180 mg PO DAILY 10/27/19 [History Last Taken Unknown] melatonin 3 mg tablet 3 mg PO HS 10/27/19 [History Last Taken Unknown] multivitamin 1 tab PO DAILY 10/27/19 [History Last Taken Unknown] oxycodone 5 mg tablet 5 mg PO Q4H PRN PRN 10/27/19 [History Last Taken Unknown] pantoprazole 40 mg tablet,delayed release 40 mg PO DAILY tab 10/27/19 [History Last Taken Unknown] solifenacin 10 mg tablet 10 mg PO DAILY 10/27/19 [History Last Taken Unknown] trolamine salicylate 10 % topical cream 1 applic TOPICAL BID PRN 10/27/19 [History Last Taken Unknown] travoprost 0.004 % eye drops OPHTHALMIC 11/25/19 [History Last Taken Unknown] buspirone 5 mg tablet 10 mg PO BID tab 12/30/19 [History Last Taken Unknown] cetirizine 10 mg capsule 5 mg PO DAILY cap 12/30/19 [History Last Taken Unknown] furosemide 20 mg tablet 20 mg PO DAILY tab 12/30/19 [History Last Taken Unknown] lisinopril 10 mg tablet 10 mg PO BID tab 12/30/19 [History Last Taken Unknown] Allergy/AdvReac Type Severity Reaction Status Date / Time gentamicin AdvReac shaking, Verified 09/20/20 13:48 dizziness Family History Father Heart disease Cancer prostate Mother No problems noted. Surgical History History of Achilles tendon repair History of cholecystectomy History of colonoscopy History of left heart catheterization (09/19/16) Social History Smoking Status: Never smoker alcohol intake: never substance use type: does not use what type of physical activity do you participate in: none ROS ROS ED Review of Systems ROS Unobtainable: due to mental condition EXAM Physical Exam Narrative Exam Narrative: Physical exam General: Patient appears chronically ill, she is laying on bed Head: Normocephalic, Atraumatic Eyes: Conjunctiva not pale ENT: Dry mucous membranes Neck: Supple, Nontender, No lymphadenopathy Cardiovascular: Regular rate, Regular rhythm Respiratory: Coarse bilateral breath sounds, she is not in any distress Abdomen: Soft, Nontender, Nondistended Back: Nontender, Normal Inspection. Negative for: CVA tenderness Extremities: Right hip is not shortened but it is externally rotated and she has quite a bit of pain to logroll as well as flexion and extension. Normal distal pulses. Skin: Normal color, No rash Neurological: Alert, oriented to person only but no focal deficit. Const Vital Signs: 12/07/20 18:57 12/07/20 19:41 Temperature 98.4 F Temperature Source Temporal Pulse Rate 88 Respiratory Rate 18 Respiratory Effort Normal Non-Labored Blood Pressure 120/78 Blood Pressure Mean 92 Pulse Ox 94 Oxygen Delivery Method Nasal Cannula Venturi Mask Oxygen Flow Rate (L/min) 4 4 MDM MDM MDM Narrative Medical decision making narrative: CT of the hip shows impacted femoral neck fracture. I will admit her. Lab Data Labs: Laboratory Results - last 24 hr 12/07/20 12/07/20 19:39 19:39 WBC 6.1 RBC 3.48 L Hgb 11.2 L Hct 35.9 L MCV 103.2 H MCH 32.2 H MCHC 31.2 L RDW Std Deviation 48.3 H RDW Coeff of Migdalia 12.7 Plt Count 84 L MPV 11.1 Immature Gran % (Auto) 0.500 Neut % (Auto) 75.9 H Lymph % (Auto) 10.9 L [place] % (Auto) 7.4 Eos % (Auto) 4.8 Baso % (Auto) 0.5 Absolute Neuts (auto) 4.6 Absolute Lymphs (auto) 0.66 L Nucleated RBC % 0 Sodium 139 Potassium 4.6 Chloride 102 Carbon Dioxide 33.0 H Anion Gap 4 L BUN 42 H Creatinine 2.30 H Estim Creat Clear Calc 16.28 Est GFR (MDRD) Af Amer 26 L Est GFR (MDRD) Non-Af 22 L BUN/Creatinine Ratio 18.3 Glucose 108 H Calcium 8.8 Total Bilirubin 1.00 AST 42 H ALT 41 Alkaline Phosphatase 128 H Total Protein 6.0 L Albumin 3.0 L Globulin 3.0 Albumin/Globulin Ratio 1.0 Radiography Diagnostic Testing: Radiology Impression Lower Extremity CT 12/07/20 19:19 IMPRESSION: Impacted fracture of the right femoral neck without dislocation. Electronically Signed: Brown Vail DO at 20:40 EDT Tel [phone], Service support , Chest X-Ray 12/07/20 19:45 IMPRESSION: Degenerative changes, as described above. No demonstrated acute cardiopulmonary process. Electronically Signed: Brown Vail DO at 20:43 EDT Tel [phone], Service support , Discharge Plan Triage Chief Complaint: Fall ED Provider: Jose Alfredo Aguilar Dx/Rx/DC Orders Clinical Impression: Closed hip fracture, Fall Prescriptions: No Action prednisolone acetate 1 % drops,suspension 1 drp RIGHT EYE DAILY RF: 0 artificial tears(hypromellose) [Systane Gel] 0.3 % gel 1 drp EACH EYE 4X/DAY PRN (Reason: Dry Eyes) RF: 0 docusate sodium 100 mg capsule 100 mg PO BID RF: 0 travoprost 0.004 % drops OPHTHALMIC RF: 0 multivitamin Tablet 1 tab PO DAILY RF: 0 cholecalciferol (vitamin D3) 25 mcg (1,000 unit) tablet 25 mcg PO DAILY RF: 0 diltiazem HCl 180 mg capsule,extended release 24 hr 180 mg PO DAILY RF: 0 acetaminophen 500 mg tablet 1,000 mg PO QHS RF: 0 melatonin 3 mg tablet 3 mg PO HS RF: 0 solifenacin 10 mg tablet 10 mg PO DAILY RF: 0 trolamine salicylate 10 % cream 1 applic TOPICAL BID PRNRF: 0 cyanocobalamin (vitamin B-12) [Vitamin B-12] 500 mcg tablet 500 mcg PO DAILY RF: 0 lisinopril 10 mg tablet 10 mg PO BID RF: 0 buspirone 5 mg tablet 10 mg PO BID RF: 0 furosemide 20 mg tablet 20 mg PO DAILY RF: 0 cetirizine 10 mg capsule 5 mg PO DAILY RF: 0 levothyroxine 100 MCG tablet 100 mcg PO DAILY RF: 0 oxycodone 5 mg tablet 5 mg PO Q4H PRN PRN (Reason: Pain Or Fever) RF: 0 krill oil 500 MG capsule 500 mg PO DAILY RF: 0 sennosides-docusate sodium 1 EACH tablet 1 ea PO DAILY PRN (Reason: Constipation) RF: 0 acetaminophen 500 MG tablet 2 tab PO TID PRN PRN (Reason: Pain Or Fever) RF: 0 benzonatate 100 MG capsule 100 mg PO TID PRN PRN (Reason: Cough) RF: 0 bisacodyl 10 MG suppository 10 mg RECTAL PRN PRN (Reason: Constipation) RF: 0 sodium chloride 1 DROP drops 1 drp EACH EYE BID PRN PRN (Reason: endothelial dystrophy) RF: 0 magnesium hydroxide 30 ML suspension 30 ml PO DAILY PRN (Reason: Constipation) RF: 0 promethazine 25 MG tablet 25 mg PO Q8H PRN PRN (Reason: Nausea/Vomiting) RF: 0 food supplemt, lactose-reduced 120 ML liquid 120 ml PO 4X/DAY RF: 0 pantoprazole 40 mg tablet,delayed release (DR/EC) 40 mg PO DAILY RF: 0 Primary Care Provider: Chung Marcos Referrals: Chung Marcos DO [Primary Care Provider] - Disposition Disposition: Acute Care Hospital [facility]
--- NOTE | 2020-12-07 19:22 | EKG12_ITS ---
Test Reason : DYSRHYTHMIA Blood Pressure : / mmHG Vent. Rate : 077 BPM Atrial Rate : 077 BPM P-R Int : 384 ms QRS Dur : 116 ms QT Int : 390 ms P-R-T Axes : 027 -20 058 degrees QTc Int : 441 ms Sinus rhythm with 1st degree A-V block Incomplete left bundle branch block Borderline ECG Confirmed by DELMER MENDOZA, MARCO ([id number]), assignment desk editor MELANIA CHRISTOPHER ([id number]) on 12/08/2020 10:39:46 AM Referred By: COLEMAN Confirmed By:MARCO DOWELL MD
--- NOTE | 2020-12-07 19:45 | RAD_ITS ---
STUDY: X-RAY CHEST REASON FOR EXAM: Female, 80 years old. Pre-op. TECHNIQUE: Single AP portable view of the chest. COMPARISON: 02/17/2018. CT of the chest, 12/08/2019. FINDINGS: The lungs are clear and expanded. There is no demonstrated pleural abnormality. Normal size heart. Normal mediastinum and radames. Normal visualized pulmonary arteries. There is atherosclerotic calcification of the aortic arch with tortuosity. There are diffuse degenerative changes of the visualized thoracic spine. There is degenerative osteoarthritis of the bilateral shoulders. There are surgical clips in the left upper quadrant. RAD/Chest 1 View (Portable) IMPRESSION: Degenerative changes, as described above. No demonstrated acute cardiopulmonary process. Electronically Signed: Brown Vail DO at 20:43 EDT Tel [phone], Service support ,
[2020-12-07 19:48] LABS: Absolute Lymphocyte Count 0.66 X10^3/uL (0.83-4.51); Absolute Neutrophil Count 4.6 X10^3/uL (2.0-7.7); Basophil# 0.03 X10^3/uL; Basophil% 0.5 % (0-1); Eosinophil# 0.29 X10^3/uL; Eosinophils% 4.8 % (0-5); Hematocrit 35.9 % (37-47); Hemoglobin 11.2 g/dL (12.0-15.0); Lymphocyte # 0.66 X10^3/ul (0.83-4.51); Lymphocyte % 10.9 % (19-41); Mean Corp Hgb Conc 31.2 g/dL (32-36); Mean Corpuscular Hgb 32.2 pg (27.0-32.0); Mean Corpuscular Volume 103.2 fL (81-99); Mean Platelet Vol. 11.1 fl (6.2-12.0); Monocyte# 0.45 X10^3/uL; Monocyte% 7.4 % (0-10); NRBC Flagged by Analyzer 0 % (0-5); Neutrophil # 4.61 X10^3/uL (2.7-7.7); Neutrophil % 75.9 % (47-70); POSITIVE COUNT YES; Platelet Count 84 K/mm3 (150-450); RBC Distribution Width CV 12.7 % (11.6-14.6); RBC Distribution Width SD 48.3 fl (35.1-43.9); Red Blood Count 3.48 M/mm3 (4.2-5.4); White Blood Count 6.1 K/mm3 (4.4-11.0)
[2020-12-07 20:04] LABS: AST(SGOT) 42 U/L (15-37); Alanine Aminotransfer ALT/SGPT 41 U/L (13-56); Alkaline Phosphatase 128 U/L (45-117); Anion Gap 4 (5-15); BUN 42 mg/dL (7-18); BUN/Creat Ratio 18.3 RATIO (10-20); Calcium,Total 8.8 mg/dL (8.5-10.1); Chloride 102 mmol/L (98-107); EST Glomerular Filtration Rate 22 mL/min (>60); Est Glom Filt Rate - Afr Amer 26 mL/min (>60); Estimated Creatinine Clearance 16.28 ml/min; Glucose 108 mg/dL (74-106); Potassium 4.6 mmol/L (3.5-5.1); Sodium Level 139 mmol/L (136-145)
--- NOTE | 2020-12-07 21:08 | PCM.HP.STD ---
HPI - General General Date of Admission: 12/07/20 HPI Narrative JEAN PAUL LICEA, is a 80 F with a significant history of dementia; chronic atrial fibrillation and who lives at a [place] [facility] presenting with a fall. Reportedly patient fell a day before presentation. X-[place] at the [place] [facility] was unremarkable. However because patient had persistent pain at her right hip she was brought to the emergency department. History was taken for emergent department doctor as patient has dementia and is unable to contribute to history. [facility] Medical History Allergic rhinitis Alzheimer disease Atrial fibrillation Bilateral primary osteoarthritis of hip Chronic acquired pure red cell aplasia Chronic atrial fibrillation Chronic gastrojejunal ulcer Chronic kidney disease Chronic pain Corneal dystrophy Cutaneous abscess of abdominal wall Degenerative arthritis Dementia Dysphasia Endothelial corneal dystrophy Essential hypertension Generalized weakness Glaucoma Hallucination Heart failure History of blood clots History of COVID-19 History of pulmonary embolus (PE) Hypertension Hypothyroidism Immune thrombocytopenia Incontinence Insomnia Intertriginous dermatitis associated with moisture Intervertebral disc degeneration Iron deficiency anemia Iron deficiency anemia due to chronic blood loss Iron deficiency anemia due to dietary causes penitentiary current use of anticoagulant Lower back pain Necrotizing soft tissue infection Neutropenia Osteoporosis Overactive bladder Pannus, abdominal Paroxysmal atrial flutter Peripheral vascular disease Psychotic disorder with delusions Pulmonary embolism Pulmonary embolism Skin ulcer Skin ulcer of abdominal wall with fat layer exposed Sleep apnea Tear of skin of left buttock Home Medications artificial tears(hypromellose) 0.3 % eye gel 1 drp EACH EYE 4X/DAY PRN 05/24/17 [History Last Taken 12/07/20] prednisolone acetate 1 % eye drops,suspension 1 drp RIGHT EYE DAILY 05/24/17 [History Last Taken 12/07/20] docusate sodium 100 mg capsule 100 mg PO BID cap 09/24/18 [History Last Taken 12/07/20] krill oil 500 mg PO DAILY 12/16/18 [History Last Taken 12/07/20] acetaminophen 2 tab PO TID PRN PRN 01/02/19 [History Last Taken 02/24/19] benzonatate 100 mg PO TID PRN PRN 01/02/19 [History Last Taken Unknown] bisacodyl 10 mg RECTAL PRN PRN 01/02/19 [History Last Taken 12/03/20] sennosides-docusate sodium 1 ea PO DAILY PRN 01/02/19 [History Last Taken 12/07/20] sodium chloride 1 drp EACH EYE BID PRN PRN 01/02/19 [History Last Taken Unknown] magnesium hydroxide 30 ml PO DAILY PRN 02/25/19 [History Last Taken 12/02/20] promethazine 25 mg PO Q8H PRN PRN 02/25/19 [History Last Taken Unknown] levothyroxine 100 mcg PO DAILY 09/22/19 [History Last Taken 12/07/20] acetaminophen 500 mg tablet 1,000 mg PO BID tab 10/27/19 [History Last Taken 12/07/20] cholecalciferol (vitamin D3) 25 mcg (1,000 unit) tablet 25 mcg PO DAILY 10/27/19 [History Last Taken 12/07/20] cyanocobalamin (vitamin B-12) 500 mcg tablet 500 mcg PO DAILY 10/27/19 [History Last Taken 12/07/20] diltiazem HCl 180 mg capsule,24 hr,extended release 180 mg PO DAILY 10/27/19 [History Last Taken 12/07/20] oxycodone 5 mg tablet 5 mg PO BID 10/27/19 [History Last Taken 12/07/20] pantoprazole 40 mg tablet,delayed release 40 mg PO DAILY tab 10/27/19 [History Last Taken 12/07/20] solifenacin 10 mg tablet 10 mg PO DAILY 10/27/19 [History Last Taken 12/07/20] trolamine salicylate 10 % topical cream 1 applic TOPICAL BID PRN 10/27/19 [History Last Taken Unknown] buspirone 5 mg tablet 10 mg PO BID tab 12/30/19 [History Last Taken 12/07/20] furosemide 20 mg tablet 20 mg PO SUTUTHSA tab 12/30/19 [History Last Taken 12/06/20] lisinopril 10 mg tablet 2.5 mg PO DAILY tab 12/30/19 [History Last Taken 12/07/20] furosemide [Lasix] 40 mg PO MOWEFR 12/07/20 [History Last Taken 12/07/20] latanoprost 1 drp RIGHT EYE QHS 12/07/20 [History Last Taken 12/06/20] lorazepam 0.5 mg PO Q6H PRN PRN 12/07/20 [History Last Taken 12/06/20] lorazepam [Ativan] 0.5 mg PO DAILY 12/07/20 [History Last Taken Unknown] multivitamin [Daily-Katlin] 1 tab PO DAILY 12/07/20 [History Last Taken 12/07/20] oxycodone 5 mg PO Q4H PRN 12/07/20 [History Last Taken 12/07/20] polysaccharide iron complex [Ferrex 150] 150 mg PO DAILY 12/07/20 [History Last Taken 12/07/20] quetiapine [Seroquel] 25 mg PO DAILY 12/07/20 [History Last Taken 12/07/20] quetiapine [Seroquel] 50 mg PO LUNCH 12/07/20 [History Last Taken 12/07/20] quetiapine [Seroquel] 50 mg PO QHS 12/07/20 [History Last Taken 12/07/20] sertraline 50 mg PO DAILY 12/07/20 [History Last Taken 12/06/20] sucralfate [Carafate] 1 g PO BID 12/07/20 [History Last Taken Unknown] sulfamethoxazole-trimethoprim [Bactrim DS] 1 tab PO BID 12/07/20 [History Last Taken 12/07/20] Allergy/AdvReac Type Severity Reaction Status Date / Time gentamicin AdvReac shaking, Verified 09/20/20 13:48 dizziness Family History Father Heart disease Cancer prostate Mother No problems noted. Surgical History History of Achilles tendon repair History of cholecystectomy History of colonoscopy History of left heart catheterization (09/19/16) Social History Smoking Status: Never smoker alcohol intake: never substance use type: does not use what type of physical activity do you participate in: none ROS Review of Systems ROS Unobtainable: due to mental status Vital Signs Vital Signs Vital Signs: 12/07/20 18:57 12/07/20 19:41 Temperature 98.4 F Temperature Source Temporal Pulse Rate 88 Respiratory Rate 18 Respiratory Effort Normal Non-Labored Blood Pressure 120/78 Blood Pressure Mean 92 Pulse Ox 94 Oxygen Delivery Method Nasal Cannula Venturi Mask Oxygen Flow Rate (L/min) 4 4 Weight Weight: 81.1 kg Body Mass Index (BMI) 30.7 Physical Exam Narrative Physical exam: General: Elderly female; well-nourished, well-developed. Head: Normocephalic, atraumatic, no tenderness Eyes: PERRLA, EOMI ENT, no trauma, moist mucous membranes, no rhinorrhea Neck: Nontender, full range of motion, no spinal tenderness, deformities, step-off CVS: Regular rate and rhythm. S1-S2 present. No murmur, gallop or rub. Respiratory : clear to auscultation bilaterally, chest wall nontender, no wheezing Abdomen: Soft, nontender, nondistended, normal bowel sounds, no masses : Deferred Back: Nontender, no CVA tenderness, no midline spinal tenderness, deformities, step-offs Extremities: Skin tender at the right elbow. Externally rotated right foot. Left foot is unremarkable. Skin: Normal color, no trauma, abrasions Neuro: Alert, confused. Psychiatry: Normal mood. Normal affect. Not depressed. Not anxious. Results Lab / Micro Data Result Diagrams: 12/07/20 19:39 12/07/20 19:39 Labs: Laboratory Results - last 24 hr 12/07/20 19:39: WBC 6.1, RBC 3.48 L, Hgb 11.2 L, Hct 35.9 L, MCV 103.2 H, MCH 32.2 H, MCHC 31.2 L, RDW Std Deviation 48.3 H, RDW Coeff of Migdalia 12.7, Plt Count 84 L, MPV 11.1, Immature Gran % (Auto) 0.500, Neut % (Auto) 75.9 H, Lymph % (Auto) 10.9 L, [place] % (Auto) 7.4, Eos % (Auto) 4.8, Baso % (Auto) 0.5, Absolute Neuts (auto) 4.6, Absolute Lymphs (auto) 0.66 L, Nucleated RBC % 0 12/07/20 19:39: Sodium 139, Potassium 4.6, Chloride 102, Carbon Dioxide 33.0 H, Anion Gap 4 L, BUN 42 H, Creatinine 2.30 H, Estim Creat Clear Calc 16.28, Est GFR (MDRD) Af Amer 26 L, Est GFR (MDRD) Non-Af 22 L, BUN/Creatinine Ratio 18.3, Glucose 108 H, Calcium 8.8, Total Bilirubin 1.00, AST 42 H, ALT 41, Alkaline Phosphatase 128 H, Total Protein 6.0 L, Albumin 3.0 L, Globulin 3.0, Albumin/Globulin Ratio 1.0 Radiology Impression Lower Extremity CT 12/07/20 19:19 IMPRESSION: Impacted fracture of the right femoral neck without dislocation. Electronically Signed: Brown VailDO at 20:40 EDT Tel [phone], Service support , Chest X-Ray 12/07/20 19:45 IMPRESSION: Degenerative changes, as described above. No demonstrated acute cardiopulmonary process. Electronically Signed: Brown VailDO at 20:43 EDT Tel [phone], Service support , Assessment & Plan Assessment/Plan (1) Closed hip fracture: QUALIFIERS: Encounter type: initial encounter Laterality: right Qualified Code(s): S72.001A - Fracture of unspecified part of neck of right femur, initial encounter for closed fracture (2) Fall: QUALIFIERS: Encounter type: initial encounter Qualified Code(s): W19.XXXA - Unspecified fall, initial encounter PLAN: Impacted fracture of the right femoral neck without dislocation. CT of extremity lower without contrast: Impacted fracture of the right femoral neck without dislocation. Actual CT image was independently interpreted and agree radiologist interpretation. Emergent department doctor discussed the case with Dr. Mathis. Inpatient consult for orthopedic surgery. Tylenol as needed ordered. Home oxycodone as needed continued. Bowel protocol and antiemetics IV ordered. Keep n.p.o. after midnight While n.p.o. lactated Ringer's ordered. Check vitamin D level. Preoperative EKG with first-degree AV block and incomplete left bundle branch block. ACS NSQIP surgical risk calculator with is below average risk for cardiac. Risk for any complication is above average. [facility]. 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 Baseline creatinine is around 1.25. BUN is 42. BUN/creatinine is 18.3. Likely prerenal entry into the intrinsic renal. Avoid nephrotoxins. Trend BMP. Thrombocytopenia Review of medical department labs showed platelets of 84, Chronic but lower than baseline. Trend CBC. Hypertension Blood pressure is stable Home blood pressure medication continued. Trend blood pressure and adjust blood pressure medications. Acute UTI Home Bactrim continued. DVT prophylaxis SCD ordered. Patient is not a candidate of thromboprophylaxis secondary to thrombocytopenia and also being a candidate for surgery. Charges/Coding Visit Charges Inpatient E&M: 73068 Init Hosp L3
[2020-12-07 21:32] VITALS: BP 106/66; PULSE 83; RESP 18; TEMP 37.1; O2SAT 95
--- NOTE | 2020-12-07 21:37 | ED.RN ---
REPORT CALLED TO [facility] ELIZABETH OVALLES, FOR ADMISSION OF PT
[2020-12-07 22:57] VITALS: BP 115/101; PULSE 92; RESP 18; TEMP 36.3; O2SAT 96
[2020-12-08] VITALS (14 sets, daily range): BP systolic 105–145; BP diastolic 47–122; PULSE 75–97; RESP 16–20; TEMP 36.2–38; O2SAT 90–98
[2020-12-08] MEDS: Lactated Ringers 1,000 ML 75 ML IV (00:42)
[2020-12-08] MEDS: QUEtiapine 25 MG Tablet PO (05:47)
[2020-12-08] MEDS: Levothyroxine 100 MCG Tablet PO (05:48)
[2020-12-08] MEDS: Sucralfate 1 GM Tablet PO ×2 (05:48→21:46)
[2020-12-08 07:02] LABS: Absolute Lymphocyte Count 0.54 X10^3/uL (0.83-4.51); Absolute Neutrophil Count 6.3 X10^3/uL (2.0-7.7); Basophil# 0.03 X10^3/uL; Basophil% 0.4 % (0-1); Eosinophil# 0.27 X10^3/uL; Eosinophils% 3.5 % (0-5); Hematocrit 36.8 % (37-47); Hemoglobin 11.2 g/dL (12.0-15.0); Lymphocyte # 0.54 X10^3/ul (0.83-4.51); Mean Corp Hgb Conc 30.4 g/dL (32-36); Mean Corpuscular Hgb 32.8 pg (27.0-32.0); Mean Corpuscular Volume 107.9 fL (81-99); Mean Platelet Vol. 11.3 fl (6.2-12.0); Monocyte# 0.55 X10^3/uL; Monocyte% 7.1 % (0-10); NRBC Flagged by Analyzer 0 % (0-5); Neutrophil # 6.31 X10^3/uL (2.7-7.7); Neutrophil % 81.7 % (47-70); POSITIVE COUNT YES; POSITIVE DIFFERENTIAL YES; Platelet Count 75 K/mm3 (150-450); RBC Distribution Width CV 12.5 % (11.6-14.6); RBC Distribution Width SD 50.1 fl (35.1-43.9); Red Blood Count 3.41 M/mm3 (4.2-5.4); White Blood Count 7.7 K/mm3 (4.4-11.0)
[2020-12-08 07:12] LABS: Differential Indicated SCAN CRITERIA MET
[2020-12-08 07:22] LABS: Differential Comment SCANNED; Platelet Estimate SLT DEC (ADEQ)
[2020-12-08 07:42] LABS: Anion Gap 6 (5-15); BUN 40 mg/dL (7-18); BUN/Creat Ratio 20.3 RATIO (10-20); Calcium,Total 8.7 mg/dL (8.5-10.1); Chloride 103 mmol/L (98-107); Creatinine, Serum 1.97 mg/dL (0.55-1.02); EST Glomerular Filtration Rate 26 mL/min (>60); Est Glom Filt Rate - Afr Amer 31 mL/min (>60); Estimated Creatinine Clearance 19.01 ml/min; Glucose 93 mg/dL (74-106); Potassium 4.6 mmol/L (3.5-5.1); Sodium Level 138 mmol/L (136-145)
[2020-12-08] MEDS: busPIRone 5 MG Tablet 10 MG PO ×2 (08:36→21:47)
[2020-12-08] MEDS: dilTIAZem CD 180 MG Capsule PO (08:38)
[2020-12-08] MEDS: Cephalexin 500 MG Capsule PO (08:39)
[2020-12-08] MEDS: prednisoLONE eye drops (5 mL) 1 DROP OPTH.BTL 1 DRP OPHTHALMIC (08:39)
[2020-12-08] MEDS: Pantoprazole Sodium 40 MG Tablet PO (08:40)
[2020-12-08] MEDS: Acetaminophen 500 MG Tablet 1000 MG PO ×2 (08:40→21:46)
[2020-12-08] MEDS: Sertraline 50 MG Tablet PO (08:42)
[2020-12-08] MEDS: LORazepam 0.5 MG Tablet PO (08:46)
--- NOTE | 2020-12-08 08:47 | PCM.PN.HOSP ---
Subjective Subjective Patient is pleasantly confused. Blood pressure is in normal range. 99.2 Fahrenheit. No high-grade fever. Objective Data Objective Data Vital Signs: Vital Signs Temp Pulse Resp BP Pulse Ox 98.4 F 90 16 122/62 H 94 12/08/20 04:20 12/08/20 04:20 12/08/20 04:20 12/08/20 04:20 12/08/20 04:20 Oxygen Flow Rate (L/min) 4 Oxygen Delivery Method Nasal Cannula Weight: 121 lb 11.475 oz Body Mass Index (BMI) 30.7 Intake & Output: Intake and Output for Last 24 Hours 12/06/20 12/07/20 12/08/20 23:59 23:59 23:59 Intake Total 160 / 160 Output Total 500 / 500 Balance -340 / -340 Lab / Micro Data Result Diagrams: 12/08/20 06:36 12/08/20 06:36 Labs: Laboratory Results - last 24 hr 12/07/20 19:39: WBC 6.1, RBC 3.48 L, Hgb 11.2 L, Hct 35.9 L, MCV 103.2 H, MCH 32.2 H, MCHC 31.2 L, RDW Std Deviation 48.3 H, RDW Coeff of Migdalia 12.7, Plt Count 84 L, MPV 11.1, Immature Gran % (Auto) 0.500, Neut % (Auto) 75.9 H, Lymph % (Auto) 10.9 L, [place] % (Auto) 7.4, Eos % (Auto) 4.8, Baso % (Auto) 0.5, Absolute Neuts (auto) 4.6, Absolute Lymphs (auto) 0.66 L, Nucleated RBC % 0 12/07/20 19:39: Sodium 139, Potassium 4.6, Chloride 102, Carbon Dioxide 33.0 H, Anion Gap 4 L, BUN 42 H, Creatinine 2.30 H, Estim Creat Clear Calc 16.28, Est GFR (MDRD) Af Amer 26 L, Est GFR (MDRD) Non-Af 22 L, BUN/Creatinine Ratio 18.3, Glucose 108 H, Calcium 8.8, Total Bilirubin 1.00, AST 42 H, ALT 41, Alkaline Phosphatase 128 H, Total Protein 6.0 L, Albumin 3.0 L, Globulin 3.0, Albumin/Globulin Ratio 1.0 09/16/21 06:36: WBC 7.7, RBC 3.41 L, Hgb 11.2 L, Hct 36.8 L, MCV 107.9 H, MCH 32.8 H, MCHC 30.4 L, RDW Std Deviation 50.1 H, RDW Coeff of Migdalia 12.5, Plt Count 75 L, MPV 11.3, Immature Gran % (Auto) 0.300, Neut % (Auto) 81.7 H, Lymph % (Auto) 7.0 L, [place] % (Auto) 7.1, Eos % (Auto) 3.5, Baso % (Auto) 0.4, Absolute Neuts (auto) 6.3, Absolute Lymphs (auto) 0.54 L, Nucleated RBC % 0, Differential Comment SCANNED, Platelet Estimate SLT 12/08/20 06:36: Sodium 138, Potassium 4.6, Chloride 103, Carbon Dioxide 29.0, Anion Gap 6, BUN 40 H, Creatinine 1.97 H, Estim Creat Clear Calc 19.01, Est GFR (MDRD) Af Amer 31 L, Est GFR (MDRD) Non-Af 26 L, BUN/Creatinine Ratio 20.3 H, Glucose 93, Calcium 8.7 Radiography Diagnostic Testing: Radiology Impression Lower Extremity CT 12/07/20 19:19 IMPRESSION: Impacted fracture of the right femoral neck without dislocation. Electronically Signed: Brown Vail DO at 20:40 EDT Tel [phone], Service support , Chest X-Ray 12/07/20 19:45 IMPRESSION: Degenerative changes, as described above. No demonstrated acute cardiopulmonary process. Electronically Signed: Brown Vail DO at 20:43 EDT Tel [phone], Service support , Physical Exam Narrative Physical exam: General: Disoriented to time and place. Not combative or agitated. HEENT: Atraumatic, PERRLA, EOMI, Normocephalic Oral: Oral mucosa dry. No Gingival or Mucosal Lesions/ Ulcerations Neck: Supple, No JVD, Negative Carotid Bruits Lungs: Air entry diminished in bilateral lung bases. No crepitation/rhonchi Cardiovascular: Regular rate, Regular Rhythm, Normal S1, Normal S2, No murmurs Abdomen: Bowel Sounds Present, Soft, Non Tender, Non-Distended : No renal angle tenderness. No suprapubic tenderness. Extremities: No edema, Capillary Refill Less than 3 Seconds Skin: No rashes, No breakdown Musculoskeletal: Right lower extremity externally rotated and abducted. Tenderness over right groin. ROM restricted. Neurological: Cranial nerves II-XII grossly intact, DTR 2+/4, mild confused Psych/Mental Status: Disoriented. Assessment & Plan Assessment/Plan (1) Closed hip fracture: QUALIFIERS: Encounter type: initial encounter Laterality: right Qualified Code(s): S72.001A - Fracture of unspecified part of neck of right femur, initial encounter for closed fracture (2) Fall: QUALIFIERS: Encounter type: initial encounter Qualified Code(s): W19.XXXA - Unspecified fall, initial encounter PLAN: 1. Impacted fracture of the right femoral neck without dislocation. Patient CT shows impacted fracture of right femoral neck without dislocation. Patient is scheduled for surgery by Dr. Mathis. Surgical risk NSQIP is in the chart and shows cardiac risk below average risk of any complication evaluated. Patient is admitted in [facility]. 2. 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 Slight improvement in creatinine and BUN. Continue IV fluid support. Continue Ringer lactate. Avoid nephrotoxins. Trend BMP. Thrombocytopenia, chronic. Review of medical department labs showed platelets of 84, Chronic. Monitor CBC. Hypertension blood pressure is in normal range. Possible recurrent UTI: I will discontinue it as patient currently does not have burning micturition patient creatinine is high. Patient on IV cefazolin. UA shows LE 500, nitrite negative, WBC 25-50 cells.pt has Puriwick catheter with dark yellow urine DVT prophylaxis SCD ordered. Patient is not a candidate of thromboprophylaxis secondary to thrombocytopenia and also being a candidate for surgery. Charges/Coding Visit Charges Inpatient E&M: 95684 Subs Hosp L2
[2020-12-08] MEDS: QUEtiapine 25 MG Tablet 50 MG PO ×2 (12:09→21:46)
--- NOTE | 2020-12-08 12:18 | CM.ED ---
JANEE Note: Referral Source: [facility] [employer] [facility] [employer] Reason for Referral: Return to SNF (Alf facility) JANEE spoke to RN caring for patient. Patient is confused. Per RN, Micky, her brother is her POA. JANEE attempted to meet with patient. Patient is not oriented and confused. JANEE called patient's brother, Micky. Micky stated he was POA ( Power of Admissions Director). Micky said that he has been waiting for MD's return call regarding patient. Micky voiced that the plan is for patient to return to [facility]. Micky was advised 2 visitors for patient. Micky said receiving inspector met with patient this morning and this sql report writer advised only 1 other HEALTHY person could visit. Micky verbalized understanding. JANEE called [facility]. Spoke with Ilsa. She said that patient's POA is her brother, Micky. JANEE advised about patient being in the ED in a PCU bed. Patient has been admitted. JANEE updated that MD will be speaking to Micky regarding surgery. Ilsa said that patient can return to the facility as long as her brother is holding her bed and I am sure he is happy with her care here. JANEE advised that brother, Micky, indicated plan to return to SNF. Ilsa said that patient has a bipap/cpap at night. Ilsa said that she will call brother about bringing the cpap/bipap in to the hospital for patient. ED statistical secretary, ED charge and PCU social worker health services, along with RN, updated regarding bipap/cpap being brought in. JANEE faxed face sheet and H and P to [facility]. Plan: Return to SNF [facility]
--- NOTE | 2020-12-08 16:55 | CONS.ORTHO ---
HPI Consult Data Date of Consult: 12/08/20 HPI Narrative HPI Narrative: JEAN PAUL LICEA, is a 80 F who presents after a fall at a alf. Patient has past history of significant dementia, chronic A. fib. Apparently patient had a fall the day prior to admission. X-rays were unremarkable at the alf, CT scan was obtained in the emergency department on 12/07/2020 which revealed a nondisplaced right femoral neck fracture. Patient was admitted under the service of the hospitalist. I was consulted for evaluation. I discussed the patient with her brother Peter, the next of kin. He states for the most part she is wheelchair-bound and has been living in a alf for the advanced dementia. 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 Chronic atrial fibrillation Chronic gastrojejunal ulcer Chronic kidney disease Chronic pain Corneal dystrophy Cutaneous abscess of abdominal wall Degenerative arthritis Dementia Dysphasia Endothelial corneal dystrophy Essential hypertension Generalized weakness Glaucoma Hallucination Heart failure History of blood clots History of COVID-19 History of pulmonary embolus (PE) Hypertension Hypothyroidism Immune thrombocytopenia Incontinence Insomnia Intertriginous dermatitis associated with moisture Intervertebral disc degeneration Iron deficiency anemia Iron deficiency anemia due to chronic blood loss Iron deficiency anemia due to dietary causes custodial current use of anticoagulant Lower back pain Necrotizing soft tissue infection Neutropenia Osteoporosis Overactive bladder Pannus, abdominal Paroxysmal atrial flutter Peripheral vascular disease Psychotic disorder with delusions Pulmonary embolism Pulmonary embolism Skin ulcer Skin ulcer of abdominal wall with fat layer exposed Sleep apnea Tear of skin of left buttock Home Medications artificial tears(hypromellose) 0.3 % eye gel 1 drp EACH EYE 4X/DAY PRN 05/24/17 [History Last Taken 12/07/20] prednisolone acetate 1 % eye drops,suspension 1 drp RIGHT EYE DAILY 05/24/17 [History Last Taken 12/07/20] docusate sodium 100 mg capsule 100 mg PO BID cap 09/24/18 [History Last Taken 12/07/20] krill oil 500 mg PO DAILY 12/16/18 [History Last Taken 12/07/20] acetaminophen 2 tab PO TID PRN PRN 01/02/19 [History Last Taken 02/24/19] benzonatate 100 mg PO TID PRN PRN 01/02/19 [History Last Taken Unknown] bisacodyl 10 mg RECTAL PRN PRN 01/02/19 [History Last Taken 12/03/20] sennosides-docusate sodium 1 ea PO DAILY PRN 01/02/19 [History Last Taken 12/07/20] sodium chloride 1 drp EACH EYE BID PRN PRN 01/02/19 [History Last Taken Unknown] magnesium hydroxide 30 ml PO DAILY PRN 02/25/19 [History Last Taken 12/02/20] promethazine 25 mg PO Q8H PRN PRN 02/25/19 [History Last Taken Unknown] levothyroxine 100 mcg PO DAILY 09/22/19 [History Last Taken 12/07/20] acetaminophen 500 mg tablet 1,000 mg PO BID tab 10/27/19 [History Last Taken 12/07/20] cholecalciferol (vitamin D3) 25 mcg (1,000 unit) tablet 25 mcg PO DAILY 10/27/19 [History Last Taken 12/07/20] cyanocobalamin (vitamin B-12) 500 mcg tablet 500 mcg PO DAILY 10/27/19 [History Last Taken 12/07/20] diltiazem HCl 180 mg capsule,24 hr,extended release 180 mg PO DAILY 10/27/19 [History Last Taken 12/07/20] oxycodone 5 mg tablet 5 mg PO BID 10/27/19 [History Last Taken 12/07/20] pantoprazole 40 mg tablet,delayed release 40 mg PO DAILY tab 10/27/19 [History Last Taken 12/07/20] solifenacin 10 mg tablet 10 mg PO DAILY 10/27/19 [History Last Taken 12/07/20] trolamine salicylate 10 % topical cream 1 applic TOPICAL BID PRN 10/27/19 [History Last Taken Unknown] buspirone 5 mg tablet 10 mg PO BID tab 12/30/19 [History Last Taken 12/07/20] furosemide 20 mg tablet 20 mg PO SUTUTHSA tab 12/30/19 [History Last Taken 12/06/20] lisinopril 10 mg tablet 2.5 mg PO DAILY tab 12/30/19 [History Last Taken 12/07/20] furosemide [Lasix] 40 mg PO MOWEFR 12/07/20 [History Last Taken 12/07/20] latanoprost 1 drp RIGHT EYE QHS 12/07/20 [History Last Taken 12/06/20] lorazepam 0.5 mg PO Q6H PRN PRN 12/07/20 [History Last Taken 12/06/20] lorazepam [Ativan] 0.5 mg PO DAILY 12/07/20 [History Last Taken Unknown] multivitamin [Daily-Katlin] 1 tab PO DAILY 12/07/20 [History Last Taken 12/07/20] oxycodone 5 mg PO Q4H PRN 12/07/20 [History Last Taken 12/07/20] polysaccharide iron complex [Ferrex 150] 150 mg PO DAILY 12/07/20 [History Last Taken 12/07/20] quetiapine [Seroquel] 25 mg PO DAILY 12/07/20 [History Last Taken 12/07/20] quetiapine [Seroquel] 50 mg PO LUNCH 12/07/20 [History Last Taken 12/07/20] quetiapine [Seroquel] 50 mg PO QHS 12/07/20 [History Last Taken 12/07/20] sertraline 50 mg PO DAILY 12/07/20 [History Last Taken 12/06/20] sucralfate [Carafate] 1 g PO BID 12/07/20 [History Last Taken Unknown] sulfamethoxazole-trimethoprim [Bactrim DS] 1 tab PO BID 12/07/20 [History Last Taken 12/07/20] Allergy/AdvReac Type Severity Reaction Status Date / Time gentamicin AdvReac shaking, Verified 09/20/20 13:48 dizziness Family History Father Heart disease Cancer prostate Mother No problems noted. Surgical History History of Achilles tendon repair History of cholecystectomy History of colonoscopy History of left heart catheterization (09/19/16) Social History Smoking Status: Never smoker alcohol intake: never substance use type: does not use what type of physical activity do you participate in: none ROS ROS Narrative Review of systems unable be obtained secondary to mental status. Vital Signs Vital Signs Vital Signs: 12/07/20 18:57 12/07/20 19:41 12/07/20 21:32 Temperature 98.4 F 98.7 F Temperature Source Temporal Temporal Pulse Rate 88 83 Respiratory Rate 18 18 Respiratory Effort Normal Non-Labored Respiratory Depth Respiratory Pattern Blood Pressure 120/78 106/66 Blood Pressure Mean 92 79 Blood Pressure Source Blood Pressure Position Blood Pressure Location Pulse Ox 94 95 Oxygen Delivery Method Nasal Cannula Venturi Mask Nasal Cannula Oxygen Flow Rate (L/min) 4 4 4 12/07/20 22:57 12/08/20 00:46 12/08/20 04:20 Temperature 97.4 F L 98.4 F Temperature Source Temporal Temporal Pulse Rate 92 90 90 Respiratory Rate 18 18 16 Respiratory Effort Normal Respiratory Depth Normal Respiratory Pattern Normal Blood Pressure 115/101 H 122/62 H Blood Pressure Mean 105 82 Blood Pressure Source Monitor Blood Pressure Position Semi-Fowlers Blood Pressure Location Left Arm Pulse Ox 96 98 94 Oxygen Delivery Method Nasal Cannula Nasal Cannula Nasal Cannula Oxygen Flow Rate (L/min) 4 4 4 12/08/20 08:52 12/08/20 08:54 12/08/20 14:26 Temperature 99.2 F H 100.4 F H Temperature Source Oral Oral Pulse Rate 94 88 Respiratory Rate 20 H 18 Respiratory Effort Normal Non-Labored Respiratory Depth Normal Respiratory Pattern Normal Blood Pressure 125/65 H 110/84 H Blood Pressure Mean 85 92 Blood Pressure Source Monitor Monitor Blood Pressure Position Semi-Fowlers Semi-Fowlers Blood Pressure Location Left Arm Right Arm Pulse Ox 95 96 Oxygen Delivery Method Nasal Cannula Nasal Cannula Nasal Cannula Oxygen Flow Rate (L/min) 4 4 4 Weight Weight: 121 lb 11.475 oz Body Mass Index (BMI) 30.7 Physical Exam Narrative General -A&Ox person only, NAD, appears stated age. Vital signs stable, afebrile. Respiratory -normal work of breathing, no intercostal retractions. CV -pulses regular, brisk capillary refill ?4 limbs. Abdomen-soft, nontender, nondistended. No guarding, rigidity, rebound tenderness. Musculoskeletal/neurologic -full range of motion nontender throughout bilateral upper extremities, left lower extremity with full sensation and strength in all dermatomes and myotomes. No midline cervical tenderness. Right lower extremity-no obvious deformity. Pain with logroll of the right lower extremity. Nontender throughout the right knee femoral shaft, tibial shaft and left foot/ankle. Brisk capillary refill. Sensation intact light touch L3-S1 dermatomes. DF, PF, EHL intact. DP, PT 2+. Pelvis is stable, nontender. Skin is intact without lacerations, abrasions. No ecchymosis noted. Lab / Micro Data Result Diagrams: 12/08/20 06:36 12/08/20 06:36 Labs: Laboratory Results - last 24 hr 12/07/20 19:39: WBC 6.1, RBC 3.48 L, Hgb 11.2 L, Hct 35.9 L, MCV 103.2 H, MCH 32.2 H, MCHC 31.2 L, RDW Std Deviation 48.3 H, RDW Coeff of Migdalia 12.7, Plt Count 84 L, MPV 11.1, Immature Gran % (Auto) 0.500, Neut % (Auto) 75.9 H, Lymph % (Auto) 10.9 L, [place] % (Auto) 7.4, Eos % (Auto) 4.8, Baso % (Auto) 0.5, Absolute Neuts (auto) 4.6, Absolute Lymphs (auto) 0.66 L, Nucleated RBC % 0 12/07/20 19:39: Sodium 139, Potassium 4.6, Chloride 102, Carbon Dioxide 33.0 H, Anion Gap 4 L, BUN 42 H, Creatinine 2.30 H, Estim Creat Clear Calc 16.28, Est GFR (MDRD) Af Amer 26 L, Est GFR (MDRD) Non-Af 22 L, BUN/Creatinine Ratio 18.3, Glucose 108 H, Calcium 8.8, Total Bilirubin 1.00, AST 42 H, ALT 41, Alkaline Phosphatase 128 H, Total Protein 6.0 L, Albumin 3.0 L, Globulin 3.0, Albumin/Globulin Ratio 1.0 12/08/20 06:36: WBC 7.7, RBC 3.41 L, Hgb 11.2 L, Hct 36.8 L, MCV 107.9 H, MCH 32.8 H, MCHC 30.4 L, RDW Std Deviation 50.1 H, RDW Coeff of Migdalia 12.5, Plt Count 75 L, MPV 11.3, Immature Gran % (Auto) 0.300, Neut % (Auto) 81.7 H, Lymph % (Auto) 7.0 L, [place] % (Auto) 7.1, Eos % (Auto) 3.5, Baso % (Auto) 0.4, Absolute Neuts (auto) 6.3, Absolute Lymphs (auto) 0.54 L, Nucleated RBC % 0, Differential Comment SCANNED, Platelet Estimate SLT 12/08/20 06:36: Sodium 138, Potassium 4.6, Chloride 103, Carbon Dioxide 29.0, Anion Gap 6, BUN 40 H, Creatinine 1.97 H, Estim Creat Clear Calc 19.01, Est GFR (MDRD) Af Amer 31 L, Est GFR (MDRD) Non-Af 26 L, BUN/Creatinine Ratio 20.3 H, Glucose 93, Calcium 8.7 12/08/20 06:36: Vitamin D 25-Hydroxy 40.0 Radiology Impression Lower Extremity CT 12/07/20 19:19 IMPRESSION: Impacted fracture of the right femoral neck without dislocation. Electronically Signed: Brown Vail DO at 20:40 EDT Tel [phone], Service support , Chest X-Ray 12/07/20 19:45 IMPRESSION: Degenerative changes, as described above. No demonstrated acute cardiopulmonary process. Electronically Signed: Brown MenifeeDO raheel at 20:43 EDT Tel [phone], Service support , Assessment & Plan Assessment/Plan (1) Closed hip fracture: QUALIFIERS: Encounter type: initial encounter Laterality: right Qualified Code(s): S72.001A - Fracture of unspecified part of neck of right femur, initial encounter for closed fracture PLAN: Patient has a nondisplaced Garden 2 femoral neck fracture. I recommended surgical intervention in the form of cannulated screw fixation. The risk, benefits, and risks of procedure reviewed with the patient's next of kin, Peter. He was to proceed with surgery. Informed consent obtained. NPO. IV Ancef on-call to the OR. Pain control per primary. Further recommendations pending surgery.
[2020-12-08] MEDS: Cefazolin 1 GM/50 ML BAG IV (17:02)
--- NOTE | 2020-12-08 17:30 | RAD_ITS ---
STUDY: X-RAY - PELVIS AND RIGHT HIP REASON FOR EXAM: Female, 80 years old. Percutaneous hip pinning. TECHNIQUE: 4 interoperative views of the pelvis and hip. COMPARISON: CT of the right hip, 12/07/2020. FINDINGS: The provided images demonstrate placement of 3C the femoral neck and head fixating the subcapital fracture noted on the earlier study. Please refer to the operative report for further details. RAD/Hip 1 view with Pelvis IMPRESSION: Pinning of the right hip fracture in the OR. Electronically Signed: Brown Vail DO at 23:13 EDT Tel [phone], Service support ,
--- NOTE | 2020-12-08 21:19 | OP.PCM_ITS ---
Problems Associated Problem List Diagnoses (1) Closed hip fracture: Report of Operation Date of Procedure: 12/08/20 Description of Surgical Findings:: Preoperative diagnosis: Right nondisplaced femoral neck fracture Postoperative diagnosis: Right nondisplaced femoral neck fracture Procedure: Percutaneous screw fixation of right nondisplaced femoral neck fracture Surgeon: Scott Mathis DO Anesthesia: General LMA Anesthesiologist: Dr. Louis Complications: None Drains: None Estimated blood loss: 100 cc Urinary output: None IV fluids: Per anesthesia record Specimens: None Surgical implants: Synthes 7.3 mm cannulated screws x3 Surgical indications: This is a 80-year-old female seen in consultation at [facility]. Patient does have advanced dementia. X-rays were obtained 12[facility] and demonstrated no acute process. She was subsequently in worsening pain and was brought to the [facility] 12/07/2020. A CT scan was obtained of her right hand demonstrate a nondisplaced right femoral neck fracture. I was asked to see the patient in consultation after she was admitted to the hospitalist. I recommended surgical fixation in the form of percutaneous screw fixation of the right femoral neck. I discussed the procedure at length with the next of kin, her brother Peter. We discussed the risks, benefits, alternatives of procedure including but not limited to bleeding, infection, need for additional surgery, malunion or nonunion, persistent pain, persistent disability, loss of life or limb, risk of anesthesia, mechanical failure of orthopedic hardware. Next of kin acknowledged understanding of these risks and elected to proceed. Description of procedure: Prior to the procedure, patient was brought to the preoperative holding area where patient was identified by name, medical record number and date of . I confirmed the side, site, operation to be performed. Informed consent was confirmed. The operative extremity was marked. She was also seen by anesthesia staff and anesthesia consent obtained.At time of the operative procedure, pt was brought to the operative suite. General anesthesia was induced on the hospital bed and LMA placed. After adequate anesthesia and securing the tube, patient was then positioned supine on a fracture table. The operative foot was well-padded and placed in a ski boot attached to the traction unit on the fracture table. The nonoperative leg was extended and secured to the lateral post of the fracture table. A well-padded perineal post was placed and the right upper extremity was brought across patient's torso and secured. We applied minimal traction through the operative extremity. We then prepped and draped the right lower extremity in normal sterile orthopedic fashion after maintained reduction was confirmed on fluoroscopy orthogonal views. We then performed a timeout with all parties in attendance in agreement with the side, site, operation be performed. 1 g Ancef was administered prior to incision by anesthesia staff. I first used fluoroscopy to renee out our planned incision with the planned trajectory of the screws. An approximately 5 inch incision was made along the lateral thigh. I then opened the IT band with a scalpel. A threaded K wire was then used to plan my screw trajectory. I placed an inverted triangle configuration just above the level of the lesser trochanter. Position was confirmed on fluoroscopy and appropriate and parallel position. Depth gauge was used to measure the length of screws. Near cortex was drilled with a cannulated drill. Screws were then placed on power and tightened on hand. I did place a washer on the inferior screw for increasing purchase. Final fluoroscopic images were obtained. Maintained reduction in placement and size of hardware appeared appropriate. Hemostasis was excellent. I then thoroughly irrigated the wound with normal saline solution. Deep tissues were closed with 0 Vicryl suture and subcutaneous tissue closed with 2-0 Vicryl suture. Skin was finally closed with vini. Sterile compression dressings were applied to the wounds. Patient was then taken out of traction entirely and removed from both traction boot and well leg burton. Patient was transferred back to his hospital bed in stable condition and extubated safely in the operative suite. Patient was then transferred to PACU in stable condition. Post Operative Plan: Weightbearing: Weightbearing as tolerated right lower extremity Antibiotics: Ancef 1 g x 3 doses postoperatively, 1 dose given preoperatively DVT Prophylaxis: Lovenox to start 12/09/2020 Arnold: None Dressing: Dry sterile dressing changes daily and as needed for saturation X-Rays: 2 weeks postop in the office Follow-up: 2 weeks in the office with myself
[2020-12-08] MEDS: Docusate Sodium 100 MG Capsule PO (21:46)
[2020-12-08] MEDS: Latanoprost 0.005% 1 Bottle 1 DRP RIGHT EYE (21:48)
[2020-12-08] MEDS: oxyCODONE 5 MG Tablet PO (22:25)
[2020-12-09] VITALS (12 sets, daily range): BP systolic 95–136; BP diastolic 46–93; PULSE 68–100; RESP 18–20; TEMP 36.2–37.7; O2SAT 85–99
[2020-12-09] MEDS: Lactated Ringers 1,000 ML 100 ML IV (01:04)
[2020-12-09] MEDS: Cefazolin 1 GM/50 ML BAG IV ×3 (01:04→16:05)
[2020-12-09] MEDS: oxyCODONE 5 MG Tablet PO ×2 (05:10→12:28)
--- NOTE | 2020-12-09 05:23 | NURSING ---
post op check completed and pt was found to have expiratory wheezes in upper anterior and through out posterior york along with crackles in the upper anterior and through out the posterior york. SP02 was found to be 84 on 3l/m via n/c and rn made aware and O2 was increased to 5l/m and SP02 increased to 92%. rn to call doctor with update on pt.
[2020-12-09] MEDS: QUEtiapine 25 MG Tablet PO (06:13)
[2020-12-09] MEDS: Levothyroxine 100 MCG Tablet PO (06:15)
[2020-12-09] MEDS: Sucralfate 1 GM Tablet PO ×2 (06:15→16:05)
--- NOTE | 2020-12-09 07:42 | PN.ORTHO_ITS ---
Subjective Subjective Patient seen and examined at bedside this morning. She appears comfortable. Unable to answer questions appropriately but does follow commands. Resting comfortably in bed upon my entering. Objective Data Objective Data Vital Signs: Vital Signs Temp Pulse Resp BP Pulse Ox 97.6 F L 68 20 H 130/83 H 85 12/09/20 04:50 12/09/20 03:00 12/09/20 04:50 12/09/20 04:50 12/09/20 04:50 Oxygen Flow Rate (L/min) 3 Oxygen Delivery Method Nasal Cannula Weight: 121 lb 11.475 oz Body Mass Index (BMI) 30.7 Intake & Output: Intake and Output for Last 24 Hours 12/07/20 12/08/20 12/09/20 23:59 23:59 23:59 Intake Total 210 / 210 996.67 / 996.67 Output Total 700 / 700 0 / 0 Balance -490 / -490 996.67 / 996.67 Lab / Micro Data Result Diagrams: 12/08/20 06:36 12/08/20 06:36 Labs: Laboratory Results - last 24 hr 12/08/20 06:36: Sodium 138, Potassium 4.6, Chloride 103, Carbon Dioxide 29.0, Anion Gap 6, BUN 40 H, Creatinine 1.97 H, Estim Creat Clear Calc 19.01, Est GFR (MDRD) Af Amer 31 L, Est GFR (MDRD) Non-Af 26 L, BUN/Creatinine Ratio 20.3 H, Glucose 93, Calcium 8.7 12/08/20 06:36: Vitamin D 25-Hydroxy 40.0 Radiography Diagnostic Testing: Radiology Impression Hip/Pelvis X-Ray 12/08/20 17:30 IMPRESSION: Pinning of the right hip fracture in the OR. Electronically Signed: Brown Vail DO at 23:13 EDT Tel [phone], Service support , Physical Exam Narrative General - A&Ox person, NAD. VSS/AF Right lower extremity -incisional dressing shows some sanguinous spotting, otherwise dry and intact. DP, PT 2+. BCR. DF, PF, EHL 5/5. No calf TTP or s welling. Assessment & Plan Assessment/Plan (1) Closed hip fracture: QUALIFIERS: Encounter type: initial encounter Laterality: right Qualified Code(s): S72.001A - Fracture of unspecified part of neck of right femur, initial encounter for closed fracture PLAN: POD#1 s/p right femoral neck percutaneous screw fixation - Pain control - Medicine following for medical management - PT/OT -okay to weight-bear as tolerated for transfers -24 hours IV Ancef postop - DVT PPX -per primary, would recommend daily Lovenox or equivalent - Pt stable from ortho perspective, will sign off. Plan to f/u in my office in 2 weeks for xrays and staple removal. Dry sterile dressing changes daily. Ok to shower POD#4. Thank you for allowing me to care for this patient. Please do not hesitate to call if any questions or concerns arise.
[2020-12-09] MEDS: Multivitamins,Therapeutic Tablet 1 TABLET PO (09:34)
[2020-12-09] MEDS: Cholecalciferol (VIT D3) 25 MCG TABLET (1,000 UNITS) PO (11:15)
[2020-12-09] MEDS: Iron Polysaccharide Complex 150 MG CAPSULE PO (11:15)
[2020-12-09] MEDS: Pantoprazole Sodium 40 MG Tablet PO (11:15)
[2020-12-09] MEDS: Cyanocobalamin 500 MCG Tablet PO (11:15)
[2020-12-09] MEDS: Docusate Sodium 100 MG Capsule PO ×2 (11:15→22:07)
[2020-12-09] MEDS: prednisoLONE eye drops (5 mL) 1 DROP OPTH.BTL 1 DRP OPHTHALMIC (11:16)
[2020-12-09] MEDS: Sertraline 50 MG Tablet PO (11:16)
[2020-12-09] MEDS: Acetaminophen 500 MG Tablet 1000 MG PO ×2 (11:16→22:07)
[2020-12-09] MEDS: busPIRone 5 MG Tablet 10 MG PO ×2 (11:16→22:07)
[2020-12-09] MEDS: dilTIAZem CD 180 MG Capsule PO (11:16)
[2020-12-09] MEDS: Tolterodine Tartrate 4 MG CAP.SA PO (11:16)
[2020-12-09] MEDS: QUEtiapine 25 MG Tablet 50 MG PO ×2 (11:17→22:07)
[2020-12-09] MEDS: LORazepam 0.5 MG Tablet PO (11:23)
--- NOTE | 2020-12-09 12:59 | CASEMGMT ---
JANEE spoke w/physician, pt is not ready for [facility] to the [facility]. Pt is on 5 L of O2 at present. JANEE called [facility], pt is normally on O2 as needed, and on 2L O2 at night through [facility]. Pt is there [facility] but will return skilled. Green sheet on chart in anticipation of weekend discharge, Jacquelyn at [facility] states pt can return on the weekend. Updates faxed. 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 NAHOMI Maguire
--- NOTE | 2020-12-09 13:00 | CHAPLAIN ---
Type of Pastoral Visit _x__ Initial Visit ___ Follow-up Visit ___ On-call Visit ___ General Patient Visit ___ Spiritual Assessment ___ Family Conference ___ Bereavement ___ Rapid Response ___ Code Blue ___ Other (describe below) Pastoral Care Referral From ___ Patient _x__ Family ___ Nurse ___ Physician ___ High Speed Warper Tender ___ Lime Hide Inspector ___ Other (describe below) Sacrament/Intervention _x__ Active listening ___ Anointing ___ Advent ___ Bereavement ___ Communion ___ Arcelia exploration ___ ___ Life review _x__ Prayer ___ Reconciliation ___ Sacrament of Sick _x__ Supportive presence ___ Wedding ___ Other (describe below) Pastoral Comments as reported by KAITARA TARAKA this patient is confused and currently feels like she is falling; KAITARA TARAKA gave reassurance and provided safety assurance; this manager quality systems sat at bedside and held pt's hand the entire visit; pt grasps the bed rails the entire visit and at times shows signs of fear at assumed belief she is falling; calm talk, attempts at distraction are successful for very short periods; repeating words to patient engages her in some conversation but without meaning; singing a hymn to patient and she began to sing along for a few seconds; asked her middle name the pt was able to tell it correctly; otherwise other speech is garbled and not appropriate for questions or comments; prayer and presence
--- NOTE | 2020-12-09 18:23 | PCM.PN.HOSP ---
Subjective Subjective Patient was seen and examined today, she remains on oxygen at 4 L/min via nasal cannula, she does not appear to be short of breath. Patient remains confused. Objective Data Objective Data Vital Signs: Vital Signs Temp Pulse Resp BP Pulse Ox 97.1 F L 83 18 95/69 96 12/09/20 16:00 12/09/20 16:00 12/09/20 16:00 12/09/20 16:00 12/09/20 16:00 Oxygen Flow Rate (L/min) 4 Oxygen Delivery Method Nasal Cannula Weight: 55.21 kg Body Mass Index (BMI) 30.7 Intake & Output: Intake and Output for Last 24 Hours 12/07/20 12/08/20 12/09/20 23:59 23:59 23:59 Intake Total 210 / 210 1626.67 / 1626.67 Output Total 700 / 700 200 / 200 Balance -490 / -490 1426.67 / 1426.67 Lab / Micro Data Result Diagrams: 12/08/20 06:36 12/08/20 06:36 Radiography Diagnostic Testing: Radiology Impression Hip/Pelvis X-Ray 12/08/20 17:30 IMPRESSION: Pinning of the right hip fracture in the OR. Electronically Signed: Brown Vail at 23:13 EDT Tel [phone], Service support , Physical Exam Const alert and no apparent distress Orientation / Consciousness: confused and disoriented HEENT head/scalp atraumatic and moist oral mucous membranes Head and Scalp: normocephalic Eyes PERRL, EOMs intact bilaterally and conjunctivae normal Neck no lymphadenopathy, supple and no JVD Cardio regular rate and regular rhythm GI normal to inspection, nondistended, normoactive bowel sounds, soft to palpation, non-tender and non-distended Skin no rashes or lesions noted, skin turgor normal and no jaundice Neuro CN's II-XII intact bilaterally Sensorium / Orientation: awake Psych Psych Narrative: Patient is alert but confused Assessment & Plan Assessment/Plan (1) Closed hip fracture: QUALIFIERS: Encounter type: initial encounter Laterality: right Qualified Code(s): S72.001A - Fracture of unspecified part of neck of right femur, initial encounter for closed fracture PLAN: 1. Right femoral neck fracture secondary to osteoporosis-postop day #1 percutaneous screw fixation of right nondisplaced femoral neck fracture, continue PT and OT, patient will return to a skilled care facility when she is stable. #2 hypoxic respiratory failure-etiology unclear, could possibly be secondary to atelectasis, I will order chest x-ray on the patient #3 dementia #4 chronic idiopathic thrombocytopenia #5 mild pulmonary hypertension #6 essential hypertension Charges/Coding Visit Charges Inpatient E&M: 75268 Subs Hosp L2
--- NOTE | 2020-12-09 18:46 | RAD_ITS ---
STUDY: X-RAY CHEST REASON FOR EXAM: Female, 80 years old. hypoxia TECHNIQUE: Single AP portable view of the chest. COMPARISON: 12/07/2020 FINDINGS: Poor inspiration with some bibasilar atelectasis. There is no demonstrated pleural abnormality. Normal size heart. Normal mediastinum and radames. Normal visualized pulmonary arteries. Normal visualized aortic arch and descending thoracic aorta. Normal visualized thoracic spine. Normal visualized ribs, clavicles, and shoulders. There is no demonstrated abnormality of the visualized soft tissue structures of the upper abdomen. RAD/Chest 1 View (Portable) IMPRESSION: No change from 12/07/2020. Electronically Signed: Marc Hendricks MD at 6:48 EDT Tel , Service support ,
[2020-12-09] MEDS: Cephalexin 500 MG Capsule PO (22:07)
[2020-12-09] MEDS: Latanoprost 0.005% 1 Bottle 1 DRP RIGHT EYE (22:07)
[2020-12-09] MEDS: 0.9% Saline Lock 10 ML Syringe IV (22:26)
[2020-12-10] VITALS (7 sets, daily range): BP systolic 118–121; BP diastolic 55–75; PULSE 67–91; RESP 18–20; TEMP 36.6–37.1; O2SAT 74–95
--- NOTE | 2020-12-10 04:08 | PCS.PANDOC ---
PANDEMIC DOCUMENTATION INITIATED: Date: 11/07/2020 Time: 190
[2020-12-10] MEDS: oxyCODONE 5 MG Tablet PO (05:07)
[2020-12-10] MEDS: QUEtiapine 25 MG Tablet PO (05:08)
[2020-12-10] MEDS: Levothyroxine 100 MCG Tablet PO (05:08)
[2020-12-10] MEDS: Sucralfate 1 GM Tablet PO ×2 (07:53→17:07)
[2020-12-10] MEDS: Multivitamins,Therapeutic Tablet 1 TABLET PO (07:54)
[2020-12-10] MEDS: Sertraline 50 MG Tablet PO (10:45)
[2020-12-10] MEDS: Tolterodine Tartrate 4 MG CAP.SA PO (10:45)
[2020-12-10] MEDS: busPIRone 5 MG Tablet 10 MG PO (10:45)
[2020-12-10] MEDS: Cephalexin 500 MG Capsule PO (10:45)
[2020-12-10] MEDS: Cholecalciferol (VIT D3) 25 MCG TABLET (1,000 UNITS) PO (10:45)
[2020-12-10] MEDS: Pantoprazole Sodium 40 MG Tablet PO (10:45)
[2020-12-10] MEDS: Iron Polysaccharide Complex 150 MG CAPSULE PO (10:45)
[2020-12-10] MEDS: Docusate Sodium 100 MG Capsule PO (10:45)
[2020-12-10] MEDS: dilTIAZem CD 180 MG Capsule PO (10:45)
[2020-12-10] MEDS: Cyanocobalamin 500 MCG Tablet PO (10:45)
[2020-12-10] MEDS: Acetaminophen 500 MG Tablet 1000 MG PO (10:46)
[2020-12-10] MEDS: prednisoLONE eye drops (5 mL) 1 DROP OPTH.BTL 1 DRP OPHTHALMIC (10:46)
[2020-12-10] MEDS: LORazepam 0.5 MG Tablet PO (10:50)
--- NOTE | 2020-12-10 12:31 | VDLE_ITS ---
Reason For Study: SOB RIGHT LEFT GSV is normal. GSV is normal. CFV is compressible, spontaneous, phasic, CFV is compressible, spontaneous, phasic, competent and demonstrates normal competent, and demonstrates normal augmentation. augmentation. FV is compressible, spontaneous, phasic, FV is compressible, spontaneous, phasic, competent and demonstrates normal competent and demonstrates normal augmentation. augmentation. POP V is compressible, spontaneous, phasic, POP V is compressible, spontaneous, phasic, competent and demonstrates normal competent and demonstrates normal augmentation. augmentation. T/P Trunk is compressible. T/P Trunk is compressible. PTV is compressible. PTV is compressible. RT PerV is compressible. LT PerV is compressible. Procedure This is a venous duplex using B-mode, color flow and spectral Doppler. Exam performed portable in patient room. The exam was of fair technical quality due to pt inability to position and grabbing the probe. A preliminary report was called and/or faxed to discharge coordinator. VL/Venous Duplex US - Bacilio Extrem Interpretation Summary No evidence for acute deep venous thrombosis bilateral lower extremities with p atent and compressible bilateral great saphenous veins. Examination noted to be of fair t echnical quality Ordering Physician: Esequiel Funk Performed By: Micky Ellis RVT
[2020-12-10] MEDS: QUEtiapine 25 MG Tablet 50 MG PO (12:52)
--- NOTE | 2020-12-10 14:55 | PCM.TXEXTCAR ---
Diet 12/09/20 09:46 Diet: Regular Is pt able to select menu?: No Routine Orders/Code Status O2 Liters per Minute: 4 O2 Frequency: Continuous Keep PO Greater than or Equal to (%): 90 Code Status: DNRCC-A (with intubation) Wound(s) right elbow: Wound Type: Skin Tear right hip: Wound Type: Surgical Incision Therapies Weight Bearing: Weight bearing as tolerated Physical Therapy: Eval and Treat Occupational Therapy: Eval and Treat Problem/Diagnosis (1) Closed hip fracture: Status: Acute Comment: Right femoral neck fracture, Status post right femoral neck fracture, Status post right femoral neck percutaneous screw fixation 12/08/2020 (2) Chronic ITP (idiopathic thrombocytopenia): Status: Chronic (3) Essential hypertension: Status: Chronic (4) Dementia: Status: Acute (5) Acute and chronic respiratory failure with hypoxia: Status: Acute Comment: Possibly secondary to atelectasis, no evidence for pneumonia (6) Chronic kidney disease, stage 3b: Status: Acute (7) Osteoporosis: Status: Chronic (8) Chronic anxiety: Status: Chronic (9) Acute cystitis with positive culture: Status: Acute Comment: E. coli Allergies/Procedures Done in Hospital Allergies gentamicin Adverse Reaction (Verified 09/20/20 13:48) shaking, dizziness Procedures: - (Insertion of a right femoral neck percutaneous screw 12/08/2020) Type of Care/Length of Stay Estimated LOS: Convalescent Care Less Than 30 days Type of Care Needed: Skilled Rehab Potential: Fair Prognosis: Fair Additional Orders/Day of Discharge H&P will serve as current which was dated: 12/07/20 Day of Discharge: 12/10/20 Dietary and Speech Recommendations Dietitian Recommendations/Changes: Recommend regular diet, 120mL ensure enlive 4x/day Discharge Plan Admission Admit Date/Time: 12/07/20 21:10 Primary Reason for Your Visit: Closed right femoral neck hip fracture Attending Provider: Esequiel Funk Primary Care Provider: Chung Marcos Consulting Providers: Scott Mathis Instructions Additional Instructions / Restrictions: Okay to weight-bear as tolerated for transfers, place and maintain SCDs for DVT prophylaxis, follow-up with Dr. Scott Mathis in his office in 2 weeks-call for appointment, dry sterile dressing changes daily, okay to shower postop day #4 (12/12/2020) Discharge Orders/Prescriptions Prescriptions: New lorazepam 0.5 mg Tablet 0.5 mg PO Q6H PRN PRN (Reason: Anxiety) 7 Days Qty: 10 RF: 0 lorazepam 0.5 mg Tablet 0.5 mg PO DAILY 7 Days Qty: 7 RF: 0 oxycodone 5 mg Tablet 5 - 10 mg PO Q4H PRN PRN (Reason: PAIN -01/01) 7 Days Qty: 10 RF: 0 cephalexin 500 mg Capsule 500 mg PO Q12 5 Days Qty: 10 RF: 0 Continued prednisolone acetate 1 % drops,suspension 1 drp RIGHT EYE DAILY RF: 0 artificial tears(hypromellose) [Systane Gel] 0.3 % gel 1 drp EACH EYE 4X/DAY PRN (Reason: Dry Eyes) RF: 0 docusate sodium 100 mg capsule 100 mg PO BID RF: 0 cholecalciferol (vitamin D3) 25 mcg (1,000 unit) tablet 25 mcg PO DAILY RF: 0 diltiazem HCl 180 mg capsule,extended release 24 hr 180 mg PO DAILY RF: 0 acetaminophen 500 mg tablet 1,000 mg PO BID RF: 0 solifenacin 10 mg tablet 10 mg PO DAILY RF: 0 cyanocobalamin (vitamin B-12) [Vitamin B-12] 500 mcg tablet 500 mcg PO DAILY RF: 0 buspirone 5 mg tablet 10 mg PO BID RF: 0 levothyroxine 100 MCG tablet 100 mcg PO DAILY RF: 0 sennosides-docusate sodium 1 EACH tablet 1 ea PO DAILY PRN (Reason: Constipation) RF: 0 acetaminophen 500 MG tablet 2 tab PO TID PRN PRN (Reason: Pain Or Fever) RF: 0 magnesium hydroxide 30 ML suspension 30 ml PO DAILY PRN (Reason: Constipation) RF: 0 pantoprazole 40 mg tablet,delayed release (DR/EC) 40 mg PO DAILY RF: 0 multivitamin [Daily-Katlin] Tablet 1 tab PO DAILY RF: 0 quetiapine [Seroquel] 25 mg Tablet 25 mg PO DAILY RF: 0 latanoprost 0.005 % Drops 1 drp RIGHT EYE QHS RF: 0 sucralfate [Carafate] 1 gram Tablet 1 g PO BID RF: 0 polysaccharide iron complex [Ferrex 150] 150 mg iron Capsule 150 mg PO DAILY RF: 0 sertraline 50 mg Tablet 50 mg PO DAILY RF: 0 quetiapine [Seroquel] 50 mg Tablet 50 mg PO LUNCH RF: 0 quetiapine [Seroquel] 50 mg Tablet 50 mg PO QHS RF: 0 Changed furosemide 20 mg tablet 20 mg PO DAILY Qty: 0 RF: 0 Discontinued trolamine salicylate 10 % cream 1 applic TOPICAL BID PRN (Reason: EYE DROPS) RF: 0 lisinopril 10 mg tablet 2.5 mg PO DAILY RF: 0 krill oil 500 MG capsule 500 mg PO DAILY RF: 0 benzonatate 100 MG capsule 100 mg PO TID PRN PRN (Reason: Cough) RF: 0 bisacodyl 10 MG suppository 10 mg RECTAL PRN PRN (Reason: Constipation) RF: 0 sodium chloride 1 DROP drops 1 drp EACH EYE BID PRN PRN (Reason: endothelial dystrophy) RF: 0 promethazine 25 MG tablet 25 mg PO Q8H PRN PRN (Reason: Nausea/Vomiting) RF: 0 furosemide [Lasix] 40 mg Tablet 40 mg PO MOWEFR RF: 0 sulfamethoxazole-trimethoprim [Bactrim DS] 800-160 mg Tablet 1 tab PO BID RF: 0 lorazepam 0.5 mg Tablet 0.5 mg PO Q6H PRN PRN (Reason: .) RF: 0 oxycodone 5 mg Capsule 5 mg PO Q4H PRN (Reason: Pain) RF: 0 lorazepam [Ativan] 1 mg Tablet 0.5 mg PO DAILY RF: 0 No Action oxycodone 5 mg tablet 5 mg PO BID RF: 0 Referrals / Follow Up: Chung Marcos DO [Primary Care Provider] - Scott Mathis DO [STAFF PHYSICIAN] - See Referral Note (In 2 weeks) Disposition Disposition (needs filled in before D/C Order can be placed[facility]
--- NOTE | 2020-12-10 16:37 | NURSING ---
REPORT CALLED TO WILL NURSE AT [facility]
--- NOTE | 2020-12-10 16:47 | NURSING ---
[facility] CALLED FOR TRANSPORT, [facility]AME [facility] 1800
--- NOTE | 2020-12-10 17:07 | NURSING ---
Lucien ivey updated on dc
--- NOTE | 2020-12-10 19:24 | PCM.DC.SUM ---
Providers Date of Admission: 12/07/20 Date of Discharge: 12/10/20 Primary Care Physician: Dr. Chung Marcos, DO Consultations 12/07/20 22:52 Consult: Orthopedics Routine Consulting Provider: Scott Mathis Reason for Consult: Right femoral neck fracture EMERGENT Consult: No MD Notified: Yes Date Notified: 12/07/20 Time Notified: 21:18 Method of Notification: Provider Initiated Reason For Visit: IMPACTED FRACTURE OF THE RIGHT FEMORAL NECK Diagnosis Discharge Diagnosis (1) Closed hip fracture: Status: Acute Code(s): S72.009A - Fracture of unspecified part of neck of unspecified femur, initial encounter for closed fracture Qualifiers: Encounter type: initial encounter Laterality: right Qualified Code(s): S72.001A - Fracture of unspecified part of neck of right femur, initial encounter for closed fracture (2) Chronic ITP (idiopathic thrombocytopenia): Status: Chronic Code(s): D69.3 - Immune thrombocytopenic purpura (3) Essential hypertension: Status: Chronic Code(s): I10 - Essential (primary) hypertension (4) Dementia: Status: Acute Code(s): F03.90 - Unspecified dementia without behavioral disturbance (5) Acute and chronic respiratory failure with hypoxia: Status: Acute Code(s): J96.21 - Acute and chronic respiratory failure with hypoxia (6) Chronic kidney disease, stage 3b: Status: Acute Code(s): N18.32 - Chronic kidney disease, stage 3b (7) Osteoporosis: Status: Chronic Code(s): M81.0 - Age-related osteoporosis without current pathological fracture (8) Chronic anxiety: Status: Chronic Code(s): F41.9 - Anxiety disorder, unspecified (9) Acute cystitis with positive culture: Status: Acute Code(s): N30.00 - Acute cystitis without hematuria Plan: Discharge diagnosis: #1 right femoral neck fracture secondary to osteoporosis #2 hypoxic respiratory failure-etiology unclear, possibly secondary to atelectasis #3 dementia #4 chronic idiopathic thrombocytopenia #5 mild pulmonary hypertension #6 essential hypertension. Medications at Discharge Home Medications artificial tears(hypromellose) 0.3 % eye gel 1 drp EACH EYE 4X/DAY PRN 05/24/17 prednisolone acetate 1 % eye drops,suspension 1 drp RIGHT EYE DAILY 05/24/17 docusate sodium 100 mg capsule 100 mg PO BID cap 09/24/18 acetaminophen 2 tab PO TID PRN PRN 01/02/19 sennosides-docusate sodium 1 ea PO DAILY PRN 01/02/19 magnesium hydroxide 30 ml PO DAILY PRN 02/25/19 levothyroxine 100 mcg PO DAILY 09/22/19 acetaminophen 500 mg tablet 1,000 mg PO BID tab 10/27/19 cholecalciferol (vitamin D3) 25 mcg (1,000 unit) tablet 25 mcg PO DAILY 10/27/19 cyanocobalamin (vitamin B-12) 500 mcg tablet 500 mcg PO DAILY 10/27/19 diltiazem HCl 180 mg capsule,24 hr,extended release 180 mg PO DAILY 10/27/19 oxycodone 5 mg tablet 5 mg PO BID 10/27/19 pantoprazole 40 mg tablet,delayed release 40 mg PO DAILY tab 10/27/19 solifenacin 10 mg tablet 10 mg PO DAILY 10/27/19 buspirone 5 mg tablet 10 mg PO BID tab 12/30/19 latanoprost 1 drp RIGHT EYE QHS 12/07/20 multivitamin [Daily-Katlin] 1 tab PO DAILY 12/07/20 polysaccharide iron complex [Ferrex 150] 150 mg PO DAILY 12/07/20 quetiapine [Seroquel] 25 mg PO DAILY 12/07/20 quetiapine [Seroquel] 50 mg PO LUNCH 12/07/20 quetiapine [Seroquel] 50 mg PO QHS 12/07/20 sertraline 50 mg PO DAILY 12/07/20 sucralfate [Carafate] 1 g PO BID 12/07/20 cephalexin 500 mg PO Q12 5 Days #10 cap 12/10/20 furosemide 20 mg PO DAILY #0 tab 12/10/20 lorazepam 0.5 mg PO DAILY 7 Days #7 tab 12/10/20 lorazepam 0.5 mg PO Q6H PRN PRN 7 Days #10 tab 12/10/20 oxycodone 5 - 10 mg PO Q4H PRN PRN 7 Days #10 tab 12/10/20 Hospital Course Operations - (Percutaneous screw fixation of right nondisplaced femoral neck fracture-12/08/2020) Procedures 2-D Echocardiogram and - (Venous duplex scan of the legs) Summary of Care Provided Minutes Spent on Discharge: 34 Hospital Course: This 80-year-old white female was seen in the emergency room at [facility] after sustaining a fall at home, work-up in the emergency room showed her to have a right femoral neck fracture. Patient was admitted to [place] [id number], she was seen in consultation by orthopedic surgery and underwent an echocardiogram which showed preserved ejection fraction, patient underwent surgery on 12/08/2020 with insertion of a percutaneous screw to repair her right nondisplaced femoral neck fracture. Patient was seen postop by PT and OT, she remained hypoxic during her hospitalization, the etiology of the hypoxemia was not known but felt to be secondary to atelectasis. Venous duplex scan of the legs revealed no evidence of VTE. Patient was thrombocytopenic so she could not be placed on prophylactic Lovenox or Eliquis or Xarelto. On 12/10/2020, patient was seen and examined: alert and no apparent distress Orientation / Consciousness: confused and disoriented HEENT head/scalp atraumatic and moist oral mucous membranes Head and Scalp: normocephalic Eyes PERRL, EOMs intact bilaterally and conjunctivae normal Neck no lymphadenopathy, supple and no JVD Cardio regular rate and regular rhythm GI normal to inspection, nondistended, normoactive bowel sounds, soft to palpation, non-tender and non-distended Skin no rashes or lesions noted, skin turgor normal and no jaundice Neuro CN's II-XII intact bilaterally Sensorium / Orientation: awake Psych Psych Narrative: Patient is alert but confused Patient was felt stable for discharge to a [facility] facility for further rehab services on 12/10/2020. Weight / BMI Weight Weight: 55.21 kg Body Mass Index (BMI) 30.7 ABG / Lab / Microbiology Data Result Diagrams: 12/08/20 06:36 12/08/20 06:36 Microbiology: Microbiology 12/10/20 14:13 Nasal Secretion SARS-CoV-2 Antigen (Rapid) - Final Radiography Diagnostic Testing: Radiology Impression Chest X-Ray 12/09/20 18:46 IMPRESSION: No change from 12/07/2020. Electronically Signed: Marc Hendricks MD at 6:48 EDT Tel , Service support , Meaningful Use Info Meaningful Use Diagnoses (Choose all that apply): None applicable Discharge Plan Admission Admit Date/Time: 12/07/20 21:10 Primary Reason for Your Visit: Closed right femoral neck hip fracture Attending Provider: Esequiel Funk Primary Care Provider: Chung Marcos Consulting Providers: Scott Mathis Instructions Additional Instructions / Restrictions: Okay to weight-bear as tolerated for transfers, place and maintain SCDs for DVT prophylaxis, follow-up with Dr. Scott Mathis in his office in 2 weeks-call for appointment, dry sterile dressing changes daily, okay to shower postop day #4 (12/12/2020) Discharge Orders/Prescriptions Prescriptions: New lorazepam 0.5 mg Tablet 0.5 mg PO Q6H PRN PRN (Reason: Anxiety) 7 Days Qty: 10 RF: 0 lorazepam 0.5 mg Tablet 0.5 mg PO DAILY 7 Days Qty: 7 RF: 0 oxycodone 5 mg Tablet 5 - 10 mg PO Q4H PRN PRN (Reason: PAIN 6-01/01) 7 Days Qty: 10 RF: 0 cephalexin 500 mg Capsule 500 mg PO Q12 5 Days Qty: 10 RF: 0 Continued prednisolone acetate 1 % drops,suspension 1 drp RIGHT EYE DAILY RF: 0 artificial tears(hypromellose) [Systane Gel] 0.3 % gel 1 drp EACH EYE 4X/DAY PRN (Reason: Dry Eyes) RF: 0 docusate sodium 100 mg capsule 100 mg PO BID RF: 0 cholecalciferol (vitamin D3) 25 mcg (1,000 unit) tablet 25 mcg PO DAILY RF: 0 diltiazem HCl 180 mg capsule,extended release 24 hr 180 mg PO DAILY RF: 0 acetaminophen 500 mg tablet 1,000 mg PO BID RF: 0 solifenacin 10 mg tablet 10 mg PO DAILY RF: 0 cyanocobalamin (vitamin B-12) [Vitamin B-12] 500 mcg tablet 500 mcg PO DAILY RF: 0 buspirone 5 mg tablet 10 mg PO BID RF: 0 levothyroxine 100 MCG tablet 100 mcg PO DAILY RF: 0 sennosides-docusate sodium 1 EACH tablet 1 ea PO DAILY PRN (Reason: Constipation) RF: 0 acetaminophen 500 MG tablet 2 tab PO TID PRN PRN (Reason: Pain Or Fever) RF: 0 magnesium hydroxide 30 ML suspension 30 ml PO DAILY PRN (Reason: Constipation) RF: 0 pantoprazole 40 mg tablet,delayed release (DR/EC) 40 mg PO DAILY RF: 0 multivitamin [Daily-Katlin] Tablet 1 tab PO DAILY RF: 0 quetiapine [Seroquel] 25 mg Tablet 25 mg PO DAILY RF: 0 latanoprost 0.005 % Drops 1 drp RIGHT EYE QHS RF: 0 sucralfate [Carafate] 1 gram Tablet 1 g PO BID RF: 0 polysaccharide iron complex [Ferrex 150] 150 mg iron Capsule 150 mg PO DAILY RF: 0 sertraline 50 mg Tablet 50 mg PO DAILY RF: 0 quetiapine [Seroquel] 50 mg Tablet 50 mg PO LUNCH RF: 0 quetiapine [Seroquel] 50 mg Tablet 50 mg PO QHS RF: 0 Changed furosemide 20 mg tablet 20 mg PO DAILY Qty: 0 RF: 0 Discontinued trolamine salicylate 10 % cream 1 applic TOPICAL BID PRN (Reason: EYE DROPS) RF: 0 lisinopril 10 mg tablet 2.5 mg PO DAILY RF: 0 krill oil 500 MG capsule 500 mg PO DAILY RF: 0 benzonatate 100 MG capsule 100 mg PO TID PRN PRN (Reason: Cough) RF: 0 bisacodyl 10 MG suppository 10 mg RECTAL PRN PRN (Reason: Constipation) RF: 0 sodium chloride 1 DROP drops 1 drp EACH EYE BID PRN PRN (Reason: endothelial dystrophy) RF: 0 promethazine 25 MG tablet 25 mg PO Q8H PRN PRN (Reason: Nausea/Vomiting) RF: 0 furosemide [Lasix] 40 mg Tablet 40 mg PO MOWEFR RF: 0 sulfamethoxazole-trimethoprim [Bactrim DS] 800-160 mg Tablet 1 tab PO BID RF: 0 lorazepam 0.5 mg Tablet 0.5 mg PO Q6H PRN PRN (Reason: .) RF: 0 oxycodone 5 mg Capsule 5 mg PO Q4H PRN (Reason: Pain) RF: 0 lorazepam [Ativan] 1 mg Tablet 0.5 mg PO DAILY RF: 0 No Action oxycodone 5 mg tablet 5 mg PO BID RF: 0 Referrals / Follow Up: Chung Marcos DO [Primary Care Provider] - Scott Mathis DO [STAFF PHYSICIAN] - See Referral Note (In 2 weeks) Disposition Disposition (needs filled in before D/C Order can be placed): [facility] Charges/Coding Visit Charges Inpatient E&M: 50502 Disch Hosp
== END 2020-12-10 18:20 | disposition skilled nursing facility (03) | DRG 480 ==
LOC: ED 21:11 → PCU 12-08 07:07 → MS2 12-09 07:33 → PCU 12-09 10:49 → MS2 12-09 10:49
PROVIDERS: Student in an Organized Health Care Education/Training Program; Admitting Provider Hospitalist; Emergency Provider Emergency Medicine; PCP Family Medicine; Visit Provider Internal Medicine
PROC: 0QS634Z Reposition Right Upper Femur with Internal Fixation Device, Percutaneous Approach (ICD-10-PCS; principal; 2020-12-08 16:30)
DX: M80.051A Age-related osteoporosis with current pathological fracture, right femur, initial encounter for fracture (principal); J96.21 Acute and chronic respiratory failure with hypoxia; D69.3 Immune thrombocytopenic purpura; N17.9 Acute kidney failure, unspecified; I48.20 Chronic atrial fibrillation, unspecified; N30.00 Acute cystitis without hematuria; J98.11 Atelectasis; E03.9 Hypothyroidism, unspecified; I44.0 Atrioventricular block, first degree; I44.7 Left bundle-branch block, unspecified; F02.80 Dementia in other diseases classified elsewhere, unspecified severity, without behavioral disturbance, psychotic disturbance, mood disturbance, and anxiety; I12.9 Hypertensive chronic kidney disease with stage 1 through stage 4 chronic kidney disease, or unspecified chronic kidney disease; N18.32 Chronic kidney disease, stage 3b; F41.9 Anxiety disorder, unspecified; G30.9 Alzheimer's disease, unspecified; G47.30 Sleep apnea, unspecified; G89.29 Other chronic pain; H40.9 Unspecified glaucoma; G47.00 Insomnia, unspecified; I73.9 Peripheral vascular disease, unspecified; Z66 Do not resuscitate; Z99.3 Dependence on wheelchair; Z86.711 Personal history of pulmonary embolism; Z87.440 Personal history of urinary (tract) infections; Z79.01 Long term (current) use of anticoagulants; Z86.16 Personal history of COVID-19; Z79.899 Other long term (current) drug therapy; Z86.718 Personal history of other venous thrombosis and embolism
CPT/HCPCS: 36415; 71045; 73501; 73700; 76000; 80048; 80053; 82306; 85025; 87426; 93005; 93970; 97110; 97162; 97166; 97530; 97535; 99285; C1776; J7120; A4216

== ENCOUNTER → 2020-12-29 05:00 | Outpatient (REF) | payer MEDICARE, OTHER, SELFPAY ==
[2020-12-29 08:58] LABS: Anion Gap 6 (5-15); BUN 44 mg/dL (7-18); BUN/Creat Ratio 37.6 RATIO (10-20); Calcium,Total 9.1 mg/dL (8.5-10.1); Chloride 100 mmol/L (98-107); Creatinine, Serum 1.17 mg/dL (0.55-1.02); EST Glomerular Filtration Rate 47 mL/min (>60); Est Glom Filt Rate - Afr Amer 57 mL/min (>60); Glucose 90 mg/dL (74-106); Potassium 4.2 mmol/L (3.5-5.1); Sodium Level 140 mmol/L (136-145)
== END ==
LOC: OLS.ACH 05:00
PROVIDERS: PCP Family Medicine; Visit Provider Family Medicine
DX: I13.0 Hypertensive heart and chronic kidney disease with heart failure and stage 1 through stage 4 chronic kidney disease, or unspecified chronic kidney disease (principal); N18.9 Chronic kidney disease, unspecified; I50.9 Heart failure, unspecified
CPT/HCPCS: 36415; 80048

== ENCOUNTER 2021-03-01 21:09 | Emergency (ER) | payer MEDICARE, OTHER, SELFPAY ==
[2021-03-01 21:10] VITALS: BP 168/99; PULSE 78; RESP 18; TEMP 36.9; O2SAT 92; BMI 29.9
[2021-03-01 21:14] VITALS: O2SAT 92
--- NOTE | 2021-03-01 21:25 | EDS_ITS ---
HPI <Dr. Cirilo Sal MD - Last Filed: 03/01/21 22:52> History of Present Illness Chief Complaint: Fall Informant: patient, EMS and SNF Onset/Context/Timing Onset: Hours Mechanism/Context: Blunt Injury and Fall (Patient fell getting into bed) Current Severity: Moderate Maximum Severity: Moderate Worsened by: Unknown Relieved by: Nothing Associated Symptoms Associated Symptoms: Positive for - (Unknown since patient has dementia. She is DNR [facility] arrest) Length of loss of consciousness: Unknown Narrative Narrative: Patient is an elderly woman who resides at a nursing facility. She is not on an anticoagulant. She presents because of blunt head trauma and neck pain upon questioning. She also complains of left foot pain. She states she resides at a nursing facility. She does not know she was knocked out. She does complain of head pain and headache. She denies change in vision, ringing or ears decreased hearing. She denies blood from her nose. Denies injury to her mouth. She denies chest pain. Denies shortness of breath. Denies nausea or vomiting. She denies pain to her right or left upper extremity. She denies pain to the right lower extremity. She states she has a deformity due to bad arthritis of the right ankle. She does complain of pain left foot. There is a bruise noted near the proximal phalanx of left great toe/first metatarsal of the left toe. Tetanus Immunization: 5-10 years Prior similar symptoms: No Recent Illness/Hospitalization: No PFSH <Dr. 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 Chronic atrial fibrillation Chronic gastrojejunal ulcer Chronic kidney disease Chronic pain Corneal dystrophy Cutaneous abscess of abdominal wall Degenerative arthritis Dementia Dysphasia Endothelial corneal dystrophy Essential hypertension Fall Generalized weakness Glaucoma Hallucination Heart failure History of blood clots History of COVID-19 History of pulmonary embolus (PE) Hypertension Hypothyroidism Immune thrombocytopenia Incontinence Insomnia Intertriginous dermatitis associated with moisture Intervertebral disc degeneration Iron deficiency anemia Iron deficiency anemia due to chronic blood loss Iron deficiency anemia due to dietary causes [facility] current use of anticoagulant Lower back pain Necrotizing soft tissue infection Neutropenia Osteoporosis Overactive bladder Pannus, abdominal Paroxysmal atrial flutter Peripheral vascular disease Psychotic disorder with delusions Pulmonary embolism Pulmonary embolism Skin ulcer Skin ulcer of abdominal wall with fat layer exposed Sleep apnea Tear of skin of left buttock Home Medications artificial tears(hypromellose) 0.3 % eye gel 1 drp EACH EYE 4X/DAY PRN 05/24/17 [History Last Taken 12/07/20] prednisolone acetate 1 % eye drops,suspension 1 drp RIGHT EYE DAILY 05/24/17 [History Last Taken 12/07/20] docusate sodium 100 mg capsule 100 mg PO BID cap 09/24/18 [History Last Taken 12/07/20] acetaminophen 2 tab PO TID PRN PRN 01/02/19 [History Last Taken 02/24/19] sennosides-docusate sodium 1 ea PO DAILY PRN 01/02/19 [History Last Taken 12/07/20] magnesium hydroxide 30 ml PO DAILY PRN 02/25/19 [History Last Taken 12/02/20] levothyroxine 100 mcg PO DAILY 09/22/19 [History Last Taken 12/07/20] acetaminophen 500 mg tablet 1,000 mg PO BID tab 10/27/19 [History Last Taken 12/07/20] cholecalciferol (vitamin D3) 25 mcg (1,000 unit) tablet 25 mcg PO DAILY 10/27/19 [History Last Taken 12/07/20] cyanocobalamin (vitamin B-12) 500 mcg tablet 500 mcg PO DAILY 10/27/19 [History Last Taken 12/07/20] diltiazem HCl 180 mg capsule,24 hr,extended release 180 mg PO DAILY 10/27/19 [History Last Taken 12/07/20] oxycodone 5 mg tablet 5 mg PO BID 10/27/19 [History Last Taken 12/07/20] pantoprazole 40 mg tablet,delayed release 40 mg PO DAILY tab 10/27/19 [History Last Taken 12/07/20] solifenacin 10 mg tablet 10 mg PO DAILY 10/27/19 [History Last Taken 12/07/20] buspirone 5 mg tablet 10 mg PO BID tab 12/30/19 [History Last Taken 12/07/20] latanoprost 1 drp RIGHT EYE QHS 12/07/20 [History Last Taken 12/06/20] multivitamin [Daily-Katlin] 1 tab PO DAILY 12/07/20 [History Last Taken 12/07/20] polysaccharide iron complex [Ferrex 150] 150 mg PO DAILY 12/07/20 [History Last Taken 12/07/20] quetiapine [Seroquel] 25 mg PO DAILY 12/07/20 [History Last Taken 12/07/20] quetiapine [Seroquel] 50 mg PO LUNCH 12/07/20 [History Last Taken 12/07/20] quetiapine [Seroquel] 50 mg PO QHS 12/07/20 [History Last Taken 12/07/20] sertraline 50 mg PO DAILY 12/07/20 [History Last Taken 12/06/20] sucralfate [Carafate] 1 g PO BID 12/07/20 [History Last Taken Unknown] cephalexin 500 mg PO Q12 5 Days #10 cap 12/10/20 [Rx Last Taken Unknown] furosemide 20 mg PO DAILY #0 tab 12/10/20 [Rx Last Taken 12/06/20] lorazepam 0.5 mg PO DAILY 7 Days #7 tab 12/10/20 [Rx Last Taken Unknown] lorazepam 0.5 mg PO Q6H PRN PRN 7 Days #10 tab 12/10/20 [Rx Last Taken Unknown] oxycodone 5 - 10 mg PO Q4H PRN PRN 7 Days #10 tab 12/10/20 [Rx Last Taken Unknown] lactulose 20 g DAILY 03/01/21 [History Last Taken Unknown] Allergy/AdvReac Type Severity Reaction Status Date / Time gentamicin AdvReac shaking, Verified 03/01/21 21:14 dizziness Family History Father Heart disease Cancer prostate Mother No problems noted. Surgical History History of Achilles tendon repair History of cholecystectomy History of colonoscopy History of left heart catheterization (09/19/16) Social History (Updated 03/01/21 @ 21:[address] Cirilo Sal MD) housing: care home Smoking Status: Never smoker alcohol intake: never substance use type: does not use what type of physical activity do you participate in: none ROS <Dr. Cirilo Sal MD - Last Filed: 03/01/21 22:52> ROS ED Review of Systems ROS Unobtainable: due to mental status Eyes Eyes: Denies blurry vision or change in vision ENT ENT ED: Denies ear pain or sore throat Cardiovascular Cardiovascular: Denies chest pain Respiratory/Chest Respiratory/Chest: Denies dyspnea Gastrointestinal Gastrointestinal: Denies abdominal pain, diarrhea or vomiting Musculoskeletal Musculoskeletal: Reports neck pain and other Details: Foot pain and neck pain ; Denies arthralgias, back pain or myalgias Neurologic Neurologic: Reports headache(s) EXAM <Dr. Cirilo Sal MD - Last Filed: 03/01/21 22:52> Physical Exam Const Vital Signs: 03/01/21 21:10 03/01/21 21:14 03/01/21 22:47 Temperature 98.4 F Temperature Source Oral Pulse Rate 78 78 Respiratory Rate 18 19 H Respiratory Effort Normal Respiratory Depth Normal Respiratory Pattern Normal Blood Pressure 168/99 H Blood Pressure Mean 122 Pulse Ox 92 92 Oxygen Delivery Method Room Air Room Air 03/01/21 23:02 03/01/21 23:40 03/02/21 00:07 Temperature Temperature Source Pulse Rate 79 77 77 Respiratory Rate 18 16 15 Respiratory Effort Respiratory Depth Respiratory Pattern Blood Pressure 174/90 H 139/68 H 136/74 H Blood Pressure Mean 118 91 94 Pulse Ox 97 97 Oxygen Delivery Method Room Air 03/02/21 00:19 03/02/21 00:47 03/02/21 01:17 Temperature 98.1 F Temperature Source Temporal Pulse Rate 78 115 H Respiratory Rate 12 15 Respiratory Effort Respiratory Depth Respiratory Pattern Blood Pressure 120/76 131/93 H Blood Pressure Mean 90 105 Pulse Ox 99 99 Oxygen Delivery Method Room Air Positive well nourished and well developed General Appearance ED: well developed and NAD HEENT Reports TM's clear HEENT Narrative: Patient has a large subcutaneous hematoma forehead. There is no subconjunctival hemorrhage noted. There is no palpable depression. There is no clinical findings of basilar skull fracture. trauma and tenderness Nose: Negative for septum abnormal Tympanic Membrane ED: Yes TM's clear Eyes PERRL and EOMs intact bilaterally General Eye ED: Yes other Other Details: There is no jaundice. Conjunctive is pink. Neck Neck Narrative: Since patient has tenderness and has altered mental status C- spine imaging was obtained since she cannot be cleared per Nexus criteria. General: tenderness Chest Wall inspection of chest normal and palpation of chest normal Resp clear to auscultation bilaterally Cardio no murmurs Rate: regular rate Rhythm: abnormal rhythm GI normal to inspection, nondistended, normoactive bowel sounds, non-tender and non-distended Palpation: soft Back/Spine normal to inspection and no thoracic nor lumbar tenderness General Back: Negative for CVA tenderness Thoracic Spine / Upper Back: Negative for thoracic spinal tenderness Extremity Negative for normal to inspection or full ROM Extremity Narrative: There is ecchymosis noted near the proximal phalanx/first metatarsal left foot General Extremety ED: Yes tenderness; Negative for deformity General Extremity: Negative for deformity Neuro Plantar Reflex: Downgoing: bilateral Psych Negative for mental status grossly normal or thought process normal Skin no rashes or lesions noted, No no wounds and no jaundice General Skin Exam: other Lower forehead hematoma with abrasion Trauma: abrasion <Dr. Noé Purcell DO - Last Filed: 03/02/21 03:40> Physical Exam Const Vital Signs: 03/01/21 21:10 03/01/21 21:14 03/01/21 22:47 Temperature 98.4 F Temperature Source Oral Pulse Rate 78 78 Respiratory Rate 18 19 H Respiratory Effort Normal Respiratory Depth Normal Respiratory Pattern Normal Blood Pressure 168/99 H Blood Pressure Mean 122 Pulse Ox 92 92 Oxygen Delivery Method Room Air Room Air 03/01/21 23:02 03/01/21 23:40 03/02/21 00:07 Temperature Temperature Source Pulse Rate 79 77 77 Respiratory Rate 18 16 15 Respiratory Effort Respiratory Depth Respiratory Pattern Blood Pressure 174/90 H 139/68 H 136/74 H Blood Pressure Mean 118 91 94 Pulse Ox 97 97 Oxygen Delivery Method Room Air 03/02/21 00:19 03/02/21 00:47 03/02/21 01:17 Temperature 98.1 F Temperature Source Temporal Pulse Rate 78 115 H Respiratory Rate 12 15 Respiratory Effort Respiratory Depth Respiratory Pattern Blood Pressure 120/76 131/93 H Blood Pressure Mean 90 105 Pulse Ox 99 99 Oxygen Delivery Method Room Air MDM <Dr. Cirilo Sal MD - Last Filed: 03/01/21 22:52> [facility] MDM Narrative Medical decision making narrative: CT of the head was obtained to rule out intracranial bleed. C-spine imaging was obtained to rule out neck injury since she cannot be cleared per Nexus criteria. X-ray of the foot was obtained to evaluate for fracture involving the proximal phalanx/first metatarsal left foot. Lab Data Labs: Laboratory Results - last 24 hr 03/01/21 03/01/21 03/01/21 23:00 23:00 23:00 WBC 7.5 RBC 3.92 L Hgb 12.4 Hct 38.0 MCV 96.9 MCH 31.6 MCHC 32.6 RDW Std Deviation 44.8 H RDW Coeff of Migdalia 12.5 Plt Count 102 L MPV 11.7 Immature Gran % (Auto) 1.600 H Neut % (Auto) 79.6 H Lymph % (Auto) 9.1 L Humphreys % (Auto) 8.8 Eos % (Auto) 0.8 Baso % (Auto) 0.1 Absolute Neuts (auto) 5.9 Absolute Lymphs (auto) 0.68 L Nucleated RBC % 0 PT 13.9 INR 1.1 APTT 28.4 Sodium 142 Potassium 4.1 Chloride 103 Carbon Dioxide 32.0 Anion Gap 7 BUN 34 H Creatinine 1.17 H Estim Creat Clear Calc 32.01 Est GFR (MDRD) Af Amer 57 L Est GFR (MDRD) Non-Af 47 L BUN/Creatinine Ratio 29.1 H Glucose 135 H Calcium 9.8 Radiography Diagnostic Testing: Clinical Impression(s) from Imaging Studies Foot X-Ray 03/01/21 21:33 IMPRESSION: Subtle fracture at the base of the first second and third proximal phalanx. Electronically Signed: Yoan Coelho MD at 21:50 EST , Service support , Brain CT 03/01/21 21:46 IMPRESSION: No CT evidence of acute intracranial hemorrhage or injury. C1 Philippe burst fracture. Anterior frontal superficial soft tissue hematoma and nasal bridge edema with suggestion of fracture of the left anterior tip of the nasal bone. No evidence of calvarial fracture. Individualized dose optimization techniques were used for this CT. at 2226 Reported and signed by: Mateo Mireles MD Electronically Signed: Mateo Mireles MD at 22:25 EST Tel , Service support , Cervical Spine CT 03/01/21 21:46 IMPRESSION: C1 Philippe burst fracture. C7 anterior inferior vertebral body corner fracture. Diffuse spondylosis. Individualized dose optimization techniques were used for this CT. at 2234 Reported and signed by: Mateo Mireles MD Electronically Signed: Mateo Mireles MD at 22:33 EST Tel , Service support , ADDENDUM: 03/01/21 2251 IMPRESSION: C1 Philippe burst fracture. C7 anterior inferior vertebral body corner fracture. Diffuse spondylosis. Individualized dose optimization techniques were used for this CT. at 2234 Reported and signed by: Mateo Mireles MD N.B. : The above Results were Read Back by Mateo Mireles MD to Noé Morillo MD, and understanding confirmed on 03/01/2021 22:44:30 (ET). Electronically Signed: Mateo Mireles MD at 22:33 EST Tel , Service support , Three-view x-ray of the left foot reveals a fracture of the proximal phalanx left great toe, second toe and possibly third. The fracture is not intra- articular. The radiology report was read and he documents fracture of the first second third proximal phalanx CT of the head reveals a large hematoma forehead region. There is no obvious fracture. There is no evidence of subdural, epidural, contusion or traumatic subarachnoid hemorrhage. C-spine reveals significant degenerative changes with disc space narrowing. There is a C1 burst fracture. Awaiting official read by radiologist. <Dr. Noé Purcell, DO - Last Filed: 03/02/21 03:40> [facility] Narrative Medical decision making narrative: 2350: Le. Patient signed out to me awaiting discussion with transfer line. EKG rate controlled atrial flutter. Labs are stable platelets 102 history of ITP. No current anticoagulation medicines. DNR CCA. Patient unstable C1 C7 fracture. Nondisplaced left toes fracture 1 through 3. Due to Covid pandemic, local facilities had no availabilities with multiple call outs. Discussed with [facility] with trauma team. Patient is excepted to the ED under service Dr. Angela Rodrigues. Initially given morphine for pain, will add additional fentanyl after reevaluation of the patient reporting pain in her neck. She is moving all 4 extremities. She is in a [place] collar. There is no [place] J collars available. She is maintained in C-spine precautions. I updated patient's brother and POMargaret Burden, for plan to transfer to [facility]. Lab Data Attestation: I reviewed the patient's lab results. Labs: Laboratory Results - last 24 hr 03/01/21 03/01/21 03/01/21 23:00 23:00 23:00 WBC 7.5 RBC 3.92 L Hgb 12.4 Hct 38.0 MCV 96.9 MCH 31.6 MCHC 32.6 RDW Std Deviation 44.8 H RDW Coeff of Migdalia 12.5 Plt Count 102 L MPV 11.7 Immature Gran % (Auto) 1.600 H Neut % (Auto) 79.6 H Lymph % (Auto) 9.1 L Humphreys % (Auto) 8.8 Eos % (Auto) 0.8 Baso % (Auto) 0.1 Absolute Neuts (auto) 5.9 Absolute Lymphs (auto) 0.68 L Nucleated RBC % 0 PT 13.9 INR 1.1 APTT 28.4 Sodium 142 Potassium 4.1 Chloride 103 Carbon Dioxide 32.0 Anion Gap 7 BUN 34 H Creatinine 1.17 H Estim Creat Clear Calc 32.01 Est GFR (MDRD) Af Amer 57 L Est GFR (MDRD) Non-Af 47 L BUN/Creatinine Ratio 29.1 H Glucose 135 H Calcium 9.8 Radiography Diagnostic Testing: Clinical Impression(s) from Imaging Studies Foot X-Ray 03/01/21 21:33 IMPRESSION: Subtle fracture at the base of the first second and third proximal phalanx. Electronically Signed: Yoan Coelho MD at 21:50 EST , Service support , Brain CT 03/01/21 21:46 IMPRESSION: No CT evidence of acute intracranial hemorrhage or injury. C1 Philippe burst fracture. Anterior frontal superficial soft tissue hematoma and nasal bridge edema with suggestion of fracture of the left anterior tip of the nasal bone. No evidence of calvarial fracture. Individualized dose optimization techniques were used for this CT. at 2226 Reported and signed by: Mateo Mireles MD Electronically Signed: Mateo Mireles MD at 22:25 EST Tel , Service support , Cervical Spine CT 03/01/21 21:46 IMPRESSION: C1 Philippe burst fracture. C7 anterior inferior vertebral body corner fracture. Diffuse spondylosis. Individualized dose optimization techniques were used for this CT. at 2234 Reported and signed by: Mateo Mireles MD Electronically Signed: Mateo Mireles MD at 22:33 EST Tel , Service support , ADDENDUM: 03/01/21 2251 IMPRESSION: C1 Philippe burst fracture. C7 anterior inferior vertebral body corner fracture. Diffuse spondylosis. Individualized dose optimization techniques were used for this CT. at 2234 Reported and signed by: Mateo Mireles MD N.B. : The above Results were Read Back by Mateo Mireles MD to Noé Morillo MD, and understanding confirmed on 03/01/2021 22:44:30 (ET). Electronically Signed: Mateo Mireles MD at 22:33 EST Tel , Service support , EKG Initial EKG: Comments: Atrial flutter, rate of 70, no ST or T wave changes. <Dr. Cirilo Sal MD - Last Filed: 03/01/21 22:52> Critical Care Time Critical Care Time: Yes Critical care time (excluding procedures): 30-74 minutes (33), Including time spent: (History, physical, documentation, review of paperwork that accompanied patient from nursing facility, discussion with him her brother who is the POA), Discussing w/Patient &/or Family/Distilling Department Supervisor, Discussing w/Consultants and Arranging Admission or Transfer Discharge Plan Triage Chief Complaint: Fall ED Provider: Noé Purcell Dx/Rx/DC Orders Clinical Impression: Fall with injury, Closed C1 fracture, Fracture of C7 vertebra, closed, Closed fracture of proximal phalanx of left great toe, Fracture of left toe, Traumatic hematoma of forehead Prescriptions: No Action prednisolone acetate 1 % drops,suspension 1 drp RIGHT EYE DAILY RF: 0 artificial tears(hypromellose) [Systane Gel] 0.3 % gel 1 drp EACH EYE 4X/DAY PRN (Reason: Dry Eyes) RF: 0 docusate sodium 100 mg capsule 100 mg PO BID RF: 0 cholecalciferol (vitamin D3) 25 mcg (1,000 unit) tablet 25 mcg PO DAILY RF: 0 diltiazem HCl 180 mg capsule,extended release 24 hr 180 mg PO DAILY RF: 0 acetaminophen 500 mg tablet 1,000 mg PO BID RF: 0 solifenacin 10 mg tablet 10 mg PO DAILY RF: 0 cyanocobalamin (vitamin B-12) [Vitamin B-12] 500 mcg tablet 500 mcg PO DAILY RF: 0 buspirone 5 mg tablet 10 mg PO BID RF: 0 levothyroxine 100 MCG tablet 100 mcg PO DAILY RF: 0 oxycodone 5 mg tablet 5 mg PO BID RF: 0 sennosides-docusate sodium 1 EACH tablet 1 ea PO DAILY PRN (Reason: Constipation) RF: 0 acetaminophen 500 MG tablet 2 tab PO TID PRN PRN (Reason: Pain Or Fever) RF: 0 magnesium hydroxide 30 ML suspension 30 ml PO DAILY PRN (Reason: Constipation) RF: 0 pantoprazole 40 mg tablet,delayed release (DR/EC) 40 mg PO DAILY RF: 0 multivitamin [Daily-Katlin] Tablet 1 tab PO DAILY RF: 0 quetiapine [Seroquel] 25 mg Tablet 25 mg PO DAILY RF: 0 latanoprost 0.005 % Drops 1 drp RIGHT EYE QHS RF: 0 sucralfate [Carafate] 1 gram Tablet 1 g PO BID RF: 0 polysaccharide iron complex [Ferrex 150] 150 mg iron Capsule 150 mg PO DAILY RF: 0 sertraline 50 mg Tablet 50 mg PO DAILY RF: 0 quetiapine [Seroquel] 50 mg Tablet 50 mg PO LUNCH RF: 0 quetiapine [Seroquel] 50 mg Tablet 50 mg PO QHS RF: 0 lorazepam 0.5 mg Tablet 0.5 mg PO Q6H PRN PRN (Reason: Anxiety) 7 Days Qty: 10 RF: 0 lorazepam 0.5 mg Tablet 0.5 mg PO DAILY 7 Days Qty: 7 RF: 0 oxycodone 5 mg Tablet 5 - 10 mg PO Q4H PRN PRN (Reason: PAIN 6-01/01) 7 Days Qty: 10 RF: 0 cephalexin 500 mg Capsule 500 mg PO Q12 5 Days Qty: 10 RF: 0 furosemide 20 mg tablet 20 mg PO DAILY Qty: 0 RF: 0 lactulose 20 gram/30 mL Solution 20 g DAILY RF: 0 Primary Care Provider: Chung Marcos Referrals: Chung Marcos DO [Primary Care Provider] - Disposition Disposition: Transfer to Another Type HCF Discharge Location: [facility] Discharge Date/Time: 03/02/21 03:19
--- NOTE | 2021-03-01 21:33 | RAD_ITS ---
EXAM: XR LEFT FOOT COMPLETE, 3 OR MORE VIEWS CLINICAL INDICATION: Injury/Pain TECHNIQUE: Frontal, lateral and oblique views of the left foot. This report was created using [employer] report generation technology. COMPARISON: None. FINDINGS: BONES/JOINTS: Subtle fracture at the base of the first second and third proximal phalanx. Degenerative findings of the ankle mortise. Healed distal fifth metatarsal bone. Multiple screws throughout the calcaneus and tarsal bones. Tarsal fusion. No sclerotic or destructive changes observed. SOFT TISSUES: Unremarkable. No soft tissue swelling or gas. No radiopaque foreign body. VASCULATURE: There are atherosclerotic vascular calcifications. OTHER FINDINGS: Demineralization of the foot. RAD/Foot min 3 Views IMPRESSION: Subtle fracture at the base of the first second and third proximal phalanx. Electronically Signed: Yoan Coelho MD at 21:50 EST , Service support ,
--- NOTE | 2021-03-01 21:46 | CT_ITS ---
HISTORY: Injury/Pain TECHNIQUE: Multiple axial images were obtained of the brain without intravenous contrast. Coronal and sagittal reformats obtained. Bone algorithm axial images obtained. A radiation dose optimization technique was used for this scan. COMPARISON: Cervical spine CT on same day. CT head July 19, 2020 FINDINGS: # of images incl. paperwork: 241 HEMORRHAGE: No evidence of acute intracranial hemorrhage. CEREBRAL PARENCHYMA: Senescent basal ganglial mineralization. --Volume: Unremarkable for age. --White matter: Unremarkable. --Mass: No evidence of intracranial mass. --Stroke: Olivarez-white matter differentiation is preserved. VENTRICULAR SYSTEM: No hydrocephalus. MASS EFFECT: No midline shift or focal sulci effacement. Basal cisterns are preserved. SCALP: Anterior frontal superficial soft tissue hematoma and nasal bridge edema. Slight buckling of the left anterior nasal bone. CALVARIUM/SKULL BASE: No calvarial fracture. Acute fracture of the anterior C1 ring and bilateral C1 lamina. PARANASAL SINUSES: Clear. MASTOID AIR CELLS: Clear. ORBITS: Imaged portions are unremarkable. VESSELS: Carotid and vertebral atherosclerosis. ASPECTS acute stroke score: 10 CT/Brain/Head without Contrast IMPRESSION: No CT evidence of acute intracranial hemorrhage or injury. C1 Philippe burst fracture. Anterior frontal superficial soft tissue hematoma and nasal bridge edema with suggestion of fracture of the left anterior tip of the nasal bone. No evidence of calvarial fracture. Individualized dose optimization techniques were used for this CT. at 2226 Reported and signed by: Mateo Mireles MD Electronically Signed: Mateo Mireles MD at 22:25 EST Tel , Service support ,
--- NOTE | 2021-03-01 21:46 | CT_ITS ---
We are attempting to reach an attending provider to discuss findings. An addendum with communication details will be sent when the communication is complete. HISTORY: Injury/Pain TECHNIQUE: Helically acquired images were obtained of the cervical spine without contrast. 2D reformatted images were reviewed. A radiation dose optimization technique was used for this scan. COMPARISON: CT head on same day FINDINGS: # of images incl. paperwork: 380 SOFT TISSUES: No prevertebral soft tissue swelling. ALIGNMENT: Reversal of the normal cervical lordosis without listhesis. FRACTURE: C1 Philippe burst fracture with a fracture through the anterior arch and bilateral lamina. C7 anterior inferior vertebral body nondisplaced corner fracture without vertebral height loss, sagittal image 35. DISC SPACES/POSTERIOR ELEMENTS: Multilevel disc height loss with small posterior disc osteophyte complexes and facet arthropathy, most prominent at C3-C4 C4-C5 and C6-C7 with moderate spinal canal stenosis. Scattered bilateral moderate to severe neuroforaminal stenosis neuroforaminal narrowing. LUNG APICES: Visualized portions are unremarkable. THYROID: Visualized portions are unremarkable. SKULL BASE: Visualized portions are unremarkable. CT/Spine Cervical without Contras IMPRESSION: C1 Philippe burst fracture. C7 anterior inferior vertebral body corner fracture. Diffuse spondylosis. Individualized dose optimization techniques were used for this CT. at 2234 Reported and signed by: Mateo Mireles MD Electronically Signed: Mateo Mireles MD at 22:33 EST Tel , Service support ,
[2021-03-01 22:47] VITALS: PULSE 78; RESP 19
--- NOTE | 2021-03-01 22:58 | EKG12_ITS ---
Test Reason : FALL Blood Pressure : / mmHG Vent. Rate : 078 BPM Atrial Rate : 312 BPM P-R Int : 000 ms QRS Dur : 122 ms QT Int : 410 ms P-R-T Axes : 248 -25 073 degrees QTc Int : 467 ms Atrial flutter Nonspecific ST and T wave abnormality Abnormal ECG Confirmed by KARTIK MENDOZA, PACO ([id number]), industrial editor MELANIA CHRISTOPHER ([id number]) on 03/03/2021 1:28:22 PM Referred By: BROOKE Confirmed By:PACO VERDUGO MD
[2021-03-01 23:02] VITALS: BP 174/90; PULSE 79; RESP 18
[2021-03-01] MEDS: Morphine 4 MG/ML Syringe IV (23:08)
[2021-03-01] MEDS: Ondansetron 4 MG/2 ML Vial IV (23:09)
[2021-03-01 23:19] LABS: International Normalized Ratio 1.1; Partial Thromboplast Time 28.4 Seconds (24.1-36.2); Prothrombin Time (Protime)PT. 13.9 SECONDS (11.7-14.9)
[2021-03-01 23:24] LABS: Anion Gap 7 (5-15); BUN 34 mg/dL (7-18); BUN/Creat Ratio 29.1 RATIO (10-20); Calcium,Total 9.8 mg/dL (8.5-10.1); Chloride 103 mmol/L (98-107); Creatinine, Serum 1.17 mg/dL (0.55-1.02); EST Glomerular Filtration Rate 47 mL/min (>60); Est Glom Filt Rate - Afr Amer 57 mL/min (>60); Estimated Creatinine Clearance 32.01 ml/min; Glucose 135 mg/dL (74-106); Potassium 4.1 mmol/L (3.5-5.1); Sodium Level 142 mmol/L (136-145)
[2021-03-01 23:31] LABS: Absolute Lymphocyte Count 0.68 X10^3/uL (0.83-4.51); Absolute Neutrophil Count 5.9 X10^3/uL (2.0-7.7); Basophil# 0.01 X10^3/uL; Basophil% 0.1 % (0-1); Eosinophil# 0.06 X10^3/uL; Eosinophils% 0.8 % (0-5); Hemoglobin 12.4 g/dL (12.0-15.0); Lymphocyte # 0.68 X10^3/ul (0.83-4.51); Lymphocyte % 9.1 % (19-41); Mean Corp Hgb Conc 32.6 g/dL (32-36); Mean Corpuscular Hgb 31.6 pg (27.0-32.0); Mean Corpuscular Volume 96.9 fL (81-99); Mean Platelet Vol. 11.7 fl (6.2-12.0); Monocyte# 0.66 X10^3/uL; Monocyte% 8.8 % (0-10); NRBC Flagged by Analyzer 0 % (0-5); Neutrophil # 5.94 X10^3/uL (2.7-7.7); Neutrophil % 79.6 % (47-70); Platelet Count 102 K/mm3 (150-450); RBC Distribution Width CV 12.5 % (11.6-14.6); RBC Distribution Width SD 44.8 fl (35.1-43.9); Red Blood Count 3.92 M/mm3 (4.2-5.4); White Blood Count 7.5 K/mm3 (4.4-11.0)
[2021-03-01 23:40] VITALS: BP 139/68; PULSE 77; RESP 16; O2SAT 97
[2021-03-02] MEDS: fentaNYL 100 MCG/2 ML Ampul 25 MCG IV ×2 (00:04→03:05)
[2021-03-02 00:07] VITALS: BP 136/74; PULSE 77; RESP 15; O2SAT 97
--- NOTE | 2021-03-02 00:07 | PCA ---
[facility] 90MIN-2HR ETA FOR PICKUP
--- NOTE | 2021-03-02 00:10 | ED.RN ---
JEM Weeks, is aware of transfer and eta for squad.
[2021-03-02 00:19] VITALS: TEMP 36.7
[2021-03-02 00:47] VITALS: BP 120/76; PULSE 78; RESP 12; O2SAT 99
[2021-03-02 01:17] VITALS: BP 131/93; PULSE 115; RESP 15; O2SAT 99
--- NOTE | 2021-03-02 02:57 | ED.RN ---
Pt has brusing biilat eyes but no drainage from ears or nose. gear straightener will be here any minute for transport -- await transfer.
== END 2021-03-02 03:19 | disposition other institution (70) ==
PROVIDERS: Emergency Medicine; Emergency Provider Emergency Medicine; PCP Family Medicine
DX: S12.000A Unspecified displaced fracture of first cervical vertebra, initial encounter for closed fracture (principal); S12.600A Unspecified displaced fracture of seventh cervical vertebra, initial encounter for closed fracture; S00.83XA Contusion of other part of head, initial encounter; S02.2XXA Fracture of nasal bones, initial encounter for closed fracture; S92.412A Displaced fracture of proximal phalanx of left great toe, initial encounter for closed fracture; W19.XXXA Unspecified fall, initial encounter; Y93.9 Activity, unspecified; Y92.129 Unspecified place in nursing home as the place of occurrence of the external cause; E03.9 Hypothyroidism, unspecified; I48.92 Unspecified atrial flutter; G30.9 Alzheimer's disease, unspecified; F02.80 Dementia in other diseases classified elsewhere, unspecified severity, without behavioral disturbance, psychotic disturbance, mood disturbance, and anxiety; G47.30 Sleep apnea, unspecified; G89.29 Other chronic pain; H40.9 Unspecified glaucoma; D69.3 Immune thrombocytopenic purpura; I13.0 Hypertensive heart and chronic kidney disease with heart failure and stage 1 through stage 4 chronic kidney disease, or unspecified chronic kidney disease; N18.9 Chronic kidney disease, unspecified; I73.9 Peripheral vascular disease, unspecified; I50.9 Heart failure, unspecified; I48.20 Chronic atrial fibrillation, unspecified; N32.81 Overactive bladder; M81.0 Age-related osteoporosis without current pathological fracture; M16.0 Bilateral primary osteoarthritis of hip; M19.071 Primary osteoarthritis, right ankle and foot; Z87.19 Personal history of other diseases of the digestive system; Z86.16 Personal history of COVID-19; Z86.711 Personal history of pulmonary embolism; Z86.718 Personal history of other venous thrombosis and embolism; Z79.01 Long term (current) use of anticoagulants; Z79.899 Other long term (current) drug therapy
CPT/HCPCS: 70450; 72125; 73630; 80048; 85025; 85610; 85730; 87426; 93005; 96374; 96375; 96376; 99285; A4216; J2405

== ENCOUNTER → 2021-06-05 | Outpatient (REF) | payer MEDICARE, OTHER, SELFPAY ==
[2021-06-05 09:09] LABS: Thyroid Stim Hormone (TSH) 1.63 uIU/mL (0.358-3.74)
== END | disposition home or self-care (01) ==
LOC: OLS.ACH 05:00
PROVIDERS: PCP Family Medicine; Visit Provider Family Medicine
DX: E03.9 Hypothyroidism, unspecified (principal)
CPT/HCPCS: 36415; 84443